=== PATIENT | female | born 1995 | race Caucasian/White ===

== ENCOUNTER 2016-10-21 02:12 | Emergency (ER) | payer MEDICAID ==
[~2016-10-21] VITALS: Ht 162.6 cm; Wt 65.5 kg
[~2016-10-21 02:12] MED LIST: AMOX-355 PO; AMOX500C2 PO; AMPI500C9 PO; CEFU500T PO; CEPH-38 PO; CEPH-507 PO; CEPH500C PO; CITA40TA11 PO; DEXT30SU5 PO; DOXY1TAB3 PO; FRS325T PO; GFCD10B PO; GUAN1TAB14 PO; NAPR-243 PO; NITR-65 PO; NITR100C3 PO; ONDA-42 SL; ONDA8TAB13 PO; ONDA8TAB9 PO; ONDAN4ODT PO; ONDN4T PO; PHEN-639 PO; PHEN100T17 PO; PHEN200T27 PO; PNV91TAB3 PO; PRD20T PO; PREN-115 PO; SERT100T PO; SERT50TA PO; SERT50TA9 PO; SULF-222 PO; TRM50T PO; [UNRECOGNIZED DRUG - CODE] PO
--- NOTE | 2016-10-21 02:36 | ED Cough/URI ---
General Chief Complaint: Cough/Cold/Flu Symptoms Stated Complaint: COUGHING NAUSEA HARD BREATHING Source: patient, RN notes reviewed Exam Limitations: no limitations History of Present Illness Time seen by provider: 02:34 Initial Comments Symptoms continue despite being given an antibiotic approx. 2 weeks ago. Has no idea what the antibiotic was and who prescribed it. Has used an albuterol inhaler in past, but is out. Timing/Duration: other (started around 10/07/16) Severity/Quality: severe, dry cough Prior Episodes/Possible Cause: no prior episodes Modifying Factors: Worse With Coughing Associated Symptoms: cough, shortness of breath Allergies and Home Medications Allergies Coded Allergies: No Known Drug Allergies (Unverified , 12/06/10) Home Medications Albuterol Sulfate 8.5 Gm Hfa.aer.ad #1 1-2 PUFF IH Q4H PRN PRN cough; SOA; wheezing Prescribed by: TACOS KAUR on 10/21/16333 Azithromycin 250 Mg Tablet #4 250 MG PO DAILY Prescribed by: TACOS KAUR on 10/21/16333 Pnv95/Ferrous Fumarate/FA 1 Each Tablet 1 EACH PO DAILY (Reported) Sertraline HCl 50 Mg Tablet 50 MG PO DAILY (Reported) Constitutional: see HPI Respiratory: see HPI cough short of breath : Yes All Other Systems Reviewed Negative Unless Noted: Yes (Negative excepted noted.) Past Uhzhatw-Dljzbb-Fubcry Hx Patient Social History Type Used: Cigarettes Former Smoker/When Quit: Jun 20, 2013 Recent Foreign Travel: No Contact w/Someone Who Travel: No Recent Hopitalizations: No (multiple recent ER visits) Immunizations Up To Date Tetanus Booster (TDap): More than 5yrs Date of Influenza Vaccine: Aug 20, 2014 Seasonal Allergies Seasonal Allergies: Yes Surgeries HX Surgeries: No Respiratory Hx Respiratory Disorders: Yes (WINTER INDUCED ASTHMA) Respiratory Disorders: Asthma Cardiovascular Hx Cardiac Disorders: No Neurological Hx Neurological Disorders: No Reproductive System Hx Reproductive Disorders: No Sexually Transmitted Disease: Yes HIV/AIDS: No Female Reproductive Disorders: Denies Genitourinary Hx Genitourinary Disorders: Yes Genitourinary Disorders: UTI-Chronic Gastrointestinal Hx Gastrointestinal Disorders: Yes Gastrointestinal Disorders: Gastroesophageal Reflux Musculoskeletal Hx Musculoskeletal Disorders: No Endocrine Hx Endocrine Disorders: No HEENT HX ENT Disorders: No Cancer Hx Cancer: No Psychosocial Hx Psychiatric Problems: Yes Behavioral Health Disorders: Anxiety, Depression Integumentary HX Skin/Integumentary Disorder: No Blood Transfusions Hx Blood Disorders: No Family Medical History Significant Family History: No Pertinent Family Hx Family Medial History: Family history: Asthma 03 MOTHER Family history: Diabetes mellitus 03 MOTHER History of - disorder 03 MOTHER Physical Exam Vital Signs Vital Sign - Last 12Hours 10/21/16 02:34 Temp 98.1 Pulse 97 Resp 16 B/P 128/81 Pulse Ox 95 Capillary Refill : General Appearance: WD/WN no apparent distress HEENT: pharynx normal Respiratory: lungs clear no respiratory distress decreased breath sounds Cardiovascular: regular rate, rhythm Gastrointestinal: other ((+) ) Neurologic/Psychiatric: no motor/sensory deficits alert normal mood/affect oriented x 3 Skin: warm/dry Progress/Results/Core Measures Results/Orders Lab Results Laboratory Tests Test 10/21/16 02:51 Range/Units Basophils # (Auto) 0.0 0.0-0.1 10^3/uL Basophils (%) (Auto) 0 0-10 % Eosinophils # (Auto) 0.4 H 0.0-0.3 10^3/uL Eosinophils (%) (Auto) 3 0-10 % Hematocrit 34 L 35-52 % Hemoglobin 11.5 11.5-16.0 G/DL Lymphocytes # (Auto) 3.2 1.0-4.0 X 10^3 Lymphocytes (%) (Auto) 23 12-44 % Mean Corpuscular Hemoglobin 28 25-34 PG Mean Corpuscular Hemoglobin Concent 34 32-36 G/DL Mean Corpuscular Volume 84 80-99 FL Mean Platelet Volume 10.6 H 7.4-10.4 FL Monocytes # (Auto) 1.2 H 0.0-1.0 X 10^3 Monocytes (%) (Auto) 9 0-12 % Neutrophils # (Auto) 9.0 H 1.8-7.8 X 10^3 Neutrophils (%) (Auto) 65 42-75 % Platelet Count 219 130-400 10^3/uL Red Blood Count 4.05 L 4.35-5.85 10^6/uL Red Cell Distribution Width 13.5 10.0-14.5 % White Blood Count 13.8 H 4.3-11.0 10^3/uL My Orders Orders-TACOS KAUR DO Cbc With Automated Diff (10/21/16 02:36) Azithromycin Tablet (Zithromax Tablet) (10/21/16 03:30) Vital Signs/I&O Vital Sign - Last 12Hours 10/21/16 02:34 Temp 98.1 Pulse 97 Resp 16 B/P 128/81 Pulse Ox 95 Departure Impression Impression: Primary Impression: Bronchitis Additional Impressions: Tobacco abuse Disposition: HOME, SELF-CARE Condition: Stable Departure-Patient Inst. Decision time for Depature: 03:32 Referrals: TATIANA WEI MD (PCP/Family) Primary Care Physician Patient Instructions: Acute Bronchitis, Adult (DC) Scripts Albuterol Sulfate (Proair Hfa)8.5 Gm Hfa.aer.ad1-2 Puff IH Q4H PRN cough; SOA; wheezing #1 INH Ref 0 Prov:TACOS KAUR DO 10/21/16 Azithromycin (Zithromax)250 Mg [id number] Mg PO DAILY #4 TAB Ref 0 Prov:TACOS KAUR DO 10/21/16 TACOS KAUR DO Oct 21, 2016 02:36
[2016-10-21 03:09] LABS: BASOPHILS % (AUTO) 0 % (0-10); EOSINOPHILS # (AUTO) 0.4 10^3/uL (0.0-0.3); EOSINOPHILS % (AUTO) 3 % (0-10); LYMPHOCYTES # (AUTO) 3.2 X 10^3 (1.0-4.0); LYMPHOCYTES % (AUTO) 23 % (12-44); MEAN CORPUSCULAR HEMOGLOBIN 28 PG (25-34); MEAN CORPUSCULAR HGB CONC 34 G/DL (32-36); MEAN CORPUSCULAR VOLUME 84 FL (80-99); MEAN PLATELET VOLUME 10.6 FL (7.4-10.4); MONOCYTES # (AUTO) 1.2 X 10^3 (0.0-1.0); MONOCYTES % (AUTO) 9 % (0-12); NEUTROPHILS % (AUTO) 65 % (42-75); PLATELET COUNT 219 10^3/uL (130-400); RED BLOOD COUNT 4.05 10^6/uL (4.35-5.85); RED CELL DISTRIBUTION WIDTH 13.5 % (10.0-14.5); WHITE BLOOD COUNT 13.8 10^3/uL (4.3-11.0)
[2016-10-21] MEDS ORDERED: AZITHROMYCIN 250 MG TAB (ZITHROMAX) PO ONE (03:30)
[2016-10-21] MEDS ORDERED: AZIT250T PO (03:34)
[2016-10-21] MEDS ORDERED: RT-ALBUINH IH (03:34)
[2016-10-21 03:38] VITALS: BP 123/75
== END 2016-10-21 03:38 | disposition home or self-care (01) ==
LOC: EDUNIT# 02:12 → ER 02:16
DX: J20.9 Acute bronchitis, unspecified (principal); O99.333 Smoking (tobacco) complicating pregnancy, third trimester; Z3A.00 Weeks of gestation of pregnancy not specified
CPT/HCPCS: 36415; 85025; 99283

== ENCOUNTER 2016-11-04 01:52 | Outpatient (CLI) | payer MEDICAID ==
[~2016-11-04] VITALS: Ht 162.6 cm; Wt 66.8 kg
[~2016-11-04 01:52] MED LIST changes: +AZIT250T PO; +RT-ALBUINH IH
[2016-11-04 02:03] VITALS: BP 119/62
[2016-11-04 02:46] LABS: BILIRUBIN,URINE NEGATIVE (NEGATIVE); KETONES,URINE NEGATIVE (NEGATIVE); LEUKOCYTE ESTERASE ,URINE 1+ (NEGATIVE); NITRITE,URINE NEGATIVE (NEGATIVE); PH,URINE 7 (5-9); PROTEIN,URINE 1+ (NEGATIVE); UROBILINOGEN,URINE 4 MG/DL (NORMAL); WBC,URINE RARE /HPF
[2016-11-04] MEDS ORDERED: LACTATED RINGERS 1,000 ML IV ONE ×2 (03:12→03:45)
--- NOTE | 2016-11-05 09:19 | Physician Query-Final Dx ---
LOIS CHUNG 11/05/16 0919: Final Diagnosis Give Final Diagnosis Please give Final Diagnosis KOLE LAMB MD 11/05/16 1130: Final Diagnosis Give Final Diagnosis 35 week gestation Lower abdominal pain LOIS CHUNG Nov 05, 2016 09:19 KOLE LAMB MD Nov 05, 2016 11:30
== END 2016-11-04 04:44 | disposition home or self-care (01) ==
LOC: WSo 01:52 → LDRP 01:53 → WSo 04:44
PROVIDERS: ATTEND Family Medicine
DX: O26.93 Pregnancy related conditions, unspecified, third trimester (principal); R10.9 Unspecified abdominal pain; Z3A.35 35 weeks gestation of pregnancy
CPT/HCPCS: 81000; 87088; 96360; 99214

== ENCOUNTER 2016-11-05 21:23 | Outpatient (CLI) | payer MEDICAID ==
[~2016-11-05] VITALS: Ht 162.6 cm; Wt 67.3 kg
[2016-11-05 21:35] VITALS: BP 107/64
[2016-11-05 22:05] VITALS: BP 107/65
[2016-11-05 22:22] LABS: BILIRUBIN,URINE NEGATIVE (NEGATIVE); KETONES,URINE NEGATIVE (NEGATIVE); LEUKOCYTE ESTERASE ,URINE 3+ (NEGATIVE); NITRITE,URINE NEGATIVE (NEGATIVE); PH,URINE 7 (5-9); PROTEIN,URINE NEGATIVE (NEGATIVE); UROBILINOGEN,URINE 1 MG/DL (NORMAL)
[2016-11-05 22:34] LABS: CALCIUM OXALATE CRYSTALS,UR FEW /LPF; WBC,URINE 25-50 /HPF
[2016-11-05 22:35] VITALS: BP 107/58
[2016-11-05 23:25] VITALS: BP 107/58
--- NOTE | 2016-11-06 14:40 | Physician Query-Final Dx ---
LOIS CHUNG 11/06/16 1440: Clinic Account Progress/Dx Physician Query: Please give diagnosis Date of Service Nov 05, 2016 at 21:23 TATIANA WEI MD 11/11/16 0734: Clinic Account Progress/Dx DIAGNOSIS: Diagnosis 1. Uterine irritability, non labor 2. IUP at 35 weeks LOIS CHUNG Nov 06, 2016 14:40 TATIANA WEI MD Nov 11, 2016 07:34
== END 2016-11-05 23:23 ==
LOC: LDRP 21:23 → WSo 21:23
PROVIDERS: ATTEND Family Medicine
DX: O26.93 Pregnancy related conditions, unspecified, third trimester (principal); Z3A.35 35 weeks gestation of pregnancy
CPT/HCPCS: 81000; 87088; 99214

== ENCOUNTER 2016-11-28 05:55 | Inpatient (IN) | payer MEDICAID ==
[~2016-11-28] VITALS: Ht 162.6 cm; Wt 69.6 kg
[2016-11-28] VITALS (40 sets, daily range): BP systolic 104–152; BP diastolic 54–100
[2016-11-28] MEDS ORDERED: D5 LR IV SOLUTION 0 ML IV ONE (05:58)
[2016-11-28] MEDS ORDERED: MINERAL OIL CONCENTRATE 99.9% 15 ML UDC TOP PRN (06:30)
[2016-11-28 06:43] LABS: BASOPHILS # (AUTO) 0.1 10^3/uL (0.0-0.1); BASOPHILS % (AUTO) 0 % (0-10); EOSINOPHILS # (AUTO) 0.3 10^3/uL (0.0-0.3); EOSINOPHILS % (AUTO) 2 % (0-10); LYMPHOCYTES # (AUTO) 2.8 X 10^3 (1.0-4.0); LYMPHOCYTES % (AUTO) 18 % (12-44); MEAN CORPUSCULAR HEMOGLOBIN 27 PG (25-34); MEAN CORPUSCULAR HGB CONC 33 G/DL (32-36); MEAN CORPUSCULAR VOLUME 81 FL (80-99); MONOCYTES # (AUTO) 1.2 X 10^3 (0.0-1.0); MONOCYTES % (AUTO) 8 % (0-12); NEUTROPHILS # (AUTO) 11.2 X 10^3 (1.8-7.8); NEUTROPHILS % (AUTO) 72 % (42-75); PLATELET COUNT 271 10^3/uL (130-400); RED BLOOD COUNT 4.07 10^6/uL (4.35-5.85); WHITE BLOOD COUNT 15.6 10^3/uL (4.3-11.0)
[2016-11-28] MEDS ORDERED: D5 LR IV SOLUTION 1,000 ML IV ONE ×2 (07:18→15:14)
[2016-11-28 07:21] LABS: BAND NEUTROPHILS 6 %; BASOPHILS % (MANUAL) 1 %; EOSINOPHILS % (MANUAL) 2 %; LYMPHOCYTES % (MANUAL) 26 %; MICROCYTOSIS SLIGHT; NEUTROPHILS % (MANUAL) 64 %
[2016-11-28] MEDS ORDERED: AMPICILLIN INJECTION 2,000 MG in NS (IVPB) 50 ML IV SCH (07:29)
[2016-11-28] MEDS ORDERED: OXYTOCIN/NORMAL SALINE 500 ML IV SCH ×2 (07:30→16:51)
--- NOTE | 2016-11-28 07:36 | History & Physical-OB ---
OB - Chief Complaint & HPI Date Date of Admission: Date of Admission: Nov 28, 2016 at 05:55 Chief Complaint/History OB-Reason for Admission/Chief: Induction of Labor Hx : 2 Hx Para: 1 Expected Date of Delivery: Dec 05, 2016 Gestational Age in Weeks: 39 Gestational Age in Days: 0 Admission Nurse Assessment Rev: Yes History of Labs GBS positive Allergies and Home Medications Allergies Coded Allergies: No Known Drug Allergies (Unverified , 11/04/16) Home Medications Pnv95/Ferrous Fumarate/FA 1 Each Tablet 1 EACH PO DAILY (Reported) Sertraline HCl 50 Mg Tablet 50 MG PO DAILY (Reported) OB - History Hx of Present Care: Yes Ultrasounds: Normal mid trimester US Obstetrical Complications: None Medical Complications: None Obstetrical History Hx Termination: No Hx Multiple Gestation: No Hx Stillbirth: No Hx Complication: No Hx Induced Hypertens: No Hx Maternal Gestational Diabet: No Delivery History Hx Dystocia: No Hx Large For Gestational Age I: No Hx Small for Gestational Age I: No Hx Section: No Hx Vaginal Delivery Post C-Sec: No Hx Blood Disorders: No Patient Past Medical History no chronic medical problems Social History/Family History HIV/AIDS: No Sexually Transmitted Disease: Yes Immunizations Tetanus Booster (TDap): More than 5yrs Date of Influenza Vaccine: Sep 11, 2016 OB - Admission Exam Physical Exam Vitals: Vital Signs 11/28/16 07:00 B/P 126/77 HEENT: Moist Membranes Heart: Rhythm Normal Lungs: Clear Abdomen: Gravid Extremities: Normal Cervical Dilatation: 2cm Effacement: 50% Membranes: Intact Short Term Variability: Present Contractions on Admission: 6-10 Minutes Apart Intensity: Mild Gamez Scoring Tool (Modified) Dilation (cm): 1-2cm (1) Effacement (%): 31-51% (1) Descent/Station: -2 (1) Cervix Consistency: Medium(1) Cervix Position: Middle/Mid-Position (1) Add 1 point for: Each previous vaginal delivery (1) Gamez Score: 6 Labs Laboratory Tests Test 11/28/16 06:15 Range/Units Band Neutrophils 6 % Basophils # (Auto) 0.1 0.0-0.1 10^3/uL Basophils % (Manual) 1 % Basophils (%) (Auto) 0 0-10 % Eosinophils # (Auto) 0.3 0.0-0.3 10^3/uL Eosinophils % (Manual) 2 % Eosinophils (%) (Auto) 2 0-10 % Hematocrit 33 L 35-52 % Hemoglobin 10.8 L 11.5-16.0 G/DL Lymphocytes # (Auto) 2.8 1.0-4.0 X 10^3 Lymphocytes % (Manual) 26 % Lymphocytes (%) (Auto) 18 12-44 % Mean Corpuscular Hemoglobin 27 25-34 PG Mean Corpuscular Hemoglobin Concent 33 32-36 G/DL Mean Corpuscular Volume 81 80-99 FL Mean Platelet Volume 11.0 H 7.4-10.4 FL Microcytosis SLIGHT Monocytes # (Auto) 1.2 H 0.0-1.0 X 10^3 Monocytes % (Manual) 1 % Monocytes (%) (Auto) 8 0-12 % Neutrophils # (Auto) 11.2 H 1.8-7.8 X 10^3 Neutrophils % (Manual) 64 % Neutrophils (%) (Auto) 72 42-75 % Platelet Count 271 130-400 10^3/uL Red Blood Count 4.07 L 4.35-5.85 10^6/uL Red Cell Distribution Width 14.0 10.0-14.5 % White Blood Count 15.6 H 4.3-11.0 10^3/uL OB - Assessment/Plan/Diagnosis Assessment Assessment: induction of labor Plan Plan: Induction (by AROM) Induction Method: AROM Other Plan 2. GBS positive -ampicillin protochol TATIANA WEI MD Nov 28, 2016 07:36
[2016-11-28] MEDS ORDERED: AMPICILLIN 2000 MG INJECTION (IM/IV) ONE (07:43)
[2016-11-28] MEDS: BUTORPHANOL INJ 2 MG/ML (STADOL) VIAL IV PRN ×2 (08:59→12:05)
[2016-11-28] MEDS ORDERED: AMPICILLIN INJECTION 1,000 MG in NS (IVPB) 50 ML IV SCH (11:30)
[2016-11-28] MEDS ORDERED: CATHETER FLUSH 10 ML SYR IV SCH ×2 (14:00→22:00)
[2016-11-28] MEDS ORDERED: MEPIVACAINE (CARBOCAINE) 2% 50 ML VIAL ONE (15:40)
[2016-11-28] MEDS: IBUPROFEN 600 MG (MOTRIN) TAB PO SCH (16:50)
--- NOTE | 2016-11-28 16:56 | OB Labor & Delivery Record ---
L&D History Date of Service Date of Service: Nov 28, 2016 History Expected Date of Delivery: Dec 05, 2016 Gestational Age in Weeks: 39 Hx : 2 Hx Para: 1 Complications Events: Routine care Operative Indications (Cesarea: N/A-Vaginal Delivery Intrapartal Events: None Other Complications GBS positive and she received 2 doses of ampicillin during labor L&D Stage1 Stage One Onset of Labor - Date: Nov 28, 2016 Onset of Labor - Time: 07:15 Monitors and Tracing Monitor Mode: Internal Heart Rate: 110 Monitor Accelerations: Uniform Monitor Decelerations: None Station: 0 Mcfp Variability: Average (6-10) Short Term Variability: Present Presentation: Vertex Vital Signs VS - Last 72 Hours, by Label 11/28/16 11/28/16 11/28/16 11/28/16 07:00 08:00 08:15 08:30 Pulse 92 88 80 Resp 18 18 18 B/P 126/77 122/77 124/70 130/61 O2 Delivery Room Air Room Air Room Air 11/28/16 11/28/16 11/28/16 11/28/16 08:45 09:00 09:15 09:30 Temp 97.6 Pulse 90 93 74 72 Resp 18 18 18 18 B/P 135/87 114/56 119/71 132/63 O2 Delivery Room Air Room Air Room Air Room Air 11/28/16 11/28/16 11/28/16 11/28/16 09:45 10:00 10:15 10:30 Temp 97.9 Pulse 79 81 91 94 Resp 18 18 18 18 B/P 122/59 118/59 134/90 119/76 O2 Delivery Room Air Room Air Room Air Room Air 11/28/16 11/28/16 11/28/16 11/28/16 10:45 11:00 11:15 11:30 Temp 98.1 Pulse 96 82 73 82 Resp 18 18 18 18 B/P 128/75 121/77 133/81 129/72 O2 Delivery Room Air Room Air Room Air Room Air 11/28/16 11/28/16 11/28/16 11/28/16 11:45 12:00 12:15 12:30 Pulse 85 93 82 93 Resp 18 18 18 18 B/P 110/63 108/69 117/63 120/65 O2 Delivery Room Air Room Air Room Air Room Air 11/28/16 11/28/16 11/28/16 11/28/16 12:45 13:00 13:15 13:30 Temp 97.8 Pulse 94 86 93 99 Resp 18 18 18 18 B/P 126/75 117/55 127/83 120/65 O2 Delivery Room Air Room Air Room Air Room Air 11/28/16 11/28/16 11/28/16 11/28/16 13:45 14:00 14:15 14:30 Temp 97.6 Pulse 83 88 98 93 Resp 18 18 18 18 B/P 136/72 138/71 137/60 120/56 O2 Delivery Room Air Room Air Room Air Room Air 11/28/16 11/28/16 11/28/16 11/28/16 14:45 15:00 15:15 15:30 Pulse 106 99 Resp 18 18 18 18 B/P 112/54 145/85 O2 Delivery Room Air Room Air Room Air Room Air 11/28/16 15:45 Pulse 112 Resp 18 B/P 141/100 O2 Delivery Room Air Signs of Distress by FHT Signs of Distress no Rupture of Membranes Spontaneous Ruture of Membrane: No Amniotic Membrane Rupture Time: 0723 Amniotic Membrane Fluid Desc.: Clear L&D Stage2 Stage Two Stage II Date: Nov 28, 2016 Stage II Time: 15:52 Monitors and Tracing Monitor Mode: Internal Heart Rate: 110 Monitor Accelerations: Uniform Monitor Decelerations: Early Mcfp Variability: Average (6-10) Short Term Variability: Present Position: Left Occiput Anterior Signs of Distress by FHT Signs of Distress no Cord Descript/Complications Cord Vessel Description: 3 Vessels Delivery Type Delivery Method: Spontaneous Vaginal Anterior Shoulder: Left Episiotomy/Perineal Laceration Laceraction(s)/Extensions: Yes Episiotomy Description: Midline Sutures Used: Vicryl Condition of Delivery 1 minute Comment: 8 5 minute Comment: 8 Condition of Infant Condition of : Living Exam: No Observed Abnormalities Resuscitation Resuscitation: N/A - Spontaneous Resp L&D Stage3 Stage Three Stage III Date: Nov 28, 2016 Stage III Time: 15:58 Pictocin Pitocin Administration mu/min: 12 Pitocin ml/hr: 12 Pitocin Administration Comment: Started at 0800 Placenta Delivery Placenta Delivery: Spontaneous Delivery Summary Summary Vaginal blood loss >500ml: No 200cc Condition of Delivery Examined: Cervix Examined Post Hemorrhage: No TATIANA WEI MD Nov 28, 2016 16:56
[2016-11-28] MEDS ORDERED: HYDROcodone/APAP 5 MG/325 MG (LORTAB) TAB PO PRN (17:00)
[2016-11-28] MEDS ORDERED: BENZOCAINE/MENTHOL (DERMOPLAST) 56 ML CAN TP PRN (17:00)
[2016-11-28] MEDS ORDERED: WITCH HAZEL(TUCKS) 40 EA JAR TOP PRN (17:00)
[2016-11-28] MEDS ORDERED: MEASLES,MUMPS,RUBELLA 1 EA INJ SQ ONE (17:00)
[2016-11-28] MEDS ORDERED: TETANUS,DIPTH,PERTUSS P/F (BOOSTRIX) 0.5 ML VIAL IM ONE (17:00)
[2016-11-29] MEDS: IBUPROFEN 600 MG (MOTRIN) TAB PO SCH ×3 (01:15→13:45)
[2016-11-29 01:35] VITALS: BP 101/61
[2016-11-29] MEDS ORDERED: PRENATAL VITAMIN 1 EA TAB PO SCH (07:00)
[2016-11-29 07:03] LABS: BASOPHILS % (AUTO) 0 % (0-10); EOSINOPHILS # (AUTO) 0.2 10^3/uL (0.0-0.3); EOSINOPHILS % (AUTO) 1 % (0-10); LYMPHOCYTES # (AUTO) 3.2 X 10^3 (1.0-4.0); LYMPHOCYTES % (AUTO) 19 % (12-44); MEAN CORPUSCULAR HEMOGLOBIN 27 PG (25-34); MEAN CORPUSCULAR HGB CONC 33 G/DL (32-36); MEAN CORPUSCULAR VOLUME 82 FL (80-99); MEAN PLATELET VOLUME 10.9 FL (7.4-10.4); MONOCYTES # (AUTO) 1.7 X 10^3 (0.0-1.0); MONOCYTES % (AUTO) 10 % (0-12); NEUTROPHILS # (AUTO) 12.2 X 10^3 (1.8-7.8); NEUTROPHILS % (AUTO) 70 % (42-75); PLATELET COUNT 256 10^3/uL (130-400); RED BLOOD COUNT 3.79 10^6/uL (4.35-5.85); WHITE BLOOD COUNT 17.3 10^3/uL (4.3-11.0)
--- NOTE | 2016-11-29 07:16 | Progress Note (SOAP) ---
Subjective Subjective/Events-last exam Patient voices no complaints this am. She is ambulatory and without SOB. Her vaginal bleeding has slowed down a lot. Objective Exam Last Set of Vital Signs Vital Signs Date Time Temp Pulse Resp B/P Pulse Ox O2 Delivery O2 Flow Rate FiO2 11/29/16 01:35 98.3 79 18 101/61 98 Room Air Capillary Refill : General: No Acute Distress Lungs: Clear to Auscultation Results/Procedures Lab Laboratory Tests 11/29/16 06:32: Basophils # (Auto) 0.0, Basophils (%) (Auto) 0, Eosinophils # (Auto) 0.2, Eosinophils (%) (Auto) 1, Hematocrit 31L, Hemoglobin 10.1L, Lymphocytes # (Auto ) 3.2, Lymphocytes (%) (Auto) 19, Mean Corpuscular Hemoglobin 27, Mean Corpuscular Hemoglobin Concent 33, Mean Corpuscular Volume 82, Mean Platelet Volume 10.9H, Monocytes # (Auto) 1.7H, Monocytes (%) (Auto) 10, Neutrophils # ( Auto) 12.2H, Neutrophils (%) (Auto) 70, Platelet Count 256, Red Blood Count 3.79L, Red Cell Distribution Width 14.0, White Blood Count 17.3H Assessment/Plan Assessment/Plan Plan 1. S/P day 1 -healthcare advisory services manager consult pending -possible home this afternoon -continue with routine PP care orders Diagnosis/Problems: Clinical Quality Measures DVT/VTE Risk/Contraindication: Risk Factor Score Per Nursin RFS Level Per Nursing on Admit: 1=Low/No VTE PPX TATIANA WEI MD Nov 29, 2016 07:16
[2016-11-29 08:30] VITALS: BP 106/70
[2016-11-29 13:15] VITALS: BP 116/72
[2016-11-29] MEDS ORDERED: IBUP-1773 PO (17:07)
[2016-11-29] MEDS ORDERED: MEASLES,MUMPS,RUBELLA 1 EA INJ ONE (17:09)
[2016-11-29 17:10] VITALS: BP 122/55
--- NOTE | 2016-11-29 17:26 | Discharge Summary ---
Diagnosis/Chief Complaint Date of Admission Nov 28, 2016 at 05:55 Date of Discharge Nov 29, 2016 Admission Diagnosis Admission Diagnosis 1. IUP at 39 weeks Discharge Diagnosis 1. IUP at 39 weeks Chief Complaint/HPI Chief Complaint/HPI 21 yo G2 now T2 who presents to L&D for induction of labor at 39 weeks gestation. Her EDC is Dec 05, 2016. care was uneventful. Discharge Summary-OBS Procedures 1. 2. Repair of MLE Discharge Physical Examination Allergies: Coded Allergies: No Known Drug Allergies (Unverified , 11/04/16) Vitals & I&Os Vital Sign - Last 12Hours Date Time Temp Pulse Resp B/P Pulse Ox O2 Delivery O2 Flow Rate FiO2 11/29/16 17:10 98.6 79 18 122/55 99 Room Air General Appearance: No Acute Distress Respiratory: Clear to Auscultation Cardiovascular: Regular Rate Abdominal: Normal Bowel Sounds, Soft Hospital Course Patient was admitted to women's services in the morning of November 28, 2016 for artificial rupture of membranes. She was noted to be at 39 weeks gestation. After AROM fluid was noted to be clear. Patient ultimately required low-dose Pitocin augmentation eventually went on to completion. Once the completion she was able to deliver over a midline episiotomy a a term viable infant with Apgars of 8 at 1 minute and 9 at 5 minutes. She received no epidural during the course of her labor and delivery. Following delivery patient underwent routine care orders. She had no complications during the remainder of her hospital stay. She remained afebrile with stable vital signs. She was ambulatory and without any chest complaints or shortness of breath. Her hemoglobin on the day after delivery November 29 was noted to be 10.1 with her predelivery of 10.8. All questions were answered on the morning of November 29 she was felt ready for dismissal during the afternoon. She will follow up in [facility] weeks at [facility] with myself. Labs Laboratory Tests 11/29/16 06:32: Basophils # (Auto) 0.0, Basophils (%) (Auto) 0, Eosinophils # (Auto) 0.2, Eosinophils (%) (Auto) 1, Hematocrit 31L, Hemoglobin 10.1L, Lymphocytes # (Auto ) 3.2, Lymphocytes (%) (Auto) 19, Mean Corpuscular Hemoglobin 27, Mean Corpuscular Hemoglobin Concent 33, Mean Corpuscular Volume 82, Mean Platelet Volume 10.9H, Monocytes # (Auto) 1.7H, Monocytes (%) (Auto) 10, Neutrophils # ( Auto) 12.2H, Neutrophils (%) (Auto) 70, Platelet Count 256, Red Blood Count 3.79L, Red Cell Distribution Width 14.0, White Blood Count 17.3H Discharge Instructions to patient/family Please see electonic discharge instructions given to patient. Discharge Medications Reviewed and agree with Discharge Medication list on patient's Discharge Instruction sheet Clinical Quality Measures DVT/VTE Risk/Contraindication: Risk Factor Score Per Nursin RFS Level Per Nursing on Admit: 1=Low/No VTE PPX TATIANA WEI MD Nov 29, 2016 17:26
[2016-11-29 18:00] VITALS: BP 122/55
== END 2016-11-29 18:00 | disposition home or self-care (01) | DRG 775 ==
LOC: LDRP 05:55
PROVIDERS: ADMIT Family Medicine; ATTEND Family Medicine
PROC: 0W8NXZZ Division of Female Perineum, External Approach (ICD-10-PCS; principal; 2016-11-28)
PROC: 10E0XZZ Delivery of Products of Conception, External Approach (ICD-10-PCS; 2016-11-28)
PROC: 10907ZC Drainage of Amniotic Fluid, Therapeutic from Products of Conception, Via Natural or Artificial Opening (ICD-10-PCS; 2016-11-28)
DX: O99.824 Streptococcus B carrier state complicating childbirth (principal); Z3A.39 39 weeks gestation of pregnancy; Z37.0 Single live birth; Z23 Encounter for immunization
CPT/HCPCS: 36415; 85007; 85025; 85027; 86850; 86900; 86901; 90707

== ENCOUNTER 2017-04-03 16:53 | Emergency (ER) | payer MEDICAID ==
[~2017-04-03] VITALS: Ht 162.6 cm; Wt 56.7 kg
[~2017-04-03 16:53] MED LIST changes: +IBUP-1773 PO
--- NOTE | 2017-04-03 18:00 | ED Abdominal Pain ---
General Chief Complaint: Abdominal/GI Problems Stated Complaint: ABD PAIN Nursing Triage Note: Pt c/o abd pain that "just started". Pt also reports nausea that started after eating approx 1 hour ago. Sepsis Screen: No Definite Risk Source of Information: Patient, RN Notes Reviewed Exam Limitations: No Limitations History of Present Illness Time Seen By Provider: 18:00 Initial Comments Patient presents c/ c/o lower abdominal pain that just began. Also c/o nausea that began about a hour ago p/ eating. No vomiting, diarrhea, or constipation. No known fever. Denies any symptoms. Hasn't tried anything for her pain. Pain somewhat similar to her pain @ the onset of her period but knows that isn' t it. Timing/Duration: 1 Hour Severity/Quality: Moderate Location: Periumbilical Radiation: No Radiation Activities at Onset: Other (nausea started p/ eating) Modifying Factors: Improves With Other (nothing) Associated Symptoms: Denies Symptoms Allergies and Home Medications Allergies Coded Allergies: No Known Drug Allergies (Unverified , 11/04/16) Home Medications Cephalexin 500 Mg Capsule, 500 MG PO TID, #21 Ref 0 Prescribed by: TACOS KAUR on 04/03/172004 Diclofenac Sodium 50 Mg Tablet.dr, 50 MG PO Q6H PRN for ABDOMINAL PAIN, #30 Ref 0 Prescribed by: TACOS KAUR on 04/03/172004 Review of Systems Constitutional: see HPI Gastrointestinal: See HPI, Abdominal Pain, Nausea All Other Systems Reviewed Negative Unless Noted: Yes (Negative excepted noted.) Past Qmvyawa-Eixlmx-Xvxtob Hx Patient Social History Alcohol Use: Denies Use Recreational Drug Use: No Type Used: Cigarettes Former Smoker/When Quit: Jun 20, 2013 Recent Foreign Travel: No Contact w/Someone Who Travel: No Recent Infectious Disease Expo: No Recent Hopitalizations: No Immunizations Up To Date Tetanus Booster (TDap): More than 5yrs PED Vaccines UTD: Yes Date of Influenza Vaccine: Oct 04, 2016 Seasonal Allergies Seasonal Allergies: Yes Surgeries HX Surgeries: No Respiratory Hx Respiratory Disorders: Yes (WINTER INDUCED ASTHMA) Respiratory Disorders: Asthma Cardiovascular Hx Cardiac Disorders: No Neurological Hx Neurological Disorders: No Reproductive System Hx Reproductive Disorders: No Sexually Transmitted Disease: Yes HIV/AIDS: No Female Reproductive Disorders: Denies Genitourinary Hx Genitourinary Disorders: Yes Genitourinary Disorders: UTI-Chronic Gastrointestinal Hx Gastrointestinal Disorders: Yes Gastrointestinal Disorders: Gastroesophageal Reflux Musculoskeletal Hx Musculoskeletal Disorders: No Endocrine Hx Endocrine Disorders: No HEENT HX ENT Disorders: No Cancer Hx Cancer: No Psychosocial Hx Psychiatric Problems: Yes Behavioral Health Disorders: Anxiety, Depression Integumentary HX Skin/Integumentary Disorder: No Blood Transfusions Hx Blood Disorders: No Family Medical History Significant Family History: No Pertinent Family Hx Family Medial History: Family history: Asthma 03 MOTHER Family history: Diabetes mellitus (type 2 diabetes) 03 MOTHER History of - disorder (anxiety, Brother has heart murmur) 03 MOTHER Physical Exam Vital Signs VS - Last 72 Hours, by Label 04/03/17 17:07 Temp 98.3 Pulse 74 Resp 18 B/P (MAP) 103/66 Pulse Ox 99 O2 Delivery Room Air Capillary Refill : Less Than 3 Seconds General Appearance: WD/WN, no apparent distress HEENT: normal ENT inspection Neck: normal inspection Respiratory: no respiratory distress Cardiovascular: regular rate, rhythm Gastrointestinal: soft, No distended, No guarding, No rebound, tenderness ( mild periumbilical) Rectal: deferred Back: no CVA tenderness Neurologic/Psychiatric: no motor/sensory deficits, alert, normal mood/affect, oriented x 3 Skin: warm/dry, No rash Progress/Results/Core Measures Results/Orders Lab Results Laboratory Tests Test 04/03/17 18:29 Range/Units White Blood Count 7.3 4.3-11.0 10^3/uL Red Blood Count 4.60 4.35-5.85 10^6/uL Hemoglobin 12.0 11.5-16.0 G/DL Hematocrit 37 35-52 % Mean Corpuscular Volume 80 80-99 FL Mean Corpuscular Hemoglobin 26 25-34 PG Mean Corpuscular Hemoglobin Concent 32 32-36 G/DL Red Cell Distribution Width 14.1 10.0-14.5 % Platelet Count 293 130-400 10^3/uL Mean Platelet Volume 10.8 H 7.4-10.4 FL Neutrophils (%) (Auto) 62 42-75 % Lymphocytes (%) (Auto) 26 12-44 % Monocytes (%) (Auto) 7 0-12 % Eosinophils (%) (Auto) 4 0-10 % Basophils (%) (Auto) 0 0-10 % Neutrophils # (Auto) 4.5 1.8-7.8 X 10^3 Lymphocytes # (Auto) 1.9 1.0-4.0 X 10^3 Monocytes # (Auto) 0.5 0.0-1.0 X 10^3 Eosinophils # (Auto) 0.3 0.0-0.3 10^3/uL Basophils # (Auto) 0.0 0.0-0.1 10^3/uL Urine Color YELLOW Urine Clarity SLIGHTLY CLOUDY Urine pH 6 5-9 Urine Specific [place] 1.025 H 1.016-1.022 Urine Protein 1+ H NEGATIVE Urine Glucose (UA) NEGATIVE NEGATIVE Urine Ketones NEGATIVE NEGATIVE Urine Nitrite NEGATIVE NEGATIVE Urine Bilirubin NEGATIVE NEGATIVE Urine Urobilinogen NORMAL NORMAL MG/DL Urine Leukocyte Esterase 2+ H NEGATIVE Urine RBC (Auto) 5+ H NEGATIVE Urine RBC 5-10 H /HPF Urine WBC 5-10 H /HPF Urine Squamous Epithelial Cells 10-25 H /HPF Urine Crystals PRESENT H /LPF Urine Calcium Oxalate Crystals FEW H /LPF Urine Bacteria FEW H /HPF Urine Casts NONE /LPF Urine Mucus SMALL H /LPF Urine Culture Indicated YES Urine Test NEGATIVE NEGATIVE Sodium Level 143 135-145 MMOL/L Potassium Level 3.7 3.6-5.0 MMOL/L Chloride Level 111 H 98-107 MMOL/L Carbon Dioxide Level 22 21-32 MMOL/L Anion Gap 10 5-14 MMOL/L Blood Urea Nitrogen 10 7-18 MG/DL Creatinine 0.77 0.60-1.30 MG/DL Estimat Glomerular Filtration Rate > 60 BUN/Creatinine Ratio 13 0-20 Glucose Level 98 70-105 MG/DL Calcium Level 9.0 8.5-10.1 MG/DL Total Bilirubin 0.4 0.1-1.0 MG/DL Aspartate Amino Transf (AST/SGOT) 13 5-34 U/L Alanine Aminotransferase (ALT/SGPT) 20 0-55 U/L Alkaline Phosphatase 47 40-136 U/L Total Protein 5.8 L 6.4-8.2 GM/DL Albumin 4.2 3.2-4.5 GM/DL My Orders Orders - TACOS KAUR DO Cbc With Automated Diff (04/03/17 17:57) Comprehensive Metabolic Panel (04/03/17 17:57) Hcg,Qualitative Urine (04/03/17 17:57) Ua Culture If Indicated (04/03/17 17:57) Ondansetron Oral Dissolve Tab (Zofran (04/03/17 18:15) Urine Culture (04/03/17 18:29) Cephalexin Capsule (Keflex Capsule) (04/03/17 20:15) Medications Given in ED Current Medications Medications Dose Ordered Sig/Adelita Route Start Time Stop Time Status Last Admin Dose Admin Ondansetron HCl 4 mg ONCE ONCE PO 04/03/17 18:15 04/03/17 18:16 DC 04/03/17 18:10 4 MG Vital Signs/I&O Vital Sign - Last 12Hours 04/03/17 17:07 Temp 98.3 Pulse 74 Resp 18 B/P (MAP) 103/66 Pulse Ox 99 O2 Delivery Room Air Blood Pressure Mean: 78 Departure Impression Impression: Primary Impression: Urinary tract infection Additional Impression: Abdominal pain Disposition: 01 HOME, SELF-CARE Condition: Stable Departure-Patient Inst. Referrals: MAYNOR MAYES MD Patient Instructions: Urinary Tract Infection, Adult (DC) Scripts Cephalexin (Keflex) 500 Mg Capsule 500 MG PO TID for UTI, #21 CAP 0 Refills Prov: TACOS KAUR DO 04/03/17 Diclofenac Sodium (Diclofenac Sodium) 50 Mg Tablet. 50 MG PO Q6H Y for ABDOMINAL PAIN, #30 TAB 0 Refills Prov: TACOS KAUR DO 04/03/17 TACOS KAUR DO Apr 03, 2017 18:00
[2017-04-03] MEDS ORDERED: ONDANSETRON 4 MG (ZOFRAN) ORAL DISSOLVE TAB PO ONE (18:15)
[2017-04-03 18:40] LABS: BASOPHILS % (AUTO) 0 % (0-10); EOSINOPHILS # (AUTO) 0.3 10^3/uL (0.0-0.3); EOSINOPHILS % (AUTO) 4 % (0-10); LYMPHOCYTES # (AUTO) 1.9 X 10^3 (1.0-4.0); LYMPHOCYTES % (AUTO) 26 % (12-44); MEAN CORPUSCULAR HEMOGLOBIN 26 PG (25-34); MEAN CORPUSCULAR HGB CONC 32 G/DL (32-36); MEAN CORPUSCULAR VOLUME 80 FL (80-99); MEAN PLATELET VOLUME 10.8 FL (7.4-10.4); MONOCYTES # (AUTO) 0.5 X 10^3 (0.0-1.0); MONOCYTES % (AUTO) 7 % (0-12); NEUTROPHILS # (AUTO) 4.5 X 10^3 (1.8-7.8); NEUTROPHILS % (AUTO) 62 % (42-75); PLATELET COUNT 293 10^3/uL (130-400); RED CELL DISTRIBUTION WIDTH 14.1 % (10.0-14.5); WHITE BLOOD COUNT 7.3 10^3/uL (4.3-11.0)
[2017-04-03 19:06] LABS: ALANINE AMINOTRANSFERASE 20 U/L (0-55); ALBUMIN 4.2 GM/DL (3.2-4.5); ANION GAP 10 MMOL/L (5-14); ASPARTATE AMINO TRANSFERASE 13 U/L (5-34); BILIRUBIN,TOTAL 0.4 MG/DL (0.1-1.0); BLOOD UREA NITROGEN 10 MG/DL (7-18); BUN/CREATININE RATIO 13 (0-20); CARBON DIOXIDE 22 MMOL/L (21-32); CHLORIDE 111 MMOL/L (98-107); CREATININE SERUM 0.77 MG/DL (0.60-1.30); GFR ESTIMATED > 60; GLUCOSE 98 MG/DL (70-105); HEMOLYSIS 3 (0-29); ICTERUS 0.5 (0-1.9); LIPEMIA -1 (0-49); POTASSIUM 3.7 MMOL/L (3.6-5.0); SODIUM 143 MMOL/L (135-145); TOTAL PROTEIN 5.8 GM/DL (6.4-8.2)
[2017-04-03 19:41] LABS: BILIRUBIN,URINE NEGATIVE (NEGATIVE); KETONES,URINE NEGATIVE (NEGATIVE); LEUKOCYTE ESTERASE ,URINE 2+ (NEGATIVE); NITRITE,URINE NEGATIVE (NEGATIVE); PH,URINE 6 (5-9); PROTEIN,URINE 1+ (NEGATIVE); UROBILINOGEN,URINE NORMAL (NORMAL)
[2017-04-03 19:50] LABS: CALCIUM OXALATE CRYSTALS,UR FEW /LPF
[2017-04-03] MEDS ORDERED: DICL50TA6 PO (20:05)
[2017-04-03] MEDS ORDERED: CEPH-507 PO (20:05)
[2017-04-03 20:10] VITALS: BP 138/60
[2017-04-03] MEDS ORDERED: CEPHALEXIN 250 MG (KEFLEX) CAP PO ONE (20:15)
== END 2017-04-03 20:10 | disposition home or self-care (01) ==
LOC: EDUNIT# 16:53 → ER 16:56
DX: N39.0 Urinary tract infection, site not specified (principal); J45.998 Other asthma; Z87.891 Personal history of nicotine dependence
CPT/HCPCS: 36415; 80053; 81000; 84703; 85025; 87088; 99283

== ENCOUNTER 2017-05-01 14:05 | Emergency (ER) | payer MEDICAID ==
[~2017-05-01] VITALS: Ht 162.6 cm; Wt 55.8 kg
[~2017-05-01 14:05] MED LIST changes: +DICL50TA6 PO
--- NOTE | 2017-05-01 14:22 | ED GU-Female ---
General Chief Complaint: -Female Stated Complaint: POSS UTI/STD Source: patient Exam Limitations: no limitations History of Present Illness Time seen by provider: 14:20 Initial Comments To ER with reports of urinary tract infection. She states that she has urinary frequency and burning upon urination. She denies suprapubic or pelvic pain in between urination and denies any vaginal discharge. She denies fevers or chills. She denies flank pain. She states that she had unprotected sex a week ago and would like screened for an STD as well. Timing/Duration: just prior to arrival Severity/Quality: moderate Location: unknown Radiation: none Prior Genitourinary Problems: none Associated Symptoms: dysuria, No lower back pain, No nausea/vomiting, urinary frequency Allergies and Home Medications Allergies Coded Allergies: No Known Drug Allergies (Unverified , 11/04/16) Home Medications Cephalexin 500 Mg Capsule, 500 MG PO TID, #21 Ref 0 Prescribed by: TACOS KAUR on 04/03/172004 Diclofenac Sodium 50 Mg Tablet.dr, 50 MG PO Q6H PRN for ABDOMINAL PAIN, #30 Ref 0 Prescribed by: TACOS KAUR on 04/03/172004 Constitutional: see HPI, No chills EENTM: see HPI Respiratory: no symptoms reported Cardiovascular: no symptoms reported Genitourinary: see HPI, dysuria, frequency Musculoskeletal: no symptoms reported Skin: no symptoms reported Psychiatric/Neurological: No Symptoms Reported Endocrine: No Symptoms Reported Past Iimpdgm-Bfonoi-Gfamfb Hx Patient Social History Alcohol Use: Denies Use Recreational Drug Use: No Smoking Status: Former Smoker Type Used: Cigarettes Former Smoker/When Quit: Jun 20, 2013 2nd Hand Smoke Exposure: No Recent Foreign Travel: No Contact w/Someone Who Travel: No Recent Hopitalizations: No Immunizations Up To Date Tetanus Booster (TDap): More than 5yrs PED Vaccines UTD: No Date of Influenza Vaccine: Oct 04, 2016 Seasonal Allergies Seasonal Allergies: Yes Surgeries HX Surgeries: No Respiratory Hx Respiratory Disorders: Yes (WINTER INDUCED ASTHMA) Respiratory Disorders: Asthma Cardiovascular Hx Cardiac Disorders: No Neurological Hx Neurological Disorders: No Reproductive System Hx Reproductive Disorders: No Sexually Transmitted Disease: Yes HIV/AIDS: No Female Reproductive Disorders: Denies Genitourinary Hx Genitourinary Disorders: Yes Genitourinary Disorders: UTI-Chronic Gastrointestinal Hx Gastrointestinal Disorders: Yes Gastrointestinal Disorders: Gastroesophageal Reflux Musculoskeletal Hx Musculoskeletal Disorders: No Endocrine Hx Endocrine Disorders: No HEENT HX ENT Disorders: No Cancer Hx Cancer: No Psychosocial Hx Psychiatric Problems: Yes Behavioral Health Disorders: Anxiety, Depression Integumentary HX Skin/Integumentary Disorder: No Blood Transfusions Hx Blood Disorders: No Family Medical History Significant Family History: No Pertinent Family Hx Family Medial History: Family history: Asthma 03 MOTHER Family history: Diabetes mellitus (type 2 diabetes) 03 MOTHER History of - disorder (anxiety, Brother has heart murmur) 03 MOTHER Physical Exam Vital Signs Vital Sign - Last 12Hours 05/01/17 14:11 Temp 98.1 Pulse 86 Resp 20 B/P (MAP) 123/70 Pulse Ox 100 O2 Delivery Room Air Capillary Refill : General Appearance: WD/WN, no apparent distress HEENT: PERRL/EOMI, normal ENT inspection Neck: non-tender, full range of motion Respiratory: no respiratory distress, no accessory muscle use Gastrointestinal: normal bowel sounds, non tender, soft Extremities: normal range of motion, non-tender Neurologic/Psychiatric: alert, normal mood/affect, oriented x 3 Skin: normal color, warm/dry Progress/Results/Core Measures Results/Orders Lab Results Laboratory Tests Test 05/01/17 14:13 Range/Units Urine Color YELLOW Urine Clarity CLEAR Urine pH 8 5-9 Urine Specific [place] 1.010 L 1.016-1.022 Urine Protein 1+ H NEGATIVE Urine Glucose (UA) NEGATIVE NEGATIVE Urine Ketones NEGATIVE NEGATIVE Urine Nitrite NEGATIVE NEGATIVE Urine Bilirubin NEGATIVE NEGATIVE Urine Urobilinogen NORMAL NORMAL MG/DL Urine Leukocyte Esterase 1+ H NEGATIVE Urine RBC (Auto) NEGATIVE NEGATIVE Urine RBC 0-2 /HPF Urine WBC 2-5 /HPF Urine Squamous Epithelial Cells 2-5 /HPF Urine Crystals NONE /LPF Urine Bacteria TRACE /HPF Urine Casts NONE /LPF Urine Mucus NEGATIVE /LPF Urine Culture Indicated NO My Orders Orders - GLO BLOOM APRN Ua Culture If Indicated (05/01/17 14:20) Wet Prep (05/01/17 14:54) Neisseria Gonorrhea Dna (05/01/17 14:54) Chlamydia Dna (05/01/17 14:54) Genital Culture (05/01/17 14:54) Vital Signs/I&O Vital Sign - Last 12Hours 05/01/17 14:11 Temp 98.1 Pulse 86 Resp 20 B/P (MAP) 123/70 Pulse Ox 100 O2 Delivery Room Air Departure Communication Progress Notes 1455-I did discuss the normal urinalysis with the patient and the need to pursue pelvic exam to evaluate for pelvic infection as a cause for her symptoms. However, she states she does not want to do that today and will have this done with her primary care provider. Impression Impression: Primary Impression: Dysuria Disposition: 01 HOME, SELF-CARE Condition: Stable Departure-Patient Inst. Decision time for Depature: 14:56 Referrals: NO,LOCAL PHYSICIAN (PCP) Primary Care Physician Add. Discharge Instructions: 1. Follow-up with her regular doctor to have the pelvic exam done 2. Return to ER for any concerns All discharge instructions reviewed with patient and/or family. Voiced understanding. GLO BLOOM CONCRETE ANALYST May 01, 2017 14:22
[2017-05-01 14:29] LABS: BILIRUBIN,URINE NEGATIVE (NEGATIVE); KETONES,URINE NEGATIVE (NEGATIVE); LEUKOCYTE ESTERASE ,URINE 1+ (NEGATIVE); NITRITE,URINE NEGATIVE (NEGATIVE); PH,URINE 8 (5-9); PROTEIN,URINE 1+ (NEGATIVE); UROBILINOGEN,URINE NORMAL (NORMAL)
[2017-05-01 15:00] VITALS: BP 123/70
== END 2017-05-01 15:00 | disposition home or self-care (01) ==
LOC: EDUNIT# 14:05 → ER 14:07
DX: R30.0 Dysuria (principal)
CPT/HCPCS: 81000; 99282

== ENCOUNTER 2017-05-14 21:26 | Emergency (ER) | payer MEDICAID ==
[~2017-05-14] VITALS: Ht 162.6 cm; Wt 54.4 kg
--- NOTE | 2017-05-14 21:44 | ED General ---
General Stated Complaint: CHILLS;THROAT PAIN Source of Information: Patient Exam Limitations: No Limitations History of Present Illness Time Seen by Provider: 21:43 Initial Comments To ER with reports of chills, "bone pain", sore throat since this morning. Timing/Duration: 1-2 Days Severity: Moderate Associated Systoms: Fever/Chills Allergies and Home Medications Allergies Coded Allergies: No Known Drug Allergies (Unverified , 11/04/16) Home Medications Cephalexin 500 Mg Capsule, 500 MG PO TID, #21 Ref 0 Prescribed by: TACOS KAUR on 04/03/172004 Cephalexin 500 Mg Capsule, 500 MG PO TID, #21 Prescribed by: GLO BLOOM on 05/14/172218 Diclofenac Sodium 50 Mg Tablet.dr, 50 MG PO Q6H PRN for ABDOMINAL PAIN, #30 Ref 0 Prescribed by: TACOS KAUR on 04/03/172004 Prednisone 20 Mg Tab, 40 MG PO DAILY, #4 Prescribed by: GOL BLOOM on 05/14/179 Constitutional: see HPI, chills, fever, malaise EENTM: see HPI Respiratory: no symptoms reported Cardiovascular: no symptoms reported Genitourinary: no symptoms reported Musculoskeletal: no symptoms reported Skin: no symptoms reported Psychiatric/Neurological: No Symptoms Reported Hematologic/Lymphatic: No Symptoms Reported Past Pkamkom-Pebqpv-Uvwbbr Hx Patient Social History Type Used: Cigarettes Former Smoker/When Quit: Jun 20, 2013 2nd Hand Smoke Exposure: No Recent Foreign Travel: No Contact w/Someone Who Travel: No Recent Hopitalizations: No Immunizations Up To Date Tetanus Booster (TDap): More than 5yrs PED Vaccines UTD: No Date of Influenza Vaccine: Oct 04, 2016 Seasonal Allergies Seasonal Allergies: Yes Surgeries HX Surgeries: No Respiratory Hx Respiratory Disorders: Yes (WINTER INDUCED ASTHMA) Respiratory Disorders: Asthma Cardiovascular Hx Cardiac Disorders: No Neurological Hx Neurological Disorders: No Reproductive System Hx Reproductive Disorders: No Sexually Transmitted Disease: Yes HIV/AIDS: No Female Reproductive Disorders: Denies Genitourinary Hx Genitourinary Disorders: Yes Genitourinary Disorders: UTI-Chronic Gastrointestinal Hx Gastrointestinal Disorders: Yes Gastrointestinal Disorders: Gastroesophageal Reflux Musculoskeletal Hx Musculoskeletal Disorders: No Endocrine Hx Endocrine Disorders: No HEENT HX ENT Disorders: No Cancer Hx Cancer: No Psychosocial Hx Psychiatric Problems: Yes Behavioral Health Disorders: Anxiety, Depression Integumentary HX Skin/Integumentary Disorder: No Blood Transfusions Hx Blood Disorders: No Family Medical History Significant Family History: No Pertinent Family Hx Family Medial History: Family history: Asthma 03 MOTHER Family history: Diabetes mellitus (type 2 diabetes) 03 MOTHER History of - disorder (anxiety, Brother has heart murmur) 03 MOTHER Physical Exam Vital Signs Vital Sign - Last 12Hours 05/14/17 21:40 Temp 102.1 Pulse 118 Resp 20 B/P (MAP) 96/62 Pulse Ox 99 O2 Delivery Room Air Capillary Refill : General Appearance: No Apparent Distress, WD/WN Eyes: Bilateral Eye EOMI, Bilateral Eye Normal Inspection, Bilateral Eye PERRL HEENT: PERRL/EOMI, TMs Normal Neck: Full Range of Motion, Normal Inspection, Lymphadenopathy (L), Lymphadenopathy (R) Respiratory: Normal Breath Sounds, No Accessory Muscle Use, No Respiratory Distress Cardiovascular: Regular Rate, Rhythm, Normal Peripheral Pulses Gastrointestinal: Normal Bowel Sounds, Non Tender, Soft Extremity: Normal Capillary Refill, Normal Inspection Neurologic/Psychiatric: Alert, Oriented x3, No Motor/Sensory Deficits Skin: Normal Color, Warm/Dry Progress/Results/Core Measures Results/Orders Lab Results Laboratory Tests Test 05/14/17 21:53 Range/Units White Blood Count 6.4 4.3-11.0 10^3/uL Red Blood Count 4.64 4.35-5.85 10^6/uL Hemoglobin 12.2 11.5-16.0 G/DL Hematocrit 37 35-52 % Mean Corpuscular Volume 79 L 80-99 FL Mean Corpuscular Hemoglobin 26 25-34 PG Mean Corpuscular Hemoglobin Concent 33 32-36 G/DL Red Cell Distribution Width 15.9 H 10.0-14.5 % Platelet Count 273 130-400 10^3/uL Mean Platelet Volume 10.7 H 7.4-10.4 FL Neutrophils (%) (Auto) 74 42-75 % Lymphocytes (%) (Auto) 12 12-44 % Monocytes (%) (Auto) 13 H 0-12 % Eosinophils (%) (Auto) 1 0-10 % Basophils (%) (Auto) 0 0-10 % Neutrophils # (Auto) 4.8 1.8-7.8 X 10^3 Lymphocytes # (Auto) 0.8 L 1.0-4.0 X 10^3 Monocytes # (Auto) 0.8 0.0-1.0 X 10^3 Eosinophils # (Auto) 0.1 0.0-0.3 10^3/uL Basophils # (Auto) 0.0 0.0-0.1 10^3/uL Monoscreen NEGATIVE NEGATIVE Group A Streptococcus Screen NEGATIVE NEGATIVE My Orders Orders - GLO BLOOM APRN Cbc With Automated Diff (05/14/17 21:42) Monotest (05/14/17 21:42) Rapid Strep A Screen (05/14/17 21:42) Ibuprofen Tablet (Motrin Tablet) (05/14/17 21:45) Prednisone Tablet (Deltasone Tablet) (05/14/17 22:30) Medications Given in ED Vital Signs/I&O Departure Impression Impression: Primary Impression: Pharyngitis Disposition: 01 HOME, SELF-CARE Condition: Stable Departure-Patient Inst. Decision time for Depature: 22:17 Referrals: NO,LOCAL PHYSICIAN (PCP/Family) Primary Care Physician Patient Instructions: Viral Pharyngitis Add. Discharge Instructions: 1. Tylenol and Motrin for pain 2. Drink plenty of fluids 3. Scripts Cephalexin (Keflex) 500 Mg Capsule 500 MG PO TID, #21 CAP Prov: GLO BLOOM APRN 05/14/17 Prednisone (Prednisone) 20 Mg Tab 40 MG PO DAILY, #4 TAB Prov: GLO BLOOM APRN 05/14/17 GLO BLOOM APRN May 14, 2017 21:44
[2017-05-14] MEDS ORDERED: IBUPROFEN 800 MG (MOTRIN) TAB PO ONE (21:45)
[2017-05-14 22:03] LABS: BASOPHILS % (AUTO) 0 % (0-10); EOSINOPHILS # (AUTO) 0.1 10^3/uL (0.0-0.3); EOSINOPHILS % (AUTO) 1 % (0-10); LYMPHOCYTES # (AUTO) 0.8 X 10^3 (1.0-4.0); LYMPHOCYTES % (AUTO) 12 % (12-44); MEAN CORPUSCULAR HEMOGLOBIN 26 PG (25-34); MEAN CORPUSCULAR HGB CONC 33 G/DL (32-36); MEAN CORPUSCULAR VOLUME 79 FL (80-99); MEAN PLATELET VOLUME 10.7 FL (7.4-10.4); MONOCYTES # (AUTO) 0.8 X 10^3 (0.0-1.0); MONOCYTES % (AUTO) 13 % (0-12); NEUTROPHILS # (AUTO) 4.8 X 10^3 (1.8-7.8); NEUTROPHILS % (AUTO) 74 % (42-75); PLATELET COUNT 273 10^3/uL (130-400); RED BLOOD COUNT 4.64 10^6/uL (4.35-5.85); RED CELL DISTRIBUTION WIDTH 15.9 % (10.0-14.5); WHITE BLOOD COUNT 6.4 10^3/uL (4.3-11.0)
[2017-05-14] MEDS ORDERED: PRD20T PO (22:19)
[2017-05-14] MEDS ORDERED: CEPH-507 PO (22:19)
[2017-05-14 22:28] VITALS: BP 0/0
[2017-05-14] MEDS ORDERED: predniSONE 20 MG TAB PO ONE (22:30)
== END 2017-05-14 22:28 | disposition home or self-care (01) ==
LOC: EDUNIT# 21:26 → ER 21:27
DX: J02.9 Acute pharyngitis, unspecified (principal); K21.9 Gastro-esophageal reflux disease without esophagitis; F41.9 Anxiety disorder, unspecified; F32.9 Major depressive disorder, single episode, unspecified; J45.909 Unspecified asthma, uncomplicated; Z87.891 Personal history of nicotine dependence
CPT/HCPCS: 36415; 85025; 86308; 87430; 99283

== ENCOUNTER 2017-06-17 01:00 | Emergency (ER) | payer MEDICAID ==
[~2017-06-17] VITALS: Ht 162.6 cm; Wt 53.1 kg
--- OUTSIDE RECORDS SUMMARY | 2017-06-17 01:15 | XMS REPORT ---
Author Author TATIANA WEI Organization [facility] Address [address] [place] [address] Care Team Providers Care Electronic Commerce Specialist Name Role Phone TATIANA WEI Unavailable PROBLEMS Type Condition ICD9-CM Code [id number] Code Onset Dates Condition Status SNOMED Code Problem Adjustment disorder with anxiety F43.22 Active 78913460 Problem Normal in second trimester Z34.92 Active 98661279 Problem Adjustment disorder with depressed mood F43.21 Active 749424167 Problem Normal in first trimester Z34.91 Active 06726504 Problem Bipolar 1 disorder, manic, mild F31.11 Active 07697007 ALLERGIES Substance Reaction Event Type Date Status N.K.D.A. Unknown Non Drug Allergy Sep, Unknown SOCIAL HISTORY No smoking Hx information available PLAN OF CARE Activity Details Follow Up 2 Weeks Reason: VITAL SIGNS Height 63.75 in 2016-10-16 Weight 144.8 lbs 2016-10-16 Temperature 97.9 degrees Fahrenheit 2016-10-16 Heart Rate 88 bpm 2016-10-16 Respiratory Rate 20 2016-10-16 BMI 25.05 kg/m2 2016-10-16 Blood pressure systolic 110 mmHg 2016-10-16 Blood pressure diastolic 76 mmHg 2016-10-16 MEDICATIONS Medication Instructions Dosage Frequency Start Date End Date Duration Status Omeprazole 10 mg Orally Once a day 2 capsules 24h Sep, 30 day(s ) Active Zoloft 50 MG Orally Once a day 1 tablet 24h 15 May, 2016 30 days Active Plus/Iron 27-1 MG Orally Once a day 1 tablet 24h May, 30 days Active RESULTS Name Result Date Reference Range UA OB DIP (IN HOUSE) 2016-10-16 Glucose Negative Protein Negative PROCEDURES Procedure Date Ordered Related Diagnosis Body Site URINE-NO MICRO Oct 16, 2016 Office Visit, Est Pt., Level 3 Oct 16, 2016 IMMUNIZATIONS No Known Immunizations
[2017-06-17] MEDS ORDERED: RX-HYDROXYZINE PAMOATE 25 MG CAP #4 PO STA (01:23)
--- NOTE | 2017-06-17 01:28 | ED Psychosocial ---
General Chief Complaint: Psych/Social Disorder Stated Complaint: CHEST PAIN SOA Nursing Triage Note: C/O CP/SOA WITH INCREASED ANXIETY D/T IMPENDING ADOPTION OF DAUGHTER. Source: patient Exam Limitations: no limitations History of Present Illness Time seen by provider: 01:23 Initial Comments Patient presents with a chief complaint of chest tightening and pain in the center chest as well as shortness of breath feeling her vision narrowing. She is not having any tingling of her hands or feet numbness or cough. She's had no fevers chills rash. No history of premature family cardiac history. She does however have a well established history of anxiety disorder with panic attack. She has in the past been prescribed Vistaril. She is without a primary care physician at this time and she has ran out of her Vistaril. She thinks that this is her prototypical presentation for her panic disorder and is interested in getting more Vistaril. She has no other significant medical history. She is going through a lot of stress right now dealing with the courts and her daughter has been removed for custody recently which is she thinks triggering a lot of her problems right now. She says she feels safe and is denying suicidal ideation. Allergies and Home Medications Allergies Coded Allergies: No Known Drug Allergies (Unverified , 11/04/16) Home Medications No Active Prescriptions or Reported Meds Constitutional: No chills, No diaphoresis, No dizziness, No fever, No malaise, No weakness EENTM: No ear pain, No eye pain Respiratory: No cough, No short of breath Cardiovascular: see HPI, chest pain, No edema, No Hx of Intervention, palpitations, No syncope, No vascular heart diseas Gastrointestinal: No abdominal pain, No constipation, No diarrhea, No nausea, No vomiting Genitourinary: No discharge, No dysuria : No Skin: No pruritus, No rash Psychiatric/Neurological: Denies Headache, Denies Numbness, Denies Paresthesia Past Uwnbdtj-Rewyfw-Inaiwq Hx Patient Social History Alcohol Use: Denies Use Recreational Drug Use: No Smoking Status: Former Smoker Type Used: Cigarettes Former Smoker, Quit: Oct 19, 2016 2nd Hand Smoke Exposure: No Recent Foreign Travel: No Contact w/Someone Who Travel: No Recent Infectious Disease Expo: No Recent Hopitalizations: No Immunizations Up To Date Tetanus Booster (TDap): Unknown PED Vaccines UTD: No Date of Influenza Vaccine: Oct 04, 2016 Seasonal Allergies Seasonal Allergies: Yes Surgeries History of Surgeries: No Respiratory History of Respiratory Disorde: Yes (WINTER INDUCED ASTHMA) Respiratory Disorders: Asthma Currently Using CPAP: No Currently Using BIPAP: No Cardiovascular History of Cardiac Disorders: No Neurological History of Neurological Disord: No Reproductive System : No Hx Reproductive Disorders: No Sexually Transmitted Disease: Yes HIV/AIDS: No Female Reproductive Disorders: Denies Genitourinary History of Genitourinary Disor: No Genitourinary Disorders: UTI-Chronic Gastrointestinal History of Gastrointestinal Di: No Gastrointestinal Disorders: Gastroesophageal Reflux Musculoskeletal History of Musculoskeletal Dis: No Endocrine History of Endocrine Disorders: No HEENT History of HEENT Disorders: No Cancer History of Cancer: No Psychosocial History of Psychiatric Problem: Yes Behavioral Health Disorders: Anxiety, Depression Integumentary History of Skin or Integumenta: No Blood Transfusions History of Blood Disorders: No Family Medical History Significant Family History: No Pertinent Family Hx Family Medial History: Family history: Asthma 03 MOTHER Family history: Diabetes mellitus (type 2 diabetes) 03 MOTHER History of - disorder (anxiety, Brother has heart murmur) 03 MOTHER Physical Exam Vital Signs Vital Sign - Last 12Hours 06/17/17 01:17 Temp 97.8 Pulse 68 Resp 16 B/P (MAP) 119/60 Pulse Ox 100 O2 Delivery Room Air Capillary Refill : Less Than 3 Seconds General Appearance: WD/WN, no apparent distress HEENT: PERRL/EOMI, normal ENT inspection, pharynx normal Neck: non-tender, normal inspection Respiratory: chest non-tender, lungs clear, normal breath sounds Cardiovascular: normal peripheral pulses, regular rate, rhythm, no edema, no murmur Peripheral Pulses: 2+ Radial Pulses (R), 2+ Radial Pulses (L) Gastrointestinal: normal bowel sounds, non tender, soft Extremities: normal range of motion, normal inspection, no pedal edema, normal capillary refill Neurologic/Psychiatric: no motor/sensory deficits, alert, oriented x 3, other ( anxious appearing) Appearance/Memory: appropriate appearance, appropriate insight, neat, no memory impairment Behavior/Eye Contact: cooperative, good eye contact, normal speech Thoughts/Hallucinations: normal thought pattern Skin: normal color, warm/dry Progress/Results/Core Measures Results/Orders My Orders Orders - BRENDA KIRBY Rx-Hydroxyzine Pamoate (Rx-Vistaril) (06/17/17 01:23) Vital Signs/I&O Vital Sign - Last 12Hours 06/17/17 01:17 Temp 97.8 Pulse 68 Resp 16 B/P (MAP) 119/60 Pulse Ox 100 O2 Delivery Room Air Blood Pressure Mean: 79 Departure Impression Impression: Primary Impression: Panic disorder Disposition: 01 HOME, SELF-CARE Condition: Stable Departure-Patient Inst. Decision time for Depature: 01:25 Referrals: NO,LOCAL PHYSICIAN (PCP/Family) Primary Care Physician Patient Instructions: Panic Disorder (DC) Add. Discharge Instructions: The moment he started noticing your panic disorder coming on with her vision, tingling hands or fingers, rest breathing, chest pounding you should take one of your Vistaril/hydroxyzine tablets and remove yourself to a quiet dark place with minimal distraction. Work on focusing on only your breathing by closing her eyes and following the molecules of air in your nose and out your mouth for 20 breaths. If you develop new or worsening symptoms such as a fever nausea and vomiting or chest pain unrelieved by these interventions you may want to follow up with your primary care physician or return to the ER. I highly suggest you establish with a primary care physician for refills and continued management as there are probably some daily medicines that would be much more helpful to prevent your panic disorder than a medicine that you take after it already taken hold of yourself. All discharge instructions reviewed with patient and/or family. Voiced understanding. Scripts Hydroxyzine Pamoate (Vistaril) 25 Mg Capsule 25 MG PO Q6H Y for ANXIETY, #30 CAP 0 Refills Prov: BRENDA KIRBY 06/17/17 BRENDA KIRBY Jun 17, 2017 01:28
[2017-06-17 01:29] VITALS: BP 119/60
[2017-06-17] MEDS ORDERED: HYDR25CA PO (01:31)
== END 2017-06-17 01:29 | disposition home or self-care (01) ==
LOC: EDUNIT# 01:00 → ER 01:04
DX: F41.0 Panic disorder [episodic paroxysmal anxiety] (principal); F32.9 Major depressive disorder, single episode, unspecified; J45.909 Unspecified asthma, uncomplicated; K21.9 Gastro-esophageal reflux disease without esophagitis; Z87.440 Personal history of urinary (tract) infections; Z87.891 Personal history of nicotine dependence
CPT/HCPCS: 99283

== ENCOUNTER 2017-07-14 18:14 | Emergency (ER) | payer MEDICAID ==
[~2017-07-14] VITALS: Ht 160 cm; Wt 50.8 kg
[~2017-07-14 18:14] MED LIST changes: +HYDR25CA PO
--- OUTSIDE RECORDS SUMMARY | 2017-07-14 18:21 | XMS REPORT ---
Author Author KOLE LAMB [facility] Address [address] [place] [address] Care Team Providers Care Pediatric Neuropsychologist Name Role Phone KOLE LAMB Unavailable PROBLEMS Type Condition ICD9-CM Code [id number] Code Onset Dates Condition Status SNOMED Code Problem Adjustment disorder with anxiety F43.22 Active 24045922 Problem Normal in second trimester Z34.92 Active 17254393 Problem Adjustment disorder with depressed mood F43.21 Active 580162133 Problem Normal in first trimester Z34.91 Active 83927887 Problem Bipolar 1 disorder, manic, mild F31.11 Active 51652501 ALLERGIES No Known Allergies SOCIAL HISTORY No smoking Hx information available PLAN OF CARE VITAL SIGNS MEDICATIONS No Known Medications RESULTS No Results PROCEDURES No Known procedures IMMUNIZATIONS No Known Immunizations
--- OUTSIDE RECORDS SUMMARY | 2017-07-14 18:21 | XMS REPORT ---
Author Author TATIANA WEI Organization [facility] Address [address] [place] [address] Care Team Providers Care Analytical Consultant Name Role Phone TATIANA WEI Unavailable PROBLEMS Type Condition ICD9-CM Code [id number] Code Onset Dates Condition Status SNOMED Code Problem Adjustment disorder with anxiety F43.22 Active 80446659 Problem Normal in second trimester Z34.92 Active 24137858 Problem Adjustment disorder with depressed mood F43.21 Active 539800237 Problem Normal in first trimester Z34.91 Active 86999521 Problem Bipolar 1 disorder, manic, mild F31.11 Active 09406610 ALLERGIES No Information SOCIAL HISTORY Never Assessed PLAN OF CARE Activity Details Follow Up following delivery Reason: VITAL SIGNS MEDICATIONS Medication Instructions Dosage Frequency Start Date End Date Duration Status Plus/Iron 27-1 MG Orally Once a day 1 tablet 24h 24 May, 2016 30 days Active Zoloft 50 MG Orally Once a day 1 tablet 24h 15 May, 2016 30 days Active RESULTS Name Result Date Reference Range UA OB DIP (IN HOUSE) 2016-11-27 Glucose negative Protein negative PROCEDURES Procedure Date Ordered Result Body Site URINE-NO MICRO Nov 27, 2016 IMMUNIZATIONS No Known Immunizations MEDICAL (GENERAL) HISTORY Type Description Date Medical History Adjustment disorder with mixed disturbance of emotions and conduct Medical History Major depressive disorder, recurrent episode, moderate (past) Medical History Adjustment disorder with depressed mood (past) Medical History iron deficiency Medical History Bipolar Hospitalization History childbirth 01/2014
--- OUTSIDE RECORDS SUMMARY | 2017-07-14 18:21 | XMS REPORT ---
Author Author TATIANA WEI Organization [facility] Address [address] [place] [address] Care Team Providers Care Family Life Educator Name Role Phone TATIANA WEI Unavailable PROBLEMS Type Condition ICD9-CM Code [id number] Code Onset Dates Condition Status SNOMED Code Problem Adjustment disorder with anxiety F43.22 Active 54260283 Problem Normal in second trimester Z34.92 Active 20672397 Problem Adjustment disorder with depressed mood F43.21 Active 203405885 Problem Normal in first trimester Z34.91 Active 74647825 Problem Bipolar 1 disorder, manic, mild F31.11 Active 50065021 ALLERGIES No Known Allergies SOCIAL HISTORY No smoking Hx information available PLAN OF CARE Activity Details Follow Up 1 Week Reason: VITAL SIGNS Height 63.75 in 2016-10-30 Weight 145.4 lbs 2016-10-30 Temperature 97.8 degrees Fahrenheit 2016-10-30 Heart Rate 88 bpm 2016-10-30 Respiratory Rate 20 2016-10-30 BMI 25.154 kg/m2 2016-10-30 Blood pressure systolic 118 mmHg 2016-10-30 Blood pressure diastolic 77 mmHg 2016-10-30 MEDICATIONS Medication Instructions Dosage Frequency Start Date End Date Duration Status Zoloft 50 MG Orally Once a day 1 tablet 24h May, 30 days Active Omeprazole 10 mg Orally Once a day 2 capsules 24h Sep, 30 day(s ) Active Plus/Iron 27-1 MG Orally Once a day 1 tablet 24h 24 May, 2016 30 days Active RESULTS Name Result Date Reference Range UA OB DIP (IN HOUSE) 2016-10-30 Glucose Negative Protein Negative PROCEDURES Procedure Date Ordered Related Diagnosis Body Site URINE-NO MICRO Oct 30, 2016 Office Visit, Est Pt., Level 3 Oct 30, 2016 IMMUNIZATIONS No Known Immunizations
--- OUTSIDE RECORDS SUMMARY | 2017-07-14 18:21 | XMS REPORT ---
Author Author ALISIA HOOKS [facility] Address [address] [place] [address] Care Team Providers Care Pointer Helper Name Role Phone ALISIA HOOKS Unavailable PROBLEMS Type Condition ICD9-CM Code [id number] Code Onset Dates Condition Status SNOMED Code Problem Adjustment disorder with anxiety F43.22 Active 24989416 Problem Normal in second trimester Z34.92 Active 95665736 Problem Adjustment disorder with depressed mood F43.21 Active 500399238 Problem Normal in first trimester Z34.91 Active 68326243 Problem Bipolar 1 disorder, manic, mild F31.11 Active 35725508 ALLERGIES No Known Allergies SOCIAL HISTORY No smoking Hx information available PLAN OF CARE Activity Details Follow Up 2 - 3 Weeks Reason:Adjustment disorder anxiety, bipolar VITAL SIGNS MEDICATIONS No Known Medications RESULTS No Results PROCEDURES Procedure Date Ordered Related Diagnosis Body Site Psychotherapy, patient &/family, 30 minutes, established patient Dec 11, 2015 IMMUNIZATIONS No Known Immunizations
--- OUTSIDE RECORDS SUMMARY | 2017-07-14 18:24 | XMS REPORT ---
Author Author TATIANA WEI [facility] Address [address] [place] [address] Care Team Providers Care Senior Clinical Data Analyst Name Role Phone TATIANA WEI Unavailable PROBLEMS Type Condition ICD9-CM Code [id number] Code Onset Dates Condition Status SNOMED Code Problem Adjustment disorder with anxiety F43.22 Active 32015004 Problem Normal in second trimester Z34.92 Active 73082607 Problem Adjustment disorder with depressed mood F43.21 Active 752635594 Problem Normal in first trimester Z34.91 Active 36672220 Problem Bipolar 1 disorder, manic, mild F31.11 Active 60292450 ALLERGIES No Known Allergies SOCIAL HISTORY No smoking Hx information available PLAN OF CARE VITAL SIGNS MEDICATIONS No Known Medications RESULTS No Results PROCEDURES No Known procedures IMMUNIZATIONS No Known Immunizations
--- OUTSIDE RECORDS SUMMARY | 2017-07-14 18:24 | XMS REPORT ---
Author Author KOLE LAMB [facility] Address [address] [place] [address] Care Team Providers Care Medical Biller Coder Name Role Phone KOLE LAMB Unavailable PROBLEMS Type Condition ICD9-CM Code MQR55-WU Code Onset Dates Condition Status SNOMED Code Problem Adjustment disorder with anxiety F43.22 Active 77119430 Problem Normal in second trimester Z34.92 Active 27285701 Problem Adjustment disorder with depressed mood F43.21 Active 280820174 Problem Normal in first trimester Z34.91 Active 39875188 Problem Bipolar 1 disorder, manic, mild F31.11 Active 91024844 ALLERGIES No Known Allergies SOCIAL HISTORY No smoking Hx information available PLAN OF CARE VITAL SIGNS MEDICATIONS No Known Medications RESULTS No Results PROCEDURES No Known procedures IMMUNIZATIONS No Known Immunizations
--- OUTSIDE RECORDS SUMMARY | 2017-07-14 18:25 | XMS REPORT ---
Author Author TATIANA WEI Organization [facility] Address [address] [place] [address] Care Team Providers Care Blacksmith Assistant Name Role Phone TATIANA WEI Unavailable PROBLEMS Type Condition ICD9-CM Code HMF90-MC Code Onset Dates Condition Status SNOMED Code Problem Adjustment disorder with anxiety F43.22 Active 69915480 Problem Normal in second trimester Z34.92 Active 23121424 Problem Adjustment disorder with depressed mood F43.21 Active 743978029 Problem Normal in first trimester Z34.91 Active 30566665 Problem Bipolar 1 disorder, manic, mild F31.11 Active 62597377 ALLERGIES Substance Reaction Event Type Date Status N.K.D.A. Unknown Non Drug Allergy Oct, Unknown SOCIAL HISTORY No smoking Hx information available PLAN OF CARE Activity Details Follow Up 1 Week Reason: VITAL SIGNS Height 63.75 in 2016-11-13 Weight 152 lbs 2016-11-13 Temperature 98 degrees Fahrenheit 2016-11-13 Heart Rate 88 bpm 2016-11-13 Respiratory Rate 18 2016-11-13 BMI 26.296 kg/m2 2016-11-13 Blood pressure systolic 126 mmHg 2016-11-13 Blood pressure diastolic 70 mmHg 2016-11-13 MEDICATIONS Medication Instructions Dosage Frequency Start Date End Date Duration Status Zoloft 50 MG Orally Once a day 1 tablet 24h 15 May, 2016 30 days Active Omeprazole 10 mg Orally Once a day 2 capsules 24h Sep, 30 day(s ) Active Plus/Iron 27-1 MG Orally Once a day 1 tablet 24h May, 30 days Active RESULTS Name Result Date Reference Range UA OB DIP (IN HOUSE) 2016-11-13 Glucose negative Protein negative CULTURE, GROUP B STREP (VAGINAL) 2016-11-13 Strep Gp B Culture Positive Negative PROCEDURES Procedure Date Ordered Related Diagnosis Body Site URINE-NO MICRO Nov 13, 2016 Office Visit, Est Pt., Level 3 Nov 13, 2016 LAB NOT BILLED BY [facility] Nov 13, 2016 IMMUNIZATIONS No Known Immunizations
[2017-07-14] MEDS ORDERED: CYCL10TA9 PO (18:53)
--- NOTE | 2017-07-14 18:53 | ED Back Pain ---
General Chief Complaint: Back Problems Stated Complaint: LOWER BACK PAIN Nursing Triage Note: pt reports she was trying to pop her back last night and hurt it. Pt reports r lower back pain. Nursing Sepsis Screen: No Definite Risk History of Present Illness Time Seen by Provider: 18:42 Initial Comments Patient presents to ER by private conveyance with her mother and child with a chief complaint that she was stretching her back last night and felt a popping sensation which she often does and that started having intense pain on the right side of her back whenever she moves her legs down. She's never had pain like this nor back problems before. She denies any surgeries. She does not have any dysuria, fevers, chills, rash, malaise, diarrhea. She says is worse when she lies down. She has tried ibuprofen one time but did not feel it helped much. She denies any cough or shortness of breath or pain on inspiration. She says it hurts whenever she presses down on the right side of her back or if she leans to the right side. Allergies and Home Medications Allergies Coded Allergies: No Known Drug Allergies (Unverified , 11/04/16) Home Medications Cyclobenzaprine HCl 10 Mg Tablet, 10 MG PO Q8H PRN for SPASMS, #15 Ref 0 Prescribed by: BRENDA KIRBY on 07/14/17 1853 Hydroxyzine Pamoate 25 Mg Capsule, 25 MG PO Q6H PRN for ANXIETY, #30 Ref 0 Prescribed by: BRENDA KIRBY on 06/17/17 0131 Constitutional: No chills, No diaphoresis Respiratory: No cough, No short of breath Cardiovascular: No chest pain, No palpitations, No syncope Gastrointestinal: No abdominal pain, No constipation, No diarrhea, No nausea, No vomiting Genitourinary: No discharge, No dysuria : No Musculoskeletal: see HPI, back pain, No joint pain, No joint swelling Skin: No pruritus, No rash Psychiatric/Neurological: Denies Headache, Denies Numbness, Denies Paresthesia Past Uvfsydu-Xnvwyf-Zmkars Hx Patient Social History Alcohol Use: Denies Use Recreational Drug Use: No Smoking Status: Former Smoker Type Used: Cigarettes Former Smoker, Quit: Jun 30, 2017 2nd Hand Smoke Exposure: No Recent Foreign Travel: No Contact w/Someone Who Travel: No Recent Infectious Disease Expo: No Recent Hopitalizations: No Physical Abuse: No Sexual Abuse: No Mistreated: No Fear: No Immunizations Up To Date Tetanus Booster (TDap): Unknown PED Vaccines UTD: No Date of Influenza Vaccine: Oct 04, 2016 Seasonal Allergies Seasonal Allergies: Yes Surgeries History of Surgeries: No Respiratory History of Respiratory Disorde: Yes (WINTER INDUCED ASTHMA) Respiratory Disorders: Asthma Currently Using CPAP: No Currently Using BIPAP: No Cardiovascular History of Cardiac Disorders: No Neurological History of Neurological Disord: No Reproductive System Hx Reproductive Disorders: No Sexually Transmitted Disease: Yes HIV/AIDS: No Female Reproductive Disorders: Denies Genitourinary History of Genitourinary Disor: No Genitourinary Disorders: UTI-Chronic Gastrointestinal History of Gastrointestinal Di: No Gastrointestinal Disorders: Gastroesophageal Reflux Musculoskeletal History of Musculoskeletal Dis: No Endocrine History of Endocrine Disorders: No HEENT History of HEENT Disorders: No Cancer History of Cancer: No Psychosocial History of Psychiatric Problem: Yes Behavioral Health Disorders: Anxiety, Depression Suicide Risk Score: 0 Integumentary History of Skin or Integumenta: No Blood Transfusions History of Blood Disorders: No Family Medical History Significant Family History: No Pertinent Family Hx Family Medial History: Family history: Asthma 03 MOTHER Family history: Diabetes mellitus (type 2 diabetes) 03 MOTHER History of - disorder (anxiety, Brother has heart murmur) 03 MOTHER Physical Exam Vital Signs Vital Sign - Last 12Hours 07/14/17 18:27 Temp 97.6 Pulse 87 Resp 18 B/P (MAP) 111/76 Pulse Ox 96 Capillary Refill : Less Than 3 Seconds General Appearance: WD/WN, Mild Distress HEENT: PERRL/EOMI, TMs Normal, Normal ENT Inspection, Pharynx Normal Neck: Full Range of Motion, Normal Inspection, Non Tender, Supple Cardiovascular: Regular Rate, Rhythm, No Edema, Normal Peripheral Pulses Respiratory: Chest Non Tender, Lungs Clear, Normal Breath Sounds Gastrointestinal: Normal Bowel Sounds, Non Tender, Soft Back: Normal Inspection, No Vertebral Tenderness, Muscle Spasm (right side lumbar) Extremity: Normal Capillary Refill, No Pedal Edema Neurologic/Psychiatric: Alert, Oriented x3 Skin: Normal Color, Warm/Dry Progress/Results/Core Measures Results/Orders Vital Signs/I&O Vital Sign - Last 12Hours 07/14/17 07/14/17 18:27 18:59 Temp 97.6 98.0 Pulse 87 70 Resp 18 16 B/P (MAP) 111/76 Pulse Ox 96 99 Blood Pressure Mean: 88 Departure Impression Impression: Primary Impression: Back strain Qualified Codes: S39.012A - Strain of muscle, fascia and tendon of lower back , initial encounter Disposition: 01 HOME, SELF-CARE Condition: Stable Departure-Patient Inst. Decision time for Depature: 18:51 Referrals: NO,LOCAL PHYSICIAN (PCP/Family) Primary Care Physician Patient Instructions: Lumbar Muscle Strain (DC) Add. Discharge Instructions: Please apply ice for 20 minutes every 4-6 hours as needed for the pain for the purpose first 3-4 days. You may also use heat as often as you like the pain. If you do not have ice or heat available than something like icy hot would be reasonable. He should use ibuprofen 800 mg every 8 hours [id number] for the next 2 weeks. If you have breakthrough pain then I suggest Tylenol thousand milligrams every 8 hours as needed. He may also use the Flexeril/ cyclobenzaprine 5-10 mg every 8 hours as needed for muscle spasm. The cyclobenzaprine we will make you drowsy. If you're not seeing some improvement in a few weeks you can follow-up with a primary care physician for referral to physical therapy or consider other evaluation and management. If you begin to have new or worsening symptoms such as fevers, nausea, numbness, falls, incontinence of bowel or bladder then you should return to the ER or to your primary care physician for further workup. All discharge instructions reviewed with patient and/or family. Voiced understanding. Scripts Cyclobenzaprine HCl (Cyclobenzaprine HCl) 10 Mg Tablet 10 MG PO Q8H Y for SPASMS, #15 TAB 0 Refills Prov: BRENDA KIRBY 07/14/17 BRENDA KIRBY Jul 14, 2017 18:53
[2017-07-14 18:59] VITALS: BP 125/71
== END 2017-07-14 18:59 | disposition home or self-care (01) ==
LOC: EDUNIT# 18:14 → ER 18:15
DX: S39.012A Strain of muscle, fascia and tendon of lower back, initial encounter (principal); J45.909 Unspecified asthma, uncomplicated; K21.9 Gastro-esophageal reflux disease without esophagitis; F41.9 Anxiety disorder, unspecified; F32.9 Major depressive disorder, single episode, unspecified; Z87.440 Personal history of urinary (tract) infections; Z87.891 Personal history of nicotine dependence; X50.0XXA Overexertion from strenuous movement or load, initial encounter
CPT/HCPCS: 99281

== ENCOUNTER 2017-09-14 15:06 | Emergency (ER) | payer MEDICAID ==
[~2017-09-14] VITALS: Ht 160 cm; Wt 50.8 kg
[~2017-09-14 15:06] MED LIST changes: +CYCL10TA9 PO
[2017-09-14] MEDS ORDERED: hydrOXYzine (VISTARIL) 25 MG CAP ONE (15:18)
[2017-09-14] MEDS ORDERED: HYDR25CA PO (15:28)
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
[2017-09-14] MEDS ORDERED: hydrOXYzine (VISTARIL) 25 MG CAP PO ONE (15:30)
[2017-09-14 15:34] VITALS: BP 110/75
== END 2017-09-14 15:34 | disposition home or self-care (01) ==
LOC: EDUNIT# 15:06 → ER 15:07
DX: F41.9 Anxiety disorder, unspecified (principal); J45.909 Unspecified asthma, uncomplicated; K21.9 Gastro-esophageal reflux disease without esophagitis; Z87.891 Personal history of nicotine dependence
CPT/HCPCS: 99283

== ENCOUNTER 2017-09-26 17:30 | Emergency (ER) | payer MEDICAID ==
[~2017-09-26] VITALS: Ht 160 cm; Wt 51.0 kg
--- NOTE | 2017-09-26 18:03 | ED GU-Female ---
General Chief Complaint: -Female Stated Complaint: PELVIC PAIN Nursing Triage Note: C/O pelvic pain times 20 min. Urine nixon colored. no fever or nausea Nursing Sepsis Screen: No Definite Risk Source: patient Exam Limitations: no limitations History of Present Illness Time seen by provider: 18:03 Initial Comments 22-year-old female patient presented to the emergency department with complaints of lower abdominal pain and hematuria beginning 20 minutes prior to arrival. Does have a history of urinary tract infections and gross hematuria. Denies fever, nausea, vomiting, chills, diarrhea. Denies vaginal discharge. Patient states symptoms feel just like previous UTI's/hematuria. Patient denies a history kidney stones. Denies being on her period at this time. Timing/Duration: just prior to arrival, getting worse Severity/Quality: aching, burning Location: suprapubic Radiation: none Activities at Onset: none Prior Genitourinary Problems: similar symptoms Sexual [place] History: less than 2 months ago, single partner Modifying Factors: Worsens With Urinating Allergies and Home Medications Allergies Coded Allergies: No Known Drug Allergies (Unverified , 09/26/17) Home Medications Cephalexin 500 Mg Capsule, 500 MG PO TID, #21 Ref 0 Prescribed by: JAMEY KRAFT on 09/26/17 1855 Hydroxyzine Pamoate 25 Mg Capsule, 25 MG PO Q6H PRN for ANXIETY, #30 Ref 0 Prescribed by: BRENDA KIRBY on 06/17/17 0131 Phenazopyridine HCl 100 Mg Tablet, 1-2 TAB PO TID PRN for pain, #14 Ref 1 Prescribed by: JAMEY KRAFT on 09/26/17 1855 Constitutional: No chills, No dizziness, No fever, No malaise Respiratory: no symptoms reported Cardiovascular: no symptoms reported Gastrointestinal: see HPI, abdominal pain (suprapubic abdominal pain), No constipation, No diarrhea, No loss of appetite, No melena, No nausea, No vomiting Genitourinary: see HPI, denies discharge, dysuria, frequency, denies flank pain , hematuria, pain : No Musculoskeletal: No back pain Skin: no symptoms reported Psychiatric/Neurological: No Symptoms Reported All Other Systemes Reviewed Negative Unless Noted: Yes (Negative excepted noted.) Past Tqzclnm-Tlcmcv-Mmsmaj Hx Patient Social History Alcohol Use: Denies Use Recreational Drug Use: No Smoking Status: Current Everyday Smoker Type Used: Cigarettes Former Smoker, Quit: Jun 30, 2017 2nd Hand Smoke Exposure: No Recent Foreign Travel: No Contact w/Someone Who Travel: No Recent Infectious Disease Expo: No Recent Hopitalizations: No Physical Abuse: No Sexual Abuse: No Mistreated: No Fear: No Immunizations Up To Date Tetanus Booster (TDap): Unknown PED Vaccines UTD: No Date of Influenza Vaccine: Oct 04, 2016 Seasonal Allergies Seasonal Allergies: Yes Surgeries History of Surgeries: No Respiratory History of Respiratory Disorde: Yes (WINTER INDUCED ASTHMA) Respiratory Disorders: Asthma Currently Using CPAP: No Currently Using BIPAP: No Cardiovascular History of Cardiac Disorders: No Neurological History of Neurological Disord: No Reproductive System Hx Reproductive Disorders: No Sexually Transmitted Disease: Yes HIV/AIDS: No Female Reproductive Disorders: Denies Genitourinary History of Genitourinary Disor: No Genitourinary Disorders: UTI-Chronic Gastrointestinal History of Gastrointestinal Di: No Gastrointestinal Disorders: Gastroesophageal Reflux Musculoskeletal History of Musculoskeletal Dis: No Endocrine History of Endocrine Disorders: No HEENT History of HEENT Disorders: No Cancer History of Cancer: No Psychosocial History of Psychiatric Problem: Yes Behavioral Health Disorders: Anxiety Suicide Risk Score: 0 Integumentary History of Skin or Integumenta: No Blood Transfusions History of Blood Disorders: No Reviewed Nursing Assessment Reviewed/Agree w Nursing PMH: Yes Family Medical History Significant Family History: No Pertinent Family Hx Family Medial History: Family history: Asthma 03 MOTHER Family history: Diabetes mellitus (type 2 diabetes) 03 MOTHER History of - disorder (anxiety, Brother has heart murmur) 03 MOTHER Physical Exam Vital Signs Vital Sign - Last 12Hours 09/26/17 17:35 Temp 97.6 Pulse 81 Resp 18 B/P (MAP) 132/80 (97) Pulse Ox 99 Capillary Refill : Less Than 3 Seconds General Appearance: WD/WN, no apparent distress HEENT: PERRL/EOMI, pharynx normal Neck: supple, normal inspection Cardiovascular: normal peripheral pulses, regular rate, rhythm, no edema, no murmur Respiratory: lungs clear, normal breath sounds, no respiratory distress, no accessory muscle use Gastrointestinal: normal bowel sounds, soft, no organomegaly, No distended, No guarding, No rebound, tenderness (mild suprapubic tenderness) Back: normal inspection, no CVA tenderness Extremities: no pedal edema, normal capillary refill Neurologic/Psychiatric: alert, normal mood/affect, oriented x 3 Skin: normal color, warm/dry Progress/Results/Core Measures Suspected Sepsis Recent Fever Within 48 Hours: No Infection Criteria Present: Suspected New Infection New/Unexplained Altered Menta: No Sepsis Screen: No Definite Risk Sepsis Diagnosis: SIRS Temperature:97.6 Pulse: 81 Respiratory Rate: 18 Blood Pressure 132 /80 Mean: 97 Results/Orders Lab Results Laboratory Tests Test 09/26/17 17:35 Range/Units Urine Color RED H Urine Clarity BLOODY H Urine pH 5 5-9 Urine Specific [place] 1.020 1.016-1.022 Urine Protein 3+ H NEGATIVE Urine Glucose (UA) NEGATIVE NEGATIVE Urine Ketones 1+ H NEGATIVE Urine Nitrite NEGATIVE NEGATIVE Urine Bilirubin NEGATIVE NEGATIVE Urine Urobilinogen NORMAL NORMAL MG/DL Urine Leukocyte Esterase 3+ H NEGATIVE Urine RBC (Auto) 5+ H NEGATIVE Urine RBC TNTC H /HPF Urine WBC 5-10 H /HPF Urine Crystals NONE /LPF Urine Bacteria MODERATE H /HPF Urine Casts NONE /LPF Urine Mucus NEGATIVE /LPF Urine Culture Indicated YES My Orders Orders - JAMEY KRAFT Ua Culture If Indicated (09/26/17 17:46) Urine Culture (09/26/17 17:35) Ceftriaxone Injection (Rocephin Injectio (09/26/17 19:00) Phenazopyridine Tablet (Pyridium Tablet) (09/26/17 18:47) Ceftriaxone Injection (Rocephin Injectio (09/26/17 19:00) Lidocaine 1% Injection (Xylocaine 1% Inj (09/26/17 19:00) Lidocaine 1% (Xylocaine 1%) (09/26/17 18:56) Medications Given in ED Current Medications Medications Dose Ordered Sig/Adelita Route Start Time Stop Time Status Last Admin Dose Admin Ceftriaxone Sodium 1,000 mg ONCE ONCE IM 09/26/17 19:00 09/26/17 19:01 DC 09/26/17 19:00 1,000 MG Lidocaine HCl 2.1 ml ONCE ONCE INJ 09/26/17 19:00 09/26/17 19:01 DC 09/26/17 19:00 2.1 ML Vital Signs/I&O Vital Sign - Last 12Hours 09/26/17 09/26/17 17:35 19:07 Temp 97.6 98.3 Pulse 81 71 Resp 18 18 B/P (MAP) 132/80 (97) Pulse Ox 99 99 Capillary Refill : Less Than 3 Seconds Blood Pressure Mean: 97 Departure Impression Impression: Primary Impression: Urinary tract infection Qualified Codes: N30.01 - Acute cystitis with hematuria Disposition: HOME, SELF-CARE Condition: Improved Departure-Patient Inst. Decision time for Depature: 18:54 Referrals: NO,LOCAL PHYSICIAN (PCP/Family) Primary Care Physician Patient Instructions: Urinary Tract Infection, Adult (DC) Add. Discharge Instructions: All discharge instructions reviewed with patient and/or family. Voiced understanding. Medications as instructed. Tylenol Extra Strength over-the- counter as directed for pain. Ibuprofen 800 mg by mouth every 8 hours as needed for pain. Drink plenty of fluids. Follow-up with your primary care provider for recheck as an outpatient in 10 days for repeat urinalysis. Return to the emergency department for worsened symptoms or any other concerns. Scripts Phenazopyridine HCl (Pyridium) 100 Mg Tablet 1-2 TAB PO TID Y for pain, #14 TAB 1 Refill Prov: JAMEY KRAFT 09/26/17 Cephalexin (Cephalexin) 500 Mg Capsule 500 MG PO TID, #21 CAP 0 Refills Prov: JAMEY KRAFT 09/26/17 JAMEY KRAFT Sep 26, 2017 18:03
[2017-09-26 18:10] LABS: BILIRUBIN,URINE NEGATIVE (NEGATIVE); KETONES,URINE 1+ (NEGATIVE); LEUKOCYTE ESTERASE ,URINE 3+ (NEGATIVE); NITRITE,URINE NEGATIVE (NEGATIVE); PH,URINE 5 (5-9); PROTEIN,URINE 3+ (NEGATIVE); UROBILINOGEN,URINE NORMAL (NORMAL)
[2017-09-26] MEDS ORDERED: PHENAZOPYRIDINE 100 MG (PYRIDIUM) TABLET PO STA (18:47)
[2017-09-26] MEDS ORDERED: PHEN-639 PO (18:55)
[2017-09-26] MEDS ORDERED: CEPH500C PO (18:55)
[2017-09-26] MEDS ORDERED: LIDOCAINE 1% INJ 50 ML (XYLOCAINE) VIAL ONE (18:56)
[2017-09-26] MEDS ORDERED: cefTRIAXone 1 GM (ROCEPHIN) VIAL IM ONE (19:00)
[2017-09-26] MEDS ORDERED: LIDOCAINE 1% INJ 20 ML (XYLOCAINE) VIAL INJ ONE (19:00)
[2017-09-26] MEDS ORDERED: cefTRIAXone INJECTION 1,000 MG in NS (IVPB) 50 ML IV ONE (19:00)
[2017-09-26 19:07] VITALS: BP 114/70
== END 2017-09-26 19:07 | disposition home or self-care (01) ==
LOC: EDUNIT# 17:30 → ER 17:31
DX: N39.0 Urinary tract infection, site not specified (principal); M19.90 Unspecified osteoarthritis, unspecified site; J45.909 Unspecified asthma, uncomplicated; F41.9 Anxiety disorder, unspecified; K21.9 Gastro-esophageal reflux disease without esophagitis; F17.210 Nicotine dependence, cigarettes, uncomplicated; Z87.440 Personal history of urinary (tract) infections
CPT/HCPCS: 81000; 87088; 99283

== ENCOUNTER 2017-10-23 17:39 | Emergency (ER) | payer MEDICAID ==
[~2017-10-23] VITALS: Ht 160 cm; Wt 50.8 kg
[2017-10-23] MEDS ORDERED: PENI500T PO (17:42)
[2017-10-23] MEDS ORDERED: NAPR-1071 PO (17:42)
--- NOTE | 2017-10-23 17:42 | ED EENT ---
History of Present Illness General Stated Complaint: DENTAL PAIN Source: patient Exam Limitations: no limitations History of Present Illness Time seen by provider: 17:41 Initial Comments Pain overlying the left lower wisdom tooth since yesterday Timing/Duration: abrupt Severity: moderate Location: dental Associated Symptoms: denies symptoms Allergies and Home Medications Allergies Coded Allergies: No Known Drug Allergies (Unverified , 09/26/17) Home Medications Cephalexin 500 Mg Capsule, 500 MG PO TID, #21 Ref 0 Prescribed by: JAMEY KRAFT on 09/26/17 1855 Hydroxyzine Pamoate 25 Mg Capsule, 25 MG PO Q6H PRN for ANXIETY, #30 Ref 0 Prescribed by: BRENDA KIRBY on 06/17/17 0131 Naproxen 500 Mg Tablet, 500 MG PO BID PRN for PAIN-MODERATE TO SEVERE, #30 Prescribed by: GLO BLOOM on 10/23/17 1742 Penicillin V Potassium 500 Mg Tablet, 500 MG PO QID, #28 Prescribed by: GLO BLOOM on 10/23/17 1742 Phenazopyridine HCl 100 Mg Tablet, 1-2 TAB PO TID PRN for pain, #14 Ref 1 Prescribed by: JAMEY KRAFT on 09/26/17 1855 Review of Systems Constitutional: see HPI Eyes: No Symptoms Reported Ears: No Symptoms Reported Nose: no symptoms reported Mouth: see HPI Throat: no symptoms reported Respiratory: no symptoms reported Cardiovascular: no symptoms reported Musculoskeletal: no symptoms reported Past Gufnfve-Jwqbyn-Zkubnl Hx Patient Social History Type Used: Cigarettes Former Smoker, Quit: Jun 30, 2017 2nd Hand Smoke Exposure: No Recent Foreign Travel: No Contact w/Someone Who Travel: No Recent Hopitalizations: No Immunizations Up To Date Tetanus Booster (TDap): Unknown PED Vaccines UTD: No Date of Influenza Vaccine: Oct 04, 2016 Seasonal Allergies Seasonal Allergies: Yes Surgeries History of Surgeries: No Respiratory History of Respiratory Disorde: Yes (WINTER INDUCED ASTHMA) Respiratory Disorders: Asthma Currently Using CPAP: No Currently Using BIPAP: No Cardiovascular History of Cardiac Disorders: No Neurological History of Neurological Disord: No Reproductive System Hx Reproductive Disorders: No Sexually Transmitted Disease: Yes HIV/AIDS: No Female Reproductive Disorders: Denies Genitourinary History of Genitourinary Disor: No Genitourinary Disorders: UTI-Chronic Gastrointestinal History of Gastrointestinal Di: No Gastrointestinal Disorders: Gastroesophageal Reflux Musculoskeletal History of Musculoskeletal Dis: No Endocrine History of Endocrine Disorders: No HEENT History of HEENT Disorders: No Cancer History of Cancer: No Psychosocial History of Psychiatric Problem: Yes Behavioral Health Disorders: Anxiety Integumentary History of Skin or Integumenta: No Blood Transfusions History of Blood Disorders: No Family Medical History Significant Family History: No Pertinent Family Hx Family Medial History: Family history: Asthma 03 MOTHER Family history: Diabetes mellitus (type 2 diabetes) 03 MOTHER History of - disorder (anxiety, Brother has heart murmur) 03 MOTHER Physical Exam General Appearance: WD/WN, no apparent distress Eyes: bilateral eye normal inspection, bilateral eye PERRL, bilateral eye EOMI Ears: bilateral ear auricle normal, bilateral ear canal normal, bilateral ear TM normal Mouth/Throat: normal mouth inspection, pharynx normal, No mandibular swelling, No maxillary swelling, No trismus Neck: non-tender, full range of motion, No lymphadenopathy (R), No lymphadenopathy (L) Cardiovascular: regular rate, rhythm, no murmur Respiratory: normal breath sounds, no respiratory distress, no accessory muscle use Gastrointestinal: normal bowel sounds, non tender Neurologic/Psychiatric: alert, normal mood/affect, oriented x 3 Departure Impression Impression: Primary Impression: Pain, dental Additional Impression: Acute pericoronitis Disposition: 01 HOME, SELF-CARE Condition: Stable Departure-Patient Inst. Decision time for Depature: 17:41 Referrals: NO,LOCAL PHYSICIAN (PCP/Family) Primary Care Physician Patient Instructions: Dental Pain Add. Discharge Instructions: 1. Use ngiy-[id number] Orajel to help with the pain 2. Take the antibiotics as directed 3. Call your dentist tomorrow to make an appointment to be seen. Scripts Naproxen (Naprosyn) 500 Mg Tablet 500 MG PO BID Y for PAIN-MODERATE TO SEVERE, #30 TAB Prov: GLO BLOOM BE[employer] ENGINEER HELPER 10/23/17 Penicillin V Potassium (Penicillin V Potassium) 500 Mg Tablet 500 MG PO QID, #28 TAB Prov: GLO BLOOM BE[employer] ENG[employer] HELPER 10/23/17 GLO BLOOM BE[employer] ENGINEER HELPER Oct 23, 2017 17:42
[2017-10-23 17:54] VITALS: BP 109/75
--- OUTSIDE RECORDS SUMMARY | 2017-10-24 23:28 | XMS REPORT | Continuity of Care Document ---
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 JAMEY ROMAN Ot M19.90 UNSPECIFIED OSTEOARTHRITIS, UNSPECIFIED 09/26/2017 JAMEY ROMAN Ot N39.0 URINARY TRACT INFECTION, SITE NOT SPECIF 09/26/2017 JAMEY ROMAN Ot R10.2 PELVIC AND PERINEAL PAIN 09/26/2017 JAMEY ROMAN Ot Z87.440 PERSONAL HISTORY OF URINARY (TRACT) INFE Procedures Code Description [place] [address] OB - EARLY <14 WEEKS 06/23/2013 17286 URINE TEST (IN- HOUSE) 06/23/2013 01251 UA W/ CULTURE IF INDICATED 06/23/2013 72.71 VACUUM EXT DEL W EPISIOT 01/24/2014 07527 PSYCH DIAGNOSTIC EVALUATION 01/28/2014 19513 PSYTX PT&/FAMILY 45 MINUTES 02/22/2014 29615 PSYCHO TESTING 1 HR W COMP 02/22/2014 70237 PSYTX PT&/FAMILY 30 MINUTES 04/01/2014 01375 PSYTX PT&/FAMILY 45 MINUTES 08/23/2014 19858 PSYTX PT&/FAMILY 45 MINUTES 08/29/2014 00325 PSYTX PT&/FAMILY 45 MINUTES 10/14/2014 91839 PSYTX PT&/FAMILY 45 MINUTES 10/21/2014 [id number] DIVISION OF FEMALE PERINEUM, EXTERNAL AP 11/28/2016 [id number] DRAINAGE OF AMNIOTIC FL, THERAP FROM POC 11/28/2016 [id number] DELIVERY OF PRODUCTS OF CONCEPTION, EXTE 11/28/2016 Results Test Result Range Urine drug screening test - 06/06/16 21:20 Urine acetaminophen detection by screening method NEGATIVE NEGATIVE Urine phencyclidine detection by screening method NEGATIVE NEGATIVE Urine benzodiazepines detection by screening method NEGATIVE NEGATIVE Urine cocaine detection NEGATIVE NEGATIVE Urine amphetamines detection by screening method NEGATIVE NEGATIVE Urine methamphetamine detection by screening method NEGATIVE NEGATIVE Urine cannabinoids detection by screening method NEGATIVE NEGATIVE Urine opiates detection by screening method NEGATIVE NEGATIVE Urine barbiturates detection NEGATIVE NEGATIVE Screening urine tricyclic antidepressants detection NEGATIVE NEGATIVE Urine methadone detection by screening method NEGATIVE NEGATIVE Complete blood count (CBC) with automated white blood cell (WBC) differential - 06/06/16 21:29 Blood leukocytes automated count (number/volume) 10.9 10*3/uL 4.3-11.0 Blood erythrocytes automated count (number/volume) 4.75 10*6/uL 4.35-5.85 Venous blood hemoglobin measurement (mass/volume) 13.8 g/dL 11.5-16.0 Blood hematocrit (volume fraction) 39 % 35-52 Automated erythrocyte mean corpuscular volume 83 [foz_us] 80-99 Automated erythrocyte mean corpuscular hemoglobin (mass per erythrocyte) 29 pg 25-34 Automated erythrocyte mean corpuscular hemoglobin concentration measurement ( mass/volume) 35 g/dL 32-36 Automated erythrocyte distribution width ratio 13.3 % 10.0-14.5 Automated blood platelet count (count/volume) 247 10*3/uL 130-400 Automated blood platelet mean volume measurement 10.5 [foz_us] 7.4-10.4 Automated blood neutrophils/100 leukocytes 68 % 42-75 Automated blood lymphocytes/100 leukocytes 22 % 12-44 Blood monocytes/100 leukocytes 8 % 0-12 Automated blood eosinophils/100 leukocytes 2 % 0-10 Automated blood basophils/100 leukocytes 0 % 0-10 Blood neutrophils automated count (number/volume) 7.4 10*3 1.8-7.8 Blood lymphocytes automated count (number/volume) 2.4 10*3 1.0-4.0 Blood monocytes automated count (number/volume) 0.8 10*3 0.0-1.0 Automated eosinophil count 0.3 10*3/uL 0.0-0.3 Automated blood basophil count (count/volume) 0.0 10*3/uL 0.0-0.1 Complete urinalysis with reflex to culture - 06/06/16 21:29 Urine color determination YELLOW NRG Urine clarity determination CLEAR NRG Urine pH measurement by test strip 6.5 5-9 Specific gravity of urine by test strip 1.020 1.016- 1.022 Urine protein assay by test strip, semi-quantitative NEGATIVE NEGATIVE Urine glucose detection by automated test strip NEGATIVE NEGATIVE Erythrocytes detection in urine sediment by light microscopy NEGATIVE NEGATIVE Urine ketones detection by automated test strip NEGATIVE NEGATIVE Urine nitrite detection by test strip NEGATIVE NEGATIVE Urine total bilirubin detection by test strip NEGATIVE NEGATIVE Urine urobilinogen measurement by automated test strip (mass/volume) NORMAL NORMAL Urine leukocyte esterase detection by dipstick 2+ NEGATIVE Automated urine sediment erythrocyte count by microscopy (number/high power field) [HPF] NRG Automated urine sediment leukocyte count by microscopy (number/high power field ) [HPF] NRG Bacteria detection in urine sediment by light microscopy LARGE NRG Squamous epithelial cells detection in urine sediment by light microscopy 10-25 NRG Crystals detection in urine sediment by light microscopy NONE NRG Casts detection in urine sediment by light microscopy NONE NRG Mucus detection in urine sediment by light microscopy NEGATIVE NRG Complete urinalysis with reflex to culture YES NRG Comprehensive metabolic panel - 06/06/16 21:29 Serum or plasma sodium measurement (moles/volume) 136 mmol/L 135-145 Serum or plasma potassium measurement (moles/volume) 3.7 mmol/L 3.6-5.0 Serum or plasma chloride measurement (moles/volume) 106 mmol/L 98-107 Carbon dioxide 18 mmol/L 21-32 Serum or plasma anion gap determination (moles/volume) 12 mmol/L 5-14 Serum or plasma urea nitrogen measurement (mass/volume) 9 mg/dL 7-18 Serum or plasma creatinine measurement (mass/volume) 0.68 mg/dL 0.60-1.30 Serum or plasma urea nitrogen/creatinine mass ratio 13 NRG Serum or plasma creatinine measurement with calculation of estimated glomerular filtration rate > NRG Serum or plasma glucose measurement (mass/volume) 87 mg/dL 70-105 Serum or plasma calcium measurement (mass/volume) 9.5 mg/dL 8.5-10.1 Serum or plasma total bilirubin measurement (mass/volume) 0.5 mg/dL 0.1-1.0 Serum or plasma alkaline phosphatase measurement (enzymatic activity/volume) 40 U/L 40-136 Serum or plasma aspartate aminotransferase measurement (enzymatic activity/ volume) 11 U/L 5-34 Serum or plasma alanine aminotransferase measurement (enzymatic activity/volume ) 10 U/L 0-55 Serum or plasma protein measurement (mass/volume) 7.0 g/dL 6.4-8.2 Serum or plasma albumin measurement (mass/volume) 4.1 g/dL 3.2-4.5 Bacterial urine culture - 06/06/16 21:29 URINE CULTURE RESULTS >100,000/ML NRG Complete urinalysis with reflex to culture - 06/12/16 01:02 Urine color determination YELLOW NRG Urine clarity determination VERY CLOUDY NRG Urine pH measurement by test strip 5 5-9 Specific gravity of urine by test strip 1.025 1.016- 1.022 Urine protein assay by test strip, semi-quantitative NEGATIVE NEGATIVE Urine glucose detection by automated test strip NEGATIVE NEGATIVE Erythrocytes detection in urine sediment by light microscopy 4+ NEGATIVE Urine ketones detection by automated test strip NEGATIVE NEGATIVE Urine nitrite detection by test strip NEGATIVE NEGATIVE Urine total bilirubin detection by test strip NEGATIVE NEGATIVE Urine urobilinogen measurement by automated test strip (mass/volume) NORMAL NORMAL Urine leukocyte esterase detection by dipstick 2+ NEGATIVE Automated urine sediment erythrocyte count by microscopy (number/high power field) [HPF] NRG Automated urine sediment leukocyte count by microscopy (number/high power field ) [HPF] NRG Bacteria detection in urine sediment by light microscopy FEW NRG Squamous epithelial cells detection in urine sediment by light microscopy 10-25 NRG Crystals detection in urine sediment by light microscopy NONE NRG Casts detection in urine sediment by light microscopy NONE NRG Mucus detection in urine sediment by light microscopy SMALL NRG Complete urinalysis with reflex to culture YES NRG Bacterial urine culture - 06/12/16 01:02 URINE CULTURE RESULTS SUGGEST RECOLLECTION NRG Complete blood count (CBC) with automated white blood cell (WBC) differential - 06/13/16 00:23 Blood leukocytes automated count (number/volume) 9.4 10*3/uL 4.3-11.0 Blood erythrocytes automated count (number/volume) 4.42 10*6/uL 4.35-5.85 Venous blood hemoglobin measurement (mass/volume) 12.7 g/dL 11.5-16.0 Blood hematocrit (volume fraction) 37 % 35-52 Automated erythrocyte mean corpuscular volume 83 [foz_us] 80-99 Automated erythrocyte mean corpuscular hemoglobin (mass per erythrocyte) 29 pg 25-34 Automated erythrocyte mean corpuscular hemoglobin concentration measurement ( mass/volume) 35 g/dL 32-36 Automated erythrocyte distribution width ratio 13.5 % 10.0-14.5 Automated blood platelet count (count/volume) 257 10*3/uL 130-400 Automated blood platelet mean volume measurement 10.4 [foz_us] 7.4-10.4 Automated blood neutrophils/100 leukocytes 65 % 42-75 Automated blood lymphocytes/100 leukocytes 24 % 12-44 Blood monocytes/100 leukocytes 9 % 0-12 Automated blood eosinophils/100 leukocytes 2 % 0-10 Automated blood basophils/100 leukocytes 0 % 0-10 Blood neutrophils automated count (number/volume) 6.1 10*3 1.8-7.8 Blood lymphocytes automated count (number/volume) 2.2 10*3 1.0-4.0 Blood monocytes automated count (number/volume) 0.9 10*3 0.0-1.0 Automated eosinophil count 0.2 10*3/uL 0.0-0.3 Automated blood basophil count (count/volume) 0.0 10*3/uL 0.0-0.1 Whole blood basic metabolic panel - 06/13/16 00:23 Serum or plasma sodium measurement (moles/volume) 138 mmol/L 135-145 Serum or plasma potassium measurement (moles/volume) 3.7 mmol/L 3.6-5.0 Serum or plasma chloride measurement (moles/volume) 109 mmol/L 98-107 Carbon dioxide 17 mmol/L 21-32 Serum or plasma anion gap determination (moles/volume) 12 mmol/L 5-14 Serum or plasma urea nitrogen measurement (mass/volume) 11 mg/dL 7-18 Serum or plasma creatinine measurement (mass/volume) 0.68 mg/dL 0.60-1.30 Serum or plasma urea nitrogen/creatinine mass ratio 16 NRG Serum or plasma creatinine measurement with calculation of estimated glomerular filtration rate > NRG Serum or plasma glucose measurement (mass/volume) 83 mg/dL 70-105 Serum or plasma calcium measurement (mass/volume) 9.5 mg/dL 8.5-10.1 Serum or plasma ethanol measurement (mass/volume) - 06/13/16 00:23 Serum or plasma ethanol measurement (mass/volume) < mg/dL <10 Complete urinalysis with reflex to culture - 06/13/16 00:40 Urine color determination YELLOW NRG Urine clarity determination SLIGHTLY CLOUDY NRG Urine pH measurement by test strip 5 5-9 Specific gravity of urine by test strip 1.025 1.016- 1.022 Urine protein assay by test strip, semi-quantitative 1+ NEGATIVE Urine glucose detection by automated test strip NEGATIVE NEGATIVE Erythrocytes detection in urine sediment by light microscopy 5+ NEGATIVE Urine ketones detection by automated test strip NEGATIVE NEGATIVE Urine nitrite detection by test strip NEGATIVE NEGATIVE Urine total bilirubin detection by test strip NEGATIVE NEGATIVE Urine urobilinogen measurement by automated test strip (mass/volume) NORMAL NORMAL Urine leukocyte esterase detection by dipstick 3+ NEGATIVE Automated urine sediment erythrocyte count by microscopy (number/high power field) [HPF] NRG Automated urine sediment leukocyte count by microscopy (number/high power field ) [HPF] NRG Bacteria detection in urine sediment by light microscopy FEW NRG Squamous epithelial cells detection in urine sediment by light microscopy 10-25 NRG Crystals detection in urine sediment by light microscopy NONE NRG Casts detection in urine sediment by light microscopy NONE NRG Mucus detection in urine sediment by light microscopy NEGATIVE NRG Complete urinalysis with reflex to culture YES NRG Urine drug screening test - 06/13/16 00:40 Urine acetaminophen detection by screening method NEGATIVE NEGATIVE Urine phencyclidine detection by screening method NEGATIVE NEGATIVE Urine benzodiazepines detection by screening method NEGATIVE NEGATIVE Urine cocaine detection NEGATIVE NEGATIVE Urine amphetamines detection by screening method NEGATIVE NEGATIVE Urine methamphetamine detection by screening method NEGATIVE NEGATIVE Urine cannabinoids detection by screening method NEGATIVE NEGATIVE Urine opiates detection by screening method NEGATIVE NEGATIVE Urine barbiturates detection NEGATIVE NEGATIVE Screening urine tricyclic antidepressants detection NEGATIVE NEGATIVE Urine methadone detection by screening method NEGATIVE NEGATIVE Bacterial urine culture - 06/13/16 00:40 Bacterial urine culture [id number] NRG COLONY COUNT <10,000 NRG FTX;REPORTABLE NO FURTHER STUDIES UNLESS REQUESTED NRG URINE CULTURE RESULTS PLUS NRG Complete blood count (CBC) with automated white blood cell (WBC) differential - 07/01/16 22:37 Blood leukocytes automated count (number/volume) 11.5 10*3/uL 4.3-11.0 Blood erythrocytes automated count (number/volume) 4.38 10*6/uL 4.35-5.85 Venous blood hemoglobin measurement (mass/volume) 12.9 g/dL 11.5-16.0 Blood hematocrit (volume fraction) 37 % 35-52 Automated erythrocyte mean corpuscular volume 84 [foz_us] 80-99 Automated erythrocyte mean corpuscular hemoglobin (mass per erythrocyte) 30 pg 25-34 Automated erythrocyte mean corpuscular hemoglobin concentration measurement ( mass/volume) 35 g/dL 32-36 Automated erythrocyte distribution width ratio 13.7 % 10.0-14.5 Automated blood platelet count (count/volume) 259 10*3/uL 130-400 Automated blood platelet mean volume measurement 10.9 [foz_us] 7.4-10.4 Automated blood neutrophils/100 leukocytes 72 % 42-75 Automated blood lymphocytes/100 leukocytes 17 % 12-44 Blood monocytes/100 leukocytes 9 % 0-12 Automated blood eosinophils/100 leukocytes 2 % 0-10 Automated blood basophils/100 leukocytes 0 % 0-10 Blood neutrophils automated count (number/volume) 8.3 10*3 1.8-7.8 Blood lymphocytes automated count (number/volume) 2.0 10*3 1.0-4.0 Blood monocytes automated count (number/volume) 1.0 10*3 0.0-1.0 Automated eosinophil count 0.2 10*3/uL 0.0-0.3 Automated blood basophil count (count/volume) 0.0 10*3/uL 0.0-0.1 Complete urinalysis with reflex to culture - 07/01/16 22:37 Urine color determination YELLOW NRG Urine clarity determination VERY CLOUDY NRG Urine pH measurement by test strip 7 5-9 Specific gravity of urine by test strip 1.010 1.016- 1.022 Urine protein assay by test strip, semi-quantitative NEGATIVE NEGATIVE Urine glucose detection by automated test strip NEGATIVE NEGATIVE Erythrocytes detection in urine sediment by light microscopy 1+ NEGATIVE Urine ketones detection by automated test strip NEGATIVE NEGATIVE Urine nitrite detection by test strip NEGATIVE NEGATIVE Urine total bilirubin detection by test strip NEGATIVE NEGATIVE Urine urobilinogen measurement by automated test strip (mass/volume) NORMAL NORMAL Urine leukocyte esterase detection by dipstick 3+ NEGATIVE Automated urine sediment erythrocyte count by microscopy (number/high power field) [HPF] NRG Automated urine sediment leukocyte count by microscopy (number/high power field ) [HPF] NRG Bacteria detection in urine sediment by light microscopy LARGE NRG Squamous epithelial cells detection in urine sediment by light microscopy TNTC NRG Crystals detection in urine sediment by light microscopy PRESENT NRG Casts detection in urine sediment by light microscopy NONE NRG Mucus detection in urine sediment by light microscopy NEGATIVE NRG Complete urinalysis with reflex to culture NO NRG Amorphous sediment detection in urine sediment by light microscopy LARGE SHU PHOSPHATE NRG Comprehensive metabolic panel - 07/01/16 22:37 Serum or plasma sodium measurement (moles/volume) 138 mmol/L 135-145 Serum or plasma potassium measurement (moles/volume) 4.0 mmol/L 3.6-5.0 Serum or plasma chloride measurement (moles/volume) 108 mmol/L 98-107 Carbon dioxide 18 mmol/L 21-32 Serum or plasma anion gap determination (moles/volume) 12 mmol/L 5-14 Serum or plasma urea nitrogen measurement (mass/volume) 8 mg/dL 7-18 Serum or plasma creatinine measurement (mass/volume) 0.67 mg/dL 0.60-1.30 Serum or plasma urea nitrogen/creatinine mass ratio 12 NRG Serum or plasma creatinine measurement with calculation of estimated glomerular filtration rate > NRG Serum or plasma glucose measurement (mass/volume) 77 mg/dL 70-105 Serum or plasma calcium measurement (mass/volume) 9.4 mg/dL 8.5-10.1 Serum or plasma total bilirubin measurement (mass/volume) 0.4 mg/dL 0.1-1.0 Serum or plasma alkaline phosphatase measurement (enzymatic activity/volume) 47 U/L 40-136 Serum or plasma aspartate aminotransferase measurement (enzymatic activity/ volume) 13 U/L 5-34 Serum or plasma alanine aminotransferase measurement (enzymatic activity/volume ) 16 U/L 0-55 Serum or plasma protein measurement (mass/volume) 7.2 g/dL 6.4-8.2 Serum or plasma albumin measurement (mass/volume) 4.2 g/dL 3.2-4.5 Complete urinalysis with reflex to culture - 07/08/16 01:24 Urine color determination YELLOW NRG Urine clarity determination SLIGHTLY CLOUDY NRG Urine pH measurement by test strip 6 5-9 Specific gravity of urine by test strip 1.020 1.016- 1.022 Urine protein assay by test strip, semi-quantitative NEGATIVE NEGATIVE Urine glucose detection by automated test strip NEGATIVE NEGATIVE Erythrocytes detection in urine sediment by light microscopy NEGATIVE NEGATIVE Urine ketones detection by automated test strip NEGATIVE NEGATIVE Urine nitrite detection by test strip NEGATIVE NEGATIVE Urine total bilirubin detection by test strip NEGATIVE NEGATIVE Urine urobilinogen measurement by automated test strip (mass/volume) NORMAL NORMAL Urine leukocyte esterase detection by dipstick 1+ NEGATIVE Automated urine sediment erythrocyte count by microscopy (number/high power field) NONE NRG Automated urine sediment leukocyte count by microscopy (number/high power field ) [HPF] NRG Bacteria detection in urine sediment by light microscopy MODERATE NRG Squamous epithelial cells detection in urine sediment by light microscopy 5-10 NRG Crystals detection in urine sediment by light microscopy NONE NRG Casts detection in urine sediment by light microscopy NONE NRG Mucus detection in urine sediment by light microscopy NEGATIVE NRG Complete urinalysis with reflex to culture YES NRG Bacterial urine culture - 07/08/16 01:24 URINE CULTURE RESULTS 10,000/ML - 100,000/ML NRG Complete urinalysis with reflex to culture - 07/09/16 10:26 Urine color determination YELLOW NRG Urine clarity determination CLEAR NRG Urine pH measurement by test strip 8 5-9 Specific gravity of urine by test strip 1.015 1.016- 1.022 Urine protein assay by test strip, semi-quantitative NEGATIVE NEGATIVE Urine glucose detection by automated test strip NEGATIVE NEGATIVE Erythrocytes detection in urine sediment by light microscopy NEGATIVE NEGATIVE Urine ketones detection by automated test strip NEGATIVE NEGATIVE Urine nitrite detection by test strip NEGATIVE NEGATIVE Urine total bilirubin detection by test strip NEGATIVE NEGATIVE Urine urobilinogen measurement by automated test strip (mass/volume) NORMAL NORMAL Urine leukocyte esterase detection by dipstick 2+ NEGATIVE Automated urine sediment erythrocyte count by microscopy (number/high power field) NONE NRG Automated urine sediment leukocyte count by microscopy (number/high power field ) [HPF] NRG Bacteria detection in urine sediment by light microscopy MODERATE NRG Squamous epithelial cells detection in urine sediment by light microscopy 10-25 NRG Crystals detection in urine sediment by light microscopy PRESENT NRG Casts detection in urine sediment by light microscopy NONE NRG Mucus detection in urine sediment by light microscopy NEGATIVE NRG Complete urinalysis with reflex to culture YES NRG Amorphous sediment detection in urine sediment by light microscopy MOD SHU PHOSPHATE NRG Bacterial urine culture - 07/09/16 10:26 URINE CULTURE RESULTS <10,000/ML NRG Bacterial throat culture - 08/21/16 01:35 Bacterial throat culture [facility] NRG Capillary blood glucose measurement by glucometer (mass/volume) - 09/09/16 13: 45 Capillary blood glucose measurement by glucometer (mass/volume) 88 mg/dL 70-110 Complete blood count (CBC) with automated white blood cell (WBC) differential - 10/21/16 02:51 Blood leukocytes automated count (number/volume) 13.8 10*3/uL 4.3-11.0 Blood erythrocytes automated count (number/volume) 4.05 10*6/uL 4.35-5.85 Venous blood hemoglobin measurement (mass/volume) 11.5 g/dL 11.5-16.0 Blood hematocrit (volume fraction) 34 % 35-52 Automated erythrocyte mean corpuscular volume 84 [foz_us] 80-99 Automated erythrocyte mean corpuscular hemoglobin (mass per erythrocyte) 28 pg 25-34 Automated erythrocyte mean corpuscular hemoglobin concentration measurement ( mass/volume) 34 g/dL 32-36 Automated erythrocyte distribution width ratio 13.5 % 10.0-14.5 Automated blood platelet count (count/volume) 219 10*3/uL 130-400 Automated blood platelet mean volume measurement 10.6 [foz_us] 7.4-10.4 Automated blood neutrophils/100 leukocytes 65 % 42-75 Automated blood lymphocytes/100 leukocytes 23 % 12-44 Blood monocytes/100 leukocytes 9 % 0-12 Automated blood eosinophils/100 leukocytes 3 % 0-10 Automated blood basophils/100 leukocytes 0 % 0-10 Blood neutrophils automated count (number/volume) 9.0 10*3 1.8-7.8 Blood lymphocytes automated count (number/volume) 3.2 10*3 1.0-4.0 Blood monocytes automated count (number/volume) 1.2 10*3 0.0-1.0 Automated eosinophil count 0.4 10*3/uL 0.0-0.3 Automated blood basophil count (count/volume) 0.0 10*3/uL 0.0-0.1 Complete urinalysis with reflex to culture - 11/04/16 02:10 Urine color determination YELLOW NRG Urine clarity determination SLIGHTLY CLOUDY NRG Urine pH measurement by test strip 7 5-9 Specific gravity of urine by test strip 1.015 1.016- 1.022 Urine protein assay by test strip, semi-quantitative 1+ NEGATIVE Urine glucose detection by automated test strip NEGATIVE NEGATIVE Erythrocytes detection in urine sediment by light microscopy 3+ NEGATIVE Urine ketones detection by automated test strip NEGATIVE NEGATIVE Urine nitrite detection by test strip NEGATIVE NEGATIVE Urine total bilirubin detection by test strip NEGATIVE NEGATIVE Urine urobilinogen measurement by automated test strip (mass/volume) 4 mg/dL NORMAL Urine leukocyte esterase detection by dipstick 1+ NEGATIVE Automated urine sediment erythrocyte count by microscopy (number/high power field) RARE NRG Automated urine sediment leukocyte count by microscopy (number/high power field ) RARE NRG Bacteria detection in urine sediment by light microscopy FEW NRG Crystals detection in urine sediment by light microscopy PRESENT NRG Casts detection in urine sediment by light microscopy NONE NRG Mucus detection in urine sediment by light microscopy NEGATIVE NRG Complete urinalysis with reflex to culture NO NRG Amorphous sediment detection in urine sediment by light microscopy LARGE SHU URATES NRG Bacterial urine culture - 11/04/16 02:10 Bacterial urine culture [id number] NRG COLONY COUNT >100,000/ML NRG Complete urinalysis with reflex to culture - 11/05/16 21:30 Urine color determination YELLOW NRG Urine clarity determination CLEAR NRG Urine pH measurement by test strip 7 5-9 Specific gravity of urine by test strip 1.010 1.016- 1.022 Urine protein assay by test strip, semi-quantitative NEGATIVE NEGATIVE Urine glucose detection by automated test strip NEGATIVE NEGATIVE Erythrocytes detection in urine sediment by light microscopy 2+ NEGATIVE Urine ketones detection by automated test strip NEGATIVE NEGATIVE Urine nitrite detection by test strip NEGATIVE NEGATIVE Urine total bilirubin detection by test strip NEGATIVE NEGATIVE Urine urobilinogen measurement by automated test strip (mass/volume) 1 mg/dL NORMAL Urine leukocyte esterase detection by dipstick 3+ NEGATIVE Automated urine sediment erythrocyte count by microscopy (number/high power field) [HPF] NRG Automated urine sediment leukocyte count by microscopy (number/high power field ) [HPF] NRG Bacteria detection in urine sediment by light microscopy MODERATE NRG Squamous epithelial cells detection in urine sediment by light microscopy 5-10 NRG Crystals detection in urine sediment by light microscopy PRESENT NRG Casts detection in urine sediment by light microscopy NONE NRG Mucus detection in urine sediment by light microscopy NEGATIVE NRG Complete urinalysis with reflex to culture YES NRG Calcium oxalate crystals detection in urine sediment by light microscopy FEW NRG Bacterial urine culture - 11/05/16 21:30 Bacterial urine culture [id number] NRG COLONY COUNT <10,000 NRG URINE CULTURE RESULTS PLUS NRG Complete blood count (CBC) with automated white blood cell (WBC) differential - 11/28/16 06:15 Blood leukocytes automated count (number/volume) 15.6 10*3/uL 4.3-11.0 Blood erythrocytes automated count (number/volume) 4.07 10*6/uL 4.35-5.85 Venous blood hemoglobin measurement (mass/volume) 10.8 g/dL 11.5-16.0 Blood hematocrit (volume fraction) 33 % 35-52 Automated erythrocyte mean corpuscular volume 81 [foz_us] 80-99 Automated erythrocyte mean corpuscular hemoglobin (mass per erythrocyte) 27 pg 25-34 Automated erythrocyte mean corpuscular hemoglobin concentration measurement ( mass/volume) 33 g/dL 32-36 Automated erythrocyte distribution width ratio 14.0 % 10.0-14.5 Automated blood platelet count (count/volume) 271 10*3/uL 130-400 Automated blood platelet mean volume measurement 11.0 [foz_us] 7.4-10.4 Automated blood neutrophils/100 leukocytes 72 % 42-75 Automated blood lymphocytes/100 leukocytes 18 % 12-44 Blood monocytes/100 leukocytes 8 % 0-12 Automated blood eosinophils/100 leukocytes 2 % 0-10 Automated blood basophils/100 leukocytes 0 % 0-10 Blood neutrophils automated count (number/volume) 11.2 10*3 1.8-7.8 Blood lymphocytes automated count (number/volume) 2.8 10*3 1.0-4.0 Blood monocytes automated count (number/volume) 1.2 10*3 0.0-1.0 Automated eosinophil count 0.3 10*3/uL 0.0-0.3 Automated blood basophil count (count/volume) 0.1 10*3/uL 0.0-0.1 Blood manual differential performed detection - 11/28/16 06:15 Blood monocytes/100 leukocytes 1 % NRG Manual blood segmented neutrophils/100 leukocytes 64 % NRG Blood band neutrophils/100 leukocytes 6 % NRG Manual blood lymphocytes/100 leukocytes 26 % NRG Manual eosinophils/100 leukocytes in nose 2 % NRG Manual blood basophils/100 leukocytes 1 % NRG Blood microcytes detection by light microscopy SLIGHT NRG Blood type T Indirect antibody screen panel - 11/28/16 06:15 ABO+Rh group AP NRG Transfusion band number [id number] NRG Blood group antibody screen NEGATIVE NRG Complete blood count (CBC) with automated white blood cell (WBC) differential - 11/29/16 06:32 Blood leukocytes automated count (number/volume) 17.3 10*3/uL 4.3-11.0 Blood erythrocytes automated count (number/volume) 3.79 10*6/uL 4.35-5.85 Venous blood hemoglobin measurement (mass/volume) 10.1 g/dL 11.5-16.0 Blood hematocrit (volume fraction) 31 % 35-52 Automated erythrocyte mean corpuscular volume 82 [foz_us] 80-99 Automated erythrocyte mean corpuscular hemoglobin (mass per erythrocyte) 27 pg 25-34 Automated erythrocyte mean corpuscular hemoglobin concentration measurement ( mass/volume) 33 g/dL 32-36 Automated erythrocyte distribution width ratio 14.0 % 10.0-14.5 Automated blood platelet count (count/volume) 256 10*3/uL 130-400 Automated blood platelet mean volume measurement 10.9 [foz_us] 7.4-10.4 Automated blood neutrophils/100 leukocytes 70 % 42-75 Automated blood lymphocytes/100 leukocytes 19 % 12-44 Blood monocytes/100 leukocytes 10 % 0-12 Automated blood eosinophils/100 leukocytes 1 % 0-10 Automated blood basophils/100 leukocytes 0 % 0-10 Blood neutrophils automated count (number/volume) 12.2 10*3 1.8-7.8 Blood lymphocytes automated count (number/volume) 3.2 10*3 1.0-4.0 Blood monocytes automated count (number/volume) 1.7 10*3 0.0-1.0 Automated eosinophil count 0.2 10*3/uL 0.0-0.3 Automated blood basophil count (count/volume) 0.0 10*3/uL 0.0-0.1 Complete blood count (CBC) with automated white blood cell (WBC) differential - 04/03/17 18:29 Blood leukocytes automated count (number/volume) 7.3 10*3/uL 4.3-11.0 Blood erythrocytes automated count (number/volume) 4.60 10*6/uL 4.35-5.85 Venous blood hemoglobin measurement (mass/volume) 12.0 g/dL 11.5-16.0 Blood hematocrit (volume fraction) 37 % 35-52 Automated erythrocyte mean corpuscular volume 80 [foz_us] 80-99 Automated erythrocyte mean corpuscular hemoglobin (mass per erythrocyte) 26 pg 25-34 Automated erythrocyte mean corpuscular hemoglobin concentration measurement ( mass/volume) 32 g/dL 32-36 Automated erythrocyte distribution width ratio 14.1 % 10.0-14.5 Automated blood platelet count (count/volume) 293 10*3/uL 130-400 Automated blood platelet mean volume measurement 10.8 [foz_us] 7.4-10.4 Automated blood neutrophils/100 leukocytes 62 % 42-75 Automated blood lymphocytes/100 leukocytes 26 % 12-44 Blood monocytes/100 leukocytes 7 % 0-12 Automated blood eosinophils/100 leukocytes 4 % 0-10 Automated blood basophils/100 leukocytes 0 % 0-10 Blood neutrophils automated count (number/volume) 4.5 10*3 1.8-7.8 Blood lymphocytes automated count (number/volume) 1.9 10*3 1.0-4.0 Blood monocytes automated count (number/volume) 0.5 10*3 0.0-1.0 Automated eosinophil count 0.3 10*3/uL 0.0-0.3 Automated blood basophil count (count/volume) 0.0 10*3/uL 0.0-0.1 Comprehensive metabolic panel - 04/03/17 18:29 Serum or plasma sodium measurement (moles/volume) 143 mmol/L 135-145 Serum or plasma potassium measurement (moles/volume) 3.7 mmol/L 3.6-5.0 Serum or plasma chloride measurement (moles/volume) 111 mmol/L 98-107 Carbon dioxide 22 mmol/L 21-32 Serum or plasma anion gap determination (moles/volume) 10 mmol/L 5-14 Serum or plasma urea nitrogen measurement (mass/volume) 10 mg/dL 7-18 Serum or plasma creatinine measurement (mass/volume) 0.77 mg/dL 0.60-1.30 Serum or plasma urea nitrogen/creatinine mass ratio 13 0 -20 Serum or plasma creatinine measurement with calculation of estimated glomerular filtration rate > NRG Serum or plasma glucose measurement (mass/volume) 98 mg/dL 70-105 Serum or plasma calcium measurement (mass/volume) 9.0 mg/dL 8.5-10.1 Serum or plasma total bilirubin measurement (mass/volume) 0.4 mg/dL 0.1-1.0 Serum or plasma alkaline phosphatase measurement (enzymatic activity/volume) 47 U/L 40-136 Serum or plasma aspartate aminotransferase measurement (enzymatic activity/ volume) 13 U/L 5-34 Serum or plasma alanine aminotransferase measurement (enzymatic activity/volume ) 20 U/L 0-55 Serum or plasma protein measurement (mass/volume) 5.8 g/dL 6.4-8.2 Serum or plasma albumin measurement (mass/volume) 4.2 g/dL 3.2-4.5 Urine beta human chorionic gonadotropin (hCG) measurement - 04/03/17 18:29 Urine beta human chorionic gonadotropin (hCG) measurement NEGATIVE NEGATIVE Complete urinalysis with reflex to culture - 04/03/17 18:29 Urine color determination YELLOW NRG Urine clarity determination SLIGHTLY CLOUDY NRG Urine pH measurement by test strip 6 5-9 Specific gravity of urine by test strip 1.025 1.016- 1.022 Urine protein assay by test strip, semi-quantitative 1+ NEGATIVE Urine glucose detection by automated test strip NEGATIVE NEGATIVE Erythrocytes detection in urine sediment by light microscopy 5+ NEGATIVE Urine ketones detection by automated test strip NEGATIVE NEGATIVE Urine nitrite detection by test strip NEGATIVE NEGATIVE Urine total bilirubin detection by test strip NEGATIVE NEGATIVE Urine urobilinogen measurement by automated test strip (mass/volume) NORMAL NORMAL Urine leukocyte esterase detection by dipstick 2+ NEGATIVE Automated urine sediment erythrocyte count by microscopy (number/high power field) [HPF] NRG Automated urine sediment leukocyte count by microscopy (number/high power field ) [HPF] NRG Bacteria detection in urine sediment by light microscopy FEW NRG Squamous epithelial cells detection in urine sediment by light microscopy 10-25 NRG Crystals detection in urine sediment by light microscopy PRESENT NRG Casts detection in urine sediment by light microscopy NONE NRG Mucus detection in urine sediment by light microscopy SMALL NRG Complete urinalysis with reflex to culture YES NRG Calcium oxalate crystals detection in urine sediment by light microscopy FEW NRG Bacterial urine culture - 04/03/17 18:29 Bacterial urine culture [id number] NRG COLONY COUNT >100,000/ML NRG FTX;REPORTABLE SEE COMMENT NRG URINE CULTURE RESULTS PLUS NRG Complete urinalysis with reflex to culture - 05/01/17 14:13 Urine color determination YELLOW NRG Urine clarity determination CLEAR NRG Urine pH measurement by test strip 8 5-9 Specific gravity of urine by test strip 1.010 1.016- 1.022 Urine protein assay by test strip, semi-quantitative 1+ NEGATIVE Urine glucose detection by automated test strip NEGATIVE NEGATIVE Erythrocytes detection in urine sediment by light microscopy NEGATIVE NEGATIVE Urine ketones detection by automated test strip NEGATIVE NEGATIVE Urine nitrite detection by test strip NEGATIVE NEGATIVE Urine total bilirubin detection by test strip NEGATIVE NEGATIVE Urine urobilinogen measurement by automated test strip (mass/volume) NORMAL NORMAL Urine leukocyte esterase detection by dipstick 1+ NEGATIVE Automated urine sediment erythrocyte count by microscopy (number/high power field) [HPF] NRG Automated urine sediment leukocyte count by microscopy (number/high power field ) [HPF] NRG Bacteria detection in urine sediment by light microscopy TRACE NRG Squamous epithelial cells detection in urine sediment by light microscopy 2-5 NRG Crystals detection in urine sediment by light microscopy NONE NRG Casts detection in urine sediment by light microscopy NONE NRG Mucus detection in urine sediment by light microscopy NEGATIVE NRG Complete urinalysis with reflex to culture NO NRG Complete blood count (CBC) with automated white blood cell (WBC) differential - 05/14/17 21:53 Blood leukocytes automated count (number/volume) 6.4 10*3/uL 4.3-11.0 Blood erythrocytes automated count (number/volume) 4.64 10*6/uL 4.35-5.85 Venous blood hemoglobin measurement (mass/volume) 12.2 g/dL 11.5-16.0 Blood hematocrit (volume fraction) 37 % 35-52 Automated erythrocyte mean corpuscular volume 79 [foz_us] 80-99 Automated erythrocyte mean corpuscular hemoglobin (mass per erythrocyte) 26 pg 25-34 Automated erythrocyte mean corpuscular hemoglobin concentration measurement ( mass/volume) 33 g/dL 32-36 Automated erythrocyte distribution width ratio 15.9 % 10.0-14.5 Automated blood platelet count (count/volume) 273 10*3/uL 130-400 Automated blood platelet mean volume measurement 10.7 [foz_us] 7.4-10.4 Automated blood neutrophils/100 leukocytes 74 % 42-75 Automated blood lymphocytes/100 leukocytes 12 % 12-44 Blood monocytes/100 leukocytes 13 % 0-12 Automated blood eosinophils/100 leukocytes 1 % 0-10 Automated blood basophils/100 leukocytes 0 % 0-10 Blood neutrophils automated count (number/volume) 4.8 10*3 1.8-7.8 Blood lymphocytes automated count (number/volume) 0.8 10*3 1.0-4.0 Blood monocytes automated count (number/volume) 0.8 10*3 0.0-1.0 Automated eosinophil count 0.1 10*3/uL 0.0-0.3 Automated blood basophil count (count/volume) 0.0 10*3/uL 0.0-0.1 Serum heterophile antibody titer - 05/14/17 21:53 Serum heterophile antibody titer NEGATIVE NEGATIVE Streptococcus pyogenes antigen detection - 05/14/17 21:53 Streptococcus pyogenes antigen detection NEGATIVE NEGATIVE Bacterial throat culture - 05/14/17 21:53 Bacterial throat culture NBS NRG Complete urinalysis with reflex to culture - 09/26/17 17:35 Urine color determination RED NRG Urine clarity determination BLOODY NRG Urine pH measurement by test strip 5 5-9 Specific gravity of urine by test strip 1.020 1.016- 1.022 Urine protein assay by test strip, semi-quantitative 3+ NEGATIVE Urine glucose detection by automated test strip NEGATIVE NEGATIVE Erythrocytes detection in urine sediment by light microscopy 5+ NEGATIVE Urine ketones detection by automated test strip 1+ NEGATIVE Urine nitrite detection by test strip NEGATIVE NEGATIVE Urine total bilirubin detection by test strip NEGATIVE NEGATIVE Urine urobilinogen measurement by automated test strip (mass/volume) NORMAL NORMAL Urine leukocyte esterase detection by dipstick 3+ NEGATIVE Automated urine sediment erythrocyte count by microscopy (number/high power field) TNTC NRG Automated urine sediment leukocyte count by microscopy (number/high power field ) [HPF] NRG Bacteria detection in urine sediment by light microscopy MODERATE NRG Crystals detection in urine sediment by light microscopy NONE NRG Casts detection in urine sediment by light microscopy NONE NRG Mucus detection in urine sediment by light microscopy NEGATIVE NRG Complete urinalysis with reflex to culture YES NRG Bacterial urine culture - 09/26/17 17:35 Bacterial urine culture [id number] NRG COLONY COUNT >100,000/ML NRG FTX;REPORTABLE COAGULASE NEGATIVE STAPHYLOCOCCUS NRG FREE TEXT ENTRY 2 SEE COMMENT NRG Encounters ACCT No. Visit Date/Time Discharge Status Pt. Type Provider Facility Loc./Unit Complaint [id number] 02/14/2015 09:23:00 02/14/2015 23:59:59 CLS Outpatient TJ CHAUDHRY APRN [id number] 11/29/2014 11:59:00 11/29/2014 23:59:59 MARYCARMEN Outpatient TJ CHAUDHRY APRN [id number] 11/29/2014 11:59:00 11/29/2014 23:59:59 MARYCARMEN Outpatient TJ CHAUDHRY APRN [id number] 10/19/2014 15:08:00 10/19/2014 23:59:59 MARYCARMEN Outpatient ALISIA SIDHU [id number] 10/14/2014 08:59:00 10/14/2014 23:59:59 CLS Outpatient ALISIA SIDHU [id number] 09/19/2014 14:14:00 09/19/2014 23:59:59 CLS Outpatient NEVA QUILESF, ALISIA Mitchell [id number] 08/29/2014 14:04:00 08/29/2014 23:59:59 CLS Outpatient NEVA QUILESF, ALISIA Mitchell [id number] 08/22/2014 14:46:00 08/22/2014 23:59:59 CLS Outpatient NEVA DUNCANMF, ALISIA Mitchell [id number] 07/06/2014 09:43:00 07/06/2014 23:59:59 CLS Outpatient 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 [id number] 05/05/2014 10:05:00 05/05/2014 23:59:59 CLS Outpatient ISIDORO DEL CIDYOVANITJ [id number] 03/24/2014 08:43:00 03/24/2014 23:59:59 CLS Outpatient NATE MEI PHD [id number] 02/22/2014 15:57:00 02/22/2014 23:59:59 CLS Outpatient NATE MEI PHD [id number] 01/28/2014 08:17:00 01/28/2014 23:59:59 CLS Outpatient NATE MEI PHD [id number] 10/19/2013 16:02:00 10/19/2013 23:59:59 CLS Outpatient SHEBA CAMPOSKACEY Jake [id number] 07/09/2012 08:24:00 07/09/2012 23:59:59 CLS Outpatient NATE MEI PHD [id number] 06/23/2013 07:46:00 Document Registration [id number] 11/15/2012 15:36:46 RECURRING [id number] 09/26/2017 17:31:00 09/26/2017 19:07:00 DIS Emergency JAMEY ROMAN [facility] ER PELVIC PAIN [id number] 09/14/2017 15:07:00 09/14/2017 15:34:00 DIS Emergency GLO BLOOM CHOCOLATE PRODUCTION MACHINE OPERATOR [facility] ER ANXIETY/CP [id number] 07/14/2017 18:15:00 07/14/2017 18:59:00 DIS Emergency BRENDA KIRBY MD [facility] ER LOWER BACK PAIN [id number] 06/17/2017 01:04:00 06/17/2017 01:29:00 DIS Emergency BRENDA KIRBY MD [facility] ER CHEST PAIN SOA [id number] 05/14/2017 21:27:00 05/14/2017 22:28:00 DIS Emergency GLO BLOOM APRN [facility] ER CHILLS;THROAT PAIN [id number] 05/01/2017 14:07:00 05/01/2017 15:00:00 DIS Emergency GLO BLOOM APRN [facility] ER POSS UTI/STD [id number] 04/03/2017 16:56:00 04/03/2017 20:10:00 DIS Emergency TACOS KAUR DO [facility] ER ABD PAIN [id number] 11/28/2016 05:55:00 11/29/2016 18:00:00 DIS Inpatient TATIANA WEI MD [facility] LDRP INDUCTION [id number] 11/05/2016 21:23:00 11/05/2016 23:23:00 DIS Outpatient TATIANA WEI MD [facility] WSo CONTRACTIONS [id number] 11/04/2016 01:52:00 11/04/2016 04:44:00 DIS Outpatient KOLE LAMB MD [facility] WSo CONTRACTIONS W BLOOD [id number] 10/21/2016 02:16:00 10/21/2016 03:38:00 DIS Emergency TACOS KAUR DO [facility] ER COUGHING NAUSEA HARD BREATHING [id number] 09/09/2016 13:22:00 09/09/2016 23:59:59 CLS Outpatient TATIANA WEI MD [facility] LAB ABNORMAL GLUCOSE TOLERANCE TEST IN [id number] 09/07/2016 14:21:00 09/07/2016 15:10:00 DIS Outpatient KOLE LAMB MD [facility] WSo DECREASED MOVEMENT [id number] 09/03/2016 00:25:00 09/03/2016 00:38:00 DIS Emergency OSVALDO VALENTIN MD [facility] ER POSS BUG BITE ON RT ARM [id number] 09/02/2016 14:08:00 09/02/2016 23:59:59 CLS Outpatient TATIANA WEI MD [facility] RAD NORMAL PREG IN SECOND TRIMESTER [id number] 08/27/2016 23:27:00 08/28/2016 00:40:00 DIS Emergency OSVALDO VALENTIN MD [facility] ER COUGH [id number] 07/27/2016 16:59:00 07/27/2016 17:55:00 DIS Outpatient KACEY SCRUGGS DO [facility] WSo CONTRACTIONS [id number] 07/10/2016 10:29:00 07/10/2016 23:59:59 CLS Outpatient KACEY SCRUGGS DO [facility] RAD NORMAL [id number] 07/09/2016 10:08:00 07/09/2016 12:30:00 DIS Emergency EMILEE QUIROZ MD [facility] ER POSS CONTRACTIONS 18 WEEKS PREG [id number] 07/08/2016 00:10:00 07/08/2016 03:17:00 DIS Emergency EMILEE QUIROZ MD [facility] ER HEADACHE, 17 WKS PREG [id number] 07/01/2016 20:38:00 07/01/2016 23:50:00 DIS Emergency JAMEY ROMAN [facility] ER VOMITING/DIZZY/ HEADACHE [id number] 06/27/2016 20:05:00 06/27/2016 21:07:00 DIS Emergency GLO BLOOM CHOCOLATE PRODUCTION MACHINE OPERATOR [facility] ER FALL [id number] 06/13/2016 00:28:00 06/13/2016 01:21:00 DIS Emergency HERNANDO SUNSHINE DO [facility] ER ALTERCATION [id number] 06/12/2016 00:37:00 06/12/2016 01:45:00 DIS Emergency HERNANDO SUNSHINE DO [facility] ER HURTS TO URINATE [id number] 06/06/2016 21:08:00 06/06/2016 23:03:00 DIS Emergency GLO BLOOM CHOCOLATE PRODUCTION MACHINE OPERATOR [facility] ER NAUSEA;DIZZINESS [id number] 05/30/2016 17:16:00 05/30/2016 23:59:59 CLS Outpatient KACEY SCRUGGS DO [facility] RAD CRAMPING [id number] 05/12/2016 18:43:00 05/12/2016 20:21:00 DIS Emergency JAMEY ROMAN [facility] ER ABD PAIN [id number] 04/26/2016 15:25:00 04/26/2016 18:28:00 DIS Emergency JAMEY ROMAN [facility] ER LATE PERIOD/KNOT IN ABD AREA [id number] 02/26/2016 21:34:00 02/26/2016 22:47:00 DIS Emergency OSVALDO VALENTIN MD [facility] ER [id number] 01/28/2016 13:32:00 01/28/2016 16:19:00 DIS Emergency JAMEY ROMAN [facility] ER [id number] 06/15/2015 17:54:00 06/15/2015 18:45:00 DIS Emergency GLO BLOOM CHOCOLATE PRODUCTION MACHINE OPERATOR [facility] ER [id number] 10/31/2014 16:15:00 10/31/2014 17:20:00 DIS Emergency GLO BLOOM CHOCOLATE PRODUCTION MACHINE OPERATOR [facility] ER [id number] 10/08/2014 21:47:00 10/08/2014 22:15:00 DIS Emergency JUVENAL ROGER MD [facility] ER [id number] 04/16/2014 21:59:00 04/16/2014 22:40:00 DIS Emergency GLO BLOOM CHOCOLATE PRODUCTION MACHINE OPERATOR [facility] ER DIZZINESS LEFT SIDE PAIN [id number] 03/21/2014 14:30:00 03/21/2014 15:36:00 DIS Emergency [id number] 02/13/2014 23:05:00 02/13/2014 23:40:00 DIS Emergency JONGHERNANDO Riggs DO [facility] ER ABD PAIN [id number] 01/24/2014 01:45:00 01/26/2014 17:45:00 DIS Inpatient TATIANA WEI MD [facility] CTXS/ LABOR [id number] 01/22/2014 23:06:00 01/23/2014 00:20:00 DIS Outpatient KACEY SCRUGGS DO [facility] CTXS [id number] 01/21/2014 16:02:00 01/21/2014 17:08:00 DIS Outpatient TATIANA WEI MD [facility] ABD PAIN [id number] 01/20/2014 23:16:00 01/21/2014 00:48:00 DIS Outpatient TATIANA WEI MD [facility] CONTRACTIONS,FLUID LEAKING [id number] 01/05/2014 16:57:00 01/05/2014 18:40:00 DIS Outpatient TATIANA WEI MD [facility] CONTRACTIONS [id number] 12/27/2013 15:52:00 12/27/2013 18:45:00 DIS Outpatient TATIANA WEI MD [facility] ABD PAIN; BACK PAIN [id number] 12/22/2013 21:16:00 12/22/2013 22:55:00 DIS Emergency GLO BLOOM APRN [facility] ER FELL OFF BED @ 34 WEEKS, HEAD PAIN [id number] 12/10/2013 23:40:00 12/11/2013 10:40:00 DIS Outpatient TATIANA WEI MD [facility] LOUD NOISES BOTHER PT, FEVER,COUGH,32 WKS PREG [id number] 12/10/2013 23:07:00 12/10/2013 23:37:00 DIS Emergency JUVENAL ROGER MD [facility] ER LOUD NOISES BOTHER PT, FEVER,COUGH [id number] 12/07/2013 06:15:00 12/07/2013 07:47:00 DIS Emergency HERNANDO SUNSHINE DO [facility] ER DIZZY,COUGHING,DIARRHEA [id number] 11/23/2013 13:22:00 11/23/2013 17:56:00 DIS Emergency JAMEY ROMAN [facility] ER LOW BLOOD SUGAR/FEVER 29 WKS PREG [id number] 10/27/2013 17:11:00 10/27/2013 20:00:00 DIS Outpatient TATIANA WEI MD [facility] C/O PREMATURE LABOR [id number] 10/23/2013 16:35:00 10/23/2013 18:15:00 DIS Outpatient TATIANA WEI MD [facility] WSo BLEEDING [id number] 10/05/2013 20:27:00 10/05/2013 21:46:00 DIS Emergency GLO BLOOM APRN [facility] ER N/V/D [id number] 09/23/2013 14:18:00 09/23/2013 23:59:59 CLS Outpatient TATIANA WEI MD [facility] RAD FUNDAL HEIGHT DISCREPENCY [id number] 09/03/2013 23:00:00 09/03/2013 23:30:00 DIS Emergency JONG DO HERNANDO K [facility] ER ALTERCATION,BACK PAIN [id number] 08/27/2013 18:08:00 08/27/2013 20:58:00 DIS Emergency OSVALDO VALENTIN MD [facility] ER FELL AT HOME; ABD PAIN ; L KNEE PAIN [id number] 08/21/2013 14:28:00 08/21/2013 16:21:00 DIS Emergency GLO BLOOM APRN [facility] ER 15 WKS; ABD PAIN [id number] 07/21/2013 14:51:00 07/21/2013 15:58:00 DIS Emergency [id number] 06/28/2013 15:38:00 06/28/2013 23:59:59 CLS Outpatient [id number] 05/09/2013 17:13:00 05/09/2013 19:04:00 DIS Emergency [id number] 04/30/2013 18:48:00 04/30/2013 21:44:00 DIS Emergency [id number] 04/04/2013 20:11:00 04/04/2013 21:26:00 DIS Emergency [id number] 03/04/2013 13:16:00 03/04/2013 23:59:59 CLS Outpatient MAJOR, GAMALIEL LABEL MAKER [facility] QUICK [id number] 08/21/2016 01:00:00 Document Registration [id number] 08/20/2016 23:48:00 Document Registration [id number] 11/16/2014 10:01:00 Document Registration [id number] 11/16/2014 10:01:00 Document Registration [id number] 11/16/2014 10:01:00 Document Registration [id number] 11/16/2014 10:01:00 Document Registration [id number] 11/16/2014 10:01:00 Document Registration [id number] 11/16/2014 10:01:00 Document Registration [id number] 11/16/2014 10:01:00 Document Registration [id number] 11/16/2014 10:01:00 Document Registration [id number] 11/16/2014 10:01:00 Document Registration [id number] 11/16/2014 10:01:00 Document Registration [id number] 11/16/2014 10:01:00 Document Registration [id number] 11/16/2014 10:01:00 Document Registration [id number] 11/16/2014 10:01:00 Document Registration [id number] 11/16/2014 10:01:00 Document Registration [id number] 11/16/2014 10:01:00 Document Registration [id number] 08/26/2011 09:52:00 Document Registration [id number] 05/09/2011 17:28:00 Document Registration [id number] 03/20/2011 15:01:00 Document Registration [id number] 12/06/2010 22:29:00 Document Registration [id number] 01/22/2010 14:40:00 Document Registration
== END 2017-10-23 17:55 | disposition home or self-care (01) ==
LOC: EDUNIT# 17:39 → ER 17:40
DX: K05.20 Aggressive periodontitis, unspecified (principal); J45.909 Unspecified asthma, uncomplicated; K21.9 Gastro-esophageal reflux disease without esophagitis; F41.9 Anxiety disorder, unspecified; Z87.440 Personal history of urinary (tract) infections
CPT/HCPCS: 99282

== ENCOUNTER 2017-10-30 00:34 | Emergency (ER) | payer MEDICAID ==
[~2017-10-30] VITALS: Ht 160 cm; Wt 53.1 kg
[~2017-10-30 00:34] MED LIST changes: +NAPR-1071 PO; +PENI500T PO
[2017-10-30] MEDS ORDERED: ONDANSETRON 4 MG (ZOFRAN) ORAL DISSOLVE TAB SL ONE (02:00)
[2017-10-30] MEDS ORDERED: ONDA4TAB8 SL (02:13)
--- NOTE | 2017-10-30 02:13 | ED General ---
General Chief Complaint: General Problems/Pain Stated Complaint: FEVER,NAUSEA Nursing Triage Note: PT TO ED 10 W/ FRIEND FOR C/O NAUSEA ET POSS FEVER ONSET 10/29. PT STATES SHE THOUGHT SHE WAS RUNNING A TEMP BUT DOESN'T KNOW SHE HAS NO THERMOMETER. Nursing Sepsis Screen: No Definite Risk Source of Information: Patient Exam Limitations: No Limitations Allergies and Home Medications Allergies Coded Allergies: No Known Drug Allergies (Unverified , 09/26/17) Home Medications Cephalexin 500 Mg Capsule, 500 MG PO TID, #21 Ref 0 Prescribed by: JAMEY KRAFT on 09/26/17 1855 Hydroxyzine Pamoate 25 Mg Capsule, 25 MG PO Q6H PRN for ANXIETY, #30 Ref 0 Prescribed by: BRENDA KIRBY on 06/17/17 0131 Naproxen 500 Mg Tablet, 500 MG PO BID PRN for PAIN-MODERATE TO SEVERE, #30 Prescribed by: GLO BLOOM on 10/23/17 1742 Penicillin V Potassium 500 Mg Tablet, 500 MG PO QID, #28 Prescribed by: GLO BLOOM on 10/23/17 1742 Phenazopyridine HCl 100 Mg Tablet, 1-2 TAB PO TID PRN for pain, #14 Ref 1 Prescribed by: JAMEY KRAFT on 09/26/17 1855 Past Tfzthjx-Zqtind-Ilxzpo Hx Patient Social History Alcohol Use: Denies Use Recreational Drug Use: No Smoking Status: Current Everyday Smoker Type Used: Cigarettes Former Smoker, Quit: Jun 30, 2017 2nd Hand Smoke Exposure: No Recent Foreign Travel: No Contact w/Someone Who Travel: No Recent Infectious Disease Expo: No Recent Hopitalizations: No Physical Abuse: No Sexual Abuse: No Mistreated: No Fear: No Immunizations Up To Date Tetanus Booster (TDap): Unknown PED Vaccines UTD: No Date of Influenza Vaccine: Oct 04, 2016 Seasonal Allergies Seasonal Allergies: Yes Surgeries History of Surgeries: No Respiratory History of Respiratory Disorde: Yes (WINTER INDUCED ASTHMA) Respiratory Disorders: Asthma Currently Using CPAP: No Currently Using BIPAP: No Cardiovascular History of Cardiac Disorders: No Neurological History of Neurological Disord: No Reproductive System Hx Reproductive Disorders: No Sexually Transmitted Disease: Yes HIV/AIDS: No Female Reproductive Disorders: Denies Genitourinary History of Genitourinary Disor: No Genitourinary Disorders: UTI-Chronic Gastrointestinal History of Gastrointestinal Di: No Gastrointestinal Disorders: Gastroesophageal Reflux Musculoskeletal History of Musculoskeletal Dis: No Endocrine History of Endocrine Disorders: No HEENT History of HEENT Disorders: No Cancer History of Cancer: No Psychosocial History of Psychiatric Problem: Yes Behavioral Health Disorders: Anxiety Suicide Risk Score: 0 Integumentary History of Skin or Integumenta: No Blood Transfusions History of Blood Disorders: No Family Medical History Significant Family History: No Pertinent Family Hx Family Medial History: Family history: Asthma 03 MOTHER Family history: Diabetes mellitus (type 2 diabetes) 03 MOTHER History of - disorder (anxiety, Brother has heart murmur) 03 MOTHER Physical Exam Vital Signs Vital Sign - Last 12Hours 10/30/17 00:56 Temp 98.7 Pulse 66 Resp 18 B/P (MAP) 111/52 (71) Pulse Ox 99 O2 Delivery Room Air Capillary Refill : Less Than 3 Seconds Progress/Results/Core Measures Suspected Sepsis Recent Fever Within 48 Hours: No Infection Criteria Present: None New/Unexplained Altered Menta: No Sepsis Screen: No Definite Risk Sepsis Diagnosis: SIRS Temperature:98.7 Pulse: 66 Respiratory Rate: 18 Blood Pressure 111 /52 Mean: 71 Results/Orders My Orders Orders - EMILEE QUIROZ MD Ondansetron Oral Dissolve Tab (Zofran (10/30/17 02:00) Medications Given in ED Current Medications Medications Dose Ordered Sig/Adelita Route Start Time Stop Time Status Last Admin Dose Admin Ondansetron HCl 8 mg ONCE ONCE SL 10/30/17 02:00 10/30/17 02:01 DC 10/30/17 02:01 8 MG Vital Signs/I&O Vital Sign - Last 12Hours 10/30/17 00:56 Temp 98.7 Pulse 66 Resp 18 B/P (MAP) 111/52 (71) Pulse Ox 99 O2 Delivery Room Air Capillary Refill : Less Than 3 Seconds Blood Pressure Mean: 71 Departure Impression Impression: Primary Impression: Nausea and vomiting Additional Impression: Epigastric abdominal pain Disposition: 01 HOME, SELF-CARE Condition: Improved Departure-Patient Inst. Decision time for Depature: 02:10 Referrals: NO,LOCAL PHYSICIAN (PCP/Family) Primary Care Physician Patient Instructions: Acute Abdomen (Belly Pain) Add. Discharge Instructions: Drink plenty of clear liquids and gradually advance your diet with small quantities of bland food as tolerated. If abdominal discomfort persists, you may take Tums and or an qmte-sag-ekqypgh antacid such as Pepcid (famotidine). Fill your prescription for Zofran (ondansetron) if nausea continues to be a problem tomorrow. Return to the ER if symptoms worsen. All discharge instructions reviewed with patient and/or family. Voiced understanding. Scripts Ondansetron (Zofran Odt) 4 Mg Tab.rapdis 4 MG SL Q4H Y for NAUSEA/VOMITING-1ST LINE, #10 TAB Prov: EMILEE QUIROZ MD 10/30/17 EMILEE QUIROZ MD Oct 30, 2017 02:13
[2017-10-30 02:23] VITALS: BP 0/0
--- OUTSIDE RECORDS SUMMARY | 2017-10-30 19:59 | XMS REPORT | Continuity of Care Document ---
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 TATIANA WEI MD [facility] RAD FUNDAL HEIGHT DISCREPENCY [id number] 09/03/2013 23:00:00 09/03/2013 23:30:00 DIS Emergency HERNANDO SUNSHINE DO [facility] ER ALTERCATION,BACK PAIN [id number] 08/27/2013 18:08:00 08/27/2013 20:58:00 DIS Emergency OSVALDO VALENTIN MD [facility] ER FELL AT HOME; ABD PAIN ; L KNEE PAIN [id number] 08/21/2013 14:28:00 08/21/2013 16:21:00 DIS Emergency 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 [id number] 08/21/2016 01:00:00 Document Registration [id number] 08/20/2016 23:48:00 Document Registration [id number] 11/16/2014 10:01:00 Document Registration [id number] 11/16/2014 10:01:00 Document Registration [id number] 11/16/2014 10:01:00 Document Registration [id number] 11/16/2014 10:01:00 Document Registration [id number] 11/16/2014 10:01:00 Document Registration [id number] 11/16/2014 10:01:00 Document Registration [id number] 11/16/2014 10:01:00 Document Registration [id number] 11/16/2014 10:01:00 Document Registration [id number] 11/16/2014 10:01:00 Document Registration [id number] 11/16/2014 10:01:00 Document Registration [id number] 11/16/2014 10:01:00 Document Registration [id number] 11/16/2014 10:01:00 Document Registration [id number] 11/16/2014 10:01:00 Document Registration [id number] 11/16/2014 10:01:00 Document Registration [id number] 11/16/2014 10:01:00 Document Registration [id number] 08/26/2011 09:52:00 Document Registration [id number] 05/09/2011 17:28:00 Document Registration [id number] 03/20/2011 15:01:00 Document Registration [id number] 12/06/2010 22:29:00 Document Registration [id number] 01/22/2010 14:40:00 Document Registration
== END 2017-10-30 02:23 | disposition home or self-care (01) ==
LOC: EDUNIT# 00:34 → ER 00:38
DX: R11.2 Nausea with vomiting, unspecified (principal); R10.13 Epigastric pain; J45.909 Unspecified asthma, uncomplicated; K21.9 Gastro-esophageal reflux disease without esophagitis; F41.9 Anxiety disorder, unspecified; Z87.440 Personal history of urinary (tract) infections; Z87.891 Personal history of nicotine dependence
CPT/HCPCS: 99283

== ENCOUNTER 2017-12-07 17:41 | Emergency (ER) | payer MEDICAID ==
[~2017-12-07] VITALS: Ht 162.6 cm; Wt 53.1 kg
[~2017-12-07 17:41] MED LIST changes: +ONDA4TAB8 SL
--- OUTSIDE RECORDS SUMMARY | 2017-12-07 17:56 | XMS REPORT | Continuity of Care Document ---
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 10/08/2014 21:47:00 10/08/2014 22:15:00 DIS Emergency JUVENAL ROGER MD [facility] ER [id number] 04/16/2014 21:59:00 04/16/2014 22:40:00 DIS Emergency GLO BLOOM APRN [facility] ER DIZZINESS LEFT SIDE PAIN [id number] 03/21/2014 14:30:00 03/21/2014 15:36:00 DIS Emergency [id number] 02/13/2014 23:05:00 02/13/2014 23:40:00 DIS Emergency HERNANDO SUNSHINE DO [facility] ER ABD PAIN [id number] 01/24/2014 01:45:00 01/26/2014 17:45:00 DIS Inpatient TATIANA WEI MD [facility] CTXS/ LABOR [id number] 01/22/2014 23:06:00 01/23/2014 00:20:00 DIS Outpatient KACEY SCRUGGS DO [facility] CTXS [id number] 01/21/2014 16:02:00 01/21/2014 17:08:00 DIS Outpatient TATIANA WEI MD [facility] ABD PAIN [id number] 01/20/2014 23:16:00 01/21/2014 00:48:00 DIS Outpatient TATIANA WEI MD [facility] CONTRACTIONS,FLUID LEAKING [id number] 01/05/2014 16:57:00 01/05/2014 18:40:00 DIS Outpatient TATIANA WEI MD [facility] CONTRACTIONS [id number] 12/27/2013 15:52:00 12/27/2013 18:45:00 DIS Outpatient TATIANA WEI MD [facility] ABD PAIN; BACK PAIN [id number] 12/22/2013 21:16:00 12/22/2013 22:55:00 DIS Emergency GLO BLOOM APRN [facility] ER FELL OFF BED @ 34 WEEKS, HEAD PAIN [id number] 12/10/2013 23:40:00 12/11/2013 10:40:00 DIS Outpatient TATIANA WEI MD [facility] LOUD NOISES BOTHER PT, FEVER,COUGH,32 WKS PREG [id number] 12/10/2013 23:07:00 12/10/2013 23:37:00 DIS Emergency JUVENAL ROGER MD [facility] ER LOUD NOISES BOTHER PT, FEVER,COUGH [id number] 12/07/2013 06:15:00 12/07/2013 07:47:00 DIS Emergency HERNANDO SUNSHINE DO [facility] ER DIZZY,COUGHING,DIARRHEA [id number] 11/23/2013 13:22:00 11/23/2013 17:56:00 DIS Emergency JAMEY ROMAN [facility] ER LOW BLOOD SUGAR/FEVER 29 WKS PREG [id number] 10/27/2013 17:11:00 10/27/2013 20:00:00 DIS Outpatient TATIANA WEI MD [facility] C/O PREMATURE LABOR [id number] 10/23/2013 16:35:00 10/23/2013 18:15:00 DIS Outpatient TATIANA WEI MD [facility] BLEEDING [id number] 10/05/2013 20:27:00 10/05/2013 21:46:00 DIS Emergency GLO BLOOM APRN [facility] ER N/V/D [id number] 09/23/2013 14:18:00 09/23/2013 23:59:59 CLS Outpatient TATIANA WEI MD [facility] RAD FUNDAL HEIGHT DISCREPENCY [id number] 09/03/2013 23:00:00 09/03/2013 23:30:00 DIS Emergency HERNANDO SUNSHINE DO [facility] ER ALTERCATION,BACK PAIN [id number] 08/27/2013 18:08:00 08/27/2013 20:58:00 DIS Emergency BARBIE LINCOLN, OSVALDO Grace [facility] ER FELL AT HOME; ABD PAIN ; L KNEE PAIN [id number] 08/21/2013 14:28:00 08/21/2013 16:21:00 DIS Emergency GLO BLOOM CLOTH GRADER [facility] ER 15 WKS; ABD PAIN [id number] 07/21/2013 14:51:00 07/21/2013 15:58:00 DIS Emergency [id number] 06/28/2013 15:38:00 06/28/2013 23:59:59 CLS Outpatient [id number] 05/09/2013 17:13:00 05/09/2013 19:04:00 DIS Emergency [id number] 04/30/2013 18:48:00 04/30/2013 21:44:00 DIS Emergency [id number] 04/04/2013 20:11:00 04/04/2013 21:26:00 DIS Emergency [id number] 03/04/2013 13:16:00 03/04/2013 23:59:59 CLS Outpatient MAJOR, GAMALIEL BALLOON DESIGN PRINTER [facility] [id number] 08/21/2016 01:00:00 Document Registration [id number] 08/20/2016 23:48:00 Document Registration [id number] 11/16/2014 10:01:00 Document Registration [id number] 11/16/2014 10:01:00 Document Registration [id number] 11/16/2014 10:01:00 Document Registration [id number] 11/16/2014 10:01:00 Document Registration [id number] 11/16/2014 10:01:00 Document Registration [id number] 11/16/2014 10:01:00 Document Registration [id number] 11/16/2014 10:01:00 Document Registration [id number] 11/16/2014 10:01:00 Document Registration [id number] 11/16/2014 10:01:00 Document Registration [id number] 11/16/2014 10:01:00 Document Registration [id number] 11/16/2014 10:01:00 Document Registration [id number] 11/16/2014 10:01:00 Document Registration [id number] 11/16/2014 10:01:00 Document Registration [id number] 11/16/2014 10:01:00 Document Registration [id number] 11/16/2014 10:01:00 Document Registration [id number] 08/26/2011 09:52:00 Document Registration [id number] 05/09/2011 17:28:00 Document Registration [id number] 03/20/2011 15:01:00 Document Registration [id number] 12/06/2010 22:29:00 Document Registration [id number] 01/22/2010 14:40:00 Document Registration
[2017-12-07 19:24] LABS: BILIRUBIN,URINE NEGATIVE (NEGATIVE); CLARITY,URINE SLIGHTLY CLOUDY; COLOR,URINE YELLOW; GLUCOSE, URINE (UA) NEGATIVE (NEGATIVE); KETONES,URINE NEGATIVE (NEGATIVE); LEUKOCYTE ESTERASE ,URINE 2+ (NEGATIVE); NITRITE,URINE NEGATIVE (NEGATIVE); PH,URINE 7 (5-9); PROTEIN,URINE NEGATIVE (NEGATIVE); UROBILINOGEN,URINE 1 MG/DL (NORMAL)
--- NOTE | 2017-12-07 19:27 | ED GU-Female ---
General Chief Complaint: -Female Stated Complaint: UTI Nursing Triage Note: pt c/o pain with urination starting this morning. also c/o nausea. Nursing Sepsis Screen: No Definite Risk Source: patient, other Exam Limitations: no limitations History of Present Illness Date Seen by Provider: Dec 07, 2017 Time Seen by Provider: 19:16 Initial Comments Patient presents to ER by private conveyance with a chief complaint that she is for one day now been experiencing painful urination and nausea which is consistent with urinary tract infection for her. Until she got with her first child she had not really had many UTIs but during and since that time she has had multiple UTIs. She is followed with Dr. Rondon but she has not talk to him about this yet and has not made any follow-up with urology. She says typically when she has these urinary tract symptoms she will just drink cranberry juice and it seems that that we will cure it but it always comes back. This time she does not feel that the cranberry juice helped instead it made it worse. She has been drinking lots of fluids. She has not vomited yet. She is not having any fevers, diarrhea or abdominal pain. Allergies and Home Medications Allergies Coded Allergies: No Known Drug Allergies (Unverified , 09/26/17) Home Medications Cephalexin 500 Mg Capsule, 500 MG PO TID, #21 Ref 0 Prescribed by: JAMEY KRAFT on 09/26/17 1855 Hydroxyzine Pamoate 25 Mg Capsule, 25 MG PO Q6H PRN for ANXIETY, #30 Ref 0 Prescribed by: BRENDA KIRBY on 06/17/17 0131 Naproxen 500 Mg Tablet, 500 MG PO BID PRN for PAIN-MODERATE TO SEVERE, #30 Prescribed by: GLO BLOOM on 10/23/17 1742 Ondansetron 4 Mg Tab.rapdis, 4 MG SL Q4H PRN for NAUSEA/VOMITING-1ST LINE, #10 Prescribed by: EMILEE SAGASTUME on 10/30/17 0213 Penicillin V Potassium 500 Mg Tablet, 500 MG PO QID, #28 Prescribed by: GLO BLOOM on 10/23/17 1742 Phenazopyridine HCl 100 Mg Tablet, 1-2 TAB PO TID PRN for pain, #14 Ref 1 Prescribed by: JAMEY KRAFT on 09/26/17 1855 Constitutional: No chills, No diaphoresis, No fever, No malaise EENTM: No ear discharge, No hearing loss Respiratory: No cough Cardiovascular: No chest pain, No palpitations Gastrointestinal: No abdominal pain, No constipation, No diarrhea, nausea, No vomiting Genitourinary: burning, denies discharge, dysuria : No (Urine test at home today negative) Past Apqfwkz-Mbbhei-Kvacxh Hx Patient Social History Alcohol Use: Denies Use Smoking Status: Current Everyday Smoker Type Used: Cigarettes Former Smoker, Quit: Jun 30, 2017 2nd Hand Smoke Exposure: No Recent Foreign Travel: No Contact w/Someone Who Travel: No Recent Infectious Disease Expo: No Recent Hopitalizations: No Immunizations Up To Date Tetanus Booster (TDap): Unknown PED Vaccines UTD: No Date of Influenza Vaccine: Oct 04, 2016 Seasonal Allergies Seasonal Allergies: Yes Surgeries History of Surgeries: No Respiratory History of Respiratory Disorde: Yes (WINTER INDUCED ASTHMA) Respiratory Disorders: Asthma Currently Using CPAP: No Currently Using BIPAP: No Cardiovascular History of Cardiac Disorders: No Neurological History of Neurological Disord: No Reproductive System Last Menstrual Period: Nov 20, 2017 Hx Reproductive Disorders: No Sexually Transmitted Disease: Yes HIV/AIDS: No Female Reproductive Disorders: Denies Genitourinary History of Genitourinary Disor: Yes Genitourinary Disorders: UTI-Chronic Gastrointestinal History of Gastrointestinal Di: Yes Gastrointestinal Disorders: Gastroesophageal Reflux Musculoskeletal History of Musculoskeletal Dis: No Endocrine History of Endocrine Disorders: No HEENT History of HEENT Disorders: No Cancer History of Cancer: No Psychosocial History of Psychiatric Problem: Yes Behavioral Health Disorders: Anxiety Integumentary History of Skin or Integumenta: No Blood Transfusions History of Blood Disorders: No Family Medical History Significant Family History: No Pertinent Family Hx Family Medial History: Family history: Asthma 03 MOTHER Family history: Diabetes mellitus (type 2 diabetes) 03 MOTHER History of - disorder (anxiety, Brother has heart murmur) 03 MOTHER Physical Exam Vital Signs Vital Signs - First Documented 12/07/17 18:07 Temp 98.3 Pulse 81 Resp 16 B/P (MAP) 102/53 (69) Capillary Refill : Less Than 3 Seconds General Appearance: WD/WN, no apparent distress HEENT: PERRL/EOMI, pharynx normal Extremities: normal range of motion, normal inspection, no pedal edema Neurologic/Psychiatric: alert, oriented x 3 Skin: normal color, warm/dry Progress/Results/Core Measures Suspected Sepsis Recent Fever Within 48 Hours: No Infection Criteria Present: Suspected New Infection New/Unexplained Altered Menta: No Sepsis Screen: No Definite Risk Sepsis Diagnosis: SIRS Temperature:98.3 Pulse: 81 Respiratory Rate: 16 Blood Pressure 102 /53 Mean: 69 Results/Orders Lab Results Laboratory Tests Test 12/07/17 19:10 Range/Units Urine Color YELLOW Urine Clarity SLIGHTLY CLOUDY Urine pH 7 5-9 Urine Specific Lisman 1.015 L 1.016-1.022 Urine Protein NEGATIVE NEGATIVE Urine Glucose (UA) NEGATIVE NEGATIVE Urine Ketones NEGATIVE NEGATIVE Urine Nitrite NEGATIVE NEGATIVE Urine Bilirubin NEGATIVE NEGATIVE Urine Urobilinogen 1 NORMAL MG/DL Urine Leukocyte Esterase 2+ H NEGATIVE Urine RBC (Auto) NEGATIVE NEGATIVE Urine RBC NONE /HPF Urine WBC 50-100 H /HPF Urine Squamous Epithelial Cells 5-10 /HPF Urine Crystals NONE /LPF Urine Bacteria FEW H /HPF Urine Casts NONE /LPF Urine Mucus NEGATIVE /LPF Urine Culture Indicated YES My Orders Orders - BRENDA KIRBY Ondansetron Oral Dissolve Tab (Zofran (12/07/17 19:30) Vital Signs/I&O Vital Sign - Last 12Hours 12/07/17 18:07 Temp 98.3 Pulse 81 Resp 16 B/P (MAP) 102/53 (69) Capillary Refill : Less Than 3 Seconds Blood Pressure Mean: 69 Departure Impression Impression: Primary Impression: Urinary tract infection Qualified Codes: N30.00 - Acute cystitis without hematuria Disposition: 01 HOME, SELF-CARE Condition: Stable Departure-Patient Inst. Decision time for Depature: 19:42 Referrals: NO,LOCAL PHYSICIAN (PCP/Family) Primary Care Physician Patient Instructions: Urinary Tract Infection, Adult (DC) Add. Discharge Instructions: If you feel that your urinary tract infections are becoming more recurrent then you should consider follow-up with Dr. Wei and discuss whether a urology consult would be appropriate to look for an anatomical cause of your frequent UTIs after childbirth. Drink lots and lots of fluids to try and flush your kidneys out. support services rep the Macrobid and take one capsule twice a day for 7 days. All discharge instructions reviewed with patient and/or family. Voiced understanding. Scripts Nitrofurantoin Monohyd/M-Cryst (Macrobid 100 mg Capsule) 100 Mg Capsule 1 TAB PO BID for 7 Days, #14 CAP 0 Refills Prov: BRENDA KIRBY 12/07/17 Copy Copies To 1: TATIANA WEI MD, TITUS J Dec 07, 2017 19:27
[2017-12-07] MEDS ORDERED: ONDANSETRON 4 MG (ZOFRAN) ORAL DISSOLVE TAB PO ONE (19:30)
[2017-12-07 19:33] LABS: BACTERIA,URINE FEW /HPF; WBC,URINE 50-100 /HPF
[2017-12-07] MEDS ORDERED: NITR-65 PO (19:44)
[2017-12-07 19:53] VITALS: BP 102/53
== END 2017-12-07 19:53 | disposition home or self-care (01) ==
LOC: EDUNIT# 17:41 → ER 17:43
DX: N39.0 Urinary tract infection, site not specified (principal); J45.909 Unspecified asthma, uncomplicated; K21.9 Gastro-esophageal reflux disease without esophagitis; F41.9 Anxiety disorder, unspecified; F17.210 Nicotine dependence, cigarettes, uncomplicated; Z87.440 Personal history of urinary (tract) infections
CPT/HCPCS: 81000; 87077; 87088; 87186; 99283

== ENCOUNTER 2017-12-20 16:58 | Emergency (ER) | payer MEDICAID ==
[~2017-12-20] VITALS: Ht 162.6 cm; Wt 53.1 kg
--- OUTSIDE RECORDS SUMMARY | 2017-12-20 17:13 | XMS REPORT | Continuity of Care Document ---
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 06/06/2016 21:08:00 06/06/2016 23:03:00 DIS Emergency GLO BLOOM APRN Via [facility] ER NAUSEA;DIZZINESS [id number] 05/30/2016 17:16:00 05/30/2016 23:59:59 CLS Outpatient KACEY SCRUGGS DO [facility] RAD CRAMPING [id number] 05/12/2016 18:43:00 05/12/2016 20:21:00 DIS Emergency JAMEY ROMAN [facility] ER ABD PAIN [id number] 04/26/2016 15:25:00 04/26/2016 18:28:00 DIS Emergency JAMEY ROMAN [facility] ER LATE PERIOD/KNOT IN ABD AREA [id number] 02/26/2016 21:34:00 02/26/2016 22:47:00 DIS Emergency OSVALDO VALENTIN MD [facility] ER [id number] 01/28/2016 13:32:00 01/28/2016 16:19:00 DIS Emergency JAMEY ROMAN [facility] ER [id number] 06/15/2015 17:54:00 06/15/2015 18:45:00 DIS Emergency GLO BLOOM APRN [facility] ER [id number] 10/31/2014 16:15:00 10/31/2014 17:20:00 DIS Emergency GLO BLOMO APRN [facility] ER [id number] 10/08/2014 21:47:00 10/08/2014 22:15:00 DIS Emergency JUVENAL ROGER MD [facility] ER [id number] 04/16/2014 21:59:00 04/16/2014 22:40:00 DIS Emergency GLO BLOOM APRN [facility] ER DIZZINESS LEFT SIDE PAIN [id number] 03/21/2014 14:30:00 03/21/2014 15:36:00 DIS Emergency [id number] 02/13/2014 23:05:00 02/13/2014 23:40:00 DIS Emergency HERNANDO SUNSHINE DO [facility] ER ABD PAIN [id number] 01/24/2014 01:45:00 01/26/2014 17:45:00 DIS Inpatient TATIANA WEI MD [facility] WS CTXS/ LABOR [id number] 01/22/2014 23:06:00 01/23/2014 00:20:00 DIS Outpatient SCRUGGS KACEY K [facility] CTXS [id number] 01/21/2014 16:02:00 01/21/2014 17:08:00 DIS Outpatient TATIANA WEI MD [facility] ABD PAIN [id number] 01/20/2014 23:16:00 01/21/2014 00:48:00 DIS Outpatient TATIANA WEI MD [facility] CONTRACTIONS,FLUID LEAKING [id number] 01/05/2014 16:57:00 01/05/2014 18:40:00 DIS Outpatient TATIANA WEI MD [facility] CONTRACTIONS [id number] 12/27/2013 15:52:00 12/27/2013 18:45:00 DIS Outpatient TATIANA WEI MD [facility] ABD PAIN; BACK PAIN [id number] 12/22/2013 21:16:00 12/22/2013 22:55:00 DIS Emergency GLO BLOOM APRN [facility] ER FELL OFF BED @ 34 WEEKS, HEAD PAIN [id number] 12/10/2013 23:40:00 12/11/2013 10:40:00 DIS Outpatient TATIANA WEI MD [facility] LOUD NOISES BOTHER PT, FEVER,COUGH,32 WKS PREG [id number] 12/10/2013 23:07:00 12/10/2013 23:37:00 DIS Emergency JUVENAL ROGER MD [facility] ER LOUD NOISES BOTHER PT, FEVER,COUGH [id number] 12/07/2013 06:15:00 12/07/2013 07:47:00 DIS Emergency HERNANDO SUNSHINE DO [facility] ER DIZZY,COUGHING,DIARRHEA [id number] 11/23/2013 13:22:00 11/23/2013 17:56:00 DIS Emergency JAMEY ROMAN [facility] ER LOW BLOOD SUGAR/FEVER 29 WKS PREG [id number] 10/27/2013 17:11:00 10/27/2013 20:00:00 DIS Outpatient TATIANA WEI MD [facility] C/O PREMATURE LABOR [id number] 10/23/2013 16:35:00 10/23/2013 18:15:00 DIS [facility] [id number] 10/05/2013 20:27:00 10/05/2013 21:46:00 DIS Emergency GLO BLOOM APRN [facility] ER N/V/D [id number] 09/23/2013 14:18:00 09/23/2013 23:59:59 CLS Outpatient TATIANA WEI MD [facility] RAD FUNDAL HEIGHT DISCREPENCY [id number] 09/03/2013 23:00:00 09/03/2013 23:30:00 DIS Emergency JONG HERNANDO Jake [facility] ER ALTERCATION,BACK PAIN [id number] 08/27/2013 18:08:00 08/27/2013 20:58:00 DIS Emergency OSVALDO VALENTIN MD [facility] ER FELL AT HOME; ABD PAIN ; L KNEE PAIN [id number] 08/21/2013 14:28:00 08/21/2013 16:21:00 DIS Emergency GLO BLOOM APRN Via [facility] ER 15 WKS; ABD PAIN [id number] 07/21/2013 14:51:00 07/21/2013 15:58:00 DIS Emergency [id number] 06/28/2013 15:38:00 06/28/2013 23:59:59 CLS Outpatient [id number] 05/09/2013 17:13:00 05/09/2013 19:04:00 DIS Emergency [id number] 04/30/2013 18:48:00 04/30/2013 21:44:00 DIS Emergency [id number] 04/04/2013 20:11:00 04/04/2013 21:26:00 DIS Emergency [id number] 03/04/2013 13:16:00 03/04/2013 23:59:59 CLS Outpatient MAJOR, GAMAL[employer]EL [employer] [facility] QUICK [id number] 12/20/2017 17:00:00 ACT Emergency ANGELICA LINCOLN, CAROLYN García [facility] ER ABD PAIN,VOMITING [id number] 08/21/2016 01:00:00 Document Registration [id number] 08/20/2016 23:48:00 Document Registration [id number] 11/16/2014 10:01:00 Document Registration [id number] 11/16/2014 10:01:00 Document Registration [id number] 11/16/2014 10:01:00 Document Registration [id number] 11/16/2014 10:01:00 Document Registration [id number] 11/16/2014 10:01:00 Document Registration [id number] 11/16/2014 10:01:00 Document Registration [id number] 11/16/2014 10:01:00 Document Registration [id number] 11/16/2014 10:01:00 Document Registration [id number] 11/16/2014 10:01:00 Document Registration [id number] 11/16/2014 10:01:00 Document Registration [id number] 11/16/2014 10:01:00 Document Registration [id number] 11/16/2014 10:01:00 Document Registration [id number] 11/16/2014 10:01:00 Document Registration [id number] 11/16/2014 10:01:00 Document Registration [id number] 11/16/2014 10:01:00 Document Registration [id number] 08/26/2011 09:52:00 Document Registration [id number] 05/09/2011 17:28:00 Document Registration [id number] 03/20/2011 15:01:00 Document Registration [id number] 12/06/2010 22:29:00 Document Registration [id number] 01/22/2010 14:40:00 Document Registration
--- NOTE | 2017-12-20 17:52 | ED GI ---
General Chief Complaint: Abdominal/GI Problems Stated Complaint: ABD PAIN,VOMITING Nursing Triage Note: AMB TO ROOM WITH C/O NAUSEA AFTER EATING AT [employer] YESTERDAY. VOMITED X1 YESTERDAY.ALSO REPORTS HAS NOT GOT FOLLOW UP WITH DR WEI FOR UTI WHEN LAST SEEN IN ED. PATIENT TALKING AND LAUGHING WITH CHILDREN WITH HER. Sepsis Screen: No Definite Risk Source of Information: Patient, Family Exam Limitations: No Limitations History of Present Illness Date Seen by Provider: Dec 20, 2017 Time Seen by Provider: 17:49 Initial Comments This 20-year-old female presents after becoming nauseated when she ate at [employer] yesterday patient vomited once yesterday and has continued to have some nausea today. Patient had a recent urinary tract infection last seen in the emergency department and has not followed through with her primary care physician, . She denies hematemesis, fever or chill, dysuria, frequency, flank pain, cough or shortness of breath, headache, stiff neck, or photophobia. Allergies and Home Medications Allergies Coded Allergies: No Known Drug Allergies (Unverified , 09/26/17) Home Medications Cephalexin 500 Mg Capsule, 500 MG PO TID Prescribed by: JAMEY KRAFT on 09/26/171854 Hydroxyzine Pamoate 25 Mg Capsule, 25 MG PO Q6H PRN for ANXIETY Prescribed by: BRENDA KIRBY on 06/17/17 0131 Naproxen 500 Mg Tablet, 500 MG PO BID PRN for PAIN-MODERATE TO SEVERE Prescribed by: GLO BLOOM on 10/23/17 174 Nitrofurantoin Monohyd/M-Cryst 100 Mg Capsule, 1 TAB PO BID Prescribed by: BRENDA KIRBY on 12/07/17 194 Ondansetron 4 Mg Tab.rapdis, 4 MG SL Q4H PRN for NAUSEA/VOMITING-1ST LINE Prescribed by: EMILEE SAGASTUME on 10/30/17 0213 Penicillin V Potassium 500 Mg Tablet, 500 MG PO QID Prescribed by: GLO BLOOM on 10/23/17 174 Phenazopyridine HCl 100 Mg Tablet, 1-2 TAB PO TID PRN for pain Prescribed by: JAMEY KRAFT on 09/26/17 185 Patient Home Medication List Home Medication List Reviewed: Yes Review of Systems Constitutional: No chills, No fever EENTM: No Blurred Vision, No Ear Pain Respiratory: Denies Cough Gastrointestinal: Abdominal Pain, Denies Diarrhea, Nausea, Vomiting Genitourinary: Denies Burning, Denies Frequency Musculoskeletal: No back pain Skin: No rash Psychiatric/Neurological: No Symptoms Reported Endocrine: No Symptoms Reported Hematologic/Lymphatic: No Symptoms Reported Past [place] Hx Patient Social History Alcohol Use: Denies Use Recreational Drug Use: No Smoking Status: Current Everyday Smoker Type Used: Cigarettes Former Smoker, Quit: Jun 30, 2017 2nd Hand Smoke Exposure: No Recent Foreign Travel: No Contact w/Someone Who Travel: No Recent Infectious Disease Expo: No Recent Hopitalizations: No Immunizations Up To Date Tetanus Booster (TDap): Unknown PED Vaccines UTD: No Date of Influenza Vaccine: Oct 04, 2016 Seasonal Allergies Seasonal Allergies: Yes Surgeries History of Surgeries: No Respiratory History of Respiratory Disorde: Yes (WINTER INDUCED ASTHMA) Respiratory Disorders: Asthma Currently Using CPAP: No Currently Using BIPAP: No Cardiovascular History of Cardiac Disorders: No Neurological History of Neurological Disord: No Reproductive System Hx Reproductive Disorders: No Sexually Transmitted Disease: Yes HIV/AIDS: No Female Reproductive Disorders: Denies Genitourinary History of Genitourinary Disor: Yes Genitourinary Disorders: UTI-Chronic Gastrointestinal History of Gastrointestinal Di: Yes Gastrointestinal Disorders: Gastroesophageal Reflux Musculoskeletal History of Musculoskeletal Dis: No Endocrine History of Endocrine Disorders: No HEENT History of HEENT Disorders: No Cancer History of Cancer: No Psychosocial History of Psychiatric Problem: Yes Behavioral Health Disorders: Anxiety Integumentary History of Skin or Integumenta: No Blood Transfusions History of Blood Disorders: No Reviewed Nursing Assessment Reviewed/Agree w Nursing PMH: Yes Family Medical History Significant Family History: No Pertinent Family Hx Family Medial History: Family history: Asthma 03 MOTHER Family history: Diabetes mellitus (type 2 diabetes) 03 MOTHER History of - disorder (anxiety, Brother has heart murmur) 03 MOTHER Physical Exam Vital Signs VS - Last 72 Hours, by Label 12/20/17 17:24 Temp 97.9 Pulse 79 Resp 18 B/P (MAP) 118/71 (87) Pulse Ox 100 Capillary Refill : Less Than 3 Seconds General Appearance: WD/WN, no apparent distress HEENT: normal ENT inspection Neck: normal inspection Respiratory: chest non-tender, lungs clear, normal breath sounds, no respiratory distress Cardiovascular: normal peripheral pulses, regular rate, rhythm Gastrointestinal: normal bowel sounds, non tender, soft Extremities: normal range of motion, non-tender, normal inspection Back: normal inspection Neurologic/Psychiatric: no motor/sensory deficits, alert, normal mood/affect Skin: normal color, warm/dry Progress/Results/Core Measures Results/Orders Lab Results Laboratory Tests Test 12/20/17 17:58 Range/Units Urine Color YELLOW Urine Clarity CLEAR Urine pH 8 5-9 Urine Specific [place] 1.015 L 1.016-1.022 Urine Protein NEGATIVE NEGATIVE Urine Glucose (UA) NEGATIVE NEGATIVE Urine Ketones NEGATIVE NEGATIVE Urine Nitrite NEGATIVE NEGATIVE Urine Bilirubin NEGATIVE NEGATIVE Urine Urobilinogen NORMAL NORMAL MG/DL Urine Leukocyte Esterase 2+ H NEGATIVE Urine RBC (Auto) NEGATIVE NEGATIVE Urine RBC RARE /HPF Urine WBC 10-25 H /HPF Urine Squamous Epithelial Cells 5-10 /HPF Urine Crystals NONE /LPF Urine Bacteria NEGATIVE /HPF Urine Casts NONE /LPF Urine Mucus NEGATIVE /LPF Urine Culture Indicated YES My Orders Orders - CAROLYN DOMINGUEZ MD Ondansetron Oral Dissolve Tab (Zofran (12/20/17 18:00) Ua Culture If Indicated (12/20/17 17:52) Acetaminophen Tablet (Tylenol Tablet) (12/20/17 18:00) Urine Culture (12/20/17 17:58) Medications Given in ED Current Medications Medications Dose Ordered Sig/Adelita Route Start Time Stop Time Status Last Admin Dose Admin Acetaminophen 1,000 mg ONCE ONCE PO 12/20/17 18:00 12/20/17 18:01 DC 12/20/17 18:11 1,000 MG Ondansetron HCl 4 mg ONCE ONCE PO 12/20/17 18:00 12/20/17 18:01 DC 12/20/17 18:11 4 MG Vital Signs/I&O Vital Sign - Last 12Hours 12/20/17 17:24 Temp 97.9 Pulse 79 Resp 18 B/P (MAP) 118/71 (87) Pulse Ox 100 Blood Pressure Mean: 87 Progress Note : Time: 18:26 Progress Note Patient's nausea abated with the Zofran. Patient's urine demonstrated a UTI. Patient does not remember the antibiotic that was prescribed for her previous urinary tract infection. We'll place the patient on Macrobid and Zofran. I asked that she follow-up with her doctor on Friday. Departure Impression Impression: Primary Impression: Nausea and vomiting Qualified Codes: R11.2 - Nausea with vomiting, unspecified Additional Impression: Urinary tract infection Qualified Codes: N30.00 - Acute cystitis without hematuria Disposition: HOME, SELF-CARE Condition: Improved Departure-Patient Inst. Decision time for Depature: 18:28 Referrals: TATIANA WEI MD (PCP/Family) Primary Care Physician Patient Instructions: Acute Cystitis (DC) Add. Discharge Instructions: Macrobid and Zofran as prescribed. Close follow-up with your doctor on Friday. Return for any problems or questions. All discharge instructions reviewed with patient and/or family. Voiced understanding. CAROLYN DOMINGUEZ MD Dec 20, 2017 17:52
[2017-12-20] MEDS ORDERED: ONDANSETRON 4 MG (ZOFRAN) ORAL DISSOLVE TAB PO ONE (18:00)
[2017-12-20] MEDS ORDERED: ACETAMINOPHEN 500 MG TAB (TYLENOL) PO ONE (18:00)
[2017-12-20 18:04] LABS: BILIRUBIN,URINE NEGATIVE (NEGATIVE); CLARITY,URINE CLEAR; COLOR,URINE YELLOW; GLUCOSE, URINE (UA) NEGATIVE (NEGATIVE); KETONES,URINE NEGATIVE (NEGATIVE); LEUKOCYTE ESTERASE ,URINE 2+ (NEGATIVE); NITRITE,URINE NEGATIVE (NEGATIVE); PH,URINE 8 (5-9); PROTEIN,URINE NEGATIVE (NEGATIVE); UROBILINOGEN,URINE NORMAL (NORMAL)
[2017-12-20 18:20] LABS: BACTERIA,URINE NEGATIVE /HPF; RBC,URINE RARE /HPF
[2017-12-20] MEDS ORDERED: RX-ONDANSETRON 4 MG ODT (ZOFRAN) PPK #4 PO STA (18:32)
[2017-12-20] MEDS ORDERED: RX-NITROFURANTOIN 100 MG (MACROBID) CAP PPK#2 PO STA (18:32)
[2017-12-20 18:40] VITALS: BP 118/71
== END 2017-12-20 18:42 | disposition home or self-care (01) ==
LOC: EDUNIT# 16:58 → ER 17:00
DX: N39.0 Urinary tract infection, site not specified (principal); R11.2 Nausea with vomiting, unspecified; F41.9 Anxiety disorder, unspecified; K21.9 Gastro-esophageal reflux disease without esophagitis; J45.909 Unspecified asthma, uncomplicated; Z87.891 Personal history of nicotine dependence
CPT/HCPCS: 81000; 87088; 99283

== ENCOUNTER 2018-01-05 15:23 | Emergency (ER) | payer MEDICAID ==
[~2018-01-05] VITALS: Ht 160 cm; Wt 51.7 kg
[~2018-01-05 15:23] MED LIST changes: +METR500T PO
--- OUTSIDE RECORDS SUMMARY | 2018-01-05 16:22 | XMS REPORT ---
Author Author ALISIA HOOKS Organization [facility] Address [address] [place] [address] Care Team Providers Care Communications Programmer Name Role Phone ALISIA HOOKS Unavailable PROBLEMS Type Condition ICD9-CM Code EZH31-RR Code Onset Dates Condition Status SNOMED Code Problem Mood disorder F39 Active 54649363 Problem Adjustment disorder with anxiety F43.22 Active 98276032 Problem Bipolar 1 disorder, manic, mild F31.11 Active 46005836 Problem Adjustment disorder with depressed mood F43.21 Active 525095859 Problem Normal in second trimester Z34.92 Active 37440387 Problem Normal in first trimester Z34.91 Active [id number] ALLERGIES No Information ENCOUNTERS Encounter Location Date Diagnosis [facility] [address] [address] Dec, Seasonal allergic rhinitis, unspecified trigger J30.2 and Sore throat J02.9 [facility] [address] [address] Oct, Mood disorder F39 [place] [address] [address] Oct, Mood disorder F39 [facility] [address] [address] Sep, Adjustment disorder with depressed mood F43.21 ; Screening cholesterol level Z13.220 and Screening for diabetes mellitus Z13.1 [facility] [address] [address] Sep, Adjustment disorder with anxiety F43.22 and Adjustment disorder with depressed mood F43.21 [facility] [address] [address] Aug, Pharyngitis due to other organism J02.8 [facility] [id number] [place] [address] 10 Aug, 2017 Sore throat J02.9 and Acute nasopharyngitis (common cold) J00 [facility] [address] [address] Mar, Acute nasopharyngitis J00 [place] [address] [place] [id number] [place] [address]44- 4264 07 Mar, 2017 Adjustment disorder with anxiety F43.22 ; Adjustment disorder with depressed mood F43.21 and Bipolar 1 disorder, manic, mild F31.11 [place] [address] [place] [id number] [place] [address] 30662- 3019 Mar, [place] [address] [place] [id number] [place] [address] 96697- 5176 08 Nov, 2016 39 weeks gestation of Z3A.39 [place] [address] [place] [id number] [place] [address] 6[address]01- 1097 Nov, care in third trimester Z34.93 [place] [address] [place] [id number] [place] [address] 89801- 4308 Oct, Normal in third trimester Z34.93 [place] [address] [place] [id number] [place] [address] 49153- 7743 Oct, [place] [address] [place] [id number] [place] [address] 87409- 0597 Oct, Third trimester at less than 36 weeks Z33.1 [place] [address] [place] [id number] [place] [address] 77783- 6603 Oct, [facility] [address] [id number] Oct, [place] [address] [place] [id number] [place] [address] 71459- 0817 Oct, Normal in third trimester Z34.93 [facility] [address] [place] [id number] [place] [address] 14005- 6547 Sep, Normal in third trimester Z34.93 [place] [address] [place] [id number] [place] [address] 75426- 9071 Sep, Third trimester at less than 36 weeks Z33.1 and Encounter for immunization Z23 [place] [address] [address] Aug, Adjustment disorder with anxiety F43.22 and Adjustment disorder with depressed mood F43.21 [place] [address] [place] [id number] [place] [address] 29678- 2841 Aug, Abnormal glucose tolerance test in O99.810 [place] [address] [place] [id number] [place] [address] 57023- 1828 Aug, [place] [address] [place] [id number] [place] [address] 60756- 6940 Aug, Normal in second trimester Z34.92 [facility] [address] [place] [id number] [place] [address]67 [address] Aug, Acute upper respiratory infection, unspecified J06.9 and Other viral agents as the cause of diseases classified elsewhere B97.89 [place] [address] [place] [id number] [place] [address] 88793- 2193 Jul, Adjustment disorder with depressed mood F43.21 and Bipolar 1 disorder, manic, mild F31.11 [place] [address] [place] [id number] [place] [address] 38784- 4730 Jul, Bipolar 1 disorder, manic, mild F31.11 ; Adjustment disorder with anxiety F43.22 and Adjustment disorder with depressed mood F43.21 [place] [address] [place] [address] 73448- 4283 Jul, Normal in second trimester Z34.92 [facility] [address] [place] [id number] [place] [address] 0[address]25 [address]67 Jul, Contact dermatitis, unspecified contact dermatitis type, unspecified trigger L25.9 [place] [address] [place] [id number] [place] [address] 66633- 5016 Jul, Adjustment disorder with depressed mood F43.21 ; Adjustment disorder with anxiety F43.22 and Bipolar 1 disorder, manic, mild F31.11 [place] [address] [place] [id number] [place] [address] 19065- 3217 Jul, Adjustment disorder with depressed mood F43.21 and Bipolar 1 disorder, manic, mild F31.11 [place] [address] 45[address]- 2215 26 Jun, 2016 Adjustment disorder with depressed mood F43.21 and Bipolar 1 disorder, manic, mild F31.11 [place] [address] 89168- 6072 Jun, Adjustment disorder with depressed mood F43.21 ; Bipolar 1 disorder, manic, mild F31.11 and Anxiety, generalized F41.1 [place] [address] [place] [id number] [place] [address] 39326- 0319 Jun, Normal in second trimester Z34.92 ; 18 weeks gestation of Z3A.18 and Encounter for immunization Z23 [place] [address] [place] [id number] [place] [address] 80830- 1754 07 Jun, 2016 Normal in first trimester Z34.91 [place] [address] [place] [id number] [place] [address] 39268- 0605 May, care in second trimester Z34.92 [place] [address] 17197- 8317 May, [place] [address] 75848- 7680 May, [place] [address] [place] [id number] [place] [address] 79925- 9275 May, Major depressive disorder, recurrent, moderate F33.1 [place] [address] [address] 10 May, 2016 Normal in first trimester Z34.91 ; Pap smear for cervical cancer screening Z12.4 ; Screen for STD (sexually transmitted disease) Z11.3 and 12 weeks gestation of Z3A.12 [place] [address] [address] 08 May, 2016 12 weeks gestation of Z3A.12 ; Unspecified abdominal pain R10.9 and Other specified related conditions, unspecified trimester O26.899 [place] [address] [place] [id number] [place] [address] 10019- 0231 Apr, [place] [address] [place] [id number] [place] [address] 40358- 2115 Apr, [place] [address] [place] [id number] [place] [address] 91192- 4638 February, [place] [address] [place] [id number] [place] [address] 28893- 6827 February, Bipolar 1 disorder, manic, mild F31.11 and Adjustment disorder with depressed mood F43.21 [place] [address] [place] [address] 79852- 6013 Dec, Major depressive disorder, single episode, moderate F32.1 ; Adjustment disorder with depressed mood F43.21 and Bipolar 1 disorder, manic, mild F31.11 [place] [address] [place] [address] 93599- 6464 Dec, Adjustment disorder with depressed mood F43.21 ; Major depressive disorder, single episode, moderate F32.1 and Bipolar 1 disorder, manic, mild F31.11 [place] [address] [address] Dec, Right hand pain M79.641 [place] [address] [place] [address] 76652- 9250 Dec, Major depressive disorder, single episode, moderate F32.1 and Adjustment disorder with depressed mood F43.21 [place] [address] [place] [id number] [place] [address] 52701- 8812 Nov, Major depressive disorder, single episode, moderate F32.1 [place] [address] [place] [id number] [place] [address] 81080- 7183 22 Nov, 2015 Adjustment disorder with depressed mood F43.21 ; Bipolar 1 disorder, manic, mild F31.11 and Adjustment disorder with anxiety F43.22 [place] [address] [place] [id number] [place] [address] 42576- 6129 Oct, [address] [address] Oct, Encounter for counseling regarding contraception Z30.9 ; Initiation of OCP (BCP) Z30.011 ; Routine screening for STI (sexually transmitted infection) Z11.3 and Dysmenorrhea N94.6 [place] [id number] [place] [address] 95500- 4527 Sep, Acute upper respiratory infection, unspecified J06.9 ; Other viral agents as the cause of diseases classified elsewhere B97.89 and Post -nasal drip R09.82 [place] [id number] [place] [address] 15605- 7105 Aug, Depressive disorder, not elsewhere classified [address] [place] [id number] [place] [address] 07435- 2161 Jul, Depression, major, recurrent, moderate F33.1 [place] [id number] [place] [address] 93544- 8153 Jun, Major depressive disorder, recurrent episode, moderate 296.32 [place] [address] [place] [address] 46159- 1226 04 Mar, 2015 Major depression, recurrent 296.30 [place] [id number] [place] [address] 54561- 0067 14 Jan, 2015 [facility] [place] [facility] [address] [id number] [place] [address]- 2659 Jan, [facility] [place] [facility] [address] [id number] [place] [address]- 8285 Dec, [facility] [place] [facility] [address] [id number] [place] [address]- 7713 Dec, [facility] [place] [facility] [address] [id number] [place] [address]- 1680 Nov, [facility] [place] [facility] [address] [id number] [place] [address]- 8883 Nov, [facility] [place] [facility] [address] [id number] [place] [address]- 6007 Oct, [facility] [place] [facility] [address] [id number] [place] [address]- 8662 Oct, [facility] [place] [facility] [address] [id number] [place] [address]- 9204 Sep, [facility] [place] [facility] [address] [id number] [place] [address]- 0813 Sep, [facility] [place] [facility] [address] [id number] [place] [address]- 1612 Sep, [facility] [place] [facility] [address] [id number] [place] [address]- 9410 Sep, [facility] [place] [facility] [address] [id number] [address]- 3566 Sep, [facility] [place] [facility] [address] [id number] [place] [address]- 6752 Sep, [facility] [place] [facility] [address] [id number] [place] [address]- 1607 Aug, [facility] [place] [facility] [address] [id number] [place] [address]- 6084 Aug, [facility] [place] [facility] [address] [id number] [place] [address]- 2851 Aug, [facility] [place] [facility] [address] [id number] [place] [address]- 7830 Aug, [facility] [place] [facility] [address] [id number] [place] [address] Jul, [facility] [place] [facility] [address] [id number] [place] [address]- 0250 Jul, [facility] [place] [facility] [address] [id number] [place] [address]- 1686 Jul, [facility] [place] [facility] [address] [id number] [place] [address]- 7672 Jul, [facility] [place] [facility] [address] [id number] [place] [address]- 3226 Jun, [facility] [place] [facility] [address] [id number] [place] [address]- 1568 Jun, [facility] [place] [facility] [address] [id number] [place] [address]- 3066 Jun, [facility] [place] [facility] [address] [id number] [place] [address]- 6855 Jun, [facility] [place] [facility] [address] [id number] [place] [address]- 2874 Apr, [facility] [place] [facility] [address] [id number] [place] [address]- 0590 Apr, [facility] [place] [facility] [address] [id number] [place] [address]- 3521 Mar, [facility] [place] [facility] [address] [id number] [place] [address]- 2128 Mar, [facility] [place] [facility] [address] [id number] [place] [address]- 7230 Mar, [facility] [place] [facility] [address] [id number] [place] [address]- 6202 Mar, [facility] [place] [facility] [address] [id number] [place] [address]- 4659 February, [facility] [place] [facility] [address] [id number] [place] [address]- 6432 February, [facility] [place] [facility] [address] [id number] [place] [address]- 5484 February, [facility] [place] [facility] [address] [id number] [place] [address]- 9231 February, [facility] [place] [facility] [address] [id number] [place] [address]- 6903 February, [facility] [place] [facility] [address] [id number] [place] [address]- 1758 February, [facility] [place] [facility] [address] [id number] [place] [address]- 4199 February, [facility] [place] [facility] [address] [id number] [place] [address]- 6518 Jan, [facility] [place] [facility] [address] [id number] [place] [address]- 8175 Jan, [facility] [place] [facility] [address] [id number] [place] [address]- 9712 Jan, [facility] [place] [facility] [address] [id number] [place] [address]- 5826 Jan, [facility] [place] [facility] [address] [id number] [place] [address]- 0889 Jan, [facility] [place] [facility] [address] [id number] [place] [address]- 0627 Jan, [facility] [place] [facility] [address] [id number] [place] [address]- 1235 Jan, [facility] [place] [facility] [address] [id number] [place] [address]- 7036 Jan, [facility] [place] [facility] [address] [id number] [place] [address]- 2939 14 Oct, 2013 [facility] [address] [id number] [place] [address]- 2659 14 Oct, 2013 [facility] [place] [facility] [address] [id number] [place] [address]90 31 Sep, 2013 [facility] [place] [facility] [address] [id number] [place] [address]- 4057 31 Sep, 2013 [facility] [place] [facility] [address] [id number] [place] [address]- 8421 11 Jun, 2013 [facility] [place] [facility] [address] [id number] [place] [address]- 2588 04 Jun, 2013 [facility] [place] [facility] [address] [id number] [place] [address]- 2798 27 Oct, 2012 [facility] [place] [facility] [address] [id number] [place] [address]- 5505 08 Sep, 2012 [facility] [place] [facility] [address] [id number] [place] [address]- 3626 08 Sep, 2012 [facility] [place] [facility] [address] [id number] [place] [address]- 8273 26 Jun, 2012 [facility] [place] [facility] [address] [id number] [place] [address]- 4145 25 Jun, 2012 [facility] [place] [facility] [address] [id number] [place] [address]- 0678 24 Jun, 2012 [facility] [place] [facility] [address] [id number] [place] [address] 2543 20 Jun, 2012 [facility] [place] [facility] [address] [id number] [place] [address] 2543 20 Jun, 2012 [facility] [place] [facility] [address] [id number] [place] [address]- 5911 05 Jun, 2012 [facility] [place] [facility] [address] [id number] [place] [address]- 2969 12 Apr, 2012 [facility] [place] [facility] [address] [id number] [place] [address]- 8495 29 Mar, 2012 [facility] [address] [id number] [place] [address]- 8921 Mar, [facility] [address] [id number] [place] [address]- 3728 16 Dec, 2011 [facility] [address] [facility] [id number] [place] [address], [place] [address]- 8045 Oct, [facility] [address] [id number] [place] [address]- 1171 15 Aug, 2011 [facility] [address] [facility] [id number] [place] [address], [place] [address]- 7443 Aug, [facility] [address] [facility] [id number] [place] [address]- 9607 Aug, [facility] [id number] [place] [address], [place] [address]- 8090 Aug, [facility] [address] [facility] [id number] [place] [address]- 6076 Aug, [facility] [id number] [place] [address]- 1895 24 Jul, [address] [facility] [address] [facility] [id number] [place] [address]- 0567 Jul, [facility] [address] [facility] [id number] [place] [address]- 9983 15 Jun, 2011 [facility] [address] [facility] [id number] [place] [address]- 2377 29 Jul, 2010 [facility] [address] [facility] [id number] [place] [address]- 8321 17 Aug, 2008 [facility] [address] [facility] [id number] [place] [address]- 0691 14 Aug, 2008 [facility] [address] [facility] [id number], [place] [address]- 6157 Oct, IMMUNIZATIONS No Known Immunizations SOCIAL HISTORY Never Assessed REASON FOR VISIT f/u PLAN OF CARE Activity Details Follow Up Not rescheduled Reason:Bipolar I and Adjustment diorder VITAL SIGNS MEDICATIONS No Known Medications RESULTS No Results PROCEDURES Procedure Date Ordered Result Body Site Psychotherapy, patient &/family, 30 minutes, established patient March 26, 2017 INSTRUCTIONS MEDICATIONS ADMINISTERED No Known Medications MEDICAL (GENERAL) HISTORY Type Description Date Medical History Adjustment disorder with mixed disturbance of emotions and conduct Medical History Major depressive disorder, recurrent episode, moderate (past) Medical History Adjustment disorder with depressed mood (past) Medical History iron deficiency Medical History Bipolar Surgical History 2 natural births Hospitalization History childbirth 01/2014
--- NOTE | 2018-01-05 17:23 | ED Cough/URI ---
General Chief Complaint: Cough/Cold/Flu Symptoms Stated Complaint: FEVER Nursing Triage Note: ARRIVED VIA AMB TO ROOM 08. COMPLAINS OF FEVER, COUGH, AND TROUBLE BREATHING AT NOC. HAS NOT TAKEN ANYTHING FOR THE FEVER BECAUSE SHE RAN OUT OF TYLENOL. Source: patient Exam Limitations: no limitations History of Present Illness Date Seen by Provider: Jan 05, 2018 Time Seen by Provider: 16:40 Initial Comments This 22-year-old young lady presents to the emergency room with complaints of cough and cold symptoms including intermittent fever today, congestion, sore throat, and cough. Symptoms started at some point yesterday. Vital signs are within normal limits at this time and she is in no distress. Allergies and Home Medications Allergies Coded Allergies: No Known Drug Allergies (Unverified , 09/26/17) Home Medications No Active Prescriptions or Reported Meds Patient Home Medication List Home Medication List Reviewed: Yes Constitutional: see HPI EENTM: see HPI Respiratory: see HPI Cardiovascular: no symptoms reported Gastrointestinal: no symptoms reported Genitourinary: no symptoms reported : No Musculoskeletal: no symptoms reported Skin: no symptoms reported Psychiatric/Neurological: No Symptoms Reported Hematologic/Lymphatic: No Symptoms Reported Past Qlewsmf-Vjmpqe-Rilnaf Hx Patient Social History Alcohol Use: Denies Use Recreational Drug Use: No Smoking Status: Current Everyday Smoker Type Used: Cigarettes Former Smoker, Quit: Jun 30, 2017 2nd Hand Smoke Exposure: No Recent Foreign Travel: No Contact w/Someone Who Travel: No Recent Infectious Disease Expo: No Recent Hopitalizations: No Immunizations Up To Date Tetanus Booster (TDap): Unknown PED Vaccines UTD: No Date of Influenza Vaccine: Oct 04, 2016 Seasonal Allergies Seasonal Allergies: Yes Surgeries History of Surgeries: No Respiratory History of Respiratory Disorde: Yes (WINTER INDUCED ASTHMA) Respiratory Disorders: Asthma Currently Using CPAP: No Currently Using BIPAP: No Cardiovascular History of Cardiac Disorders: No Neurological History of Neurological Disord: No Reproductive System : No Hx Reproductive Disorders: No Sexually Transmitted Disease: Yes HIV/AIDS: No Female Reproductive Disorders: Denies Genitourinary History of Genitourinary Disor: Yes Genitourinary Disorders: UTI-Chronic Gastrointestinal History of Gastrointestinal Di: Yes Gastrointestinal Disorders: Gastroesophageal Reflux Musculoskeletal History of Musculoskeletal Dis: No Endocrine History of Endocrine Disorders: No HEENT History of HEENT Disorders: No Cancer History of Cancer: No Psychosocial History of Psychiatric Problem: Yes Behavioral Health Disorders: Anxiety Integumentary History of Skin or Integumenta: No Blood Transfusions History of Blood Disorders: No Family Medical History Significant Family History: No Pertinent Family Hx Family Medial History: Family history: Asthma 03 MOTHER Family history: Diabetes mellitus (type 2 diabetes) 03 MOTHER History of - disorder (anxiety, Brother has heart murmur) 03 MOTHER Physical Exam Vital Signs Vital Signs - First Documented 01/05/18 16:12 Temp 98.0 Pulse 89 Resp 18 B/P (MAP) 112/70 (84) Pulse Ox 99 Capillary Refill : Less Than 3 Seconds General Appearance: WD/WN, no apparent distress HEENT: PERRL/EOMI, TMs normal, pharynx normal, other (nasal congestion and rhinorrhea) Neck: normal inspection Respiratory: lungs clear, normal breath sounds, no respiratory distress, no accessory muscle use Cardiovascular: regular rate, rhythm, no edema, no murmur Progress/Results/Core Measures Suspected Sepsis Recent Fever Within 48 Hours: No Infection Criteria Present: None New/Unexplained Altered Menta: No Sepsis Screen: No Definite Risk Sepsis Diagnosis: SIRS Temperature:98.0 Pulse: 89 Respiratory Rate: 18 Blood Pressure 112 /70 Mean: 84 Results/Orders Lab Results Laboratory Tests Test 01/05/18 16:48 Range/Units Group A Streptococcus Screen NEGATIVE NEGATIVE Micro Results Microbiology 01/05/18 Influenza Types A,B Antigen (MARIE) - Final, Complete My Orders Orders - EMILEE QUIROZ MD Rapid Strep A Screen (01/05/18 16:52) Influenza A And B Antigens (01/05/18 16:52) Vital Signs/I&O Vital Sign - Last 12Hours 01/05/18 16:12 Temp 98.0 Pulse 89 Resp 18 B/P (MAP) 112/70 (84) Pulse Ox 99 Capillary Refill : Less Than 3 Seconds Blood Pressure Mean: 84 Progress Note : Progress Note Strep and influenza screens were negative. Patient was advised to use over-the- counter medications for symptom management. Departure Impression Impression: Primary Impression: Upper respiratory infection Qualified Codes: J06.9 - Acute upper respiratory infection, unspecified Disposition: 01 HOME, SELF-CARE Condition: Stable Departure-Patient Inst. Decision time for Depature: 16:50 Referrals: TATIANA WEI MD (PCP/Family) Primary Care Physician Patient Instructions: Viral Upper Respiratory Infection, Adult (DC) Add. Discharge Instructions: You may use [id number] medications such as ibuprofen and/or Tylenol ( acetaminophen) for pain or fever. You may use kvae-jbn-[id number] cough and cold medications for congestion and cough. Look at the active ingredients on over- the-counter medications to ensure you are not doubling up on any one active ingredient. Return to care with your primary care provider if symptoms are worsening or you're not improving as expected. All discharge instructions reviewed with patient and/or family. Voiced understanding. Scripts No Active Prescriptions or Reported Meds EMILEE QUIROZ MD Jan 05, 2018 17:23
[2018-01-05 17:42] VITALS: BP 112/70
== END 2018-01-05 17:42 | disposition home or self-care (01) ==
LOC: EDUNIT# 15:23 → ER 15:23
DX: J06.9 Acute upper respiratory infection, unspecified (principal); J45.909 Unspecified asthma, uncomplicated; K21.9 Gastro-esophageal reflux disease without esophagitis; F41.9 Anxiety disorder, unspecified; F17.210 Nicotine dependence, cigarettes, uncomplicated; Z87.440 Personal history of urinary (tract) infections
CPT/HCPCS: 87430; 87804; 99282

== ENCOUNTER 2018-03-14 19:03 | Emergency (ER) | payer MEDICAID ==
[~2018-03-14] VITALS: Ht 160 cm; Wt 51.7 kg
--- NOTE | 2018-03-14 19:16 | ED GU-Female ---
General Chief Complaint: -Female Stated Complaint: PAIN WHEN URINATING Nursing Triage Note: c/o dysuria Nursing Sepsis Screen: No Definite Risk Source: patient Exam Limitations: no limitations History of Present Illness Date Seen by Provider: March 14, 2018 Time Seen by Provider: 19:15 Initial Comments To ER with reports of urinary frequency, burning upon urination, bilateral flank pain. No fevers or chills. No nausea or vomiting. Symptoms started earlier today. Timing/Duration: this morning Severity/Quality: moderate Location: suprapubic Radiation: right flank, left flank Prior Genitourinary Problems: none Associated Symptoms: No lower back pain, No nausea/vomiting; urinary frequency Allergies and Home Medications Allergies Coded Allergies: No Known Drug Allergies (Unverified , 09/26/17) Home Medications Sulfamethoxazole/Trimethoprim 1 Each Tablet, 1 EACH PO BID Prescribed by: GLO BLOOM on 03/14/181924 Patient Home Medication List Home Medication List Reviewed: Yes Review of Systems Constitutional: see HPI; No chills, No fever EENTM: see HPI Respiratory: no symptoms reported Cardiovascular: no symptoms reported Genitourinary: see HPI, dysuria Musculoskeletal: no symptoms reported Skin: no symptoms reported Psychiatric/Neurological: No Symptoms Reported Endocrine: No Symptoms Reported Past Vqyzyav-Uyvtff-Ncmkxg Hx Patient Social History Alcohol Use: Denies Use Recreational Drug Use: No Smoking Status: Never a Smoker Type Used: Cigarettes Former Smoker, Quit: Jun 30, 2017 2nd Hand Smoke Exposure: No Recent Foreign Travel: No Contact w/Someone Who Travel: No Recent Infectious Disease Expo: No Recent Hopitalizations: No Immunizations Up To Date Tetanus Booster (TDap): Unknown PED Vaccines UTD: No Date of Influenza Vaccine: Oct 04, 2016 Seasonal Allergies Seasonal Allergies: Yes Past Medical History Surgeries: No Respiratory: Yes (WINTER INDUCED ASTHMA) Asthma Currently Using CPAP: No Currently Using BIPAP: No Cardiac: No Neurological: No Reproductive Disorders: No Female Reproductive Disorders: Denies Sexually Transmitted Disease: Yes HIV/AIDS: No Genitourinary: Yes UTI-Chronic Gastrointestinal: Yes Gastroesophageal Reflux Musculoskeletal: No Endocrine: No HEENT: No Cancer: No Psychosocial: Yes Anxiety Integumentary: No Blood Disorders: No Family Medical History Family history: Asthma 03 MOTHER Family history: Diabetes mellitus (type 2 diabetes) 03 MOTHER History of - disorder (anxiety, Brother has heart murmur) 03 MOTHER No Pertinent Family Hx Physical Exam Vital Signs Vital Signs - First Documented 03/14/18 19:09 Pulse 84 Resp 18 B/P (MAP) 114/41 (65) Pulse Ox 99 Capillary Refill : Less Than 3 Seconds General Appearance: WD/WN, no apparent distress HEENT: PERRL/EOMI, normal ENT inspection Neck: non-tender, full range of motion Respiratory: no respiratory distress, no accessory muscle use Gastrointestinal: normal bowel sounds, non tender, soft Back: CVA tenderness (R), CVA tenderness (L) Extremities: normal range of motion, non-tender Neurologic/Psychiatric: alert, normal mood/affect, oriented x 3 Skin: normal color, warm/dry Progress/Results/Core Measures Suspected Sepsis Recent Fever Within 48 Hours: No Infection Criteria Present: None New/Unexplained Altered Menta: No Sepsis Screen: No Definite Risk SIRS Temperature: Pulse: 84 Respiratory Rate: 18 Blood Pressure 114 /41 Mean: 65 Results/Orders Lab Results Laboratory Tests Test 03/14/18 19:10 Range/Units Urine Color YELLOW Urine Clarity SLIGHTLY CLOUDY Urine pH 6 5-9 Urine Specific [place] 1.025 H 1.016-1.022 Urine Protein 2+ H NEGATIVE Urine Glucose (UA) NEGATIVE NEGATIVE Urine Ketones NEGATIVE NEGATIVE Urine Nitrite NEGATIVE NEGATIVE Urine Bilirubin NEGATIVE NEGATIVE Urine Urobilinogen NORMAL NORMAL MG/DL Urine Leukocyte Esterase 3+ H NEGATIVE Urine RBC (Auto) 1+ H NEGATIVE Urine RBC 0-2 /HPF Urine WBC TNTC H /HPF Urine Squamous Epithelial Cells 10-25 H /HPF Urine Crystals NONE /LPF Urine Bacteria MODERATE H /HPF Urine Casts NONE /LPF Urine Mucus MODERATE H /LPF Urine Culture Indicated YES My Orders Orders - GLO BLOOM APRN Ua Culture If Indicated (03/14/18 19:08) Urine Bedside (03/14/18 19:08) Urine Culture (03/14/18 19:10) Sulfamethoxazole/Trimet Ds Tab (Bactrim (03/14/18 19:30) Vital Signs/I&O 03/14/18 19:09 Pulse 84 Resp 18 B/P (MAP) 114/41 (65) Pulse Ox 99 Capillary Refill : Less Than 3 Seconds Blood Pressure Mean: 65 Departure Impression Primary Impression: Urinary tract infectious disease Disposition: 01 HOME, SELF-CARE Condition: Stable Departure-Patient Inst. Decision time for Depature: 19:24 Referrals: [facility] (PCP) Primary Care Physician IVY SWIFT APRN (Family) Primary Care Physician Patient Instructions: Urinary Tract Infection, Adult (DC) Add. Discharge Instructions: 1. Return to ER for fevers vomiting or other concerns. All discharge instructions reviewed with patient and/or family. Voiced understanding. Scripts Sulfamethoxazole/Trimethoprim (Bactrim Ds Tablet) 1 Each Tablet 1 EACH PO BID, #6 TAB Prov: GLO BLOOM APRN 03/14/18 GLO BLOOM APRN March 14, 2018 19:16
[2018-03-14 19:17] LABS: BILIRUBIN,URINE NEGATIVE (NEGATIVE); CLARITY,URINE SLIGHTLY CLOUDY; COLOR,URINE YELLOW; GLUCOSE, URINE (UA) NEGATIVE (NEGATIVE); KETONES,URINE NEGATIVE (NEGATIVE); LEUKOCYTE ESTERASE ,URINE 3+ (NEGATIVE); NITRITE,URINE NEGATIVE (NEGATIVE); PH,URINE 6 (5-9); PROTEIN,URINE 2+ (NEGATIVE); UROBILINOGEN,URINE NORMAL (NORMAL)
[2018-03-14] MEDS ORDERED: SULF1TAB35 PO (19:25)
[2018-03-14 19:26] LABS: BACTERIA,URINE MODERATE /HPF; RBC,URINE 0-2 /HPF; WBC,URINE TNTC /HPF
[2018-03-14 19:32] VITALS: BP 114/41
[2018-03-14] MEDS: TRIM/SULFAMETH 160/800 (SEPTRA DS) TAB PO ONE (19:32)
== END 2018-03-14 19:32 | disposition home or self-care (01) ==
LOC: EDUNIT# 19:03 → ER 19:06
DX: N39.0 Urinary tract infection, site not specified (principal); J45.998 Other asthma; K21.9 Gastro-esophageal reflux disease without esophagitis; F41.9 Anxiety disorder, unspecified; Z87.891 Personal history of nicotine dependence
CPT/HCPCS: 81000; 84703; 87088; 99283

== ENCOUNTER 2018-04-19 16:30 | Emergency (ER) | payer MEDICAID ==
[~2018-04-19] VITALS: Ht 162.6 cm; Wt 56.7 kg
[~2018-04-19 16:30] MED LIST changes: +SULF1TAB35 PO
[2018-04-19] MEDS ORDERED: ONDANSETRON 4 MG (ZOFRAN) ORAL DISSOLVE TAB PO ONE (17:30)
--- NOTE | 2018-04-19 17:34 | ED General ---
General Stated Complaint: PROBLEMS WITH BLOOD SUGAR,DIZZY SPELLS,NAUSEA Source of Information: Patient Exam Limitations: No Limitations History of Present Illness Date Seen by Provider: Apr 19, 2018 Time Seen by Provider: 17:30 Initial Comments to ER with reports of dizziness, nausea, lightheaded intermittently for the past year and she believes these to represent a blood sugar issue. Timing/Duration: 1-2 Days Severity: Moderate Allergies and Home Medications Allergies Coded Allergies: No Known Drug Allergies (Unverified , 09/26/17) Home Medications Sulfamethoxazole/Trimethoprim 1 Each Tablet, 1 EACH PO BID Prescribed by: GLO BLOOM on 03/14/181924 Patient Home Medication List Home Medication List Reviewed: Yes Review of Systems Constitutional: see HPI EENTM: see HPI Respiratory: no symptoms reported Cardiovascular: no symptoms reported Genitourinary: no symptoms reported Musculoskeletal: no symptoms reported Skin: no symptoms reported Psychiatric/Neurological: No Symptoms Reported Hematologic/Lymphatic: No Symptoms Reported Immunological/Allergic: no symptoms reported Past Lqherio-Ktxluz-Lmcwiv Hx Patient Social History Type Used: Cigarettes Former Smoker, Quit: Jun 30, 2017 2nd Hand Smoke Exposure: No Recent Foreign Travel: No Contact w/Someone Who Travel: No Recent Hopitalizations: No Immunizations Up To Date Tetanus Booster (TDap): Unknown PED Vaccines UTD: No Date of Influenza Vaccine: Oct 04, 2016 Seasonal Allergies Seasonal Allergies: Yes Past Medical History Surgeries: No Respiratory: Yes (WINTER INDUCED ASTHMA) Asthma Currently Using CPAP: No Currently Using BIPAP: No Cardiac: No Neurological: No Reproductive Disorders: No Female Reproductive Disorders: Denies Sexually Transmitted Disease: Yes HIV/AIDS: No Genitourinary: Yes UTI-Chronic Gastrointestinal: Yes Gastroesophageal Reflux Musculoskeletal: No Endocrine: No HEENT: No Cancer: No Psychosocial: Yes Anxiety Integumentary: No Blood Disorders: No Family Medical History Family history: Asthma 03 MOTHER Family history: Diabetes mellitus (type 2 diabetes) 03 MOTHER History of - disorder (anxiety, Brother has heart murmur) 03 MOTHER No Pertinent Family Hx Physical Exam Vital Signs Capillary Refill : General Appearance: No Apparent Distress, WD/WN Eyes: Bilateral Eye Normal Inspection, Bilateral Eye PERRL, Bilateral Eye EOMI HEENT: PERRL/EOMI, TMs Normal Neck: Full Range of Motion, Normal Inspection Respiratory: Normal Breath Sounds, No Accessory Muscle Use, No Respiratory Distress Cardiovascular: Regular Rate, Rhythm, Normal Peripheral Pulses Gastrointestinal: Normal Bowel Sounds, Non Tender, Soft Extremity: Normal Capillary Refill, Normal Inspection Neurologic/Psychiatric: Alert, Oriented x3, No Motor/Sensory Deficits Skin: Normal Color, Warm/Dry Progress/Results/Core Measures Suspected Sepsis SIRS Temperature: Pulse: Respiratory Rate: Blood Pressure / Mean: Results/Orders Vital Signs/I&O Capillary Refill : Departure Impression Primary Impression: General medical examination Disposition: 01 HOME, SELF-CARE Condition: Stable Departure-Patient Inst. Decision time for Depature: 17:33 Referrals: [facility] (PCP) Primary Care Physician IVY SWIFT APRN (Family) Primary Care Physician Patient Instructions: Nausea and Vomiting, Adult GLO BLOOM APRN Apr 19, 2018 17:34
[2018-04-19 18:08] LABS: BASOPHILS % (AUTO) 0 % (0-10); BILIRUBIN,URINE NEGATIVE (NEGATIVE); CLARITY,URINE CLEAR; COLOR,URINE YELLOW; EOSINOPHILS # (AUTO) 0.2 10^3/uL (0.0-0.3); EOSINOPHILS % (AUTO) 2 % (0-10); GLUCOSE, URINE (UA) NEGATIVE (NEGATIVE); HEMATOCRIT 37 % (35-52); HEMOGLOBIN 12.3 G/DL (11.5-16.0); KETONES,URINE NEGATIVE (NEGATIVE); LEUKOCYTE ESTERASE ,URINE 3+ (NEGATIVE); LYMPHOCYTES # (AUTO) 2.1 X 10^3 (1.0-4.0); LYMPHOCYTES % (AUTO) 32 % (12-44); MEAN CORPUSCULAR HEMOGLOBIN 28 PG (25-34); MEAN CORPUSCULAR HGB CONC 34 G/DL (32-36); MEAN CORPUSCULAR VOLUME 82 FL (80-99); MEAN PLATELET VOLUME 10.9 FL (7.4-10.4); MONOCYTES # (AUTO) 0.8 X 10^3 (0.0-1.0); MONOCYTES % (AUTO) 12 % (0-12); NEUTROPHILS # (AUTO) 3.5 X 10^3 (1.8-7.8); NEUTROPHILS % (AUTO) 54 % (42-75); NITRITE,URINE NEGATIVE (NEGATIVE); PH,URINE 7 (5-9); PLATELET COUNT 249 10^3/uL (130-400); PROTEIN,URINE NEGATIVE (NEGATIVE); RED BLOOD COUNT 4.47 10^6/uL (4.35-5.85); RED CELL DISTRIBUTION WIDTH 14.1 % (10.0-14.5); UROBILINOGEN,URINE NORMAL (NORMAL); WHITE BLOOD COUNT 6.6 10^3/uL (4.3-11.0)
[2018-04-19 18:35] LABS: BACTERIA,URINE MODERATE /HPF
[2018-04-19 18:39] LABS: ALANINE AMINOTRANSFERASE 12 U/L (0-55); ALBUMIN 4.4 GM/DL (3.2-4.5); ALKALINE PHOSPHATASE 40 U/L (40-136); BILIRUBIN,TOTAL 0.3 MG/DL (0.1-1.0); BUN/CREATININE RATIO 17; CALCIUM 9.1 MG/DL (8.5-10.1); CARBON DIOXIDE 22 MMOL/L (21-32); CHLORIDE 108 MMOL/L (98-107); CREATININE SERUM 0.72 MG/DL (0.60-1.30); GFR ESTIMATED > 60; GLUCOSE 85 MG/DL (70-105); POTASSIUM 3.7 MMOL/L (3.6-5.0); SODIUM 140 MMOL/L (135-145); TOTAL PROTEIN 6.8 GM/DL (6.4-8.2)
[2018-04-19 18:59] LABS: FREE T4 (FREE THYROXINE) 1.08 NG/DL (0.70-1.48)
[2018-04-19 19:05] VITALS: BP 117/76
== END 2018-04-19 19:05 | disposition home or self-care (01) ==
LOC: ER 16:30
DX: R42 Dizziness and giddiness (principal); R11.0 Nausea; J45.998 Other asthma; K21.9 Gastro-esophageal reflux disease without esophagitis; F41.9 Anxiety disorder, unspecified
CPT/HCPCS: 36415; 80053; 81000; 84439; 84443; 84703; 85025; 87088; 99283

== ENCOUNTER 2018-04-26 13:18 | Emergency (ER) | payer MEDICAID ==
[~2018-04-26] VITALS: Ht 162.6 cm; Wt 56.7 kg
[2018-04-26] MEDS ORDERED: ARIP2TAB11 (13:25)
[2018-04-26] MEDS ORDERED: BUSP10TA95 (13:25)
[2018-04-26] MEDS ORDERED: NS IV 1000 ML 1,000 ML IV ONE (13:33)
--- NOTE | 2018-04-26 13:35 | ED Neurological Problem ---
General Chief Complaint: Dizziness/Syncope Stated Complaint: DIZZINESS Nursing Triage Note: dizziness after waking up. Nursing Sepsis Screen: No Definite Risk Source: patient Exam Limitations: no limitations History of Present Illness Date Seen by Provider: Apr 26, 2018 Time Seen by Provider: 13:35 Initial Comments 22-year-old female patient presents to the emergency department with complaints of dizziness this a.m. upon waking. Patient states she was seen here one week ago for similar symptoms. Onset of symptoms was over one year ago and have been intermittent. Patient states she typically has nausea with these episodes , but denies any nausea today. States she drinks four 16 oz bottles of water per day. She was seen by Simran Spencer last and is waiting to be scheduled for a "table test". Location Injury Occurred: denies injury Severity: mild Associated Symptoms: No confusion, No fatigue, No fever/chills, No insomnia, No loss of consciousness, No muscle spasms, No numbness in legs/feet, No paresthesia, No ringing in ears, No seizures, No sleepy, No slurred speech, No tingling in legs/feet, No trouble walking, No vision changes, No weakness Allergies and Home Medications Allergies Coded Allergies: No Known Drug Allergies (Unverified , 09/26/17) Patient Home Medication List Home Medication List Reviewed: Yes Review of Systems Constitutional: No chills, No diaphoresis; dizziness; No fever, No malaise, No weakness Eyes: No Symptoms Reported Ears, Nose, Mouth, Throat: no symptoms reported Respiratory: no symptoms reported Cardiovascular: no symptoms reported Gastrointestinal: see HPI; No abdominal pain, No constipation, No diarrhea, No loss of appetite, No melena, No nausea (denies current nausea), No vomiting Genitourinary: no symptoms reported : No Musculoskeletal: no symptoms reported Skin: no symptoms reported Psychiatric/Neurological: Denies Cognitive Dysfunction, Denies Headache, Denies Numbness, Denies [place] Seizures, Denies Tingling, Denies Tonic Clonic Seizures, Denies Unable to Move Lower Ext, Denies Unable to Move Upper Ext, Denies Weakness Endocrine: No Symptoms Reported All Other Systems Reviewed Negative Unless Noted: Yes (Negative excepted noted.) Past Tqqiehz-Zekzsk-Hzbavu Hx Past Med/Social Hx: Reviewed Nursing Past Med/Soc Hx Patient Social History Alcohol Use: Denies Use Recreational Drug Use: No Smoking Status: Former Smoker Type Used: Cigarettes Former Smoker, Quit: Jun 30, 2017 2nd Hand Smoke Exposure: No Recent Foreign Travel: No Contact w/Someone Who Travel: No Recent Infectious Disease Expo: No Recent Hopitalizations: No Immunizations Up To Date Tetanus Booster (TDap): Unknown PED Vaccines UTD: No Date of Influenza Vaccine: Oct 04, 2016 Seasonal Allergies Seasonal Allergies: Yes Past Medical History Surgeries: No Respiratory: No Asthma Currently Using CPAP: No Currently Using BIPAP: No Cardiac: No Neurological: No : No Last Menstrual Period: Apr 03, 2018 Reproductive Disorders: No Female Reproductive Disorders: Denies Sexually Transmitted Disease: Yes HIV/AIDS: No Genitourinary: Yes UTI-Chronic Gastrointestinal: Yes Gastroesophageal Reflux Musculoskeletal: No Endocrine: No HEENT: No Cancer: No Psychosocial: Yes Anxiety Integumentary: No Blood Disorders: No Family Medical History Reviewed Nursing Family Hx Family history: Asthma 03 MOTHER Family history: Diabetes mellitus (type 2 diabetes) 03 MOTHER History of - disorder (anxiety, Brother has heart murmur) 03 MOTHER No Pertinent Family Hx Physical Exam Vital Signs Vital Signs - First Documented 04/26/18 13:20 Temp 97.2 Pulse 72 Resp 18 B/P (MAP) 96/56 (69) Pulse Ox 98 O2 Delivery Room Air Capillary Refill : Less Than 3 Seconds Height, Weight, BMI Height: 5', 4.00" Weight: 125lbs 0oz, [id number] Method:Stated ,26.3BMI General Appearance: WD/WN, no apparent distress, other (ambulates without difficulty) HEENT: PERRL/EOMI, normal ENT inspection, TMs normal, pharynx normal Neck: non-tender, full range of motion, supple, normal inspection Respiratory: lungs clear, normal breath sounds, no respiratory distress, no accessory muscle use Cardiovascular: normal peripheral pulses, regular rate, rhythm, no edema, no gallop, no murmur Peripheral Pulses: 2+ Carotid (R), 2+ Carotid (L), 2+ Dorsalis Pedis (R), 2+ Left Dors-Pedis (L), 2+ Radial Pulses (R), 2+ Radial Pulses (L) Gastrointestinal: normal bowel sounds, non tender, soft, no organomegaly Back: normal inspection Extremities: normal inspection, no pedal edema, no calf tenderness, normal capillary refill 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, no motor/sensory deficits, alert, normal mood/affect, oriented x 3 Crainal Nerves: normal hearing, normal speech, PERRL Coordination/Gait: normal finger to nose, normal gait, negative Romberg's sign Motor/Sensory: no motor deficit, no sensory deficit, no pronator drift Skin: normal color, warm/dry Progress/Results/Core Measures Results/Orders Lab Results Laboratory Tests Test 04/26/18 13:40 04/26/18 13:54 Range/Units White Blood Count 7.1 4.3-11.0 10^3/uL Red Blood Count 4.65 4.35-5.85 10^6/uL Hemoglobin 12.9 11.5-16.0 G/DL Hematocrit 38 35-52 % Mean Corpuscular Volume 82 80-99 FL Mean Corpuscular Hemoglobin 28 25-34 PG Mean Corpuscular Hemoglobin Concent 34 32-36 G/DL Red Cell Distribution Width 13.8 10.0-14.5 % Platelet Count 236 130-400 10^3/uL Mean Platelet Volume 11.3 H 7.4-10.4 FL Neutrophils (%) (Auto) 59 42-75 % Lymphocytes (%) (Auto) 28 12-44 % Monocytes (%) (Auto) 9 0-12 % Eosinophils (%) (Auto) 3 0-10 % Basophils (%) (Auto) 0 0-10 % Neutrophils # (Auto) 4.2 1.8-7.8 X 10^3 Lymphocytes # (Auto) 2.0 1.0-4.0 X 10^3 Monocytes # (Auto) 0.7 0.0-1.0 X 10^3 Eosinophils # (Auto) 0.2 0.0-0.3 10^3/uL Basophils # (Auto) 0.0 0.0-0.1 10^3/uL Sodium Level 141 135-145 MMOL/L Potassium Level 3.8 3.6-5.0 MMOL/L Chloride Level 109 H 98-107 MMOL/L Carbon Dioxide Level 24 21-32 MMOL/L Anion Gap 8 5-14 MMOL/L Blood Urea Nitrogen 16 7-18 MG/DL Creatinine 0.82 0.60-1.30 MG/DL Estimat Glomerular Filtration Rate > 60 BUN/Creatinine Ratio 20 Glucose Level 69 L 70-105 MG/DL Calcium Level 9.3 8.5-10.1 MG/DL Total Bilirubin 0.6 0.1-1.0 MG/DL Aspartate Amino Transf (AST/SGOT) 13 5-34 U/L Alanine Aminotransferase (ALT/SGPT) 12 0-55 U/L Alkaline Phosphatase 40 40-136 U/L C-Reactive Protein High Sensitivity 0.07 0.00-0.50 MG/DL Total Protein 6.9 6.4-8.2 GM/DL Albumin 4.3 3.2-4.5 GM/DL Serum Alcohol < 10 <10 MG/DL Urine Color YELLOW Urine Clarity CLEAR Urine pH 6.5 5-9 Urine Specific [place] 1.015 L 1.016-1.022 Urine Protein NEGATIVE NEGATIVE Urine Glucose (UA) NEGATIVE NEGATIVE Urine Ketones NEGATIVE NEGATIVE Urine Nitrite NEGATIVE NEGATIVE Urine Bilirubin NEGATIVE NEGATIVE Urine Urobilinogen NORMAL NORMAL MG/DL Urine Leukocyte Esterase 1+ H NEGATIVE Urine RBC (Auto) NEGATIVE NEGATIVE Urine RBC NONE /HPF Urine WBC 2-5 /HPF Urine Squamous Epithelial Cells 5-10 /HPF Urine Crystals NONE /LPF Urine Bacteria NEGATIVE /HPF Urine Casts NONE /LPF Urine Mucus NEGATIVE /LPF Urine Culture Indicated NO Urine Opiates Screen NEGATIVE NEGATIVE Urine Oxycodone Screen NEGATIVE NEGATIVE Urine Methadone Screen NEGATIVE NEGATIVE Urine Propoxyphene Screen NEGATIVE NEGATIVE Urine Barbiturates Screen NEGATIVE NEGATIVE Ur Tricyclic Antidepressants Screen NEGATIVE NEGATIVE Urine Phencyclidine Screen NEGATIVE NEGATIVE Urine Amphetamines Screen NEGATIVE NEGATIVE Urine Methamphetamines Screen NEGATIVE NEGATIVE Urine Benzodiazepines Screen NEGATIVE NEGATIVE Urine Cocaine Screen NEGATIVE NEGATIVE Urine Cannabinoids Screen NEGATIVE NEGATIVE My Orders Orders - JAMEY KRAFT Alcohol (04/26/18 13:33) Cbc With Automated Diff (04/26/18 13:33) Comprehensive Metabolic Panel (04/26/18 13:33) Hs C Reactive Protein (04/26/18 13:33) Drug Screen Stat (Urine) (04/26/18 13:33) Ua Culture If Indicated (04/26/18 13:33) Urine Bedside (04/26/18 13:33) Ekg Tracing (04/26/18 13:33) Ns Iv 1000 Ml (Sodium Chloride 0.9%) (04/26/18 13:33) Saline Lock/Iv-Start (04/26/18 13:41) Medications Given in ED Current Medications Medications Dose Ordered Sig/Adelita Route Start Time Stop Time Status Last Admin Dose Admin Sodium Chloride 1,000 ml @ 0 mls/hr Q0M ONCE IV 04/26/18 13:33 04/26/18 13:35 DC 04/26/18 13:42 0 MLS/HR Vital Signs/I&O 04/26/18 13:20 Temp 97.2 Pulse 72 Resp 18 B/P (MAP) 96/56 (69) Pulse Ox 98 O2 Delivery Room Air Blood Pressure Mean: 69 Initial ECG Impression Date: Apr 26, 2018 Initial ECG Impression Time: 13:39 Initial ECG Rate: 67 Initial ECG Rhythm: Normal Sinus Initial ECG Intervals: Normal Initial ECG Impression: Normal Comment Sinus rhythm. No STEMI or arrhythmia noted. ECG reviewed with Dr. Cullen. Departure Communication (Admissions) Laboratory and ECG findings discussed with the patient. Patient given crackers , peanut butter, and water. Patient instructed to follow-up with Simran Mclain for recheck as an outpatient. Patient also advised to 5-6 small meals per day. Instructed to drink water alternating with Powerade and Gatorade. Patient to return immediately for worsened symptoms or any other concerns. Impression Primary Impression: Intermittent lightheadedness Additional Impression: Hypoglycemia Disposition: 01 HOME, SELF-CARE Condition: Improved Departure-Patient Inst. Decision time for Depature: 14:27 Referrals: [facility]/ (PCP) Primary Care Physician IVY MCLAIN APRN (Family) Primary Care Physician Patient Instructions: Low Blood Sugar, Adult (DC), Vertigo (a Type of Dizziness ) (DC) Add. Discharge Instructions: All discharge instructions reviewed with patient and/or family. Voiced understanding. Drink plenty of fluids. Alternate water with Gatorade/Powerade/ vitamin water. Eat 5-6 small meals throughout the day. Avoid standing or walking quickly. Follow-up with Simran Spencer APRN on Friday or Friday for recheck. She may order an MRI of the brain as an outpatient. Discuss this with her at your next appointment. Return to the emergency department for worsened symptoms or any other concerns. JAMEY KRAFT Apr 26, 2018 13:35
[2018-04-26 13:54] LABS: BASOPHILS % (AUTO) 0 % (0-10); EOSINOPHILS # (AUTO) 0.2 10^3/uL (0.0-0.3); EOSINOPHILS % (AUTO) 3 % (0-10); HEMATOCRIT 38 % (35-52); HEMOGLOBIN 12.9 G/DL (11.5-16.0); LYMPHOCYTES % (AUTO) 28 % (12-44); MEAN CORPUSCULAR HEMOGLOBIN 28 PG (25-34); MEAN CORPUSCULAR HGB CONC 34 G/DL (32-36); MEAN CORPUSCULAR VOLUME 82 FL (80-99); MEAN PLATELET VOLUME 11.3 FL (7.4-10.4); MONOCYTES # (AUTO) 0.7 X 10^3 (0.0-1.0); MONOCYTES % (AUTO) 9 % (0-12); NEUTROPHILS # (AUTO) 4.2 X 10^3 (1.8-7.8); NEUTROPHILS % (AUTO) 59 % (42-75); PLATELET COUNT 236 10^3/uL (130-400); RED BLOOD COUNT 4.65 10^6/uL (4.35-5.85); RED CELL DISTRIBUTION WIDTH 13.8 % (10.0-14.5); WHITE BLOOD COUNT 7.1 10^3/uL (4.3-11.0)
[2018-04-26 14:06] LABS: BILIRUBIN,URINE NEGATIVE (NEGATIVE); CLARITY,URINE CLEAR; COLOR,URINE YELLOW; GLUCOSE, URINE (UA) NEGATIVE (NEGATIVE); KETONES,URINE NEGATIVE (NEGATIVE); LEUKOCYTE ESTERASE ,URINE 1+ (NEGATIVE); NITRITE,URINE NEGATIVE (NEGATIVE); PH,URINE 6.5 (5-9); PROTEIN,URINE NEGATIVE (NEGATIVE); UROBILINOGEN,URINE NORMAL (NORMAL)
[2018-04-26 14:11] LABS: ALANINE AMINOTRANSFERASE 12 U/L (0-55); ALBUMIN 4.3 GM/DL (3.2-4.5); ALKALINE PHOSPHATASE 40 U/L (40-136); BILIRUBIN,TOTAL 0.6 MG/DL (0.1-1.0); BUN/CREATININE RATIO 20; CALCIUM 9.3 MG/DL (8.5-10.1); CARBON DIOXIDE 24 MMOL/L (21-32); CHLORIDE 109 MMOL/L (98-107); CREATININE SERUM 0.82 MG/DL (0.60-1.30); GFR ESTIMATED > 60; GLUCOSE 69 MG/DL (70-105); POTASSIUM 3.8 MMOL/L (3.6-5.0); SODIUM 141 MMOL/L (135-145); TOTAL PROTEIN 6.9 GM/DL (6.4-8.2)
[2018-04-26 14:15] LABS: BACTERIA,URINE NEGATIVE /HPF
[2018-04-26 14:22] LABS: AMPHETAMINE SCREEN, URINE NEGATIVE (NEGATIVE); BARBITURATE SCREEN URINE NEGATIVE (NEGATIVE); BENZODIAZEPINES SCREEN URINE NEGATIVE (NEGATIVE); CANNABINOID SCREEN, URINE NEGATIVE (NEGATIVE); COCAINE SCREEN URINE NEGATIVE (NEGATIVE); METHADONE STAT NEGATIVE (NEGATIVE); METHAMPHETAMINE SCREEN URINE S NEGATIVE (NEGATIVE); OPIATE SCREEN URINE NEGATIVE (NEGATIVE); OXYCODONE STAT NEGATIVE (NEGATIVE); PROPOXYPHENE STAT NEGATIVE (NEGATIVE); TRICYCLIC ANTIDEPRESSANTS SCRE NEGATIVE (NEGATIVE)
[2018-04-26 14:49] VITALS: BP 102/61
== END 2018-04-26 14:47 | disposition home or self-care (01) ==
LOC: ER 13:18 → EDUNIT# 13:18 → ER 14:47
DX: R42 Dizziness and giddiness (principal); E16.2 Hypoglycemia, unspecified; J45.909 Unspecified asthma, uncomplicated; K21.9 Gastro-esophageal reflux disease without esophagitis; F41.9 Anxiety disorder, unspecified; Z87.891 Personal history of nicotine dependence
CPT/HCPCS: 36415; 80053; 80306; 80320; 81000; 84703; 85025; 86141; 93005; 96360

== ENCOUNTER 2018-05-17 13:43 | Emergency (ER) | payer MEDICAID ==
[~2018-05-17] VITALS: Ht 160 cm; Wt 54.4 kg
[~2018-05-17 13:43] MED LIST changes: +ARIP2TAB11; +BUSP10TA95
[2018-05-17 14:03] LABS: BILIRUBIN,URINE NEGATIVE (NEGATIVE); CLARITY,URINE SLIGHTLY CLOUDY; COLOR,URINE YELLOW; GLUCOSE, URINE (UA) NEGATIVE (NEGATIVE); KETONES,URINE NEGATIVE (NEGATIVE); LEUKOCYTE ESTERASE ,URINE 2+ (NEGATIVE); NITRITE,URINE NEGATIVE (NEGATIVE); PH,URINE 8 (5-9); PROTEIN,URINE 1+ (NEGATIVE); UROBILINOGEN,URINE NORMAL (NORMAL)
[2018-05-17 14:20] LABS: BACTERIA,URINE MODERATE /HPF; WBC,URINE 25-50 /HPF
--- NOTE | 2018-05-17 14:20 | ED GU-Female ---
General Chief Complaint: -Female Stated Complaint: PAINFUL URINATION Nursing Triage Note: Pt ambulated to rm 10 w/o difficulty. Pt c/o painful urination and cramping since this am. Pt denies blood in urine. Pt c/o lower abdominal pain. Pt states she has hx of UTI. Nursing Sepsis Screen: No Definite Risk Source: patient Exam Limitations: no limitations History of Present Illness Date Seen by Provider: May 17, 2018 Time Seen by Provider: 13:50 Initial Comments 23-year-old woman presents emergency room with complaints of suprapubic cramps and pain with urination. She has urinary frequency as well. Symptoms were first noted this morning. She believes she has a urinary tract infection. Last menstrual period was the middle of March. She states her menstrual cycles are normally longer than 20 days. She denies vaginal pain with intercourse or vaginal discharge. She is afebrile. Allergies and Home Medications Allergies Coded Allergies: No Known Drug Allergies (Unverified , 09/26/17) Home Medications Cephalexin 500 Mg Capsule, 500 MG PO QID Prescribed by: EMILEE SAGASTUME on 05/17/18 1433 Phenazopyridine HCl 200 Mg Tablet, 1 TAB PO TID PRN for PAIN-MODERATE TO SEVERE Prescribed by: EMILEE SAGASTUME on 05/17/18 1433 Patient Home Medication List Home Medication List Reviewed: Yes Review of Systems Constitutional: no symptoms reported; No fever EENTM: no symptoms reported Respiratory: no symptoms reported Cardiovascular: no symptoms reported Gastrointestinal: no symptoms reported Genitourinary: see HPI : No LMP: Mar 20, 2018 Musculoskeletal: no symptoms reported Skin: no symptoms reported Psychiatric/Neurological: No Symptoms Reported Endocrine: No Symptoms Reported Hematologic/Lymphatic: No Symptoms Reported Past Orkhegb-Qaxcmo-Clftkq Hx Past Med/Social Hx: Reviewed Nursing Past Med/Soc Hx Patient Social History Alcohol Use: Denies Use Recreational Drug Use: No Smoking Status: Former Smoker Type Used: Cigarettes Former Smoker, Quit: Mar 20, 2018 2nd Hand Smoke Exposure: No Recent Foreign Travel: No Contact w/Someone Who Travel: No Recent Infectious Disease Expo: No Recent Hopitalizations: No Physical Abuse: No Sexual Abuse: No Immunizations Up To Date Tetanus Booster (TDap): Unknown PED Vaccines UTD: No Date of Influenza Vaccine: Oct 04, 2016 Seasonal Allergies Seasonal Allergies: Yes Past Medical History Surgeries: No Respiratory: No Asthma Currently Using CPAP: No Currently Using BIPAP: No Cardiac: No Neurological: No Last Menstrual Period: Apr 13, 2018 Reproductive Disorders: No Female Reproductive Disorders: Denies Sexually Transmitted Disease: Yes HIV/AIDS: No Genitourinary: Yes UTI-Chronic Gastrointestinal: Yes Gastroesophageal Reflux Musculoskeletal: No Endocrine: No HEENT: No Cancer: No Psychosocial: Yes (panic attacks) Anxiety Nursing Suicide Risk Score: 0 Integumentary: No Blood Disorders: No Family Medical History Family history: Asthma 03 MOTHER Family history: Diabetes mellitus (type 2 diabetes) 03 MOTHER History of - disorder (anxiety, Brother has heart murmur) 03 MOTHER No Pertinent Family Hx Physical Exam Vital Signs Vital Signs - First Documented 05/17/18 13:51 Temp 97.0 Pulse 75 Resp 13 B/P (MAP) 96/67 (77) O2 Delivery Room Air Capillary Refill : Less Than 3 Seconds Height, Weight, BMI Height: 5'3.00" Weight: 120lbs. 0oz. 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, no motor/sensory deficits, alert, normal mood/affect, oriented x 3 Skin: normal color, warm/dry Progress/Results/Core Measures Suspected Sepsis Recent Fever Within 48 Hours: No Infection Criteria Present: None New/Unexplained Altered Menta: No Sepsis Screen: No Definite Risk SIRS Temperature:97.0 Pulse: 75 Respiratory Rate: 13 Blood Pressure 96 /67 Mean: 77 Results/Orders Lab Results Laboratory Tests Test 05/17/18 13:52 Range/Units Urine Color YELLOW Urine Clarity SLIGHTLY CLOUDY Urine pH 8 5-9 Urine Specific [place] 1.015 L 1.016-1.022 Urine Protein 1+ H NEGATIVE Urine Glucose (UA) NEGATIVE NEGATIVE Urine Ketones NEGATIVE NEGATIVE Urine Nitrite NEGATIVE NEGATIVE Urine Bilirubin NEGATIVE NEGATIVE Urine Urobilinogen NORMAL NORMAL MG/DL Urine Leukocyte Esterase 2+ H NEGATIVE Urine RBC (Auto) NEGATIVE NEGATIVE Urine RBC NONE /HPF Urine WBC 25-50 H /HPF Urine Squamous Epithelial Cells 10-25 H /HPF Urine Crystals NONE /LPF Urine Bacteria MODERATE H /HPF Urine Casts NONE /LPF Urine Mucus NEGATIVE /LPF Urine Culture Indicated YES My Orders Orders - EMILEE QUIROZ MD Ua Culture If Indicated (05/17/18 13:50) Urine Bedside (05/17/18 13:58) Urine Culture (05/17/18 13:52) Vital Signs/I&O 05/17/18 13:51 Temp 97.0 Pulse 75 Resp 13 B/P (MAP) 96/67 (77) O2 Delivery Room Air Capillary Refill : Less Than 3 Seconds Blood Pressure Mean: 77 Point of Care Testing Urine -Bedside: Negative Progress Note : Progress Note Bedside test was negative. UA was suggestive of urinary tract infection. Departure Impression Primary Impression: Urinary tract infection Qualified Codes: N39.0 - Urinary tract infection, site not specified Disposition: 01 HOME, SELF-CARE Condition: Stable Departure-Patient Inst. Decision time for Depature: 14:20 Referrals: [facility] (PCP) Primary Care Physician IVY SWIFT APRN (Family) Primary Care Physician Patient Instructions: Urinary Tract Infection, Adult (DC) Add. Discharge Instructions: Drink plenty of clear liquids. Complete your antibiotics as prescribed. Follow -up with your primary care provider on Friday or Friday by phone to review urine culture results. This will help ensure you are on an appropriate antibiotic for the type of infection you have. You may use Pyridium as prescribed for pain related to bladder infection. Wipe front to back after using the restroom. Use each piece of toilet paper only once. Urinate after intercourse to help flush bacteria of the urethra. In general, drink often and urinate often. Return to care if symptoms are worsening, especially if you develop fevers over 100. All discharge instructions reviewed with patient and/or family. Voiced understanding. Scripts Cephalexin (Keflex) 500 Mg Capsule 500 MG PO QID, #28 CAP Prov: EMILEE QUIROZ MD 05/17/18 Phenazopyridine HCl (Pyridium) 200 Mg Tablet 1 TAB PO TID PRN for PAIN-MODERATE TO SEVERE, #10 TAB Prov: EMILEE QUIROZ MD 05/17/18 EMILEE QUIROZ MD May 17, 2018 14:20
[2018-05-17] MEDS ORDERED: PHEN-640 PO (14:33)
[2018-05-17] MEDS ORDERED: CEPH-507 PO (14:33)
[2018-05-17 14:41] VITALS: BP 96/65
== END 2018-05-17 14:41 | disposition home or self-care (01) ==
LOC: EDUNIT# 13:43 → ER 13:45
DX: N39.0 Urinary tract infection, site not specified (principal); J45.909 Unspecified asthma, uncomplicated; K21.9 Gastro-esophageal reflux disease without esophagitis; F41.9 Anxiety disorder, unspecified; Z87.440 Personal history of urinary (tract) infections; Z87.891 Personal history of nicotine dependence
CPT/HCPCS: 81000; 84703; 87077; 87088; 87186; 99282

== ENCOUNTER 2018-05-26 18:44 | Emergency (ER) | payer SELFPAY ==
[~2018-05-26] VITALS: Ht 160 cm; Wt 56.7 kg
[~2018-05-26 18:44] MED LIST changes: +PHEN-640 PO
--- OUTSIDE RECORDS SUMMARY | 2018-05-26 18:50 | XMS REPORT ---
Author Author NIDIA BRAY [facility]ALK IN [facility] Address [address] [place] [address] Care Team Providers Care Slip Cover Sewer Name Role Phone NIDIA BRAY Unavailable PROBLEMS Type Condition ICD9-CM Code INY09-XQ Code Onset Dates Condition Status SNOMED Code Problem Bipolar 1 disorder, manic, mild F31.11 Active 87552246 Problem Adjustment disorder with depressed mood F43.21 Active 137433417 Problem Seasonal allergies J30.2 Active 653214985 Problem Anxiety F41.9 Active 26800668 Problem Normal in second trimester Z34.92 Active 84354528 Problem Normal in first trimester Z34.91 Active 34610330 Problem Mood disorder F39 Active 12652747 Problem Adjustment disorder with anxiety F43.22 Active 10773714 ALLERGIES No Known Allergies ENCOUNTERS Encounter Location Date Diagnosis [facility] [address] [address] Apr, Syncope, unspecified syncope type R55 and Dizziness R42 [place] [address] [address] 14 Mar, 2018 Adjustment disorder with depressed mood F43.21 and Anxiety F41.9 [facility] IN [facility] [address] [place] [id number] [place] [address]656 February, Seasonal allergies J30.2 [facility] [id number] [place] [address] 72577- 4183 February, [facility] IN [facility] [address] [address] Dec, Seasonal allergic rhinitis, unspecified trigger J30.2 and Sore throat J02.9 [facility] [address] [address] Oct, Mood disorder F39 [facility] [id number] [place] [address] 40014- 8983 Oct, Mood disorder F39 [place] [address] [place] [id number] [place] [address] 37724- 5146 Sep, Adjustment disorder with depressed mood F43.21 ; Screening cholesterol level Z13.220 and Screening for diabetes mellitus Z13.1 [place] [address] [address] Sep, Adjustment disorder with anxiety F43.22 and Adjustment disorder with depressed mood F43.21 [facility] IN [place] [address] [address] Aug, Pharyngitis due to other organism J02.8 [facility] WALK IN [address] [address] 10 Aug, 2017 Sore throat J02.9 and Acute nasopharyngitis (common cold) J00 [facility] IN [facility] [id number] [place] [address] -0270 Mar, Acute nasopharyngitis J00 [place] [address] [place] [id number] [place] [address] 93053- 5243 07 Mar, 2017 Adjustment disorder with anxiety F43.22 ; Adjustment disorder with depressed mood F43.21 and Bipolar 1 disorder, manic, mild F31.11 [place] [address] [place] [id number] [place] [address] 55897- 6683 Mar, [place] [address] [id number] [place] [address] 63821- 0907 Nov, 39 weeks gestation of Z3A.39 [place] [address] [address]- 7949 Nov, care in third trimester Z34.93 [place] [address] 7[address]69- 9057 Oct, Normal in third trimester Z34.93 [facility] [address] [address] Oct, [facility] [address] [place] [address] 50646- 4058 Oct, Third trimester at less than 36 weeks Z33.1 [facility] [address] [id number] [place] [address] 77335- 4160 Oct[facility] [address] [place] [id number] [place] [id number] Oct, [facility] [address] [place] [id number] [place] [address] 06471- 7096 Oct, Normal in third trimester Z34.93 [place] [address] [id number] [place] [address] 23673- 5724 Sep, Normal in third trimester Z34.93 [facility] [id number] [place] [address] 10018- 2497 Sep, Third trimester at less than 36 weeks Z33.1 and Encounter for immunization Z23 [facility] [address] [place] [id number] [place] [address] 64791- 6304 Aug, Adjustment disorder with anxiety F43.22 and Adjustment disorder with depressed mood F43.21 [place] [address] [place] [address] 96715- 8190 Aug, Abnormal glucose tolerance test in O99.810 [facility] [address] [place] [address] 88020- 1831 Aug, [facility] [address] [id number] [place] [address] 71167- 9256 Aug, Normal in second trimester Z34.92 [facility] [address] [place] [address] 34383 -7688 Aug, Acute upper respiratory infection, unspecified J06.9 and Other viral agents as the cause of diseases classified elsewhere B97.89 [facility] [address] [place] [id number] [place] [address] 52928- 9775 Jul, Adjustment disorder with depressed mood F43.21 and Bipolar 1 disorder, manic, mild F31.11 [facility] [address] [place] [id number] [place] [address] 63629- 8609 Jul, Bipolar 1 disorder, manic, mild F31.11 ; Adjustment disorder with anxiety F43.22 and Adjustment disorder with depressed mood F43.21 [facility] [address] [id number] [place] [address] 80363- 8977 12 Jul, 2016 Normal in second trimester Z34.92 [facility] [address] [id number] [place] [address] 19056 -2039 Jul, Contact dermatitis, unspecified contact dermatitis type, unspecified trigger L25.9 [facility] [address] [id number] [place] [address] 50815- 1811 Jul, Adjustment disorder with depressed mood F43.21 ; Adjustment disorder with anxiety F43.22 and Bipolar 1 disorder, manic, mild F31.11 [place] [address] [id number] [place] [address] 15549- 9700 Jul, Adjustment disorder with depressed mood F43.21 and Bipolar 1 disorder, manic, mild F31.11 [facility] [address] [place] [id number] [place] [address] 96618- 4397 Jun, Adjustment disorder with depressed mood F43.21 and Bipolar 1 disorder, manic, mild F31.11 [facility] [address] [id number] [place] [address] 80082- 0166 Jun, Adjustment disorder with depressed mood F43.21 ; Bipolar 1 disorder, manic, mild F31.11 and Anxiety, generalized F41.1 [facility] [address] [place] [address] 33555- 4911 Jun, Normal in second trimester Z34.92 ; 18 weeks gestation of Z3A.18 and Encounter for immunization Z23 [place] [address] [place] [address] 20270- 9327 07 Jun, 2016 Normal in first trimester Z34.91 [place] [address] [id number] [place] [address] 81450- 4861 24 May, 2016 care in second trimester Z34.92 [place] [address] [id number] [place] [address] 91806- 6047 May, [place] [address] [place] [id number] [place] [address] 47800- 3740 May, [place] [address] [place] [id number] [place] [address] 52097- 9643 May, Major depressive disorder, recurrent, moderate F33.1 [place] [address] [id number] [place] [address] 40493- 6687 10 May, 2016 Normal in first trimester Z34.91 ; Pap smear for cervical cancer screening Z12.4 ; Screen for STD (sexually transmitted disease) Z11.3 and 12 weeks gestation of Z3A.12 [place] [address] [id number] [place] [address] 92034- 2052 08 May, 2016 12 weeks gestation of Z3A.12 ; Unspecified abdominal pain R10.9 and Other specified related conditions, unspecified trimester O26.899 [place] [address] [id number] [place] [address] 49205- 9809 Apr, [place] [address] [id number] [place] [address] 30000- 6136 Apr, [place] [address] [place] [id number] [place] [address] 98525- 1053 February, [place] [address] [place] [id number] [place] [address] 92981- 4540 February, Bipolar 1 disorder, manic, mild F31.11 and Adjustment disorder with depressed mood F43.21 [place] [address] [place] [address] Dec, Major depressive disorder, single episode, moderate F32.1 ; Adjustment disorder with depressed mood F43.21 and Bipolar 1 disorder, manic, mild F31.11 [place] [address] [place] [id number] [place] [address] 48377- 8663 Dec, Adjustment disorder with depressed mood F43.21 ; Major depressive disorder, single episode, moderate F32.1 and Bipolar 1 disorder, manic, mild F31.11 [place] [address] [place] [id number] [place] [address] 18254- 6504 Dec, Right hand pain M79.641 [place] [address] [place] [id number] [place] [address] 41962- 5312 Dec, Major depressive disorder, single episode, moderate F32.1 and Adjustment disorder with depressed mood F43.21 [place] [address] [place] [id number] [place] [address] 23392- 9154 Nov, Major depressive disorder, single episode, moderate F32.1 [place] [address] [place] [id number] [place] [address] 87807- 5925 Nov, Adjustment disorder with depressed mood F43.21 ; Bipolar 1 disorder, manic, mild F31.11 and Adjustment disorder with anxiety F43.22 [place] [address] [place] [address] 89530- 4742 Oct, [place] [address] [place] [id number] [place] [address] 44810- 6361 Oct, Encounter for counseling regarding contraception Z30.9 ; Initiation of OCP (BCP) Z30.011 ; Routine screening for STI (sexually transmitted infection) Z11.3 and Dysmenorrhea N94.6 [place] [address] [place] [address] 34934- 3840 Sep, Acute upper respiratory infection, unspecified J06.9 ; Other viral agents as the cause of diseases classified elsewhere B97.89 and Post -nasal drip R09.82 [facility] [address] [facility] [id number] [address] Aug, Depressive disorder, not elsewhere classified 311 [facility] [address], [place] [address]- 9298 Jul, Depression, major, recurrent, moderate F33.1 [facility] [address], [place] [address]- 6350 25 Jun, 2015 Major depressive disorder, recurrent episode, moderate 296.32 [facility] [address], [place] [address]- 7092 04 Mar, 2015 Major depression, recurrent 296.30 [facility] [address], [place] [address]- 4992 14 Jan, 2015 [facility] [address] [address]- 5519 Jan, [facility] [address], [place] [address]- 5320 Dec, [facility] [address] [address]- 6787 Dec, [facility] [address] [address]- 1462 Nov, [facility] [address], [place] [address]- 3565 Nov, [facility] [address], [place] [address]- 2612 Oct, [facility] [address] [place] [id number] [address]- 5572 Oct, [facility] [address] 4341 Sep, [facility] [address] [place] [id number] [address]- 9169 Sep, [facility] [address] [place] [id number] [place] [address], [place] [address]- 8040 Sep, [facility] [place] [facility] [address] [id number] [place] [address]- 5655 Sep, [facility] [place] [facility] [address] [id number] [place] [address]68 Sep, [facility] [place] [facility] [address] [id number] [place] [address] Sep, [facility] [place] [facility] [address] [id number] [place] [address]- 9392 Aug, [facility] [place] [facility] [address] [id number] [place] [address]- 2174 Aug, [facility] [place] [facility] [address] [id number] [place] [address]- 1105 Aug, [facility] [place] [facility] [address] [id number] [place] [address]- 8948 Aug, [facility] [place] [facility] [address] [id number] [place] [address]- 0516 Jul, [facility] [place] [facility] [address] [id number] [place] [address]- 3912 Jul, [facility] [place] [facility] [address] [facility] [id number] [place] [address]- 1614 Jul, [facility] [place] [facility] [address] [id number] [place] [address]- 1721 16 Jul, 2014 [facility] [place] [facility] [address] [id number] [place] [address]- 9885 17 Jun, 2014 [facility] [place] [facility] [address] [id number] [place] [address]- 2406 17 Jun, 2014 [facility] [place] [facility] [address] [id number] [place] [address]- 9561 17 Jun, 2014 [facility] [place] [facility] [address] [facility] [id number] [place] 9516 17 Jun, 2014 [facility] [place] [facility] [address] [id number] [place] [address]- 8586 Apr, [facility] [place] [facility] [address] [id number] [place] [address]- 3569 Apr, [facility] [place] [facility] [address] [id number] [place] [address]- 1297 Mar, [facility] [place] [facility] [address] [id number] [place] [address]- 8315 Mar, [facility] [place] [facility] [address] [id number] [place] [address]- 7395 Mar, [facility] [place] [facility] [address] [id number] [place] [address]- 5951 Mar, [facility] [place] [facility] [address] [id number] [place] [address]- 8318 February, [facility] [place] [facility] [address] [id number] [place] [address]- 4499 February, [facility] [place] [facility] [address] [id number] [place] [address]- 2164 February, [facility] [place] [facility] [address] [id number] [place] [address]- 1332 February, [facility] [place] [facility] [address] [id number] [place] [address]- 4351 February, [facility] [place] [facility] [address] [id number] [place] [address]- 9158 February, [facility] [place] [facility] [address] [id number] [place] [address]- 2753 February, [facility] [place] [facility] [address] [id number] [place] [address]- 7082 Jan, [facility] [place] [facility] [address] [id number] [place] [address]- 1273 Jan, [facility] [place] [facility] [address] [id number] [place] [address]- 5836 18 Jan, 2014 [facility] [place] [facility] [address] [id number] [place] [address]- 9279 18 Jan, 2014 [facility] [place] [facility] [address] [id number] [place] [address]- 4456 14 Jan, 2014 [facility] [place] [facility] [address] [id number] [place] [address]- 1719 Jan, [facility] [place] [facility] [address] [id number] [place] [address]- 6039 Jan, [facility] [place] [facility] [address] [id number] [place] [address]- 7944 Jan, [facility] [place] [facility] [address] [id number] [place] [address]- 0659 Oct, [facility] [place] [facility] [address] [id number] [place] [address]- 6004 Oct, [facility] [place] [facility] [address] [id number] [place] [address]- 5171 Sep, [facility] [place] [facility] [address] [id number] [place] [address]- 3775 Sep, [facility] [place] [facility] [address] [id number] [place] [address]- 8727 Jun, [facility] [place] [facility] [address] [id number] [place] [address]- 5405 Jun, [facility] [place] [facility] [address] [id number], [place] [address]- 8233 Oct, [facility] [place] [facility] [address] [id number] [place] [address]- 0120 Sep, [facility] [place] [facility] [address] [id number] [place] [address]- 1017 Sep, [facility] [place] [facility] [address] [id number] [place] [address]- 0905 Jun, [facility] [place] [facility] [address] [id number] [place] [address]- 4127 25 Jun, 2012 [facility] [address] [id number] [place] [address]- 3366 24 Jun, 2012 [facility] [place] [facility] [address] [id number] [place] [address] 2546 20 Jun, 2012 [facility] [address] [id number] [place] [address]- 4416 20 Jun, 2012 [facility] [place] [facility] [address] [id number] [place] [address] 2542 05 Jun, 2012 [facility] [address] [id number] [place] [address]- 7867 Apr, [facility] [place] [facility] [address] [id number] [place] [address]- 4456 29 Mar, 2012 [facility] [address] [id number] [place] [address]- 3602 Mar, [facility] [address] [id number] [place] [address]- 3780 16 Dec, 2011 [facility] [address] [id number] [place] [address]- 1938 Oct, [facility] [address] [id number] [place] [address]- 9642 15 Aug, 2011 [facility] [place] [facility] [address] [id number] [place] [address]- 4725 Aug, [facility] [place] [facility] [address] [id number] [place] [address]- 2612 Aug, [facility] [place] [facility] [address] [id number] [place] [address]- 3231 07 Aug, 2011 [facility] [place] [facility] [address] [id number] [place] [address]- 2641 Aug, [facility] [place] [facility] [address] [id number] [place] [address]- 6277 Jul, [facility] [address] [facility] [id number] [address]- 0465 Jul, [facility] [id number], [place] [address]- 3822 Jun, [facility] [address] [id number], [place] [address]- 4015 Jul, [facility] [address], [place] [address]- 5387 Aug, [facility] [id number], [place] [address]- 4365 Aug, [place] [address] [place] [address]- 8198 Oct, IMMUNIZATIONS No Known Immunizations SOCIAL HISTORY Never Assessed REASON FOR VISIT sore throat since yesterday...got worse this am. stepdaughter has strep. anjel PLAN OF CARE Activity Details Follow Up prn Reason: VITAL SIGNS Height 63.75 in 2018-01-03 Weight 121.6 lbs 2018-01-03 Temperature 98.4 degrees Fahrenheit 2018-01-03 Heart Rate 74 bpm 2018-01-03 Respiratory Rate 20 2018-01-03 BMI 21.03 kg/m2 2018-01-03 Blood pressure systolic 104 mmHg 2018-01-03 Blood pressure diastolic 66 mmHg 2018-01-03 MEDICATIONS Medication Instructions Dosage Frequency Start Date End Date Duration Status Zoloft 50 MG Orally Once a day 0.5 tablet every night for one week then take 1 tablet every night 24h Oct, 30 day(s) Not-Taking Bactrim DS 800-160 MG Orally Twice a day 1 tablet 12h Active HydrOXYzine HCl 10 MG Orally three times a day as needed for anxiety 1 tablet Oct, Active Abilify 2 MG Orally Once a day 1 tablet 24h Oct, 30 day(s) Active RESULTS Name Result Date Reference Range STREP A (IN HOUSE) 2018-01-03 STREP A negative Control + Lot # [id number] Exp date 07 19 18 PROCEDURES Procedure Date Ordered Result Body Site STREP A ASSAY W/OPTIC January 03, 2018 INSTRUCTIONS MEDICATIONS ADMINISTERED No Known Medications MEDICAL (GENERAL) HISTORY Type Description Date Medical History Adjustment disorder with mixed disturbance of emotions and conduct Medical History Major depressive disorder, recurrent episode, moderate (past) Medical History Adjustment disorder with depressed mood (past) Medical History iron deficiency Medical History Bipolar Surgical History 2 natural births Hospitalization History childbirth 01/2014
--- OUTSIDE RECORDS SUMMARY | 2018-05-26 18:50 | XMS REPORT ---
Author Author SASHA OBDULIA Organization [facility] Address [address] [place] [address] Care Team Providers Care Ribbon Weaver Name Role Phone AINSLEYMARIELOS LIPSCOMBA Unavailable PROBLEMS Type Condition ICD9-CM Code KQG89-MX Code Onset Dates Condition Status SNOMED Code Problem Bipolar 1 disorder, manic, mild F31.11 Active 90737365 Problem Adjustment disorder with depressed mood F43.21 Active 031298909 Problem Seasonal allergies J30.2 Active 141896519 Problem Anxiety F41.9 Active 38634879 Problem Normal in second trimester Z34.92 Active 71858908 Problem Normal in first trimester Z34.91 Active 08844612 Problem Mood disorder F39 Active 55683223 Problem Adjustment disorder with anxiety F43.22 Active [id number] ALLERGIES No Known Allergies ENCOUNTERS Encounter Location Date Diagnosis [facility] [id number] [place] [address] 76850- 4331 Mar, Adjustment disorder with depressed mood F43.21 and Anxiety F41.9 [facility] [id number] [place] [address] 00066 -0258 February, Seasonal allergies J30.2 [facility] [id number] [place] [address] 72696- 7610 February, [facility] [id number] [place] [address] 54392 -2137 Dec, Seasonal allergic rhinitis, unspecified trigger J30.2 and Sore throat J02.9 [facility] [id number] [place] [address] 65931- 6627 Oct, Mood disorder F39 [facility] [id number] [place] [address] 23783- 4153 02 Estrada, 2018 Mood disorder F39 [place] [id number] [place] [address] 82475- 6614 Sep, Adjustment disorder with depressed mood F43.21 ; Screening cholesterol level Z13.220 and Screening for diabetes mellitus Z13.1 [facility] [id number] [place] [address] 84517- 1619 Sep, Adjustment disorder with anxiety F43.22 and Adjustment disorder with depressed mood F43.21 [facility] [id number] [place] [address] 52733 -8579 Aug, Pharyngitis due to other organism J02.8 [facility] [address] 97831 -7279 10 Aug, 2017 Sore throat J02.9 and Acute nasopharyngitis (common cold) J00 [facility] [id number] [place] [address] 36646 -0064 19 Mar, 2017 Acute nasopharyngitis J00 [facility] [id number] [place] [address] 33438- 7545 07 Mar, 2017 Adjustment disorder with anxiety F43.22 ; Adjustment disorder with depressed mood F43.21 and Bipolar 1 disorder, manic, mild F31.11 [facility] [id number] [place] [address] 48874- 0706 Mar, [facility] [id number] [place] [address] 28014- 2463 08 Nov, 2016 39 weeks gestation of Z3A.39 [facility] [id number] [place] [address] 73230- 6627 Nov, care in third trimester Z34.93 [facility] [id number] [place] [address] 42419- 0839 Oct, Normal in third trimester Z34.93 [facility] [id number] [place] [address] 60435- 9460 Oct, [place] [address] [address] 2028 Oct, Third trimester at less than 36 weeks Z33.1 [facility] [id number] [place] [address] 31052- 4981 Oct, [facility] [id number] [place] [address] [id number] Oct, [facility] [id number] [place] [address] 70430- 8816 Oct, Normal in third trimester Z34.93 [facility] [id number] [place] [address] 35063- 6933 Sep, Normal in third trimester Z34.93 [facility] [id number] [place] [address] 00365- 3337 Sep, Third trimester at less than 36 weeks Z33.1 and Encounter for immunization Z23 [facility] [id number] [place] [address] 57030- 0099 Aug, Adjustment disorder with anxiety F43.22 and Adjustment disorder with depressed mood F43.21 [facility] [id number] [place] [address] 99697- 4151 Aug, Abnormal glucose tolerance test in O99.810 [place] [address] [place] [address] 74284- 7962 Aug, [facility] [id number] [place] [address] 12990- 3352 Aug, Normal in second trimester Z34.92 [facility] [address] [place] [address] 99020 -6588 Aug, Acute upper respiratory infection, unspecified J06.9 and Other viral agents as the cause of diseases classified elsewhere B97.89 [facility] [address] [place] [address] 50625- 0773 Jul, Adjustment disorder with depressed mood F43.21 and Bipolar 1 disorder, manic, mild F31.11 [facility] [address] [address]- 1050 Jul, Bipolar 1 disorder, manic, mild F31.11 ; Adjustment disorder with anxiety F43.22 and Adjustment disorder with depressed mood F43.21 [facility] [id number] [place] [address] 65663- 7194 Jul, Normal in second trimester Z34.92 [facility] [id number] [place] [address] 49935 -0811 Jul, Contact dermatitis, unspecified contact dermatitis type, unspecified trigger L25.9 [facility] [id number] [place] [address] 82805- 0615 Jul, Adjustment disorder with depressed mood F43.21 ; Adjustment disorder with anxiety F43.22 and Bipolar 1 disorder, manic, mild F31.11 [facility] [id number] [place] [address] 41140- 8149 Jul, Adjustment disorder with depressed mood F43.21 and Bipolar 1 disorder, manic, mild F31.11 [facility] [id number] [place] [address] 48893- 5383 Jun, Adjustment disorder with depressed mood F43.21 and Bipolar 1 disorder, manic, mild F31.11 [facility] [id number] [place] [address] 38225- 2765 Jun, Adjustment disorder with depressed mood F43.21 ; Bipolar 1 disorder, manic, mild F31.11 and Anxiety, generalized F41.1 [facility] [id number] [place] [address] 00790- 7681 Jun, Normal in second trimester Z34.92 ; 18 weeks gestation of Z3A.18 and Encounter for immunization Z23 [facility] [id number] [place] [address] 94740- 5021 07 Jun, 2016 Normal in first trimester Z34.91 [place] [address], [place] [address]- 0225 24 May, 2016 care in second trimester Z34.92 [facility] [address] [address]- 8456 May, [place] [address], [place] [address]- 6255 May, [place] [id number] [place] [address] 58483- 0323 May, Major depressive disorder, recurrent, moderate F33.1 [place] [address] [place] [address] 11813- 6034 10 May, 2016 Normal in first trimester Z34.91 ; Pap smear for cervical cancer screening Z12.4 ; Screen for STD (sexually transmitted disease) Z11.3 and 12 weeks gestation of Z3A.12 [place] [address], [place] [address]- 3014 08 May, 2016 12 weeks gestation of Z3A.12 ; Unspecified abdominal pain R10.9 and Other specified related conditions, unspecified trimester O26.899 [place] [address] [address]- 2814 Apr, [place] [address] [address]- 4835 Apr, [place] [address] [address]- 8095 February, [place] [address] [address]- 7321 February, Bipolar 1 disorder, manic, mild F31.11 and Adjustment disorder with depressed mood F43.21 [place] [address], [place] [address]- 8696 Dec, Major depressive disorder, single episode, moderate F32.1 ; Adjustment disorder with depressed mood F43.21 and Bipolar 1 disorder, manic, mild F31.11 [place] [address] [place] [address] 78015- 1857 Dec, Adjustment disorder with depressed mood F43.21 ; Major depressive disorder, single episode, moderate F32.1 and Bipolar 1 disorder, manic, mild F31.11 [place] [address] [place] [address] 47758- 2699 Dec, Right hand pain M79.641 [place] [id number] [place] [address] 13022- 2970 Dec, Major depressive disorder, single episode, moderate F32.1 and Adjustment disorder with depressed mood F43.21 [address] [id number] [place] [address] 62129- 0177 Nov, Major depressive disorder, single episode, moderate F32.1 [address] [id number] [place] [address] 73880- 1944 Nov, Adjustment disorder with depressed mood F43.21 ; Bipolar 1 disorder, manic, mild F31.11 and Adjustment disorder with anxiety F43.22 [facility] [id number] [place] [address] 42036- 6575 Oct, [facility] [id number] [place] [address] 71250- 6551 Oct, Encounter for counseling regarding contraception Z30.9 ; Initiation of OCP (BCP) Z30.011 ; Routine screening for STI (sexually transmitted infection) Z11.3 and Dysmenorrhea N94.6 [facility] [id number] [place] [address] 40456- 7670 Sep, Acute upper respiratory infection, unspecified J06.9 ; Other viral agents as the cause of diseases classified elsewhere B97.89 and Post -nasal drip R09.82 [place] [address] [place] [address] 62826- 9674 Aug, Depressive disorder, not elsewhere classified [address] [address] [address]- 3798 Jul, Depression, major, recurrent, moderate F33.1 [facility] [address] [address]- 1213 Jun, Major depressive disorder, recurrent episode, moderate 296.32 [facility] [address] [address]- 6268 Mar, Major depression, recurrent 296.30 [facility] [address] [address]- 3839 Jan, [facility] [address] [place] [address] 41291- 3146 Jan, [facility] [address], [place] [address]- 7444 Dec, [facility] [address] [place] [address] 64885- 0798 Dec, [facility] [address], [place] [address]- 0427 Nov, [facility] [address] [address]- 8453 Nov, [facility] [address] [address]- 6436 Oct, [facility] [address], [place] [address]- 6179 Oct, [facility] [address] [address]- 3605 Sep, [facility] [address] 6711 Sep, [facility] [address], [place] [address]- 9817 Sep, [facility] [id number] 9114 Sep, [facility] [place] [facility] [address] [id number] [place] [address]- 0245 Sep, [facility] [place] [facility] [address] [id number] [place] [address]- 7712 Sep, [facility] [place] [facility] [address] [id number] [place] [address]- 5867 Aug, [facility] [place] [facility] [address] [id number] [place] [address]- 7539 Aug, [facility] [place] [facility] [address] [id number] [place] [address]- 3760 Aug, [facility] [place] [facility] [address] [id number] [place] [address]- 5803 Aug, [facility] [place] [facility] [address] [id number] [place] [address]- 2999 Jul, [facility] [place] [facility] [address] [id number] [place] [address]- 9177 Jul, [facility] [place] [facility] [address] [id number] [place] [address]- 8796 Jul, [facility] [place] [facility] [address] [id number] [place] [address]- 3580 Jul, [facility] [place] [facility] [address] [id number] [place] [address]- 8170 Jun, [facility] [place] [facility] [address] [id number] [place] [address]- 2916 Jun, [facility] [place] [facility] [address] [id number] [place] [address]- 2410 Jun, [facility] [place] [facility] [address] [id number] [place] [address]- 6067 Jun, [facility] [place] [facility] [address] [id number] [place] [address]- 0840 Apr, [facility] [place] [facility] [address] [id number] [place] [address]- 4947 Apr, [facility] [place] [facility] [address] [id number] [place] [address]- 3520 Mar, [facility] [place] [facility] [address] [id number] [place] 8714 Mar, [facility] [place] [facility] [address] [id number] [place] [address]- 3376 Mar, [facility] [place] [facility] [address] [id number] [place] [address]- 8243 Mar, [facility] [place] [facility] [address] [id number] [place] [address]- 8245 February, [facility] [place] [facility] [address] [id number] [place] [address]- 7708 February, [facility] [place] [facility] [address] [id number] [place] [address]- 4537 February, [facility] [place] [facility] [address] [id number] [place] [address]- 5457 February, [facility] [place] [facility] [address] [id number] [place] [address]- 6149 February, [facility] [place] [facility] [address] [id number] [place] [address]- 0863 February, [facility] [place] [facility] [address] [id number] [place] [address]- 7153 February, [facility] [place] [facility] [address] [id number] [place] [address]- 5532 Jan, [facility] [place] [facility] [address] [id number] [place] [address]- 3424 Jan, [facility] [place] [facility] [address] [id number] [place] [address]- 9415 Jan, [facility] [place] [facility] [address] [id number] [place] [address]- 1413 Jan, [facility] [place] [facility] [address] [id number] [place] [address]- 2919 14 Jan, 2014 [facility] [address] [id number] [place] [address]- 8662 14 Jan, 2014 [facility] [address] [id number] [place] [address]- 8230 11 Jan, 2014 [facility] [address] [id number] [place] [address]- 3268 11 Jan, 2014 [facility] [address] [id number] [place] [address]- 2265 14 Oct, 2013 [facility] [address] [id number] [place] [address]- 8654 14 Oct, 2013 [facility] [address] [id number] [place] [address]- 1390 31 Sep, 2013 [facility] [address] [id number] [place] [address]- 6639 31 Sep, 2013 [facility] [address] [id number] [place] [address]- 9771 11 Jun, 2013 [facility] [address] [id number] [place] [address]- 4457 04 Jun, 2013 [facility] [address] [id number] [place] [address]- 5445 27 Oct, 2012 [facility] [address] [id number] [place] [address]- 4564 08 Sep, 2012 [facility] [address] [id number] [place] [address]- 4188 08 Sep, 2012 [facility] [address] [id number] [place] [address]- 0529 26 Jun, 2012 [facility] [address] [id number] [place] [address]- 1551 25 Jun, 2012 [facility] [address] [id number] [place] [address]- 1052 24 Jun, 2012 [facility] [place] [facility] [address] [id number] [place] [address]- 0978 20 Jun, 2012 [facility] [place] [facility] [address] [id number] [place] [address]- 0153 20 Jun, 2012 [facility] [place] [facility] [address] [id number] [place] [address]- 9723 05 Jun, 2012 [facility] [place] [facility] [address] [id number] [place] [address]- 8560 Apr, [facility] [place] [facility] [address] [id number] [place] [address]- 5420 Mar, [facility] [place] [facility] [address] [id number] [place] [address]- 5178 Mar, [facility] [place] [facility] [address] [id number] [place] [address]- 4298 Dec, [facility] [place] [facility] [address] [id number], [place] [address]- 8573 Oct, [facility] [place] [facility] [address] [id number] [place] [address]- 0633 Aug, [facility] [place] [facility] [address] [id number], [place] [address]- 8275 Aug, [facility] [place] [facility] [address] [id number], [place] [address]- 0821 Aug, [facility] [place] [facility] [address] [id number], [place] [address]- 3522 07 Aug, 2011 [facility] [place] [facility] [address] [id number], [place] [address]- 8402 Aug, [facility] [place] [facility] [address] [id number], [place] [address]- 7099 24 Jul, 2011 [facility] [place] [facility] [address] [id number], [place] [address]- 6988 Jul, [facility] [place] [facility] [address] [id number], [place] [address]- 9830 Jun, [facility] [address] [facility] [id number], [place] [address]- 5082 Jul, [facility] [address] [facility] [id number], [place] [address]- 5876 Aug, [facility] [address] [facility] [id number], [place] [address]- 0713 Aug, [facility] [address] [facility] [id number], [place] [address]- 3884 Oct, IMMUNIZATIONS No Known Immunizations SOCIAL HISTORY Never Assessed REASON FOR VISIT intake PLAN OF CARE Activity Details Follow Up 4 Weeks Reason: VITAL SIGNS Height 63.75 in 2017-10-21 Weight 112.0 lbs 2017-10-21 Heart Rate 72 bpm 2017-10-21 Respiratory Rate 20 2017-10-21 BMI 19.37 kg/m2 2017-10-21 Blood pressure systolic 98 mmHg 2017-10-21 Blood pressure diastolic 64 mmHg 2017-10-21 MEDICATIONS Medication Instructions Dosage Frequency Start Date End Date Duration Status Zoloft 50 MG Orally Once a day 0.5 tablet every night for one week then take 1 tablet every night 24h Oct, 30 day(s) Active HydrOXYzine HCl 10 MG Orally three times a day as needed for anxiety 1 tablet Oct, 30 days Active RESULTS No Results PROCEDURES No Known procedures INSTRUCTIONS MEDICATIONS ADMINISTERED No Known Medications MEDICAL (GENERAL) HISTORY Type Description Date Medical History Adjustment disorder with mixed disturbance of emotions and conduct Medical History Major depressive disorder, recurrent episode, moderate (past) Medical History Adjustment disorder with depressed mood (past) Medical History iron deficiency Medical History Bipolar Surgical History 2 natural births Hospitalization History childbirth 01/2014
[2018-05-26] MEDS ORDERED: HYDR25CA PO (18:51)
--- NOTE | 2018-05-26 18:51 | ED Psychosocial ---
General Chief Complaint: Psych/Social Disorder Stated Complaint: ANXIETY ATTACK Source: patient Exam Limitations: no limitations History of Present Illness Date Seen by Provider: May 26, 2018 Time Seen by Provider: 18:49 Initial Comments To ER with reports of an anxiety attack. She arrives per EMS from home. She normally takes 3 per day but is only taking one of them today. She became very anxious when she was thinking about her daughter. Timing/Duration: this afternoon Severity: mild Associated Symptoms: anxiety Allergies and Home Medications Allergies Coded Allergies: No Known Drug Allergies (Unverified , 09/26/17) Home Medications Hydroxyzine Pamoate 25 Mg Capsule, 25 MG PO Q6H PRN for ANXIETY Prescribed by: GLO BLOOM on 05/26/18 185 Phenazopyridine HCl 100 Mg Tablet, 100 MG PO TID, (Reported) Sulfamethoxazole/Trimethoprim 1 Each Tablet, 1 EACH PO BID, (Reported) Patient Home Medication List Home Medication List Reviewed: Yes Constitutional: see HPI EENTM: see HPI Respiratory: no symptoms reported Cardiovascular: no symptoms reported Genitourinary: no symptoms reported Musculoskeletal: no symptoms reported Skin: no symptoms reported Psychiatric/Neurological: See HPI, Anxiety Past Rerljdw-Lqvzuv-Yyfrmj Hx Patient Social History Type Used: Cigarettes Former Smoker, Quit: Mar 20, 2018 2nd Hand Smoke Exposure: No Recent Hopitalizations: No Immunizations Up To Date Tetanus Booster (TDap): Unknown PED Vaccines UTD: No Date of Influenza Vaccine: Oct 04, 2016 Seasonal Allergies Seasonal Allergies: Yes Past Medical History Surgeries: No Respiratory: No Asthma Currently Using CPAP: No Currently Using BIPAP: No Cardiac: No Neurological: No Reproductive Disorders: No Female Reproductive Disorders: Denies Sexually Transmitted Disease: Yes HIV/AIDS: No Genitourinary: Yes UTI-Chronic Gastrointestinal: Yes Gastroesophageal Reflux Musculoskeletal: No Endocrine: No HEENT: No Cancer: No Psychosocial: Yes (panic attacks) Anxiety Integumentary: No Blood Disorders: No Family Medical History Family history: Asthma 03 MOTHER Family history: Diabetes mellitus (type 2 diabetes) 03 MOTHER History of - disorder (anxiety, Brother has heart murmur) 03 MOTHER No Pertinent Family Hx Physical Exam Vital Signs - First Documented 05/26/18 18:45 Temp 98.1 Pulse 92 Resp 18 B/P (MAP) 129/61 (83) Pulse Ox 99 Capillary Refill : Height, Weight, BMI Height: 5'3.00" Weight: 120lbs. 0oz. 54.705188sr; 26.3 BMI Method:Stated General Appearance: WD/WN, no apparent distress HEENT: PERRL/EOMI, normal ENT inspection Neck: non-tender, full range of motion Respiratory: normal breath sounds, no respiratory distress, no accessory muscle use Cardiovascular: regular rate, rhythm, no murmur Gastrointestinal: normal bowel sounds, non tender, soft Neurologic/Psychiatric: alert, normal mood/affect Appearance/Memory: appropriate appearance, appropriate insight Behavior/Eye Contact: cooperative, good eye contact Thoughts/Hallucinations: normal thought pattern, no apparent hallucination Skin: normal color, warm/dry Progress/Results/Core Measures Results/Orders My Orders Orders - GLO BLOOM APRN Hydroxyzine Oral (Vistaril Capsule) (05/26/18 19:00) Medications Given in ED Current Medications Medications Dose Ordered Sig/Adelita Route Start Time Stop Time Status Last Admin Dose Admin Hydroxyzine Pamoate 25 mg ONCE ONCE PO 05/26/18 19:00 05/26/18 19:01 DC 05/26/18 19:25 25 MG Vital Signs/I&O 05/26/18 18:45 Temp 98.1 Pulse 92 Resp 18 B/P (MAP) 129/61 (83) Pulse Ox 99 Departure Impression Primary Impression: Anxiety Disposition: 01 HOME, SELF-CARE Condition: Improved Departure-Patient Inst. Decision time for Depature: 19:10 Referrals: [facility] (PCP) Primary Care Physician IVY SWIFT APRN (Family) Primary Care Physician Patient Instructions: Panic Disorder (DC) Add. Discharge Instructions: 1. Medication as directed 2. Return to ER for any concerns All discharge instructions reviewed with patient and/or family. Voiced understanding. Scripts Hydroxyzine Pamoate (Vistaril) 25 Mg Capsule 25 MG PO Q6H PRN for ANXIETY, #30 CAP Prov: GLO BLOOM APRN 05/26/18 GLO BLOOM APRN May 26, 2018 18:51
--- OUTSIDE RECORDS SUMMARY | 2018-05-26 18:52 | XMS REPORT ---
Author Author JAMISON IVY Organization [facility] Address [address] [place] [address] Care Team Providers Care Graphic Design Specialist Name Role Phone IVY SWIFT Unavailable PROBLEMS Type Condition ICD9-CM Code [id number] Code Onset Dates Condition Status SNOMED Code Problem Adjustment disorder with depressed mood F43.21 Active 753369792 Problem Seasonal allergies J30.2 Active 519998026 Problem Mood disorder F39 Active 12957917 Problem Normal in first trimester Z34.91 Active 01585186 Problem Bipolar 1 disorder, manic, mild F31.11 Active 13727394 Problem Adjustment disorder with anxiety F43.22 Active 42778517 Problem Normal in second trimester Z34.92 Active 72520614 ALLERGIES No Known Allergies ENCOUNTERS Encounter Location Date Diagnosis [facility] [address] [address] 14 Mar, 2018 [facility] [address] [address] February, Seasonal allergies J30.2 [facility] [address] [place] [id number] [place] [address] February, [facility] [id number] [place] [address] Dec, Seasonal allergic rhinitis, unspecified trigger J30.2 and Sore throat J02.9 [facility] [address] [address] Oct, Mood disorder F39 [facility] [id number] [place] [address]- 1598 Oct, Mood disorder F39 [facility] [address] [address] Sep, Adjustment disorder with depressed mood F43.21 ; Screening cholesterol level Z13.220 and Screening for diabetes mellitus Z13.1 [place] [address] [address] Sep, Adjustment disorder with anxiety F43.22 and Adjustment disorder with depressed mood F43.21 [facility] [address] [address] Aug, Pharyngitis due to other organism J02.8 [facility] [place] [address] [address] 10 Aug, 2017 Sore throat J02.9 and Acute nasopharyngitis (common cold) J00 [facility] [place] [id number] [place] [address] Mar, Acute nasopharyngitis J00 [place] [address] [address] Mar, Adjustment disorder with anxiety F43.22 ; Adjustment disorder with depressed mood F43.21 and Bipolar 1 disorder, manic, mild F31.11 [place] [address] [address] Mar, [place] [address] [address] Nov, 39 weeks gestation of Z3A.39 [place] [address] [address] Nov, care in third trimester Z34.93 [place] [address] [address] Oct, Normal in third trimester Z34.93 [place] [address] [address] [id number] [place] [address]244- 8692 Oct, [place] [address] [address] Oct, Third trimester at less than 36 weeks Z33.1 [facility] [address] [address] Oct, [facility] [address] [place] [address] [id number] [place] [id number] Oct, [facility] [address], [place] [address] Oct, Normal in third trimester Z34.93 [facility] [id number] [place] [address]- 38[address] Sep, Normal in third trimester Z34.93 [place] [id number] [place] [address]39- 1506 Sep, Third trimester at less than 36 weeks Z33.1 and Encounter for immunization Z23 [place] [id number] [place] [address]887- 5394 Aug, Adjustment disorder with anxiety F43.22 and Adjustment disorder with depressed mood F43.21 [facility] [address] [place] [address] 6[address]- 2465 Aug, Abnormal glucose tolerance test in O99.810 [facility] [address] [place] [address] 12689- 7966 Aug, [facility] [address] [place] [address]40- 8638 Aug, Normal in second trimester Z34.92 [facility] IN [facility] [address] [place] [address] Aug, Acute upper respiratory infection, unspecified J06.9 and Other viral agents as the cause of diseases classified elsewhere B97.89 [facility] [address] [place] [address] 30[address]- 1065 Jul, Adjustment disorder with depressed mood F43.21 and Bipolar 1 disorder, manic, mild F31.11 [facility] [id number] [place] [address] 42665- 8283 Jul, Bipolar 1 disorder, manic, mild F31.11 ; Adjustment disorder with anxiety F43.22 and Adjustment disorder with depressed mood F43.21 [facility] [id number] [place] [address]86- 5392 Jul, Normal in second trimester Z34.92 [facility] IN [facility] [address] [address] Jul, Contact dermatitis, unspecified contact dermatitis type, unspecified trigger L25.9 [place] [address] [address] Jul, Adjustment disorder with depressed mood F43.21 ; Adjustment disorder with anxiety F43.22 and Bipolar 1 disorder, manic, mild F31.11 [place] [address] [address]- [address] Jul, Adjustment disorder with depressed mood F43.21 and Bipolar 1 disorder, manic, mild F31.11 [place] [address] [address]- [address] Jun, Adjustment disorder with depressed mood F43.21 and Bipolar 1 disorder, manic, mild F31.11 [place] [address] [id number] [place] [address] 62299- 1008 Jun, Adjustment disorder with depressed mood F43.21 ; Bipolar 1 disorder, manic, mild F31.11 and Anxiety, generalized F41.1 [place] [id number] [place] [address]19- 9159 Jun, Normal in second trimester Z34.92 ; 18 weeks gestation of Z3A.18 and Encounter for immunization Z23 [facility] [address] [address] 07 Jun, 2016 Normal in first trimester Z34.91 [place] [address] [address] May, care in second trimester Z34.92 [place] [address], [place] [address] May, [place] [address], [place] [address] May, [place] [address], [place] [address] May, Major depressive disorder, recurrent, moderate F33.1 [place] [address], [place] [address] 10 May, 2016 Normal in first trimester Z34.91 ; Pap smear for cervical cancer screening Z12.4 ; Screen for STD (sexually transmitted disease) Z11.3 and 12 weeks gestation of Z3A.12 [place] [address], [place] [address] 08 May, 2016 12 weeks gestation of Z3A.12 ; Unspecified abdominal pain R10.9 and Other specified related conditions, unspecified trimester O26.899 [place] [address], [place] [address]- [address] Apr, [place] [address] [place] [address] 45816- 8283 Apr, [place] [address], [place] [address] February, [place] [address] [place] [id number] [place] [address]- [address] February, Bipolar 1 disorder, manic, mild F31.11 and Adjustment disorder with depressed mood F43.21 [place] [address], [place] [address] Dec, Major depressive disorder, single episode, moderate F32.1 ; Adjustment disorder with depressed mood F43.21 and Bipolar 1 disorder, manic, mild F31.11 [place] [address], [place] [address]- [address] Dec, Adjustment disorder with depressed mood F43.21 ; Major depressive disorder, single episode, moderate F32.1 and Bipolar 1 disorder, manic, mild F31.11 [place] [address] [place] [address]- 2135 Dec, Right hand pain M79.641 [place] [id number] [place] [address] 10443- 7366 Dec, Major depressive disorder, single episode, moderate F32.1 and Adjustment disorder with depressed mood F43.21 [place] [id number] [place] [address]99- 8315 Nov, Major depressive disorder, single episode, moderate F32.1 [place] [id number] [place] [address]13- 5019 Nov, Adjustment disorder with depressed mood F43.21 ; Bipolar 1 disorder, manic, mild F31.11 and Adjustment disorder with anxiety F43.22 [place] [id number] [place] [address]- [address]17 Oct, [address] [address] Oct, Encounter for counseling regarding contraception Z30.9 ; Initiation of OCP (BCP) Z30.011 ; Routine screening for STI (sexually transmitted infection) Z11.3 and Dysmenorrhea N94.6 [place] [id number] [place] [address]17- 6122 Sep, Acute upper respiratory infection, unspecified J06.9 ; Other viral agents as the cause of diseases classified elsewhere B97.89 and Post -nasal drip R09.82 [place] [id number] [place] [address] 68850- 7946 Aug, Depressive disorder, not elsewhere classified [address] [place] [id number] [place] [address] 81361- 7859 Jul, Depression, major, recurrent, moderate F33.1 [facility] [address], [place] [address] 25 Jun, 2015 Major depressive disorder, recurrent episode, moderate 296.32 [facility] [address], [place] [address]- 7560 Mar, Major depression, recurrent 296.30 [facility] [address] [place] [address] 03602- 2046 14 Jan, 2015 [facility] [id number] [place] [address] 14232- 0444 Jan, [facility] [id number] [place] [address] 00600- 2428 Dec, [facility] [id number] [place] [address] 34726- 5669 Dec, [facility] [id number] [place] [address] 79828- 9058 Nov, [facility] [address], [place] [address]- 2716 Nov, [facility] [address], [place] [address]- 9022 Oct, [facility] [address], [place] [address]- 2028 Oct, [facility] [address], [place] [address]- 5479 Sep, [facility] [address], [place] [address]- 1105 Sep, [facility] [address] 7[address] Sep, [facility] [address] 5594 Sep, [facility] [address], [place] [address]- 1018 Sep, [facility] [place] [facility] [address] [id number] [place] [address]- 8287 Sep, [facility] [place] [facility] [address] [id number] [place] [address]- 8468 Aug, [facility] [place] [facility] [address] [id number] [place] [address]- 1443 Aug, [facility] [place] [facility] [address] [id number] [place] [address]- 3567 Aug, [facility] [place] [facility] [address] [id number] [place] [address]- 8752 Aug, [facility] [place] [facility] [address] [id number] [place] [address]- 8368 Jul, [facility] [place] [facility] [address] [id number] [place] [address]- 2300 Jul, [facility] [place] [facility] [address] [id number] [place] [address]- 0888 Jul, [facility] [place] [facility] [address] [id number] [place] [address]- 1038 Jul, [facility] [place] [facility] [address] [id number] [place] [address]- 9761 Jun, [facility] [place] [facility] [address] [id number] [place] [address]- 3862 Jun, [facility] [place] [facility] [address] [id number] [place] [address]- 5091 Jun, [facility] [place] [facility] [address] [id number] [place] [address]- 6831 Jun, [facility] [place] [facility] [address] [id number] [place] [address]- 3566 Apr, [facility] [place] [facility] [address] [id number] [place] [address]- 3566 Apr, [facility] [place] [facility] [address] [id number] [place] [address]- 9614 Mar, [facility] [place] [facility] [address] [id number] [place] [address]- 5802 Mar, [facility] [place] [facility] [address] [id number] [place] [address]- 4535 Mar, [facility] [place] [facility] [address] [id number] [place] [address]- 7072 Mar, [facility] [place] [facility] [address] [id number] [place] [address]- 4608 February, [facility] [place] [facility] [address] [id number] [place] [address]- 7292 February, [facility] [place] [facility] [address] [id number] [place] [address]- 6004 February, [facility] [place] [facility] [address] [id number] [place] [address]- 4358 February, [facility] [place] [facility] [address] [id number] [place] [address]- 0765 February, [facility] [place] [facility] [address] [id number] [place] [address]- 0761 February, [facility] [place] [facility] [address] [id number] [place] [address]- 1421 February, [facility] [place] [facility] [address] [id number] [place] [address]- 0034 Jan, [facility] [place] [facility] [address] [id number] [place] [address]- 4025 24 Jan, 2014 [facility] [place] [facility] [address] [id number] [place] [address]- 5240 Jan, [facility] [place] [facility] [address] [id number] [place] [address]- 8348 Jan, [facility] [place] [facility] [address] [id number] [place] [address]- 0959 Jan, [facility] [place] [facility] [address] [id number] [place] [address]- 3662 14 Jan, 2014 [facility] [place] [facility] [address] [id number] [place] [address]- 1623 11 Jan, 2014 [facility] [place] [facility] [address] [id number] [place] [address]- 1401 Jan, [facility] [place] [facility] [address] [id number] [place] [address]- 4680 14 Oct, 2013 [facility] [place] [facility] [address] [id number] [place] [address]- 1227 14 Oct, 2013 [facility] [place] [facility] [address] [id number] [place] [address]- 6501 Sep, [facility] [place] [facility] [address] [id number] [place] [address]- 2592 Sep, [facility] [place] [facility] [address] [id number] [place] [address]- 5102 11 Jun, 2013 [facility] [place] [facility] [address] [id number] [place] [address]- 9751 04 Jun, 2013 [facility] [place] [facility] [address] [id number] [place] [address]- 2638 Oct, [facility] [place] [facility] [address] [id number] [place] [address]- 4484 Sep, [facility] [place] [facility] [address] [id number] [place] [address]- 5019 08 Sep, 2012 [facility] [place] [facility] [address] [id number] [place] [address]- 7307 26 Jun, 2012 [facility] [place] [facility] [address] [id number] [place] [address]- 2546 25 Jun, 2012 [facility] [place] [facility] [address] [id number] [place] [address]- 5221 24 Jun, 2012 [facility] [place] [facility] [address] [id number] [place] [address]- 7289 20 Jun, 2012 [facility] [place] [facility] [address] [id number] [place] [address]- 4989 20 Jun, 2012 [facility] [place] [facility] [address] [id number] [place] [address]- 0659 05 Jun, 2012 [facility] [place] [facility] [address] [id number] [place] [address]- 6433 Apr, [facility] [place] [facility] [address] [id number] [place] [address]- 2425 Mar, [facility] [place] [facility] [address] [id number] [place] [address]- 5174 Mar, [facility] [place] [facility] [address] [id number] [place] [address]- 1310 Dec, [facility] [place] [facility] [address] [id number] [place] [address]- 8462 Oct, [facility] [place] [facility] [address] [id number], [place] [address]- 8183 15 Aug, 2011 [facility] [place] [facility] [address] [id number], [place] [address]- 3374 Aug, [facility] [place] [facility] [address] [id number], [place] [address]- 6548 Aug, [facility] [place] [facility] [address] [id number], [place] [address]- 3631 Aug, [facility] [place] [facility] [address] [id number], [place] [address]- 0807 Aug, [facility] [place] [facility] [address] [id number] [place] [address]- 0957 24 Jul, 2011 [facility] [place] [facility] [address] [id number], [place] [address]- 6138 Jul, [facility] [place] [facility] [address] [id number], [place] [address]- 7055 15 Jun, 2011 [facility] [place] [facility] [address] [facility] [id number] [place] [address]- 6202 Jul, [facility] [address] [facility] [id number][place] [address]003 Aug, [facility] [address] [facility] [id number][place] 3654 Aug, [facility] [address] [facility] [id number], [place] [address]- 2680 Oct, IMMUNIZATIONS No Known Immunizations SOCIAL HISTORY Never Assessed REASON FOR VISIT Establish Care--tcuppeFreddy, -Requesting lab panel concern that she is diabetic, -wanting to change anxiety medication. Medication caused her to be sick to her stomach. Pt was prescribed Hydroxyzine Pamoate 25mg PLAN OF CARE Activity Details Follow Up 3 Months Reason:CHM/ VITAL SIGNS Height 63.75 in 2017-10-16 Weight 117.1 lbs 2017-10-16 Temperature 97.8 degrees Fahrenheit 2017-10-16 Heart Rate 84 bpm 2017-10-16 Respiratory Rate 20 2017-10-16 BMI 20.26 kg/m2 2017-10-16 Blood pressure systolic 110 mmHg 2017-10-16 Blood pressure diastolic 64 mmHg 2017-10-16 MEDICATIONS Unknown Medications RESULTS No Results PROCEDURES Procedure Date Ordered Result Body Site Hemoglobin Test Send Out 0 dollar Oct 16, 2017 LAB NOT BILLED BY [facility] Oct 16, 2017 VENIPUNCT, ROUTINE* Oct 16, 2017 INSTRUCTIONS MEDICATIONS ADMINISTERED No Known Medications [...]
--- OUTSIDE RECORDS SUMMARY | 2018-05-26 18:53 | XMS REPORT ---
Author Author ALISIA Santos Organization [facility] Address [address] [place] [address] Care Team Providers Care Drill Presser Name Role Phone ALISIA Santos Unavailable PROBLEMS Type Condition ICD9-CM Code ZEW70-IS Code Onset Dates Condition Status SNOMED Code Problem Adjustment disorder with depressed mood F43.21 Active 090137209 Problem Seasonal allergies J30.2 Active 809122569 Problem Mood disorder F39 Active 21086075 Problem Normal in first trimester Z34.91 Active 96050964 Problem Bipolar 1 disorder, manic, mild F31.11 Active 57783081 Problem Adjustment disorder with anxiety F43.22 Active 27154521 Problem Normal in second trimester Z34.92 Active 84413955 ALLERGIES No Information ENCOUNTERS Encounter Location Date Diagnosis [facility] [address] [address] 14 Mar, 2018 [facility] [address] [address] February, Seasonal allergies J30.2 [facility] [id number] [place] [address]576- [address] February, [facility] [id number] [place] [address] Dec, Seasonal allergic rhinitis, unspecified trigger J30.2 and Sore throat J02.9 [facility] [address] [address] Oct, Mood disorder F39 [facility] [id number] [place] [address] 10391- 4238 Oct, Mood disorder F39 [facility] [address] [address] Sep, Adjustment disorder with depressed mood F43.21 ; Screening cholesterol level Z13.220 and Screening for diabetes mellitus Z13.1 [place] [address] [address] Sep, Adjustment disorder with anxiety F43.22 and Adjustment disorder with depressed mood F43.21 [facility] [address] [address] Aug, Pharyngitis due to other organism J02.8 [facility] [address] [address] Aug, Sore throat J02.9 and Acute nasopharyngitis (common cold) J00 [facility] [id number] [place] [address]46 Mar, Acute nasopharyngitis J00 [place] [address] [address]- 3647 Mar, Adjustment disorder with anxiety F43.22 ; Adjustment disorder with depressed mood F43.21 and Bipolar 1 disorder, manic, mild F31.11 [place] [address] [address]- 3670 Mar, [place] [address] [address] Nov, 39 weeks gestation of Z3A.39 [place] [address] [address]- [address]44 Nov, care in third trimester Z34.93 [place] [address] 8[address]65- 6911 Oct, Normal in third trimester Z34.93 [place] [id number] [place] [address]30- 8791 Oct, [place] [address] [address]- 2353 Oct, Third trimester at less than 36 weeks Z33.1 [facility] [address] [address] Oct, [facility] [id number] [id number] Oct, [facility] [address], [place] [address] Oct, Normal in third trimester Z34.93 [facility] [address] [place] [address] 13740- 6191 Sep, Normal in third trimester Z34.93 [place] [address] [place] [address] 10375- 9500 Sep, Third trimester at less than 36 weeks Z33.1 and Encounter for immunization Z23 [place] [id number] [place] [address] 15741- 1838 Aug, Adjustment disorder with anxiety F43.22 and Adjustment disorder with depressed mood F43.21 [place] [address] [place] [address] 53257- 2641 Aug, Abnormal glucose tolerance test in O99.810 [facility] [address] [address] Aug, [facility] [id number] [place] [address] 86166- 7158 Aug, Normal in second trimester Z34.92 [facility] [id number] [place] [address] Aug, Acute upper respiratory infection, unspecified J06.9 and Other viral agents as the cause of diseases classified elsewhere B97.89 [facility] [address] [place] [address] 01838- 8171 Jul, Adjustment disorder with depressed mood F43.21 and Bipolar 1 disorder, manic, mild F31.11 [facility] [address] [place] [address] 56851- 0340 18 Jul, 2016 Bipolar 1 disorder, manic, mild F31.11 ; Adjustment disorder with anxiety F43.22 and Adjustment disorder with depressed mood F43.21 [facility] [address] [place] [address] 08192- 9835 12 Jul, 2016 Normal in second trimester Z34.92 [facility] [id number] [place] [address]21 -[address]1 Jul, Contact dermatitis, unspecified contact dermatitis type, unspecified trigger L25.9 [place] [id number] [place] [address] 43149- 4449 Jul, Adjustment disorder with depressed mood F43.21 ; Adjustment disorder with anxiety F43.22 and Bipolar 1 disorder, manic, mild F31.11 [place] [id number] [place] [address] 63351- 7767 Jul, Adjustment disorder with depressed mood F43.21 and Bipolar 1 disorder, manic, mild F31.11 [place] [id number] [place] [address] 33495- 2607 Jun, Adjustment disorder with depressed mood F43.21 and Bipolar 1 disorder, manic, mild F31.11 [place] [id number] [place] [address] 53225- 5120 Jun, Adjustment disorder with depressed mood F43.21 ; Bipolar 1 disorder, manic, mild F31.11 and Anxiety, generalized F41.1 [place] [id number] [place] [address] 05928- 5920 19 Jun, 2016 Normal in second trimester Z34.92 ; 18 weeks gestation of Z3A.18 and Encounter for immunization Z23 [facility] [id number] [place] [address] 27028- 0220 07 Jun, 2016 Normal in first trimester Z34.91 [place] [address] [address]- 4476 May, care in second trimester Z34.92 [place] [address], [place] [address] May, [place] [id number] [place] [address] 76793- 5745 May, [place] [id number] [place] [address] 37994- 5913 May, Major depressive disorder, recurrent, moderate F33.1 [place] [address] [place] [address] 96879- 9653 10 May, 2016 Normal in first trimester Z34.91 ; Pap smear for cervical cancer screening Z12.4 ; Screen for STD (sexually transmitted disease) Z11.3 and 12 weeks gestation of Z3A.12 [place] [id number] [place] [address] 61946- 6970 08 May, 2016 12 weeks gestation of Z3A.12 ; Unspecified abdominal pain R10.9 and Other specified related conditions, unspecified trimester O26.899 [place] [id number] [place] [address] 86029- 6746 Apr, [place] [id number] [place] [address] 78235- 0933 Apr, [place] [address] [place] [address] 54270- 0658 February, [place] [id number] [place] [address] 67394- 8375 February, Bipolar 1 disorder, manic, mild F31.11 and Adjustment disorder with depressed mood F43.21 [place] [id number] [place] [address] 82926- 3772 Dec, Major depressive disorder, single episode, moderate F32.1 ; Adjustment disorder with depressed mood F43.21 and Bipolar 1 disorder, manic, mild F31.11 [place] [address] [place] [address] 82176- 8937 Dec, Adjustment disorder with depressed mood F43.21 ; Major depressive disorder, single episode, moderate F32.1 and Bipolar 1 disorder, manic, mild F31.11 [place] [address] [place] [address] 56788- 9705 Dec, Right hand pain M79.641 [place] [id number] [place] [address] 12925- 6265 Dec, Major depressive disorder, single episode, moderate F32.1 and Adjustment disorder with depressed mood F43.21 [place] [id number] [place] [address] 31175- 7422 Nov, Major depressive disorder, single episode, moderate F32.1 [place] [id number] [place] [address] 31501- 5304 Nov, Adjustment disorder with depressed mood F43.21 ; Bipolar 1 disorder, manic, mild F31.11 and Adjustment disorder with anxiety F43.22 [place] [id number] [place] [address] 27338- 1698 Oct, [address] [address]- 9948 Oct, Encounter for counseling regarding contraception Z30.9 ; Initiation of OCP (BCP) Z30.011 ; Routine screening for STI (sexually transmitted infection) Z11.3 and Dysmenorrhea N94.6 [place] [id number] [place] [address] 37900- 5148 Sep, Acute upper respiratory infection, unspecified J06.9 ; Other viral agents as the cause of diseases classified elsewhere B97.89 and Post -nasal drip R09.82 [place] [id number] [place] [address] 48599- 0088 Aug, Depressive disorder, not elsewhere classified [address] [place] [id number] [place] [address] 44516- 0236 Jul, Depression, major, recurrent, moderate F33.1 [facility] [address] [address]- 2496 Jun, Major depressive disorder, recurrent episode, moderate 296.32 [facility] [address] 7943 Mar, Major depression, recurrent 296.30 [facility] [address] [place] [address] 20774- 3645 Jan, [facility] [address], [place] [address]- 4202 Jan, [facility] [id number] [place] [address] 66035- 9071 Dec, [facility] [id number] [address]- 9395 Dec, [facility] [id number] [place] [address] 46210- 0161 Nov, [facility] [address], [place] [address]- 3534 Nov, [facility] [address], [place] [address]- 6937 Oct, [facility] [address] [place] [address]- 3031 Oct, [facility] [address], [place] [address]- 3641 Sep, [facility] [address], [place] [address]- 3842 Sep, [facility] [address] [address] [address] Sep, [facility] [address] [address] Sep, [facility] [address], [place] [address]- 1484 Sep, [facility] [place] [facility] [address] [id number] [place] [address]- 7637 Sep, [facility] [place] [facility] [address] [id number] [place] [address]- 7325 Aug, [facility] [place] [facility] [address] [id number] [place] [address]- 1452 Aug, [facility] [place] [facility] [address] [id number] [place] [address]- 1446 Aug, [facility] [place] [facility] [address] [id number] [place] [address]- 1072 Aug, [facility] [place] [facility] [address] [id number] [place] [address]- 6955 Jul, [facility] [place] [facility] [address] [id number] [place] [address]- 7515 Jul, [facility] [place] [facility] [address] [id number] [place] [address]- 4457 Jul, [facility] [place] [facility] [address] [id number] [place] [address]- 4348 Jul, [facility] [place] [facility] [address] [id number] [place]- 4298 Jun, [facility] [place] [facility] [address] [id number] [place] [address]- 7282 Jun, [facility] [place] [facility] [address] [id number] [place] [address]- 5233 Jun, [facility] [place] [facility] [address] [id number] [place] [address]- 2569 Jun, [facility] [place] [facility] [address] [id number] [place] [address]- 2546 Apr, [facility] [place] [facility] [address] [id number] [place] [address]- 2546 Apr, [facility] [place] [facility] [address] [id number] [place] [address]- 7561 Mar, [facility] [address] [id number] [place] [address]- 0102 Mar, [facility] [place] [facility] [address] [id number] [place] [address]- 1308 Mar, [facility] [address] [id number] [place] [address]- 4452 Mar, [facility] [place] [facility] [address] [id number] [place] [address]- 7565 February, [facility] [address] [id number] [place] [address]- 7355 February, [facility] [address] [id number] [place] [address]- 9409 February, [facility] [address] [id number] [place] [address]- 7643 February, [facility] [address] [id number] [place] [address]- 1751 February, [facility] [place] [facility] [address] [id number] [place] [address]- 3189 February, [facility] [address] [id number] [place] [address]- 3611 February, [facility] [place] [facility] [address] [id number] [place] [address]- 5971 Jan, [facility] [place] [facility] [address] [id number] [place] [address]- 8453 Jan, [facility] [place] [facility] [address] [id number] [place] [address]- 7611 Jan, [facility] [place] [facility] [address] [id number] [place] [address]- 8867 Jan, [facility] [place] [facility] [address] [id number] [place] [address]- 2946 Jan, [facility] [place] [facility] [address] [id number] [place] [address]- 5899 14 Jan, 2014 [facility] [place] [facility] [address] [id number] [place] [address]- 7854 11 Jan, 2014 [facility] [place] [facility] [address] [id number] [place] [address]- 4105 Jan, [facility] [place] [facility] [address] [id number] [place] [address]- 2930 14 Oct, 2013 [facility] [address] [id number] [place] [address]- 5562 14 Oct, 2013 [facility] [place] [facility] [address] [id number] [place] [address]- 1973 Sep, [facility] [place] [facility] [address] [id number] [place] [address]- 4080 Sep, [facility] [place] [facility] [address] [id number] [place] [address]- 5202 11 Jun, 2013 [facility] [place] [facility] [address] [id number] [place] [address]- 9596 04 Jun, 2013 [facility] [place] [facility] [address] [id number] [place] [address]- 1365 Oct, [facility] [place] [facility] [address] [id number] [place] [address]- 1407 Sep, [facility] [place] [facility] [address] [id number], [place] [address]- 5140 08 Sep, 2012 [facility] [place] [facility] [address] [id number] [place] [address]- 5215 26 Jun, 2012 [facility] [place] [facility] [address] [id number] [place] [address]- 4224 25 Jun, 2012 [facility] [place] [facility] [address] [id number] [place]- 5943 24 Jun, 2012 [facility] [place] [facility] [address] [id number], [place] [address]- 0607 20 Jun, 2012 [facility] [place] [facility] [address] [id number] [place] [address]- 5595 20 Jun, 2012 [facility] [place] [facility] [address] [id number] [place] [address]- 0442 05 Jun, 2012 [facility] [place] [facility] [address] [id number] [place] [address]- 6736 Apr, [facility] [place] [facility] [address] [id number] [place] [address]- 6770 Mar, [facility] [place] [facility] [address] [id number] [place] [address]- 5975 Mar, [facility] [place] [facility] [address] [id number] [place] [address]- 0660 Dec, [facility] [place] [facility] [address] [id number] [place] [address]- 4920 Oct, [facility] [place] [facility] [address] [id number] [place] [address]- 6103 15 Aug, 2011 [facility] [place] [facility] [address] [id number] [place] [address]- 2101 Aug, [facility] [place] [facility] [address] [id number] [place] [address]- 0540 Aug, [facility] [place] [facility] [address] [id number], [place] [address]- 0992 Aug, [facility] [place] [facility] [address] [id number], [place] [address]- 1960 Aug, [facility] [place] [facility] [address] [id number] [place] [address]- 5058 24 Jul, 2011 [facility] [place] [facility] [address] [id number] [place] [address]- 7141 19 Jul, 2011 [facility] [place] [facility] [address] [id number] [place] [address]- 2705 15 Jun, 2011 [facility] [place] [facility] [address] [facility] [id number] [place] [address]- 0962 Jul, [facility] [address] [facility] [id number], [place] [address]- 6822 Aug, [facility] [address] [facility] [id number], [place] [address]- 7342 Aug, [facility] [address] [facility] [id number], [place] [address]- 9141 Oct, IMMUNIZATIONS No Known Immunizations SOCIAL HISTORY Never Assessed REASON FOR VISIT f/u PLAN OF CARE Activity Details Follow Up 3 Weeks Reason:Anxiety VITAL SIGNS MEDICATIONS Medication Instructions Dosage Frequency Start Date End Date Duration Status Flonase 50 MCG/ACT Nasally Once a day 1 spray in each nostril 24h Mar, 30 day(s) Unknown NyQuil Unknown Delsym 30 MG/5ML Orally every 12 hrs 10 ml as needed 12h Unknown Zoloft 50 MG Orally Once a day 1 tablet 24h 15 May, 2016 30 days Unknown Plus/Iron 27-1 MG Orally Once a day 1 tablet 24h 24 May, 2016 30 days Unknown Omeprazole 10 mg Orally Once a day 2 capsules 24h Sep, 30 day(s ) Unknown PredniSONE 10 mg Orally 2 times a day 1 tablet 12h Unknown RESULTS No Results PROCEDURES Procedure Date Ordered Result Body Site Psychotherapy, patient &/family, 30 minutes, established patient Oct 14, 2017 INSTRUCTIONS MEDICATIONS ADMINISTERED No Known Medications [...]
[2018-05-26] MEDS ORDERED: SULF1TAB35 PO (18:57)
[2018-05-26] MEDS ORDERED: PHEN-639 PO (18:57)
[2018-05-26] MEDS ORDERED: hydrOXYzine (VISTARIL) 25 MG CAP PO ONE (19:00)
--- OUTSIDE RECORDS SUMMARY | 2018-05-26 19:01 | XMS REPORT | Continuity of Care Document ---
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 Bacterial throat culture NBS NRG CBC With Differential/Platelet - 08/28/16 15:07 WBC 12.9 x10E3/uL 3.4-10.8 RBC 4.16 x10E6/uL 3.77-5.28 Hemoglobin 11.9 g/dL 11.1-15.9 Hematocrit 36.3 % 34.0-46.6 MCV 87 fL 79-97 MCH 28.6 pg 26.6-33.0 MCHC 32.8 g/dL 31.5-35.7 RDW 14.0 % 12.3-15.4 Platelets 309 x10E3/uL 150-379 Neutrophils 86 % Lymphs 11 % Monocytes 3 % Eos 0 % Basos 0 % Neutrophils (Absolute) 11.1 x10E3/uL 1.4-7.0 Lymphs (Absolute) 1.4 x10E3/uL 0.7-3.1 Monocytes(Absolute) 0.4 x10E3/uL 0.1-0.9 Eos (Absolute) 0.0 x10E3/uL 0.0-0.4 Baso (Absolute) 0.0 x10E3/uL 0.0-0.2 Immature Granulocytes 0 % Immature Grans (Abs) 0.0 x10E3/uL 0.0-0.1 Gest. Diabetes 1-Hr Screen - 08/28/16 15:07 Gestational Diabetes Screen 171 mg/dL 65-139 Capillary blood glucose measurement by glucometer (mass/volume) [...] culture - 11/04/16 02:10 Bacterial urine culture [id number] NRG COLONY COUNT >100,000/ML NRG Complete urinalysis [...] culture - 11/05/16 21:30 Bacterial urine culture [id number] NRG COLONY COUNT <10,000 NRG URINE CULTURE RESULTS PLUS NRG Strep Gp B Culture - 11/13/16 14:58 Strep Gp B Culture Positive Negative Complete blood count (CBC) with automated white [...] ABO+Rh group AP NRG Transfusion band number [id number] NRG Blood group antibody screen NEGATIVE NRG [...] culture - 04/03/17 18:29 Bacterial urine culture [id number] NRG COLONY COUNT >100,000/ML NRG FTX;REPORTABLE SEE [...] culture - 09/26/17 17:35 Bacterial urine culture [id number] NRG COLONY COUNT >100,000/ML NRG FTX;REPORTABLE COAGULASE NEGATIVE STAPHYLOCOCCUS NRG FREE TEXT ENTRY 2 SEE COMMENT NRG THYROID ANALYZER - 10/16/17 16:57 TSH 0.98 mIU/L NRG A1C - 10/16/17 16:57 HEMOGLOBIN A1c 4.9 % of total Hgb <5.7 Complete urinalysis with reflex to culture - [...] culture - 12/07/17 19:10 Bacterial urine culture [id number] NRG COLONY COUNT >100,000/ML NRG FTX;REPORTABLE SENSITIVITY [...] test by minimum inhibitory concentration - NRG Complete urinalysis with reflex to culture - 12/20/17 17:58 Urine color determination YELLOW NRG Urine clarity [...] urine sediment by light microscopy NEGATIVE NRG Squamous epithelial cells detection in urine sediment by light microscopy 5-10 NRG Crystals detection in urine sediment by light microscopy NONE NRG Casts detection in urine sediment by light microscopy NONE NRG Mucus detection in urine sediment by light microscopy NEGATIVE NRG Complete urinalysis with reflex to culture YES NRG Bacterial urine culture - 12/20/17 17:58 Bacterial urine culture [id number] NRG COLONY COUNT <10,000 NRG FTX;REPORTABLE PROBABLE E COLI NRG Streptococcus pyogenes antigen detection - 01/05/18 16:48 Streptococcus pyogenes antigen detection NEGATIVE NEGATIVE Influenza virus A and B antigen detection - 01/05/18 16:48 FLU RESULT NEGATIVE FOR INFLUENZA A AND B ANTIGENS BY IA NRG Bacterial throat culture - 01/05/18 16:48 Bacterial throat culture NBS NRG Complete urinalysis with reflex to culture - 03/14/18 19:10 Urine color determination YELLOW NRG Urine clarity determination SLIGHTLY CLOUDY NRG Urine pH measurement by test strip 6 5-9 Specific gravity of urine by test strip 1.025 1.016- 1.022 Urine protein assay by test strip, semi-quantitative 2+ NEGATIVE Urine glucose detection by automated test [...] count by microscopy (number/high power field ) TNTC NRG Bacteria detection in urine sediment by light microscopy MODERATE NRG Squamous epithelial cells detection in urine sediment by light microscopy 10-25 NRG Crystals detection in urine sediment by light microscopy NONE NRG Casts detection in urine sediment by light microscopy NONE NRG Mucus detection in urine sediment by light microscopy MODERATE NRG Complete urinalysis with reflex to culture YES NRG Bacterial urine culture - 03/14/18 19:10 Complete blood count (CBC) with automated white blood cell (WBC) differential - 04/19/18 17:50 Blood leukocytes automated count (number/volume) 6.6 10*3/uL 4.3-11.0 Blood erythrocytes automated count (number/volume) 4.47 10*6/uL 4.35-5.85 Venous blood hemoglobin measurement (mass/volume) 12.3 g/dL 11.5-16.0 Blood hematocrit (volume fraction) 37 % 35-52 Automated erythrocyte mean corpuscular volume 82 [foz_us] 80-99 Automated erythrocyte mean corpuscular hemoglobin (mass per erythrocyte) 28 pg 25-34 Automated erythrocyte mean corpuscular hemoglobin concentration measurement ( mass/volume) 34 g/dL 32-36 Automated erythrocyte distribution width ratio 14.1 % 10.0-14.5 Automated blood platelet count (count/volume) 249 10*3/uL 130-400 Automated blood platelet mean volume measurement 10.9 [foz_us] 7.4-10.4 Automated blood neutrophils/100 leukocytes 54 % 42-75 Automated blood lymphocytes/100 leukocytes 32 % 12-44 Blood monocytes/100 leukocytes 12 % 0-12 Automated blood eosinophils/100 leukocytes 2 % 0-10 Automated blood basophils/100 leukocytes 0 % 0-10 Blood neutrophils automated count (number/volume) 3.5 10*3 1.8-7.8 Blood lymphocytes automated count (number/volume) 2.1 10*3 1.0-4.0 Blood monocytes automated count (number/volume) 0.8 10*3 0.0-1.0 Automated eosinophil count 0.2 10*3/uL 0.0-0.3 Automated blood basophil count (count/volume) 0.0 10*3/uL 0.0-0.1 Complete urinalysis with reflex to culture - 04/19/18 17:50 Urine color determination YELLOW NRG Urine clarity [...] urine sediment by light microscopy LARGE NRG Complete urinalysis with reflex to culture YES NR Comprehensive metabolic panel - 04/19/18 17:50 Serum or plasma sodium measurement (moles/volume) 140 mmol/L 135-145 Serum or plasma potassium measurement (moles/volume) 3.7 mmol/L 3.6-5.0 Serum or plasma chloride measurement (moles/volume) 108 mmol/L 98-107 Carbon dioxide 22 mmol/L 21-32 Serum or plasma anion gap determination (moles/volume) 10 mmol/L 5-14 Serum or plasma urea nitrogen measurement (mass/volume) 12 mg/dL 7-18 Serum or plasma creatinine measurement (mass/volume) 0.72 mg/dL 0.60-1.30 Serum or plasma urea nitrogen/creatinine mass ratio 17 NRG Serum or plasma creatinine measurement with calculation of estimated glomerular filtration rate > NRG Serum or plasma glucose measurement (mass/volume) 85 mg/dL 70-105 Serum or plasma calcium measurement (mass/volume) 9.1 mg/dL 8.5-10.1 Serum or plasma total bilirubin measurement (mass/volume) 0.3 mg/dL 0.1-1.0 Serum or plasma alkaline phosphatase measurement (enzymatic activity/volume) 40 U/L 40-136 Serum or plasma aspartate aminotransferase measurement (enzymatic activity/ volume) 12 U/L 5-34 Serum or plasma alanine aminotransferase measurement (enzymatic activity/volume ) 12 U/L 0-55 Serum or plasma protein measurement (mass/volume) 6.8 g/dL 6.4-8.2 Serum or plasma albumin measurement (mass/volume) 4.4 g/dL 3.2-4.5 THYROID STIMULATING HORMONE - 04/19/18 17:50 THYROID STIMULATING HORMONE 0.54 u[iU]/mL 0.35-4.94 Serum or plasma thyroxine (T4) free measurement (mass/volume) - 04/19/18 17:50 Serum or plasma thyroxine (T4) free measurement (mass/volume) 1.08 ng/dL 0.70-1.48 Bacterial urine culture - 04/19/18 17:50 Bacterial urine culture SEE COMMEN NRG COLONY COUNT >100,000/ML NRG Complete blood count (CBC) with automated white blood cell (WBC) differential - 04/26/18 13:40 Blood leukocytes automated count (number/volume) 7.1 10*3/uL 4.3-11.0 Blood erythrocytes automated count (number/volume) 4.65 10*6/uL 4.35-5.85 Venous blood hemoglobin measurement (mass/volume) 12.9 g/dL 11.5-16.0 Blood hematocrit (volume fraction) 38 % 35-52 Automated erythrocyte mean corpuscular volume 82 [foz_us] 80-99 Automated erythrocyte mean corpuscular hemoglobin (mass per erythrocyte) 28 pg 25-34 Automated erythrocyte mean corpuscular hemoglobin concentration measurement ( mass/volume) 34 g/dL 32-36 Automated erythrocyte distribution width ratio 13.8 % 10.0-14.5 Automated blood platelet count (count/volume) 236 10*3/uL 130-400 Automated blood platelet mean volume measurement 11.3 [foz_us] 7.4-10.4 Automated blood neutrophils/100 leukocytes 59 % 42-75 Automated blood lymphocytes/100 leukocytes 28 % 12-44 Blood monocytes/100 leukocytes 9 % 0-12 Automated blood eosinophils/100 leukocytes 3 % 0-10 Automated blood basophils/100 leukocytes 0 % 0-10 Blood neutrophils automated count (number/volume) 4.2 10*3 1.8-7.8 Blood lymphocytes automated count (number/volume) 2.0 10*3 1.0-4.0 Blood monocytes automated count (number/volume) 0.7 10*3 0.0-1.0 Automated eosinophil count 0.2 10*3/uL 0.0-0.3 Automated blood basophil count (count/volume) 0.0 10*3/uL 0.0-0.1 Comprehensive metabolic panel - 04/26/18 13:40 Serum or plasma sodium measurement (moles/volume) 141 mmol/L 135-145 Serum or plasma potassium measurement (moles/volume) 3.8 mmol/L 3.6-5.0 Serum or plasma chloride measurement (moles/volume) 109 mmol/L 98-107 Carbon dioxide 24 mmol/L 21-32 Serum or plasma anion gap determination (moles/volume) 8 mmol/L 5-14 Serum or plasma urea nitrogen measurement (mass/volume) 16 mg/dL 7-18 Serum or plasma creatinine measurement (mass/volume) 0.82 mg/dL 0.60-1.30 Serum or plasma urea nitrogen/creatinine mass ratio 20 NRG Serum or plasma creatinine measurement with calculation of estimated glomerular filtration rate > NRG Serum or plasma glucose measurement (mass/volume) 69 mg/dL 70-105 Serum or plasma calcium measurement (mass/volume) 9.3 mg/dL 8.5-10.1 Serum or plasma total bilirubin measurement (mass/volume) 0.6 mg/dL 0.1-1.0 Serum or plasma alkaline phosphatase measurement (enzymatic activity/volume) 40 U/L 40-136 Serum or plasma aspartate aminotransferase measurement (enzymatic activity/ volume) 13 U/L 5-34 Serum or plasma alanine aminotransferase measurement (enzymatic activity/volume ) 12 U/L 0-55 Serum or plasma protein measurement (mass/volume) 6.9 g/dL 6.4-8.2 Serum or plasma albumin measurement (mass/volume) 4.3 g/dL 3.2-4.5 Serum or plasma C reactive protein measurement (mass/volume) - 04/26/18 13:40 Serum or plasma C reactive protein measurement (mass/volume) 0.07 mg /dL 0.00-0.50 Serum or plasma ethanol measurement (mass/volume) - 04/26/18 13:40 Serum or plasma ethanol measurement (mass/volume) < mg/dL <10 Complete urinalysis with reflex to culture - 04/26/18 13:54 Urine color determination YELLOW NRG Urine clarity [...] urine sediment by light microscopy NEGATIVE NRG Squamous epithelial cells detection in urine sediment by light microscopy 5-10 NRG Crystals detection in urine sediment by light microscopy NONE NRG Casts detection in urine sediment by light microscopy NONE NRG Mucus detection in urine sediment by light microscopy NEGATIVE NRG Complete urinalysis with reflex to culture NO NRG Urine drug screening test - 04/26/18 13:54 Urine phencyclidine detection by screening method NEGATIVE [...] methadone detection by screening method NEGATIVE NEGATIVE Urine oxycodone detection NEGATIVE NEGATIVE Urine propoxyphene detection NEGATIVE NEGATIVE Encounters ACCT No. Visit Date/Time Discharge Status Pt. Type Provider Facility Loc./Unit Complaint [id number] 02/14/2015 09:23:00 02/14/2015 23:59:59 CLS Outpatient TJ CHAUDHRY APRN [id number] 11/29/2014 11:59:00 11/29/2014 23:59:59 CLS Outpatient TJ CHAUDHRY APRN [id number] 11/29/2014 11:59:00 11/29/2014 23:59:59 CLS Outpatient TJ CHAUDHRY APRN [id number] 10/19/2014 15:08:00 10/19/2014 23:59:59 CLS Outpatient ALISIA SIDHU [id number] 10/14/2014 08:59:00 10/14/2014 23:59:59 CLS Outpatient ALISIA SIDHU [id number] 09/19/2014 14:14:00 09/19/2014 23:59:59 MARYCARMEN Outpatient ALISIA SIDHU [id number] 08/29/2014 14:04:00 08/29/2014 23:59:59 CLS Outpatient ALISIA SIDHU [id number] 08/22/2014 14:46:00 08/22/2014 23:59:59 MARYCARMEN Outpatient ALISIA SIDHU [id number] 07/06/2014 09:43:00 07/06/2014 23:59:59 CLS Outpatient GERALD BRAGG APRN [id number] 05/05/2014 10:05:00 05/05/2014 23:59:59 CLS Outpatient TJ CHAUDHRY APRN [id number] 03/24/2014 08:43:00 03/24/2014 23:59:59 CLS Outpatient NATE MEI PHD [id number] 02/22/2014 15:57:00 02/22/2014 23:59:59 CLS Outpatient NATE MEI PHD [id number] 01/28/2014 08:17:00 01/28/2014 23:59:59 CLS Outpatient NATE MEI PHD [id number] 10/19/2013 16:02:00 10/19/2013 23:59:59 CLS Outpatient SHEBA KACEY CAMPOS [id number] 07/09/2012 08:24:00 07/09/2012 23:59:59 CLS Outpatient NATE MEI PHD [id number] 06/23/2013 07:46:00 Document Registration [id number] 11/15/2012 15:36:46 RECURRING [id number] 04/24/2018 16:40:00 04/24/2018 23:59:59 [facility] Outpatient IVY [facility] [id number] 10/16/2017 16:00:00 Document Registration [id number] 06/16/2015 03:18:52 ACT Document Registration [id number] 08/29/2016 13:06:00 Document Registration [id number] 11/16/2016 18:06:00 Document Registration [id number] 05/17/2018 13:45:00 05/17/2018 14:41:00 DIS Emergency EMILEE QUIROZ MD [facility] ER PAINFUL URINATION [id number] 04/26/2018 13:18:00 04/26/2018 14:47:00 DIS Emergency JAMEY ROMAN [facility] ER DIZZINESS [id number] 04/19/2018 16:30:00 04/19/2018 19:05:00 DIS Emergency GLO BLOOM APRN [facility] ER PROBLEMS WITH BLOOD SUGAR, DIZZY SPELLS,NAUSEA [id number] 03/14/2018 19:06:00 03/14/2018 19:32:00 DIS Emergency GLO BLOOM APRN [facility] ER PAIN WHEN URINATING [id number] 01/05/2018 15:23:00 01/05/2018 17:42:00 DIS Emergency EMILEE QUIROZ MD [facility] ER FEVER [id number] 12/20/2017 17:00:00 12/20/2017 18:42:00 DIS Emergency ANGELICA LINCOLN, CAROLYN S [facility] ER ABD PAIN,VOMITING [id number] 12/07/2017 17:43:00 12/07/2017 19:53:00 DIS Emergency KOFI LINCOLN, BRENDA Arevalo [facility] ER UTI [id number] 10/30/2017 00:38:00 10/30/2017 02:23:00 DIS Emergency RICHIE LINCOLN, EMILEE Cortes [facility] ER FEVER,NAUSEA [id number] 10/23/2017 17:40:00 10/23/2017 17:55:00 DIS Emergency GLO BLOOM ADA ACCOMMODATION CONSULTANT [facility] ER DENTAL PAIN [id number] 09/26/2017 17:31:00 09/26/2017 19:07:00 DIS Emergency JAMEY ROMAN [facility] ER PELVIC PAIN [id number] 09/14/2017 15:07:00 09/14/2017 15:34:00 DIS Emergency GLO BLOOM ADA ACCOMMODATION CONSULTANT [facility] ER ANXIETY/CP [id number] 07/14/2017 18:15:00 07/14/2017 18:59:00 DIS Emergency BRENDA KIRBY MD [facility] ER LOWER BACK PAIN [id number] 06/17/2017 01:04:00 06/17/2017 01:29:00 DIS Emergency BRENDA KIRBY MD [facility] ER CHEST PAIN SOA [id number] 05/14/2017 21:27:00 05/14/2017 22:28:00 DIS Emergency GLO BLOOM ADA ACCOMMODATION CONSULTANT [facility] ER CHILLS;THROAT PAIN [id number] 05/01/2017 14:07:00 05/01/2017 15:00:00 DIS Emergency GLO BLOOM ADA ACCOMMODATION CONSULTANT [facility] ER POSS UTI/STD [id number] 04/03/2017 16:56:00 04/03/2017 20:10:00 DIS Emergency TACOS KAUR DO [facility] ER ABD PAIN [id number] 11/28/2016 05:55:00 11/29/2016 18:00:00 DIS Inpatient TATIANA WEI MD [facility] LDRP INDUCTION [id number] 11/05/2016 21:23:00 11/05/2016 23:23:00 DIS Outpatient TATIANA WEI MD [facility] WSo CONTRACTIONS [id number] 11/04/2016 01:52:00 11/04/2016 04:44:00 DIS Outpatient KOLE LAMB MD [facility] WSo CONTRACTIONS W BLOOD [id number] 10/21/2016 02:16:00 10/21/2016 03:38:00 DIS Emergency TACOS KAUR DO [facility] ER COUGHING NAUSEA HARD BREATHING [id number] 09/09/2016 13:22:00 09/09/2016 23:59:59 CLS Outpatient TATIANA WEI MD [facility] LAB ABNORMAL GLUCOSE TOLERANCE TEST IN [id number] 09/07/2016 14:21:00 09/07/2016 15:10:00 DIS Outpatient KOLE LAMB MD [facility] WSo DECREASED MOVEMENT [id number] 09/03/2016 00:25:00 09/03/2016 00:38:00 DIS Emergency OSVALDO VALENTIN MD [facility] ER POSS BUG BITE ON RT ARM [id number] 09/02/2016 14:08:00 09/02/2016 23:59:59 CLS Outpatient TATIANA WEI MD [facility] RAD NORMAL PREG IN SECOND TRIMESTER [id number] 08/27/2016 23:27:00 08/28/2016 00:40:00 DIS Emergency OSVALDO VALENTIN MD [facility] ER COUGH [id number] 07/27/2016 16:59:00 07/27/2016 17:55:00 DIS Outpatient KACEY SCRUGGS DO [facility] WSo CONTRACTIONS [id number] 07/10/2016 10:29:00 07/10/2016 23:59:59 CLS Outpatient SHEBA CAMPOS KACEY Joseph [facility] RAD NORMAL [id number] 07/09/2016 10:08:00 07/09/2016 12:30:00 DIS Emergency EMILEE QUIROZ MD [facility] ER POSS CONTRACTIONS 18 WEEKS PREG [id number] 07/08/2016 00:10:00 07/08/2016 03:17:00 DIS Emergency EMILEE QUIROZ MD [facility] ER HEADACHE, 17 WKS PREG [id number] 07/01/2016 20:38:00 07/01/2016 23:50:00 DIS Emergency JAMEY ROMAN [facility] ER VOMITING/DIZZY/ HEADACHE [id number] 06/27/2016 20:05:00 06/27/2016 21:07:00 DIS Emergency GLO BLOOM APRN [facility] ER FALL [id number] 06/13/2016 00:28:00 06/13/2016 01:21:00 DIS Emergency JONG CAMPOS HERNANDO Jake [facility] ER ALTERCATION [id number] 06/12/2016 00:37:00 06/12/2016 01:45:00 DIS Emergency JONG CAMPOSALANA Jake [facility] ER HURTS TO URINATE [id number] 06/06/2016 21:08:00 06/06/2016 23:03:00 DIS Emergency GLO BLOOM APRN [facility] ER NAUSEA;DIZZINESS [id number] 05/30/2016 17:16:00 05/30/2016 23:59:59 CLS Outpatient KACEY SCRUGGS DO Jake [facility] RAD CRAMPING [id number] 05/12/2016 18:43:00 05/12/2016 20:21:00 DIS Emergency JAMEY ROMAN [facility] ER ABD PAIN [id number] 04/26/2016 15:25:00 04/26/2016 18:28:00 DIS Emergency JAMEY ROMAN [facility] ER LATE PERIOD/KNOT IN ABD AREA [id number] 02/26/2016 21:34:00 02/26/2016 22:47:00 DIS Emergency OSVALDO VALENTIN MD [facility] ER [id number] 01/28/2016 13:32:00 01/28/2016 16:19:00 DIS Emergency SWAPNIL RODRIGUEZ JAMEY L [facility] ER [id number] 06/15/2015 17:54:00 06/15/2015 18:45:00 DIS Emergency GLO BLOOM APRN [facility] ER [id number] 10/31/2014 16:15:00 10/31/2014 17:20:00 DIS Emergency GLO BLOOM APRN [facility] ER [id number] 10/08/2014 21:47:00 10/08/2014 22:15:00 DIS Emergency JUVENAL ROGER MD [facility] ER [id number] 04/16/2014 21:59:00 04/16/2014 22:40:00 DIS Emergency GOL BLOOM APRN [facility] ER DIZZINESS LEFT SIDE PAIN [id number] 03/21/2014 14:30:00 03/21/2014 15:36:00 DIS Emergency [id number] 02/13/2014 23:05:00 02/13/2014 23:40:00 DIS Emergency JONG HERNANDO CAMPOS [facility] ER ABD PAIN [id number] 01/24/2014 01:45:00 01/26/2014 17:45:00 DIS Inpatient TATIANA WEI MD [facility] CTXS/ LABOR [id number] 01/22/2014 23:06:00 01/23/2014 00:20:00 DIS Outpatient KACEY SCRUGGS DO [facility] CTXS [id number] 01/21/2014 16:02:00 01/21/2014 17:08:00 DIS Outpatient TATIANA WEI MD [facility] ABD PAIN [id number] 01/20/2014 23:16:00 01/21/2014 00:48:00 DIS Outpatient TATIANA WEI MD [facility] CONTRACTIONS,FLUID LEAKING [id number] 01/05/2014 16:57:00 01/05/2014 18:40:00 DIS Outpatient TATIANA WEI MD [facility] CONTRACTIONS [id number] 12/27/2013 15:52:00 12/27/2013 18:45:00 DIS Outpatient TATIANA WEI MD [facility] ABD PAIN; BACK PAIN [id number] 12/22/2013 21:16:00 12/22/2013 22:55:00 DIS Emergency GLO BLOOM APRN [facility] ER FELL OFF BED @ 34 WEEKS, HEAD PAIN [id number] 12/10/2013 23:40:00 12/11/2013 10:40:00 DIS Outpatient TATIANA WEI MD [facility] LOUD NOISES BOTHER PT, FEVER,COUGH,32 WKS PREG [id number] 12/10/2013 23:07:00 12/10/2013 23:37:00 DIS Emergency JUVENAL ROGER MD [facility] ER LOUD NOISES BOTHER PT, FEVER,COUGH [id number] 12/07/2013 06:15:00 12/07/2013 07:47:00 DIS Emergency HERNANDO SUNSHINE DO [facility] ER DIZZY,COUGHING,DIARRHEA [id number] 11/23/2013 13:22:00 11/23/2013 17:56:00 DIS Emergency JAMEY ROMAN [facility] ER LOW BLOOD SUGAR/FEVER 29 WKS PREG [id number] 10/27/2013 17:11:00 10/27/2013 20:00:00 DIS Outpatient TATIANA WEI MD [facility] C/O PREMATURE LABOR [id number] 10/23/2013 16:35:00 10/23/2013 18:15:00 DIS Outpatient TATIANA WEI MD [facility] BLEEDING [id number] 10/05/2013 20:27:00 10/05/2013 21:46:00 DIS Emergency GLO BLOOM ADA ACCOMMODATION CONSULTANT [facility] ER N/V/D [id number] 09/23/2013 14:18:00 09/23/2013 23:59:59 CLS Outpatient SANJUANA LINCOLN, TATIANA Arevalo [facility] RAD FUNDAL HEIGHT DISCREPENCY [id number] 09/03/2013 23:00:00 09/03/2013 23:30:00 DIS Emergency JONG DO HERNANDO K [facility] ER ALTERCATION,BACK PAIN [id number] 08/27/2013 18:08:00 08/27/2013 20:58:00 DIS Emergency BARBIE LINCOLN, OSVALDO Grace [facility] ER FELL AT HOME; ABD PAIN ; L KNEE PAIN [id number] 08/21/2013 14:28:00 08/21/2013 16:21:00 DIS Emergency GLO BLOOM APRN [facility] ER 15 WKS; ABD PAIN [id number] 07/21/2013 14:51:00 07/21/2013 15:58:00 DIS Emergency [id number] 06/28/2013 15:38:00 06/28/2013 23:59:59 CLS Outpatient [id number] 05/09/2013 17:13:00 05/09/2013 19:04:00 DIS Emergency [id number] 04/30/2013 18:48:00 04/30/2013 21:44:00 DIS Emergency [id number] 04/04/2013 20:11:00 04/04/2013 21:26:00 DIS Emergency [id number] 03/04/2013 13:16:00 03/04/2013 23:59:59 CLS Outpatient MAJOR, GAMALIEL PROFESSOR OF CHEMISTRY [facility] QUICK [id number] 08/21/2016 01:00:00 Document Registration [id number] 08/20/2016 23:48:00 Document Registration [id number] 11/16/2014 10:01:00 Document Registration [id number] 11/16/2014 10:01:00 Document Registration [id number] 11/16/2014 10:01:00 Document Registration [id number] 11/16/2014 10:01:00 Document Registration [id number] 11/16/2014 10:01:00 Document Registration [id number] 11/16/2014 10:01:00 Document Registration [id number] 11/16/2014 10:01:00 Document Registration [id number] 11/16/2014 10:01:00 Document Registration [id number] 11/16/2014 10:01:00 Document Registration [id number] 11/16/2014 10:01:00 Document Registration [id number] 11/16/2014 10:01:00 Document Registration [id number] 11/16/2014 10:01:00 Document Registration [id number] 11/16/2014 10:01:00 Document Registration [id number] 11/16/2014 10:01:00 Document Registration [id number] 11/16/2014 10:01:00 Document Registration [id number] 08/26/2011 09:52:00 Document Registration [id number] 05/09/2011 17:28:00 Document Registration [id number] 03/20/2011 15:01:00 Document Registration [id number] 12/06/2010 22:29:00 Document Registration [id number] 01/22/2010 14:40:00 Document Registration
[2018-05-26 19:25] VITALS: BP 106/68
== END 2018-05-26 19:25 | disposition home or self-care (01) ==
LOC: EDUNIT# 18:44 → ER 18:45
DX: F41.0 Panic disorder [episodic paroxysmal anxiety] (principal); J45.909 Unspecified asthma, uncomplicated; K21.9 Gastro-esophageal reflux disease without esophagitis; Z87.440 Personal history of urinary (tract) infections
CPT/HCPCS: 99283

== ENCOUNTER 2018-06-23 15:55 | Emergency (ER) | payer SELFPAY ==
[~2018-06-23] VITALS: Ht 160 cm; Wt 56.7 kg
--- NOTE | 2018-06-23 17:16 | ED EENT ---
History of Present Illness General Chief Complaint: Oral/Throat Problems Stated Complaint: SORE THROAT, STUFFY NOSE Nursing Triage Note: HAS BEEN EXPERIENCING PAIN, DIFFICULTY WITH SWALLOWING, STUFFY NOSE FOR THE LAST SIX DAYS Source: patient Exam Limitations: no limitations History of Present Illness Date Seen by Provider: Jun 23, 2018 Time Seen by Provider: 16:30 Initial Comments Patient is a 23-year-old female who presents to the emergency room with complaints of a sore throat and stuffy nose for the past 6 days. She reports that she's had a lot of nasal drainage. Timing/Duration: last week Prearrival Treatment: no prearrival treatment Associated Symptoms: cough, nasal congestion/drainage, sinus infection Allergies and Home Medications Allergies Coded Allergies: No Known Drug Allergies (Unverified , 06/23/18) Home Medications Hydroxyzine Pamoate 25 Mg Capsule, 25 MG PO Q6H PRN for ANXIETY Prescribed by: GLO BLOOM on 05/26/18 1851 Phenazopyridine HCl 100 Mg Tablet, 100 MG PO TID, (Reported) Sulfamethoxazole/Trimethoprim 1 Each Tablet, 1 EACH PO BID, (Reported) Patient Home Medication List Home Medication List Reviewed: Yes Review of Systems Review of Systems Constitutional: see HPI; No chills, No fever Nose: see HPI, congestion (And runny nose) Throat: see HPI All Other Systems Reviewed Negative Unless Noted: Yes Past Idfrsop-Llycqt-Jqshvk Hx Past Med/Social Hx: Reviewed Nursing Past Med/Soc Hx Patient Social History Type Used: Electronic/Vapor Former Smoker, Quit: Mar 20, 2018 2nd Hand Smoke Exposure: No Recent Foreign Travel: No Contact w/Someone Who Travel: No Recent Infectious Disease Expo: No Recent Hopitalizations: No Immunizations Up To Date Tetanus Booster (TDap): Unknown PED Vaccines UTD: No Date of Influenza Vaccine: Oct 04, 2016 Seasonal Allergies Seasonal Allergies: Yes Past Medical History Surgeries: No Respiratory: No Asthma Currently Using CPAP: No Currently Using BIPAP: No Cardiac: No Neurological: No : No (SPOUSE IS FIXED) Reproductive Disorders: No Female Reproductive Disorders: Denies Sexually Transmitted Disease: Yes HIV/AIDS: No Genitourinary: Yes UTI-Chronic Gastrointestinal: No Gastroesophageal Reflux Musculoskeletal: No Endocrine: Yes Diabetes, Non-Insulin dep Are Your Blood Sugars Over 250: No HEENT: No Cancer: No Psychosocial: Yes (panic attacks) Anxiety Integumentary: No Blood Disorders: No Family Medical History Reviewed Nursing Family Hx Family history: Asthma 03 MOTHER Family history: Diabetes mellitus (type 2 diabetes) 03 MOTHER History of - disorder (anxiety, Brother has heart murmur) 03 MOTHER No Pertinent Family Hx Physical Exam Vital Signs Vital Signs - First Documented 06/23/18 16:30 Temp 98.6 Pulse 76 Resp 20 B/P (MAP) 122/76 (91) Pulse Ox 100 O2 Delivery Room Air Height, Weight, BMI Height: 5'3.00" Weight: 125lbs. 0oz. 56.100125gk; 26.3 BMI Method:Stated General Appearance: WD/WN, no apparent distress Eyes: bilateral eye normal inspection, bilateral eye PERRL, bilateral eye EOMI Ears: bilateral ear auricle normal, bilateral ear canal normal, bilateral ear TM normal Nose: normal inspection Mouth/Throat: normal mouth inspection, pharynx normal Cardiovascular: normal peripheral pulses, regular rate, rhythm, no edema, no gallop, no JVD, no murmur Respiratory: chest non-tender, lungs clear, normal breath sounds, no respiratory distress, no accessory muscle use Gastrointestinal: normal bowel sounds, non tender, soft, no organomegaly, no pulsatile mass Neurologic/Psychiatric: alert, oriented x 3 Skin: normal color, warm/dry Progress/Results/Core Measures Results/Orders Lab Results My Orders Vital Signs/I&O Blood Pressure Mean: 91 Progress Progress Note : Time: 17:00 Progress Note I have seen and evaluated the patient. I believe this is all viral illness similar to the common cold. I informed the patient of normal laboratory findings. She agrees with complains of discharge, return precautions were given. Departure Impression Primary Impression: Common cold virus Disposition: 01 HOME, SELF-CARE Condition: Stable/Unchanged Departure-Patient Inst. Decision time for Depature: 17:13 Referrals: [facility] (PCP) Primary Care Physician IVY SWIFT APRN (Family) Primary Care Physician Patient Instructions: Cough, Runny Nose, and the Common Cold (DC) Add. Discharge Instructions: You may use ibuprofen and Tylenol as directed for pain. You may use over the counter cough, cold, and flu medicine as directed by the bottle. Follow up with [facility] in 1 week for recheck. Return back to the emergency room for any worsening symptoms or concerns as needed. All discharge instructions reviewed with patient and/or family. Voiced understanding. GULSHAN ONEAL Jun 23, 2018 17:16
[2018-06-23 17:27] VITALS: BP 111/57
--- OUTSIDE RECORDS SUMMARY | 2018-06-23 21:07 | XMS REPORT ---
Author Author SWIFTCHRISTY NunezELE [facility] Address [address] [place] [address] Care Team Providers Care Line Tender Flakeboard Name Role Phone IVY SWIFT Unavailable PROBLEMS Type Condition ICD9-CM Code [id number] Code Onset Dates Condition Status SNOMED Code Problem Bipolar 1 disorder, manic, mild F31.11 Active 98330990 Problem Adjustment disorder with depressed mood F43.21 Active 059772003 Problem Seasonal allergies J30.2 Active 524980016 Problem Anxiety F41.9 Active 31937331 Problem Normal in second trimester Z34.92 Active 04674305 Problem Normal in first trimester Z34.91 Active 42907685 Problem Mood disorder F39 Active 58827542 Problem Adjustment disorder with anxiety F43.22 Active 78365512 ALLERGIES No Information ENCOUNTERS Encounter Location Date Diagnosis [facility] [address] [address] Jun, [facility] [address] [address] Jun, [facility] [address] [address] May, [facility] [id number] [place] [address] 88398- 2707 May, [facility] [id number] [place] [address] 91155- 9120 Apr, Mood disorder F39 [facility] [address] [address] Apr, Syncope, unspecified syncope type R55 and Dizziness R42 [facility] [address] [address] Mar, Adjustment disorder with depressed mood F43.21 and Anxiety F41.9 [facility] [id number] [place] [address] February, Seasonal allergies J30.2 [facility] [id number] [place] [address] 33322- 8116 February, [facility] [id number] [place] [address]56 -[address]78 Dec, Seasonal allergic rhinitis, unspecified trigger J30.2 and Sore throat J02.9 [facility] [id number] [place] [address] 31538- 9105 Oct, Mood disorder F39 [place] [id number] [place] [address] 26815- 2798 Oct, Mood disorder F39 [facility] [id number] [place] [address] 16999- 6595 Sep, Adjustment disorder with depressed mood F43.21 ; Screening cholesterol level Z13.220 and Screening for diabetes mellitus Z13.1 [facility] [id number] [place] [address] 61810- 0539 Sep, Adjustment disorder with anxiety F43.22 and Adjustment disorder with depressed mood F43.21 [facility] [id number] [place] [address] 49598 -3352 Aug, Pharyngitis due to other organism J02.8 [facility] [id number] [place] [address] 80773 -2047 10 Aug, 2017 Sore throat J02.9 and Acute nasopharyngitis (common cold) J00 [facility] [id number] [place] [address] 64167 -4738 19 Mar, 2017 Acute nasopharyngitis J00 [facility] [id number] [place] [address] 14417- 3587 07 Mar, 2017 Adjustment disorder with anxiety F43.22 ; Adjustment disorder with depressed mood F43.21 and Bipolar 1 disorder, manic, mild F31.11 [facility] [address] [address] Mar, [facility] [id number] [place] [address] 23506- 0508 08 Nov, 2016 39 weeks gestation of Z3A.39 [facility] [id number] [place] [address] 58088- 6661 Nov, care in third trimester Z34.93 [facility] [id number] [place] [address] 42666- 2899 Oct, Normal in third trimester Z34.93 [facility] [id number] [place] [address] 34948- 2793 Oct, [facility] [id number] [place] [address] 66994- 8885 Oct, Third trimester at less than 36 weeks Z33.1 [facility] [id number] [place] [address] 99478- 0962 Oct, [facility] [id number] [place] [address] [id number] Oct, [facility] [address] [place] [address] 24286- 4738 Oct, Normal in third trimester Z34.93 [facility] [address] [place] [address] 46225- 0465 Sep, Normal in third trimester Z34.93 [facility] [address] [place] [address] 06984- 1490 Sep, Third trimester at less than 36 weeks Z33.1 and Encounter for immunization Z23 [facility] [address] [address] Aug, Adjustment disorder with anxiety F43.22 and Adjustment disorder with depressed mood F43.21 [facility] [id number] [address] 96[address] 16 Aug, 2016 Abnormal glucose tolerance test in O99.810 [facility] [id number] [place] [address] 83455- 4617 Aug, [facility] [address] [place] [address] 22722- 4553 Aug, Normal in second trimester Z34.92 [facility] [id number] [place] [address] 40661 -1144 Aug, Acute upper respiratory infection, unspecified J06.9 and Other viral agents as the cause of diseases classified elsewhere B97.89 [place] [id number] [place] [address] 69868- 4875 Jul, Adjustment disorder with depressed mood F43.21 and Bipolar 1 disorder, manic, mild F31.11 [place] [id number] [place] [address] 04419- 8583 Jul, Bipolar 1 disorder, manic, mild F31.11 ; Adjustment disorder with anxiety F43.22 and Adjustment disorder with depressed mood F43.21 [address] [place] [address] 15471- 9414 Jul, Normal in second trimester Z34.92 [facility] [address] [address] Jul, Contact dermatitis, unspecified contact dermatitis type, unspecified trigger L25.9 [place] [address] [place] [address] 31100- 5434 Jul, Adjustment disorder with depressed mood F43.21 ; Adjustment disorder with anxiety F43.22 and Bipolar 1 disorder, manic, mild F31.11 [place] [address] [place] [address] 21536- 3116 Jul, Adjustment disorder with depressed mood F43.21 and Bipolar 1 disorder, manic, mild F31.11 [facility] [id number] [place] [address] 45086- 5748 26 Jun, 2016 Adjustment disorder with depressed mood F43.21 and Bipolar 1 disorder, manic, mild F31.11 [facility] [place] [id number] [place] [address] 83662- 3584 19 Jun, 2016 Adjustment disorder with depressed mood F43.21 ; Bipolar 1 disorder, manic, mild F31.11 and Anxiety, generalized F41.1 [place] [id number] [place] [address] 34276- 1450 19 Jun, 2016 Normal in second trimester Z34.92 ; 18 weeks gestation of Z3A.18 and Encounter for immunization Z23 [place] [id number] [place] [address] 43370- 1784 07 Jun, 2016 Normal in first trimester Z34.91 [place] [id number] [place] [address] 37747- 1643 24 May, 2016 care in second trimester Z34.92 [facility] [id number] [place] [address] 37430- 5458 May, [place] [id number] [place] [address] 30569- 6646 May, [place] [id number] [place] [address] 88927- 2587 May, Major depressive disorder, recurrent, moderate F33.1 [place] [place] [id number] [place] [address] 29031- 8755 10 May, 2016 Normal in first trimester Z34.91 ; Pap smear for cervical cancer screening Z12.4 ; Screen for STD (sexually transmitted disease) Z11.3 and 12 weeks gestation of Z3A.12 [place] [id number] [place] [address] 47371- 2988 08 May, 2016 12 weeks gestation of Z3A.12 ; Unspecified abdominal pain R10.9 and Other specified related conditions, unspecified trimester O26.899 [place] [address] [address]- 47[address] Apr, [facility] [id number] [place] [address] 44893- 9782 Apr, [facility] [id number] [place] [address] 51506- 1211 February, [place] [id number] [place] [address] 74121- 6332 February, Bipolar 1 disorder, manic, mild F31.11 and Adjustment disorder with depressed mood F43.21 [place] [place] [id number] [place] [address] 00404- 7119 Dec, Major depressive disorder, single episode, moderate F32.1 ; Adjustment disorder with depressed mood F43.21 and Bipolar 1 disorder, manic, mild F31.11 [place] [id number] [place] [address] 27045- 7760 Dec, Adjustment disorder with depressed mood F43.21 ; Major depressive disorder, single episode, moderate F32.1 and Bipolar 1 disorder, manic, mild F31.11 [place] [address] [place] [address] 14441- 8960 Dec, Right hand pain M79.641 [place] [address] [place] [address] 14794- 9579 Dec, Major depressive disorder, single episode, moderate F32.1 and Adjustment disorder with depressed mood F43.21 [place] [address] [place] [address] 92110- 7600 Nov, Major depressive disorder, single episode, moderate F32.1 [place] [id number] [place] [address] 61853- 1092 Nov, Adjustment disorder with depressed mood F43.21 ; Bipolar 1 disorder, manic, mild F31.11 and Adjustment disorder with anxiety F43.22 [place] [id number] [place] [address] 06443- 8029 Oct, [place] [id number] [place] [address] 19289- 1474 Oct, Encounter for counseling regarding contraception Z30.9 ; Initiation of OCP (BCP) Z30.011 ; Routine screening for STI (sexually transmitted infection) Z11.3 and Dysmenorrhea N94.[address] [address]179- 3857 Sep, Acute upper respiratory infection, unspecified J06.9 ; Other viral agents as the cause of diseases classified elsewhere B97.89 and Post -nasal drip R09.[address] [address]- 1594 Aug, Depressive disorder, not elsewhere classified [id number] [place] [address] 66212- 0388 Jul, Depression, major, recurrent, moderate F33.1 [place] [id number] [place] [address] 06352- 3577 Jun, Major depressive disorder, recurrent episode, moderate 296.[address] 15278- 3981 Mar, Major depression, recurrent 296.30 [place] [id number] [place] [address] 55734- 2918 Jan, [place] [id number] [place] [address] 20494- 0487 Jan, [place] [id number] [place] [address] 43253- 5942 Dec, [address] 47412- 0303 Dec, [place] [id number] [place] [address] 25681- [address]772 Nov, [address] 83312- 9605 Nov, [facility] [place] [facility] [address] [id number] [place] [address]- 5666 Oct, [facility] [place] [facility] [address] [id number] [place] [address]- 9184 Oct, [facility] [place] [facility] [address] [id number] [place] [address]- 6973 Sep, [facility] [place] [facility] [address] [id number] [place] [address]- 9843 Sep, [facility] [place] [facility] [address] [id number] [place] [address]- 7524 Sep, [facility] [place] [facility] [address] [id number] [place] [address]- 4558 Sep, [facility] [place] [facility] [address] [id number] [place] [address]- 2665 Sep, [facility] [place] [facility] [address] [id number] [place] [address]- 5554 Sep, [facility] [place] [facility] [address] [id number] [place] [address]- 9544 Aug, [facility] [place] [facility] [address] [id number] [place] [address]- 5468 Aug, [facility] [place] [facility] [address] [id number] [address]- 2051 Aug, [facility] [place] [facility] [address] [id number] [place] [address]- 8164 Aug, [facility] [place] [facility] [address] [id number] [place] [address]- 4228 Jul, [facility] [place] [facility] [address] [id number] [place] [address]- 7056 Jul, [facility] [place] [facility] [address] [id number] [place] [address]- 7526 16 Jul, 2014 [facility] [place] [facility] [address] [id number] [place] [address]- 2546 16 Jul, 2014 [facility] [place] [facility] [address] [id number] [place] [address]- 1283 17 Jun, 2014 [facility] [place] [facility] [address] [id number] [place] [address] 2546 Jun, [facility] [place] [facility] [address] [id number] [place] [address]- 9966 Jun, [facility] [place] [facility] [address] [id number] [place] [address]- 6065 Jun, [facility] [place] [facility] [address] [id number] [place] [address]- 1129 Apr, [facility] [place] [facility] [address] [id number] [place] [address]- 9796 Apr, [facility] [place] [facility] [address] [id number] [place] [address]- 0494 Mar, [facility] [place] [facility] [address] [id number] [place] [address]- 2392 Mar, [facility] [place] [facility] [address] [id number] [place] [address]- 5283 Mar, [facility] [place] [facility] [address] [id number] [place] [address]- 2800 Mar, [facility] [place] [facility] [address] [id number] [place] [address]- 5059 February, [facility] [place] [facility] [address] [id number] [place] [address]- 1519 February, [facility] [place] [facility] [address] [id number] [place] [address]- 9968 February, [facility] [place] [facility] [address] [id number] [place] [address]- 2546 February, [facility] [place] [facility] [address] [id number] [place] [address]- 4582 February, [facility] [place] [facility] [address] [id number] [place] [address]- 8548 February, [facility] [place] [facility] [address] [id number] [place] [address]- 5596 February, [facility] [place] [facility] [address] [id number] [place] [address]- 0155 Jan, [facility] [place] [facility] [address] [id number] [place] [address]- 7477 Jan, [facility] [place] [facility] [address] [id number] [place] [address]- 4359 Jan, [facility] [place] [facility] [address] [id number] [place] [address]- 3183 Jan, [facility] [place] [facility] [address] [id number] [place] [address]- 3528 Jan, [facility] [place] [facility] [address] [id number] [place] [address]- 0432 Jan, [facility] [place] [facility] [address] [id number] [place] [address]- 5823 Jan, [facility] [place] [facility] [address] [id number] [place] [address]- 9202 Jan, [facility] [place] [facility] [address] [id number] [place] [address]- 1301 Oct, [facility] [place] [facility] [address] [id number] [place] [address]- 1216 Oct, [facility] [place] [facility] [address] [id number] [place] [address]- 9158 Sep, [facility] [place] [facility] [address] [id number] [place] [address]- 1637 Sep, [facility] [place] [facility] [address] [id number] [place] [address]- 4725 Jun, [facility] [place] [facility] [address] [id number] [place] [address]- 6381 04 Jun, 2013 [facility] [address] [id number] [place] [address]- 5533 27 Oct, 2012 [facility] [place] [facility] [address] [id number] [place] [address]- 6917 Sep, [facility] [address] [id number] [place] [address]- 7876 Sep, [facility] [place] [facility] [address] [id number] [place] [address]- 4393 26 Jun, 2012 [facility] [address] [id number] [place] [address]- 8821 25 Jun, 2012 [facility] [place] [facility] [address] [id number] [place] [address]- 6690 24 Jun, 2012 [facility] [address] [id number] [place] [address]- 8905 Jun, [facility] [place] [facility] [address] [id number] [place] [address]- 7242 20 Jun, 2012 [facility] [place] [facility] [address] [id number] [place] [address]- 1594 05 Jun, 2012 [facility] [place] [facility] [address] [id number] [place] [address]- 3547 Apr, [facility] [place] [facility] [address] [id number] [place] [address]- 2102 Mar, [facility] [place] [facility] [address] [id number] [place] [address]- 0406 Mar, [facility] [place] [facility] [address] [id number] [place] [address]- 8595 Dec, [facility] [place] [facility] [address] [id number] [place] [address]- 3791 Oct, [facility] [place] [facility] [address] [id number] [place] [address]- 4976 Aug, [facility] [place] [facility] [address] [facility] [id number] [address] 10 Aug, 2011 [facility] [address] [facility] [id number] [address] Aug, [facility] [address] [facility] [id number] [address] Aug, [facility] [address] [facility] [id number] [address] Aug, [facility] [address] [facility] [id number] [address] 24 Jul, 2011 [facility] [id number] [address] Jul, [facility] [address]00565[address] [address] Jun, [facility] [id number] [address] Jul, [facility] [id number] [address] Aug, [facility] [address]00565[address] [address] Aug, [facility] [address] [id number] [address] Oct, IMMUNIZATIONS No Known Immunizations SOCIAL HISTORY Never Assessed REASON FOR VISIT Requests return call PLAN OF CARE VITAL SIGNS MEDICATIONS Unknown Medications RESULTS No Results PROCEDURES No Known [...]
--- OUTSIDE RECORDS SUMMARY | 2018-06-23 21:07 | XMS REPORT ---
Author Author SWIFTIVY Nunez Organization [facility] Address [address] [place] [address] Care Team Providers Care Seamer Name Role Phone IVY SWIFT Unavailable PROBLEMS Type Condition ICD9-CM Code [id number] Code Onset Dates Condition Status SNOMED Code Problem Bipolar 1 disorder, manic, mild F31.11 Active 01482135 Problem Adjustment disorder with depressed mood F43.21 Active 706641318 Problem Seasonal allergies J30.2 Active 770310725 Problem Anxiety F41.9 Active 84657105 Problem Normal in second trimester Z34.92 Active 71478682 Problem Normal in first trimester Z34.91 Active 61801699 Problem Mood disorder F39 Active 56978928 Problem Adjustment disorder with anxiety F43.22 Active [id number] ALLERGIES No Known Allergies ENCOUNTERS Encounter Location Date Diagnosis [facility] [address] [address] Jun, [facility] [address] [address] Jun, [facility] [address] [address] May, [facility] [address] [address] Apr, Mood disorder F39 [facility] [address] [address] Apr, Syncope, unspecified syncope type R55 and Dizziness R42 [facility] [address] [address] Mar, Adjustment disorder with depressed mood F43.21 and Anxiety F41.9 [facility] [address] [address] February, Seasonal allergies J30.2 [place] [id number] [place] [address] 43664- 5661 February, [facility] [id number] [place] [address]23 -9656 Dec, Seasonal allergic rhinitis, unspecified trigger J30.2 and Sore throat J02.9 [place] [address] [address]- [address]67 Oct, Mood disorder F39 [place] [id number] [place] [address] 73264- 7916 Oct, Mood disorder F39 [place] [address] [address]- 29[address] Sep, Adjustment disorder with depressed mood F43.21 ; Screening cholesterol level Z13.220 and Screening for diabetes mellitus Z13.1 [place] [id number] [place] [address] 82297- 1379 Sep, Adjustment disorder with anxiety F43.22 and Adjustment disorder with depressed mood F43.21 [facility] [place] [id number] [place] [address] 15207 -7007 22 Aug, 2017 Pharyngitis due to other organism J02.8 [facility] [place] [id number] [place] [address] 52718 -2962 10 Aug, 2017 Sore throat J02.9 and Acute nasopharyngitis (common cold) J00 [facility] [id number] [place] [address] 51069 -3483 Mar, Acute nasopharyngitis J00 [place] [id number] [place] [address] 48346- 2584 07 Mar, 2017 Adjustment disorder with anxiety F43.22 ; Adjustment disorder with depressed mood F43.21 and Bipolar 1 disorder, manic, mild F31.11 [place] [id number] [place] [address] 30837- 0016 Mar, [facility] [address] [address] Nov, 39 weeks gestation of Z3A.39 [facility] [address], [place] [address] 7[address] Nov, care in third trimester Z34.93 [facility] [address] [place] [address] 251235- 1861 Oct, Normal in third trimester Z34.93 [facility] [address] [address] Oct, [facility] [address] [place] [address] 161110- 7402 Oct, Third trimester at less than 36 weeks Z33.1 [facility] [address] [place] [address] 44136- 5341 Oct, [facility] [id number] [place] [address] [id number] Oct, [facility] [address] [place] [address] 59950- 4593 Oct, Normal in third trimester Z34.93 [facility] [address], [place] [address]- 8732 Sep, Normal in third trimester Z34.93 [facility] [address] [place] [address] 19169770- 4509 07 Sep, 2016 Third trimester at less than 36 weeks Z33.1 and Encounter for immunization Z23 [facility] [id number] [place] [address] 27626- 6448 23 Aug, 2016 Adjustment disorder with anxiety F43.22 and Adjustment disorder with depressed mood F43.21 [facility] [address], [place] [address]- 7358 16 Aug, 2016 Abnormal glucose tolerance test in O99.810 [facility] [address], [place] [address]- 2839 Aug, [place] [id number] [place] [address] 81290- 9907 Aug, Normal in second trimester Z34.92 [facility] [address], [place] [address]696 Aug, Acute upper respiratory infection, unspecified J06.9 and Other viral agents as the cause of diseases classified elsewhere B97.89 [place] [id number] [place] [address] 18341- 9813 Jul, Adjustment disorder with depressed mood F43.21 and Bipolar 1 disorder, manic, mild F31.11 [place] [id number] [place] [address] 46674- 5415 Jul, Bipolar 1 disorder, manic, mild F31.11 ; Adjustment disorder with anxiety F43.22 and Adjustment disorder with depressed mood F43.21 [place] [id number] [place] [address] 88706- 0474 Jul, Normal in second trimester Z34.92 [facility] [address] [place] [address] 58284 -8219 Jul, Contact dermatitis, unspecified contact dermatitis type, unspecified trigger L25.9 [place] [address] [place] [address] 84113- 6587 Jul, Adjustment disorder with depressed mood F43.21 ; Adjustment disorder with anxiety F43.22 and Bipolar 1 disorder, manic, mild F31.11 [place] [address] [place] [address] 12807- 2967 Jul, Adjustment disorder with depressed mood F43.21 and Bipolar 1 disorder, manic, mild F31.11 [place] [address], [place] [address]- 7[address] Jun, Adjustment disorder with depressed mood F43.21 and Bipolar 1 disorder, manic, mild F31.11 [place] [id number] [address]- 8809 19 Jun, 2016 Adjustment disorder with depressed mood F43.21 ; Bipolar 1 disorder, manic, mild F31.11 and Anxiety, generalized F41.1 [place] [address] [address]- 9444 19 Jun, 2016 Normal in second trimester Z34.92 ; 18 weeks gestation of Z3A.18 and Encounter for immunization Z23 [place] [id number] [place] [address] 73347- 0677 07 Jun, 2016 Normal in first trimester Z34.91 [place] [id number] [place] [address] 60984- 4348 24 May, 2016 care in second trimester Z34.92 [place] [id number] [place] [address] 65837- 7902 May, [place] [id number] [place] [address] 94483- 6335 May, [place] [id number] [place] [address] 13281- 5971 15 May, 2016 Major depressive disorder, recurrent, moderate F33.1 [place] [id number] [place] [address] 70137- 2252 10 May, 2016 Normal in first trimester Z34.91 ; Pap smear for cervical cancer screening Z12.4 ; Screen for STD (sexually transmitted disease) Z11.3 and 12 weeks gestation of Z3A.12 [place] [id number] [place] [address] 90794- 4916 08 May, 2016 12 weeks gestation of Z3A.12 ; Unspecified abdominal pain R10.9 and Other specified related conditions, unspecified trimester O26.899 [place] [id number] [place] [address] 81228- 6107 Apr, [place] [address], [place] [address]- 0940 Apr, [place] [id number] [place] [address] 32090- 2843 February, [place] [id number] [place] [address] 61332- 0338 February, Bipolar 1 disorder, manic, mild F31.11 and Adjustment disorder with depressed mood F43.21 [place] [id number] [place] [address] 34892- 7166 Dec, Major depressive disorder, single episode, moderate F32.1 ; Adjustment disorder with depressed mood F43.21 and Bipolar 1 disorder, manic, mild F31.11 [place] [id number] [place] [address] 74336- 2177 Dec, Adjustment disorder with depressed mood F43.21 ; Major depressive disorder, single episode, moderate F32.1 and Bipolar 1 disorder, manic, mild F31.11 [place] [address] [place] [address] 84664- 4011 Dec, Right hand pain M79.641 [place] [id number] [place] [address] 71356- 8561 Dec, Major depressive disorder, single episode, moderate F32.1 and Adjustment disorder with depressed mood F43.21 [place] [address] [place] [address] 02687- 5370 Nov, Major depressive disorder, single episode, moderate F32.1 [place] [address] [place] [address] 06554- 4814 Nov, Adjustment disorder with depressed mood F43.21 ; Bipolar 1 disorder, manic, mild F31.11 and Adjustment disorder with anxiety F43.22 [place] [address] [place] [address] 93412- 8582 Oct, [place] [id number] [place] [address] 21283- 3193 13 Oct, 2015 Encounter for counseling regarding contraception Z30.9 ; Initiation of OCP (BCP) Z30.011 ; Routine screening for STI (sexually transmitted infection) Z11.3 and Dysmenorrhea N94.6 [place] [id number] [place] [address] 70970- 5213 02 Sep, 2015 Acute upper respiratory infection, unspecified J06.9 ; Other viral agents as the cause of diseases classified elsewhere B97.89 and Post -nasal drip R09.82 [place] [id number] [place] [address] 33429- 3245 Aug, Depressive disorder, not elsewhere classified 311 [place] [address] [id number] [place] [address] 41092- 3695 Jul, Depression, major, recurrent, moderate F33.1 [place] [id number] [place] [address] 71557- 1989 Jun, Major depressive disorder, recurrent episode, moderate 296.32 [place] [id number] [place] [address] 45358- 3553 04 Mar, 2015 Major depression, recurrent 296.30 [place] [id number] [place] [address] 19808- 4705 14 Jan, 2015 [place] [address] [id number] [place] [address] 74196- 6629 Jan, [place] [id number] [place] [address] 42844- 1311 Dec, [place] [id number] [place] [address] 81266- 8236 Dec, [place] [id number] [place] [address] 81669- 1863 Nov, [place] [id number] [place] [address] 08490- 6112 Nov, [place] [id number] [place] [address] 53063- 2132 Oct, [facility] [place] [facility] [address] [id number] [place] [address]- 7913 Oct, [facility] [place] [facility] [address] [id number] [place]11 Sep, [facility] [place] [facility] [address] [id number] [place] [address]- 2683 Sep, [facility] [place] [facility] [address] [id number] [place] [address]- 5039 Sep, [facility] [place] [facility] [address] [id number] [place] [address]- 0316 Sep, [facility] [place] [facility] [address] [id number] [place] [address]- 6460 Sep, [facility] [place] [facility] [address] [id number] [place] [address]- 9465 Sep, [facility] [place] [facility] [address] [id number] [place] [address]- 0396 Aug, [facility] [place] [facility] [address] [id number] [place] [address]- 6766 Aug, [facility] [place] [facility] [address] [id number] [place] [address]- 6932 Aug, [facility] [place] [facility] [address] [id number], [place] [address]- 2797 Aug, [facility] [place] [facility] [address] [id number], [place] [address]- 0276 Jul, [facility] [place] [facility] [address] [id number] [place] [address]- 7663 Jul, [facility] [place] [facility] [address] [id number] [place] [address]- 2239 Jul, [facility] [place] [facility] [address] [id number] [place] [address]- 8527 Jul, [facility] [place] [facility] [address] [id number] [place] [address]- 4656 17 Jun, 2014 [facility] [place] [facility] [address] [id number] [place] [address]- 6598 Jun, [facility] [place] [facility] [address] [id number] [place] [address]- 2546 Jun, [facility] [place] [facility] [address] [id number] [place] [address] 2546 Jun, [facility] [place] [facility] [address] [id number] [place] [address]- 2546 Apr, [facility] [place] [facility] [address] [id number] [place] [address]- 9860 Apr, [facility] [place] [facility] [address] [id number] [place] [address]- 3929 Mar, [facility] [place] [facility] [address] [id number] [place] [address]- 1397 Mar, [facility] [place] [facility] [address] [id number] [place] [address]- 7059 Mar, [facility] [place] [facility] [address] [id number] [place] [address]- 9432 Mar, [facility] [place] [facility] [address] [id number] [place] [address]- 1194 February, [facility] [place] [facility] [address] [id number] [place] [address]- 3410 February, [facility] [place] [facility] [address] [id number] [place] [address]- 1548 February, [facility] [place] [facility] [address] [id number] [place] [address]- 0326 February, [facility] [place] [facility] [address] [id number] [place] [address]- 2546 February, [facility] [place] [facility] [address] [id number] [place] [address]- 3772 February, [facility] [address] [id number] [place] [address]- 6684 February, [facility] [place] [facility] [address] [id number] [place] [address]- 2900 Jan, [facility] [place] [facility] [address] [id number] [place] [address]- 8260 Jan, [facility] [place] [facility] [address] [id number] [place] [address]- 7244 Jan, [facility] [place] [facility] [address] [id number] [place] [address]- 2118 Jan, [facility] [place] [facility] [address] [id number] [place] [address]- 7434 Jan, [facility] [place] [facility] [address] [id number] [place] [address]- 5817 Jan, [facility] [place] [facility] [address] [id number] [place] [address]- 9411 Jan, [facility] [place] [facility] [address] [id number] [place] [address]- 3342 Jan, [facility] [place] [facility] [address] [id number] [place] [address]- 3207 Oct, [facility] [place] [facility] [address] [id number] [place] [address]- 7193 Oct, [facility] [place] [facility] [address] [id number], [place] [address]- 6051 Sep, [facility] [place] [facility] [address] [id number] [place] [address]- 4191 Sep, [facility] [place] [facility] [address] [id number] [place] [address]- 9734 Jun, [facility] [place] [facility] [address] [id number] [place] [address]- 8478 Jun, [facility] [place] [facility] [address] [id number] [place] [address]- 5016 27 Oct, 2012 [facility] [place] [facility] [address] [id number] [place] [address]- 1514 Sep, [facility] [place] [facility] [address] [id number] [place] [address]- 6707 Sep, [facility] [place] [facility] [address] [id number] [place] [address]- 5656 26 Jun, 2012 [facility] [place] [facility] [address] [id number] [place] [address]- 5953 25 Jun, 2012 [facility] [place] [facility] [address] [id number] [place] [address]- 0884 24 Jun, 2012 [facility] [place] [facility] [address] [id number] [place] [address]- 3567 20 Jun, 2012 [facility] [place] [facility] [address] [id number] [place] [address]- 6991 20 Jun, 2012 [facility] [place] [facility] [address] [id number] [place] [address]- 8823 05 Jun, 2012 [facility] [place] [facility] [address] [id number] [place] [address]- 9642 Apr, [facility] [place] [facility] [address] [id number] [place] [address]- 5299 29 Mar, 2012 [facility] [place] [facility] [address] [id number] [place] [address]- 9928 Mar, [facility] [place] [facility] [address] [id number] [place] [address]- 0104 16 Dec, 2011 [facility] [place] [facility] [address] [id number] [place] [address]- 7641 Oct, [facility] [place] [facility] [address] [id number] [place] [address]- 0978 15 Aug, 2011 [facility] [place] [facility] [address] [id number] [place] [address]- 9821 Aug, [facility] [place] [facility] [address], [place] [address]- 9304 Aug, [facility] [address] 4549 Aug, [facility] [address], [place] [address]- 7424 Aug, [facility] [id number] [place] [address] 36065- 3341 Jul, [facility] [id number] [place] [address] 90786- 7373 Jul, [facility] [id number] [place] [address] 85280- 5489 Jun, [facility] [id number] [place] [address] 57584- 5163 Jul, [facility] [id number] [place] [address] 34620- 2771 Aug, [facility] [id number] [place] [address] 48850- 3983 Aug, [facility] [id number] [place] [address] 48899- 0363 Oct, IMMUNIZATIONS No Known Immunizations SOCIAL HISTORY Never Assessed REASON FOR VISIT med f/u paper work-ELIZABETH Dela Cruz, Pt needs refill on abilify. Was also wanting to know what she can do for her anxiety. PLAN OF CARE Activity Details Follow Up 3 Months, prn Reason:[facility] VITAL SIGNS Height 63.75 in 2018-04-02 Weight 121.3 lbs 2018-04-02 Temperature 98.1 degrees Fahrenheit 2018-04-02 Heart Rate 72 bpm 2018-04-02 Respiratory Rate 18 2018-04-02 BMI 20.98 kg/m2 2018-04-02 Blood pressure systolic 112 mmHg 2018-04-02 Blood pressure diastolic 62 mmHg 2018-04-02 MEDICATIONS Medication Instructions Dosage Frequency Start Date End Date Duration Status BusPIRone HCl 10 mg Orally Twice a day if needed 1 tablet Mar, 30 days Active Abilify 2 MG Orally Once a day 1 tablet 24h 30 days Active RESULTS No Results PROCEDURES [...]
--- OUTSIDE RECORDS SUMMARY | 2018-06-23 21:07 | XMS REPORT ---
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 Name Role Phone NIDIA BRAY Unavailable PROBLEMS Type Condition ICD9-CM Code FYE14-IA Code Onset Dates Condition Status SNOMED Code Problem Bipolar 1 disorder, manic, mild F31.11 Active 02767151 Problem Adjustment disorder with depressed mood F43.21 Active 268314240 Problem Seasonal allergies J30.2 Active 966467412 Problem Anxiety F41.9 Active 28355640 Problem Normal in second trimester Z34.92 Active 19556816 Problem Normal in first trimester Z34.91 Active 24818912 Problem Mood disorder F39 Active 08545936 Problem Adjustment disorder with anxiety F43.22 Active 78537307 ALLERGIES No Known Allergies ENCOUNTERS Encounter Location Date Diagnosis [place] [address] 67[address]- [address] Jun, [place] [address] 10231- 4273 Jun, [facility] [address] [place] [id number] [place] [address] 77010- 8026 May, [facility] [address] 90685- 7298 May, [facility] [id number] [place] [address] 75920- 0071 Apr, Mood disorder F39 [facility] [address] 52161- 9173 Apr, Syncope, unspecified syncope type R55 and Dizziness R42 [facility] [address] 90926- 4861 Mar, Adjustment disorder with depressed mood F43.21 and Anxiety F41.9 [facility] [id number] [place] [address] 84282 -7800 February, Seasonal allergies J30.2 [facility] [address] [place] [address] [id number] [place] [address] 11013- 1022 February, [facility] [address] 03637 -7991 Dec, Seasonal allergic rhinitis, unspecified trigger J30.2 and Sore throat J02.9 [place] [address] 70765- 9130 Oct, Mood disorder F39 [place] [address] [place] [id number] [place] [address] 72832- 3977 Oct, Mood disorder F39 [place] [address] 58781- 6679 Sep, Adjustment disorder with depressed mood F43.21 ; Screening cholesterol level Z13.220 and Screening for diabetes mellitus Z13.1 [place] [address] 02810- 1685 Sep, Adjustment disorder with anxiety F43.22 and Adjustment disorder with depressed mood F43.21 [facility] [place] [address] [id number] [place] [address] 63788 -9668 Aug, Pharyngitis due to other organism J02.8 [facility] [place] [address] [place] [id number] [place] [address] 96396 -0569 10 Aug, 2017 Sore throat J02.9 and Acute nasopharyngitis (common cold) J00 [facility] [place] [address] [id number] [place] [address] 06453 -4625 19 Mar, 2017 Acute nasopharyngitis J00 [facility] [address] [place] [id number] [place] [address] 47084- 8280 07 Mar, 2017 Adjustment disorder with anxiety F43.22 ; Adjustment disorder with depressed mood F43.21 and Bipolar 1 disorder, manic, mild F31.11 [facility] [id number] [place] [address] 47143- 2626 Mar, [facility] [address] [id number] [place] [address] 09448- 3512 08 Nov, 2016 39 weeks gestation of Z3A.39 [facility] [address] [id number] [place] [address] 32566- 8793 Nov, care in third trimester Z34.93 [facility] [id number] [place] [address] 62970- 1829 Oct, Normal in third trimester Z34.93 [facility] [address] [address] [id number] [place] [address] 42812- 3245 Oct, [facility] [address] [id number] [place] [address] 36765- 5097 Oct, Third trimester at less than 36 weeks Z33.1 [facility] [address] [address] [id number] [place] [address] 23636- 0470 Oct, [facility] [address] [place] [id number] [place] [address] [id number] Oct, [facility] [id number] [place] [address] 25235- 9893 Oct, Normal in third trimester Z34.93 [facility] [id number] [place] [address] 66984- 8128 Sep, Normal in third trimester Z34.93 [facility] [address] [place] [address] [id number] [place] [address] 52259- 9226 Sep, Third trimester at less than 36 weeks Z33.1 and Encounter for immunization Z23 [facility] [address] [address]- 6614 Aug, Adjustment disorder with anxiety F43.22 and Adjustment disorder with depressed mood F43.21 [place] [address] [address]- 8152 16 Aug, 2016 Abnormal glucose tolerance test in O99.810 [place] [address] [id number] [place] [address] 23847- 2985 Aug, [place] [id number] [place] [address] 20771- 3689 Aug, Normal in second trimester Z34.92 [facility] [id number] [place] [address] 41391 -8232 Aug, Acute upper respiratory infection, unspecified J06.9 and Other viral agents as the cause of diseases classified elsewhere B97.89 [place] [address] [id number] [place] [address] 31031- 6593 Jul, Adjustment disorder with depressed mood F43.21 and Bipolar 1 disorder, manic, mild F31.11 [place] [address] [id number] [place] [address] 27159- 0515 Jul, Bipolar 1 disorder, manic, mild F31.11 ; Adjustment disorder with anxiety F43.22 and Adjustment disorder with depressed mood F43.21 [place] [address] [place] [address] 62773- 0856 Jul, Normal in second trimester Z34.92 [facility] [address] [address] Jul, Contact dermatitis, unspecified contact dermatitis type, unspecified trigger L25.9 [place] [address] [place] [address] 31618- 8674 Jul, Adjustment disorder with depressed mood F43.21 ; Adjustment disorder with anxiety F43.22 and Bipolar 1 disorder, manic, mild F31.11 [place] [address] [place] [address] 90634- 7615 04 Jul, 2016 Adjustment disorder with depressed mood F43.21 and Bipolar 1 disorder, manic, mild F31.11 [place] [address] [place] [address] 37698- 5259 26 Jun, 2016 Adjustment disorder with depressed mood F43.21 and Bipolar 1 disorder, manic, mild F31.11 [place] [address] [place] [id number] [place] [address] 53687- 1450 19 Jun, 2016 Adjustment disorder with depressed mood F43.21 ; Bipolar 1 disorder, manic, mild F31.11 and Anxiety, generalized F41.1 [place] [address] [place] [id number] [place] [address] 32709- 2170 19 Jun, 2016 Normal in second trimester Z34.92 ; 18 weeks gestation of Z3A.18 and Encounter for immunization Z23 [place] [address] [id number] [place] [address] 93833- 0374 07 Jun, 2016 Normal in first trimester Z34.91 [place] [address] 28902- 5662 24 May, 2016 care in second trimester Z34.92 [place] [address] [id number] [place] [address] 56322- 4361 16 May, 2016 [place] [address] [place] [id number] [place] [address] 83948- 3030 May, [place] [address] [place] [id number] [place] [address] 09086- 9301 15 May, 2016 Major depressive disorder, recurrent, moderate F33.1 [place] [address] [id number] [place] [address] 64163- 1851 10 May, 2016 Normal in first trimester Z34.91 ; Pap smear for cervical cancer screening Z12.4 ; Screen for STD (sexually transmitted disease) Z11.3 and 12 weeks gestation of Z3A.12 [place] [address] [place] [id number] [place] [address] 02474- 8953 08 May, 2016 12 weeks gestation of Z3A.12 ; Unspecified abdominal pain R10.9 and Other specified related conditions, unspecified trimester O26.899 [place] [address], [place] [address]- 1042 Apr, [place] [address] [place] [id number] [place] [address] 76809- 0828 Apr, [place] [address] [place] [id number] [place] [address] 42486- 0917 February, [place] [address] [place] [id number] [place] [address] 91580- 9211 February, Bipolar 1 disorder, manic, mild F31.11 and Adjustment disorder with depressed mood F43.21 [place] [address] [place] [id number] [place] [address] 13333- 6557 Dec, Major depressive disorder, single episode, moderate F32.1 ; Adjustment disorder with depressed mood F43.21 and Bipolar 1 disorder, manic, mild F31.11 [place] [address] [place] [id number] [place] [address] 91397- 8853 Dec, Adjustment disorder with depressed mood F43.21 ; Major depressive disorder, single episode, moderate F32.1 and Bipolar 1 disorder, manic, mild F31.11 [place] [address] [place] [address] 62058- 6015 Dec, Right hand pain M79.641 [place] [address] [place] [address] 32555- 0523 Dec, Major depressive disorder, single episode, moderate F32.1 and Adjustment disorder with depressed mood F43.21 [place] [address] [place] [address] 52187- 6590 Nov, Major depressive disorder, single episode, moderate F32.1 [place] [address] [place] [id number] [place] [address] 37567- 1241 Nov, Adjustment disorder with depressed mood F43.21 ; Bipolar 1 disorder, manic, mild F31.11 and Adjustment disorder with anxiety F43.22 [place] [address] [place] [id number] [place] [address] 31566- 4457 Oct, [place] [address] [place] [id number] [place] [address] 13603- 9016 Oct, Encounter for counseling regarding contraception Z30.9 ; Initiation of OCP (BCP) Z30.011 ; Routine screening for STI (sexually transmitted infection) Z11.3 and Dysmenorrhea N94.6 [place] [address] [place] [id number] [place] [address] 66413- 4209 Sep, Acute upper respiratory infection, unspecified J06.9 ; Other viral agents as the cause of diseases classified elsewhere B97.89 and Post -nasal drip R09.82 [place] [id number] [place] [address] 45605- 8608 Aug, Depressive disorder, not elsewhere classified [address] [place] [id number] [place] [address] 92008- 4136 Jul, Depression, major, recurrent, moderate F33.1 [place] [address] [place] [id number] [place] [address] 43803- 1330 Jun, Major depressive disorder, recurrent episode, moderate 296.32 [place] [id number] [place] [address] 66952- 9562 04 Mar, 2015 Major depression, recurrent 296.30 [place] [address] [place] [id number] [place] [address] 00837- 2608 14 Jan, 2015 [place] [address] [place] [id number] [place] [address] 27499- 9644 Jan, [place] [address] [place] [id number] [place] [address] 21762- 1518 Dec, [place] [address] [place] [id number] [place] [address] 92937- 7295 Dec, [place] [address] [place] [id number] [place] [address] 33421- 9912 Nov, [place] [address] [place] [address] [place] [address]- 4366 10 Nov, 2014 [facility] [address] [id number] [place] [address]- 0805 Oct, [facility] [place] [facility] [address] [id number] [place] [address]- 5083 Oct, [facility] [address] [id number] [place] [address]- 7056 Sep, [facility] [place] [facility] [address] [id number] [place] [address]- 4145 Sep, [facility] [place] [facility] [address] [id number] [place] [address]- 2713 Sep, [facility] [place] [facility] [address] [id number] [place] [address]- 9703 Sep, [facility] [address] [facility] [id number] [place] [address]- 7750 Sep, [facility] [place] [facility] [address] [id number] [place] [address]- 0998 Sep, [facility] [place] [facility] [address] [id number] [place] [address]- 1208 Aug, [facility] [place] [facility] [address] [facility] [id number] [place] [address]- 0054 Aug, [facility] [place] [facility] [address] [id number] [place] [address]- 3311 Aug, [facility] [place] [facility] [address] [id number] [place] [address]- 4671 Aug, [facility] [place] [facility] [address] [id number] [place] [address]- 0279 Jul, [facility] [place] [facility] [address] [id number] [place] [address]- 0516 Jul, [facility] [place] [facility] [address] [id number] [place] [address]- 1009 Jul, [facility] [place] [facility] [address] [id number] [place] [address]- 9520 16 Jul, 2014 [facility] [place] [facility] [address] [id number] [place] [address]- 0682 Jun, [facility] [place] [facility] [address] [id number] [place] [address]- 5839 Jun, [facility] [place] [facility] [address] [id number] [place] [address]- 0397 Jun, [facility] [place] [facility] [address] [id number] [place] [address]- 1104 Jun, [facility] [place] [facility] [address] [id number] [place] [address]- 3088 Apr, [facility] [place] [facility] [address] [id number] [place] [address]- 8460 Apr, [facility] [place] [facility] [address] [id number] [place] [address]- 1837 Mar, [facility] [place] [facility] [address] [id number] [place] [address]- 7821 Mar, [facility] [place] [facility] [address] [id number] [place] [address]- 8805 Mar, [facility] [place] [facility] [address] [id number] [place] [address]- 3621 Mar, [facility] [place] [facility] [address] [id number] [address]- 9545 February, [facility] [place] [facility] [address] [id number] [place] [address]- 3296 February, [facility] [place] [facility] [address] [id number] [place] [address]- 4406 February, [facility] [place] [facility] [address] [id number] [place] [address]- 0336 February, [facility] [place] [facility] [address] [id number] [place] [address]- 8315 February, [facility] [address] [id number] [place] [address]- 4295 February, [facility] [place] [facility] [address] [id number] [place] [address]- 4447 February, [facility] [place] [facility] [address] [id number] [place] [address]- 8963 Jan, [facility] [place] [facility] [address] [id number] [place] [address]- 8877 Jan, [facility] [place] [facility] [address] [id number] [place] [address]- 9756 Jan, [facility] [place] [facility] [address] [id number] [place] [address]- 5418 Jan, [facility] [place] [facility] [address] [id number] [place] [address]- 9158 Jan, [facility] [place] [facility] [address] [id number] [place] [address]- 2298 Jan, [facility] [place] [facility] [address] [id number] [place] [address]- 5060 Jan, [facility] [place] [facility] [address] [id number] [place] [address]- 5243 Jan, [facility] [place] [facility] [address] [id number] [place] [address]- 6209 Oct, [facility] [place] [facility] [address] [id number] [place] [address]- 4670 Oct, [facility] [place] [facility] [address] [id number] [place] [address]- 2050 Sep, [facility] [place] [facility] [address] [id number] [place]45 Sep, [facility] [place] [facility] [address] [id number] [place] [address]- 5471 Jun, [facility] [place] [facility] [address] [id number] [place] [address]- 6774 04 Jun, 2013 [facility] [address] [id number] [place] [address]- 4448 Oct, [facility] [place] [facility] [address] [id number] [place] [address]- 8016 Sep, [facility] [address] [id number] [place] [address]- 8925 Sep, [facility] [place] [facility] [address] [id number] [place] [address]- 2490 26 Jun, 2012 [facility] [place] [facility] [address] [id number] [place] [address]- 5633 25 Jun, 2012 [facility] [place] [facility] [address] [id number] [place] [address]- 4223 24 Jun, 2012 [facility] [place] [facility] [address] [id number] [place] [address]- 0177 Jun, [facility] [address] [id number] [place] [address]- 5485 20 Jun, 2012 [facility] [place] [facility] [address] [id number] [place] [address]- 2058 05 Jun, 2012 [facility] [place] [facility] [address] [id number] [place] [address]- 5203 Apr, [facility] [place] [facility] [address] [id number] [place] [address]- 8437 Mar, [facility] [place] [facility] [address] [id number] [place] [address]- 7989 Mar, [facility] [place] [facility] [address] [id number] [place] [address]- 9541 Dec, [facility] [place] [facility] [address] [id number] [place] [address]- 1736 Oct, [facility] [place] [facility] [address] [id number] [place] [address]- 7921 Aug, [facility] [address] [address]- 8639 Aug, [facility] [address] [facility] [id number] [address]- 1502 Aug, [facility] [address] [address]- 0460 Aug, [facility] [address] [facility] [id number] [place] [address] 81626- 2100 Aug, [facility] [id number] [place] [address] 55769- 9056 Jul, [facility] [id number] [place] [address] 42927- 7875 Jul, [facility] [id number] [place] [address] 33739- 2051 Jun, [facility] [id number] [place] [address] 26328- 8492 Jul, [facility] [address] [address]- 9979 Aug, [facility] [address] [address]- 1820 Aug, [facility] [address] [address]- 5661 Oct, IMMUNIZATIONS No Known Immunizations SOCIAL HISTORY Never Assessed REASON FOR VISIT Bilat ear pain started yesterday JStrasserRN PLAN OF CARE Activity Details Follow Up prn Reason: VITAL SIGNS Height 63.75 in 2018-03-13 Weight 121.4 lbs 2018-03-13 Temperature 98.3 degrees Fahrenheit 2018-03-13 Heart Rate 86 bpm 2018-03-13 Respiratory Rate 22 2018-03-13 BMI 21.00 kg/m2 2018-03-13 Blood pressure systolic 90 mmHg 2018-03-13 Blood pressure diastolic 60 mmHg 2018-03-13 MEDICATIONS Medication Instructions Dosage Frequency Start Date End Date Duration Status Loratadine 10 MG Orally Once a day 1 tablet 24h 30 day(s) Active RESULTS No Results PROCEDURES No Known [...]
--- OUTSIDE RECORDS SUMMARY | 2018-06-23 21:19 | XMS REPORT | Continuity of Care Document ---
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 Outpatient KACEY SCRUGGS DO [facility] RAD NORMAL [id number] 07/09/2016 10:08:00 07/09/2016 12:30:00 DIS Emergency EMILEE QUIROZ MD Via [facility] ER POSS CONTRACTIONS 18 WEEKS PREG [id number] 07/08/2016 00:10:00 07/08/2016 03:17:00 DIS Emergency EMILEE QUIROZ MD Via [facility] ER HEADACHE, 17 WKS PREG [id number] 07/01/2016 20:38:00 07/01/2016 23:50:00 DIS Emergency JAMEY ROMAN [facility] ER VOMITING/DIZZY/ HEADACHE [id number] 06/27/2016 20:05:00 06/27/2016 21:07:00 DIS Emergency GLO BLOOM APRN [facility] ER FALL [id number] 06/13/2016 00:28:00 06/13/2016 01:21:00 DIS Emergency HERNANDO SUNSHINE DO [facility] ER ALTERCATION [id number] 06/12/2016 00:37:00 06/12/2016 01:45:00 DIS Emergency HERNANDO SUNSHINE DO [facility] ER HURTS TO URINATE [id number] 06/06/2016 21:08:00 06/06/2016 23:03:00 DIS Emergency GLO BLOOM APRN [facility] ER NAUSEA;DIZZINESS [id number] 05/30/2016 17:16:00 05/30/2016 23:59:59 CLS Outpatient KACEY SCRUGGS DO [facility] RAD CRAMPING [id number] 05/12/2016 18:43:00 05/12/2016 20:21:00 DIS Emergency JAMEY ROMAN [facility] ER ABD PAIN [id number] 04/26/2016 15:25:00 04/26/2016 18:28:00 DIS Emergency JAMEY ROMAN [facility] ER LATE PERIOD/KNOT IN ABD AREA [id number] 02/26/2016 21:34:00 02/26/2016 22:47:00 DIS Emergency OSVALDO VALENTIN MD [facility] ER [id number] 01/28/2016 13:32:00 01/28/2016 16:19:00 DIS Emergency JAMEY ROMAN [facility] ER [id number] 06/15/2015 17:54:00 06/15/2015 18:45:00 DIS Emergency GLO BLOOM APRN [facility] ER [id number] 10/31/2014 16:15:00 10/31/2014 17:20:00 DIS Emergency GLO BLOOM [employer] [facility] ER [id number] 10/08/2014 21:47:00 10/08/2014 22:15:00 DIS Emergency JUVENAL ROGER MD [facility] ER [id number] 04/16/2014 21:59:00 04/16/2014 22:40:00 DIS Emergency GLO BLOOM [employer] [facility] ER DIZZINESS LEFT SIDE PAIN [id number] 03/21/2014 14:30:00 03/21/2014 15:36:00 DIS Emergency [id number] 02/13/2014 23:05:00 02/13/2014 23:40:00 DIS Emergency HERNANDO SUNSHINE DO [facility] ER ABD PAIN [id number] 01/24/2014 01:45:00 01/26/2014 17:45:00 DIS Inpatient TATIANA WEI MD [facility] WS CTXS/ LABOR [id number] 01/22/2014 23:06:00 01/23/2014 00:20:00 DIS Outpatient SHEBA CAMPOS KACEY K [facility] CTXS [id number] 01/21/2014 16:02:00 01/21/2014 17:08:00 DIS Outpatient TATIANA WEI MD [facility] ABD PAIN [id number] 01/20/2014 23:16:00 01/21/2014 00:48:00 DIS Outpatient TATIANA WEI MD [facility] CONTRACTIONS,FLUID LEAKING [id number] 01/05/2014 16:57:00 01/05/2014 18:40:00 DIS Outpatient TATIANA WEI MD [facility] CONTRACTIONS [id number] 12/27/2013 15:52:00 12/27/2013 18:45:00 DIS Outpatient TATIANA WEI MD [facility] ABD PAIN; BACK PAIN [id number] 12/22/2013 21:16:00 12/22/2013 22:55:00 DIS Emergency GLO BLOOM APRN Via [facility] ER FELL OFF BED @ 34 WEEKS, HEAD PAIN [id number] 12/10/2013 23:40:00 12/11/2013 10:40:00 DIS Outpatient TATIANA WEI MD [facility] LOUD NOISES BOTHER PT, FEVER,COUGH,32 WKS PREG [id number] 12/10/2013 23:07:00 12/10/2013 23:37:00 DIS Emergency JUVENAL ROGER MD [facility] ER LOUD NOISES BOTHER PT, FEVER,COUGH [id number] 12/07/2013 06:15:00 12/07/2013 07:47:00 DIS Emergency HERNANDO SUNSHINE DO [facility] ER DIZZY,COUGHING,DIARRHEA [id number] 11/23/2013 13:22:00 11/23/2013 17:56:00 DIS Emergency JAMEY ROMAN [facility] ER LOW BLOOD SUGAR/FEVER 29 WKS PREG [id number] 10/27/2013 17:11:00 10/27/2013 20:00:00 DIS Outpatient TATIANA WEI MD [facility] C/O PREMATURE LABOR [id number] 10/23/2013 16:35:00 10/23/2013 18:15:00 DIS Outpatient TATIANA WEI MD [facility] WSo BLEEDING [id number] 10/05/2013 20:27:00 10/05/2013 21:46:00 DIS Emergency GLO BLOOM APRN [facility] ER N/V/D [id number] 09/23/2013 14:18:00 09/23/2013 23:59:59 CLS Outpatient TATIANA WEI MD [facility] RAD FUNDAL HEIGHT DISCREPENCY [id number] 09/03/2013 23:00:00 09/03/2013 23:30:00 DIS Emergency JONG DOHERNANDO [facility] ER ALTERCATION,BACK PAIN [id number] 08/27/2013 18:08:00 08/27/2013 20:58:00 DIS Emergency BARBIE LINCOLN, OSVALDO Grace [facility] ER FELL AT HOME; ABD PAIN ; L KNEE PAIN [id number] 08/21/2013 14:28:00 08/21/2013 16:21:00 DIS Emergency GLO BLOOM APRN [facility] ER 15 WKS; ABD PAIN [id number] 07/21/2013 14:51:00 07/21/2013 15:58:00 DIS Emergency [id number] 06/28/2013 15:38:00 06/28/2013 23:59:59 CLS Outpatient [id number] 05/09/2013 17:13:00 05/09/2013 19:04:00 DIS Emergency [id number] 04/30/2013 18:48:00 04/30/2013 21:44:00 DIS Emergency [id number] 04/04/2013 20:11:00 04/04/2013 21:26:00 DIS Emergency [id number] 03/04/2013 13:16:00 03/04/2013 23:59:59 CLS Outpatient MAJOR, GAMALIEL MANUFACTURING TECHNOLOGIST [facility] QUICK [id number] 08/21/2016 01:00:00 Document Registration [id number] 08/20/2016 23:48:00 Document Registration [id number] 11/16/2014 10:01:00 Document Registration [id number] 11/16/2014 10:01:00 Document Registration [id number] 11/16/2014 10:01:00 Document Registration [id number] 11/16/2014 10:01:00 Document Registration [id number] 11/16/2014 10:01:00 Document Registration [id number] 11/16/2014 10:01:00 Document Registration [id number] 11/16/2014 10:01:00 Document Registration [id number] 11/16/2014 10:01:00 Document Registration [id number] 11/16/2014 10:01:00 Document Registration [id number] 11/16/2014 10:01:00 Document Registration [id number] 11/16/2014 10:01:00 Document Registration [id number] 11/16/2014 10:01:00 Document Registration [id number] 11/16/2014 10:01:00 Document Registration [id number] 11/16/2014 10:01:00 Document Registration [id number] 11/16/2014 10:01:00 Document Registration [id number] 08/26/2011 09:52:00 Document Registration [id number] 05/09/2011 17:28:00 Document Registration [id number] 03/20/2011 15:01:00 Document Registration [id number] 12/06/2010 22:29:00 Document Registration [id number] 01/22/2010 14:40:00 Document Registration
== END 2018-06-23 17:27 | disposition home or self-care (01) ==
LOC: EDUNIT# 15:55 → ER 15:56
DX: J00 Acute nasopharyngitis [common cold] (principal); J45.909 Unspecified asthma, uncomplicated; F41.0 Panic disorder [episodic paroxysmal anxiety]; E11.9 Type 2 diabetes mellitus without complications; K21.9 Gastro-esophageal reflux disease without esophagitis; Z87.440 Personal history of urinary (tract) infections; Z82.49 Family history of ischemic heart disease and other diseases of the circulatory system; Z87.891 Personal history of nicotine dependence
CPT/HCPCS: 87430

== ENCOUNTER 2018-08-05 11:54 | Emergency (ER) | payer SELFPAY ==
[~2018-08-05] VITALS: Ht 162.6 cm; Wt 49.9 kg
--- NOTE | 2018-08-05 12:04 | ED GU-Female ---
General Stated Complaint: UTI SYMPTOMS Source: patient Exam Limitations: no limitations History of Present Illness Date Seen by Provider: Aug 05, 2018 Time Seen by Provider: 11:55 Initial Comments Patient presents to the ER by private conveyance with chief complaint of 3 days of progressively worsening urinary symptoms of burning. She denies any discharge , bleeding, fevers flank pain but she does have nausea without vomiting. She does smoke regularly but does not drink or use recreational drugs Allergies and Home Medications Allergies Coded Allergies: No Known Drug Allergies (Unverified , 06/23/18) Home Medications Hydroxyzine Pamoate 25 Mg Capsule, 25 MG PO Q6H PRN for ANXIETY Prescribed by: GLO BLOOM on 05/26/18 185 Phenazopyridine HCl 100 Mg Tablet, 100 MG PO TID, (Reported) Sulfamethoxazole/Trimethoprim 1 Each Tablet, 1 EACH PO BID, (Reported) Patient Home Medication List Home Medication List Reviewed: Yes Review of Systems Review of Systems Constitutional: No chills, No diaphoresis EENTM: No ear discharge, No ear pain Respiratory: no symptoms reported Cardiovascular: no symptoms reported Gastrointestinal: No abdominal pain, No constipation, No diarrhea; nausea Genitourinary: dysuria; denies frequency, denies flank pain Past Ohflmhs-Jfpwcs-Affqpg Hx Patient Social History Alcohol Use: Denies Use Recreational Drug Use: No Smoking Status: Current Everyday Smoker Type Used: Electronic/Vapor 2nd Hand Smoke Exposure: No Recent Hopitalizations: No Immunizations Up To Date Tetanus Booster (TDap): Unknown PED Vaccines UTD: No Date of Influenza Vaccine: Oct 04, 2016 Seasonal Allergies Seasonal Allergies: Yes Past Medical History Surgeries: No Respiratory: No Asthma Currently Using CPAP: No Currently Using BIPAP: No Cardiac: No Neurological: No Reproductive Disorders: No Female Reproductive Disorders: Denies Sexually Transmitted Disease: Yes HIV/AIDS: No Genitourinary: Yes UTI-Chronic Gastrointestinal: No Gastroesophageal Reflux Musculoskeletal: No Endocrine: Yes Diabetes, Non-Insulin dep HEENT: No Cancer: No Psychosocial: Yes (panic attacks) Anxiety Integumentary: No Blood Disorders: No Family Medical History Family history: Asthma 03 MOTHER Family history: Diabetes mellitus (type 2 diabetes) 03 MOTHER History of - disorder (anxiety, Brother has heart murmur) 03 MOTHER No Pertinent Family Hx Physical Exam Vital Signs Vital Signs - First Documented 08/05/18 11:57 Temp 97.7 Pulse 77 Resp 20 B/P (MAP) 120/70 (87) Pulse Ox 100 O2 Delivery Room Air Capillary Refill : Height, Weight, BMI Height: 5'3.00" Weight: 125lbs. 0oz. 56.432319vb; 26.3 BMI Method:Stated General Appearance: WD/WN, no apparent distress HEENT: PERRL/EOMI, pharynx normal Cardiovascular: normal peripheral pulses, regular rate, rhythm Respiratory: no respiratory distress, no accessory muscle use Gastrointestinal: normal bowel sounds, non tender Neurologic/Psychiatric: alert, normal mood/affect Progress/Results/Core Measures Suspected Sepsis SIRS Temperature: Pulse: Respiratory Rate: Blood Pressure / Mean: Results/Orders Lab Results Laboratory Tests Test 08/05/18 12:03 Range/Units Urine Color YELLOW Urine Clarity VERY CLOUDY H Urine pH 6 5-9 Urine Specific [place] 1.025 H 1.016-1.022 Urine Protein 2+ H NEGATIVE Urine Glucose (UA) NEGATIVE NEGATIVE Urine Ketones 2+ H NEGATIVE Urine Nitrite NEGATIVE NEGATIVE Urine Bilirubin NEGATIVE NEGATIVE Urine Urobilinogen 1 NORMAL MG/DL Urine Leukocyte Esterase 3+ H NEGATIVE Urine RBC (Auto) 3+ H NEGATIVE Urine RBC 10-25 H /HPF Urine WBC 50-100 H /HPF Urine Squamous Epithelial Cells 10-25 H /HPF Urine Crystals NONE /LPF Urine Bacteria FEW H /HPF Urine Casts NONE /LPF Urine Mucus LARGE H /LPF Urine Culture Indicated YES My Orders Orders - BRENDA KIRBY Ua Culture If Indicated (08/05/18 11:56) Urine Bedside (08/05/18 12:04) Urine Culture (08/05/18 12:03) Vital Signs/I&O 08/05/18 11:57 Temp 97.7 Pulse 77 Resp 20 B/P (MAP) 120/70 (87) Pulse Ox 100 O2 Delivery Room Air Capillary Refill : Departure Impression Primary Impression: UTI (urinary tract infection) Qualified Codes: N30.00 - Acute cystitis without hematuria Disposition: 01 HOME, SELF-CARE Condition: Stable Departure-Patient Inst. Decision time for Depature: 12:33 Referrals: [facility] (PCP) Primary Care Physician IVY SWIFT APRN (Family) Primary Care Physician Patient Instructions: Acute Cystitis (DC) Add. 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 Scripts Nitrofurantoin Macrocrystal (Nitrofurantoin) 100 Mg Capsule 100 MG PO BID for 7 Days, #14 CAP 0 Refills Prov: BRENDA KIRBY 08/05/18 BRENDA KIRBY Aug 05, 2018 12:04
[2018-08-05 12:10] LABS: BILIRUBIN,URINE NEGATIVE (NEGATIVE); CLARITY,URINE VERY CLOUDY; COLOR,URINE YELLOW; GLUCOSE, URINE (UA) NEGATIVE (NEGATIVE); KETONES,URINE 2+ (NEGATIVE); LEUKOCYTE ESTERASE ,URINE 3+ (NEGATIVE); NITRITE,URINE NEGATIVE (NEGATIVE); PH,URINE 6 (5-9); PROTEIN,URINE 2+ (NEGATIVE); UROBILINOGEN,URINE 1 MG/DL (NORMAL)
[2018-08-05 12:29] LABS: BACTERIA,URINE FEW /HPF; WBC,URINE 50-100 /HPF
[2018-08-05] MEDS ORDERED: NITR100C PO (12:34)
[2018-08-05 12:37] VITALS: BP 120/70
--- OUTSIDE RECORDS SUMMARY | 2018-08-05 13:56 | XMS REPORT ---
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 Name Role Phone NIDIA BRAY Unavailable PROBLEMS Type Condition ICD9-CM Code [id number] Code Onset Dates Condition Status SNOMED Code Problem Bipolar 1 disorder, manic, mild F31.11 Active 84480214 Problem Adjustment disorder with depressed mood F43.21 Active 717681978 Problem Seasonal allergies J30.2 Active 096403367 Problem Anxiety F41.9 Active 21707739 Problem Normal in second trimester Z34.92 Active 17332809 Problem Normal in first trimester Z34.91 Active 93317470 Problem Mood disorder F39 Active 00471031 Problem Adjustment disorder with anxiety F43.22 Active 95926611 ALLERGIES No Known Allergies ENCOUNTERS Encounter Location Date Diagnosis [facility] IN [facility] [address] [address] May, Allergic rhinitis, unspecified seasonality, unspecified trigger J30.9 [facility] [address] [address] May, [facility] [address] [address] Apr, Mood disorder F39 [facility] [address] [address] Apr, Syncope, unspecified syncope type R55 and Dizziness R42 [facility] [address] [address] Mar, Adjustment disorder with depressed mood F43.21 and Anxiety F41.9 [facility] IN [facility] [address] [address] February, Seasonal allergies J30.2 [facility] [address] [place] [id number] [place] [address] February, [facility] WALK IN [facility] [id number] [place] [address] Dec, Seasonal allergic rhinitis, unspecified trigger J30.2 and Sore throat J02.9 [place] [address] [address] Oct, Mood disorder F39 [place] [address] [address] Oct, Mood disorder F39 [place] [address] [address] Sep, Adjustment disorder with depressed mood F43.21 ; Screening cholesterol level Z13.220 and Screening for diabetes mellitus Z13.1 [place] [address] [address] Sep, Adjustment disorder with anxiety F43.22 and Adjustment disorder with depressed mood F43.21 [facility] WALK IN [place] [id number] [place] [address] Aug, Pharyngitis due to other organism J02.8 [facility] WALK IN [place] [id number] [place] [address] 10 Aug, 2017 Sore throat J02.9 and Acute nasopharyngitis (common cold) J00 [facility] WALK IN [facility] [id number] [place] [address]299[address] Mar, Acute nasopharyngitis J00 [place] [address] [address] 07 Mar, 2017 Adjustment disorder with anxiety F43.22 ; Adjustment disorder with depressed mood F43.21 and Bipolar 1 disorder, manic, mild F31.11 [place] [address] [address] Mar, [facility] [address] [address] Nov, 39 weeks gestation of Z3A.39 [facility] [address] [address] Nov, care in third trimester Z34.93 [facility] [address] [address] Oct, Normal in third trimester Z34.93 [facility] [address] [address] Oct, [facility] [address] [place] [address] 60[address]- 0519 Oct, Third trimester at less than 36 weeks Z33.1 [facility] [address] [place] [address] 75492- 6703 Oct, [facility] [address] [place] [id number] [place] [address] [id number] Oct, [facility] [address] [place] [address] 68584- 0421 Oct, Normal in third trimester Z34.93 [facility] [address] [place] [address] 55515- 0636 Sep, Normal in third trimester Z34.93 [facility] [address] [place] [address] 66639- 7040 Sep, Third trimester at less than 36 weeks Z33.1 and Encounter for immunization Z23 [facility] [address] [place] [address] 65660- 0[address] 23 Aug, 2016 Adjustment disorder with anxiety F43.22 and Adjustment disorder with depressed mood F43.21 [facility] [address] [address] 16 Aug, 2016 Abnormal glucose tolerance test in O99.810 [facility] [address] [address] Aug, [place] [id number] [place] [address] 32854- 2641 Aug, Normal in second trimester Z34.92 [facility] [address] [place] [address]28 [address] Aug, Acute upper respiratory infection, unspecified J06.9 and Other viral agents as the cause of diseases classified elsewhere B97.89 [place] [address] [id number] [place] [address] 78391- 2048 Jul, Adjustment disorder with depressed mood F43.21 and Bipolar 1 disorder, manic, mild F31.11 [place] [id number] [place] [address] 38824- 6369 Jul, Bipolar 1 disorder, manic, mild F31.11 ; Adjustment disorder with anxiety F43.22 and Adjustment disorder with depressed mood F43.21 [place] [id number] [place] [address] 51131- 0759 Jul, Normal in second trimester Z34.92 [place] [id number] [place] [address] 8[address]30 [address]377 Jul, Contact dermatitis, unspecified contact dermatitis type, unspecified trigger L25.9 [place] [id number] [place] [address] 44793- 7736 Jul, Adjustment disorder with depressed mood F43.21 ; Adjustment disorder with anxiety F43.22 and Bipolar 1 disorder, manic, mild F31.11 [place] [address] [place] [address] 16186- 1749 Jul, Adjustment disorder with depressed mood F43.21 and Bipolar 1 disorder, manic, mild F31.11 [place] [address] [place] [address] 93496- 5649 Jun, Adjustment disorder with depressed mood F43.21 and Bipolar 1 disorder, manic, mild F31.11 [place] [address] [address] 19 Jun, 2016 Adjustment disorder with depressed mood F43.21 ; Bipolar 1 disorder, manic, mild F31.11 and Anxiety, generalized F41.1 [place] [address] [address]- 279[address] 19 Jun, 2016 Normal in second trimester Z34.92 ; 18 weeks gestation of Z3A.18 and Encounter for immunization Z23 [place] [address] [id number] [place] [address] 31691- 5169 07 Jun, 2016 Normal in first trimester Z34.91 [place] [id number] [place] [address] 25768- 1576 24 May, 2016 care in second trimester Z34.92 [place] [address] [id number] [place] [address] 52570- 2136 May, [place] [address] [address] [id number] [place] [address] 29823- 1002 May, [place] [id number] [place] [address] 26134- 2872 15 May, 2016 Major depressive disorder, recurrent, moderate F33.1 [place] [id number] [place] [address] 03551- 3297 10 May, 2016 Normal in first trimester Z34.91 ; Pap smear for cervical cancer screening Z12.4 ; Screen for STD (sexually transmitted disease) Z11.3 and 12 weeks gestation of Z3A.12 [place] [address] [place] [address] 20772- 9178 08 May, 2016 12 weeks gestation of Z3A.12 ; Unspecified abdominal pain R10.9 and Other specified related conditions, unspecified trimester O26.899 [place] [address] [id number] [place] [address] 25216- 7077 Apr, [place] [address] [id number] [place] [address] 34769- 1618 Apr, [place] [id number] [place] [address] 64491- 9647 February, [place] [id number] [place] [address] 05164- 1543 February, Bipolar 1 disorder, manic, mild F31.11 and Adjustment disorder with depressed mood F43.21 [place] [id number] [place] [address] 87925- 5276 Dec, Major depressive disorder, single episode, moderate F32.1 ; Adjustment disorder with depressed mood F43.21 and Bipolar 1 disorder, manic, mild F31.11 [place] [id number] [place] [address] 08200- 9583 Dec, Adjustment disorder with depressed mood F43.21 ; Major depressive disorder, single episode, moderate F32.1 and Bipolar 1 disorder, manic, mild F31.11 [place] [address] [place] [address] 79506- 7237 Dec, Right hand pain M79.641 [place] [address] [id number] [place] [address] 78088- 2374 Dec, Major depressive disorder, single episode, moderate F32.1 and Adjustment disorder with depressed mood F43.21 [place] [address] [place] [address] 78077- 3821 Nov, Major depressive disorder, single episode, moderate F32.1 [place] [address] [place] [address] 27626- 6147 Nov, Adjustment disorder with depressed mood F43.21 ; Bipolar 1 disorder, manic, mild F31.11 and Adjustment disorder with anxiety F43.22 [place] [address] [place] [address] 75443- 1420 Oct, [place] [address] [id number] [place] [address] 25384- 1672 Oct, Encounter for counseling regarding contraception Z30.9 ; Initiation of OCP (BCP) Z30.011 ; Routine screening for STI (sexually transmitted infection) Z11.3 and Dysmenorrhea N94.6 [place] [address] [id number] [place] [address] 016427- 9092 Sep, Acute upper respiratory infection, unspecified J06.9 ; Other viral agents as the cause of diseases classified elsewhere B97.89 and Post -nasal drip R09.82 [place] [id number] [place] [address] 95787- 1507 Aug, Depressive disorder, not elsewhere classified [address] 077132- 6538 Jul, Depression, major, recurrent, moderate F33.[address] [address]- 1274 Jun, Major depressive disorder, recurrent episode, moderate 296.32 [place] [id number] [place] [address] 40792- 1135 04 Mar, 2015 Major depression, recurrent 296.30 [place] [id number] [place] [address] 90057- 7547 14 Jan, 2015 [place] [id number] [place] [address] 49247- 3954 Jan, [place] [id number] [place] [address] 19890- 4282 Dec, [place] [id number] [place] [address] 14343- 6467 Dec, [address] 774403- 0501 Nov, [place] [id number] [place] [address] 937317- 0614 Nov, [place] [id number] [place] [address] 687273- 0536 Oct, [facility] [place] [facility] [address] [id number] [place] [address]- 2120 Oct, [facility] [place] [facility] [address] [id number] [place] [address]- 2224 Sep, [facility] [place] [facility] [address] [id number] [place] 2396 Sep, [facility] [place] [facility] [address] [id number] [place] [address]- 7812 Sep, [facility] [place] [facility] [address] [id number] [place] [address]- 5694 Sep, [facility] [place] [facility] [address] [id number] [place] 1424 Sep, [facility] [place] [facility] [address] [id number] [place] [address]- 2799 Sep, [facility] [place] [facility] [address] [id number] [place] [address]- 7406 Aug, [facility] [place] [facility] [address] [id number] [place] [address]- 2568 Aug, [facility] [place] [facility] [address] [id number] [place] [address]- 7858 Aug, [facility] [place] [facility] [address] [id number] [place] [address]- 6545 Aug, [facility] [place] [facility] [address] [id number] [place] [address]- 2440 Jul, [facility] [place] [facility] [address] [id number] [place] [address]- 0693 Jul, [facility] [place] [facility] [address] [id number] [place] [address]- 0605 Jul, [facility] [place] [facility] [address] [id number] [place] [address]- 9216 Jul, [facility] [place] [facility] [address] [id number] [place] [address]- 4362 17 Jun, 2014 [facility] [place] [facility] [address] [id number] [place] [address]- 7902 17 Jun, 2014 [facility] [place] [facility] [address] [id number] [place] [address]- 6276 Jun, [facility] [place] [facility] [address] [id number] [place] [address]- 9794 Jun, [facility] [place] [facility] [address] [id number] [place] [address]- 8912 Apr, [facility] [place] [facility] [address] [id number] [place] [address]- 9020 Apr, [facility] [place] [facility] [address] [id number] [place] [address]- 7434 Mar, [facility] [place] [facility] [address] [id number] [place] [address]- 0955 Mar, [facility] [place] [facility] [address] [id number] [place] [address]- 5097 Mar, [facility] [place] [facility] [address] [id number] [place] [address]- 1590 Mar, [facility] [place] [facility] [address] [id number] [place] [address]- 9735 February, [facility] [place] [facility] [address] [id number] [place] [address]- 3558 February, [facility] [place] [facility] [address] [id number] [place] [address]- 7079 February, [facility] [place] [facility] [address] [id number] [place] [address]- 2649 February, [facility] [place] [facility] [address] [id number] [place] [address]- 3374 February, [facility] [place] [facility] [address] [id number] [place] [address]- 8188 February, [facility] [place] [facility] [address] [id number] [place] [address]- 1595 February, [facility] [place] [facility] [address] [id number] [place] [address]- 4837 Jan, [facility] [place] [facility] [address] [id number] [place] [address]- 2226 Jan, [facility] [place] [facility] [address] [id number] [place] [address]- 5243 Jan, [facility] [place] [facility] [address] [id number] [place] [address]- 0402 Jan, [facility] [place] [facility] [address] [id number] [place] [address]- 2834 Jan, [facility] [place] [facility] [address] [id number] [place] [address]- 8653 Jan, [facility] [place] [facility] [address] [id number] [place] [address]- 0285 Jan, [facility] [place] [facility] [address] [id number] [place] [address]- 6602 Jan, [facility] [place] [facility] [address] [id number] [place] [address]- 9261 Oct, [facility] [place] [facility] [address] [id number] [place] [address]- 2763 Oct, [facility] [place] [facility] [address] [id number] [place] [address]- 3997 Sep, [facility] [place] [facility] [address] [id number] [place] [address]- 5597 Sep, [facility] [place] [facility] [address] [id number] [place] [address]- 0118 Jun, [facility] [place] [facility] [address] [id number] [place] [address]- 0293 Jun, [facility] [place] [facility] [address] [id number] [place] [address]- 3711 Oct, [facility] [place] [facility] [address] [id number] [place] [address]- 4706 Sep, [facility] [place] [facility] [address] [id number] [place]- 0886 Sep, [facility] [place] [facility] [address] [id number] [place] [address]- 4416 26 Jun, 2012 [facility] [place] [facility] [address] [id number] [place] [address]- 8793 25 Jun, 2012 [facility] [place] [facility] [address] [id number] [place] [address]- 9839 24 Jun, 2012 [facility] [place] [facility] [address] [id number] [place] [address]- 8418 20 Jun, 2012 [facility] [place] [facility] [address] [id number] [place] [address]- 5784 Jun, [facility] [place] [facility] [address] [id number] [place] [address]- 0556 05 Jun, 2012 [facility] [place] [facility] [address] [id number] [place] [address]- 5406 Apr, [facility] [place] [facility] [address] [id number] [place] [address]- 1344 Mar, [facility] [place] [facility] [address] [id number] [address]- 6086 Mar, [facility] [place] [facility] [address] [id number] [place] [address]- 0978 16 Dec, 2011 [facility] [place] [facility] [address] [id number] [place] [address]- 7840 Oct, [facility] [place] [facility] [address] [facility] [id number] [place] [address]- 6559 15 Aug, 2011 [facility] [place] [facility] [address] [id number] [place] [address]- 1836 Aug, [facility] [place] [facility] [address] [address]- 6807 Aug, [facility] [id number] [address]- 6709 Aug, [facility] [address] [address]- 1858 Aug, [facility] [id number] 9135 Jul, [facility] [address] [address]- 5290 Jul, [facility] [id number] [place] [address] 62431- 3136 Jun, [facility] [id number] [place] [address] 89347- 3198 Jul, [facility] [id number] [place] [address] 71342- 9561 Aug, [facility] [address] [address]- 9900 Aug, [facility] [id number] 3239 Oct, IMMUNIZATIONS No Known Immunizations SOCIAL HISTORY Never Assessed REASON FOR VISIT Fever, fluid in rt ear, nausea and sore throat.--ELIZABETH Guthrie PLAN OF CARE Activity Details Follow Up prn Reason: VITAL SIGNS Height 63.75 in 2018-06-18 Weight 125 lbs 2018-06-18 Temperature 98.3 degrees Fahrenheit 2018-06-18 Heart Rate 76 bpm 2018-06-18 Respiratory Rate 18 2018-06-18 BMI 21.62 kg/m2 2018-06-18 Blood pressure systolic 102 mmHg 2018-06-18 Blood pressure diastolic 60 mmHg 2018-06-18 MEDICATIONS Medication Instructions Dosage Frequency Start Date End Date Duration Status Abilify 2 MG Orally Once a day 1 tablet 24h Active BusPIRone HCl 10 mg Orally Twice a day if needed 1 tablet Mar, Active RESULTS No Results PROCEDURES No Known [...]
--- OUTSIDE RECORDS SUMMARY | 2018-08-05 13:56 | XMS REPORT ---
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 Role Phone CANDICE GUERRERO Unavailable Unavailable PROBLEMS Type Condition ICD9-CM Code [id number] Code Onset Dates Condition Status SNOMED Code Problem Bipolar 1 disorder, manic, mild F31.11 Active 26458232 Problem Adjustment disorder with depressed mood F43.21 Active 856263391 Problem Seasonal allergies J30.2 Active 918316201 Problem Anxiety F41.9 Active 99221118 Problem Normal in second trimester Z34.92 Active 47487493 Problem Normal in first trimester Z34.91 Active 58073978 Problem Mood disorder F39 Active 30335268 Problem Adjustment disorder with anxiety F43.22 Active 44451424 ALLERGIES No Information ENCOUNTERS Encounter Location Date Diagnosis [facility] [address] [address] Jul, Hand pain, right M79.641 [facility] [address] [address] May, Allergic rhinitis, unspecified seasonality, unspecified trigger J30.9 [facility] [id number] [place] [address] 68902- 7172 May, [facility] [address] [address] Apr, Mood disorder F39 [facility] [address] [address]- [address] Apr, Syncope, unspecified syncope type R55 and Dizziness R42 [facility] [address] [address] Mar, Adjustment disorder with depressed mood F43.21 and Anxiety F41.9 [facility] [id number] [place] [address]31 February, Seasonal allergies J30.2 [facility] [id number] [place] [address] 49589- 4200 February, [facility] [id number] [place] [address] 20764 -6557 Dec, Seasonal allergic rhinitis, unspecified trigger J30.2 and Sore throat J02.9 [facility] [id number] [place] [address] 29226- 4838 Oct, Mood disorder F39 [place] [address] [address] Oct, Mood disorder F39 [place] [id number] [place] [address] 68411- 0505 Sep, Adjustment disorder with depressed mood F43.21 ; Screening cholesterol level Z13.220 and Screening for diabetes mellitus Z13.1 [facility] [id number] [place] [address] 93076- 6573 Sep, Adjustment disorder with anxiety F43.22 and Adjustment disorder with depressed mood F43.21 [facility] [id number] [place] [address] 70764 -8363 22 Aug, 2017 Pharyngitis due to other organism J02.8 [facility] [id number] [place] [address] 65223 -8797 10 Aug, 2017 Sore throat J02.9 and Acute nasopharyngitis (common cold) J00 [facility] [id number] [place] [address] 10963 -4708 19 Mar, 2017 Acute nasopharyngitis J00 [facility] [id number] [place] [address] 15366- 6382 07 Mar, 2017 Adjustment disorder with anxiety F43.22 ; Adjustment disorder with depressed mood F43.21 and Bipolar 1 disorder, manic, mild F31.11 [facility] [id number] [place] [address] 67304- 5979 Mar, [facility] [id number] [place] [address] 67634- 3110 08 Nov, 2016 39 weeks gestation of Z3A.39 [facility] [id number] [place] [address] 46082- 6684 Nov, care in third trimester Z34.93 [facility] [id number] [place] [address] 07770- 7992 Oct, Normal in third trimester Z34.93 [facility] [id number] [place] [address] 31607- 4548 Oct, [facility] [id number] [place] [address] 68189- 7695 Oct, Third trimester at less than 36 weeks Z33.1 [facility] [id number] [place] [address] 81741- 3428 Oct, [facility] [id number] [place] [address] [id number] Oct, [facility] [id number] [place] [address] 81033- 0978 Oct, Normal in third trimester Z34.93 [facility] [id number] [place] [address] 96664- 9774 Sep, Normal in third trimester Z34.93 [facility] [id number] [place] [address] 19942- 7286 Sep, Third trimester at less than 36 weeks Z33.1 and Encounter for immunization Z23 [facility] [id number] [place] [address] 29572- 3879 Aug, Adjustment disorder with anxiety F43.22 and Adjustment disorder with depressed mood F43.21 [facility] [id number] [place] [address] 52035- 3957 Aug, Abnormal glucose tolerance test in O99.810 [facility] [address] [place] [address] 34981- 6348 Aug, [facility] [id number] [place] [address] 44988- 3840 Aug, Normal in second trimester Z34.92 [facility] [id number] [place] [address] 87381 -1672 Aug, Acute upper respiratory infection, unspecified J06.9 and Other viral agents as the cause of diseases classified elsewhere B97.89 [place] [id number] [place] [address] 67809- 1323 Jul, Adjustment disorder with depressed mood F43.21 and Bipolar 1 disorder, manic, mild F31.11 [place] [id number] [place] [address] 89317- 0139 Jul, Bipolar 1 disorder, manic, mild F31.11 ; Adjustment disorder with anxiety F43.22 and Adjustment disorder with depressed mood F43.21 [place] [id number] [place] [address] 20836- 7092 Jul, Normal in second trimester Z34.92 [facility] [address] [place] [address] 44507 -1149 Jul, Contact dermatitis, unspecified contact dermatitis type, unspecified trigger L25.9 [place] [address] [place] [address] 59099- 0307 Jul, Adjustment disorder with depressed mood F43.21 ; Adjustment disorder with anxiety F43.22 and Bipolar 1 disorder, manic, mild F31.11 [place] [id number] [place] [address] 07663- 2399 Jul, Adjustment disorder with depressed mood F43.21 and Bipolar 1 disorder, manic, mild F31.11 [place] [id number] [place] [address] 70564- 2647 Jun, Adjustment disorder with depressed mood F43.21 and Bipolar 1 disorder, manic, mild F31.11 [place] [address] 46129- 0186 Jun, Adjustment disorder with depressed mood F43.21 ; Bipolar 1 disorder, manic, mild F31.11 and Anxiety, generalized F41.[address] [address]- [address]70 Jun, Normal in second trimester Z34.92 ; 18 weeks gestation of Z3A.18 and Encounter for immunization Z23 [place] [address] 01187- 3012 07 Jun, 2016 Normal in first trimester Z34.91 [place] [address] 23415- 4909 24 May, 2016 care in second trimester Z34.92 [place] [address] 42771- 0916 May, [place] [address] 32601- 6239 May, [place] [address] 22813- 6422 15 May, 2016 Major depressive disorder, recurrent, moderate F33.[address] 84715- 9298 10 May, 2016 Normal in first trimester Z34.91 ; Pap smear for cervical cancer screening Z12.4 ; Screen for STD (sexually transmitted disease) Z11.3 and 12 weeks gestation of Z3A.[address] 56475- 6391 08 May, 2016 12 weeks gestation of Z3A.12 ; Unspecified abdominal pain R10.9 and Other specified related conditions, unspecified trimester O26.[address] 70283- 3344 Apr, [facility] [address] [address] Apr, [facility] [id number] [place] [address] 91858- 4204 February, [facility] [address] [place] [address] 48415- 9363 February, Bipolar 1 disorder, manic, mild F31.11 and Adjustment disorder with depressed mood F43.21 [place] [id number] [place] [address] 75578- 6407 Dec, Major depressive disorder, single episode, moderate F32.1 ; Adjustment disorder with depressed mood F43.21 and Bipolar 1 disorder, manic, mild F31.11 [place] [address] [place] [address] 53254- 4668 Dec, Adjustment disorder with depressed mood F43.21 ; Major depressive disorder, single episode, moderate F32.1 and Bipolar 1 disorder, manic, mild F31.11 [place] [address] [place] [address] 23922- 6816 Dec, Right hand pain M79.641 [place] [address] [place] [address] 91524- 5445 Dec, Major depressive disorder, single episode, moderate F32.1 and Adjustment disorder with depressed mood F43.21 [facility] [address] [place] [address] 77595- 3105 Nov, Major depressive disorder, single episode, moderate F32.1 [place] [address] [place] [address] 24844- 3466 Nov, Adjustment disorder with depressed mood F43.21 ; Bipolar 1 disorder, manic, mild F31.11 and Adjustment disorder with anxiety F43.22 [facility] [address] [place] [address] 19433- 4583 Oct, [place] [address] [address]- 2104 13 Oct, 2015 Encounter for counseling regarding contraception Z30.9 ; Initiation of OCP (BCP) Z30.011 ; Routine screening for STI (sexually transmitted infection) Z11.3 and Dysmenorrhea N94.6 [place] [id number] [place] [address] 95990- 2563 02 Sep, 2015 Acute upper respiratory infection, unspecified J06.9 ; Other viral agents as the cause of diseases classified elsewhere B97.89 and Post -nasal drip R09.82 [place] [id number] [place] [address] 53257- 1355 Aug, Depressive disorder, not elsewhere classified 311 [place] [id number] [place] [address] 09025- 9656 Jul, Depression, major, recurrent, moderate F33.1 [place] [id number] [place] [address] 87130- 5928 Jun, Major depressive disorder, recurrent episode, moderate 296.32 [place] [id number] [place] [address] 27778- 3721 04 Mar, 2015 Major depression, recurrent 296.30 [place] [id number] [place] [address] 65681- 1412 14 Jan, 2015 [place] [id number] [place] [address] 77471- 9624 Jan, [place] [id number] [place] [address] 77444- 7556 Dec, [place] [id number] [place] [address] 63558- 8633 Dec, [place] [id number] [place] [address] 97318- 2759 Nov, [place] [id number] [place] [address] 34735- 4129 Nov, [facility] [place] [facility] [address] [id number] [place] [address]- 2448 Oct, [facility] [place] [facility] [address] [id number] [place] [address]- 4119 Oct, [facility] [place] [facility] [address] [id number] [place] [address]- 7337 Sep, [facility] [place] [facility] [address] [id number] [place] [address]- 4325 Sep, [facility] [place] [facility] [address] [id number] [place] [address]- 9226 Sep, [facility] [place] [facility] [address] [id number] [place] [address]- 4524 Sep, [facility] [place] [facility] [address] [id number] [place] [address]- 8352 Sep, [facility] [place] [facility] [address] [id number] [place] [address]- 7781 Sep, [facility] [place] [facility] [address] [id number] [place] [address]- 6162 Aug, [facility] [place] [facility] [address] [id number] [place] [address]- 5160 Aug, [facility] [place] [facility] [address] [id number] [place] [address]- 1257 Aug, [facility] [place] [facility] [address] [id number] [place] [address]- 2190 Aug, [facility] [place] [facility] [address] [id number] [place] [address]- 0845 Jul, [facility] [place] [facility] [address] [id number] [place] [address]- 3076 Jul, [facility] [place] [facility] [address] [id number] [place] [address]- 8388 Jul, [facility] [place] [facility] [address] [id number] [place] [address]- 9217 Jul, [facility] [place] [facility] [address] [id number] [place] 480[address] Jun, [facility] [place] [facility] [address] [id number] [place] [address]- 3056 Jun, [facility] [place] [facility] [address] [id number] [place] [address]- 8546 Jun, [facility] [place] [facility] [address] [id number] [place] [address]- 1618 Jun, [facility] [place] [facility] [address] [id number] [place]183 Apr, [facility] [place] [facility] [address] [id number] [place] [address]- 7787 Apr, [facility] [place] [facility] [address] [id number] [place] 2276 Mar, [facility] [place] [facility] [address] [id number] [place] [address]- 1840 Mar, [facility] [place] [facility] [address] [id number] [place] [address]- 0378 Mar, [facility] [place] [facility] [address] [id number] [place] [address]- 4073 Mar, [facility] [place] [facility] [address] [id number] [place] [address]- 9081 February, [facility] [place] [facility] [address] [id number] [place] [address]- 2033 February, [facility] [place] [facility] [address] [id number] [place] 3372 February, [facility] [place] [facility] [address] [id number] [place] [address]- 3809 February, [facility] [place] [facility] [address] [id number] [place] [address]- 5644 February, [facility] [place] [facility] [address] [id number] [place] [address]- 5508 February, [facility] [address] [id number] [place] [address]- 5849 February, [facility] [address] [id number] [place] [address]- 1717 Jan, [facility] [address] [id number] [place] [address]- 0868 Jan, [facility] [address] [id number] [place] [address]- 8878 Jan, [facility] [address] [id number] [place] [address]- 1301 Jan, [facility] [address] [id number] [place] [address]- 7222 Jan, [facility] [address] [id number] [place] [address]- 4345 Jan, [facility] [address] [id number] [place] [address]- 8073 Jan, [facility] [address] [id number] [place] [address]- 5559 Jan, [facility] [address] [id number] [place] [address]- 3898 Oct, [facility] [address] [id number] [place] [address]- 9856 Oct, [facility] [address] [id number] [place] [address]- 8513 Sep, [facility] [place] [facility] [address] [id number] [place] [address]- 0036 Sep, [facility] [place] [facility] [address] [id number] [place] [address]- 5240 Jun, [facility] [address] [id number] [place] [address]- 6834 Jun, [facility] [place] [facility] [address] [id number] [place] [address]- 4157 Oct, [facility] [place] [facility] [address] [id number] [place] [address]- 2655 Sep, [facility] [place] [facility] [address] [id number] [place] [address]- 7476 Sep, [facility] [place] [facility] [address] [id number] [place] [address]- 0817 Jun, [facility] [place] [facility] [address] [id number] [place] [address]- 1236 25 Jun, 2012 [facility] [place] [facility] [address] [id number] [place] [address]- 8103 24 Jun, 2012 [facility] [place] [facility] [address] [id number] [place] [address]- 9448 Jun, [facility] [place] [facility] [address] [id number] [place] [address]- 2680 Jun, [facility] [place] [facility] [address] [id number] [place] [address]- 7521 05 Jun, 2012 [facility] [place] [facility] [address] [id number] [address]- 6764 Apr, [facility] [place] [facility] [address] [id number] [place] [address]- 0270 Mar, [facility] [place] [facility] [address] [id number], [place] [address]- 9236 Mar, [facility] [place] [facility] [address] [id number] [place] [address]- 1182 Dec, [facility] [place] [facility] [address] [id number], [place] [address]- 3275 Oct, [facility] [place] [facility] [address] [id number], [place] [address]- 4898 Aug, [facility] [place] [facility] [address] [id number], [place] [address]- 0631 Aug, [facility] [id number] [address]- 8992 Aug, [facility] [address] [address]- 0187 Aug, [facility] [address], [place] [address]- 4962 Aug, [facility] [address] [address]- 3068 Jul, [facility] [address] [address]- 4956 Jul, [facility] [address] [address]- 2209 Jun, [facility] [address] [address]- 6311 Jul, [facility] [address] [address]- 1912 Aug, [facility] [address] [address]- 2255 Aug, [facility] [id number] [address]- 5790 Oct, IMMUNIZATIONS No Known Immunizations SOCIAL HISTORY Never Assessed REASON FOR VISIT Xray (walk-in)--ELIZABETH Guthrie PLAN OF CARE VITAL SIGNS MEDICATIONS Unknown Medications RESULTS Name Result Date Reference Range Xray : Hand, Right 3 views (IN HOUSE) 2018-07-27 Xray : Wrist, Right 3 views (IN HOUSE) 2018-07-27 PROCEDURES Procedure Date Ordered Result Body Site X-RAY EXAM OF HAND Jul 27, 2018 X-RAY EXAM OF WRIST Jul 27, 2018 INSTRUCTIONS MEDICATIONS ADMINISTERED No Known Medications [...]
--- OUTSIDE RECORDS SUMMARY | 2018-08-05 13:56 | XMS REPORT ---
Author Author IVY SWIFT [facility] Address [address] [place] [address] Care Team Providers Care Acid Cleaner Name Role Phone IVY SWIFT Unavailable PROBLEMS Type Condition ICD9-CM Code MGN63-ZP Code Onset Dates Condition Status SNOMED Code Problem Bipolar 1 disorder, manic, mild F31.11 Active 03855190 Problem Adjustment disorder with depressed mood F43.21 Active 763553627 Problem Seasonal allergies J30.2 Active 568614697 Problem Anxiety F41.9 Active 51749364 Problem Normal in second trimester Z34.92 Active 05876288 Problem Normal in first trimester Z34.91 Active 46493559 Problem Mood disorder F39 Active 02051952 Problem Adjustment disorder with anxiety F43.22 Active [id number] ALLERGIES No Information ENCOUNTERS Encounter Location Date Diagnosis [facility] WALK IN [facility] [address] [address] May, Allergic rhinitis, unspecified seasonality, unspecified trigger J30.9 [facility] [address] [address] May, [facility] [address] [address] Apr, Mood disorder F39 [facility] [address] [address] Apr, Syncope, unspecified syncope type R55 and Dizziness R42 [facility] [address] [address] Mar, Adjustment disorder with depressed mood F43.21 and Anxiety F41.9 [facility] WALK IN [facility] [address] [address] February, Seasonal allergies J30.2 [place] [address] [place] [id number] [place] [address] February, [facility] WALK IN [facility] [address] [address] Dec, Seasonal allergic rhinitis, unspecified trigger J30.2 and Sore throat J02.9 [place] [address] [address] Oct, Mood disorder F39 [place] [address] [address] Oct, Mood disorder F39 [place] [address] [address] Sep, Adjustment disorder with depressed mood F43.21 ; Screening cholesterol level Z13.220 and Screening for diabetes mellitus Z13.1 [place] [address] [address] Sep, Adjustment disorder with anxiety F43.22 and Adjustment disorder with depressed mood F43.21 [facility] [place] [address] [id number] [place] [address] Aug, Pharyngitis due to other organism J02.8 [facility] W[facility] [place] [address] [address] 10 Aug, 2017 Sore throat J02.9 and Acute nasopharyngitis (common cold) J00 [facility] WALK IN [facility] [address] [place] [id number] [place] [address] Mar, Acute nasopharyngitis J00 [place] [address] [address] 07 Mar, 2017 Adjustment disorder with anxiety F43.22 ; Adjustment disorder with depressed mood F43.21 and Bipolar 1 disorder, manic, mild F31.11 [place] [address] [place] [id number] [place] [address]674- 0639 Mar, [place] [address] [address] Nov, 39 weeks gestation of Z3A.39 [facility] [address] [place] [id number] [place] [address] 82137- 8843 Nov, care in third trimester Z34.93 [facility] [address] [address] Oct, Normal in third trimester Z34.93 [facility] [address] [address] Oct, [facility] [address] [place] [id number] [place] [address] 00756- 3354 Oct, Third trimester at less than 36 weeks Z33.1 [place] [address] [id number] [place] [address] 9[address]64- 8424 Oct, [facility] [address] [place] [id number] [place] [address] [id number] Oct, [facility] [id number] [place] [address] 95124- 8368 Oct, Normal in third trimester Z34.93 [facility] [address] [place] [address] 11817- 5973 Sep, Normal in third trimester Z34.93 [facility] [id number] [place] [address] 16163- 8389 07 Sep, 2016 Third trimester at less than 36 weeks Z33.1 and Encounter for immunization Z23 [facility] [address] [place] [address] 08532- 4487 23 Aug, 2016 Adjustment disorder with anxiety F43.22 and Adjustment disorder with depressed mood F43.21 [place] [address], [place] [address] 16 Aug, 2016 Abnormal glucose tolerance test in O99.810 [place] [address] [place] [id number] [address] Aug, [place] [address] [place] [id number] [place] [address] 06059- 8199 Aug, Normal in second trimester Z34.92 [facility] [address] [place] [address] 7[address]74 [address]165 Aug, Acute upper respiratory infection, unspecified J06.9 and Other viral agents as the cause of diseases classified elsewhere B97.89 [place] [address] [place] [id number] [place] [address] 54795- 3631 Jul, Adjustment disorder with depressed mood F43.21 and Bipolar 1 disorder, manic, mild F31.11 [place] [address] [place] [id number] [place] [address] 57828- 4410 Jul, Bipolar 1 disorder, manic, mild F31.11 ; Adjustment disorder with anxiety F43.22 and Adjustment disorder with depressed mood F43.21 [place] [address] [place] [id number] [place] [address] 0[address]65- 4215 Jul, Normal in second trimester Z34.92 [facility] [address] [place] [id number] [place] [address] Jul, Contact dermatitis, unspecified contact dermatitis type, unspecified trigger L25.9 [place] [address] [place] [id number] [place] [address] 15387- 8237 Jul, Adjustment disorder with depressed mood F43.21 ; Adjustment disorder with anxiety F43.22 and Bipolar 1 disorder, manic, mild F31.11 [place] [address] [place] [address] 04353- 8359 Jul, Adjustment disorder with depressed mood F43.21 and Bipolar 1 disorder, manic, mild F31.11 [place] [address] [place] [address] 69280- 3619 Jun, Adjustment disorder with depressed mood F43.21 and Bipolar 1 disorder, manic, mild F31.11 [place] [address], [place] [address] 19 Jun, 2016 Adjustment disorder with depressed mood F43.21 ; Bipolar 1 disorder, manic, mild F31.11 and Anxiety, generalized F41.1 [place] [address], [place] [address]- 8751 19 Jun, 2016 Normal in second trimester Z34.92 ; 18 weeks gestation of Z3A.18 and Encounter for immunization Z23 [place] [address] [place] [id number] [place] [address] 59560- 1198 07 Jun, 2016 Normal in first trimester Z34.91 [place] [address] [place] [id number] [place] [address] 63170- 3408 24 May, 2016 care in second trimester Z34.92 [place] [address] [place] [id number] [place] [address] 08674- 8051 16 May, 2016 [place] [address] [place] [id number] [place] [address] 53224- 0953 May, [place] [address] [place] [id number] [place] [address] 64666- 8530 15 May, 2016 Major depressive disorder, recurrent, moderate F33.1 [address] [place] [address] 17387- 7384 10 May, 2016 Normal in first trimester Z34.91 ; Pap smear for cervical cancer screening Z12.4 ; Screen for STD (sexually transmitted disease) Z11.3 and 12 weeks gestation of Z3A.12 [place] [address] [place] [address] 58148- 4948 08 May, 2016 12 weeks gestation of Z3A.12 ; Unspecified abdominal pain R10.9 and Other specified related conditions, unspecified trimester O26.899 [place] [address] [place] [address] 65987- 7557 Apr, [place] [address] [place] [id number] [place] [address] 63384- 6958 Apr, [place] [address] [place] [address] 65723- 7135 February, [place] [address] [place] [id number] [place] [address] 91422- 7885 February, Bipolar 1 disorder, manic, mild F31.11 and Adjustment disorder with depressed mood F43.21 [place] [address] [place] [id number] [place] [address] 91269- 2780 Dec, Major depressive disorder, single episode, moderate F32.1 ; Adjustment disorder with depressed mood F43.21 and Bipolar 1 disorder, manic, mild F31.11 [place] [address] [place] [id number] [place] [address] 26144- 5825 Dec, Adjustment disorder with depressed mood F43.21 ; Major depressive disorder, single episode, moderate F32.1 and Bipolar 1 disorder, manic, mild F31.11 [place] [address] [place] [id number] [place] [address] 35697- 8838 Dec, Right hand pain M79.641 [place] [address] [place] [id number] [place] [address] 50829- 9476 Dec, Major depressive disorder, single episode, moderate F32.1 and Adjustment disorder with depressed mood F43.21 [place] [address] [place] [address] 25491- 0678 Nov, Major depressive disorder, single episode, moderate F32.1 [place] [address] [place] [id number] [place] [address] 13509- 5787 Nov, Adjustment disorder with depressed mood F43.21 ; Bipolar 1 disorder, manic, mild F31.11 and Adjustment disorder with anxiety F43.22 [place] [address] [place] [address] 91648- 3481 Oct, [place] [address] [place] [id number] [place] [address] 37882- 6911 Oct, Encounter for counseling regarding contraception Z30.9 ; Initiation of OCP (BCP) Z30.011 ; Routine screening for STI (sexually transmitted infection) Z11.3 and Dysmenorrhea N94.6 [place] [address] [place] [id number] [place] [address] 51220- 9654 Sep, Acute upper respiratory infection, unspecified J06.9 ; Other viral agents as the cause of diseases classified elsewhere B97.89 and Post -nasal drip R09.82 [place] [address] [place] [id number] [place] [address] 76731- 8559 Aug, Depressive disorder, not elsewhere classified [address] [address]- 6884 Jul, Depression, major, recurrent, moderate F33.[address] [address]- 6775 Jun, Major depressive disorder, recurrent episode, moderate 296.[address] [address]- 7496 Mar, Major depression, recurrent 296.30 [place] [address] 25[address]- 3944 Jan, [place] [address] [place] [id number] [place] [address] 08392- 6424 Jan, [place] [address] [place] [id number] [place] [address] 50643- 3537 Dec, [place] [address] [place] [id number] [place] [address] 99817- 8616 Dec, [place] [address] 64[address]- 1456 Nov, [place] [address] 80092- 1385 Nov, [place] [address] [place] [id number] [place] [address] 94292- 0148 Oct, [facility] [place] [facility] [address] [id number] [place] [address]- 6611 Oct, [facility] [place] [facility] [address] [id number] [place] [address]- 8536 Sep, [facility] [place] [facility] [address] [id number] [place] [address]- 8108 Sep, [facility] [place] [facility] [address] [id number] [place] [address]- 9112 Sep, [facility] [place] [facility] [address] [id number] [place] [address]484 Sep, [facility] [place] [facility] [address] [id number] [place] [address]75 Sep, [facility] [place] [facility] [address] [id number] [place] 7311 Sep, [facility] [place] [facility] [address] [id number] [place] [address]- 0681 Aug, [facility] [place] [facility] [address] [id number] [place] [address]- 0277 Aug, [facility] [place] [facility] [address] [id number] [place] [address]- 0459 Aug, [facility] [place] [facility] [address] [id number] [place] [address]3 Aug, [facility] [place] [facility] [address] [id number] [place] [address]- 6434 Jul, [facility] [place] [facility] [address] [id number] [place] [address]- 0012 Jul, [facility] [place] [facility] [address] [id number] [place] [address]- 9907 Jul, [facility] [place] [facility] [address] [id number] [place] [address]- 9955 Jul, [facility] [place] [facility] [address] [id number] [place] [address]- 9341 Jun, [facility] [place] [facility] [address] [id number] [place] [address]- 9219 Jun, [facility] [place] [facility] [address] [id number] [place] [address]- 8770 Jun, [facility] [place] [facility] [address] [id number] [place] [address]- 9323 Jun, [facility] [place] [facility] [address] [id number] [place] [address]- 1902 Apr, [facility] [place] [facility] [address] [id number] [place] [address]- 7238 Apr, [facility] [place] [facility] [address] [id number] [place] [address]- 8857 Mar, [facility] [place] [facility] [address] [id number] [place] [address]- 1936 Mar, [facility] [place] [facility] [address] [id number] [place] [address]- 6658 Mar, [facility] [place] [facility] [address] [id number] [place] [address]- 6266 Mar, [facility] [place] [facility] [address] [id number] [place] [address]- 6959 February, [facility] [place] [facility] [address] [id number] [place] [address]- 3303 February, [facility] [place] [facility] [address] [id number], [place] [address]- 1219 February, [facility] [place] [facility] [address] [id number] [place] [address]- 1490 February, [facility] [place] [facility] [address] [id number] [place] [address]- 5344 February, [facility] [place] [facility] [address] [id number] [place] [address]- 1901 February, [facility] [place] [facility] [address] [id number] [place] [address]- 0984 February, [facility] [place] [facility] [address] [id number] [place] [address]- 2753 Jan, [facility] [place] [facility] [address] [id number] [place] [address]- 7647 Jan, [facility] [place] [facility] [address] [id number] [place] [address]- 9269 Jan, [facility] [place] [facility] [address] [id number] [place] [address]- 3646 Jan, [facility] [place] [facility] [address] [id number] [place] [address]- 1206 Jan, [facility] [place] [facility] [address] [id number] [place] [address]- 3318 Jan, [facility] [place] [facility] [address] [id number] [place] [address]- 6206 Jan, [facility] [place] [facility] [address] [id number] [place] [address]- 4981 Jan, [facility] [place] [facility] [address] [id number] [place] [address]- 0017 Oct, [facility] [place] [facility] [address] [id number] [place] [address]- 9962 Oct, [facility] [place] [facility] [address] [id number] [place] [address]- 6790 Sep, [facility] [place] [facility] [address] [id number] [place] [address]- 4295 Sep, [facility] [place] [facility] [address] [id number] [place] [address]- 1735 Jun, [facility] [place] [facility] [address] [id number] [place] [address]- 7241 04 Jun, 2013 [facility] [place] [facility] [address] [id number] [place] [address]- 6156 Oct, [facility] [place] [facility] [address] [id number] [place] [address]- 6827 Sep, [facility] [address] [id number] [place] [address]- 3732 Sep, [facility] [place] [facility] [address] [id number] [place] [address]- 3534 Jun, [facility] [place] [facility] [address] [id number] [place] [address], [place] [address]- 1835 25 Jun, 2012 [facility] [address] [id number] [place] [address]- 1047 24 Jun, 2012 [facility] [address] [id number] [place] [address]- 4937 20 Jun, 2012 [facility] [address] [id number] [place] [address]- 6143 Jun, [facility] [address] [id number] [place] [address]- 2120 05 Jun, 2012 [facility] [address] [id number] [place] [address]- 4113 Apr, [facility] [address] [id number] [place] [address]- 3782 Mar, [facility] [place] [facility] [address] [id number] [place] [address]- 7344 Mar, [facility] [address] [id number] [place] [address]- 3076 Dec, [facility] [place] [facility] [address] [id number] [place] [address]- 3436 Oct, [facility] [place] [facility] [address] [id number] [place] [address]- 6401 15 Aug, 2011 [facility] [place] [facility] [address] [id number] [place] [address]- 3276 10 Aug, 2011 [facility] [place] [facility] [address] [id number], [place] [address]- 9306 10 Aug, 2011 [facility] [address] [address]- 5169 Aug, [facility] [address] [address]- 3465 Aug, [facility] [address] [address]- 1709 Jul, [facility] [id number] [place] [address] 88957- 4691 Jul, [facility] [address] 6240 Jun, [facility] [id number] [place] [address] 797088- 6085 Jul, [facility] [address], [place] [address]- 3417 Aug, [facility] [address] [address]- 3720 Aug, [facility] [address] [id number] [address]- 2248 Oct, IMMUNIZATIONS No Known Immunizations SOCIAL HISTORY Never Assessed REASON FOR VISIT vomiting PLAN OF CARE VITAL SIGNS MEDICATIONS No [...]
--- OUTSIDE RECORDS SUMMARY | 2018-08-05 13:57 | XMS REPORT ---
Author Author SWIFTIVY Nunez Organization [facility] Address [address] [place] [address] Care Team Providers Care Carbide Operator Name Role Phone IVY SWIFT Unavailable PROBLEMS Type Condition ICD9-CM Code [id number] Code Onset Dates Condition Status SNOMED Code Problem Bipolar 1 disorder, manic, mild F31.11 Active 76213736 Problem Adjustment disorder with depressed mood F43.21 Active 340452294 Problem Seasonal allergies J30.2 Active 459460078 Problem Anxiety F41.9 Active 96915691 Problem Normal in second trimester Z34.92 Active 56151557 Problem Normal in first trimester Z34.91 Active 32518470 Problem Mood disorder F39 Active 30711789 Problem Adjustment disorder with anxiety F43.22 Active 16072231 ALLERGIES No Known Allergies ENCOUNTERS Encounter Location Date Diagnosis [place] [id number] [address] Jun, [facility] [address] [address] May, Allergic rhinitis, unspecified seasonality, unspecified trigger J30.9 [facility] [address] [place] [id number] [place] [address]888- 4195 May, [facility] [address] [address] Apr, Mood disorder F39 [facility] [address] [address] Apr, Syncope, unspecified syncope type R55 and Dizziness R42 [place] [address] [address] 14 Mar, 2018 Adjustment disorder with depressed mood F43.21 and Anxiety F41.9 [facility] [address] [address] February, Seasonal allergies J30.2 [facility] [address] [place] [id number] [place] [address]39- 8886 February, [facility] [address] [place] [id number] [place] [address] Dec, Seasonal allergic rhinitis, unspecified trigger J30.2 and Sore throat J02.9 [place] [address] [place] [id number] [place] [address]20- 0578 Oct, Mood disorder F39 [place] [address] [address] Oct, Mood disorder F39 [place] [address] [place] [id number] [place] [address] 62748- 6344 Sep, Adjustment disorder with depressed mood F43.21 ; Screening cholesterol level Z13.220 and Screening for diabetes mellitus Z13.1 [place] [address] [place] [id number] [place] [address] 27091- 7133 Sep, Adjustment disorder with anxiety F43.22 and Adjustment disorder with depressed mood F43.21 [facility] [place] [address] [place] [id number] [place] [address]7895 -2546 22 Aug, 2017 Pharyngitis due to other organism J02.8 [facility] [place] [address] [place] [id number] [place] [address] 96801 -5775 10 Aug, 2017 Sore throat J02.9 and Acute nasopharyngitis (common cold) J00 [facility] [place] [address] [place] [id number] [place] [address] 86803 -3623 19 Mar, 2017 Acute nasopharyngitis J00 [facility] [address] [place] [id number] [place] [address] 60005- 1786 07 Mar, 2017 Adjustment disorder with anxiety F43.22 ; Adjustment disorder with depressed mood F43.21 and Bipolar 1 disorder, manic, mild F31.11 [place] [address] [address] Mar, [facility] [id number] [place] [address] 427288- 5489 08 Nov, 2016 39 weeks gestation of Z3A.39 [facility] [address], [place] [address] Nov, care in third trimester Z34.93 [facility] [id number] [place] [address] 920305- 6339 Oct, Normal in third trimester Z34.93 [facility] [id number] [place] [address] 97647- 1446 Oct, [facility] [address] [place] [id number] [place] [address] 47105- 6022 Oct, Third trimester at less than 36 weeks Z33.1 [facility] [id number] [place] [address] 44770- 8979 Oct, [facility] [address] [place] [id number] [place] [address] [id number] Oct, [facility] [id number] [place] [address] 37825- 8462 Oct, Normal in third trimester Z34.93 [facility] [id number] [place] [address] 22874- 6485 Sep, Normal in third trimester Z34.93 [facility] [id number] [place] [address] 81390- 0069 Sep, Third trimester at less than 36 weeks Z33.1 and Encounter for immunization Z23 [facility] [address] [place] [id number] [place] [address] 99474- 9966 23 Aug, 2016 Adjustment disorder with anxiety F43.22 and Adjustment disorder with depressed mood F43.21 [facility] [address] [place] [address] 44270- 4237 Aug, Abnormal glucose tolerance test in O99.810 [place] [address] [place] [address] 98839- 9237 Aug, [place] [address] [place] [id number] [place] [address] 27957- 6605 Aug, Normal in second trimester Z34.92 [facility] [address] [place] [id number] [place] [address] 18489 -2946 Aug, Acute upper respiratory infection, unspecified J06.9 and Other viral agents as the cause of diseases classified elsewhere B97.89 [place] [address] [place] [id number] [place] [address] 38758- 0346 Jul, Adjustment disorder with depressed mood F43.21 and Bipolar 1 disorder, manic, mild F31.11 [place] [address] [place] [id number] [place] [address] 86975- 5090 Jul, Bipolar 1 disorder, manic, mild F31.11 ; Adjustment disorder with anxiety F43.22 and Adjustment disorder with depressed mood F43.21 [place] [address] [place] [id number] [place] [address] 47121- 0114 Jul, Normal in second trimester Z34.92 [facility] [address] [place] [address] 37335 -5586 Jul, Contact dermatitis, unspecified contact dermatitis type, unspecified trigger L25.9 [place] [address] [place] [id number] [place] [address] 24337- 4792 Jul, Adjustment disorder with depressed mood F43.21 ; Adjustment disorder with anxiety F43.22 and Bipolar 1 disorder, manic, mild F31.11 [place] [address] [place] [id number] [place] [address] 93088- 4145 Jul, Adjustment disorder with depressed mood F43.21 and Bipolar 1 disorder, manic, mild F31.11 [place] [address] [place] [id number] [place] [address] 21789- 8120 Jun, Adjustment disorder with depressed mood F43.21 and Bipolar 1 disorder, manic, mild F31.11 [place] [address] [place] [id number] [place] [address] 07711- 0896 19 Jun, 2016 Adjustment disorder with depressed mood F43.21 ; Bipolar 1 disorder, manic, mild F31.11 and Anxiety, generalized F41.1 [place] [address] 37948- 1713 Jun, Normal in second trimester Z34.92 ; 18 weeks gestation of Z3A.18 and Encounter for immunization Z23 [place] [address] 58748- 4310 07 Jun, 2016 Normal in first trimester Z34.91 [place] [address] 63039- 2885 May, care in second trimester Z34.92 [place] [address] 54118- 4134 May, [place] [address] 65156- 3281 May, [place] [address] 63386- 9974 May, Major depressive disorder, recurrent, moderate F33.1 [place] [address] 19912- 0285 10 May, 2016 Normal in first trimester Z34.91 ; Pap smear for cervical cancer screening Z12.4 ; Screen for STD (sexually transmitted disease) Z11.3 and 12 weeks gestation of Z3A.12 [place] [address] 74010- 0848 08 May, 2016 12 weeks gestation of Z3A.12 ; Unspecified abdominal pain R10.9 and Other specified related conditions, unspecified trimester O26.899 [place] [address] 78360- 2904 Apr, [facility] [address] [address]- 4[address] Apr, [facility] [address] [place] [id number] [place] [address] 00657- 7879 February, [facility] [address] [place] [id number] [place] [address] 31862- 0728 February, Bipolar 1 disorder, manic, mild F31.11 and Adjustment disorder with depressed mood F43.21 [place] [address] [place] [address] 22301- 5663 Dec, Major depressive disorder, single episode, moderate F32.1 ; Adjustment disorder with depressed mood F43.21 and Bipolar 1 disorder, manic, mild F31.11 [place] [address] [place] [id number] [place] [address] 31310- 5402 Dec, Adjustment disorder with depressed mood F43.21 ; Major depressive disorder, single episode, moderate F32.1 and Bipolar 1 disorder, manic, mild F31.11 [place] [address] [place] [address] 90826- 3988 Dec, Right hand pain M79.641 [place] [address] [place] [address] 19587- 3962 Dec, Major depressive disorder, single episode, moderate F32.1 and Adjustment disorder with depressed mood F43.21 [place] [address] [place] [address] 97223- 0490 Nov, Major depressive disorder, single episode, moderate F32.1 [place] [address] [place] [address] 00082- 1678 Nov, Adjustment disorder with depressed mood F43.21 ; Bipolar 1 disorder, manic, mild F31.11 and Adjustment disorder with anxiety F43.22 [facility] [address] [place] [address] 77856- 7918 Oct, [place] [address] [place] [id number] [address] 477[address] 13 Oct, 2015 Encounter for counseling regarding contraception Z30.9 ; Initiation of OCP (BCP) Z30.011 ; Routine screening for STI (sexually transmitted infection) Z11.3 and Dysmenorrhea N94.6 [place] [address] [place] [id number] [place] [address] 49148- 8462 02 Sep, 2015 Acute upper respiratory infection, unspecified J06.9 ; Other viral agents as the cause of diseases classified elsewhere B97.89 and Post -nasal drip R09.82 [place] [address] [place] [id number] [place] [address] 66467- 4910 Aug, Depressive disorder, not elsewhere classified 311 [place] [address] [place] [id number] [place] [address] 60105- 6436 Jul, Depression, major, recurrent, moderate F33.1 [place] [id number] [place] [address] 19683- 4530 Jun, Major depressive disorder, recurrent episode, moderate 296.32 [place] [address] [place] [id number] [place] [address] 34875- 5205 04 Mar, 2015 Major depression, recurrent 296.30 [place] [address] [place] [id number] [place] [address] 09335- 0598 14 Jan, 2015 [place] [address] [place] [id number] [place] [address] 55075- 7799 Jan, [place] [address] [place] [id number] [place] [address] 07373- 8560 Dec, [place] [address] [place] [id number] [place] [address] 78513- 1315 Dec, [place] [address] [place] [id number] [place] [address] 30449- 5510 Nov, [place] [address] [place] [id number] [place] [address] 31480- 2310 Nov, [facility] [place] [facility] [address] [id number] [place] [address]- 2598 Oct, [facility] [place] [facility] [address] [id number] [place] [address]- 3610 Oct, [facility] [place] [facility] [address] [id number] [place] [address] Sep, [facility] [place] [facility] [address] [id number] [place] 4[address] Sep, [facility] [place] [facility] [address] [id number] [place] [address]- 6674 Sep, [facility] [place] [facility] [address] [id number] [place] [address]- 4086 Sep, [facility] [place] [facility] [address] [id number] [place] [address]145 Sep, [facility] [place] [facility] [address] [id number] [place] [address]- 5294 Sep, [facility] [place] [facility] [address] [id number] [place] [address]- 4946 Aug, [facility] [place] [facility] [address] [id number] [place] [address]- 8460 Aug, [facility] [place] [facility] [address] [id number] [place] [address]- 4130 Aug, [facility] [place] [facility] [address] [id number] [place] [address]- 4377 Aug, [facility] [place] [facility] [address] [id number] [place] [address]- 9774 Jul, [facility] [place] [facility] [address] [id number] [place] [address]- 0751 Jul, [facility] [place] [facility] [address] [id number] [place] [address]- 9770 Jul, [facility] [place] [facility] [address] [id number] [place] [address]- 3655 Jul, [facility] [place] [facility] [address] [id number] [place] [address]- 6502 Jun, [facility] [place] [facility] [address] [id number] [place] [address]- 5726 Jun, [facility] [place] [facility] [address] [id number] [place] [address] 2546 Jun, [facility] [place] [facility] [address] [id number] [place] [address]- 4117 Jun, [facility] [place] [facility] [address] [id number] [place] [address]- 4770 Apr, [facility] [place] [facility] [address] [id number] [place] [address]- 5493 Apr, [facility] [place] [facility] [address] [id number] [place] [address]- 3863 Mar, [facility] [place] [facility] [address] [id number] [place] [address]- 5443 Mar, [facility] [place] [facility] [address] [id number] [place] [address]- 0103 Mar, [facility] [place] [facility] [address] [id number] [place] [address]- 5290 Mar, [facility] [place] [facility] [address] [id number] [address]- 1913 February, [facility] [place] [facility] [address] [id number], [place] [address]- 5772 February, [facility] [place] [facility] [address] [id number] [place] [address]- 0131 February, [facility] [place] [facility] [address] [id number] [place] [address]- 7006 February, [facility] [place] [facility] [address] [id number] [place] [address]- 4966 February, [facility] [place] [facility] [address] [id number] [place] [address]- 4914 February, [facility] [address] [id number] [place] [address]- 5232 February, [facility] [place] [facility] [address] [id number] [place] [address]- 4064 Jan, [facility] [place] [facility] [address] [id number] [place] [address]- 0662 Jan, [facility] [place] [facility] [address] [id number] [place] [address]- 9737 Jan, [facility] [place] [facility] [address] [id number] [place] [address]- 6795 Jan, [facility] [place] [facility] [address] [id number] [place] [address]- 7563 Jan, [facility] [address] [id number] [place] [address]- 4636 Jan, [facility] [address] [id number] [place] [address]- 7613 Jan, [facility] [place] [facility] [address] [id number] [place] [address]- 3569 Jan, [facility] [address] [id number] [place] [address]- 5790 Oct, [facility] [place] [facility] [address] [id number] [place] [address]- 5978 Oct, [facility] [place] [facility] [address] [id number] [place] [address]- 5046 Sep, [facility] [place] [facility] [address] [id number] [place] [address]- 3984 Sep, [facility] [place] [facility] [address] [id number] [place] [address]- 4936 Jun, [facility] [place] [facility] [address] [id number] [place] [address]- 5907 Jun, [facility] [place] [facility] [address] [id number] [place] [address]- 1904 Oct, [facility] [address] [id number] [place] [address]- 9521 Sep, [facility] [address] [id number] [place] 2145 Sep, [facility] [place] [facility] [address] [id number] [place] [address]- 1080 Jun, [facility] [address] [id number] [place] [address]- 0704 Jun, [facility] [address] [id number] [place] [address]- 6578 24 Jun, 2012 [facility] [address] [id number] [place] [address]- 6054 Jun, [facility] [address] [id number] [place] [address]- 3720 Jun, [facility] [address] [id number] [place] [address]- 2370 05 Jun, 2012 [facility] [address] [id number] [place] [address]- 2702 Apr, [facility] [address] [id number] [place] [address]- 6309 Mar, [facility] [place] [facility] [address] [id number] [place] [address]- 0096 Mar, [facility] [place] [facility] [address] [id number] [place] [address]- 1051 Dec, [facility] [place] [facility] [address] [id number] [place] [address]- 3077 Oct, [facility] [place] [facility] [address] [id number] [place] [address]- 7059 Aug, [facility] [place] [facility] [address] [id number], [place] [address]- 3390 Aug, [facility] [address] [place] [address]- 9952 Aug, [facility] [address] [facility] [id number], [place] [address]- 4027 Aug, [facility] [address] [place] [address]- 2745 Aug, [facility] [address] [place] [address]- 6101 Jul, [facility] [address] [place] [address]- 3878 Jul, [facility] [address], [place] [address]- 5263 Jun, [facility] [address] [place] [address]- 4777 Jul, [facility] [address] [place] [address]- 6896 Aug, [facility] [address] [place] [address]- 3736 Aug, [facility] [address], [place] [address]- 1116 Oct, IMMUNIZATIONS No Known Immunizations SOCIAL HISTORY Never Assessed REASON FOR VISIT Dizzy spells and feeling light headed since completion of 17 months ago, never had glucose check during , doesn't know if symptoms are related to blood sugar jack beltran PLAN OF CARE Activity Details Follow Up 3 Months, prn Reason:depending upon test results VITAL SIGNS Height 63.75 in 2018-04-24 Weight 122.7 lbs 2018-04-24 Temperature 99.5 degrees Fahrenheit 2018-04-24 Heart Rate 68 bpm 2018-04-24 Respiratory Rate 18 2018-04-24 BMI 21.22 kg/m2 2018-04-24 Blood pressure systolic 118 mmHg 2018-04-24 Blood pressure diastolic 64 mmHg 2018-04-24 MEDICATIONS Medication Instructions Dosage Frequency Start Date End Date Duration Status Abilify 2 MG Orally Once a day 1 tablet 24h 30 days Active BusPIRone HCl 10 mg Orally Twice a day if needed 1 tablet Mar, 30 days Active RESULTS No Results PROCEDURES [...]
--- OUTSIDE RECORDS SUMMARY | 2018-08-05 13:57 | XMS REPORT ---
Author Author SASHA OBDULIA Organization [facility] [place] Address [address] [place] [address] Care Team Providers Care Exercise Rider Name Role Phone AINSLEYOBDULIA LIPSCOMB Unavailable PROBLEMS Type Condition ICD9-CM Code ALR58-SG Code Onset Dates Condition Status SNOMED Code Problem Bipolar 1 disorder, manic, mild F31.11 Active 85766361 Problem Adjustment disorder with depressed mood F43.21 Active 881334529 Problem Seasonal allergies J30.2 Active 160375997 Problem Anxiety F41.9 Active 58450631 Problem Normal in second trimester Z34.92 Active 18188668 Problem Normal in first trimester Z34.91 Active 01244984 Problem Mood disorder F39 Active 08249843 Problem Adjustment disorder with anxiety F43.22 Active 49008169 ALLERGIES No Known Allergies ENCOUNTERS Encounter Location Date Diagnosis [facility] [place] [address] [address] Jun, [facility] [address] [address] May, Allergic rhinitis, unspecified seasonality, unspecified trigger J30.9 [facility] [place] [address] [address] May, [facility] [place] [address] [address] Apr, Mood disorder F39 [facility] [place] [address] [address] Apr, Syncope, unspecified syncope type R55 and Dizziness R42 [place] [address] [address] 14 Mar, 2018 Adjustment disorder with depressed mood F43.21 and Anxiety F41.9 [facility] [address] [address] February, Seasonal allergies J30.2 [facility] [place] [id number] [place] [address] February, [facility] [id number] [place] [address] Dec, Seasonal allergic rhinitis, unspecified trigger J30.2 and Sore throat J02.9 [facility] [place] [id number] [place] [address]190- 0046 Oct, Mood disorder F39 [place] [address] [address] Oct, Mood disorder F39 [place] [id number] [place] [address] 80642- 1070 Sep, Adjustment disorder with depressed mood F43.21 ; Screening cholesterol level Z13.220 and Screening for diabetes mellitus Z13.1 [facility] [place] [id number] [place] [address]96- 9783 Sep, Adjustment disorder with anxiety F43.22 and Adjustment disorder with depressed mood F43.21 [facility] [id number] [place] [address] 22 Aug, 2017 Pharyngitis due to other organism J02.8 [facility] [id number] [place] [address] 10 Aug, 2017 Sore throat J02.9 and Acute nasopharyngitis (common cold) J00 [facility] [id number] [place] [address] 81708 -1399 19 Mar, 2017 Acute nasopharyngitis J00 [facility] [place] [id number] [place] [address] 03127- 9581 07 Mar, 2017 Adjustment disorder with anxiety F43.22 ; Adjustment disorder with depressed mood F43.21 and Bipolar 1 disorder, manic, mild F31.11 [facility] [place] [address] [address] Mar, [facility] [place] [id number] [place] [address] 25580- 8985 08 Nov, 2016 39 weeks gestation of Z3A.39 [facility] [place] [id number] [place] [address] 43715- 1693 Nov, care in third trimester Z34.93 [facility] [place] [id number] [place] [address] 58283- 8937 Oct, Normal in third trimester Z34.93 [facility] [place] [id number] [place] [address] 54954- 2143 Oct, [facility] [place] [id number] [place] [address] 91749- 2984 Oct, Third trimester at less than 36 weeks Z33.1 [facility] [place] [id number] [place] [address] 30592- 7870 Oct, [facility] [id number] [place] [address] [id number] Oct, [facility] [place] [id number] [place] [address] 96874- 0675 Oct, Normal in third trimester Z34.93 [facility] [place] [address] [place] [address] 63024- 5605 Sep, Normal in third trimester Z34.93 [facility] [place] [address] [place] [address] 34229- 4410 Sep, Third trimester at less than 36 weeks Z33.1 and Encounter for immunization Z23 [facility] [place] [id number] [place] [address] 44582- 4796 23 Aug, 2016 Adjustment disorder with anxiety F43.22 and Adjustment disorder with depressed mood F43.21 [facility] [place] [id number] [place] [address] 37100- 2069 Aug, Abnormal glucose tolerance test in O99.810 [facility] [place] [address] [place] [address] 95098- 8016 Aug, [facility] [place] [id number] [place] [address] 43946- 2457 Aug, Normal in second trimester Z34.92 [facility] [id number] [place] [address]64 [address] Aug, Acute upper respiratory infection, unspecified J06.9 and Other viral agents as the cause of diseases classified elsewhere B97.89 [place] [id number] [place] [address] 13535- 9764 Jul, Adjustment disorder with depressed mood F43.21 and Bipolar 1 disorder, manic, mild F31.11 [place] [id number] [place] [address] 04365- 0838 Jul, Bipolar 1 disorder, manic, mild F31.11 ; Adjustment disorder with anxiety F43.22 and Adjustment disorder with depressed mood F43.21 [place] [id number] [place] [address] 10819- 3700 Jul, Normal in second trimester Z34.92 [facility] [address] [place] [address] 97250 -8736 Jul, Contact dermatitis, unspecified contact dermatitis type, unspecified trigger L25.9 [place] [address] [place] [address] 09750- 8924 Jul, Adjustment disorder with depressed mood F43.21 ; Adjustment disorder with anxiety F43.22 and Bipolar 1 disorder, manic, mild F31.11 [place] [id number] [place] [address] 85954- 5975 Jul, Adjustment disorder with depressed mood F43.21 and Bipolar 1 disorder, manic, mild F31.11 [place] [id number] [place] [address] 95026- 1121 Jun, Adjustment disorder with depressed mood F43.21 and Bipolar 1 disorder, manic, mild F31.11 [place] [id number] [place] [address] 23374- 4058 Jun, Adjustment disorder with depressed mood F43.21 ; Bipolar 1 disorder, manic, mild F31.11 and Anxiety, generalized F41.1 [place] [id number] [place] [address] 40401- 4062 Jun, Normal in second trimester Z34.92 ; 18 weeks gestation of Z3A.18 and Encounter for immunization Z23 [place] [address] [address]- 9466 07 Jun, 2016 Normal in first trimester Z34.91 [place] [address] [address]- [address]98 May, care in second trimester Z34.92 [place] [address] 9[address]- [address] May, [place] [address] [address]- [address] May, [place] [address] 44037- 0139 15 May, 2016 Major depressive disorder, recurrent, moderate F33.1 [place] [address] [address]- [address] 10 May, 2016 Normal in first trimester Z34.91 ; Pap smear for cervical cancer screening Z12.4 ; Screen for STD (sexually transmitted disease) Z11.3 and 12 weeks gestation of Z3A.[address] [address]- [address] 08 May, 2016 12 weeks gestation of Z3A.12 ; Unspecified abdominal pain R10.9 and Other specified related conditions, unspecified trimester O26.[address] [address]- 9[address] Apr, [facility] [place] [address] [address] Apr, [facility] [place] [id number] [place] [address] 14395- 1762 February, [facility] [place] [address] [place] [address] 00473- 7644 February, Bipolar 1 disorder, manic, mild F31.11 and Adjustment disorder with depressed mood F43.21 [place] [id number] [place] [address] 18557- 7365 Dec, Major depressive disorder, single episode, moderate F32.1 ; Adjustment disorder with depressed mood F43.21 and Bipolar 1 disorder, manic, mild F31.11 [place] [address] [place] [address] 71544- 6261 Dec, Adjustment disorder with depressed mood F43.21 ; Major depressive disorder, single episode, moderate F32.1 and Bipolar 1 disorder, manic, mild F31.11 [place] [address] [place] [address] 28533- 8196 Dec, Right hand pain M79.641 [place] [address] [place] [address] 35448- 8004 Dec, Major depressive disorder, single episode, moderate F32.1 and Adjustment disorder with depressed mood F43.21 [place] [address] [place] [address] 88750- 1514 Nov, Major depressive disorder, single episode, moderate F32.1 [place] [address] [place] [address] 74791- 7962 Nov, Adjustment disorder with depressed mood F43.21 ; Bipolar 1 disorder, manic, mild F31.11 and Adjustment disorder with anxiety F43.22 [facility] [place] [address] [address]- 00[address] Oct, [place] [address] [address] 0606 13 Oct, 2015 Encounter for counseling regarding contraception Z30.9 ; Initiation of OCP (BCP) Z30.011 ; Routine screening for STI (sexually transmitted infection) Z11.3 and Dysmenorrhea N94.6 [place] [id number] [place] [address] 51565- 6688 Sep, Acute upper respiratory infection, unspecified J06.9 ; Other viral agents as the cause of diseases classified elsewhere B97.89 and Post -nasal drip R09.82 [place] [id number] [place] [address] 59699- 1578 Aug, Depressive disorder, not elsewhere classified 311 [place] [id number] [place] [address] 55754- 7986 Jul, Depression, major, recurrent, moderate F33.1 [place] [id number] [place] [address] 76277- 4569 Jun, Major depressive disorder, recurrent episode, moderate 296.32 [place] [id number] [place] [address] 39043- 8815 04 Mar, 2015 Major depression, recurrent 296.30 [place] [id number] [place] [address] 25699- 5463 14 Jan, 2015 [place] [id number] [place] [address] 88612- 2095 Jan, [place] [id number] [place] [address] 37671- 5693 Dec, [place] [id number] [place] [address] 40818- 7914 Dec, [place] [id number] [place] [address] 51431- 9509 Nov, [place] [id number] [place] [address] 54070- 7164 Nov, [facility] [place] [facility] [address] [id number] [place] [address]- 7186 Oct, [facility] [place] [facility] [address] [id number] [place] [address]- 6930 Oct, [facility] [place] [facility] [address] [id number] [place] [address]- 7109 Sep, [facility] [place] [facility] [address] [id number] [place] [address]- 1125 Sep, [facility] [place] [facility] [address] [id number] [place] [address]- 3138 Sep, [facility] [place] [facility] [address] [id number] [place] [address]- 9234 Sep, [facility] [place] [facility] [address] [id number] [place] [address]- 0703 Sep, [facility] [place] [facility] [address] [id number] [place] [address]- 7098 Sep, [facility] [place] [facility] [address] [id number] [place] [address]- 0741 Aug, [facility] [place] [facility] [address] [id number] [place] [address]- 4659 Aug, [facility] [place] [facility] [address] [id number] [place] [address]- 4593 Aug, [facility] [place] [facility] [address] [id number] [place] [address]- 6308 Aug, [facility] [place] [facility] [address] [id number] [place] [address]- 6588 Jul, [facility] [place] [facility] [address] [id number] [place] [address]- 5197 Jul, [facility] [place] [facility] [address] [id number] [place] [address]- 8020 16 Jul, 2014 [facility] [place] [facility] [address] [id number] [place] [address]- 5286 Jul, [facility] [place] [facility] [address] [id number] [place] [address]- 8804 17 Jun, 2014 [facility] [place] [facility] [address] [id number] [place] [address]- 9806 Jun, [facility] [place] [facility] [address] [id number] [place] [address]- 0986 Jun, [facility] [place] [facility] [address] [id number] [place] [address]- 3844 Jun, [facility] [place] [facility] [address] [id number] [place] [address]- 9446 Apr, [facility] [place] [facility] [address] [id number] [place] [address]- 4518 Apr, [facility] [place] [facility] [address] [id number] [place] [address]- 5636 Mar, [facility] [place] [facility] [address] [id number] [place] [address]- 1065 Mar, [facility] [place] [facility] [address] [id number] [place] [address]- 4570 Mar, [facility] [place] [facility] [address] [id number] [place] [address]- 6467 Mar, [facility] [place] [facility] [address] [id number] [place] [address]- 0908 February, [facility] [place] [facility] [address] [id number] [place] [address]- 8801 February, [facility] [place] [facility] [address] [id number] [place] [address]- 7598 February, [facility] [place] [facility] [address] [id number] [place] [address]- 1309 February, [facility] [place] [facility] [address] [id number] [place] [address]- 2566 February, [facility] [place] [facility] [address] [id number] [place] [address]- 4695 February, [facility] [address] [id number] [place] [address]- 2553 February, [facility] [address] [id number] [place] [address]- 4803 Jan, [facility] [address] [id number] [place] [address]- 1590 Jan, [facility] [address] [id number] [place] [address]- 7602 Jan, [facility] [address] [id number] [place] [address]- 1151 Jan, [facility] [address] [id number] [place] [address]- 9202 Jan, [facility] [address] [id number] [place] [address]- 2088 Jan, [facility] [address] [id number] [place] [address]- 6398 Jan, [facility] [address] [id number] [place] [address]- 6786 Jan, [facility] [address] [id number] [place] [address]- 4415 Oct, [facility] [address] [id number] [place] [address]- 5388 Oct, [facility] [address] [id number] [place] [address]171 Sep, [facility] [place] [facility] [address] [id number] [place] [address]- 2382 Sep, [facility] [place] [facility] [address] [id number] [place] [address]- 3905 Jun, [facility] [address] [id number] [place] [address]- 1643 Jun, [facility] [address] [id number] [place] [address]- 6710 Oct, [facility] [place] [facility] [address] [id number] [place] [address]- 3556 Sep, [facility] [place] [facility] [address] [id number] [place] [address]- 2088 Sep, [facility] [place] [facility] [address] [id number] [place] [address]- 9106 Jun, [facility] [place] [facility] [address] [id number] [place] [address]- 2067 25 Jun, 2012 [facility] [place] [facility] [address] [id number] [place] [address]- 9354 24 Jun, 2012 [facility] [place] [facility] [address] [id number] [place] [address]- 7196 Jun, [facility] [place] [facility] [address] [id number] [place] [address]- 4392 Jun, [facility] [place] [facility] [address] [id number] [place] [address]- 9476 05 Jun, 2012 [facility] [place] [facility] [address] [id number] [place] [address]- 7786 Apr, [facility] [place] [facility] [address] [id number] [place] [address]- 5011 Mar, [facility] [place] [facility] [address] [id number] [address]- 8802 Mar, [facility] [place] [facility] [address] [id number] [place] [address]- 6140 Dec, [facility] [place] [facility] [address] [id number] [place] [address]- 3466 Oct, [facility] [place] [facility] [address] [id number] [address]- 8008 Aug, [facility] [place] [facility] [address] [id number], [place] [address]- 7934 Aug, [facility] [place] [address] [address]- 8770 Aug, [facility] [place] [address] [address]- 3555 Aug, [facility] [place] [address] [address]- 1778 Aug, [facility] [place] [address] [address]- 2091 Jul, [facility] [place] [address] [place] [address] 99997- 4310 Jul, [facility] [place] [id number] [place] [address] 03329- 6988 Jun, [facility] [place] [address] [address]- 6301 Jul, [facility] [place] [address] [address]- 2479 Aug, [facility] [place] [address] [address]- 5236 Aug, [facility] [place] [address] [address]- 9097 Oct, IMMUNIZATIONS No Known Immunizations SOCIAL HISTORY Never Assessed REASON FOR VISIT [facility]/lupe Rapp MA PLAN OF CARE Activity Details Follow Up 2 Months Reason: VITAL SIGNS Height 63.75 in 2018-05-14 Weight 124.9 lbs 2018-05-14 Heart Rate 63 bpm 2018-05-14 Respiratory Rate 20 2018-05-14 Oximetry 98 % 2018-05-14 BMI 21.61 kg/m2 2018-05-14 Blood pressure systolic 118 mmHg 2018-05-14 Blood pressure diastolic 68 mmHg 2018-05-14 MEDICATIONS Medication Instructions Dosage Frequency Start Date [...]
--- OUTSIDE RECORDS SUMMARY | 2018-08-05 14:12 | XMS REPORT | Continuity of Care Document ---
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 DO [id number] 07/09/2012 08:24:00 07/09/2012 23:59:59 CLS Outpatient NATE MEI PHD [id number] 06/23/2013 07:46:00 Document Registration [id number] 11/15/2012 15:36:46 RECURRING [id number] 04/24/2018 16:40:00 04/24/2018 23:59:59 CLS Outpatient IVY SWIFT [facility] [id number] 10/16/2017 16:00:00 Document Registration [id number] 06/16/2015 03:18:52 ACT Document Registration [id number] 08/29/2016 13:06:00 Document Registration [id number] 11/16/2016 18:06:00 Document Registration [id number] 06/23/2018 15:56:00 06/23/2018 17:27:00 DIS Outpatient GULSHAN ONEAL [facility] ER SORE THROAT, STUFFY NOSE [id number] 05/17/2018 13:45:00 05/17/2018 14:41:00 DIS Outpatient EMILEE QUIROZ MD [facility] ER PAINFUL URINATION [id number] 04/26/2018 13:18:00 04/26/2018 14:47:00 DIS Emergency JAMEY ROMAN [facility] ER DIZZINESS [id number] 04/19/2018 16:30:00 04/19/2018 19:05:00 DIS Emergency GLO BLOOM APRN [facility] ER PROBLEMS WITH BLOOD SUGAR, DIZZY SPELLS,NAUSEA [id number] 03/14/2018 19:06:00 03/14/2018 19:32:00 DIS Emergency GLO BLOOM APRN [facility] ER PAIN WHEN URINATING [id number] 01/05/2018 15:23:00 01/05/2018 17:42:00 DIS Emergency EMILEE QUIROZ MD [facility] ER FEVER [id number] 12/20/2017 17:00:00 12/20/2017 18:42:00 DIS Emergency ANGELICA MD, CAROLYN García [facility] ER ABD PAIN,VOMITING [id number] 12/07/2017 17:43:00 12/07/2017 19:53:00 DIS Emergency KOFI LINCOLN, BRENDA Arevalo [facility] ER UTI [id number] 10/30/2017 00:38:00 10/30/2017 02:23:00 DIS Emergency EMILEE QUIROZ MD [facility] ER FEVER,NAUSEA [id number] 10/23/2017 17:40:00 10/23/2017 17:55:00 DIS Emergency GLO BLOOM APRN [facility] ER DENTAL PAIN [id number] 09/26/2017 17:31:00 09/26/2017 19:07:00 DIS Emergency JAMEY ROMAN [facility] ER PELVIC PAIN [id number] 09/14/2017 15:07:00 09/14/2017 15:34:00 DIS Emergency GLO BLOOM APRN [facility] ER ANXIETY/CP [id number] 07/14/2017 18:15:00 07/14/2017 18:59:00 DIS Emergency BRENDA KIRBY MD [facility] ER LOWER BACK PAIN [id number] 06/17/2017 01:04:00 06/17/2017 01:29:00 DIS Emergency BRENDA KIRBY MD [facility] ER CHEST PAIN SOA [id number] 05/14/2017 21:27:00 05/14/2017 22:28:00 DIS Emergency GLO BLOOM APRN [facility] ER CHILLS;THROAT PAIN [id number] 05/01/2017 14:07:00 05/01/2017 15:00:00 DIS Emergency GLO BLOOM APRN [facility] ER POSS UTI/STD [id number] 04/03/2017 16:56:00 04/03/2017 20:10:00 DIS Emergency TACOS KAUR DO [facility] ER ABD PAIN [id number] 11/28/2016 05:55:00 11/29/2016 18:00:00 DIS Inpatient TATIANA WEI MD [facility] LDRP INDUCTION [id number] 11/05/2016 21:23:00 11/05/2016 23:23:00 DIS Outpatient TATIANA WEI MD [facility] WSo CONTRACTIONS [id number] 11/04/2016 01:52:00 11/04/2016 04:44:00 DIS Outpatient KOLE LAMB MD [facility] WSo CONTRACTIONS W BLOOD [id number] 10/21/2016 02:16:00 10/21/2016 03:38:00 DIS Emergency TACOS KAUR DO [facility] ER COUGHING NAUSEA HARD BREATHING [id number] 09/09/2016 13:22:00 09/09/2016 23:59:59 CLS Outpatient TATIANA WEI MD [facility] LAB ABNORMAL GLUCOSE TOLERANCE TEST IN [id number] 09/07/2016 14:21:00 09/07/2016 15:10:00 DIS Outpatient KOLE LAMB MD [facility] WSo DECREASED MOVEMENT [id number] 09/03/2016 00:25:00 09/03/2016 00:38:00 DIS Emergency OSVALDO VALENTIN MD [facility] ER POSS BUG BITE ON RT ARM [id number] 09/02/2016 14:08:00 09/02/2016 23:59:59 CLS Outpatient TATIANA WEI MD [facility] RAD NORMAL PREG IN SECOND TRIMESTER [id number] 08/27/2016 23:27:00 08/28/2016 00:40:00 DIS Emergency OSVALDO VALENTIN MD [facility] ER COUGH [id number] 07/27/2016 16:59:00 07/27/2016 17:55:00 DIS Outpatient KACEY SCRUGGS DO [facility] WSo CONTRACTIONS [id number] 07/10/2016 10:29:00 07/10/2016 23:59:59 CLS Outpatient KACEY SCRUGGS DO [facility] RAD NORMAL [id number] 07/09/2016 10:08:00 07/09/2016 12:30:00 DIS Emergency RICHIE LINCOLN, EMILEE Cortes [facility] ER POSS CONTRACTIONS 18 WEEKS PREG [id number] 07/08/2016 00:10:00 07/08/2016 03:17:00 DIS Emergency RICHIE LINCOLN, EMILEE Cortes [facility] ER HEADACHE, 17 WKS PREG [id number] 07/01/2016 20:38:00 07/01/2016 23:50:00 DIS Emergency JAMEY ROMAN [facility] ER VOMITING/DIZZY/ HEADACHE [id number] 06/27/2016 20:05:00 06/27/2016 21:07:00 DIS Emergency GLO BLOOM APRN [facility] ER FALL [id number] 06/13/2016 00:28:00 06/13/2016 01:21:00 DIS Emergency JONG DOALANA K [facility] ER ALTERCATION [id number] 06/12/2016 00:37:00 06/12/2016 01:45:00 DIS Emergency JONG DO, HERNANDO K [facility] ER HURTS TO URINATE [id number] 06/06/2016 21:08:00 06/06/2016 23:03:00 DIS Emergency GLO BLOOM APRN [facility] ER NAUSEA;DIZZINESS [id number] 05/30/2016 17:16:00 05/30/2016 23:59:59 CLS Outpatient SHEBA CAMPOS KACEY Jake [facility] RAD CRAMPING [id number] 05/12/2016 18:43:00 05/12/2016 20:21:00 DIS Emergency JAMEY ROMAN [facility] ER ABD PAIN [id number] 04/26/2016 15:25:00 04/26/2016 18:28:00 DIS Emergency JAMEY ROMAN [facility] ER LATE PERIOD/KNOT IN ABD AREA [id number] 02/26/2016 21:34:00 02/26/2016 22:47:00 DIS Emergency OSVALDO VALENTIN MD [facility] ER [id number] 01/28/2016 13:32:00 01/28/2016 16:19:00 DIS Emergency JAMEY ROMAN [facility] ER [id number] 06/15/2015 17:54:00 06/15/2015 18:45:00 DIS Emergency GLO BLOOM APRN [facility] ER [id number] 10/31/2014 16:15:00 10/31/2014 17:20:00 DIS Emergency GLO BLOOM APRN [facility] ER [id number] 10/08/2014 21:47:00 10/08/2014 22:15:00 DIS Emergency JUVENAL ROGER MD [facility] ER [id number] 04/16/2014 21:59:00 04/16/2014 22:40:00 DIS Emergency GLO BLOOM APRN [facility] ER DIZZINESS LEFT SIDE PAIN [id number] 03/21/2014 14:30:00 03/21/2014 15:36:00 DIS Emergency [id number] 02/13/2014 23:05:00 02/13/2014 23:40:00 DIS Emergency HERNANDO SUNSHINE DO [facility] ER ABD PAIN [id number] 01/24/2014 01:45:00 01/26/2014 17:45:00 DIS Inpatient TATIANA WEI MD [facility] WS CTXS/ LABOR [id number] 01/22/2014 23:06:00 01/23/2014 00:20:00 DIS Outpatient [facility]S DO [facility] CT[facility] [id number] 01/21/2014 16:02:00 01/21/2014 17:08:00 DIS Outpatient TATIANA WEI MD [facility] ABD PAIN [id number] 01/20/2014 23:16:00 01/21/2014 00:48:00 DIS Outpatient TATIANA WEI MD [facility] CONTRACTIONS,FLUID LEAKING [id number] 01/05/2014 16:57:00 01/05/2014 18:40:00 DIS Outpatient TATIANA WEI MD [facility] CONTRACTIONS [id number] 12/27/2013 15:52:00 12/27/2013 18:45:00 DIS Outpatient TATIANA WEI MD [facility] ABD PAIN; BACK PAIN [id number] 12/22/2013 21:16:00 12/22/2013 22:55:00 DIS Emergency GLO BLOOM APRN [facility] ER FELL OFF BED @ 34 WEEKS, HEAD PAIN [id number] 12/10/2013 23:40:00 12/11/2013 10:40:00 DIS Outpatient TATIANA WEI MD [facility] LOUD NOISES BOTHER PT, FEVER,COUGH,32 WKS PREG [id number] 12/10/2013 23:07:00 12/10/2013 23:37:00 DIS Emergency JUVENAL ROGER MD [facility] ER LOUD NOISES BOTHER PT, FEVER,COUGH [id number] 12/07/2013 06:15:00 12/07/2013 07:47:00 DIS Emergency JONG DOHERNANDO K [facility] ER DIZZY,COUGHING,DIARRHEA [id number] 11/23/2013 13:22:00 11/23/2013 17:56:00 DIS Emergency JAMEY ROMAN [facility] ER LOW BLOOD SUGAR/FEVER 29 WKS PREG [id number] 10/27/2013 17:11:00 10/27/2013 20:00:00 DIS Outpatient TATIANA WEI MD [facility] C/O PREMATURE LABOR [id number] 10/23/2013 16:35:00 10/23/2013 18:15:00 DIS Outpatient TATIANA WEI MD [facility] BLEEDING [id number] 10/05/2013 20:27:00 10/05/2013 21:46:00 DIS Emergency GLO BLOOM APRN [facility] ER N/V/D [id number] 09/23/2013 14:18:00 09/23/2013 23:59:59 CLS Outpatient TATIANA WEI MD [facility] RAD FUNDAL HEIGHT DISCREPENCY [id number] 09/03/2013 23:00:00 09/03/2013 23:30:00 DIS Emergency HERNANDO SUNSHINE DO [facility] ER ALTERCATION,BACK PAIN [id number] 08/27/2013 18:08:00 08/27/2013 20:58:00 DIS Emergency BARBIE LINCOLN, OSVALDO Grace [facility] ER FELL AT HOME; ABD PAIN ; L KNEE PAIN [id number] 08/21/2013 14:28:00 08/21/2013 16:21:00 DIS Emergency GLO BLOOM APRN [facility] ER 15 WKS; ABD PAIN [id number] 07/21/2013 14:51:00 07/21/2013 15:58:00 DIS Emergency [id number] 06/28/2013 15:38:00 06/28/2013 23:59:59 CLS Outpatient [id number] 05/09/2013 17:13:00 05/09/2013 19:04:00 DIS Emergency [id number] 04/30/2013 18:48:00 04/30/2013 21:44:00 DIS Emergency [id number] 04/04/2013 20:11:00 04/04/2013 21:26:00 DIS Emergency [id number] 03/04/2013 13:16:00 03/04/2013 23:59:59 CLS Outpatient MAJOR, GAMALIEL ALPINE PATROLLER [facility] QUICK [id number] 05/26/2018 18:45:00 Document Registration [id number] 08/21/2016 01:00:00 Document Registration [id number] 08/20/2016 23:48:00 Document Registration [id number] 11/16/2014 10:01:00 Document Registration [id number] 11/16/2014 10:01:00 Document Registration [id number] 11/16/2014 10:01:00 Document Registration [id number] 11/16/2014 10:01:00 Document Registration [id number] 11/16/2014 10:01:00 Document Registration [id number] 11/16/2014 10:01:00 Document Registration [id number] 11/16/2014 10:01:00 Document Registration [id number] 11/16/2014 10:01:00 Document Registration [id number] 11/16/2014 10:01:00 Document Registration [id number] 11/16/2014 10:01:00 Document Registration [id number] 11/16/2014 10:01:00 Document Registration [id number] 11/16/2014 10:01:00 Document Registration [id number] 11/16/2014 10:01:00 Document Registration [id number] 11/16/2014 10:01:00 Document Registration [id number] 11/16/2014 10:01:00 Document Registration [id number] 08/26/2011 09:52:00 Document Registration [id number] 05/09/2011 17:28:00 Document Registration [id number] 03/20/2011 15:01:00 Document Registration [id number] 12/06/2010 22:29:00 Document Registration [id number] 01/22/2010 14:40:00 Document Registration
== END 2018-08-05 12:37 | disposition home or self-care (01) ==
LOC: EDUNIT# 11:54 → ER 11:55
DX: N39.0 Urinary tract infection, site not specified (principal); J45.909 Unspecified asthma, uncomplicated; E11.9 Type 2 diabetes mellitus without complications; F41.0 Panic disorder [episodic paroxysmal anxiety]; K21.9 Gastro-esophageal reflux disease without esophagitis; F17.210 Nicotine dependence, cigarettes, uncomplicated
CPT/HCPCS: 81000; 84703; 87077; 87088; 87186; 99282

== ENCOUNTER 2018-08-11 12:06 | Emergency (ER) | payer SELFPAY ==
[~2018-08-11] VITALS: Ht 162.6 cm; Wt 49.9 kg
[~2018-08-11 12:06] MED LIST changes: +NITR100C PO
--- NOTE | 2018-08-11 13:01 | ED GU-Female ---
General Chief Complaint: Abdominal/GI Problems Stated Complaint: STOMACH FEELS HARD Nursing Triage Note: PT PRESENTS TO ED WITH COMPLAINTS OF LOWER ABDOMINAL PRESSURE/TIGHTNESS X 3 DAYS. PT REPORTS X5 DAYS SHE HAS BEEN NAUSEATED IN THE AM AND VOMITING. PT RPEORTS HER LMP WAS 06/29/18. PT STATES SHE TOOK 2 HOME PREGNANCIES THAT WERE NEGATIVE, Nursing Sepsis Screen: No Definite Risk Source: patient Exam Limitations: no limitations History of Present Illness Date Seen by Provider: Aug 11, 2018 Time Seen by Provider: 12:40 Initial Comments Here with report of lower abdominal discomfort. States that she has symptoms of morning sickness and like other women have which includes nausea. She believes she is probably . She was seen 5 days ago here with negative test but did have findings of urinary tract infection that culture shows Escherichia coli and sensitive to nitrofurantoin. She has been prescribed this and reports taking as directed. Denies fever or chills. Denies dysuria or diarrhea. Did have 2 days of vaginal bleeding on July 31 and but states that wasn't her period. Denies vaginal discharge Timing/Duration: changing over time, other (2-3 days) Severity/Quality: mild, cramping Location: suprapubic Radiation: none Activities at Onset: none Sexual Taft History: less than 2 months ago, single partner Modifying Factors: Improves With Resting Associated Symptoms: No dysuria, No fever/chills, No lower back pain, No nausea /vomiting, No urinary frequency Allergies and Home Medications Allergies Coded Allergies: No Known Drug Allergies (Unverified , 06/23/18) Home Medications Hydroxyzine Pamoate 25 Mg Capsule, 25 MG PO Q6H PRN for ANXIETY Prescribed by: GLO BLOOM on 05/26/18 1851 Nitrofurantoin Macrocrystal 100 Mg Capsule, 100 MG PO BID Prescribed by: BRENDA KIRBY on 08/05/18 1234 Phenazopyridine HCl 100 Mg Tablet, 100 MG PO TID, (Reported) Sulfamethoxazole/Trimethoprim 1 Each Tablet, 1 EACH PO BID, (Reported) Patient Home Medication List Home Medication List Reviewed: Yes Review of Systems Review of Systems Constitutional: see HPI; No chills, No fever Respiratory: no symptoms reported Cardiovascular: no symptoms reported Gastrointestinal: see HPI Genitourinary: see HPI LMP: Jul 31, 2018 All Other Systemes Reviewed Negative Unless Noted: Yes Past Whvtiih-Ltnzoi-Nwzxbz Hx Past Med/Social Hx: Reviewed Nursing Past Med/Soc Hx Patient Social History Alcohol Use: Denies Use Recreational Drug Use: No Smoking Status: Current Everyday Smoker Type Used: Electronic/Vapor Former Smoker, Quit: Mar 20, 2018 2nd Hand Smoke Exposure: No Recent Foreign Travel: No Contact w/Someone Who Travel: No Recent Infectious Disease Expo: No Recent Hopitalizations: No Immunizations Up To Date Tetanus Booster (TDap): Unknown PED Vaccines UTD: No Date of Influenza Vaccine: Oct 04, 2016 Seasonal Allergies Seasonal Allergies: Yes Past Medical History Surgeries: No Respiratory: No Asthma Currently Using CPAP: No Currently Using BIPAP: No Cardiac: No Neurological: No Last Menstrual Period: Jun 29, 2018 Reproductive Disorders: No Female Reproductive Disorders: Denies Sexually Transmitted Disease: Yes HIV/AIDS: No Genitourinary: Yes UTI-Chronic Gastrointestinal: No Gastroesophageal Reflux Musculoskeletal: No Endocrine: Yes Diabetes, Non-Insulin dep HEENT: No Cancer: No Psychosocial: Yes (panic attacks) Anxiety Integumentary: No Blood Disorders: No Family Medical History Reviewed Nursing Family Hx Family history: Asthma 03 MOTHER Family history: Diabetes mellitus (type 2 diabetes) 03 MOTHER History of - disorder (anxiety, Brother has heart murmur) 03 MOTHER No Pertinent Family Hx Physical Exam Vital Signs Vital Signs - First Documented 08/11/18 12:45 Temp 98.2 Pulse 68 Resp 20 B/P (MAP) 112/65 (81) Pulse Ox 100 Capillary Refill : Less Than 3 Seconds Height, Weight, BMI Height: 5'4.00" Weight: 110lbs. 0oz. 49.045511ai; 26.3 BMI Method:Stated General Appearance: WD/WN, no apparent distress Neck: full range of motion, supple Cardiovascular: regular rate, rhythm, no murmur Respiratory: lungs clear, normal breath sounds Gastrointestinal: non tender, soft Back: normal inspection, no CVA tenderness, no vertebral tenderness Extremities: non-tender, normal inspection Neurologic/Psychiatric: alert, oriented x 3 Skin: normal color, warm/dry Progress/Results/Core Measures Suspected Sepsis Recent Fever Within 48 Hours: No Infection Criteria Present: None New/Unexplained Altered Menta: No Sepsis Screen: No Definite Risk SIRS Temperature:98.2 Pulse: 68 Respiratory Rate: 20 Blood Pressure 112 /65 Mean: 81 Results/Orders Lab Results Laboratory Tests Test 08/11/18 12:51 Range/Units Urine Color YELLOW Urine Clarity SLIGHTLY CLOUDY Urine pH 7 5-9 Urine Specific [place] 1.010 L 1.016-1.022 Urine Protein NEGATIVE NEGATIVE Urine Glucose (UA) NEGATIVE NEGATIVE Urine Ketones NEGATIVE NEGATIVE Urine Nitrite NEGATIVE NEGATIVE Urine Bilirubin NEGATIVE NEGATIVE Urine Urobilinogen NORMAL NORMAL MG/DL Urine Leukocyte Esterase 2+ H NEGATIVE Urine RBC (Auto) NEGATIVE NEGATIVE Urine RBC NONE /HPF Urine WBC 5-10 H /HPF Urine Squamous Epithelial Cells 5-10 /HPF Urine Crystals NONE /LPF Urine Bacteria TRACE /HPF Urine Casts NONE /LPF Urine Mucus MODERATE H /LPF Urine Culture Indicated YES Urine Test NEGATIVE NEGATIVE My Orders Orders - OSVALDO VALENTIN MD Ua Culture If Indicated (08/11/18 12:47) Hcg,Qualitative Urine (08/11/18 12:48) Urine Culture (08/11/18 12:51) Vital Signs/I&O 08/11/18 12:45 Temp 98.2 Pulse 68 Resp 20 B/P (MAP) 112/65 (81) Pulse Ox 100 Capillary Refill : Less Than 3 Seconds Blood Pressure Mean: 81 Progress Note : Progress Note Seen and evaluated. UA and UCG ordered. Monitor patient. 1340: UCG negative. UA appears to be improving. Discharge home with return precautions. Patient verbalize understanding instructions and agreement with plan. Departure Impression Primary Impression: Lower abdominal pain Additional Impression: Urinary tract infection Qualified Codes: N30.00 - Acute cystitis without hematuria Disposition: HOME, SELF-CARE Condition: Improved Departure-Patient Inst. Decision time for Depature: 13:46 Referrals: [facility][1[facility] (PCP) Primary Care Physician IVY SWIFT APRN (Family) Primary Care Physician Patient Instructions: Acute Abdomen (Belly Pain), Adult (DC), Urinary Tract Infection, Adult (DC) Add. Discharge Instructions: All discharge instructions reviewed with patient and/or family. Voiced understanding. You may take ibuprofen 600 mg every 8 hours as needed for pain. You may take Tylenol 1000 mg every 8 hours as needed for pain. Follow-up with your tomorrow as scheduled. Return for worse pain, fever, vomiting, weakness, breathing problems or other concerns as needed. Drink plenty of fluids. OSVALDO VALENTIN MD Aug 11, 2018 13:01
[2018-08-11 13:04] LABS: BILIRUBIN,URINE NEGATIVE (NEGATIVE); CLARITY,URINE SLIGHTLY CLOUDY; COLOR,URINE YELLOW; GLUCOSE, URINE (UA) NEGATIVE (NEGATIVE); KETONES,URINE NEGATIVE (NEGATIVE); LEUKOCYTE ESTERASE ,URINE 2+ (NEGATIVE); NITRITE,URINE NEGATIVE (NEGATIVE); PH,URINE 7 (5-9); PROTEIN,URINE NEGATIVE (NEGATIVE); UROBILINOGEN,URINE NORMAL (NORMAL)
[2018-08-11 13:19] LABS: BACTERIA,URINE TRACE /HPF
[2018-08-11 14:15] VITALS: BP 117/85
== END 2018-08-11 14:15 | disposition home or self-care (01) ==
LOC: EDUNIT# 12:06 → ER 12:08
DX: N39.0 Urinary tract infection, site not specified (principal); J45.909 Unspecified asthma, uncomplicated; K21.9 Gastro-esophageal reflux disease without esophagitis; E11.9 Type 2 diabetes mellitus without complications; F41.9 Anxiety disorder, unspecified; Z87.440 Personal history of urinary (tract) infections; Z87.891 Personal history of nicotine dependence
CPT/HCPCS: 81000; 84703; 87088; 99282

== ENCOUNTER 2019-05-31 20:55 | Emergency (ER) | payer SELFPAY ==
[~2019-05-31] VITALS: Ht 161.3 cm; Wt 56.7 kg
[2019-05-31] MEDS ORDERED: ACETAMINOPHEN 500 MG TAB (TYLENOL) PO STA (22:39)
--- NOTE | 2019-05-31 22:56 | ED Cough/URI ---
General Chief Complaint: Fever-Adult/Adol Stated Complaint: DIZZY,BODY ACHES Source: patient, family Exam Limitations: no limitations (EDITH LOCO) History of Present Illness Date Seen by Provider: May 31, 2019 Time Seen by Provider: 22:35 Initial Comments Pt presents with fever and chills that started today. She reports sinus pressure along the cheek bones and above her eyebrows. She has some fatigue, sore throat, and cough to clear her throat associated with the onset of other symptoms. She states she took some Claritin about 3-4 hours ago that did not help. She has been spending time at her brothers house that has black mold the past 3 days. Timing/Duration: this afternoon Severity/Quality: dry cough Prior Episodes/Possible Cause: no prior episodes Associated Symptoms: facial pain, fever/chills, headache, muscle aches, nasal congestion, sore throat (EDITH LOCO) Timing/Duration: this afternoon Severity/Quality: dry cough Associated Symptoms: facial pain, fever/chills, nasal congestion, sore throat (OSVALDO VALENTIN MD) Allergies and Home Medications Allergies Coded Allergies: No Known Drug Allergies (Unverified , 06/23/18) Home Medications Hydroxyzine Pamoate 25 Mg Capsule, 25 MG PO Q6H PRN for ANXIETY Prescribed by: GLO BLOOM on 05/26/18 1851 Nitrofurantoin Macrocrystal 100 Mg Capsule, 100 MG PO BID Prescribed by: BRENDA KIRBY on 08/05/18 1234 Phenazopyridine HCl 100 Mg Tablet, 100 MG PO TID, (Reported) Sulfamethoxazole/Trimethoprim 1 Each Tablet, 1 EACH PO BID, (Reported) Patient Home Medication List Home Medication List Reviewed: Yes (OSVALDO VALENTIN MD) Review of Systems Review of Systems Constitutional: chills, diaphoresis, fever, weakness EENTM: nose congestion, throat pain; No hearing loss, No ear pain Respiratory: see HPI Cardiovascular: no symptoms reported Gastrointestinal: No abdominal pain, No diarrhea, No nausea, No vomiting Genitourinary: no symptoms reported Musculoskeletal: see HPI Skin: no symptoms reported Psychiatric/Neurological: No Symptoms Reported Hematologic/Lymphatic: No Symptoms Reported Immunological/Allergic: no symptoms reported (EDITH LOCO) All Other Systems Reviewed Negative Unless Noted: Yes (OSVALDO VALENTIN MD) Past Upnwgrf-Dzphzi-Xrivsj Hx Past Med/Social Hx: Reviewed Nursing Past Med/Soc Hx (OSVALDO VALENTIN MD) Patient Social History Type Used: Electronic/Vapor Former Smoker, Quit: Mar 20, 2018 2nd Hand Smoke Exposure: No Recent Foreign Travel: No Contact w/Someone Who Travel: No Recent Hopitalizations: No (EDITH LOCO) Immunizations Up To Date Tetanus Booster (TDap): Unknown PED Vaccines UTD: No Date of Influenza Vaccine: Oct 04, 2016 (EDITH LOCO) Seasonal Allergies Seasonal Allergies: Yes (EDITH LOCO) Past Medical History Surgeries: No Respiratory: No Asthma Currently Using CPAP: No Currently Using BIPAP: No Cardiac: No Neurological: No Reproductive Disorders: No Female Reproductive Disorders: Denies Sexually Transmitted Disease: Yes HIV/AIDS: No Genitourinary: Yes UTI-Chronic Gastrointestinal: No Gastroesophageal Reflux Musculoskeletal: No Endocrine: Yes Diabetes, Non-Insulin dep HEENT: No Cancer: No Psychosocial: Yes (panic attacks) Anxiety Integumentary: No Blood Disorders: No (EDITH LOCO) Family Medical History Reviewed Nursing Family Hx (OSVALDO VALENTIN MD) Family history: Asthma 03 MOTHER Family history: Diabetes mellitus (type 2 diabetes) 03 MOTHER History of - disorder (anxiety, Brother has heart murmur) 03 MOTHER No Pertinent Family Hx (EDITH LOCO) Physical Exam Vital Signs - First Documented 05/31/19 22:20 Temp 101.1 Pulse 105 Resp 20 B/P (MAP) 121/82 (95) Pulse Ox 98 (OSVALDO VALENTIN MD) Capillary Refill : (EDITH LOCO) Height: 5'4.00" Weight: 110lbs. 0oz. 49.214954nu; 26.3 BMI Method:Stated General Appearance: WD/WN, mild distress HEENT: TMs normal Respiratory: lungs clear, normal breath sounds, no respiratory distress, no accessory muscle use Cardiovascular: regular rate, rhythm, no edema, no gallop, no JVD, no murmur Skin: normal color, warm/dry (EDITH LOCO) General Appearance: WD/WN, mild distress HEENT: PERRL/EOMI, TMs normal, pharyngeal erythema (mild); No tonsillar exudate Respiratory: lungs clear, normal breath sounds Cardiovascular: regular rate, rhythm, no murmur Neurologic/Psychiatric: alert, oriented x 3 Skin: normal color, warm/dry (OSVALDO VALENTIN MD) Progress/Results/Core Measures Suspected Sepsis SIRS Temperature:101.1 Pulse: Respiratory Rate: Blood Pressure / Mean: (EDITH LOCO) Results/Orders My Orders Orders - OSVALDO VALENTIN MD Acetaminophen Tablet (Tylenol Tablet) (05/31/19 22:39) Rx-Albuterol Inhaler (Rx-Proair) (05/31/19 23:00) Dexamethasone Injection (Decadron Inject (05/31/19 23:00) Ketorolac Injection (Toradol Injection) (05/31/19 22:59) (OSVALDO VALENTIN MD) Medications Given in ED Current Medications Medications Dose Ordered Sig/Adelita Route Start Time Stop Time Status Last Admin Dose Admin Albuterol Sulfate 2 PUFFS QID PRN IH 05/31/19 23:00 05/31/19 23:10 8.5 GM Dexamethasone Sodium Phosphate 10 mg ONCE ONCE IM 05/31/19 23:00 05/31/19 23:01 DC 05/31/19 23:12 10 MG (OSVALDO VALENTIN MD) Vital Signs/I&O 05/31/19 05/31/19 05/31/19 22:20 22:43 23:12 Temp 101.1 101.1 101.7 Pulse 105 Resp 20 B/P (MAP) 121/82 (95) Pulse Ox 98 (OSVALDO VALENTIN MD) Vital Signs/I&O Capillary Refill : (EDITH LOCO) Progress Note : Time: 22:35 Progress Note Seen by me. Pt complains of fever chills and sinus pressure. Possible sinusitis. Reported to Dr. Valentin with findings (EDITH LOCO) Progress Note : Progress Note I seen and evaluated the patient and agree with above except as indicated. Have directed the plan of care. Patient is here with facial tenderness and fever. She has not had anything for the pain. Tylenol by mouth given. Toradol 30 mg IM and Decadron 10 mg IM. Possible sinusitis versus viral upper respiratory infection. We will go ahead and treat given her symptoms. Discharge home with return precautions. Patient verbalize understanding instructions and agreement with plan. (OSVALDO VALENTIN MD) Departure Impression Primary Impression: Sinusitis, acute Qualified Codes: J01.90 - Acute sinusitis, unspecified Additional Impression: Viral upper respiratory infection Disposition: HOME, SELF-CARE Condition: Stable Departure-Patient Inst. Decision time for Depature: 23:40 (OSVALDO VALENTIN MD) Referrals: [facility] [place] Primary Care Physician Patient Instructions: Sinusitis, Adult (DC), Viral Upper Respiratory Infection, Adult (DC) Add. Discharge Instructions: All discharge instructions reviewed with patient and/or family. Voiced understanding. You may take Tylenol/acetaminophen 1000 mg every 8 hours as needed for fever or pain. You may take ibuprofen 600 mg every 8 hours as needed for fever or pain. You may use Afrin nasal spray or the generic, 12 hour relief, 2 sprays to each nostril twice daily for 3 days only and then stop. Do not use more than 3 days. Follow-up with your Dr. in a few days for recheck. Drink plenty of fluids. Return for worse pain, fever, vomiting, weakness, breathing problems or other concerns as needed. Take other medications as directed. Scripts Amoxicillin (Amoxicillin) 500 Mg Capsule 500 MG PO TID, #30 CAP 0 Refills Prov: OSVALDO VALENTIN MD 05/31/19 EDITH LOCO [facility] May 31, 2019 22:56 OSVALDO VALENTIN MD May 31, 2019 23:41
[2019-05-31] MEDS ORDERED: KETOROLAC 30 MG/ML VIAL IM STA (22:59)
[2019-05-31] MEDS ORDERED: RX-ALBUTEROL INHALER (PROAIR) 8.5 GM IH PRN (23:00)
[2019-05-31] MEDS ORDERED: DEXAMETHASONE 10 MG/ML (DECADRON) 1 ML VIAL IM ONE (23:00)
[2019-05-31] MEDS ORDERED: AMOX500C2 PO (23:41)
[2019-05-31 23:54] VITALS: BP 120/74
== END 2019-05-31 23:54 | disposition home or self-care (01) ==
LOC: EDUNIT# 20:55 → ER 20:56
DX: J01.90 Acute sinusitis, unspecified (principal); J45.909 Unspecified asthma, uncomplicated; K21.9 Gastro-esophageal reflux disease without esophagitis; E11.9 Type 2 diabetes mellitus without complications; F41.0 Panic disorder [episodic paroxysmal anxiety]; Z87.440 Personal history of urinary (tract) infections; Z77.22 Contact with and (suspected) exposure to environmental tobacco smoke (acute) (chronic)
CPT/HCPCS: 99284

== ENCOUNTER 2019-09-19 21:51 | Emergency (ER) | payer SELFPAY ==
[~2019-09-19] VITALS: Ht 162 cm; Wt 57.0 kg
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
[2019-09-19 22:32] LABS: BASOPHILS % (AUTO) 0 % (0-10); EOSINOPHILS # (AUTO) 0.1 10^3/uL (0.0-0.3); EOSINOPHILS % (AUTO) 1 % (0-10); HEMATOCRIT 41 % (35-52); HEMOGLOBIN 13.6 G/DL (11.5-16.0); LYMPHOCYTES # (AUTO) 2.2 X 10^3 (1.0-4.0); LYMPHOCYTES % (AUTO) 22 % (12-44); MEAN CORPUSCULAR HEMOGLOBIN 29 PG (25-34); MEAN CORPUSCULAR HGB CONC 34 G/DL (32-36); MEAN CORPUSCULAR VOLUME 85 FL (80-99); MEAN PLATELET VOLUME 10.6 FL (7.4-10.4); MONOCYTES # (AUTO) 1.1 X 10^3 (0.0-1.0); MONOCYTES % (AUTO) 10 % (0-12); NEUTROPHILS # (AUTO) 6.8 X 10^3 (1.8-7.8); NEUTROPHILS % (AUTO) 67 % (42-75); PLATELET COUNT 303 10^3/uL (130-400); RED CELL DISTRIBUTION WIDTH 13.5 % (10.0-14.5); WHITE BLOOD COUNT 10.2 10^3/uL (4.3-11.0)
[2019-09-19 22:55] VITALS: BP 106/74
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
--- NOTE | 2019-09-20 12:06 | NUR ---
Attempt to call patient regarding radiology report discrepancy. Phone number on file disconnected. Will send letter to patient's home today instructing patient to contact ED upon receipt of letter.
--- NOTE | 2019-09-29 19:37 | NUR ---
Spoke with patient regarding radiology report and encouraged patient to follow up with PCP. Pt verbalized understanding.
== END 2019-09-19 22:56 | disposition home or self-care (01) ==
LOC: EDUNIT# 21:51 → ER 21:52
DX: R07.81 Pleurodynia (principal); J45.909 Unspecified asthma, uncomplicated; K21.9 Gastro-esophageal reflux disease without esophagitis; E11.9 Type 2 diabetes mellitus without complications; F41.0 Panic disorder [episodic paroxysmal anxiety]; Z87.440 Personal history of urinary (tract) infections; Z87.891 Personal history of nicotine dependence; Y04.2XXA Assault by strike against or bumped into by another person, initial encounter
CPT/HCPCS: 36415; 71046; 73560; 73610; 84703; 85025

== ENCOUNTER 2020-01-20 19:47 | Emergency (ER) | payer MEDICAID ==
[~2020-01-20] VITALS: Ht 165 cm; Wt 56.9 kg
[~2020-01-20 19:47] MED LIST changes: -ARIP2TAB11; +ARIP2TAB20
--- OUTSIDE RECORDS SUMMARY | 2020-01-20 19:54 | XMS REPORT ---
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 Hospital strip Ql () [place] ([id number]) urine color determination on 2018-08-11 Color Nom (U) YELLOW (no code) Via [facility] ([id number]) urine clarity determination on 2018-08-11 Clarity Nom (U) SLIGHTLY CLOUDY (no code) Via [facility] ([id number]) squamous epithelial cells detection in urine sediment by light microscopy on 2018-08-11 Epithelial no information (no code) Via [facility] cells.squamous Hospital LM Ql (Urine [place] [facility]) ([id number]) specific gravity of urine by test strip on 2018-08-11 Specific gravity 1.010 (*) Via [facility] Relative Density [facility] ([facility] ([id number]) mucus detection in urine sediment by light microscopy on 2018-08-11 Mucus LM Ql MODERATE (*) Via [facility] (Urine sed) [facility] ([id number]) leukocyte esterase on 2018-08-11 Leukocyte 2+ (*) Via [facility] esterase Test Hospital strip Ql (U) [place] ([id number]) erythrocytes detection in urine sediment by light microscopy on 2018-08-11 RBC LM Ql (Urine no information (no code) Via [facility] ([id number]) crystals detection in urine sediment by light microscopy on 2018-08-11 Crystals LM Ql NONE (no code) Via [facility] (Urine sed) [facility] ([id number]) complete urinalysis with reflex to culture on 2018-08-11 Urinalysis YES (no code) Via [facility] Hospital Reflex Culture [place] panel - Urine ([id number]) casts detection in urine sediment by light microscopy on 2018-08-11 Casts LM Ql NONE (no code) Via [facility] (Urine sed) [facility] ([id number]) bacteria detection in urine sediment by light microscopy on 2018-08-11 Bacteria LM Ql TRACE (no code) Via [facility] (Urine sed) [facility] ([id number]) automated urine sediment leukocyte count by microscopy (number/high power field) on 2018-08-11 WBC LM.HPF no information (*) Via [facility] #/area (Urine [facility] ([id number]) automated urine sediment erythrocyte count by microscopy (number/high power field) on 2018-08-11 RBC LM.HPF NONE (no code) [facility] #/area ([facility]) [place] ([id number]) urine urobilinogen measurement by automated test strip (mass/volume) on 2018-08-05 Urobilinogen 1 (no code) Via [facility] Test strip [facility] ([facility] ([id number]) urine total bilirubin detection by test strip on 2018-08-05 Bilirubin Ql (U) no information (no code) Via [facility] ([id number]) urine protein assay by test strip, semi-quantitativ e on 2018-08-05 Protein Test 2+ (*) Via [facility] strip ([facility] ([id number]) urine ph measurement by test strip on 2018-08-05 pH Test strip 6 [pH] (no code) 4.6 - 8 [pH] Via [facility] ([facility] ([id number]) urine nitrite detection by test strip on 2018-08-05 Nitrite Test no information (no code) Via [facility] strip ([facility] ([id number]) urine ketones detection by automated test strip on 2018-08-05 Ketones 2+ (*) Via [facility] Automated test Hospital strip ([facility] ([id number]) urine glucose detection by automated test strip on 2018-08-05 Glucose no information (no code) Via [facility] Automated test Hospital strip Ql (U) [place] ([id number]) urine color determination on 2018-08-05 Color Nom (U) YELLOW (no code) Via [facility] ([id number]) urine clarity determination on 2018-08-05 Clarity Nom (U) VERY CLOUDY (*) Via [facility] ([id number]) squamous epithelial cells detection in urine sediment by light microscopy on 2018-08-05 Epithelial no information (*) Via [facility] cells.squamous Hospital LM Ql (Urine [place] sed) ([id number]) specific gravity of urine by test strip on 2018-08-05 Specific gravity 1.025 (*) [facility] ([id number][facility] mucus detection in urine sediment by light microscopy on 2018-08-05 Mucus LM Ql LARGE (*) Via [facility] (Urine sed) [facility] ([id number]) leukocyte esterase on 2018-08-05 Leukocyte 3+ (*) Via [facility] esterase Test Hospital strip Ql (U) [place] ([id number]) erythrocytes detection in urine sediment by light microscopy on 2018-08-05 RBC LM Ql (Urine 3+ (*) Via [facility]) [facility] ([id number]) crystals detection in urine sediment by light microscopy on 2018-08-05 Crystals LM Ql NONE (no code) Via [facility] (Urine sed) [facility] ([id number]) complete urinalysis with reflex to culture on 2018-08-05 Urinalysis YES (no code) Via [facility] Reflex Culture [place] panel - Urine ([id number]) casts detection in urine sediment by light microscopy on 2018-08-05 Casts LM Ql NONE (no code) Via [facility] (Urine sed) [facility] ([id number]) bacterial urine culture on 2018-08-05 Bacteria Organism: (no code) Via [facility] identified Cx Escherichia coli Hospital Nom (U) [place] ([id number]) bacteria detection in urine sediment by light microscopy on 2018-08-05 Bacteria LM Ql FEW (*) Via [facility] (Urine sed) [facility] ([id number]) automated urine sediment leukocyte count by microscopy (number/high power field) on 2018-08-05 WBC LM.HPF no information (*) Via [facility] #/area (Urine Hospital sed) [place] ([id number]) automated urine sediment erythrocyte count by microscopy (number/high power field) on 2018-08-05 RBC LM.HPF no information (*) Via [facility]/area (Urine Hospital sed) [place] ([id number]) streptococcus pyogenes antigen detection on 2018-06-23 S. pyogenes Ag no information (no code) Via [facility] (Throat) [facility] ([id number]) urine urobilinogen measurement by automated test strip (mass/volume) on 2018-05-17 Urine, NORMAL (no code) Via [facility] urobilinogen [facility] ([id number]) urine total bilirubin detection by test strip on 2018-05-17 Urine, bilirubin no information (no code) Via [facility] ([id number]) urine protein assay by test strip, semi-quantitativ e on 2018-05-17 Urine, protein 1+ (*) Via [facility] ([id number]) urine ph measurement by test strip on 2018-05-17 Urine, pH 8 [pH] (no code) 4.6 - 8 [pH] Via [facility] ([id number]) urine nitrite detection by test strip on 2018-05-17 Urine, nitrite no information (no code) Via [facility] ([id number]) urine ketones detection by automated test strip on 2018-05-17 Urine, ketones no information (no code) Via [facility] ([id number]) urine glucose detection by automated test strip on 2018-05-17 Urine, glucose no information (no code) Via [facility] ([id number]) urine color determination on 2018-05-17 Urine, color YELLOW (no code) Via [facility] ([id number]) urine clarity determination on 2018-05-17 Urine, clarity SLIGHTLY CLOUDY (no code) Via [facility] ([id number]) squamous epithelial cells detection in urine sediment by light microscopy on 2018-05-17 Urine, squamous no information (*) Via [facility] cells [facility] in sediment [place] ([id number]) specific gravity of urine by test strip on 2018-05-17 Urine, specific 1.015 (*) Via [facility] gravity [facility] (62501) mucus detection in urine sediment by light microscopy on 2018-05-17 Urine, mucus no information (no code) Via [facility] in [facility] sediment [place] ([id number]) leukocyte esterase on 2018-05-17 Urine, leukocyte 2+ (*) Via [facility] esterase [facility] presence [place] ([id number]) erythrocytes detection in urine sediment by light microscopy on 2018-05-17 Urine, no information (no code) Via [facility] erythrocytes [facility] presence [place] ([id number]) crystals detection in urine sediment by light microscopy on 2018-05-17 Urine, crystals NONE (no code) Via [facility] presence in [facility] sediment [place] ([id number]) complete urinalysis with reflex to culture on 2018-05-17 Complete YES (no code) Via [facility] urinalysis with Hospital reflex to [place] culture ([id number]) casts detection in urine sediment by light microscopy on 2018-05-17 Urine, casts in NONE (no code) Via [facility] sediment [facility] ([id number]) bacterial urine culture on 2018-05-17 Urine culture, Organism: (no code) Via [facility] bacteria Escherichia coli [facility] ([id number]) bacteria detection in urine sediment by light microscopy on 2018-05-17 Urine, bacteria MODERATE (*) Via [facility] in sediment [facility] ([id number]) automated urine sediment leukocyte count by microscopy (number/high power field) on 2018-05-17 Urine, no information (*) Via [facility] leukocytes in [facility][id number][facility] urine sediment erythrocyte count by microscopy (number/high power field) on 2018-05-17 Urine, NONE (no code) Via [facility] erythrocytes in [facility] sediment by [facility] ([id number]) venous blood hemoglobin measurement (mass/volume) on 2018-04-26 Hemoglobin (HGB) 12.9 g/dL (no code) 12.1 - 17.2 g/dL Via [facility] ([id number]) serum or plasma urea nitrogen/creatin ine mass ratio on 2018-04-26 BUN/Creatinine 20 mg/mg (no code) 6 - 22 mg/mg Via [facility] (93339) serum or plasma urea nitrogen measurement (mass/volume) on 2018-04-26 Urea nitrogen 16 mg/dL (no code) 7 - 20 mg/dL [facility] ([id number]) serum or plasma total bilirubin measurement (mass/volume) on 2018-04-26 Bilirubin 0.6 mg/dL (no code) 0.1 - 1.2 mg/dL Via [facility] (total) [facility] ([id number]) serum or plasma sodium measurement (moles/volume) on 2018-04-26 Sodium 141 mmol/L (no code) 135 - 145 mmol/L Via [facility] ([id number]) serum or plasma protein measurement (mass/volume) on 2018-04-26 Protein 6.9 g/dL (no code) 6.4 - 8.3 g/dL Via [facility] ([id number]) serum or plasma potassium measurement (moles/volume) on 2018-04-26 Potassium 3.8 mmol/L (no code) 3.7 - 5.2 mmol/L Via [facility] ([id number]) serum or plasma glucose measurement (mass/volume) on 2018-04-26 Glucose 69 mg/dL (L) 60 - 125 mg/dL Via [facility] ([id number]) serum or plasma creatinine measurement with calculation of estimated glomerular filtration rate on 2018-04-26 eGFR (non-black) no information (no code) Via [facility] () serum or plasma creatinine measurement (mass/volume) on 2018-04-26 Creatinine 0.82 mg/dL (no code) Via [facility] ([id number]) serum or plasma chloride measurement (moles/volume) on 2018-04-26 Chloride 109 mmol/L (H) 95 - 106 mmol/L Via [facility] (56784) serum or plasma calcium measurement (mass/volume) on 2018-04-26 Calcium 9.3 mg/dL (no code) 8.5 - 10.2 mg/dL Via [facility] ([id number]) serum or plasma c reactive protein measurement (mass/volume) on 2018-04-26 C reactive 0.07 mg/L (no code) 0 - 8 mg/L Via [facility] protein (CRP) [facility] ([id number]) serum or plasma aspartate aminotransferase measurement (enzymatic activity/volume) on 2018-04-26 Aspartate 13 U/L (no code) 10 - 34 U/L Via [facility] aminotransferase [facility] (AST) [place] ([id number]) serum or plasma anion gap determination (moles/volume) on 2018-04-26 Anion gap 8 mmol/L (no code) 3 - 11 mmol/L Via [facility] ([id number]) serum or plasma alkaline phosphatase measurement (enzymatic activity/volume) on 2018-04-26 Alkaline 40 U/L (no code) 44 - 147 U/L Via [facility] phosphatase [facility] (ALP) [place] ([id number]) serum or plasma albumin measurement (mass/volume) on 2018-04-26 Albumin 4.3 g/dL (no code) 3.4 - 5.4 g/dL Via [facility] ([id number]) serum or plasma alanine aminotransferase measurement (enzymatic activity/volume) on 2018-04-26 Alanine 12 U/L (no code) 4 - 40 U/L Via [facility] aminotransferase [facility] (ALT) [place] ([id number]) carbon dioxide on 2018-04-26 CO2 24 mmol/L (no code) 23 - 29 mmol/L Via [facility] ([id number]) blood neutrophils automated count (number/volume) on 2018-04-26 Neutrophils 4.2 10*3/uL (no code) 1.7 - 7 10*3/uL Via [facility] ([id number]) blood monocytes/100 leukocytes on 2018-04-26 Monocytes/100 9 % (no code) 2 - 8 % Via [facility] leukocytes [facility] ([id number]) blood monocytes automated count (number/volume) on 2018-04-26 Monocytes 0.7 10*3/uL (no code) 0.3 - 0.9 Via [facility] 10*3/uL [facility] ([id number]) blood lymphocytes automated count (number/volume) on 2018-04-26 Lymphocytes 2.0 10*3/uL (no code) 0.9 - 2.9 Via [facility] 10*3/uL [facility] ([id number]) blood leukocytes automated count (number/volume) on 2018-04-26 WBC (Leukocytes) 7.1 10*3/uL (no code) 3.5 - 10.5 Via [facility] 10*3/uL [facility] (59294) blood hematocrit (volume fraction) on 2018-04-26 Hematocrit (HCT) 38 % (no code) 36.1 - 50.3 % Via [facility] ([id number]) blood erythrocytes automated count (number/volume) on 2018-04-26 Erythrocytes 4.65 10*6/uL (no code) 4.2 - 6.1 Via [facility] (RBC) 10*6/uL [facility] ([id number]) automated erythrocyte mean corpuscular volume on 2018-04-26 MCV 82 fL (no code) 80 - 100 fL Via [facility] ([id number]) automated erythrocyte mean corpuscular hemoglobin concentration measurement (mass/volume) on 2018-04-26 MCHC 34 g/dL (no code) 32 - 36 g/dL Via [facility] ([id number]) automated erythrocyte mean corpuscular hemoglobin (mass per erythrocyte) on 2018-04-26 MCH 28 pg (no code) 27 - 31 pg Via [facility] ([id number]) automated erythrocyte distribution width ratio on 2018-04-26 RDW-CA 13.8 % (no code) 11.6 - 14.6 % Via [facility] ([id number]) automated eosinophil count on 2018-04-26 Eosinophils 0.2 10*3/uL (no code) 0.05 - 0.5 Via [facility] 10*3/uL [facility] ([id number]) automated blood platelet mean volume measurement on 2018-04-26 Platelet mean 11.3 fL (H) 7.2 - 11.7 fL Via [facility] (PMV) [facility] ([id number]) automated blood platelet count (count/volume) on 2018-04-26 Platelets 236 10*3/uL (no code) 150 - 450 Via [facility] 10*3/uL [facility] ([id number]) automated blood neutrophils/100 leukocytes on 2018-04-26 Neutrophils/100 59 % (no code) 40 - 60 % Via [facility] (48563) automated blood lymphocytes/100 leukocytes on 2018-04-26 Lymphocytes/100 28 % (no code) 20 - 40 % Via [facility] leukocytes [facility] ([id number]) automated blood eosinophils/100 leukocytes on 2018-04-26 Eosinophils/100 3 % (no code) 1 - 4 % Via [facility] ([id number]) automated blood basophils/100 leukocytes on 2018-04-26 Basophils/100 0 % (no code) 0.5 - 1 % Via [facility] (25186) automated blood basophil count (count/volume) on 2018-04-26 Basophils 0.0 10*3/uL (no code) 0 - 0.3 10*3/uL Via [facility] (56529) venous blood hemoglobin measurement (mass/volume) on 2018-04-19 Hemoglobin (HGB) 12.3 g/dL (no code) 12 - 18 g/dL Via [facility] ([id number]) urine urobilinogen measurement by automated test strip (mass/volume) on 2018-04-19 Urine, NORMAL (no code) [facility][id number][facility] urine total bilirubin detection by test strip on 2018-04-19 Urine, bilirubin no information (no code) Via [facility] ([id number]) urine protein assay by test strip, semi-quantitativ e on 2018-04-19 Urine, protein no information (no code) Via [facility] (99834) urine ph measurement by test strip on 2018-04-19 Urine, pH 7 [pH] (no code) 4.6 - 8 [pH] Via [facility] ([id number]) urine nitrite detection by test strip on 2018-04-19 Urine, nitrite no information (no code) Via [facility] (05255) urine ketones detection by automated test strip on 2018-04-19 Urine, ketones no information (no code) Via [facility] ([id number]) urine glucose detection by automated test strip on 2018-04-19 Urine, glucose no information (no code) Via [facility] (64501) urine color determination on 2018-04-19 Urine, color YELLOW (no code) Via [facility] ([id number]) urine clarity determination on 2018-04-19 Urine, clarity CLEAR (no code) Via [facility] ([id number]) thyroid stimulating hormone on 2018-04-19 Thyroid 0.54 m[IU]/L (no code) 0.4 - 4 m[IU]/L Via [facility] stimulating [facility] hormone (TSH) [place] ([id number]) specific gravity of urine by test strip on 2018-04-19 Urine, specific 1.015 (*) Via [facility] gravity [facility] (72755) serum or plasma urea nitrogen/creatin ine mass ratio on 2018-04-19 BUN/Creatinine 17 mg/mg (no code) 10 - 20 mg/mg Via [facility] sti Ratio [facility] (16813) serum or plasma urea nitrogen measurement (mass/volume) on 2018-04-19 Urea nitrogen 12 mg/dL (no code) 7 - 20 mg/dL [facility] ([id number]) serum or plasma total bilirubin measurement (mass/volume) on 2018-04-19 Bilirubin 0.3 mg/dL (no code) 0.3 - 1.9 mg/dL Via [facility] (total) [facility] ([id number]) serum or plasma thyroxine (t4) free measurement (mass/volume) on 2018-04-19 Thyroxine (T4) 1.08 ng/dL (no code) 0.8 - 2.8 ng/dL Via [facility] (75034) serum or plasma sodium measurement (moles/volume) on 2018-04-19 Sodium 140 mmol/L (no code) 135 - 147 mmol/L Via [facility] ([id number]) serum or plasma protein measurement (mass/volume) on 2018-04-19 Protein 6.8 g/dL (no code) 6.4 - 8.3 g/dL Via [facility] ([id number]) serum or plasma potassium measurement (moles/volume) on 2018-04-19 Potassium 3.7 mmol/L (no code) 3.5 - 5.1 mmol/L Via [facility] ([id number]) serum or plasma glucose measurement (mass/volume) on 2018-04-19 Glucose 85 mg/dL (no code) 60 - 125 mg/dL Via [facility] ([id number]) serum or plasma creatinine measurement with calculation of estimated glomerular filtration rate on 2018-04-19 eGFR (non-black) no information (no code) Via [facility] (54485) serum or plasma creatinine measurement (mass/volume) on 2018-04-19 Creatinine 0.72 mg/dL (no code) Via [facility] ([id number]) serum or plasma chloride measurement (moles/volume) on 2018-04-19 Chloride 108 mmol/L (H) 95 - 106 mmol/L Via [facility] ([id number]) serum or plasma calcium measurement (mass/volume) on 2018-04-19 Calcium 9.1 mg/dL (no code) 9 - 11 mg/dL Via [facility] ([id number]) serum or plasma aspartate aminotransferase measurement (enzymatic activity/volume) on 2018-04-19 Aspartate 12 U/L (no code) 10 - 34 U/L [facility] [place] ([id number]) serum or plasma anion gap determination (moles/volume) on 2018-04-19 Anion gap 10 mmol/L (no code) 3 - 11 mmol/L Via [facility] ([id number]) serum or plasma alkaline phosphatase measurement (enzymatic activity/volume) on 2018-04-19 Alkaline 40 U/L (no code) 44 - 147 U/L Via [facility] phosphatase [facility] (ALP) [place] ([id number]) serum or plasma albumin measurement (mass/volume) on 2018-04-19 Albumin 4.4 g/dL (no code) 3.5 - 5.5 g/dL Via [facility] ([id number]) serum or plasma alanine aminotransferase measurement (enzymatic activity/volume) on 2018-04-19 Alanine 12 U/L (no code) 10 - 40 U/L Via [facility] aminotransferase [facility] (ALT) [place] ([id number]) mucus detection in urine sediment by light microscopy on 2018-04-19 Urine, mucus LARGE (*) Via [facility] in [facility] (23784) leukocyte esterase on 2018-04-19 Urine, leukocyte 3+ (*) Via [facility] esterase [facility] (70570) erythrocytes detection in urine sediment by light microscopy on 2018-04-19 Urine, no information (no code) Via [facility] erythrocytes [facility] ([id number]) crystals detection in urine sediment by light microscopy on 2018-04-19 Urine, crystals NONE (no code) Via [facility] in [facility] ([id number]) complete urinalysis with reflex to culture on 2018-04-19 Complete YES (no code) Via [facility] urinalysis with Hospital reflex to [place] culture ([id number]) casts detection in urine sediment by light microscopy on 2018-04-19 Urine, casts in NONE (no code) Via [facility] ([id number]) carbon dioxide on 2018-04-19 CO2 22 mmol/L (no code) 23 - 29 mmol/L [facility] (59696) blood neutrophils automated count (number/volume) on 2018-04-19 Neutrophils 3.5 10*3/uL (no code) 1.5 - 7.8 Via [facility] 10*3/uL [facility] ([id number]) blood monocytes/100 leukocytes on 2018-04-19 Monocytes/100 12 % (no code) 2 - 8 % Via [facility] leukocytes [facility] ([id number]) blood monocytes automated count (number/volume) on 2018-04-19 Monocytes 0.8 10*3/uL (no code) 0.2 - 1.1 Via [facility] 10*3/uL [facility] ([id number]) blood lymphocytes automated count (number/volume) on 2018-04-19 Lymphocytes 2.1 10*3/uL (no code) 0.85 - 4.1 Via [facility] 10*3/uL [facility] ([id number]) blood leukocytes automated count (number/volume) on 2018-04-19 WBC (Leukocytes) 6.6 10*3/uL (no code) 3.8 - 10.8 Via [facility] 10*3/uL [facility] ([id number]) blood hematocrit (volume fraction) on 2018-04-19 Hematocrit (HCT) 37 % (no code) 39 - 51 % Via [facility] ([id number]) blood erythrocytes automated count (number/volume) on 2018-04-19 Erythrocytes 4.47 10*6/uL (no code) 4.2 - 6.1 Via [facility] (RBC) 10*6/uL [facility] ([id number]) bacterial urine culture on 2018-04-19 Urine culture, Organism: SEE (no code) [facility] bacteria COMMENTS [facility] ([id number]) Urine culture, Organism: (no code) [facility] bacteria Gardnerella [facility] ([id number]) bacteria detection in urine sediment by light microscopy on 2018-04-19 Urine, bacteria MODERATE (*) [facility] in sediment [facility] ([id number]) automated urine sediment leukocyte count by microscopy (number/high power field) on 2018-04-19 Urine, no information (no code) [facility][id number][facility] sediment erythrocyte count by microscopy (number/high power field) on 2018-04-19 Urine, NONE (no code) [facility] erythrocytes in Hospital sediment by [facility] ([id number]) automated erythrocyte mean corpuscular volume on 2018-04-19 MCV 82 fL (no code) 80 - 100 fL [facility] ([id number]) automated erythrocyte mean corpuscular hemoglobin concentration measurement (mass/volume) on 2018-04-19 MCHC 34 g/dL (no code) 32 - 36 g/dL [facility] ([id number]) automated erythrocyte mean corpuscular hemoglobin (mass per erythrocyte) on 2018-04-19 MCH 28 pg (no code) 27 - 31 pg [facility] ([id number]) automated erythrocyte distribution width ratio on 2018-04-19 RDW-CA 14.1 % (no code) 11 - 15 % [facility] ([id number]) automated eosinophil count on 2018-04-19 Eosinophils 0.2 10*3/uL (no code) 0.05 - 1.5 [facility] 10*3/uL [facility] ([id number]) automated blood platelet mean volume measurement on 2018-04-19 Platelet mean 10.9 fL (H) 7.2 - 11.7 fL [facility] (PMV) [facility] ([id number]) automated blood platelet count (count/volume) on 2018-04-19 Platelets 249 10*3/uL (no code) 150 - 400 [facility] 10*3/uL [facility] ([id number]) automated blood neutrophils/100 leukocytes on 2018-04-19 Neutrophils/100 54 % (no code) 40 - 60 % [facility] leukocytes [facility] ([id number]) automated blood lymphocytes/100 leukocytes on 2018-04-19 Lymphocytes/100 32 % (no code) 20 - 40 % [facility] leukocytes [facility] ([id number]) automated blood eosinophils/100 leukocytes on 2018-04-19 Eosinophils/100 2 % (no code) 1 - 4 % [facility] ([id number]) automated blood basophils/100 leukocytes on 2018-04-19 Basophils/100 0 % (no code) 0.5 - 1 % [facility] ([id number]) automated blood basophil count (count/volume) on 2018-04-19 Basophils 0.0 10*3/uL (no code) 0 - 0.2 10*3/uL [facility] ([id number]) urine urobilinogen measurement by automated test strip (mass/volume) on 2018-03-14 Urine, NORMAL (no code) [facility] urobilinogen [facility] ([id number]) urine total bilirubin detection by test strip on 2018-03-14 Urine, bilirubin no information (no code) [facility] presence [facility] ([id number]) urine protein assay by test strip, semi-quantitativ e on 2018-03-14 Urine, protein 2+ (*) [facility] ([id number]) urine ph measurement by test strip on 2018-03-14 Urine, pH 6 [pH] (no code) 4.6 - 8 [pH] [facility] ([id number]) urine nitrite detection by test strip on 2018-03-14 Urine, nitrite no information (no code) [facility] ([id number]) urine ketones detection by automated test strip on 2018-03-14 Urine, ketones no information (no code) [facility] ([id number]) urine glucose detection by automated test strip on 2018-03-14 Urine, glucose no information (no code) [facility] ([id number]) urine color determination on 2018-03-14 Urine, color YELLOW (no code) [facility] ([id number]) urine clarity determination on 2018-03-14 Urine, clarity SLIGHTLY CLOUDY (no code) [facility] ([id number]) squamous epithelial cells detection in urine sediment by light microscopy on 2018-03-14 Urine, squamous no information (*) [facility] cells [facility] in [facility] ([id number]) specific gravity of urine by test strip on 2018-03-14 Urine, specific 1.025 (*) [facility] gravity [facility] ([id number]) mucus detection in urine sediment by light microscopy on 2018-03-14 Urine, mucus MODERATE (*) [facility] ([id number]) leukocyte esterase on 2018-03-14 Urine, leukocyte 3+ (*) [facility] esterase [facility] (68116) erythrocytes detection in urine sediment by light microscopy on 2018-03-14 Urine, 1+ (*) [facility] erythrocytes [facility] (87337) crystals detection in urine sediment by light microscopy on 2018-03-14 Urine, crystals NONE (no code) [facility] in [facility] ([id number]) complete urinalysis with reflex to culture on 2018-03-14 Complete YES (no code) [facility] urinalysis with Hospital reflex to [place] culture ([id number]) casts detection in urine sediment by light microscopy on 2018-03-14 Urine, casts in NONE (no code) [facility] ([id number]) bacteria detection in urine sediment by light microscopy on 2018-03-14 Urine, bacteria MODERATE (*) [facility] in sediment [facility] ([id number]) automated urine sediment leukocyte count by microscopy (number/high power field) on 2018-03-14 Urine, TNTC (*) [facility][id number][facility] automated urine sediment erythrocyte count by microscopy (number/high power field) on 2018-03-14 Urine, no information (no code) [facility] erythrocytes in Hospital sediment by [facility] ([id number]) No panel information on 2018-01-03 Exp date no information (no code) [facility] ([id number]) No panel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
--- OUTSIDE RECORDS SUMMARY | 2020-01-20 19:55 | XMS REPORT ---
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 Name Role Phone NTAE MEI Unavailable PROBLEMS Type Condition ICD9-CM Code [id number] Code Onset Dates Condition S tatus SNOMED Code Problem Normal in first trimester Z34.91 Active 34569169 Problem Normal in second trimester Z34.92 Active 58683223 Problem Adjustment disorder with anxiety F43.22 Active 77966151 Problem Gender dysphoria F64.9 Active 934 80265 Problem Bipolar 1 disorder, manic, mild F31.11 Active 51446034 Problem Borderline personality disorder F60.3 Active 36820717 Problem Adjustment disorder with depressed mood F43.21 Active 927823477 Problem Mood disorder F39 Active 146537 05 Problem Anxiety F41.9 Active 96567538 Problem Seasonal allergies J30.2 Active 4 05595336 Problem Missed period N92.6 Active 438434 00 ALLERGIES No Information ENCOUNTERS Encounter Location Date Diagnosis [facility] [address] [address] Oct, [facility] [address] [address] Jun, Mood disorder F39 and Borderline persona lity disorder F60.3 [facility] [id number] [place] [address] Jun, Mood disorder F39 [facility] [address] [address] May, [facility] [address] [address] May, control counseling Z30.09 and Enco unter for Depo-Provera contraception Z30.42 [facility] [address] [place] [id number] [place] [address] Apr, Lower abdominal pain R10.30 [place] [address] [address] Nov, Mood disorder F39 and Gender dysphoria F 64.9 [place] [address] [address] Jul, Missed period N92.6 [place] [address] [address] Jul, Encounter for test, result unk nown Z32.00 [place] [address] [address] Jul, Hand pain, right M79.641 [facility] [address] May, Allergic rhinitis, unspecifi ed seasonality, unspecified trigger J30.9 [place] [address] [address] May, [place] [address] [address] Apr, Mood disorder F39 [place] [address] [address] Apr, Syncope, unspecified syncope type R55 an d Dizziness R42 [place] [address] [address] 14 Mar, 2018 Adjustment disorder with depressed mood F43.21 and Anxiety F41.9 [facility] [address] [place] [address] February, Seasonal allergies J30.2 [place] [address] [address] February, [facility] [address] [place] [address] Dec, Seasonal allergic rhinitis, unspecified trigger J30.2 and Sore throat J02.9 [facility] [address] [address] Oct, Mood disorder F39 [place] [address] [address] Oct, Mood disorder F39 [facility] [address] [address] Sep, Adjustment disorder with depressed mood F43.21 ; Screening cholesterol level Z13.220 and Screening for diabetes mellitus Z13.1 [place] [address] [address] Sep, Adjustment disorder with anxiety F43.22 and Adjustment disorder with depressed mood F43.21 [facility] [address] [address] 22 Aug, 2017 Pharyngitis due to other org anism J02.8 [facility] [address] [address] 10 Aug, 2017 Sore throat J02.9 and Acute nasopharyngitis (common cold) J00 [facility] [address] [address] 19 Mar, 2017 Acute nasopharyngitis J00 [place] [address] [address] 07 Mar, 2017 Adjustment disorder with anxiety F43.22 ; Adjustment disorder with depressed mood F43.21 and Bipolar 1 disorder, manic, mild F31.11 [place] [address] [address] Mar, [place] [address] [address] 08 Nov, 2016 39 weeks gestation of Z3A.39 [place] [address] [address] Nov, care in third trimester Z34.93 [place] [address] [id number] [place] [address] Oct, Normal in third trimester Z34. 93 [facility] [id number] [place] [address] Oct, [facility] [id number] [place] [address] Oct, Third trimester at less than 3 6 weeks Z33.1 [facility] [id number] [place] [address] Oct, [facility] [address] [id number] [id number] Oct, [place] [id number] [place] [address] Oct, Normal in third trimester Z34. 93 [place] [id number] [place] [address] Sep, Normal in third trimester Z34. 93 [facility] [id number] [place] [address] Sep, Third trimester at less than 3 6 weeks Z33.1 and Encounter for immunization Z23 [place] [id number] [place] [address] 23 Aug, 2016 Adjustment disorder with anxiety F43.22 and Adjustment disorder with depressed mood F43.21 [place] [id number] [place] [address] Aug, Abnormal glucose tolerance test in pregn gianfranco O99.810 [facility] [id number] [place] [address] Aug, [place] [address] [address] Aug, Normal in second trimester Z34 .92 [facility] [address] [facility] [id number] [address] [place] [address] Aug, Acute upper respiratory infe ction, unspecified J06.9 and Other viral agents as the cause of diseases classified elsewhere B97.89 [facility] [address] [address] Jul, Adjustment disorder with depressed mood F43.21 and Bipolar 1 disorder, manic, mild F31.11 [facility] [address] [address] Jul, Bipolar 1 disorder, manic, mild F31.11 ; Adjustment disorder with anxiety F43.22 and Adjustment disorder with depressed mood F43.21 [facility] [address] [address] 12 Jul, 2016 Normal in second trimester Z34 .92 [facility] [address] [facility] [id number] [address] [place] [address] Jul, Contact dermatitis, unspecif ied contact dermatitis type, unspecified trigger L25.9 [place] [address] [address] Jul, Adjustment disorder with depressed mood F43.21 ; Adjustment disorder with anxiety F43.22 and Bipolar 1 disorder, manic, mild F31.11 [place] [address] [address] Jul, Adjustment disorder with depressed mood F43.21 and Bipolar 1 disorder, manic, mild F31.11 [facility] [address] [address] Jun, Adjustment disorder with depressed mood F43.21 and Bipolar 1 disorder, manic, mild F31.11 [facility] [address] [address] Jun, Adjustment disorder with depressed mood F43.21 ; Bipolar 1 disorder, manic, mild F31.11 and Anxiety, generalized F41.1 [place] [address] [address] Jun, Normal in second trimester Z34 .92 ; 18 weeks gestation of Z3A.18 and Encounter for immunization Z23 [place] [address] [address] 07 Jun, 2016 Normal in first trimester Z34. 91 [place] [address] [address] 24 May, 2016 care in second trimester Z34.92 [place] [address] [address] 16 May, 2016 [place] [address] [address] May, [place] [address] [address] May, Major depressive disorder, recurrent, mo derate F33.[address] [address] 10 May, 2016 Normal in first trimester Z34. 91 ; Pap smear for cervical cancer screening Z12.4 ; Screen for STD (sexually transmitted disease) Z11.3 and 12 weeks gestation of Z3A.[address] [address] 08 May, 2016 12 weeks gestation of Z3A.12 ; Unspecified abdominal pain R10.9 and Other specified related conditions, unspecified trimester O26.899 [place] [address] [address] Apr, [address] [address] Apr, [place] [address] [address] February, [address] [address] February, Bipolar 1 disorder, manic, mild F31.11 a nd Adjustment disorder with depressed mood F43.[address] [address] Dec, Major depressive disorder, single episod e, moderate F32.1 ; Adjustment disorder with depressed mood F43.21 and Bipolar 1 disorder, manic, mild F31.11 [place] [address] [address] Dec, Adjustment disorder with depressed mood F43.21 ; Major depressive disorder, single episode, moderate F32.1 and Bipolar 1 disorder, manic, mild F31.11 [place] [address] [address] Dec, Right hand pain M79.641 [place] [address] [address] Dec, Major depressive disorder, single episod e, moderate F32.1 and Adjustment disorder with depressed mood F43.21 [place] [address] [address] Nov, Major depressive disorder, single episod e, moderate F32.1 [place] [address] [address] Nov, Adjustment disorder with depressed mood F43.21 ; Bipolar 1 disorder, manic, mild F31.11 and Adjustment disorder with anxiety F43.22 [place] [address] [address] Oct, [place] [address] [address] Oct, Encounter for counseling regarding contr aception Z30.9 ; Initiation of OCP (BCP) Z30.011 ; Routine screening for STI (sexually transmitted infection) Z11.3 and Dysmenorrhea N94.6 [place] [address] [address] Sep, Acute upper respiratory infection, unspe cified J06.9 ; Other viral agents as the cause of diseases classified elsewhere B97.89 and Post-nasal drip R09.[address] [address] Aug, Depressive disorder, not elsewhere class ified 311 [facility] [id number] [place] [address] Jul, Depression, major, recurrent, moderate F 33.1 [facility] [id number] [place] [address] Jun, Major depressive disorder, recurrent epi sode, moderate 296.32 [facility] [id number] [place] [address] Mar, Major depression, recurrent 296.30 [facility] [id number] [place] [address] Jan, [facility] [address] [address] Jan, [facility] [id number] [place] [address] Dec, [facility] [id number] [place] [address] Dec, [facility] [id number] [place] [address] Nov, [facility] [address] [address] Nov, [facility] [id number] [place] [address] Oct, [facility] [id number] [place] [address] Oct, [facility] [id number] [place] [address] Sep, [facility] [id number] [place] [address] Sep, [facility] [id number] [place] [address] Sep, [facility] [id number] [place] [address] Sep, [facility] [address] [place] [address] Sep, [facility] [address] [id number] [place] [address] Sep, [facility] [address] [id number] [place] [address] Aug, [facility] [address] [id number] [place] [address] Aug, [facility] [address] [id number] [place] [address] Aug, [facility] [address] [id number] [place] [address] Aug, [facility] [address] [id number] [place] [address] Jul, [facility] [address] [id number] [place] [address] Jul, [facility] [address] [id number] [place] [address] Jul, [facility] [address] [id number] [place] [address] Jul, [facility] [address] [id number] [place] [address] Jun, [facility] [address] [id number] [place] [address] Jun, [facility] [address] [id number] [place] [address] Jun, [facility] [address] [id number] [place] [address] Jun, [facility] [id number] [place] [address] Apr, [facility] [address] [id number] [place] [address] Apr, [facility] [address] [id number] [place] [address] Mar, [facility] [address] [id number] [place] [address] Mar, [facility] [address] [id number] [place] [address] Mar, [facility] [address] [id number] [place] [address] Mar, [facility] [address] [id number] [place] [address] February, [facility] [address] [id number] [place] [address] February, [facility] [address] [id number] [place] [address] February, [facility] [address] [id number] [place] [address] February, [facility] [address] [id number] [place] [address] February, [facility] [address] [id number] [place] [address] February, [facility] [address] [id number] [place] [address] February, [facility] [address] [id number] [place] [address] Jan, [facility] [address] [id number] [place] [address] Jan, [facility] [address] [id number] [place] [address] Jan, [facility] [address] [id number] [place] [address] Jan, [facility] [address] [id number] [place] [address] Jan, [facility] [address] [id number] [place] [address] Jan, [facility] [address] [id number] [place] [address] 11 Jan, 2014 [facility] [address] [id number] [place] [address] Jan, [facility] [address] [id number] [place] [address] 14 Oct, 2013 [facility] [address] [id number] [place] [address] 14 Oct, 2013 [facility] [address] [id number] [place] [address] Sep, [facility] [address] [facility] [id number] [place] [address] Sep, [facility] [address] [id number] [place] [address] 11 Jun, 2013 [facility] [address] [id number] [place] [address] 04 Jun, 2013 [facility] [address] [id number] [place] [address] 27 Oct, 2012 [facility] [address] [id number] [place] [address] 08 Sep, 2012 [facility] [address] [id number] [place] [address] 08 Sep, 2012 [facility] [address] [id number] [place] [address] 26 Jun, 2011 [facility] [address] [id number] [place] [address] 25 Jun, 2011 [facility] [address] [id number] [place] [address] 24 Jun, 2011 [facility] [address] [id number] [place] [address] 20 Jun, 2011 [facility] [address] [id number] [place] [address] 20 Jun, 2011 [facility] [address] [id number] [place] [address] 05 Jun, 2011 [facility] [address] [id number] [place] [address] Apr, [facility] [address] [id number] [place] [address] Mar, [facility] [address] [id number] [place] [address] Mar, [facility] [id number] [place] [address] Dec, [facility] [id number] [place] [address] Oct, [facility] [address] [id number] [place] [address] Aug, [facility] [id number] [place] [address] Aug, [facility] [id number] [place] [address] Aug, [facility] [id number] [place] [address] Aug, [facility] [id number] [place] [address] Aug, [facility] [id number] [place] [address] 24 Jul, 2011 [facility] [id number] [place] [address] Jul, [facility] [id number] [place] [address] Jun, [facility] [address] [id number] [place] [address] Jul, [facility] [id number] [place] [address] Aug, [facility] [id number] [place] [address] 14 Aug, 2008 [facility] [id number] [place] [address] Oct, IMMUNIZATIONS No Known Immunizations SOCIAL HISTORY Never Assessed REASON FOR VISIT PLAN OF CARE VITAL SIGNS MEDICATIONS Unknown Medications RESULTS No Results PROCEDURES No Known procedures INSTRUCTIONS MEDICATIONS ADMINISTERED No Known Medications MEDICAL (GENERAL) HISTORY Type Description Date Medical History Adjustment disorder with mix ed disturbance of emotions and conduct Medical History Major depressive disorder, recurrent epi sode, moderate (past) Medical History Adjustment disorder with depressed mood (past) Medical History iron deficiency Medical History Bipolar Surgical History 2 natural births Hospitalization History childbirth 01/2014
--- OUTSIDE RECORDS SUMMARY | 2020-01-20 19:55 | XMS REPORT ---
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 Name Role Phone CHANA Smith Unavailable PROBLEMS Type Condition ICD9-CM Code [id number] Code Onset Dates Condition S tatus SNOMED Code Problem Normal in first trimester Z34.91 Active 47074939 Problem Normal in second trimester Z34.92 Active 96246905 Problem Adjustment disorder with anxiety F43.22 Active 99142589 Problem Gender dysphoria F64.9 Active 934 31506 Problem Bipolar 1 disorder, manic, mild F31.11 Active 20768603 Problem Borderline personality disorder F60.3 Active 55582517 Problem Adjustment disorder with depressed mood F43.21 Active 224914397 Problem Mood disorder F39 Active 882998 05 Problem Anxiety F41.9 Active 77728836 Problem Seasonal allergies J30.2 Active 4 50678633 Problem Missed period N92.6 Active 547597 00 ALLERGIES No Information ENCOUNTERS Encounter Location Date Diagnosis [facility] [address] [facility] [id number] [address] [place] [id number] Jan, [facility] [address] [facility] [id number] [address] [place] [address] Jan, [facility] [address] [facility] [id number] [address] [place] [address] Dec, [facility] [address] [facility] [id number] [address] [place] [address] 30 Dec, 2019 Missed period N92.6 [facility] [address] [facility] [id number] [address] [place] [address] 17 Dec, 2019 [facility] [address] [facility] [id number] [address] [place] [address] Dec, Borderline personality disor misael F60.3 and Mood disorder F39 [facility] [address] [facility] [id number] [address] [place] [address] 14 Nov, 2019 Encounter for immunization Z 23 [facility] [address] [facility] [id number] [address] [place] [address] 27 Oct, 2019 [facility] [address] [place] [id number] [address] [place] [address] Jun, Mood disorder F39 and Border line personality disorder F60.3 [facility] [address] [facility] [id number] [address] [place] [address] 03 Jun, 2019 Mood disorder F39 [place] [address] [facility] [id number] [address] [place] [address] May, [facility] [address] [place] [id number] [address] [place] [address] May, control counseling Z30 .09 and Encounter for Depo-Provera contraception Z30.42 [facility] [address] [place] [id number] [address] [place] [address] Apr, Lower abdominal pain R10.30 [place] [address] [place] [id number] [address] [place] [address] 12 Nov, 2018 Mood disorder F39 and Gender dysphoria F64.9 [place] [address] [place] [id number] [address] [place] [address] Jul, Missed period N92.6 [facility] [address] [place] [id number] [address] [place] [address] Jul, Encounter for test , result unknown Z32.00 [place] [address] [facility] [id number] [address] [place] [address] Jul, Hand pain, right M79.641 [facility] [address] [facility] [id number] [address] [place] [address] May, Allergic rhinitis, unspecifi ed seasonality, unspecified trigger J30.9 [facility] [id number] [place] [address] May, [place] [id number] [place] [id number] [address] [place] [address] Apr, Mood disorder F39 [place] [address] [address] Apr, Syncope, unspecified syncope type R55 and Dizziness R42 [place] [address] [address] Mar, Adjustment disorder with dep ressed mood F43.21 and Anxiety F41.9 [facility] [address] [address] February, Seasonal allergies J30.2 [place] [address] [address] February, [facility] [address] [address] Dec, Seasonal allergic rhinitis, unspecified trigger J30.2 and Sore throat J02.9 [place] [address] [address] Oct, Mood disorder F39 [place] [address] [address] Oct, Mood disorder F39 [place] [address] [address] Sep, Adjustment disorder with dep ressed mood F43.21 ; Screening cholesterol level Z13.220 and Screening for diabetes mellitus Z13.1 [place] [address] [address] Sep, Adjustment disorder with anx iety F43.22 and Adjustment disorder with depressed mood F43.21 [facility] [address] [address] Aug, Pharyngitis due to other org anism J02.8 [facility] [address] [place] [id number] [place] [address] 10 Aug, 2017 Sore throat J02.9 and Acute nasopharyngitis (common cold) J00 [facility] [address] [place] [id number] [address] [place] [address] 19 Mar, 2017 Acute nasopharyngitis J00 [facility] [address] [place] [id number] [place] [address] 07 Mar, 2017 Adjustment disorder with anx iety F43.22 ; Adjustment disorder with depressed mood F43.21 and Bipolar 1 disorder, manic, mild F31.11 [facility] [address] [place] [id number] [address] [place] [address] Mar, [place] [address] [address] 08 Nov, 2016 39 weeks gestation of pregna ncy Z3A.39 [place] [address] [address] Nov, care in third trime ster Z34.93 [place] [address] [place] [id number] [address] [place] [address] Oct, Normal in third tr imester Z34.93 [facility] [address] [place] [id number] [address] [place] [address] Oct, [place] [address] [place] [id number] [address] [place] [address] Oct, Third trimester at less than 36 weeks Z33.1 [place] [address] [place] [id number] [address] [place] [address] Oct, [facility] [address] [place] [id number] [place] [id number] Oct, [facility] [address] [place] [address] Oct, Normal in third tr imester Z34.93 [facility] [address] [place] [address] Sep, Normal in third tr imester Z34.93 [facility] [address] [place] [address] Sep, Third trimester at less than 36 weeks Z33.1 and Encounter for immunization Z23 [facility] [address] [place] [address] Aug, Adjustment disorder with anx iety F43.22 and Adjustment disorder with depressed mood F43.21 [place] [address] [address] Aug, Abnormal glucose tolerance t est in O99.810 [facility] [address] [address] Aug, [facility] [address] [address] Aug, Normal in second t rimester Z34.92 [facility] [address] [place] [id number] [address] [place] [address] Aug, Acute upper respiratory infe ction, unspecified J06.9 and Other viral agents as the cause of diseases classified elsewhere B97.89 [facility] [address] [place] [id number] [address] [place] [address] Jul, Adjustment disorder with dep ressed mood F43.21 and Bipolar 1 disorder, manic, mild F31.11 [facility] [address] [place] [id number] [address] [place] [address] Jul, Bipolar 1 disorder, manic, m ild F31.11 ; Adjustment disorder with anxiety F43.22 and Adjustment disorder with depressed mood F43.21 [facility] [address] [place] [address] Jul, Normal in second t rimester Z34.92 [facility] [address] [id number] [address] [place] [address] Jul, Contact dermatitis, unspecif ied contact dermatitis type, unspecified trigger L25.9 [facility] [address] [facility] [id number] [address] [place] [address] 11 Jul, 2016 Adjustment disorder with dep ressed mood F43.21 ; Adjustment disorder with anxiety F43.22 and Bipolar 1 disorder, manic, mild F31.11 [facility] [address] [id number] [address] [place] [address] 04 Jul, 2016 Adjustment disorder with dep ressed mood F43.21 and Bipolar 1 disorder, manic, mild F31.11 [facility] [address] [facility] [id number] [address] [place] [address] 26 Jun, 2016 Adjustment disorder with dep ressed mood F43.21 and Bipolar 1 disorder, manic, mild F31.11 [facility] [address] [facility] [id number] [address] [place] [address] 19 Jun, 2016 Adjustment disorder with dep ressed mood F43.21 ; Bipolar 1 disorder, manic, mild F31.11 and Anxiety, generalized F41.1 [facility] [address] [facility] [id number] [address] [place] [address] 19 Jun, 2016 Normal in second t rimester Z34.92 ; 18 weeks gestation of Z3A.18 and Encounter for immunization Z23 [facility] [address] [id number] [address] [place] [address] 07 Jun, 2016 Normal in first tr imester Z34.91 [facility] [address] [facility] [id number] [address] [place] [address] May, care in second trim carlos Z34.92 [facility] [address] [facility] [id number] [address] [place] [address] May, [facility] [address] [facility] [id number] [address] [place] [address] 16 May, 2016 [place] [address] [facility] [id number] [address] [place] [address] 15 May, 2016 Major depressive disorder, r ecurrent, moderate F33.1 [place] [address] [facility] [id number] [address] [place] [address] 10 May, 2016 Normal in first tr imester Z34.91 ; Pap smear for cervical cancer screening Z12.4 ; Screen for STD (sexually transmitted disease) Z11.3 and 12 weeks gestation of Z3A.12 [place] [address] [facility] [id number] [address] [place] [address] 08 May, 2016 12 weeks gestation of pregna ncy Z3A.12 ; Unspecified abdominal pain R10.9 and Other specified related conditions, unspecified trimester O26.899 [place] [address] [place] [id number] [address] [place] [address] Apr, [place] [address] [facility] [id number] [address] [place] [address] Apr, [place] [address] [place] [id number] [address] [place] [address] February, [place] [address] [facility] [id number] [address] [place] [address] February, Bipolar 1 disorder, manic, m ild F31.11 and Adjustment disorder with depressed mood F43.21 [place] [address] [facility] [id number] [address] [place] [address] Dec, Major depressive disorder, s ken episode, moderate F32.1 ; Adjustment disorder with depressed mood F43.21 and Bipolar 1 disorder, manic, mild F31.11 [place] [address] [facility] [id number] [address] [place] [address] Dec, Adjustment disorder with dep ressed mood F43.21 ; Major depressive disorder, single episode, moderate F32.1 and Bipolar 1 disorder, manic, mild F31.11 [place] [address] [facility] [id number] [address] [place] [address] Dec, Right hand pain M79.641 [place] [address] [facility] [id number] [address] [place] [address] Dec, Major depressive disorder, s ken episode, moderate F32.1 and Adjustment disorder with depressed mood F43.21 [place] [address] [facility] [id number] [address] [place] [address] Nov, Major depressive disorder, s ken episode, moderate F32.1 [place] [address] [facility] [id number] [address] [place] [address] Nov, Adjustment disorder with dep ressed mood F43.21 ; Bipolar 1 disorder, manic, mild F31.11 and Adjustment disorder with anxiety F43.22 [place] [address] [place] [id number] [address] [place] [address] Oct, [place] [address] [place] [id number] [address] [place] [address] Oct, Encounter for counseling reg arding contraception Z30.9 ; Initiation of OCP (BCP) Z30.011 ; Routine screening for STI (sexually transmitted infection) Z11.3 and Dysmenorrhea N94.6 [place] [address] [place] [id number] [address] [place] [address] Sep, Acute upper respiratory infe ction, unspecified J06.9 ; Other viral agents as the cause of diseases classified elsewhere B97.89 and Post-nasal drip R09.82 [place] [address] [place] [id number] [address] [place] [address] Aug, Depressive disorder, not els ewhere classified 311 [place] [address] [place] [id number] [address] [place] [address] Jul, Depression, major, recurrent , moderate F33.1 [place] [address] [place] [id number] [address] [place] [address] Jun, Major depressive disorder, r ecurrent episode, moderate 296.32 [facility] [address] [id number] [address] [place] [address] Mar, Major depression, recurrent 296.30 [facility] [address] [id number] [address] [place] [address] Jan, [facility] [address] [id number] [address] [place] [address] Jan, [facility] [address] [id number] [address] [place] [address] Dec, [facility] [address] [id number] [address] [place] [address] Dec, [facility] [address] [id number] [address] [place] [address] Nov, [facility] [address] [id number] [address] [place] [address] Nov, [facility] [address] [id number] [address] [place] [address] Oct, [facility] [address] [id number] [address] [place] [address] Oct, [facility] [address] [id number] [address] [place] [address] Sep, [facility] [address] [id number] [address] [place] [address] Sep, [facility] [address] [id number] [address] [place] [address] Sep, [facility] [address] [id number] [address] [place] [address] Sep, [facility] [address] [id number] [address] [place] [address] Sep, [facility] [address] [id number] [address] [place] [address] Sep, [facility] [address] [id number] [address] [place] [address], [place] [address] Aug, [facility] [address] [id number] [address] [place] [address], [place] [address] Aug, [facility] [address] [id number] [address] [place] [address], [place] [address] Aug, [facility] [address] [id number] [address] [place] [address], [place] [address] Aug, [facility] [address] [id number] [address] [place] [address], [place] [address] Jul, [facility] [address] [id number] [address] [place] [address], [place] [address] Jul, [facility] [address] [id number] [address] [place] [address], [place] [address] Jul, [facility] [address] [id number] [address] [place] [address], [place] [address] Jul, [facility] [address] [id number] [address] [place] [address], [place] [address] 17 Jun, 2014 [facility] [address] [id number] [address] [place] [address], [place] [address] 17 Jun, 2014 [facility] [address] [id number] [address] [place] [address], [place] [address] 17 Jun, 2014 [facility] [address] [id number] [address] [place] [address], [place] [address] Jun, [facility] [address] [id number] [address] [place] [address], [place] [address] Apr, [facility] [address] [id number] [address] [place] [address], [place] [address] Apr, [facility] [address] [id number] [address] [place] [address], [place] [address] Mar, [facility] [address] [id number] [address] [place] [address], [place] [address] Mar, [facility] [address] [id number] [address] [place] [address], [place] [address] Mar, [facility] [address] [id number] [address] [place] [address], [place] [address] Mar, [facility] [address] [id number] [address] [place] [address], [place] [address] February, [facility] [address] [id number] [address] [place] [address], [place] [address] February, [facility] [address] [id number] [address] [place] [address], [place] [address] February, [facility] [address] [id number] [address] [place] [address], [place] [address] February, [facility] [address] [id number] [address] [place] [address], [place] [address] February, [facility] [address] [id number] [address] [place] [address], [place] [address] February, [facility] [address] [id number] [address] [place] [address], [place] [address] February, [facility] [address] [id number] [address] [place] [address], [place] [address] Jan, [facility] [address] [id number] [address] [place] [address], [place] [address] Jan, [facility] [address] [id number] [address] [place] [address], [place] [address] Jan, [facility] [address] [id number] [address] [place] [address], [place] [address] Jan, [facility] [address] [id number] [address] [place] [address], [place] [address] Jan, [facility] [address] [id number] [address] [place] [address], [place] [address] Jan, [facility] [address] [id number] [address] [place] [address], [place] [address] Jan, [facility] [address] [id number] [address] [place] [address], [place] [address] Jan, [facility] [address] [id number] [address] [place] [address], [place] [address] 14 Oct, 2013 [facility] [address] [id number] [address] [place] [address], [place] [address] Oct, [facility] [address] [id number] [address] [place] [address], [place] [address] Sep, [facility] [address] [id number] [address] [place] [address], [place] [address] Sep, [facility] [address] [id number] [address] [place] [address], [place] [address] 11 Jun, 2013 [facility] [address] [id number] [address] [place] [address], [place] [address] 04 Jun, 2013 [facility] [address] [id number] [address] [place] [address], [place] [address] Oct, [facility] [address] [id number] [address] [place] [address], [place] [address] 08 Sep, 2012 [facility] [address] [id number] [address] [place] [address], [place] [address] 08 Sep, 2012 [facility] [address] [id number] [address] [place] [address], [place] [address] 26 Jun, 2012 [facility] [address] [id number] [address] [place] [address], [place] [address] 25 Jun, 2012 [facility] [address] [id number] [address] [place] [address], [place] [address] 24 Jun, 2012 [facility] [address] [id number] [address] [place] [address], [place] [address] 20 Jun, 2012 [facility] [address] [id number] [address] [place] [address], [place] [address] 20 Jun, 2012 [facility] [address] [id number] [address] [place] [address], [place] [address] 05 Jun, 2012 [facility] [address] [id number] [address] [place] [address], [place] [address] Apr, [facility] [address] [id number] [address] [place] [address], [place] [address] Mar, [facility] [address] [id number] [address] [place] [address], [place] [address] Mar, [facility] [address] [id number] [address] [place] [address], [place] [address] Dec, [facility] [address] [id number] [address] [place] [address], [place] [address] Oct, [facility] [address] [id number] [address] [place] [address], [place] [address] Aug, [facility] [address] [id number] [address] [place] [address], [place] [address] Aug, [facility] [address] [id number] [address] [place] [address], [place] [address] Aug, [facility] [address] [id number] [address] [place] [address], [place] [address] Aug, [facility] [address] [id number] [address] [place] [address], [place] [address] Aug, [facility] [address] [id number] [address] [place] [address], [place] [address] 24 Jul, 2011 [facility] [address] [id number] [address] [place] [address], [place] [address] Jul, [facility] [address] [id number] [address] [place] [address], [place] [address] 15 Jun, 2011 [facility] [address] [id number] [address] [place] [address], [place] [id number] 29 Jul, 2010 [facility] [address] [facility] [id number] [address] [place] [id number] 17 Aug, 2008 [facility] [address] [facility] [id number] [address] [place] [id number] 14 Aug, 2008 [facility] [address] [facility] [id number] [address] [place] [id number] Oct, IMMUNIZATIONS No Known Immunizations SOCIAL HISTORY [...]
--- OUTSIDE RECORDS SUMMARY | 2020-01-20 19:55 | XMS REPORT ---
Author Author Candace MEI Organization [facility] Address [address] [place] [address] Care Team Providers Care Urban Planner Name Role Phone NATE MEI Unavailable PROBLEMS Type Condition ICD9-CM Code GHC40-AY Code Onset Dates Condition S tatus SNOMED Code Problem Normal in first trimester Z34.91 Active 13444987 Problem Normal in second trimester Z34.92 Active 49032511 Problem Adjustment disorder with anxiety F43.22 Active 62798625 Problem Gender dysphoria F64.9 Active 934 01743 Problem Bipolar 1 disorder, manic, mild F31.11 Active 34211560 Problem Borderline personality disorder F60.3 Active 54767404 Problem Adjustment disorder with depressed mood F43.21 Active 895208604 Problem Mood disorder F39 Active 496748 05 Problem Anxiety F41.9 Active 80472246 Problem Seasonal allergies J30.2 Active 4 49358512 Problem Missed period N92.6 Active 019321 00 ALLERGIES No Information ENCOUNTERS Encounter Location Date Diagnosis [facility] [address] [address] Oct, [facility] [address] [address] Jun, Mood disorder F39 and Borderline persona lity disorder F60.3 [facility] [id number] [place] [address] Jun, Mood disorder F39 [facility] [address] [address] May, [facility] [address] [address] May, control counseling Z30.09 and Enco unter for Depo-Provera contraception Z30.42 [facility] [address] [id number] [place] [address] Apr, Lower abdominal pain R10.30 [place] [address] [address] Nov, Mood disorder F39 and Gender dysphoria F 64.9 [place] [address] [address] Jul, Missed period N92.6 [place] [address] [address] Jul, Encounter for test, result unk nown Z32.00 [place] [address] [address] Jul, Hand pain, right M79.641 [facility] [address] May, Allergic rhinitis, unspecifi ed seasonality, unspecified trigger J30.9 [place] [address] [address] May, [place] [address] [address] Apr, Mood disorder F39 [place] [address] [address] Apr, Syncope, unspecified syncope type R55 an d Dizziness R42 [place] [address] [address] 14 Mar, 2018 Adjustment disorder with depressed mood F43.21 and Anxiety F41.9 [facility] [address] [place] [address] February, Seasonal allergies J30.2 [place] [address] [address] February, [facility] [address] [place] [address] Dec, Seasonal allergic rhinitis, unspecified trigger J30.2 and Sore throat J02.9 [facility] [address] [address] Oct, Mood disorder F39 [place] [address] [address] Oct, Mood disorder F39 [facility] [address] [address] Sep, Adjustment disorder with depressed mood F43.21 ; Screening cholesterol level Z13.220 and Screening for diabetes mellitus Z13.1 [place] [address] [address] Sep, Adjustment disorder with anxiety F43.22 and Adjustment disorder with depressed mood F43.21 [facility] [address] [address] 22 Aug, 2017 Pharyngitis due to other org anism J02.8 [facility] [address] [address] 10 Aug, 2017 Sore throat J02.9 and Acute nasopharyngitis (common cold) J00 [facility] [address] [address] 19 Mar, 2017 Acute nasopharyngitis J00 [place] [address] [address] 07 Mar, 2017 Adjustment disorder with anxiety F43.22 ; Adjustment disorder with depressed mood F43.21 and Bipolar 1 disorder, manic, mild F31.11 [place] [address] [address] Mar, [place] [address] [address] 08 Nov, 2016 39 weeks gestation of Z3A.39 [place] [address] [address] Nov, care in third trimester Z34.93 [place] [address] [id number] [place] [address] Oct, Normal in third trimester Z34. 93 [facility] [id number] [place] [address] Oct, [facility] [id number] [place] [address] Oct, Third trimester at less than 3 6 weeks Z33.1 [facility] [id number] [place] [address] Oct, [facility] [address] [id number] [id number] Oct, [place] [id number] [place] [address] Oct, Normal in third trimester Z34. 93 [place] [id number] [place] [address] Sep, Normal in third trimester Z34. 93 [facility] [id number] [place] [address] Sep, Third trimester at less than 3 6 weeks Z33.1 and Encounter for immunization Z23 [place] [id number] [place] [address] 23 Aug, 2016 Adjustment disorder with anxiety F43.22 and Adjustment disorder with depressed mood F43.21 [place] [id number] [place] [address] Aug, Abnormal glucose tolerance test in pregn gianfranco O99.810 [facility] [id number] [place] [address] Aug, [place] [address] [address] Aug, Normal in second trimester Z34 .92 [facility] [address] [facility] [id number] [place] [address] Aug, Acute upper respiratory infe ction, unspecified J06.9 and Other viral agents as the cause of diseases classified elsewhere B97.89 [facility] [address] [address] Jul, Adjustment disorder with depressed mood F43.21 and Bipolar 1 disorder, manic, mild F31.11 [facility] [address] [address] Jul, Bipolar 1 disorder, manic, mild F31.11 ; Adjustment disorder with anxiety F43.22 and Adjustment disorder with depressed mood F43.21 [facility] [address] [address] 12 Jul, 2016 Normal in second trimester Z34 .92 [facility] [address] [facility] [id number] [place] [address] Jul, Contact dermatitis, unspecif ied contact dermatitis type, unspecified trigger L25.9 [place] [address] [address] Jul, Adjustment disorder with depressed mood F43.21 ; Adjustment disorder with anxiety F43.22 and Bipolar 1 disorder, manic, mild F31.11 [place] [address] [address] Jul, Adjustment disorder with depressed mood F43.21 and Bipolar 1 disorder, manic, mild F31.11 [facility] [address] [address] Jun, Adjustment disorder with depressed mood F43.21 and Bipolar 1 disorder, manic, mild F31.11 [facility] [address] [address] Jun, Adjustment disorder with depressed mood F43.21 ; Bipolar 1 disorder, manic, mild F31.11 and Anxiety, generalized F41.1 [place] [address] [address] Jun, Normal in second trimester Z34 .92 ; 18 weeks gestation of Z3A.18 and Encounter for immunization Z23 [place] [address] [address] 07 Jun, 2016 Normal in first trimester Z34. 91 [place] [address] [address] 24 May, 2016 care in second trimester Z34.92 [place] [address] [address] 16 May, 2016 [place] [address] [address] May, [place] [address] [address] May, Major depressive disorder, recurrent, mo derate F33.[address] [address] 10 May, 2016 Normal in first trimester Z34. 91 ; Pap smear for cervical cancer screening Z12.4 ; Screen for STD (sexually transmitted disease) Z11.3 and 12 weeks gestation of Z3A.[address] [address] 08 May, 2016 12 weeks gestation of Z3A.12 ; Unspecified abdominal pain R10.9 and Other specified related conditions, unspecified trimester O26.899 [place] [address] [address] Apr, [address] [address] Apr, [place] [address] [address] February, [address] [address] February, Bipolar 1 disorder, manic, mild F31.11 a nd Adjustment disorder with depressed mood F43.[address] [address] Dec, Major depressive disorder, single episod e, moderate F32.1 ; Adjustment disorder with depressed mood F43.21 and Bipolar 1 disorder, manic, mild F31.11 [place] [address] [address] Dec, Adjustment disorder with depressed mood F43.21 ; Major depressive disorder, single episode, moderate F32.1 and Bipolar 1 disorder, manic, mild F31.11 [place] [address] [address] Dec, Right hand pain M79.641 [place] [address] [address] Dec, Major depressive disorder, single episod e, moderate F32.1 and Adjustment disorder with depressed mood F43.21 [place] [address] [address] Nov, Major depressive disorder, single episod e, moderate F32.1 [place] [address] [address] Nov, Adjustment disorder with depressed mood F43.21 ; Bipolar 1 disorder, manic, mild F31.11 and Adjustment disorder with anxiety F43.22 [place] [address] [address] Oct, [place] [address] [address] Oct, Encounter for counseling regarding contr aception Z30.9 ; Initiation of OCP (BCP) Z30.011 ; Routine screening for STI (sexually transmitted infection) Z11.3 and Dysmenorrhea N94.6 [place] [address] [address] Sep, Acute upper respiratory infection, unspe cified J06.9 ; Other viral agents as the cause of diseases classified elsewhere B97.89 and Post-nasal drip R09.[address] [address] Aug, Depressive disorder, not elsewhere class ified 311 [facility] [id number] [place] [address] Jul, Depression, major, recurrent, moderate F 33.1 [facility] [id number] [place] [address] Jun, Major depressive disorder, recurrent epi sode, moderate 296.32 [facility] [id number] [place] [address] Mar, Major depression, recurrent 296.30 [facility] [id number] [place] [address] Jan, [facility] [address] [address] Jan, [facility] [id number] [place] [address] Dec, [facility] [id number] [place] [address] Dec, [facility] [id number] [place] [address] Nov, [facility] [address] [address] Nov, [facility] [id number] [place] [address] Oct, [facility] [id number] [place] [address] Oct, [facility] [id number] [place] [address] Sep, [facility] [id number] [place] [address] Sep, [facility] [id number] [place] [address] Sep, [facility] [id number] [place] [address] Sep, [facility] [address] [address] [place] [address] Sep, [facility] [address] [id number] [place] [address] Sep, [facility] [address] [id number] [place] [address] Aug, [facility] [address] [id number] [place] [address] Aug, [facility] [address] [id number] [place] [address] Aug, [facility] [address] [id number] [place] [address] Aug, [facility] [address] [id number] [place] [address] Jul, [facility] [address] [id number] [place] [address] Jul, [facility] [address] [id number] [place] [address] Jul, [facility] [address] [id number] [place] [address] Jul, [facility] [address] [id number] [place] [address] Jun, [facility] [address] [id number] [place] [address] Jun, [facility] [address] [id number] [place] [address] Jun, [facility] [address] [id number] [place] [address] Jun, [facility] [id number] [place] [address] Apr, [facility] [address] [id number] [place] [address] Apr, [facility] [address] [id number] [place] [address] Mar, [facility] [address] [id number] [place] [address] Mar, [facility] [address] [id number] [place] [address] Mar, [facility] [address] [id number] [place] [address] Mar, [facility] [address] [id number] [place] [address] February, [facility] [address] [id number] [place] [address] February, [facility] [address] [id number] [place] [address] February, [facility] [address] [id number] [place] [address] February, [facility] [address] [id number] [place] [address] February, [facility] [address] [id number] [place] [address] February, [facility] [address] [id number] [place] [address] February, [facility] [address] [id number] [place] [address] Jan, [facility] [address] [id number] [place] [address] Jan, [facility] [address] [id number] [place] [address] Jan, [facility] [address] [id number] [place] [address] Jan, [facility] [address] [id number] [place] [address] Jan, [facility] [address] [id number] [place] [address] Jan, [facility] [address] [id number] [place] [address] 11 Jan, 2014 [facility] [address] [id number] [place] [address] Jan, [facility] [address] [id number] [place] [address] 14 Oct, 2013 [facility] [address] [id number] [place] [address] 14 Oct, 2013 [facility] [address] [id number] [place] [address] Sep, [facility] [address] [facility] [id number] [place] [address] Sep, [facility] [address] [id number] [place] [address] 11 Jun, 2013 [facility] [address] [id number] [place] [address] 04 Jun, 2013 [facility] [address] [id number] [place] [address] 27 Oct, 2012 [facility] [address] [id number] [place] [address] 08 Sep, 2012 [facility] [address] [id number] [place] [address] 08 Sep, 2012 [facility] [address] [id number] [place] [address] 26 Jun, 2011 [facility] [address] [id number] [place] [address] 25 Jun, 2011 [facility] [address] [id number] [place] [address] 24 Jun, 2011 [facility] [id number] [place] [address] 20 Jun, 2011 [facility] [address] [id number] [place] [address] 20 Jun, 2011 [facility] [address] [id number] [place] [address] 05 Jun, 2011 [facility] [address] [id number] [place] [address] Apr, [facility] [address] [id number] [place] [address] Mar, [facility] [address] [id number] [place] [address] Mar, [facility] [id number] [place] [address] Dec, [facility] [id number] [place] [address] Oct, [facility] [address] [id number] [place] [address] Aug, [facility] [id number] [place] [address] Aug, [facility] [id number] [place] [address] Aug, [facility] [id number] [place] [address] Aug, [facility] [id number] [place] [address] Aug, [facility] [id number] [place] [address] 24 Jul, 2011 [facility] [id number] [place] [address] Jul, [facility] [id number] [place] [address] Jun, [facility] [address] [id number] [place] [address] Jul, [facility] [id number] [place] [address] Aug, [facility] [id number] [place] [address] 14 Aug, 2008 [facility] [id number] [place] [address] Oct, IMMUNIZATIONS No Known Immunizations SOCIAL HISTORY [...]
--- OUTSIDE RECORDS SUMMARY | 2020-01-20 19:55 | XMS REPORT ---
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 Name Role Phone Migration, Doctor Unavailable Unavailable PROBLEMS Type Condition ICD9-CM Code [id number] Code Onset Dates Condition S tatus SNOMED Code Problem Normal in first trimester Z34.91 Active 64387101 Problem Normal in second trimester Z34.92 Active 32186532 Problem Adjustment disorder with anxiety F43.22 Active 58675886 Problem Gender dysphoria F64.9 Active 934 38958 Problem Bipolar 1 disorder, manic, mild F31.11 Active 16358832 Problem Borderline personality disorder F60.3 Active 93190363 Problem Adjustment disorder with depressed mood F43.21 Active 005002078 Problem Mood disorder F39 Active 458863 05 Problem Anxiety F41.9 Active 46833110 Problem Seasonal allergies J30.2 Active 4 56539887 Problem Missed period N92.6 Active 313457 00 ALLERGIES No Information ENCOUNTERS Encounter Location Date Diagnosis [facility] [address] [facility] [id number] [address] [place] [phone] Jan, [facility] [address] [facility] [id number] [address] [place] [phone] Jan, [facility] [address] [facility] [id number] [address] [place] [phone] Dec, [facility] [address] [facility] [id number] [address] [place] [id number] 30 Dec, 2019 Missed period N92.6 [facility] [address] [facility] [id number] [address] [place] [id number] Dec, [facility] [address] [facility] [id number] [address] [place] [id number] Dec, Borderline personality disor misael F60.3 and Mood disorder F39 [facility] [address] [place] [id number] [address] [place] [id number] 14 Nov, 2019 Encounter for immunization Z 23 [facility] [address] [place] [id number] [place] [id number] 27 Oct, 2019 [facility] [address] [place] [id number] [place] [address] 05 Jun, 2019 Mood disorder F39 and Border line personality disorder F60.3 [facility] [address] [address] 03 Jun, 2019 Mood disorder F39 [facility] [address] [address] May, [place] [address] [address] May, control counseling Z30 .09 and Encounter for Depo-Provera contraception Z30.42 [facility] [address] [address] Apr, Lower abdominal pain R10.30 [facility] [address] [address] 12 Nov, 2018 Mood disorder F39 and Gender dysphoria F64.9 [place] [address] [address] Jul, Missed period N92.6 [place] [address] [address] Jul, Encounter for test , result unknown Z32.00 [facility] [address] [place] [id number] [address] [place] [address] Jul, Hand pain, right M79.641 [facility] [address] [place] [id number] [address] [place] [address] May, Allergic rhinitis, unspecifi ed seasonality, unspecified trigger J30.9 [facility] [address] [address] May, [facility] [address] [facility] [id number] [address] [place] [address] Apr, Mood disorder F39 [place] [id number] [facility] [id number] [address] [place] [address] Apr, Syncope, unspecified syncope type R55 and Dizziness R42 [place] [address] [place] [id number] [address] [place] [address] Mar, Adjustment disorder with dep ressed mood F43.21 and Anxiety F41.9 [facility] [place] [id number] [facility] [id number] [place] [address] February, Seasonal allergies J30.2 [place] [address] [place] [id number] [address] [place] [address] February, [facility] [address] [place] [id number] [place] [address] Dec, Seasonal allergic rhinitis, unspecified trigger J30.2 and Sore throat J02.9 [place] [address] [place] [id number] [address] [place] [phone] Oct, Mood disorder F39 [place] [id number] [place] [id number] [address] [place] [address] Oct, Mood disorder F39 [place] [address] [place] [id number] [address] [place] [address] Sep, Adjustment disorder with dep ressed mood F43.21 ; Screening cholesterol level Z13.220 and Screening for diabetes mellitus Z13.1 [place] [address] [facility] [id number] [address] [place] [id number] Sep, Adjustment disorder with anx iety F43.22 and Adjustment disorder with depressed mood F43.21 [facility] [address] [facility] [id number] [address] [place] [address] Aug, Pharyngitis due to other org anism J02.8 [facility] [address] [facility] [id number] [address] [place] [id number] 10 Aug, 2017 Sore throat J02.9 and Acute nasopharyngitis (common cold) J00 [facility] [address] [facility] [id number] [address] [place] [address] 19 Mar, 2017 Acute nasopharyngitis J00 [facility] [address] [facility] [id number] [address] [place] [id number] 07 Mar, 2017 Adjustment disorder with anx iety F43.22 ; Adjustment disorder with depressed mood F43.21 and Bipolar 1 disorder, manic, mild F31.11 [facility] [address] [facility] [id number] [address] [place] [id number] Mar, [facility] [address] [facility] [id number] [address] [place] [phone] 08 Nov, 2016 39 weeks gestation of pregna ncy Z3A.39 [facility] [address] [place] [id number] [address] [place] [address] Nov, care [facility] Z34.93 [facility] [address] [place] [id number] [address] [place] [address] Oct, Normal in third tr imester Z34.93 [facility] [address] [place] [id number] [address] [place] [address] Oct, [facility] [address] [facility] [id number] [address] [place] [address] Oct, Third trimester at less than 36 weeks Z33.1 [facility] [address] [facility] [id number] [address] [place] [phone] Oct, [facility] [place] [address] [place] [id number] [place] [id number] Oct, [facility] [address] [facility] [id number] [address] [place] [id number] Oct, Normal in third tr imester Z34.93 [facility] [address] [facility] [id number] [address] [place] [address] Sep, Normal in third tr imester Z34.93 [facility] [address] [facility] [id number] [address] [place] [address] Sep, Third trimester at less than 36 weeks Z33.1 and Encounter for immunization Z23 [facility] [address] [facility] [id number] [address] [place] [address] Aug, Adjustment disorder with anx iety F43.22 and Adjustment disorder with depressed mood F43.21 [place] [address] [facility] [id number] [address] [place] [address] Aug, Abnormal glucose tolerance t est in O99.810 [facility] [address] [facility] [id number] [address] [place] [address] Aug, [facility] [address] [facility] [id number] [address] [place] [phone] Aug, [facility] [address] [facility] [id number] [address] [place] [address] Aug, Acute upper respiratory infe ction, unspecified J06.9 and Other viral agents as the cause of diseases classified elsewhere B97.89 [facility] [address] [facility] [id number] [address] [place] [id number] Jul, Adjustment disorder with dep ressed mood F43.21 and Bipolar 1 disorder, manic, mild F31.11 [facility] [address] [facility] [id number] [address] [place] [address] Jul, Bipolar 1 disorder, manic, m ild F31.11 ; Adjustment disorder with anxiety F43.22 and Adjustment disorder with depressed mood F43.21 [facility] [address] [facility] [id number] [address] [place] [address] Jul, Normal in second t rimester Z34.92 [facility] [address] [place] [id number] 11 Jul, 2016 Contact dermatitis, unspecif ied contact dermatitis type, unspecified trigger L25.9 [facility] [address] [place] [address] 11 Jul, 2016 Adjustment disorder with dep ressed mood F43.21 ; Adjustment disorder with anxiety F43.22 and Bipolar 1 disorder, manic, mild F31.11 [place] [address] [address] 04 Jul, 2016 Adjustment disorder with dep ressed mood F43.21 and Bipolar 1 disorder, manic, mild F31.11 [place] [address] [address] 26 Jun, 2016 Adjustment disorder with dep ressed mood F43.21 and Bipolar 1 disorder, manic, mild F31.11 [place] [address] [address] Jun, Adjustment disorder with dep ressed mood F43.21 ; Bipolar 1 disorder, manic, mild F31.11 and Anxiety, generalized F41.1 [place] [address] [address] Jun, Normal in second t rimester Z34.92 ; 18 weeks gestation of Z3A.18 and Encounter for immunization Z23 [place] [address] [place] [id number] [address] [place] [address] 07 Jun, 2016 Normal in first tr imester Z34.91 [place] [address] [place] [address] May, care in second trim carlos Z34.92 [place] [address] [place] [id number] [address] [place] [address] May, [place] [address] [place] [id number] [address] [place] [address] May, [place] [address] [place] [id number] [address] [place] [address] 15 May, 2016 Major depressive disorder, r ecurrent, moderate F33.1 [place] [address] [place] [id number] [address] [place] [address] 10 May, 2016 Normal in first tr imester Z34.91 ; Pap smear for cervical cancer screening Z12.4 ; Screen for STD (sexually transmitted disease) Z11.3 and 12 weeks gestation of Z3A.12 [place] [address] [place] [id number] [address] [place] [address] 08 May, 2016 12 weeks gestation of pregna ncy Z3A.12 ; Unspecified abdominal pain R10.9 and Other specified related conditions, unspecified trimester O26.899 [place] [address] [place] [id number] [address] [place] [address] Apr, [place] [address] [place] [id number] [address] [place] [address] Apr, [place] [address] [place] [id number] [address] [place] [address] February, [place] [address] [address] February, Bipolar 1 disorder, manic, m ild F31.11 and Adjustment disorder with depressed mood F43.21 [place] [address] [place] [id number] [address] [place] [address] Dec, Major depressive disorder, s ken episode, moderate F32.1 ; Adjustment disorder with depressed mood F43.21 and Bipolar 1 disorder, manic, mild F31.11 [place] [address] [place] [id number] [address] [place] [address] Dec, Adjustment disorder with dep ressed mood F43.21 ; Major depressive disorder, single episode, moderate F32.1 and Bipolar 1 disorder, manic, mild F31.11 [place] [address] [place] [id number] [address] [place] [address] Dec, Right hand pain M79.641 [place] [address] [place] [address] Dec, Major depressive disorder, s ken episode, moderate F32.1 and Adjustment disorder with depressed mood F43.21 [place] [address] [place] [id number] [address] [place] [address] Nov, Major depressive disorder, s ken episode, moderate F32.1 [place] [address] [place] [id number] [address] [place] [address] Nov, Adjustment disorder with dep ressed mood F43.21 ; Bipolar 1 disorder, manic, mild F31.11 and Adjustment disorder with anxiety F43.22 [place] [address] [address] Oct, [place] [address] [address] Oct, Encounter for counseling reg arding contraception Z30.9 ; Initiation of OCP (BCP) Z30.011 ; Routine screening for STI (sexually transmitted infection) Z11.3 and Dysmenorrhea N94.6 [place] [address] [place] [id number] [address] [place] [address] Sep, Acute upper respiratory infe ction, unspecified J06.9 ; Other viral agents as the cause of diseases classified elsewhere B97.89 and Post-nasal drip R09.82 [place] [address] [place] [id number] [address] [place] [address] Aug, Depressive disorder, not els ewhere classified 311 [place] [address] [address] Jul, Depression, major, recurrent , moderate F33.1 [place] [address] [place] [id number] [address] [place] [phone] Jun, Major depressive disorder, r ecurrent episode, moderate 296.32 [facility] [address] [id number] [address] [place] [address] Mar, Major depression, recurrent 296.30 [facility] [address] [id number] [address] [place] [address], [place] [address] 14 Jan, 2015 [facility] [address] [id number] [address] [place] [phone] Jan, [facility] [address] [id number] [address] [place] [address] Dec, [facility] [address] [id number] [address] [place] [address], [place] [address] Dec, [facility] [address] [id number] [address] [place] [address], [place] [address] Nov, [facility] [address] [id number] [address] [place] [phone] Nov, [facility] [address] [id number] [address] [place] [id number] Oct, [facility] [address] [id number] [address] [place] [address] Oct, [facility] [address] [id number] [address] [place] [id number] Sep, [facility] [address] [id number] [address] [place] [id number] Sep, [facility] [address] [id number] [address] [place] [address] Sep, [facility] [address] [id number] [address] [place] [phone] Sep, [facility] [address] [id number] [address] [place] [address] Sep, [facility] [address] [id number] [address] [place] [phone] Sep, [facility] [address] [id number] [address] [place] [phone] 10 Aug, 2014 [facility] [address] [id number] [address] [place] [address], [place] [address] 10 Aug, 2014 [facility] [address] [id number] [address] [place] [address], [place] [address] Aug, [facility] [address] [id number] [address] [place] [address], [place] [address] Aug, [facility] [address] [id number] [address] [place] [address], [place] [address] 17 Jul, 2014 [facility] [address] [id number] [address] [place] [address], [place] [address] 17 Jul, 2014 [facility] [address] [id number] [address] [place] [address], [place] [address] 16 Jul, 2014 [facility] [address] [id number] [address] [place] [address], [place] [address] 16 Jul, 2014 [facility] [address] [id number] [address] [place] [address], [place] [address] 17 Jun, 2014 [facility] [address] [id number] [address] [place] [address], [place] [address] 17 Jun, 2014 [facility] [address] [id number] [address] [place] [address], [place] [address] 17 Jun, 2014 [facility] [address] [id number] [address] [place] [address], [place] [address] 17 Jun, 2014 [facility] [address] [id number] [address] [place] [address], [place] [address] Apr, [facility] [address] [id number] [address] [place] [address], [place] [address] Apr, [facility] [address] [id number] [address] [place] [address], [place] [address] Mar, [facility] [address] [id number] [address] [place] [address], [place] [address] Mar, [facility] [address] [id number] [facility] [place] [address] Mar, [facility] [address] [id number] [address] [place] [address], [place] [address] Mar, [facility] [address] [id number] [address] [place] [address], [place] [address] February, [facility] [address] [id number] [address] [place] [address], [place] [address] February, [facility] [address] [id number] [address] [place] [address], [place] [address] February, [facility] [address] [id number] [address] [place] [address], [place] [address] February, [facility] [address] [id number] [address] [place] [address], [place] [address] February, [facility] [address] [id number] [address] [place] [address], [place] [address] February, [facility] [address] [id number] [address] [place] [address], [place] [address] February, [facility] [address] [id number] [address] [place] [address], [place] [address] Jan, [facility] [address] [id number] [address] [place] [address], [place] [address] 24 Jan, 2014 [facility] [address] [id number] [address] [place] [address], [place] [address] 18 Jan, 2014 [facility] [address] [id number] [address] [place] [address], [place] [address] 18 Jan, 2014 [facility] [address] [id number] [address] [place] [address], [place] [address] Jan, [facility] [address] [id number] [address] [place] [address], [place] [address] Jan, [facility] [address] [id number] [address] [place] [address], [place] [address] Jan, [facility] [address] [id number] [address] [place] [address], [place] [address] Jan, [facility] [address] [id number] [address] [place] [address], [place] [address] 14 Oct, 2013 [facility] [address] [id number] [address] [place] [address], [place] [address] 14 Oct, 2013 [facility] [address] [id number] [address] [place] [address], [place] [address] Sep, [facility] [address] [id number] [address] [place] [address], [place] [address] 31 Sep, 2013 [facility] [address] [id number] [address] [place] [address], [place] [address] 11 Jun, 2013 [facility] [address] [id number] [address] [place] [address], [place] [address] 04 Jun, 2013 [facility] [address] [id number] [address] [place] [address], [place] [address] 27 Oct, 2012 [facility] [address] [id number] [address] [place] [address], [place] [address] Sep, [facility] [address] [id number] [address] [place] [address], [place] [address] 08 Sep, 2012 [facility] [address] [id number] [address] [place] [address], [place] [address] 26 Jun, 2012 [facility] [address] [id number] [address] [place] [address], [place] [address] 25 Jun, 2012 [facility] [address] [id number] [address] [place] [address], [place] [id number] 24 Jun, 2012 [facility] [address] [id number] [address] [place] [address], [place] [id number] 20 Jun, 2012 [facility] [address] [id number] [address] [place] [address], [place] [address] 20 Jun, 2012 [facility] [address] [id number] [address] [place] [address], [place] [id number] 05 Jun, 2012 [facility] [address] [id number] [address] [place] [address], [place] [address] Apr, [facility] [address] [id number] [address] [place] [address], [place] [id number] Mar, [facility] [address] [id number] [address] [place] [address], [place] [id number] Mar, [facility] [address] [id number] [address] [place] [address], [place] [address] Dec, [facility] [address] [id number] [address] [place] [address], [place] [id number] Oct, [facility] [address] [id number] [address] [place] [address], [place] [address] Aug, [facility] [address] [id number] [address] [place] [address], [place] [id number] Aug, [facility] [address] [id number] [address] [place] [address], [place] [id number] Aug, [facility] [address] [id number] [address] [place] [address], [place] [address] Aug, [facility] [address] [id number] [address] [place] [address], [place] [address] Aug, [facility] [address] [id number] [address] [place] [address], [place] [id number] 24 Jul, 2011 [facility] [address] [id number] [address] [place] [address], [place] [id number] Jul, [facility] [address] [id number] [address] [place] [address], [place] [id number] 15 Jun, 2011 [facility] [address] [id number] [address] [place] [address], [place] [id number] 29 Jul, 2010 [facility] [address] [id number] [address] [place] [address], [place] [id number] 17 Aug, 2008 [facility] [address] [facility] [id number] [address] [place] [id number] Aug, [facility] [address] [facility] [id number] [address] [place] [id number] Oct, IMMUNIZATIONS No Known Immunizations SOCIAL HISTORY [...]
--- OUTSIDE RECORDS SUMMARY | 2020-01-20 19:55 | XMS REPORT ---
Author Author Candace MEI Organization [facility] Address [address] [place] [address] Care Team Providers Care Medical Collector Name Role Phone NATE MEI Unavailable PROBLEMS Type Condition ICD9-CM Code FTH94-VU Code Onset Dates Condition S tatus SNOMED Code Problem Normal in first trimester Z34.91 Active 58348096 Problem Normal in second trimester Z34.92 Active 38364863 Problem Adjustment disorder with anxiety F43.22 Active 56993786 Problem Gender dysphoria F64.9 Active 934 84287 Problem Bipolar 1 disorder, manic, mild F31.11 Active 73466673 Problem Borderline personality disorder F60.3 Active 41939166 Problem Adjustment disorder with depressed mood F43.21 Active 470164328 Problem Mood disorder F39 Active 325248 05 Problem Anxiety F41.9 Active 34146372 Problem Seasonal allergies J30.2 Active 4 08541991 Problem Missed period N92.6 Active 029677 00 ALLERGIES No Information ENCOUNTERS Encounter Location Date Diagnosis [facility] [address] [address] 14 Nov, 2019 Encounter for immunization Z23 [facility] [address] [address] Oct, [facility] [address] [address] Jun, Mood disorder F39 and Borderline persona lity disorder F60.3 [facility] [address] [address] Jun, Mood disorder F39 [facility] [address] [address] May, [facility] [address] [address] May, control counseling Z30.09 and Enco unter for Depo-Provera contraception Z30.42 [facility] [address] [address] Apr, Lower abdominal pain R10.30 [place] [address] [address] 12 Nov, 2018 Mood disorder F39 and Gender dysphoria F 64.9 [place] [address] [address] Jul, Missed period N92.6 [place] [address] [address] Jul, Encounter for test, result unk nown Z32.00 [place] [address] [address] Jul, Hand pain, right M79.641 [facility] [place] [address] [address] May, Allergic rhinitis, unspecifi ed seasonality, unspecified trigger J30.9 [place] [address] [address] May, [place] [address] [address] Apr, Mood disorder F39 [place] [address] [address] Apr, Syncope, unspecified syncope type R55 an d Dizziness R42 [place] [address] [address] 14 Mar, 2018 Adjustment disorder with depressed mood F43.21 and Anxiety F41.9 [facility] [address] [place] [id number] [place] [address] February, Seasonal allergies J30.2 [place] [address] [address] February, [facility] [address] [place] [id number] [place] [address] Dec, Seasonal allergic rhinitis, unspecified trigger J30.2 and Sore throat J02.9 [place] [address] [address] Oct, Mood disorder F39 [place] [address] [address] Oct, Mood disorder F39 [place] [address] [address] Sep, Adjustment disorder with depressed mood F43.21 ; Screening cholesterol level Z13.220 and Screening for diabetes mellitus Z13.1 [place] [address] [address] Sep, Adjustment disorder with anxiety F43.22 and Adjustment disorder with depressed mood F43.21 [facility] [place] [address] [address] Aug, Pharyngitis due to other org anism J02.8 [facility] [address] [address] 10 Aug, 2017 Sore throat J02.9 and Acute nasopharyngitis (common cold) J00 [facility] [place] [address] [address] 19 Mar, 2017 Acute nasopharyngitis J00 [place] [address] [address] 07 Mar, 2017 Adjustment disorder with anxiety F43.22 ; Adjustment disorder with depressed mood F43.21 and Bipolar 1 disorder, manic, mild F31.11 [place] [address] [address] Mar, [place] [address] [address] 08 Nov, 2016 39 weeks gestation of Z3A.39 [place] [address] [id number] [place] [address] Nov, care in third trimester Z34.93 [place] [address] [place] [id number] [place] [address] Oct, Normal in third trimester Z34. 93 [facility] [address] [place] [id number] [place] [address] Oct, [place] [address] [place] [id number] [place] [address] Oct, Third trimester at less than 3 6 weeks Z33.1 [place] [address] [place] [id number] [place] [address] Oct, [facility] [address] [id number] [id number] Oct, [place] [address] [place] [id number] [place] [address] Oct, Normal in third trimester Z34. 93 [place] [address] [place] [id number] [place] [address] Sep, Normal in third trimester Z34. 93 [place] [address] [place] [id number] [place] [address] Sep, Third trimester at less than 3 6 weeks Z33.1 and Encounter for immunization Z23 [place] [address] [place] [id number] [place] [address] Aug, 2016 Adjustment disorder with anxiety F43.22 and Adjustment disorder with depressed mood F43.21 [place] [address] [place] [id number] [place] [address] 16 Aug, 2016 Abnormal glucose tolerance test in pregn gianfranco O99.810 [place] [address] [place] [id number] [place] [address] Aug, [place] [address] [place] [id number] [place] [address] Aug, Normal in second trimester Z34 .92 [facility] [address] [facility] [id number] [place] [address] Aug, Acute upper respiratory infe ction, unspecified J06.9 and Other viral agents as the cause of diseases classified elsewhere B97.89 [place] [address] [address] Jul, Adjustment disorder with depressed mood F43.21 and Bipolar 1 disorder, manic, mild F31.11 [place] [address] [address] Jul, Bipolar 1 disorder, manic, mild F31.11 ; Adjustment disorder with anxiety F43.22 and Adjustment disorder with depressed mood F43.21 [place] [address] [address] Jul, Normal in second trimester Z34 .92 [facility] [address] [facility] [id number] [address] [place] [address] Jul, Contact dermatitis, unspecif ied contact dermatitis type, unspecified trigger L25.9 [place] [address] [address] Jul, Adjustment disorder with depressed mood F43.21 ; Adjustment disorder with anxiety F43.22 and Bipolar 1 disorder, manic, mild F31.11 [place] [address] [address] Jul, Adjustment disorder with depressed mood F43.21 and Bipolar 1 disorder, manic, mild F31.11 [place] [address] [address] Jun, Adjustment disorder with depressed mood F43.21 and Bipolar 1 disorder, manic, mild F31.11 [place] [address] [address] Jun, Adjustment disorder with depressed mood F43.21 ; Bipolar 1 disorder, manic, mild F31.11 and Anxiety, generalized F41.1 [place] [address] [address] Jun, Normal in second trimester Z34 .92 ; 18 weeks gestation of Z3A.18 and Encounter for immunization Z23 [place] [address] [address] 07 Jun, 2016 Normal in first trimester Z34. 91 [place] [address] [address] 24 May, 2016 care in second trimester Z34.92 [place] [address] [address] May, [place] [address] [address] May, [place] [address] [address] May, Major depressive disorder, recurrent, mo derate F33.[address] [address] 10 May, 2016 Normal in first trimester Z34. 91 ; Pap smear for cervical cancer screening Z12.4 ; Screen for STD (sexually transmitted disease) Z11.3 and 12 weeks gestation of Z3A.[address] [address] 08 May, 2016 12 weeks gestation of Z3A.12 ; Unspecified abdominal pain R10.9 and Other specified related conditions, unspecified trimester O26.899 [place] [address] [address] Apr, [place] [address] [address] Apr, [place] [address] [address] February, [address] [address] February, Bipolar 1 disorder, manic, mild F31.11 a nd Adjustment disorder with depressed mood F43.21 [place] [address] [address] Dec, Major depressive disorder, single episod e, moderate F32.1 ; Adjustment disorder with depressed mood F43.21 and Bipolar 1 disorder, manic, mild F31.11 [place] [address] [address] Dec, Adjustment disorder with depressed mood F43.21 ; Major depressive disorder, single episode, moderate F32.1 and Bipolar 1 disorder, manic, mild F31.11 [place] [address] [address] Dec, Right hand pain M79.641 [place] [address] [address] Dec, Major depressive disorder, single episod e, moderate F32.1 and Adjustment disorder with depressed mood F43.21 [place] [address] [address] Nov, Major depressive disorder, single episod e, moderate F32.[address] [address] Nov, Adjustment disorder with depressed mood F43.21 ; Bipolar 1 disorder, manic, mild F31.11 and Adjustment disorder with anxiety F43.22 [place] [address] [address] Oct, [address] [address] Oct, Encounter for counseling regarding contr aception Z30.9 ; Initiation of OCP (BCP) Z30.011 ; Routine screening for STI (sexually transmitted infection) Z11.3 and Dysmenorrhea N94.6 [place] [address] [address] Sep, Acute upper respiratory infection, unspe cified J06.9 ; Other viral agents as the cause of diseases classified elsewhere B97.89 and Post-nasal drip R09.82 [facility] [address] [place] [id number] [place] [address] Aug, Depressive disorder, not elsewhere class ified 311 [facility] [address] [place] [id number] [place] [address] Jul, Depression, major, recurrent, moderate F 33.1 [facility] [address] [place] [id number] [place] [address] Jun, Major depressive disorder, recurrent epi sode, moderate 296.32 [facility] [address] [place] [id number] [place] [address] Mar, Major depression, recurrent 296.30 [facility] [address] [place] [id number] [place] [address] Jan, [facility] [address] [address] Jan, [facility] [address] [address] Dec, [facility] [address] [address] Dec, [facility] [address] [address] Nov, [facility] [address] [place] [id number] [place] [address] Nov, [facility] [address] [address] Oct, [facility] [address] [place] [id number] [place] [address] Oct, [facility] [address] [address] Sep, [facility] [address] [place] [id number] [place] [address] Sep, [facility] [address] [address] Sep, [facility] [address] [id number] [place] [address] Sep, [facility] [address] [id number] [place] [address] Sep, [facility] [address] [id number] [place] [address] Sep, [facility] [address] [id number] [place] [address] Aug, [facility] [address] [id number] [place] [address] Aug, [facility] [address] [id number] [place] [address] Aug, [facility] [address] [id number] [place] [address] Aug, [facility] [address] [id number] [place] [address] Jul, [facility] [address] [id number] [place] [address] Jul, [facility] [address] [id number] [place] [address] Jul, [facility] [address] [id number] [place] [address] Jul, [facility] [address] [id number] [place] [address] Jun, [facility] [address] [id number] [place] [address] Jun, [facility] [address] [id number] [place] [address] Jun, [facility] [address] [id number] [place] [address] Jun, [facility] [address] [id number] [place] [address] Apr, [facility] [address] [id number] [place] [address] Apr, [facility] [address] [id number] [place] [address] Mar, [facility] [address] [id number] [place] [address] Mar, [facility] [address] [id number] [place] [address] Mar, [facility] [address] [id number] [place] [address] Mar, [facility] [address] [id number] [place] [address] February, [facility] [address] [id number] [place] [address] February, [facility] [address] [id number] [place] [address] February, [facility] [address] [id number] [place] [address] February, [facility] [address] [id number] [place] [address] February, [facility] [address] [id number] [place] [address] February, [facility] [address] [id number] [place] [address] February, [facility] [address] [id number] [place] [address] Jan, [facility] [address] [id number] [place] [address] 24 Jan, 2014 [facility] [address] [id number] [place] [address] Jan, [facility] [address] [id number] [place] [address] Jan, [facility] [address] [id number] [place] [address] Jan, [facility] [address] [id number] [place] [address] 14 Jan, 2014 [facility] [address] [id number] [place] [address] 11 Jan, 2014 [facility] [address] [id number] [place] [address] 11 Jan, 2014 [facility] [address] [id number] [place] [address] 14 Oct, 2013 [facility] [address] [id number] [place] [address] 14 Oct, 2013 [facility] [address] [id number] [place] [address] Sep, [facility] [address] [id number] [place] [address] 31 Sep, 2013 [facility] [address] [id number] [place] [address] 11 Jun, 2013 [facility] [address] [id number] [place] [address] 04 Jun, 2013 [facility] [address] [id number] [place] [address] 27 Oct, 2012 [facility] [address] [id number] [place] [address] 08 Sep, 2012 [facility] [address] [id number] [place] [address] 08 Sep, 2012 [facility] [address] [id number] [place] [address] 26 Jun, 2011 [facility] [address] [id number] [place] [address] 25 Jun, 2011 [facility] [address] [id number] [place] [address] 24 Jun, 2011 [facility] [address] [id number] [place] [address] 20 Jun, 2011 [facility] [address] [id number] [place] [address] 20 Jun, 2011 [facility] [address] [id number] [place] [address] 05 Jun, 2012 [facility] [address] [id number] [place] [address] Apr, [facility] [address] [id number] [place] [address] Mar, [facility] [address] [id number] [place] [address] Mar, [facility] [address] [id number] [place] [address] Dec, [facility] [address] [id number] [place] [address] Oct, [facility] [address] [place] [id number] [place] [address] Aug, [facility] [address] [place] [id number] [place] [address] Aug, [facility] [address] [place] [id number] [place] [address] Aug, [facility] [address] [id number] [place] [address] Aug, [facility] [address] [place] [id number] [place] [address] Aug, [facility] [address] [id number] [place] [address] 24 Jul, 2011 [facility] [address] [id number] [place] [address] Jul, [facility] [address] [id number] [place] [address] 15 Jun, 2011 [facility] [address] [place] [id number] [place] [address] 29 Jul, 2010 [facility] [address] [id number] [place] [address] 17 Aug, 2008 [facility] [address] [place] [id number] [place] [address] Aug, [facility] [address] [facility] [id number] [place] [address] Oct, IMMUNIZATIONS No Known Immunizations SOCIAL HISTORY Never Assessed REASON FOR VISIT PLAN OF CARE VITAL SIGNS MEDICATIONS Unknown Medications RESULTS No Results PROCEDURES Procedure Date Ordered Result Body Site PSYCH DIAGNOSTIC EVALUATION January 28, 2014 INSTRUCTIONS MEDICATIONS ADMINISTERED No Known Medications MEDICAL [...]
--- OUTSIDE RECORDS SUMMARY | 2020-01-20 19:56 | XMS REPORT ---
Author Author Candace Romeo Organization [facility] Address [address] [place] [address] Care Team Providers Care Second Steward Name Role Phone TJ Romeo Unavailable PROBLEMS Type Condition ICD9-CM Code [id number] Code Onset Dates Condition S tatus SNOMED Code Problem Normal in first trimester Z34.91 Active 86525329 Problem Normal in second trimester Z34.92 Active 88963501 Problem Adjustment disorder with anxiety F43.22 Active 97843017 Problem Gender dysphoria F64.9 Active 934 44263 Problem Bipolar 1 disorder, manic, mild F31.11 Active 38330126 Problem Borderline personality disorder F60.3 Active 23668378 Problem Adjustment disorder with depressed mood F43.21 Active 861161633 Problem Mood disorder F39 Active 180952 05 Problem Anxiety F41.9 Active 47785648 Problem Seasonal allergies J30.2 Active 4 07852581 Problem Missed period N92.6 Active 980137 00 ALLERGIES No Information ENCOUNTERS Encounter Location Date Diagnosis [facility] [id number] [place] [address] Jun, Mood disorder F39 and Borderline persona lity disorder F60.3 [facility] [id number] [place] [address] Jun, Mood disorder F39 [facility] [id number] [place] [address] May, [facility] [address] [address] May, control counseling Z30.09 and Enco unter for Depo-Provera contraception Z30.42 [facility] [address] [facility] [id number] [place] [address] Apr, Lower abdominal pain R10.30 [address] [address] [address] Nov, Mood disorder F39 and Gender dysphoria F 64.9 [address] [address] [address] Jul, Missed period N92.6 [place] [address] [address] Jul, Encounter for test, result unk nown Z32.00 [place] [address] [address] Jul, Hand pain, right M79.641 [facility] [address] [place] [address] May, Allergic rhinitis, unspecifi ed seasonality, unspecified trigger J30.9 [place] [address] [address] May, [place] [address] [address] Apr, Mood disorder F39 [place] [address] [address] Apr, Syncope, unspecified syncope type R55 an d Dizziness R42 [place] [address] [address] Mar, Adjustment disorder with depressed mood F43.21 and Anxiety F41.9 [facility] [id number] [place] [address] February, Seasonal allergies J30.2 [place] [address] [address] February, [facility] [address] [facility] [id number] [address] [place] [address] Dec, Seasonal allergic rhinitis, unspecified trigger J30.2 and Sore throat J02.9 [place] [address] [address] Oct, Mood disorder F39 [place] [address] [address] Oct, Mood disorder F39 [place] [address] [address] Sep, Adjustment disorder with depressed mood F43.21 ; Screening cholesterol level Z13.220 and Screening for diabetes mellitus Z13.1 [place] [address] [address] Sep, Adjustment disorder with anxiety F43.22 and Adjustment disorder with depressed mood F43.21 [facility] WALK IN [address] [address] 22 Aug, 2017 Pharyngitis due to other org anism J02.8 [facility] WALK IN [address] [address] 10 Aug, 2017 Sore throat J02.9 and Acute nasopharyngitis (common cold) J00 [facility] WALK IN [address] [address] 19 Mar, 2017 Acute nasopharyngitis J00 [place] [address] [address] 07 Mar, 2017 Adjustment disorder with anxiety F43.22 ; Adjustment disorder with depressed mood F43.21 and Bipolar 1 disorder, manic, mild F31.11 [place] [address] [address] Mar, [place] [address] [address] Nov, 39 weeks gestation of Z3A.39 [place] [address] [address] Nov, care in third trimester Z34.[address] [address] Oct, Normal in third trimester Z34. 93 [facility] [id number] [place] [address] Oct, [address] [id number] [place] [address] Oct, Third trimester at less than 3 6 weeks Z33.1 [place] [id number] [place] [address] Oct, [facility] [address] [id number] [id number] Oct, [place] [id number] [place] [address] Oct, Normal in third trimester Z34. 93 [place] [id number] [place] [address] Sep, Normal in third trimester Z34. 93 [place] [id number] [place] [address] Sep, Third trimester at less than 3 6 weeks Z33.1 and Encounter for immunization Z23 [address] [address] 23 Aug, 2016 Adjustment disorder with anxiety F43.22 and Adjustment disorder with depressed mood F43.21 [id number] [place] [address] 16 Aug, 2016 Abnormal glucose tolerance test in pregn gianfranco O99.810 [facility] [id number] [place] [address] Aug, [place] [id number] [place] [address] Aug, Normal in second trimester Z34 .92 [facility] [address] [facility] [id number] [address] [place] [address] Aug, Acute upper respiratory infe ction, unspecified J06.9 and Other viral agents as the cause of diseases classified elsewhere B97.89 [place] [address] [address] Jul, Adjustment disorder with depressed mood F43.21 and Bipolar 1 disorder, manic, mild F31.11 [address] [address] [address] Jul, Bipolar 1 disorder, manic, mild F31.11 ; Adjustment disorder with anxiety F43.22 and Adjustment disorder with depressed mood F43.21 [address] [address] [address] Jul, Normal in second trimester Z34 .92 [facility] [address] [facility] [id number] [address] [place] [address] Jul, Contact dermatitis, unspecif ied contact dermatitis type, unspecified trigger L25.9 [address] [address] [address] Jul, Adjustment disorder with depressed mood F43.21 ; Adjustment disorder with anxiety F43.22 and Bipolar 1 disorder, manic, mild F31.11 [address] [address] [address] Jul, Adjustment disorder with depressed mood F43.21 and Bipolar 1 disorder, manic, mild F31.11 [address] [address] [address] Jun, Adjustment disorder with depressed mood F43.21 and Bipolar 1 disorder, manic, mild F31.11 [facility] [address] [address] Jun, Adjustment disorder with depressed mood F43.21 ; Bipolar 1 disorder, manic, mild F31.11 and Anxiety, generalized F41.1 [place] [address] [address] Jun, Normal in second trimester Z34 .92 ; 18 weeks gestation of Z3A.18 and Encounter for immunization Z23 [facility] [address] [address] 07 Jun, 2016 Normal in first trimester Z34. 91 [place] [address] [address] 24 May, 2016 care in second trimester Z34.92 [address] [address] [address] May, [place] [address] [address] May, [place] [address] [address] May, Major depressive disorder, recurrent, mo derate F33.1 [address] [address] [address] 10 May, 2016 Normal in first trimester Z34. 91 ; Pap smear for cervical cancer screening Z12.4 ; Screen for STD (sexually transmitted disease) Z11.3 and 12 weeks gestation of Z3A.12 [address] [address] [address] 08 May, 2016 12 weeks gestation of Z3A.12 ; Unspecified abdominal pain R10.9 and Other specified related conditions, unspecified trimester O26.899 [address] [address] [address] Apr, [address] [address] [address] Apr, [address] [address] [address] February, [address] [address] [address] February, Bipolar 1 disorder, manic, mild F31.11 a nd Adjustment disorder with depressed mood F43.[address] [address] Dec, Major depressive disorder, single episod e, moderate F32.1 ; Adjustment disorder with depressed mood F43.21 and Bipolar 1 disorder, manic, mild F31.11 [address] [address] [address] Dec, Adjustment disorder with depressed mood F43.21 ; Major depressive disorder, single episode, moderate F32.1 and Bipolar 1 disorder, manic, mild F31.11 [address] [address] [address] Dec, Right hand pain M79.641 [address] [address] [address] Dec, Major depressive disorder, single episod e, moderate F32.1 and Adjustment disorder with depressed mood F43.21 [address] [address] [address] Nov, Major depressive disorder, single episod e, moderate F32.1 [address] [address] [address] Nov, Adjustment disorder with depressed mood F43.21 ; Bipolar 1 disorder, manic, mild F31.11 and Adjustment disorder with anxiety F43.22 [address] [address] [address] Oct, [address] [address] [address] Oct, Encounter for counseling regarding contr aception Z30.9 ; Initiation of OCP (BCP) Z30.011 ; Routine screening for STI (sexually transmitted infection) Z11.3 and Dysmenorrhea N94.6 [address] [address] [address] Sep, Acute upper respiratory infection, unspe cified J06.9 ; Other viral agents as the cause of diseases classified elsewhere B97.89 and Post-nasal drip R09.82 [address] [address] [address] Aug, Depressive disorder, not elsewhere class ified [address] [address] Jul, Depression, major, recurrent, moderate F 33.1 [facility] [id number] [place] [address] 25 Jun, 2015 Major depressive disorder, recurrent epi sode, moderate 296.32 [facility] [id number] [place] [address] 04 Mar, 2015 Major depression, recurrent 296.30 [facility] [address] [address] Jan, [facility] [id number] [place] [address] Jan, [facility] [id number] [place] [address] Dec, [facility] [id number] [place] [address] Dec, [facility] [address] [address] Nov, [facility] [address] [address] Nov, [facility] [id number] [place] [address] Oct, [facility] [id number] [place] [address] Oct, [facility] [id number] [place] [address] Sep, [facility] [id number] [place] [address] Sep, [facility] [address] [address] Sep, [facility] [id number] [place] [address] Sep, [facility] [id number] [place] [address] Sep, [facility] [address] [id number] [place] [address] Sep, [facility] [address] [id number] [place] [address] Aug, [facility] [address] [id number] [place] [address] Aug, [facility] [address] [id number] [place] [address] Aug, [facility] [address] [id number] [place] [address] Aug, [facility] [address] [id number] [place] [address] Jul, [facility] [address] [id number] [place] [address] Jul, [facility] [address] [id number] [place] [address] Jul, [facility] [address] [id number] [place] [address] Jul, [facility] [address] [id number] [place] [address] Jun, [facility] [address] [id number] [place] [address] Jun, [facility] [address] [id number] [place] [address] Jun, [facility] [address] [id number] [place] [address] Jun, [facility] [address] [id number] [place] [address] Apr, [facility] [id number] [place] [address] Apr, [facility] [address] [id number] [place] [address] Mar, [facility] [address] [id number] [place] [address] Mar, [facility] [address] [id number] [place] [address] Mar, [facility] [address] [id number] [place] [address] Mar, [facility] [address] [id number] [place] [address] February, [facility] [address] [id number] [place] [address] February, [facility] [address] [facility] [id number] [place] [address] February, [facility] [address] [id number] [place] [address] February, [facility] [address] [id number] [place] [address] February, [facility] [address] [id number] [place] [address] February, [facility] [address] [id number] [place] [address] February, [facility] [address] [id number] [place] [address] Jan, [facility] [address] [id number] [place] [address] Jan, [facility] [address] [id number] [place] [address] Jan, [facility] [address] [id number] [place] [address] 18 Jan, 2014 [facility] [address] [id number] [place] [address] Jan, [facility] [address] [id number] [place] [address] Jan, [facility] [address] [id number] [place] [address] Jan, [facility] [address] [id number] [place] [address] 11 Jan, 2014 [facility] [address] [id number] [place] [address] Oct, [facility] [address] [id number] [place] [address] 14 Oct, 2013 [facility] [address] [id number] [place] [address] Sep, [facility] [address] [id number] [place] [address] Sep, [facility] [address] [id number] [place] [address] 11 Jun, 2013 [facility] [address] [id number] [place] [address] 04 Jun, 2013 [facility] [address] [id number] [place] [address] Oct, [facility] [address] [id number] [place] [address] 08 Sep, 2012 [facility] [address] [id number] [place] [address] 08 Sep, 2012 [facility] [address] [id number] [place] [address] 26 Jun, 2012 [facility] [address] [id number] [place] [address] 25 Jun, 2012 [facility] [address] [id number] [place] [address] 24 Jun, 2011 [facility] [address] [id number] [place] [address] 20 Jun, 2011 [facility] [address] [id number] [place] [address] 20 Jun, 2011 [facility] [address] [id number] [place] [address] 05 Jun, 2012 [facility] [address] [id number] [place] [address] 12 Apr, 2012 [facility] [id number] [place] [address] Mar, [facility] [id number] [place] [address] Mar, [facility] [id number] [place] [address] Dec, [facility] [id number] [place] [address] Oct, [facility] [id number] [place] [address] Aug, [facility] [id number] [place] [address] Aug, [facility] [id number] [place] [address] Aug, [facility] [id number] [place] [address] Aug, [facility] [id number] [place] [address] Aug, [facility] [id number] [place] [address] Jul, [facility] [id number] [place] [address] Jul, [facility] [id number] [place] [address] Jun, [facility] [id number] [place] [address] Jul, [facility] [id number] [place] [address] Aug, [facility] [id number] [place] [address] Aug, [facility] [id number] [place] [address] Oct, IMMUNIZATIONS No Known Immunizations SOCIAL HISTORY Never Assessed REASON FOR VISIT PLAN OF CARE VITAL SIGNS Height 63.25 in 2014-05-05 Weight 120.25 lbs 2014-05-05 Temperature 98.1 degrees Fahrenheit 2014-05-05 Heart Rate 76 bpm 2014-05-05 Respiratory Rate 28 2014-05-05 Blood pressure systolic 92 mmHg 2014-05-05 Blood pressure diastolic 70 mmHg 2014-05-05 MEDICATIONS No Known Medications RESULTS No Results [...]
--- OUTSIDE RECORDS SUMMARY | 2020-01-20 19:56 | XMS REPORT ---
Author Author Candace MEI Organization [facility] Address [address] [place] [address] Care Team Providers Care Employment Recruiter Name Role Phone NATE MEI Unavailable PROBLEMS Type Condition ICD9-CM Code EFF10-ZW Code Onset Dates Condition S tatus SNOMED Code Problem Normal in first trimester Z34.91 Active 03500225 Problem Normal in second trimester Z34.92 Active 83477421 Problem Adjustment disorder with anxiety F43.22 Active 05491757 Problem Gender dysphoria F64.9 Active 934 27011 Problem Bipolar 1 disorder, manic, mild F31.11 Active 18280780 Problem Borderline personality disorder F60.3 Active 33770656 Problem Adjustment disorder with depressed mood F43.21 Active 888789007 Problem Mood disorder F39 Active 111559 05 Problem Anxiety F41.9 Active 41572395 Problem Seasonal allergies J30.2 Active 4 67409238 Problem Missed period N92.6 Active 708699 00 ALLERGIES No Information ENCOUNTERS Encounter Location Date Diagnosis [facility] [address] [id number] [place] [address] 05 Jun, 2019 Mood disorder F39 and Borderline persona lity disorder F60.3 [facility] [id number] [place] [address] 03 Jun, 2019 Mood disorder F39 [facility] [id number] [place] [address] May, [facility] [address] [address] May, control counseling Z30.09 and Enco unter for Depo-Provera contraception Z30.42 [facility] [address] [facility] [id number] [address] [place] [address] Apr, Lower abdominal pain R10.30 [place] [address] [address] Nov, Mood disorder F39 and Gender dysphoria F 64.9 [place] [address] [address] Jul, Missed period N92.6 [place] [address] [address] Jul, Encounter for test, result unk nown Z32.00 [place] [address] [address] Jul, Hand pain, right M79.641 [facility] [address] [place] [id number] [place] [address] May, Allergic rhinitis, unspecifi ed seasonality, unspecified trigger J30.9 [place] [address] [address] May, [place] [address] [address] Apr, Mood disorder F39 [place] [address] [address] Apr, Syncope, unspecified syncope type R55 an d Dizziness R42 [place] [address] [address] Mar, Adjustment disorder with depressed mood F43.21 and Anxiety F41.9 [facility] [address] [place] [id number] [address] [place] [address] February, Seasonal allergies J30.2 [place] [address] [address] February, [facility] [address] [place] [id number] [address] [place] [address] Dec, Seasonal allergic rhinitis, unspecified trigger J30.2 and Sore throat J02.9 [place] [address] [address] Oct, Mood disorder F39 [facility] [address] [address] Oct, Mood disorder F39 [place] [address] [address] Sep, Adjustment disorder with depressed mood F43.21 ; Screening cholesterol level Z13.220 and Screening for diabetes mellitus Z13.1 [place] [address] [address] Sep, Adjustment disorder with anxiety F43.22 and Adjustment disorder with depressed mood F43.21 [facility] N [address] [address] 22 Aug, 2017 Pharyngitis due to other org anism J02.8 [facility] [address] [address] 10 Aug, 2017 Sore throat J02.9 and Acute nasopharyngitis (common cold) J00 [facility] [address] [address] Mar, Acute nasopharyngitis J00 [place] [address] [address] 07 Mar, 2017 Adjustment disorder with anxiety F43.22 ; Adjustment disorder with depressed mood F43.21 and Bipolar 1 disorder, manic, mild F31.11 [place] [address] [address] Mar, [place] [address] [address] Nov, 39 weeks gestation of Z3A.39 [place] [address] [address] Nov, care in third trimester Z34.93 [place] [address] [address] Oct, Normal in third trimester Z34. 93 [facility] [address] [id number] [place] [address] Oct, [place] [id number] [place] [address] Oct, Third trimester at less than 3 6 weeks Z33.1 [place] [address] [id number] [place] [address] Oct, [facility] [address] [id number] [id number] Oct, [facility] [address] [id number] [place] [address] Oct, Normal in third trimester Z34. 93 [place] [address] [id number] [place] [address] Sep, Normal in third trimester Z34. 93 [place] [id number] [place] [address] Sep, Third trimester at less than 3 6 weeks Z33.1 and Encounter for immunization Z23 [place] [id number] [place] [address] 23 Aug, 2016 Adjustment disorder with anxiety F43.22 and Adjustment disorder with depressed mood F43.21 [address] [place] [address] 16 Aug, 2016 Abnormal glucose tolerance test in pregn gianfranco O99.810 [place] [address] [id number] [place] [address] Aug, [place] [id number] [place] [address] Aug, Normal in second trimester Z34 .92 [facility] [address] [facility] [id number] [address] [address] Aug, Acute upper respiratory infe ction, unspecified J06.9 and Other viral agents as the cause of diseases classified elsewhere B97.89 [place] [address] [address] Jul, Adjustment disorder with depressed mood F43.21 and Bipolar 1 disorder, manic, mild F31.11 [facility] [address] [address] Jul, Bipolar 1 disorder, manic, mild F31.11 ; Adjustment disorder with anxiety F43.22 and Adjustment disorder with depressed mood F43.21 [facility] [address] [address] Jul, Normal in second trimester Z34 .92 [facility] [address] [facility] [id number] [address] [place] [address] Jul, Contact dermatitis, unspecif ied contact dermatitis type, unspecified trigger L25.9 [facility] [address] [address] Jul, Adjustment disorder with depressed mood F43.21 ; Adjustment disorder with anxiety F43.22 and Bipolar 1 disorder, manic, mild F31.11 [place] [address] [address] Jul, Adjustment disorder with depressed mood F43.21 and Bipolar 1 disorder, manic, mild F31.11 [facility] [address] [address] Jun, Adjustment disorder with depressed mood F43.21 and Bipolar 1 disorder, manic, mild F31.11 [facility] [address] [address] Jun, Adjustment disorder with depressed mood F43.21 ; Bipolar 1 disorder, manic, mild F31.11 and Anxiety, generalized F41.1 [place] [address] [address] Jun, Normal in second trimester Z34 .92 ; 18 weeks gestation of Z3A.18 and Encounter for immunization Z23 [place] [address] [address] Jun, Normal in first trimester Z34. 91 [place] [address] [address] 24 May, 2016 care in second trimester Z34.92 [place] [address] [address] May, [place] [address] [address] May, [place] [address] [address] May, Major depressive disorder, recurrent, mo derate F33.[address] [address] 10 May, 2016 Normal in first trimester Z34. 91 ; Pap smear for cervical cancer screening Z12.4 ; Screen for STD (sexually transmitted disease) Z11.3 and 12 weeks gestation of Z3A.[address] [address] 08 May, 2016 12 weeks gestation of Z3A.12 ; Unspecified abdominal pain R10.9 and Other specified related conditions, unspecified trimester O26.899 [place] [address] [address] Apr, [place] [address] [address] Apr, [place] [address] [address] February, [address] [address] February, Bipolar 1 disorder, manic, mild F31.11 a nd Adjustment disorder with depressed mood F43.[address] [address] Dec, Major depressive disorder, single episod e, moderate F32.1 ; Adjustment disorder with depressed mood F43.21 and Bipolar 1 disorder, manic, mild F31.11 [place] [address] [address] Dec, Adjustment disorder with depressed mood F43.21 ; Major depressive disorder, single episode, moderate F32.1 and Bipolar 1 disorder, manic, mild F31.11 [place] [address] [address] Dec, Right hand pain M79.641 [place] [address] [address] Dec, Major depressive disorder, single episod e, moderate F32.1 and Adjustment disorder with depressed mood F43.21 [place] [address] [address] Nov, Major depressive disorder, single episod e, moderate F32.1 [place] [address] [address] Nov, Adjustment disorder with depressed mood F43.21 ; Bipolar 1 disorder, manic, mild F31.11 and Adjustment disorder with anxiety F43.22 [place] [address] [address] Oct, [address] [address] Oct, Encounter for counseling regarding contr aception Z30.9 ; Initiation of OCP (BCP) Z30.011 ; Routine screening for STI (sexually transmitted infection) Z11.3 and Dysmenorrhea N94.6 [place] [address] [address] Sep, Acute upper respiratory infection, unspe cified J06.9 ; Other viral agents as the cause of diseases classified elsewhere B97.89 and Post-nasal drip R09.82 [place] [address] [address] Aug, Depressive disorder, not elsewhere class ified [address] [address] Jul, Depression, major, recurrent, moderate F 33.1 [facility] [id number] [place] [address] 25 Jun, 2015 Major depressive disorder, recurrent epi sode, moderate 296.32 [facility] [id number] [place] [address] 04 Mar, 2015 Major depression, recurrent 296.30 [facility] [address] [place] [address] [id number] [place] [address] Jan, [facility] [id number] [place] [address] Jan, [facility] [id number] [place] [address] Dec, [facility] [id number] [place] [address] Dec, [facility] [id number] [place] [address] Nov, [facility] [id number] [place] [address] Nov, [facility] [id number] [place] [address] Oct, [facility] [id number] [place] [address] Oct, [facility] [id number] [place] [address] Sep, [facility] [id number] [place] [address] Sep, [facility] [id number] [place] [address] Sep, [facility] [id number] [place] [address] Sep, [facility] [id number] [place] [address] Sep, [facility] [address] [place] [address] Sep, [facility] [address] [id number] [place] [address] Aug, [facility] [address] [id number] [place] [address] Aug, [facility] [address] [id number] [place] [address] Aug, [facility] [address] [id number] [place] [address] Aug, [facility] [address] [id number] [place] [address] Jul, [facility] [address] [id number] [place] [address] Jul, [facility] [address] [id number] [place] [address] Jul, [facility] [address] [id number] [place] [address] Jul, [facility] [address] [id number] [place] [address] Jun, [facility] [address] [id number] [place] [address] Jun, [facility] [address] [id number] [place] [address] Jun, [facility] [address] [id number] [place] [address] Jun, [facility] [address] [id number] [place] [address] Apr, [facility] [id number] [place] [address] Apr, [facility] [address] [id number] [place] [address] Mar, [facility] [address] [id number] [place] [address] Mar, [facility] [address] [id number] [place] [address] Mar, [facility] [address] [id number] [place] [address] Mar, [facility] [address] [id number] [place] [address] February, [facility] [address] [id number] [place] [address] February, [facility] [address] [id number] [place] [address] February, [facility] [address] [id number] [place] [address] February, [facility] [address] [id number] [place] [address] February, [facility] [address] [id number] [place] [address] February, [facility] [address] [id number] [place] [address] February, [facility] [address] [id number] [place] [address] Jan, [facility] [address] [id number] [place] [address] Jan, [facility] [address] [id number] [place] [address] Jan, [facility] [address] [id number] [place] [address] Jan, [facility] [address] [id number] [place] [address] Jan, [facility] [address] [id number] [place] [address] 14 Jan, 2014 [facility] [address] [id number] [place] [address] 11 Jan, 2014 [facility] [address] [id number] [place] [address] Jan, [facility] [address] [id number] [place] [address] Oct, [facility] [address] [id number] [place] [address] 14 Oct, 2013 [facility] [address] [id number] [place] [address] Sep, [facility] [address] [id number] [place] [address] Sep, [facility] [address] [facility] [id number] [place] [address] 11 Jun, 2013 [facility] [address] [id number] [place] [address] 04 Jun, 2013 [facility] [address] [id number] [place] [address] 27 Oct, 2012 [facility] [address] [id number] [place] [address] 08 Sep, 2012 [facility] [address] [id number] [place] [address] 08 Sep, 2012 [facility] [address] [id number] [place] [address] 26 Jun, 2012 [facility] [address] [id number] [place] [address] 25 Jun, 2011 [facility] [address] [id number] [place] [address] 24 Jun, 2011 [facility] [address] [id number] [place] [address] 20 Jun, 2011 [facility] [address] [id number] [place] [address] 20 Jun, 2011 [facility] [address] [id number] [place] [address] 05 Jun, 2012 [facility] [address] [id number] [place] [address] Apr, [facility] [id number] [place] [address] 29 Mar, 2012 [facility] [id number] [place] [address] Mar, [facility] [id number] [place] [address] Dec, [facility] [id number] [place] [address] Oct, [facility] [id number] [place] [address] Aug, [facility] [id number] [place] [address] Aug, [facility] [id number] [place] [address] Aug, [facility] [id number] [place] [address] Aug, [facility] [id number] [place] [address] Aug, [facility] [id number] [place] [address] Jul, [facility] [address] [address] Jul, [facility] [id number] [place] [address] Jun, [facility] [id number] [place] [address] Jul, [facility] [id number] [place] [address] Aug, [facility] [id number] [place] [address] 14 Aug, 2008 [facility] [id number] [place] [address] Oct, IMMUNIZATIONS No Known Immunizations SOCIAL HISTORY Never Assessed REASON FOR VISIT PLAN OF CARE VITAL SIGNS MEDICATIONS No [...]
--- OUTSIDE RECORDS SUMMARY | 2020-01-20 19:56 | XMS REPORT ---
Author Author Candace Santos Organization [facility] Address [address] [place] [address] Care Team Providers Care Adjuster Leader Name Role Phone ALSIIA Santos Unavailable PROBLEMS Type Condition ICD9-CM Code [id number] Code Onset Dates Condition S tatus SNOMED Code Problem Normal in first trimester Z34.91 Active 53252100 Problem Normal in second trimester Z34.92 Active 97125378 Problem Adjustment disorder with anxiety F43.22 Active 52558916 Problem Gender dysphoria F64.9 Active 934 82552 Problem Bipolar 1 disorder, manic, mild F31.11 Active 70686307 Problem Borderline personality disorder F60.3 Active 77899970 Problem Adjustment disorder with depressed mood F43.21 Active 644083300 Problem Mood disorder F39 Active 877875 05 Problem Anxiety F41.9 Active 82035266 Problem Seasonal allergies J30.2 Active 4 27058917 Problem Missed period N92.6 Active 578448 00 ALLERGIES No Information ENCOUNTERS Encounter Location Date Diagnosis [facility] [address] [facility] [id number] [address] [place] [address] Jul, [facility] [address] [facility] [id number] [address] [place] [address] Jul, [facility] [address] [facility] [id number] [address] [place] [address] Jul, [facility] [address] [facility] [id number] [address] [place] [address] Jun, Mood disorder F39 and Border line personality disorder F60.3 [facility] [address] [facility] [id number] [address] [place] [address] Jun, Mood disorder F39 [facility] [address] [facility] [id number] [address] [place] [address] 05 May, 2019 [facility] [address] [place] [id number] [address] [place] [address] 05 May, 2019 control counseling Z30 .09 and Encounter for Depo-Provera contraception Z30.42 [facility] [address] [place] [id number] [address] [place] [address] Apr, Lower abdominal pain R10.30 [place] [address] [address] 12 Nov, 2018 Mood disorder F39 and Gender dysphoria F64.9 [place] [address] [address] 24 Jul, 2018 Missed period N92.6 [place] [address] [address] Jul, Encounter for test , result unknown Z32.00 [place] [address] [address] Jul, Hand pain, right M79.641 [facility] [address] [address] May, Allergic rhinitis, unspecifi ed seasonality, unspecified trigger J30.9 [place] [address] [place] [id number] [place] [address] May, [place] [address] [place] [id number] [address] [place] [address] Apr, Mood disorder F39 [place] [address] [place] [id number] [address] [place] [address] Apr, Syncope, unspecified syncope type R55 and Dizziness R42 [place] [address] [place] [id number] [address] [place] [address] Mar, Adjustment disorder with dep ressed mood F43.21 and Anxiety F41.9 [facility] [address] [address] February, Seasonal allergies J30.2 [place] [id number] [address] February, [facility] [address] [address] Dec, Seasonal allergic rhinitis, unspecified trigger J30.2 and Sore throat J02.9 [place] [address] [address] Oct, Mood disorder F39 [place] [address] [address] Oct, Mood disorder F39 [place] [address] [address] Sep, Adjustment disorder with dep ressed mood F43.21 ; Screening cholesterol level Z13.220 and Screening for diabetes mellitus Z13.1 [place] [id number] [address] Sep, Adjustment disorder with anx iety F43.22 and Adjustment disorder with depressed mood F43.[address] [facility] IN [facility] [address] [address] 22 Aug, 2017 Pharyngitis due to other org anism J02.8 [facility] [address] [address] 10 Aug, 2017 Sore throat J02.9 and Acute nasopharyngitis (common cold) J00 [facility] [address] [address] 19 Mar, 2017 Acute nasopharyngitis J00 [place] [address] [address] 07 Mar, 2017 Adjustment disorder with anx iety F43.22 ; Adjustment disorder with depressed mood F43.21 and Bipolar 1 disorder, manic, mild F31.11 [place] [id number] [id number] [address] [place] [address] Mar, [facility] [address] [facility] [id number] [address] [place] [address] 08 Nov, 2016 39 weeks gestation of pregna ncy Z3A.39 [facility] [address] [facility] [id number] [address] [place] [address] Nov, care in third trime ster Z34.93 [facility] [address] [facility] [id number] [address] [place] [address] Oct, Normal in third tr imester Z34.93 [facility] [address] [id number] [address] [place] [address] Oct, [facility] [address] [facility] [id number] [address] [place] [address] Oct, Third trimester at less than 36 weeks Z33.1 [facility] [address] [facility] [id number] [address] [place] [address] Oct, [facility] [address] [id number] [place] [id number] Oct, [facility] [address] [facility] [id number] [address] [place] [address] Oct, Normal in third tr imester Z34.93 [facility] [address] [facility] [id number] [address] [place] [address] Sep, Normal in third tr imester Z34.93 [facility] [address] [facility] [id number] [address] [place] [address] Sep, Third trimester at less than 36 weeks Z33.1 and Encounter for immunization Z23 [facility] [address] [facility] [id number] [address] [place] [address] Aug, Adjustment disorder with anx iety F43.22 and Adjustment disorder with depressed mood F43.21 [facility] [address] [place] [id number] [address] [place] [address] 16 Aug, 2016 Abnormal glucose tolerance t est in O99.810 [facility] [address] [place] [id number] [address] [place] [address] Aug, [place] [address] [facility] [id number] [address] [place] [address] Aug, Normal in second [address] IN [facility] [address] [place] [id number] [address] [place] [address] Aug, Acute upper respiratory infe ction, unspecified J06.9 and Other viral agents as the cause of diseases classified elsewhere B97.89 [place] [id number] [place] [address] Jul, Adjustment disorder with dep ressed mood F43.21 and Bipolar 1 disorder, manic, mild F31.11 [place] [address] [place] [id number] [place] [address] Jul, Bipolar 1 disorder, manic, m ild F31.11 ; Adjustment disorder with anxiety F43.22 and Adjustment disorder with depressed mood F43.21 [place] [address] [place] [id number] [place] [address] Jul, Normal in second [facility] Z.[address] [facility] IN [facility] [address] [place] [id number] [address] [place] [address] Jul, Contact dermatitis, unspecif ied contact dermatitis type, unspecified trigger L25.9 [place] [address] [facility] [id number] [address] [place] [address] Jul, Adjustment disorder with dep ressed mood F43.21 ; Adjustment disorder with anxiety F43.22 and Bipolar 1 disorder, manic, mild F31.11 [facility] [address] [place] [id number] [place] [address] Jul, Adjustment disorder with dep ressed mood F43.21 and Bipolar 1 disorder, manic, mild F31.11 [facility] [address] [id number] [address] [place] [address] 26 Jun, 2016 Adjustment disorder with dep ressed mood F43.21 and Bipolar 1 disorder, manic, mild F31.11 [facility] [address] [id number] [address] [place] [address] 19 Jun, 2016 Adjustment disorder with dep ressed mood F43.21 ; Bipolar 1 disorder, manic, mild F31.11 and Anxiety, generalized F41.1 [facility] [address] [id number] [address] [place] [address] 19 Jun, 2016 Normal in second t rimester Z34.92 ; 18 weeks gestation of Z3A.18 and Encounter for immunization Z23 [facility] [address] [id number] [address] [place] [address] 07 Jun, 2016 Normal in first tr imester Z34.91 [facility] [address] [id number] [address] [place] [address] 24 May, 2016 care in second trim carlos Z34.92 [facility] [address] [id number] [address] [place] [address] May, [facility] [address] [id number] [address] [place] [address] May, [facility] [address] [id number] [address] [place] [address] 15 May, 2016 Major depressive disorder, r ecurrent, moderate F33.1 [facility] [address] [id number] [address] [place] [address] 10 May, 2016 Normal in first tr imester Z34.91 ; Pap smear for cervical cancer screening Z12.4 ; Screen for STD (sexually transmitted disease) Z11.3 and 12 weeks gestation of Z3A.12 [facility] [address] [id number] [address] [place] [address] 08 May, 2016 12 weeks gestation of pregna ncy Z3A.12 ; Unspecified abdominal pain R10.9 and Other specified related conditions, unspecified trimester O26.899 [facility] [address] [facility] [id number] [address] [place] [address] Apr, [facility] [address] [id number] [address] [place] [address] Apr, [facility] [address] [facility] [id number] [address] [place] [address] February, [place] [id number] [id number] [address] [place] [address] February, Bipolar 1 disorder, manic, m ild F31.11 and Adjustment disorder with depressed mood F43.21 [facility] [address] [facility] [id number] [address] [place] [address] Dec, Major depressive disorder, s ken episode, moderate F32.1 ; Adjustment disorder with depressed mood F43.21 and Bipolar 1 disorder, manic, mild F31.11 [place] [address] [facility] [id number] [address] [place] [address] Dec, Adjustment disorder with dep ressed mood F43.21 ; Major depressive disorder, single episode, moderate F32.1 and Bipolar 1 disorder, manic, mild F31.11 [place] [address] [facility] [id number] [address] [place] [address] Dec, Right hand pain M79.641 [facility] [address] [facility] [id number] [address] [place] [address] Dec, Major depressive disorder, s ken episode, moderate F32.1 and Adjustment disorder with depressed mood F43.21 [facility] [address] [facility] [id number] [address] [place] [address] Nov, Major depressive disorder, s ken episode, moderate F32.1 [facility] [address] [facility] [id number] [address] [place] [address] Nov, Adjustment disorder with dep ressed mood F43.21 ; Bipolar 1 disorder, manic, mild F31.11 and Adjustment disorder with anxiety F43.22 [place] [address] [address] Oct, [place] [address] [place] [id number] [place] [address] Oct, Encounter for counseling reg arding contraception Z30.9 ; Initiation of OCP (BCP) Z30.011 ; Routine screening for STI (sexually transmitted infection) Z11.3 and Dysmenorrhea N94.6 [place] [address] [address] Sep, Acute upper respiratory infe ction, unspecified J06.9 ; Other viral agents as the cause of diseases classified elsewhere B97.89 and Post-nasal drip R09.[address] [address] Aug, Depressive disorder, not els ewhere classified 311 [place] [address] [place] [id number] [address] [place] [address] Jul, Depression, major, recurrent , moderate F33.1 [place] [id number] [address] [place] [address] Jun, Major depressive disorder, r ecurrent episode, moderate 296.32 [place] [id number] [address] [place] [address] 04 Mar, 2015 Major depression, recurrent 296.30 [place] [address] [place] [id number] [place] [address] Jan, [place] [address] [address] Jan, [place] [address] [place] [id number] [address] [place] [address] Dec, [place] [address] [address] Dec, [facility] [address] [id number] [address] [place] [address], [place] [address] Nov, [facility] [address] [id number] [address] [place] [address], [place] [address] Nov, [facility] [address] [id number] [address] [place] [address], [place] [address] Oct, [facility] [address] [id number] [address] [place] [address], [place] [address] Oct, [facility] [address] [id number] [address] [place] [address], [place] [address] Sep, [facility] [address] [id number] [address] [place] [address], [place] [address] Sep, [facility] [address] [id number] [address] [place] [address], [place] [address] Sep, [facility] [address] [id number] [address] [place] [address], [place] [address] Sep, [facility] [address] [id number] [address] [place] [address], [place] [address] Sep, [facility] [address] [id number] [address] [place] [address], [place] [address] Sep, [facility] [address] [id number] [address] [place] [address], [place] [address] Aug, [facility] [address] [id number] [address] [place] [address], [place] [address] Aug, [facility] [address] [id number] [address] [place] [address], [place] [address] Aug, [facility] [address] [id number] [address] [place] [address], [place] [address] Aug, [facility] [address] [id number] [address] [place] [address], [place] [address] Jul, [facility] [address] [id number] [address] [place] [address], [place] [address] 17 Jul, 2014 [facility] [address] [id number] [address] [place] [address], [place] [address] 16 Jul, 2014 [facility] [address] [id number] [address] [place] [address], [place] [address] 16 Jul, 2014 [facility] [address] [id number] [address] [place] [address], [place] [address] 17 Jun, 2014 [facility] [address] [id number] [address] [place] [address], [place] [address] 17 Jun, 2014 [facility] [address] [id number] [address] [place] [address], [place] [address] 17 Jun, 2014 [facility] [address] [id number] [address] [place] [address], [place] [address] 17 Jun, 2014 [facility] [address] [id number] [address] [place] [address], [place] [address] 17 Apr, 2014 [facility] [address] [id number] [address] [place] [address], [place] [address] Apr, [facility] [address] [id number] [address] [place] [address], [place] [address] Mar, [facility] [address] [id number] [address] [place] [address], [place] [address] Mar, [facility] [address] [id number] [address] [place] [address], [place] [address] Mar, [facility] [address] [id number] [address] [place] [address], [place] [address] Mar, [facility] [address] [id number] [address] [place] [address], [place] [address] February, [facility] [address] [id number] [address] [place] [address], [place] [address] February, [facility] [address] [id number] [address] [place] [address], [place] [address] February, [facility] [address] [id number] [address] [place] [address], [place] [address] February, [facility] [address] [id number] [address] [place] [address], [place] [address] February, [facility] [address] [id number] [address] [place] [address], [place] [address] February, [facility] [address] [id number] [address] [place] [address], [place] [address] February, [facility] [address] [id number] [address] [place] [address], [place] [address] Jan, [facility] [address] [id number] [address] [place] [address], [place] [address] Jan, [facility] [address] [id number] [address] [place] [address], [place] [address] Jan, [facility] [address] [id number] [address] [place] [address], [place] [address] Jan, [facility] [address] [id number] [address] [place] [address], [place] [address] Jan, [facility] [address] [id number] [address] [place] [address], [place] [address] Jan, [facility] [address] [id number] [address] [place] [address], [place] [address] Jan, [facility] [address] [id number] [address] [place] [address], [place] [address] Jan, [facility] [address] [id number] [address] [place] [address], [place] [address] Oct, [facility] [address] [id number] [address] [place] [address], [place] [address] Oct, [facility] [address] [id number] [address] [place] [address], [place] [address] Sep, [facility] [address] [id number] [address] [place] [address], [place] [address] 31 Sep, 2013 [facility] [address] [id number] [address] [place] [address], [place] [address] 11 Jun, 2013 [facility] [address] [id number] [address] [place] [address], [place] [address] 04 Jun, 2013 [facility] [address] [id number] [address] [place] [address], [place] [address] 27 Oct, 2012 [facility] [address] [id number] [address] [place] [address], [place] [address] Sep, [facility] [address] [id number] [address] [place] [address], [place] [address] Sep, [facility] [address] [id number] [address] [place] [address], [place] [address] 26 Jun, 2012 [facility] [address] [id number] [address] [place] [address], [place] [address] 25 Jun, 2012 [facility] [address] [id number] [address] [place] [address], [place] [address] 24 Jun, 2012 [facility] [address] [id number] [address] [place] [address], [place] [address] 20 Jun, 2012 [facility] [address] [id number] [address] [place] [address], [place] [address] 20 Jun, 2012 [facility] [address] [id number] [address] [place] [address], [place] [address] 05 Jun, 2012 [facility] [address] [id number] [address] [place] [address], [place] [address] Apr, [facility] [address] [id number] [address] [place] [address], [place] [address] 29 Mar, 2012 [facility] [address] [id number] [address] [place] [address], [place] [phone] Mar, [facility] [address] [id number] [address] [place] [address], [place] [id number] 16 Dec, 2011 [facility] [address] [id number] [address] [place] [id number] Oct, [facility] [address] [id number] [address] [place] [phone] Aug, [facility] [address] [id number] [address] [place] [phone] Aug, [facility] [address] [id number] [address] [place] [phone] Aug, [facility] [address] [id number] [address] [place] [phone] Aug, [facility] [address] [id number] [address] [place] [phone] Aug, [facility] [address] [id number] [address] [place] [phone] Jul, [facility] [address] [id number] [address] [place] [phone] Jul, [facility] [address] [id number] [address] [place] [phone] Jun, [facility] [address] [id number] [address] [place] [phone] Jul, [facility] [address] [id number] [address] [place] [id number] Aug, [facility] [address] [id number] [address] [place] [phone] Aug, [facility] [address] [id number] [address] [place] [id number] Oct, IMMUNIZATIONS No Known Immunizations SOCIAL HISTORY Never Assessed REASON FOR VISIT PLAN OF CARE VITAL SIGNS MEDICATIONS Unknown Medications RESULTS No Results PROCEDURES Procedure Date Ordered Result Body Site PSYTX PT&/FAMILY 45 MINUTES Oct 19, 2014 INSTRUCTIONS MEDICATIONS ADMINISTERED No Known Medications [...]
--- OUTSIDE RECORDS SUMMARY | 2020-01-20 19:56 | XMS REPORT ---
Author Author Candace MEI Organization [facility] Address [address] [place] [address] Care Team Providers Care Personalized Living Assistant Name Role Phone NATE MEI Unavailable PROBLEMS Type Condition ICD9-CM Code HGM17-AD Code Onset Dates Condition S tatus SNOMED Code Problem Normal in first trimester Z34.91 Active 73553519 Problem Normal in second trimester Z34.92 Active 97723924 Problem Adjustment disorder with anxiety F43.22 Active 59608282 Problem Gender dysphoria F64.9 Active 934 34360 Problem Bipolar 1 disorder, manic, mild F31.11 Active 35541423 Problem Borderline personality disorder F60.3 Active 17805408 Problem Adjustment disorder with depressed mood F43.21 Active 777100721 Problem Mood disorder F39 Active 183018 05 Problem Anxiety F41.9 Active 52207049 Problem Seasonal allergies J30.2 Active 4 13488902 Problem Missed period N92.6 Active 261818 00 ALLERGIES No Information ENCOUNTERS Encounter Location Date Diagnosis [facility] [address] [id number] [place] [address] 05 Jun, 2019 Mood disorder F39 and Borderline persona lity disorder F60.3 [facility] [id number] [place] [address] 03 Jun, 2019 Mood disorder F39 [facility] [id number] [place] [address] May, [facility] [address] [address] May, control counseling Z30.09 and Enco unter for Depo-Provera contraception Z30.[address] [facility] [address] [facility] [id number] [address] [place] [address] Apr, Lower abdominal pain R10.30 [place] [address] [address] Nov, Mood disorder F39 and Gender dysphoria F 64.9 [place] [address] [address] Jul, Missed period N92.6 [place] [address] [address] Jul, Encounter for test, result unk nown Z32.00 [place] [address] [address] Jul, Hand pain, right M79.[address] [facility] [address] [place] [id number] [place] [address] May, Allergic rhinitis, unspecifi ed seasonality, unspecified trigger J30.9 [place] [address] [address] May, [place] [address] [address] Apr, Mood disorder F39 [place] [address] [address] Apr, Syncope, unspecified syncope type R55 an d Dizziness R42 [place] [address] [address] Mar, Adjustment disorder with depressed mood F43.21 and Anxiety F41.[address] [facility] [address] [place] [id number] [address] [place] [address] February, Seasonal allergies J30.2 [place] [address] [address] February, [facility] [address] [place] [id number] [address] [place] [address] Dec, Seasonal allergic rhinitis, unspecified trigger J30.2 and Sore throat J02.9 [place] [address] [address] Oct, Mood disorder F39 [facility] [address] [address] Oct, Mood disorder F39 [place] [address] [address] Sep, Adjustment disorder with depressed mood F43.21 ; Screening cholesterol level Z13.220 and Screening for diabetes mellitus Z13.1 [place] [address] [address] Sep, Adjustment disorder with anxiety F43.22 and Adjustment disorder with depressed mood F43.[address] [facility] [address] [address] 22 Aug, 2017 Pharyngitis due to other org anism J02.[address] [facility] [address] [address] 10 Aug, 2017 Sore throat J02.9 and Acute nasopharyngitis (common cold) J00 [facility] [address] [address] Mar, Acute nasopharyngitis J00 [place] [address] [address] 07 Mar, 2017 Adjustment disorder with anxiety F43.22 ; Adjustment disorder with depressed mood F43.21 and Bipolar 1 disorder, manic, mild F31.11 [place] [address] [address] Mar, [place] [address] [address] Nov, 39 weeks gestation of Z3A.39 [place] [address] [address] Nov, care in third trimester Z34.93 [place] [address] [address] Oct, Normal in third trimester Z34. 93 [facility] [address] [id number] [place] [address] Oct, [place] [id number] [place] [address] Oct, Third trimester at less than 3 6 weeks Z33.1 [place] [address] [id number] [place] [address] Oct, [facility] [address] [id number] [id number] Oct, [facility] [address] [id number] [place] [address] Oct, Normal in third trimester Z34. 93 [place] [address] [facility] [place] [address] Sep, Normal in third trimester Z34. 93 [place] [id number] [place] [address] Sep, Third trimester at less than 3 6 weeks Z33.1 and Encounter for immunization Z23 [place] [id number] [place] [address] 23 Aug, 2016 Adjustment disorder with anxiety F43.22 and Adjustment disorder with depressed mood F43.21 [address] [place] [address] 16 Aug, 2016 Abnormal glucose tolerance test in pregn gianfranco O99.810 [place] [address] [id number] [place] [address] Aug, [place] [id number] [place] [address] Aug, Normal in second trimester Z34 .92 [facility] [address] [facility] [id number] [place] [address] Aug, Acute upper respiratory infe ction, unspecified J06.9 and Other viral agents as the cause of diseases classified elsewhere B97.89 [place] [address] [address] Jul, Adjustment disorder with depressed mood F43.21 and Bipolar 1 disorder, manic, mild F31.11 [facility] [address] [address] Jul, Bipolar 1 disorder, manic, mild F31.11 ; Adjustment disorder with anxiety F43.22 and Adjustment disorder with depressed mood F43.21 [facility] [address] [address] Jul, Normal in second trimester Z34 .92 [facility] [address] [facility] [id number] [address] [place] [address] Jul, Contact dermatitis, unspecif ied contact dermatitis type, unspecified trigger L25.9 [facility] [address] [address] Jul, Adjustment disorder with depressed mood F43.21 ; Adjustment disorder with anxiety F43.22 and Bipolar 1 disorder, manic, mild F31.11 [place] [address] [address] Jul, Adjustment disorder with depressed mood F43.21 and Bipolar 1 disorder, manic, mild F31.11 [facility] [address] [address] Jun, Adjustment disorder with depressed mood F43.21 and Bipolar 1 disorder, manic, mild F31.11 [facility] [address] [address] Jun, Adjustment disorder with depressed mood F43.21 ; Bipolar 1 disorder, manic, mild F31.11 and Anxiety, generalized F41.1 [place] [address] [address] Jun, Normal in second trimester Z34 .92 ; 18 weeks gestation of Z3A.18 and Encounter for immunization Z23 [place] [address] [address] Jun, Normal in first trimester Z34. 91 [place] [address] [address] 24 May, 2016 care in second trimester Z34.92 [place] [address] [address] May, [place] [address] [address] May, [place] [address] [address] May, Major depressive disorder, recurrent, mo derate F33.[address] [address] 10 May, 2016 Normal in first trimester Z34. 91 ; Pap smear for cervical cancer screening Z12.4 ; Screen for STD (sexually transmitted disease) Z11.3 and 12 weeks gestation of Z3A.[address] [address] 08 May, 2016 12 weeks gestation of Z3A.12 ; Unspecified abdominal pain R10.9 and Other specified related conditions, unspecified trimester O26.899 [place] [address] [address] Apr, [place] [address] [address] Apr, [place] [address] [address] February, [address] [address] February, Bipolar 1 disorder, manic, mild F31.11 a nd Adjustment disorder with depressed mood F43.[address] [address] Dec, Major depressive disorder, single episod e, moderate F32.1 ; Adjustment disorder with depressed mood F43.21 and Bipolar 1 disorder, manic, mild F31.11 [place] [address] [address] Dec, Adjustment disorder with depressed mood F43.21 ; Major depressive disorder, single episode, moderate F32.1 and Bipolar 1 disorder, manic, mild F31.11 [place] [address] [address] Dec, Right hand pain M79.641 [place] [address] [address] Dec, Major depressive disorder, single episod e, moderate F32.1 and Adjustment disorder with depressed mood F43.21 [place] [address] [address] Nov, Major depressive disorder, single episod e, moderate F32.1 [place] [address] [address] Nov, Adjustment disorder with depressed mood F43.21 ; Bipolar 1 disorder, manic, mild F31.11 and Adjustment disorder with anxiety F43.22 [place] [address] [address] Oct, [address] [address] Oct, Encounter for counseling regarding contr aception Z30.9 ; Initiation of OCP (BCP) Z30.011 ; Routine screening for STI (sexually transmitted infection) Z11.3 and Dysmenorrhea N94.6 [place] [address] [address] Sep, Acute upper respiratory infection, unspe cified J06.9 ; Other viral agents as the cause of diseases classified elsewhere B97.89 and Post-nasal drip R09.82 [place] [address] [address] Aug, Depressive disorder, not elsewhere class ified [address] [address] Jul, Depression, major, recurrent, moderate F 33.1 [facility] [id number] [place] [address] 25 Jun, 2015 Major depressive disorder, recurrent epi sode, moderate 296.32 [facility] [id number] [place] [address] 04 Mar, 2015 Major depression, recurrent 296.30 [facility] [id number] [place] [address] Jan, [facility] [id number] [place] [address] Jan, [facility] [id number] [place] [address] Dec, [facility] [id number] [place] [address] Dec, [facility] [id number] [place] [address] Nov, [facility] [id number] [place] [address] Nov, [facility] [id number] [place] [address] Oct, [facility] [id number] [place] [address] Oct, [facility] [id number] [place] [address] Sep, [facility] [id number] [place] [address] Sep, [facility] [id number] [place] [address] Sep, [facility] [id number] [place] [address] Sep, [facility] [id number] [place] [address] Sep, [facility] [address] [place] [address] Sep, [facility] [address] [id number] [place] [address] Aug, [facility] [address] [id number] [place] [address] Aug, [facility] [address] [id number] [place] [address] Aug, [facility] [address] [id number] [place] [address] Aug, [facility] [address] [id number] [place] [address] Jul, [facility] [address] [id number] [place] [address] Jul, [facility] [address] [id number] [place] [address] Jul, [facility] [address] [id number] [place] [address] Jul, [facility] [address] [id number] [place] [address] Jun, [facility] [address] [id number] [place] [address] Jun, [facility] [address] [id number] [place] [address] Jun, [facility] [address] [id number] [place] [address] Jun, [facility] [address] [id number] [place] [address] Apr, [facility] [id number] [place] [address] Apr, [facility] [address] [id number] [place] [address] Mar, [facility] [address] [id number] [place] [address] Mar, [facility] [address] [id number] [place] [address] Mar, [facility] [address] [id number] [place] [address] Mar, [facility] [address] [id number] [place] [address] February, [facility] [address] [id number] [place] [address] February, [facility] [address] [id number] [place] [address] February, [facility] [address] [id number] [place] [address] February, [facility] [address] [id number] [place] [address] February, [facility] [address] [id number] [place] [address] February, [facility] [address] [id number] [place] [address] February, [facility] [address] [id number] [place] [address] Jan, [facility] [address] [id number] [place] [address] Jan, [facility] [address] [id number] [place] [address] Jan, [facility] [address] [id number] [place] [address] Jan, [facility] [address] [id number] [place] [address] Jan, [facility] [address] [id number] [place] [address] 14 Jan, 2014 [facility] [address] [id number] [place] [address] 11 Jan, 2014 [facility] [address] [id number] [place] [address] Jan, [facility] [address] [id number] [place] [address] Oct, [facility] [address] [id number] [place] [address] 14 Oct, 2013 [facility] [address] [id number] [place] [address] Sep, [facility] [address] [id number] [place] [address] Sep, [facility] [address] [facility] [id number] [place] [address] 11 Jun, 2013 [facility] [address] [id number] [place] [address] 04 Jun, 2013 [facility] [address] [id number] [place] [address] 27 Oct, 2012 [facility] [address] [id number] [place] [address] 08 Sep, 2012 [facility] [address] [id number] [place] [address] 08 Sep, 2012 [facility] [address] [id number] [place] [address] 26 Jun, 2012 [facility] [address] [id number] [place] [address] 25 Jun, 2011 [facility] [address] [id number] [place] [address] 24 Jun, 2011 [facility] [address] [id number] [place] [address] 20 Jun, 2011 [facility] [address] [id number] [place] [address] 20 Jun, 2011 [facility] [address] [id number] [place] [address] 05 Jun, 2012 [facility] [address] [id number] [place] [address] Apr, [facility] [id number] [place] [address] 29 Mar, 2012 [facility] [id number] [place] [address] 28 Mar, 2012 [facility] [id number] [place] [address] Dec, [facility] [id number] [place] [address] Oct, [facility] [id number] [place] [address] 15 Aug, 2011 [facility] [id number] [place] [address] Aug, [facility] [id number] [place] [address] Aug, [facility] [id number] [place] [address] Aug, [facility] [id number] [place] [address] Aug, [facility] [id number] [place] [address] Jul, [facility] [id number] [place] [address] Jul, [facility] [id number] [place] [address] Jun, [facility] [id number] [place] [address] Jul, [facility] [id number] [place] [address] Aug, [facility] [id number] [place] [address] 14 Aug, 2008 [facility] [id number] [place] [address] Oct, IMMUNIZATIONS No Known Immunizations SOCIAL HISTORY Never Assessed REASON FOR VISIT PLAN OF CARE VITAL SIGNS MEDICATIONS No Known Medications RESULTS No Results PROCEDURES Procedure Date Ordered Result Body Site PSYTX PT&/FAMILY 30 MINUTES March 24, 2014 INSTRUCTIONS MEDICATIONS ADMINISTERED No Known Medications [...]
--- OUTSIDE RECORDS SUMMARY | 2020-01-20 19:56 | XMS REPORT ---
Author Author Candace MEI Organization [facility] Address [address] [place] [address] Care Team Providers Care Environmental Advisor Name Role Phone NATE MEI Unavailable PROBLEMS Type Condition ICD9-CM Code OOL61-XE Code Onset Dates Condition S tatus SNOMED Code Problem Normal in first trimester Z34.91 Active 29964464 Problem Normal in second trimester Z34.92 Active 70919715 Problem Adjustment disorder with anxiety F43.22 Active 74857294 Problem Gender dysphoria F64.9 Active 934 81486 Problem Bipolar 1 disorder, manic, mild F31.11 Active 40406574 Problem Borderline personality disorder F60.3 Active 15419948 Problem Adjustment disorder with depressed mood F43.21 Active 030963673 Problem Mood disorder F39 Active 145694 05 Problem Anxiety F41.9 Active 92774853 Problem Seasonal allergies J30.2 Active 4 02697582 Problem Missed period N92.6 Active 518426 00 ALLERGIES No Information ENCOUNTERS Encounter Location Date Diagnosis [facility] [address] [address] Oct, [facility] [address] [address] Jun, Mood disorder F39 and Borderline persona lity disorder F60.3 [facility] [id number] [place] [address] Jun, Mood disorder F39 [facility] [address] [address] May, [facility] [address] [address] May, control counseling Z30.09 and Enco unter for Depo-Provera contraception Z30.42 [facility] [address] [place] [id number] [place] [address] Apr, Lower abdominal pain R10.30 [place] [address] [address] Nov, Mood disorder F39 and Gender dysphoria F 64.9 [place] [address] [address] Jul, Missed period N92.6 [place] [address] [address] Jul, Encounter for test, result unk nown Z32.00 [place] [address] [address] Jul, Hand pain, right M79.641 [facility] [address] May, Allergic rhinitis, unspecifi ed seasonality, unspecified trigger J30.9 [place] [address] [address] May, [place] [address] [address] Apr, Mood disorder F39 [place] [address] [address] Apr, Syncope, unspecified syncope type R55 an d Dizziness R42 [place] [address] [address] 14 Mar, 2018 Adjustment disorder with depressed mood F43.21 and Anxiety F41.9 [facility] [address] [place] [address] February, Seasonal allergies J30.2 [place] [address] [address] February, [facility] [address] [place] [address] Dec, Seasonal allergic rhinitis, unspecified trigger J30.2 and Sore throat J02.9 [facility] [address] [address] Oct, Mood disorder F39 [place] [address] [address] Oct, Mood disorder F39 [facility] [address] [address] Sep, Adjustment disorder with depressed mood F43.21 ; Screening cholesterol level Z13.220 and Screening for diabetes mellitus Z13.1 [place] [address] [address] Sep, Adjustment disorder with anxiety F43.22 and Adjustment disorder with depressed mood F43.21 [facility] [address] [address] 22 Aug, 2017 Pharyngitis due to other org anism J02.8 [facility] [address] [address] 10 Aug, 2017 Sore throat J02.9 and Acute nasopharyngitis (common cold) J00 [facility] [address] [address] 19 Mar, 2017 Acute nasopharyngitis J00 [place] [address] [address] 07 Mar, 2017 Adjustment disorder with anxiety F43.22 ; Adjustment disorder with depressed mood F43.21 and Bipolar 1 disorder, manic, mild F31.11 [place] [address] [address] Mar, [place] [address] [address] 08 Nov, 2016 39 weeks gestation of Z3A.39 [place] [address] [address] Nov, care in third trimester Z34.93 [place] [address] [facility] [place] [address] Oct, Normal in third trimester Z34. 93 [facility] [address] [place] [address] Oct, [facility] [id number] [place] [address] Oct, Third trimester at less than 3 6 weeks Z33.1 [facility] [id number] [place] [address] Oct, [facility] [address] [id number] [id number] Oct, [place] [id number] [place] [address] Oct, Normal in third trimester Z34. 93 [place] [address] [place] [address] Sep, Normal in third trimester Z34. 93 [facility] [id number] [place] [address] Sep, Third trimester at less than 3 6 weeks Z33.1 and Encounter for immunization Z23 [place] [id number] [place] [address] 23 Aug, 2016 Adjustment disorder with anxiety F43.22 and Adjustment disorder with depressed mood F43.21 [place] [address] [place] [address] Aug, Abnormal glucose tolerance test in pregn gianfranco O99.810 [facility] [address] [place] [address] Aug, [place] [address] [address] Aug, Normal in second trimester Z34 .92 [facility] [address] [facility] [id number] [address] [place] [address] Aug, Acute upper respiratory infe ction, unspecified J06.9 and Other viral agents as the cause of diseases classified elsewhere B97.89 [facility] [address] [address] Jul, Adjustment disorder with depressed mood F43.21 and Bipolar 1 disorder, manic, mild F31.11 [facility] [address] [address] Jul, Bipolar 1 disorder, manic, mild F31.11 ; Adjustment disorder with anxiety F43.22 and Adjustment disorder with depressed mood F43.21 [facility] [address] [address] 12 Jul, 2016 Normal in second trimester Z34 .92 [facility] [address] [facility] [id number] [address] [place] [address] Jul, Contact dermatitis, unspecif ied contact dermatitis type, unspecified trigger L25.9 [place] [address] [address] Jul, Adjustment disorder with depressed mood F43.21 ; Adjustment disorder with anxiety F43.22 and Bipolar 1 disorder, manic, mild F31.11 [place] [address] [address] Jul, Adjustment disorder with depressed mood F43.21 and Bipolar 1 disorder, manic, mild F31.11 [facility] [address] [address] Jun, Adjustment disorder with depressed mood F43.21 and Bipolar 1 disorder, manic, mild F31.11 [facility] [address] [address] Jun, Adjustment disorder with depressed mood F43.21 ; Bipolar 1 disorder, manic, mild F31.11 and Anxiety, generalized F41.1 [place] [address] [address] Jun, Normal in second trimester Z34 .92 ; 18 weeks gestation of Z3A.18 and Encounter for immunization Z23 [place] [address] [address] 07 Jun, 2016 Normal in first trimester Z34. 91 [place] [address] [address] 24 May, 2016 care in second trimester Z34.92 [place] [address] [address] 16 May, 2016 [place] [address] [address] May, [place] [address] [address] May, Major depressive disorder, recurrent, mo derate F33.[address] [address] 10 May, 2016 Normal in first trimester Z34. 91 ; Pap smear for cervical cancer screening Z12.4 ; Screen for STD (sexually transmitted disease) Z11.3 and 12 weeks gestation of Z3A.[address] [address] 08 May, 2016 12 weeks gestation of Z3A.12 ; Unspecified abdominal pain R10.9 and Other specified related conditions, unspecified trimester O26.899 [place] [address] [address] Apr, [address] [address] Apr, [place] [address] [address] February, [address] [address] February, Bipolar 1 disorder, manic, mild F31.11 a nd Adjustment disorder with depressed mood F43.[address] [address] Dec, Major depressive disorder, single episod e, moderate F32.1 ; Adjustment disorder with depressed mood F43.21 and Bipolar 1 disorder, manic, mild F31.11 [place] [address] [address] Dec, Adjustment disorder with depressed mood F43.21 ; Major depressive disorder, single episode, moderate F32.1 and Bipolar 1 disorder, manic, mild F31.11 [place] [address] [address] Dec, Right hand pain M79.641 [place] [address] [address] Dec, Major depressive disorder, single episod e, moderate F32.1 and Adjustment disorder with depressed mood F43.21 [place] [address] [address] Nov, Major depressive disorder, single episod e, moderate F32.1 [place] [address] [address] Nov, Adjustment disorder with depressed mood F43.21 ; Bipolar 1 disorder, manic, mild F31.11 and Adjustment disorder with anxiety F43.22 [place] [address] [address] Oct, [place] [address] [address] Oct, Encounter for counseling regarding contr aception Z30.9 ; Initiation of OCP (BCP) Z30.011 ; Routine screening for STI (sexually transmitted infection) Z11.3 and Dysmenorrhea N94.6 [place] [address] [address] Sep, Acute upper respiratory infection, unspe cified J06.9 ; Other viral agents as the cause of diseases classified elsewhere B97.89 and Post-nasal drip R09.[address] [address] Aug, Depressive disorder, not elsewhere class ified 311 [facility] [id number] [place] [address] Jul, Depression, major, recurrent, moderate F 33.1 [facility] [id number] [place] [address] Jun, Major depressive disorder, recurrent epi sode, moderate 296.32 [facility] [id number] [place] [address] Mar, Major depression, recurrent 296.30 [facility] [id number] [place] [address] Jan, [facility] [address] [address] Jan, [facility] [id number] [place] [address] Dec, [facility] [id number] [place] [address] Dec, [facility] [id number] [place] [address] Nov, [facility] [address] [address] Nov, [facility] [id number] [place] [address] Oct, [facility] [id number] [place] [address] Oct, [facility] [id number] [place] [address] Sep, [facility] [id number] [place] [address] Sep, [facility] [id number] [place] [address] Sep, [facility] [id number] [place] [address] Sep, [facility] [address] [address] [place] [address] Sep, [facility] [address] [id number] [place] [address] Sep, [facility] [address] [id number] [place] [address] Aug, [facility] [address] [id number] [place] [address] Aug, [facility] [address] [id number] [place] [address] Aug, [facility] [address] [id number] [place] [address] Aug, [facility] [address] [id number] [place] [address] Jul, [facility] [address] [id number] [place] [address] Jul, [facility] [address] [id number] [place] [address] Jul, [facility] [address] [id number] [place] [address] Jul, [facility] [address] [id number] [place] [address] Jun, [facility] [address] [id number] [place] [address] Jun, [facility] [address] [id number] [place] [address] Jun, [facility] [address] [id number] [place] [address] Jun, [facility] [id number] [place] [address] Apr, [facility] [address] [id number] [place] [address] Apr, [facility] [address] [id number] [place] [address] Mar, [facility] [address] [id number] [place] [address] Mar, [facility] [address] [id number] [place] [address] Mar, [facility] [address] [id number] [place] [address] Mar, [facility] [address] [id number] [place] [address] February, [facility] [address] [id number] [place] [address] February, [facility] [address] [id number] [place] [address] February, [facility] [address] [id number] [place] [address] February, [facility] [address] [id number] [place] [address] February, [facility] [address] [id number] [place] [address] February, [facility] [address] [id number] [place] [address] February, [facility] [address] [id number] [place] [address] Jan, [facility] [address] [id number] [place] [address] Jan, [facility] [address] [id number] [place] [address] Jan, [facility] [address] [id number] [place] [address] Jan, [facility] [address] [id number] [place] [address] Jan, [facility] [address] [id number] [place] [address] Jan, [facility] [address] [id number] [place] [address] 11 Jan, 2014 [facility] [address] [id number] [place] [address] Jan, [facility] [address] [id number] [place] [address] 14 Oct, 2013 [facility] [address] [id number] [place] [address] 14 Oct, 2013 [facility] [address] [id number] [place] [address] Sep, [facility] [address] [facility] [id number] [place] [address] Sep, [facility] [address] [id number] [place] [address] 11 Jun, 2013 [facility] [address] [id number] [place] [address] 04 Jun, 2013 [facility] [address] [id number] [place] [address] 27 Oct, 2012 [facility] [address] [id number] [place] [address] 08 Sep, 2012 [facility] [address] [id number] [place] [address] 08 Sep, 2012 [facility] [address] [id number] [place] [address] 26 Jun, 2011 [facility] [address] [id number] [place] [address] 25 Jun, 2011 [facility] [address] [id number] [place] [address] 24 Jun, 2011 [facility] [address] [id number] [place] [address] 20 Jun, 2011 [facility] [address] [id number] [place] [address] 20 Jun, 2011 [facility] [address] [id number] [place] [address] 05 Jun, 2011 [facility] [address] [id number] [place] [address] Apr, [facility] [address] [id number] [place] [address] Mar, [facility] [address] [id number] [place] [address] Mar, [facility] [id number] [place] [address] Dec, [facility] [id number] [place] [address] Oct, [facility] [address] [id number] [place] [address] Aug, [facility] [id number] [place] [address] Aug, [facility] [id number] [place] [address] Aug, [facility] [id number] [place] [address] Aug, [facility] [id number] [place] [address] Aug, [facility] [id number] [place] [address] 24 Jul, 2011 [facility] [id number] [place] [address] Jul, [facility] [id number] [place] [address] Jun, [facility] [address] [id number] [place] [address] Jul, [facility] [id number] [place] [address] Aug, [facility] [id number] [place] [address] 14 Aug, 2008 [facility] [id number] [place] [address] Oct, IMMUNIZATIONS No Known Immunizations SOCIAL HISTORY Never Assessed REASON FOR VISIT PLAN OF CARE VITAL SIGNS MEDICATIONS Unknown Medications RESULTS No Results PROCEDURES Procedure Date Ordered Result Body Site PSYCHO TESTING ADMIN BY COMP February 22, 2014 INSTRUCTIONS MEDICATIONS ADMINISTERED No Known Medications [...]
--- OUTSIDE RECORDS SUMMARY | 2020-01-20 19:57 | XMS REPORT ---
Author Author Candace Bhat [facility] [place] Address [address] [place] [address] Care Team Providers Care Hydrologist Name Role Phone GERALD Bhat Unavailable PROBLEMS Type Condition ICD9-CM Code [id number] Code Onset Dates Condition S tatus SNOMED Code Problem Bipolar 1 disorder, manic, mild F31.11 Active 30026038 Problem Normal in first trimester Z34.91 Active 79220419 Problem Normal in second trimester Z34.92 Active 47024016 Problem Missed period N92.6 Active 299016 00 Problem Adjustment disorder with depressed mood F43.21 Active 495585351 Problem Gender dysphoria F64.9 Active 934 80494 Problem Adjustment disorder with anxiety F43.22 Active 88372774 Problem Mood disorder F39 Active 874893 05 Problem Anxiety F41.9 Active 33268495 Problem Seasonal allergies J30.2 Active 4 [id number] ALLERGIES No Information ENCOUNTERS Encounter Location Date Diagnosis [facility] [address] [facility] [id number] [address] [place] [address] 05 May, 2019 [facility] [address] [facility] [id number] [address] [place] [address] 05 May, 2019 control counseling Z30 .09 and Encounter for Depo-Provera contraception Z30.42 [facility] [address] [facility] [id number] [address] [place] [address] Apr, Lower abdominal pain R10.30 [facility] [address] [facility] [id number] [address] [place] [address] 12 Nov, 2018 Mood disorder F39 and Gender dysphoria F64.9 [facility] [address] [facility] [id number] [address] [place] [address] Jul, Missed period N92.6 [place] [id number] [place] [id number] [address] [place] [address] Jul, Encounter for test , result unknown Z32.00 [place] [address] [address] Jul, Hand pain, right M79.641 [facility] WALK IN [facility] [id number] [place] [address] May, Allergic rhinitis, unspecifi ed seasonality, unspecified trigger J30.9 [place] [address] [address] May, [place] [address] [address] Apr, Mood disorder F39 [place] [address] [address] Apr, Syncope, unspecified syncope type R55 and Dizziness R42 [place] [address] [address] Mar, Adjustment disorder with dep ressed mood F43.21 and Anxiety F41.9 [facility] WALK IN [facility] [address] [address] February, Seasonal allergies J30.2 [place] [address] [address] February, [facility] WALK IN [facility] [address] [address] Dec, Seasonal allergic rhinitis, unspecified trigger J30.2 and Sore throat J02.9 [place] [address] [place] [id number] [place] [address] Oct, Mood disorder F39 [place] [address] [place] [id number] [address] [place] [address] Oct, Mood disorder F39 [place] [address] [address] Sep, Adjustment disorder with dep ressed mood F43.21 ; Screening cholesterol level Z13.220 and Screening for diabetes mellitus Z13.1 [place] [address] [address] Sep, Adjustment disorder with anx iety F43.22 and Adjustment disorder with depressed mood F43.21 [facility] [address] [address] Aug, Pharyngitis due to other org anism J02.8 [facility] WALK IN [facility] [address] [address] 10 Aug, 2017 Sore throat J02.9 and Acute nasopharyngitis (common cold) J00 [facility] WALK IN [facility] [address] [address] Mar, Acute nasopharyngitis J00 [place] [address] [address] 07 Mar, 2017 Adjustment disorder with anx iety F43.22 ; Adjustment disorder with depressed mood F43.21 and Bipolar 1 disorder, manic, mild F31.11 [place] [address] [address] Mar, [place] [address] [address] 08 Nov, 2016 39 weeks gestation of pregna ncy Z3A.39 [place] [address] [address] Nov, care in third trime ster Z34.93 [place] [address] [address] Oct, Normal in third tr imester Z34.93 [place] [address] [address] Oct, [facility] [address] [facility] [id number] [address] [place] [address] Oct, Third trimester at less than 36 weeks Z33.1 [facility] [address] [facility] [id number] [address] [place] [address] Oct, [facility] [address] [place] [id number] [place] [id number] Oct, [facility] [address] [facility] [id number] [address] [place] [address] Oct, Normal in third tr imester Z34.93 [place] [address] [place] [id number] [address] [place] [address] Sep, Normal in third tr imester Z34.93 [facility] [address] [facility] [id number] [address] [place] [address] Sep, Third trimester at less than 36 weeks Z33.1 and Encounter for immunization Z23 [facility] [address] [place] [id number] [address] [place] [address] 23 Aug, 2016 Adjustment disorder with anx iety F43.22 and Adjustment disorder with depressed mood F43.21 [place] [address] [place] [id number] [address] [place] [address] 16 Aug, 2016 Abnormal glucose tolerance t est in O99.810 [place] [address] [place] [id number] [address] [place] [address] Aug, [place] [address] [place] [id number] [address] [place] [address] Aug, Normal in second t rimester Z34.92 [facility] [address] [place] [id number] [address] [place] [address] Aug, Acute upper respiratory infe ction, unspecified J06.9 and Other viral agents as the cause of diseases classified elsewhere B97.89 [facility] [address] [place] [id number] [address] [place] [address] Jul, Adjustment disorder with dep ressed mood F43.21 and Bipolar 1 disorder, manic, mild F31.11 [facility] [address] [id number] [address] [place] [address] Jul, Bipolar 1 disorder, manic, m ild F31.11 ; Adjustment disorder with anxiety F43.22 and Adjustment disorder with depressed mood F43.21 [facility] [address] [id number] [address] [place] [address] Jul, Normal in second t rimester Z34.92 [facility] IN [facility] [address] [id number] [address] [place] [address] Jul, Contact dermatitis, unspecif ied contact dermatitis type, unspecified trigger L25.9 [facility] [address] [facility] [id number] [address] [place] [address] Jul, Adjustment disorder with dep ressed mood F43.21 ; Adjustment disorder with anxiety F43.22 and Bipolar 1 disorder, manic, mild F31.11 [facility] [address] [facility] [id number] [address] [place] [address] 04 Jul, 2016 Adjustment disorder with dep ressed mood F43.21 and Bipolar 1 disorder, manic, mild F31.11 [facility] [address] [facility] [id number] [address] [place] [address] 26 Jun, 2016 Adjustment disorder with dep ressed mood F43.21 and Bipolar 1 disorder, manic, mild F31.11 [facility] [address] [id number] [address] [place] [address] 19 Jun, 2016 Adjustment disorder with dep ressed mood F43.21 ; Bipolar 1 disorder, manic, mild F31.11 and Anxiety, generalized F41.1 [facility] [address] [id number] [address] [place] [address] 19 Jun, 2016 Normal in second t rimester Z34.92 ; 18 weeks gestation of Z3A.18 and Encounter for immunization Z23 [facility] [address] [id number] [address] [place] [address] 07 Jun, 2016 Normal in first tr imester Z34.91 [facility] [address] [id number] [address] [place] [address] 24 May, 2016 care in second trim carlos Z34.92 [facility] [address] [id number] [address] [place] [address] May, [facility] [address] [id number] [address] [place] [address] May, [facility] [address] [id number] [address] [place] [address] May, Major depressive disorder, r ecurrent, moderate F33.1 [place] [address] [facility] [id number] [address] [place] [address] May, Normal in first tr imester Z34.91 ; Pap smear for cervical cancer screening Z12.4 ; Screen for STD (sexually transmitted disease) Z11.3 and 12 weeks gestation of Z3A.12 [place] [address] [facility] [id number] [address] [place] [address] 08 May, 2016 12 weeks gestation of pregna ncy Z3A.12 ; Unspecified abdominal pain R10.9 and Other specified related conditions, unspecified trimester O26.899 [facility] [address] [facility] [id number] [address] [place] [address] Apr, [facility] [address] [id number] [address] [place] [address] Apr, [place] [address] [facility] [id number] [address] [place] [address] February, [facility] [address] [facility] [id number] [address] [place] [address] February, Bipolar 1 disorder, manic, m ild F31.11 and Adjustment disorder with depressed mood F43.21 [place] [address] [facility] [id number] [address] [place] [address] Dec, Major depressive disorder, s ken episode, moderate F32.1 ; Adjustment disorder with depressed mood F43.21 and Bipolar 1 disorder, manic, mild F31.11 [place] [address] [facility] [id number] [address] [place] [address] Dec, Adjustment disorder with dep ressed mood F43.21 ; Major depressive disorder, single episode, moderate F32.1 and Bipolar 1 disorder, manic, mild F31.11 [place] [address] [facility] [id number] [address] [place] [address] Dec, Right hand pain M79.641 [place] [address] [facility] [id number] [address] [place] [address] Dec, Major depressive disorder, s ken episode, moderate F32.1 and Adjustment disorder with depressed mood F43.21 [place] [address] [facility] [id number] [address] [place] [address] Nov, Major depressive disorder, s ken episode, moderate F32.1 [place] [address] [facility] [id number] [address] [place] [address] Nov, Adjustment disorder with dep ressed mood F43.21 ; Bipolar 1 disorder, manic, mild F31.11 and Adjustment disorder with anxiety F43.22 [place] [address] [place] [id number] [address] [place] [address] Oct, [place] [address] [place] [id number] [address] [place] [address] Oct, Encounter for counseling reg arding contraception Z30.9 ; Initiation of OCP (BCP) Z30.011 ; Routine screening for STI (sexually transmitted infection) Z11.3 and Dysmenorrhea N94.6 [place] [address] [facility] [id number] [address] [place] [address] Sep, Acute upper respiratory infe ction, unspecified J06.9 ; Other viral agents as the cause of diseases classified elsewhere B97.89 and Post-nasal drip R09.82 [facility] [address] [facility] [id number] [address] [place] [address] Aug, Depressive disorder, not els ewhere classified 311 [facility] [address] [facility] [id number] [address] [place] [address] Jul, Depression, major, recurrent , moderate F33.1 [facility] [address] [facility] [id number] [address] [place] [address] Jun, Major depressive disorder, r ecurrent episode, moderate 296.32 [facility] [address] [facility] [id number] [address] [place] [address] Mar, Major depression, recurrent 296.30 [facility] [address] [facility] [id number] [address] [place] [address] 14 Jan, 2015 [facility] [address] [facility] [id number] [address] [place] [address] Jan, [facility] [address] [facility] [id number] [address] [place] [address] Dec, [facility] [address] [facility] [id number] [address] [place] [address] Dec, [facility] [address] [place] [id number] [address] [place] [address] Nov, [facility] [address] [facility] [id number] [address] [place] [address] Nov, [facility] [address] [facility] [id number] [address] [place] [address] Oct, [facility] [address] [facility] [id number] [address] [place] [address] Oct, [facility] [address] [facility] [id number] [address] [place] [address] Sep, [facility] [address] [facility] [id number] [address] [place] [address] Sep, [facility] [address] [id number] [address] [place] [address], [place] [address] Sep, [facility] [address] [id number] [address] [place] [address], [place] [address] Sep, [facility] [address] [id number] [address] [place] [address], [place] [address] Sep, [facility] [address] [id number] [address] [place] [address], [place] [address] Sep, [facility] [address] [id number] [address] [place] [address], [place] [address] Aug, [facility] [address] [id number] [address] [place] [address], [place] [address] Aug, [facility] [address] [id number] [address] [place] [address], [place] [address] Aug, [facility] [address] [id number] [address] [place] [address], [place] [address] Aug, [facility] [address] [id number] [address] [place] [address], [place] [address] Jul, [facility] [address] [id number] [address] [place] [address], [place] [address] Jul, [facility] [address] [id number] [address] [place] [address], [place] [address] Jul, [facility] [address] [id number] [address] [place] [address] Jul, [facility] [address] [id number] [address] [place] [address], [place] [address] Jun, [facility] [address] [id number] [address] [place] [address], [place] [address] 17 Jun, 2014 [facility] [address] [id number] [address] [place] [address], [place] [address] Jun, [facility] [address] [id number] [address] [place] [address], [place] [address] Jun, [facility] [address] [id number] [address] [place] [address], [place] [address] Apr, [facility] [address] [id number] [address] [place] [address], [place] [address] Apr, [facility] [address] [id number] [address] [place] [address], [place] [address] Mar, [facility] [address] [id number] [address] [place] [address], [place] [address] Mar, [facility] [address] [id number] [address] [place] [address], [place] [address] Mar, [facility] [address] [id number] [address] [place] [address], [place] [address] Mar, [facility] [address] [id number] [address] [place] [address], [place] [address] February, [facility] [address] [id number] [address] [place] [address], [place] [address] February, [facility] [address] [id number] [address] [place] [address], [place] [address] February, [facility] [address] [id number] [address] [place] [address], [place] [address] February, [facility] [address] [id number] [address] [place] [address], [place] [address] February, [facility] [address] [id number] [address] [place] [address], [place] [address] February, [facility] [address] [id number] [address] [place] [address], [place] [address] February, [facility] [address] [id number] [address] [place] [address], [place] [address] Jan, [facility] [address] [id number] [address] [place] [address], [place] [address] Jan, [facility] [address] [id number] [address] [place] [address], [place] [address] 18 Jan, 2014 [facility] [address] [id number] [address] [place] [address], [place] [address] 18 Jan, 2014 [facility] [address] [id number] [address] [place] [address], [place] [address] 14 Jan, 2014 [facility] [address] [id number] [address] [place] [address], [place] [address] 14 Jan, 2014 [facility] [address] [id number] [address] [place] [address], [place] [address] Jan, [facility] [address] [id number] [address] [place] [address], [place] [address] Jan, [facility] [address] [id number] [address] [place] [address], [place] [address] Oct, [facility] [address] [id number] [address] [place] [address], [place] [address] Oct, [facility] [address] [id number] [address] [place] [address], [place] [address] Sep, [facility] [address] [id number] [address] [place] [address], [place] [address] Sep, [facility] [address] [id number] [address] [place] [address], [place] [address] Jun, [facility] [address] [id number] [address] [place] [address], [place] [address] 04 Jun, 2013 [facility] [address] [id number] [address] [place] [address], [place] [address] Oct, [facility] [address] [id number] [address] [place] [address], [place] [id number] Sep, [facility] [address] [id number] [address] [place] [address], [place] [address] Sep, [facility] [address] [id number] [address] [place] [address], [place] [address] 26 Jun, 2012 [facility] [address] [id number] [address] [place] [address], [place] [id number] 25 Jun, 2012 [facility] [address] [id number] [address] [place] [address], [place] [id number] 24 Jun, 2012 [facility] [address] [id number] [address] [place] [address], [place] [id number] 20 Jun, 2012 [facility] [address] [id number] [address] [place] [address], [place] [id number] 20 Jun, 2012 [facility] [address] [id number] [address] [place] [address], [place] [address] 05 Jun, 2012 [facility] [address] [id number] [address] [place] [address], [place] [address] Apr, [facility] [address] [id number] [address] [place] [address], [place] [address] 29 Mar, 2012 [facility] [address] [id number] [address] [place] [address], [place] [address] Mar, [facility] [address] [id number] [address] [place] [address], [place] [address] Dec, [facility] [address] [id number] [address] [place] [address], [place] [address] Oct, [facility] [address] [id number] [address] [place] [address], [place] [id number] 15 Aug, 2011 [facility] [address] [id number] [address] [place] [address], [place] [id number] Aug, [facility] [address] [id number] [address] [place] [address], [place] [id number] Aug, [facility] [address] [id number] [address] [place] [address], [place] [id number] Aug, [facility] [address] [id number] [address] [place] [address], [place] [id number] Aug, [facility] [address] [id number] [address] [place] [id number] 24 Jul, 2011 [facility] [address] [facility] [id number] [address] [place] [id number] Jul, [facility] [address] [facility] [id number] [address] [place] [id number] Jun, [facility] [address] [facility] [id number] [address] [place] [id number] Jul, [facility] [address] [facility] [id number] [address] [place] [id number] Aug, [facility] [address] [facility] [id number] [address] [place] [id number] 14 Aug, 2008 [facility] [address] [facility] [id number] [address] [place] [id number] Oct, IMMUNIZATIONS No Known Immunizations SOCIAL HISTORY [...]
--- OUTSIDE RECORDS SUMMARY | 2020-01-20 19:57 | XMS REPORT ---
Author Author Candace Santos Organization [facility] Address [address] [place] [address] Care Team Providers Care Certified Court/Medical Interpreter Name Role Phone ALISIA Santos Unavailable PROBLEMS Type Condition ICD9-CM Code [id number] Code Onset Dates Condition S tatus SNOMED Code Problem Bipolar 1 disorder, manic, mild F31.11 Active 71036985 Problem Normal in first trimester Z34.91 Active 68182406 Problem Normal in second trimester Z34.92 Active 67972329 Problem Missed period N92.6 Active 613833 00 Problem Adjustment disorder with depressed mood F43.21 Active 139786831 Problem Gender dysphoria F64.9 Active 934 83772 Problem Adjustment disorder with anxiety F43.22 Active 02738368 Problem Mood disorder F39 Active 083360 05 Problem Anxiety F41.9 Active 94661395 Problem Seasonal allergies J30.2 Active 4 [id number] ALLERGIES No Information ENCOUNTERS Encounter Location Date Diagnosis [facility] [address] [facility] [id number] [address] [place] [address] May, [facility] [address] [facility] [id number] [address] [place] [address] Apr, Lower abdominal pain R10.30 [facility] [address] [facility] [id number] [address] [place] [address] Nov, Mood disorder F39 and Gender dysphoria F64.9 [facility] [address] [facility] [id number] [address] [place] [address] Jul, Missed period N92.6 [facility] [address] [facility] [id number] [address] [place] [address] Jul, Encounter for test , result unknown Z32.00 [facility] [address] [address] Jul, Hand pain, right M79.641 [facility] [address] [address] May, Allergic rhinitis, unspecifi ed seasonality, unspecified trigger J30.9 [facility] [address] [phone] May, [facility] [address] [address] Apr, Mood disorder F39 [place] [address] [address] Apr, Syncope, unspecified syncope type R55 and Dizziness R42 [place] [address] [address] Mar, Adjustment disorder with dep ressed mood F43.21 and Anxiety F41.9 [facility] [address] [address] February, Seasonal allergies J30.2 [place] [address] [address] February, [facility] [address] [address] Dec, Seasonal allergic rhinitis, unspecified trigger J30.2 and Sore throat J02.9 [facility] [address] [address] Oct, Mood disorder F39 [facility] [address] [address] Oct, Mood disorder F39 [facility] [address] [address] Sep, Adjustment disorder with dep ressed mood F43.21 ; Screening cholesterol level Z13.220 and Screening for diabetes mellitus Z13.1 [facility] [address] [facility] [id number] [address] [place] [address] Sep, Adjustment disorder with anx iety F43.22 and Adjustment disorder with depressed mood F43.21 [facility] [address] [facility] [id number] [address] [place] [address] Aug, Pharyngitis due to other org anism J02.8 [facility] [address] [facility] [id number] [place] [address] 10 Aug, 2017 Sore throat J02.9 and Acute nasopharyngitis (common cold) J00 [facility] [address] [facility] [id number] [place] [address] Mar, Acute nasopharyngitis J00 [facility] [address] [place] [id number] [place] [address] 07 Mar, 2017 Adjustment disorder with anx iety F43.22 ; Adjustment disorder with depressed mood F43.21 and Bipolar 1 disorder, manic, mild F31.11 [facility] [address] [address] Mar, [place] [address] [address] 08 Nov, 2016 39 weeks gestation of pregna ncy Z3A.39 [place] [address] [address] Nov, care in third trime ster Z34.93 [facility] [address] [place] [id number] [address] [place] [address] Oct, Normal in third tr imester Z34.93 [facility] [address] [address] Oct, [place] [address] [address] Oct, Third trimester at less than 36 weeks Z33.1 [place] [address] [place] [id number] [address] [place] [address] Oct, [facility] [address] [place] [id number] [place] [id number] Oct, [facility] [address] [facility] [id number] [address] [place] [address] 11 Oct, 2016 Normal in third tr imester Z34.93 [facility] [address] [facility] [id number] [address] [place] [address] Sep, Normal in third tr imester Z34.93 [facility] [address] [facility] [id number] [address] [place] [address] 07 Sep, 2016 Third trimester at less than 36 weeks Z33.1 and Encounter for immunization Z23 [place] [address] [place] [id number] [address] [place] [address] Aug, Adjustment disorder with anx iety F43.22 and Adjustment disorder with depressed mood F43.21 [place] [address] [place] [id number] [address] [place] [address] Aug, Abnormal glucose tolerance t est in O99.810 [place] [address] [place] [id number] [address] [place] [address] Aug, [place] [address] [place] [id number] [address] [place] [address] Aug, Normal in second t rimester Z34.92 [facility] [address] [facility] [id number] [address] [place] [address] Aug, Acute upper respiratory infe ction, unspecified J06.9 and Other viral agents as the cause of diseases classified elsewhere B97.89 [facility] [address] [facility] [id number] [address] [place] [address] Jul, Adjustment disorder with dep ressed mood F43.21 and Bipolar 1 disorder, manic, mild F31.11 [place] [address] [place] [id number] [address] [place] [address] Jul, Bipolar 1 disorder, manic, m ild F31.11 ; Adjustment disorder with anxiety F43.22 and Adjustment disorder with depressed mood F43.21 [facility] [address] [id number] [address] [place] [address] Jul, Normal in [facility] Z34.92 [facility] IN [facility] [address] [id number] [address] [place] [address] Jul, Contact dermatitis, unspecif ied contact dermatitis type, unspecified trigger L25.9 [facility] [address] [id number] [address] [place] [address] Jul, Adjustment disorder with dep ressed mood F43.21 ; Adjustment disorder with anxiety F43.22 and Bipolar 1 disorder, manic, mild F31.11 [facility] [address] [id number] [address] [place] [address] Jul, Adjustment disorder with dep ressed mood F43.21 and Bipolar 1 disorder, manic, mild F31.11 [facility] [address] [id number] [address] [place] [address] Jun, Adjustment disorder with dep ressed mood F43.21 and Bipolar 1 disorder, manic, mild F31.11 [facility] [address] [id number] [address] [place] [address] Jun, Adjustment disorder with dep ressed mood F43.21 ; Bipolar 1 disorder, manic, mild F31.11 and Anxiety, generalized F41.1 [facility] [address] [id number] [address] [place] [address] Jun, Normal in [facility] Z34.92 ; 18 weeks gestation of Z3A.18 and Encounter for immunization Z23 [facility] [address] [id number] [address] [place] [address] 07 Jun, 2016 [facility] Z34.91 [facility] [address] [id number] [address] [place] [address] 24 May, 2016 care in second trim carlos Z34.92 [facility] [address] [facility] [id number] [address] [place] [address] May, [facility] [address] [facility] [id number] [address] [place] [address] May, [facility] [address] [facility] [id number] [address] [place] [address] May, Major depressive disorder, r ecurrent, moderate F33.1 [place] [address] [facility] [id number] [address] [place] [address] 10 May, 2016 Normal in first tr imester Z34.91 ; Pap smear for cervical cancer screening Z12.4 ; Screen for STD (sexually transmitted disease) Z11.3 and 12 weeks gestation of Z3A.12 [place] [address] [place] [id number] [address] [place] [address] 08 May, 2016 12 weeks gestation of pregna ncy Z3A.12 ; Unspecified abdominal pain R10.9 and Other specified related conditions, unspecified trimester O26.899 [place] [address] [facility] [id number] [address] [place] [address] Apr, [place] [address] [facility] [id number] [address] [place] [address] Apr, [place] [address] [place] [id number] [address] [place] [address] February, [place] [address] [facility] [id number] [address] [place] [address] February, Bipolar 1 disorder, manic, m ild F31.11 and Adjustment disorder with depressed mood F43.21 [facility] [address] [facility] [id number] [address] [place] [address] Dec, Major depressive disorder, s ken episode, moderate F32.1 ; Adjustment disorder with depressed mood F43.21 and Bipolar 1 disorder, manic, mild F31.11 [place] [address] [facility] [id number] [address] [place] [address] Dec, Adjustment disorder with dep ressed mood F43.21 ; Major depressive disorder, single episode, moderate F32.1 and Bipolar 1 disorder, manic, mild F31.11 [place] [address] [place] [id number] [address] [place] [address] Dec, Right hand pain M79.641 [place] [address] [place] [id number] [address] [place] [address] Dec, Major depressive disorder, s ken episode, moderate F32.1 and Adjustment disorder with depressed mood F43.21 [place] [address] [place] [id number] [place] [address] Nov, Major depressive disorder, s ken episode, moderate F32.1 [place] [address] [place] [id number] [place] [address] Nov, Adjustment disorder with dep ressed mood F43.21 ; Bipolar 1 disorder, manic, mild F31.11 and Adjustment disorder with anxiety F43.22 [place] [address] [place] [id number] [place] [address] Oct, [place] [address] [place] [id number] [place] [address] Oct, Encounter for counseling reg arding contraception Z30.9 ; Initiation of OCP (BCP) Z30.011 ; Routine screening for STI (sexually transmitted infection) Z11.3 and Dysmenorrhea N94.6 [place] [address] [place] [id number] [address] [place] [address] Sep, Acute upper respiratory infe ction, unspecified J06.9 ; Other viral agents as the cause of diseases classified elsewhere B97.89 and Post-nasal drip R09.82 [place] [address] [place] [id number] [address] [place] [address] Aug, Depressive disorder, not els ewhere classified 311 [facility] [address] [id number] [address] [place] [address] Jul, Depression, major, recurrent , moderate F33.1 [facility] [address] [id number] [address] [place] [address] 25 Jun, 2015 Major depressive disorder, r ecurrent episode, moderate 296.32 [facility] [address] [id number] [address] [place] [address] Mar, Major depression, recurrent 296.30 [facility] [address] [id number] [address] [place] [address] Jan, [facility] [address] [id number] [address] [place] [address] Jan, [facility] [address] [facility] [id number] [address] [place] [address] Dec, [facility] [address] [id number] [address] [place] [address] Dec, [facility] [address] [facility] [id number] [address] [place] [address] Nov, [facility] [address] [facility] [id number] [address] [place] [address] Nov, [facility] [address] [facility] [id number] [address] [place] [address] Oct, [facility] [address] [facility] [id number] [address] [place] [address] Oct, [facility] [address] [facility] [id number] [address] [place] [address] Sep, [facility] [address] [facility] [id number] [address] [place] [address] Sep, [facility] [address] [facility] [id number] [address] [place] [address] Sep, [facility] [address] [id number] [address] [place] [address] [place] [address] Sep, [facility] [address] [id number] [address] [place] [address], [place] [address] Sep, [facility] [address] [id number] [address] [place] [address], [place] [address] Sep, [facility] [address] [id number] [address] [place] [address], [place] [address] Aug, [facility] [address] [id number] [address] [place] [address], [place] [address] Aug, [facility] [address] [id number] [address] [place] [address], [place] [address] Aug, [facility] [address] [id number] [address] [place] [address], [place] [address] Aug, [facility] [address] [id number] [address] [place] [address], [place] [address] Jul, [facility] [address] [id number] [address] [place] [address], [place] [address] Jul, [facility] [address] [id number] [address] [place] [address], [place] [address] Jul, [facility] [address] [id number] [address] [place] [address], [place] [address] Jul, [facility] [address] [id number] [address] [place] [address], [place] [address] 17 Jun, 2014 [facility] [address] [id number] [address] [place] [address], [place] [address] 17 Jun, 2014 [facility] [address] [id number] [address] [place] [address], [place] [address] 17 Jun, 2014 [facility] [address] [id number] [address] [place] [address], [place] [address] 17 Jun, 2014 [facility] [address] [id number] [address] [place] [address], [place] [address] Apr, [facility] [address] [id number] [address] [place] [address], [place] [address] Apr, [facility] [address] [id number] [address] [place] [address], [place] [address] Mar, [facility] [address] [id number] [address] [place] [address], [place] [address] Mar, [facility] [address] [id number] [address] [place] [address], [place] [address] Mar, [facility] [address] [id number] [address] [place] [address], [place] [address] Mar, [facility] [address] [id number] [address] [place] [address], [place] [address] February, [facility] [address] [id number] [address] [place] [address], [place] [address] February, [facility] [address] [id number] [address] [place] [address], [place] [address] February, [facility] [address] [id number] [address] [place] [address], [place] [address] February, [facility] [address] [id number] [address] [place] [address], [place] [address] February, [facility] [address] [id number] [address] [place] [address], [place] [address] February, [facility] [address] [id number] [address] [place] [address], [place] [address] February, [facility] [address] [id number] [address] [place] [address], [place] [address] Jan, [facility] [address] [id number] [address] [place] [address], [place] [address] Jan, [facility] [address] [id number] [address] [place] [address], [place] [address] Jan, [facility] [address] [id number] [address] [place] [address], [place] [address] Jan, 2014 [facility] [address] [id number] [address] [place] [address], [place] [address] 14 Jan, 2014 [facility] [address] [id number] [address] [place] [address], [place] [address] 14 Jan, 2014 [facility] [address] [id number] [address] [place] [address], [place] [address] Jan, [facility] [address] [id number] [address] [place] [address], [place] [address] Jan, [facility] [address] [id number] [address] [place] [address], [place] [address] Oct, [facility] [address] [id number] [address] [place] [address], [place] [address] Oct, [facility] [address] [id number] [address] [place] [address], [place] [address] Sep, [facility] [address] [id number] [address] [place] [address], [place] [address] Sep, [facility] [address] [id number] [address] [place] [address], [place] [address] Jun, [facility] [address] [id number] [address] [place] [address], [place] [address] Jun, [facility] [address] [id number] [address] [place] [address], [place] [address] Oct, [facility] [address] [id number] [address] [place] [address], [place] [address] Sep, [facility] [address] [id number] [address] [place] [address], [place] [address] Sep, [facility] [address] [id number] [address] [place] [address], [place] [address] Jun, [facility] [address] [id number] [address] [place] [address], [place] [address] Jun, [facility] [address] [id number] [address] [place] [address], [place] [address] 24 Jun, 2012 [facility] [address] [id number] [address] [place] [address], [place] [address] 20 Jun, 2012 [facility] [address] [id number] [address] [place] [address], [place] [address] 20 Jun, 2012 [facility] [address] [id number] [address] [place] [address], [place] [address] 05 Jun, 2012 [facility] [address] [id number] [address] [place] [address], [place] [address] 12 Apr, 2012 [facility] [address] [id number] [address] [place] [address], [place] [address] 29 Mar, 2012 [facility] [address] [id number] [address] [place] [address], [place] [address] Mar, [facility] [address] [id number] [address] [place] [address], [place] [address] 16 Dec, 2011 [facility] [address] [id number] [address] [place] [address], [place] [address] Oct, [facility] [address] [id number] [address] [place] [address], [place] [address] 15 Aug, 2011 [facility] [address] [id number] [address] [place] [address], [place] [address] Aug, [facility] [address] [id number] [address] [place] [address], [place] [address] Aug, [facility] [address] [id number] [address] [place] [address], [place] [address] 07 Aug, 2011 [facility] [address] [id number] [address] [place] [address], [place] [address] Aug, [facility] [address] [id number] [address] [place] [address], [place] [address] 24 Jul, 2011 [facility] [address] [id number] [address] [place] [address], [place] [id number] Jul, [facility] [address] [facility] [id number] [address] [place] [id number] Jun, [facility] [address] [facility] [id number] [address] [place] [id number] Jul, [facility] [address] [facility] [id number] [address] [place] [id number] Aug, [facility] [address] [facility] [id number] [address] [place] [id number] Aug, [facility] [address] [facility] [id number] [address] [place] [id number] Oct, IMMUNIZATIONS No Known Immunizations SOCIAL HISTORY [...]
--- OUTSIDE RECORDS SUMMARY | 2020-01-20 19:57 | XMS REPORT ---
Author Author Cnadace Santos Organization [facility] Address [address] [place] [address] Care Team Providers Care Lost Charge Card Clerk Name Role Phone ALISIA Santos Unavailable PROBLEMS Type Condition ICD9-CM Code VUU81-EP Code Onset Dates Condition S tatus SNOMED Code Problem Bipolar 1 disorder, manic, mild F31.11 Active 54074401 Problem Normal in first trimester Z34.91 Active 81474094 Problem Normal in second trimester Z34.92 Active 81412251 Problem Missed period N92.6 Active 423249 00 Problem Adjustment disorder with depressed mood F43.21 Active 437206173 Problem Gender dysphoria F64.9 Active 934 20375 Problem Adjustment disorder with anxiety F43.22 Active 41664319 Problem Mood disorder F39 Active 501706 05 Problem Anxiety F41.9 Active 22330226 Problem Seasonal allergies J30.2 Active 4 [id number] ALLERGIES No Information ENCOUNTERS Encounter Location Date Diagnosis [facility] [address] [facility] [id number] [address] [place] [id number] 05 May, 2019 [facility] [address] [place] [id number] [address] [place] [id number] 05 May, 2019 control counseling Z30 .09 and Encounter for Depo-Provera contraception Z30.42 [facility] [address] [facility] [id number] [address] [place] [address] Apr, Lower abdominal pain R10.30 [facility] [address] [facility] [id number] [address] [place] [id number] 12 Nov, 2018 Mood disorder F39 and Gender dysphoria F64.9 [facility] [address] [facility] [id number] [address] [place] [address] Jul, Missed period N92.6 [place] [id number] [place] [address] Jul, Encounter for test , result unknown Z32.00 [place] [address] [address] Jul, Hand pain, right M79.641 [facility] [address] [address] May, Allergic rhinitis, unspecifi ed seasonality, unspecified trigger J30.9 [place] [address] [address] May, [place] [address] [address] Apr, Mood disorder F39 [place] [address] [address] Apr, Syncope, unspecified syncope type R55 and Dizziness R42 [place] [address] [address] Mar, Adjustment disorder with dep ressed mood F43.21 and Anxiety F41.9 [facility] [address] [address] February, Seasonal allergies J30.2 [place] [address] [address] February, [facility] [address] [address] Dec, Seasonal allergic rhinitis, unspecified trigger J30.2 and Sore throat J02.9 [place] [address] [place] [id number] [address] [place] [address] Oct, Mood disorder F39 [place] [address] [place] [id number] [address] [place] [address] Oct, Mood disorder F39 [place] [address] [address] Sep, Adjustment disorder with dep ressed mood F43.21 ; Screening cholesterol level Z13.220 and Screening for diabetes mellitus Z13.1 [place] [address] [address] Sep, Adjustment disorder with anx iety F43.22 and Adjustment disorder with depressed mood F43.21 [facility] [address] [address] Aug, Pharyngitis due to other org anism J02.8 [facility] IN [address] [address] 10 Aug, 2017 Sore throat J02.9 and Acute nasopharyngitis (common cold) J00 [facility] [address] [address] Mar, Acute nasopharyngitis J00 [place] [address] [address] 07 Mar, 2017 Adjustment disorder with anx iety F43.22 ; Adjustment disorder with depressed mood F43.21 and Bipolar 1 disorder, manic, mild F31.11 [place] [address] [address] Mar, [place] [address] [address] 08 Nov, 2016 39 weeks gestation of pregna ncy Z3A.39 [place] [address] [address] Nov, care in third trime ster Z34.93 [place] [address] [address] Oct, Normal in third tr imester Z34.93 [place] [address] [address] Oct, [facility] [address] [facility] [id number] [address] [place] [address] Oct, Third trimester at less than 36 weeks Z33.1 [facility] [address] [facility] [id number] [address] [place] [address] Oct, [facility] [address] [place] [id number] [place] [id number] Oct, [facility] [address] [facility] [id number] [address] [place] [address] Oct, Normal in third tr imester Z34.93 [place] [address] [facility] [id number] [address] [place] [address] Sep, Normal in third tr imester Z34.93 [facility] [address] [place] [id number] [address] [place] [address] Sep, Third trimester at less than 36 weeks Z33.1 and Encounter for immunization Z23 [facility] [address] [place] [id number] [address] [place] [id number] 23 Aug, 2016 Adjustment disorder with anx iety F43.22 and Adjustment disorder with depressed mood F43.21 [place] [address] [place] [id number] [address] [place] [address] Aug, Abnormal glucose tolerance t est in O99.810 [facility] [address] [place] [id number] [address] [place] [address] Aug, [place] [address] [place] [id number] [address] [place] [address] Aug, Normal in second t rimester Z34.92 [facility] [address] [facility] [id number] [address] [place] [address] Aug, Acute upper respiratory infe ction, unspecified J06.9 and Other viral agents as the cause of diseases classified elsewhere B97.89 [facility] [address] [place] [id number] [address] [place] [address] Jul, Adjustment disorder with dep ressed mood F43.21 and Bipolar 1 disorder, manic, mild F31.11 [facility] [address] [id number] [address] [place] [address] Jul, Bipolar 1 disorder, manic, m ild F31.11 ; Adjustment disorder with anxiety F43.22 and Adjustment disorder with depressed mood F43.21 [facility] [address] [id number] [address] [place] [address] Jul, Normal in second t [facility] Z34.92 [facility] [address] [id number] [address] [place] [address] Jul, Contact dermatitis, unspecif ied contact dermatitis type, unspecified trigger L25.9 [facility] [address] [facility] [id number] [address] [place] [phone] Jul, Adjustment disorder with dep ressed mood F43.21 ; Adjustment disorder with anxiety F43.22 and Bipolar 1 disorder, manic, mild F31.11 [facility] [address] [id number] [address] [place] [address] Jul, Adjustment disorder with dep ressed mood F43.21 and Bipolar 1 disorder, manic, mild F31.11 [facility] [address] [facility] [id number] [address] [place] [address] Jun, Adjustment disorder with dep ressed mood F43.21 and Bipolar 1 disorder, manic, mild F31.11 [facility] [address] [id number] [address] [place] [address] Jun, Adjustment disorder with dep ressed mood F43.21 ; Bipolar 1 disorder, manic, mild F31.11 and Anxiety, generalized F41.1 [facility] [address] [id number] [address] [place] [phone] Jun, Normal in second t [facility] Z34.92 ; 18 weeks gestation of Z3A.18 and Encounter for immunization Z23 [facility] [address] [id number] [address] [place] [address] 07 Jun, 2016 Normal in first tr imester Z34.91 [facility] [address] [id number] [address] [place] [address] 24 May, 2016 care in second trim carlos Z34.92 [facility] [address] [id number] [address] [place] [address] May, [facility] [address] [id number] [address] [place] [address] May, [place] [address] [facility] [id number] [address] [place] [address] May, Major depressive disorder, r ecurrent, moderate F33.1 [place] [address] [facility] [id number] [address] [place] [address] 10 May, 2016 Normal in first tr imester Z34.91 ; Pap smear for cervical cancer screening Z12.4 ; Screen for STD (sexually transmitted disease) Z11.3 and 12 weeks gestation of Z3A.12 [place] [address] [facility] [id number] [address] [place] [address] 08 May, 2016 12 weeks gestation of pregna ncy Z3A.12 ; Unspecified abdominal pain R10.9 and Other specified related conditions, unspecified trimester O26.899 [place] [address] [facility] [id number] [address] [place] [address] Apr, [place] [address] [id number] [address] [place] [address] Apr, [place] [address] [facility] [id number] [address] [place] [address] February, [place] [address] [facility] [id number] [address] [place] [address] February, Bipolar 1 disorder, manic, m ild F31.11 and Adjustment disorder with depressed mood F43.21 [place] [address] [place] [id number] [address] [place] [address] Dec, Major depressive disorder, s ken episode, moderate F32.1 ; Adjustment disorder with depressed mood F43.21 and Bipolar 1 disorder, manic, mild F31.11 [facility] [address] [facility] [id number] [address] [place] [address] Dec, Adjustment disorder with dep ressed mood F43.21 ; Major depressive disorder, single episode, moderate F32.1 and Bipolar 1 disorder, manic, mild F31.11 [place] [address] [facility] [id number] [address] [place] [address] Dec, Right hand pain M79.641 [place] [address] [place] [id number] [address] [place] [address] Dec, Major depressive disorder, s ken episode, moderate F32.1 and Adjustment disorder with depressed mood F43.21 [place] [address] [place] [id number] [address] [place] [address] Nov, Major depressive disorder, s ken episode, moderate F32.1 [place] [address] [place] [id number] [place] [address] Nov, Adjustment disorder with dep ressed mood F43.21 ; Bipolar 1 disorder, manic, mild F31.11 and Adjustment disorder with anxiety F43.22 [place] [address] [place] [id number] [address] [place] [address] Oct, [place] [address] [place] [id number] [place] [address] Oct, Encounter for counseling reg arding contraception Z30.9 ; Initiation of OCP (BCP) Z30.011 ; Routine screening for STI (sexually transmitted infection) Z11.3 and Dysmenorrhea N94.6 [place] [address] [place] [id number] [address] [place] [id number] Sep, Acute upper respiratory infe ction, unspecified J06.9 ; Other viral agents as the cause of diseases classified elsewhere B97.89 and Post-nasal drip R09.82 [facility] [address] [facility] [id number] [address] [place] [address] Aug, Depressive disorder, not els ewhere classified 311 [facility] [address] [facility] [id number] [address] [place] [phone] Jul, Depression, major, recurrent , moderate F33.1 [facility] [address] [facility] [id number] [address] [place] [address] Jun, Major depressive disorder, r ecurrent episode, moderate 296.32 [facility] [address] [place] [id number] [place] [address] Mar, Major depression, recurrent 296.30 [facility] [address] [facility] [id number] [address] [place] [phone] Jan, [facility] [address] [facility] [id number] [address] [place] [address] Jan, [facility] [address] [facility] [id number] [address] [place] [phone] Dec, [facility] [address] [place] [id number] [address] [place] [phone] Dec, [facility] [address] [place] [id number] [address] [place] [phone] Nov, [facility] [address] [facility] [id number] [address] [place] [address] Nov, [facility] [address] [facility] [id number] [address] [place] [phone] Oct, [facility] [address] [facility] [id number] [address] [place] [phone] Oct, [facility] [address] [facility] [id number] [address] [place] [phone] Sep, [facility] [address] [place] [id number] [address] [place] [phone] Sep, [facility] [address] [id number] [address] [place] [address], [place] [address] Sep, [facility] [address] [id number] [address] [place] [address], [place] [address] Sep, [facility] [address] [id number] [address] [place] [address], [place] [address] Sep, [facility] [address] [id number] [address] [place] [address], [place] [address] Sep, [facility] [address] [id number] [address] [place] [address], [place] [address] Aug, [facility] [address] [id number] [address] [place] [address], [place] [address] Aug, [facility] [address] [id number] [address] [place] [address], [place] [address] Aug, [facility] [address] [id number] [address] [place] [address], [place] [address] Aug, [facility] [address] [id number] [address] [place] [address], [place] [address] Jul, [facility] [address] [id number] [address] [place] [address], [place] [address] Jul, [facility] [address] [id number] [address] [place] [address], [place] [address] Jul, [facility] [address] [id number] [address] [place] [phone] Jul, [facility] [address] [id number] [address] [place] [address], [place] [address] Jun, [facility] [address] [id number] [address] [place] [address], [place] [address] 17 Jun, 2014 [facility] [address] [id number] [address] [place] [address], [place] [address] Jun, [facility] [address] [id number] [address] [place] [address], [place] [address] Jun, [facility] [address] [id number] [address] [place] [address], [place] [address] Apr, [facility] [address] [id number] [address] [place] [address], [place] [address] Apr, [facility] [address] [id number] [address] [place] [address], [place] [address] Mar, [facility] [address] [id number] [address] [place] [address], [place] [address] Mar, [facility] [address] [id number] [address] [place] [address], [place] [address] Mar, [facility] [address] [id number] [address] [place] [address], [place] [address] Mar, [facility] [address] [id number] [address] [place] [address], [place] [address] February, [facility] [address] [id number] [address] [place] [address], [place] [address] February, [facility] [address] [id number] [address] [place] [address], [place] [address] February, [facility] [address] [id number] [address] [place] [address], [place] [address] February, [facility] [address] [id number] [address] [place] [address], [place] [address] February, [facility] [address] [id number] [address] [place] [address], [place] [address] February, [facility] [address] [id number] [address] [place] [address], [place] [address] February, [facility] [address] [id number] [address] [place] [address], [place] [address] Jan, [facility] [address] [id number] [address] [place] [address], [place] [address] Jan, [facility] [address] [id number] [address] [place] [address], [place] [address] 18 Jan, 2014 [facility] [address] [id number] [address] [place] [address], [place] [address] 18 Jan, 2014 [facility] [address] [id number] [address] [place] [address], [place] [address] Jan, [facility] [address] [id number] [address] [place] [address], [place] [address] Jan, [facility] [address] [id number] [address] [place] [address], [place] [address] Jan, [facility] [address] [id number] [address] [place] [address], [place] [address] Jan, [facility] [address] [id number] [address] [place] [address], [place] [address] Oct, [facility] [address] [id number] [address] [place] [address], [place] [address] Oct, [facility] [address] [id number] [address] [place] [address], [place] [address] Sep, [facility] [address] [id number] [address] [place] [address], [place] [address] Sep, [facility] [address] [id number] [address] [place] [address], [place] [address] Jun, [facility] [address] [id number] [address] [place] [address], [place] [address] 04 Jun, 2013 [facility] [address] [id number] [address] [place] [address], [place] [address] Oct, [facility] [address] [id number] [address] [place] [address], [place] [address] Sep, [facility] [address] [id number] [address] [place] [address], [place] [address] Sep, [facility] [address] [id number] [address] [place] [address], [place] [address] 26 Jun, 2012 [facility] [address] [id number] [address] [place] [address], [place] [address] 25 Jun, 2012 [facility] [address] [id number] [address] [place] [address], [place] [address] 24 Jun, 2012 [facility] [address] [id number] [address] [place] [address], [place] [address] 20 Jun, 2012 [facility] [address] [id number] [address] [place] [address], [place] [address] 20 Jun, 2012 [facility] [address] [id number] [address] [place] [address], [place] [address] 05 Jun, 2012 [facility] [address] [id number] [address] [place] [address], [place] [address] Apr, [facility] [address] [id number] [address] [place] [address], [place] [address] 29 Mar, 2012 [facility] [address] [id number] [address] [place] [address], [place] [address] Mar, [facility] [address] [id number] [address] [place] [address], [place] [address] Dec, [facility] [address] [id number] [address] [place] [address], [place] [address] Oct, [facility] [address] [id number] [address] [place] [address], [place] [address] Aug, [facility] [address] [id number] [address] [place] [address], [place] [address] Aug, [facility] [address] [id number] [address] [place] [address], [place] [address] Aug, [facility] [address] [id number] [address] [place] [address], [place] [address] Aug, [facility] [address] [id number] [address] [place] [address], [place] [address] Aug, [facility] [address] [id number] [address] [place] [id number] 24 Jul, 2011 [facility] [address] [facility] [id number] [address] [place] [id number] Jul, [facility] [address] [facility] [id number] [address] [place] [id number] Jun, [facility] [address] [facility] [id number] [address] [place] [phone] Jul, [facility] [address] [facility] [id number] [address] [place] [phone] Aug, [facility] [address] [facility] [id number] [address] [place] [phone] Aug, [facility] [address] [facility] [id number] [address] [place] [id number] Oct, IMMUNIZATIONS No Known Immunizations SOCIAL HISTORY Never Assessed REASON FOR VISIT PLAN OF CARE VITAL SIGNS MEDICATIONS Unknown Medications RESULTS No Results PROCEDURES Procedure Date Ordered Result Body Site PSYTX PT&/FAMILY 45 MINUTES Oct 14, 2014 INSTRUCTIONS MEDICATIONS ADMINISTERED No Known Medications [...]
--- OUTSIDE RECORDS SUMMARY | 2020-01-20 19:57 | XMS REPORT ---
Author Author Candace Bhat [facility] Address [address] [place] [address] Care Team Providers Care [employer] Curer Name Role Phone GERALD Bhat Unavailable PROBLEMS Type Condition ICD9-CM Code JUI32-LG Code Onset Dates Condition S tatus SNOMED Code Problem Bipolar 1 disorder, manic, mild F31.11 Active 28257584 Problem Normal in first trimester Z34.91 Active 11494796 Problem Normal in second trimester Z34.92 Active 16912508 Problem Missed period N92.6 Active 882722 00 Problem Adjustment disorder with depressed mood F43.21 Active 961296766 Problem Gender dysphoria F64.9 Active 934 84187 Problem Adjustment disorder with anxiety F43.22 Active 55983213 Problem Mood disorder F39 Active 839176 05 Problem Anxiety F41.9 Active 78353489 Problem Seasonal allergies J30.2 Active 4 [id number] ALLERGIES No Information ENCOUNTERS Encounter Location Date Diagnosis [facility] [address] [facility] [id number] [address] [place] [address] Apr, Lower abdominal pain R10.30 [facility] [address] [facility] [id number] [address] [place] [address] 12 Nov, 2018 Mood disorder F39 and Gender dysphoria F64.9 [facility] [address] [facility] [id number] [address] [place] [address] Jul, Missed period N92.6 [facility] [address] [facility] [id number] [address] [place] [address] Jul, Encounter for test , result unknown Z32.00 [facility] [address] [id number] [address] [place] [address] Jul, Hand pain, right M79.641 [facility] [address] [place] [id number] [address] [place] [address] May, Allergic rhinitis, unspecifi ed seasonality, unspecified trigger J30.9 [facility] [address] [place] [id number] [address] [place] [address] May, [facility] [address] [address] Apr, Mood disorder F39 [place] [address] [address] Apr, Syncope, unspecified syncope type R55 and Dizziness R42 [place] [address] [address] Mar, Adjustment disorder with dep ressed mood F43.21 and Anxiety F41.9 [facility] [address] [address] February, Seasonal allergies J30.2 [place] [address] [address] February, [facility] [address] [address] Dec, Seasonal allergic rhinitis, unspecified trigger J30.2 and Sore throat J02.9 [place] [address] [address] Oct, Mood disorder F39 [place] [address] [address] Oct, Mood disorder F39 [place] [address] [address] Sep, Adjustment disorder with dep ressed mood F43.21 ; Screening cholesterol level Z13.220 and Screening for diabetes mellitus Z13.1 [place] [address] [place] [id number] [address] [place] [address] Sep, Adjustment disorder with anx iety F43.22 and Adjustment disorder with depressed mood F43.21 [facility] [address] [facility] [id number] [address] [place] [address] Aug, Pharyngitis due to other org anism J02.8 [facility] [address] [facility] [id number] [address] [place] [address] 10 Aug, 2017 Sore throat J02.9 and Acute nasopharyngitis (common cold) J00 [facility] [address] [id number] [address] [place] [address] 19 Mar, 2017 Acute nasopharyngitis J00 [place] [address] [id number] [address] [place] [address] 07 Mar, 2017 Adjustment disorder with anx iety F43.22 ; Adjustment disorder with depressed mood F43.21 and Bipolar 1 disorder, manic, mild F31.11 [place] [id number] [place] [address] Mar, [place] [address] [place] [id number] [address] [place] [address] Nov, 39 weeks gestation of pregna ncy Z3A.39 [place] [address] [place] [id number] [address] [place] [address] Nov, care in [facility] trime ster Z34.93 [place] [address] [place] [id number] [address] [place] [address] Oct, Normal in third tr imester Z34.93 [facility] [address] [id number] [address] [place] [address] Oct, [place] [address] [place] [id number] [address] [place] [address] Oct, Third trimester at less than 36 weeks Z33.1 [place] [address] [place] [id number] [address] [place] [address] Oct, [facility] [address] [place] [id number] [place] [id number] Oct, [facility] [address] [place] [id number] [address] [place] [address] Oct, Normal in third tr imester Z34.93 [facility] [address] [place] [id number] [address] [place] [address] Sep, Normal in third tr imester Z34.93 [facility] [address] [place] [id number] [address] [place] [address] Sep, Third trimester at less than 36 weeks Z33.1 and Encounter for immunization Z23 [place] [address] [place] [id number] [address] [place] [address] Aug, Adjustment disorder with anx iety F43.22 and Adjustment disorder with depressed mood F43.21 [place] [address] [place] [id number] [address] [place] [address] Aug, Abnormal glucose tolerance t est in O99.810 [facility] [address] [place] [id number] [address] [place] [address] Aug, [place] [address] [place] [id number] [address] [place] [address] Aug, Normal in second t rimester Z34.92 [facility] [address] [place] [id number] [address] [place] [address] Aug, Acute upper respiratory infe ction, unspecified J06.9 and Other viral agents as the cause of diseases classified elsewhere B97.89 [facility] [address] [place] [id number] [address] [place] [address] Jul, Adjustment disorder with dep ressed mood F43.21 and Bipolar 1 disorder, manic, mild F31.11 [facility] [address] [place] [id number] [address] [place] [address] Jul, Bipolar 1 disorder, manic, m ild F31.11 ; Adjustment disorder with anxiety F43.22 and Adjustment disorder with depressed mood F43.21 [facility] [address] [place] [address] Jul, Normal in second t rimester Z34.92 [facility] [address] [id number] [address] [place] [address] Jul, Contact dermatitis, unspecif ied contact dermatitis type, unspecified trigger L25.9 [facility] [address] [place] [id number] [address] [place] [address] Jul, Adjustment disorder with dep ressed mood F43.21 ; Adjustment disorder with anxiety F43.22 and Bipolar 1 disorder, manic, mild F31.11 [place] [address] [address] Jul, Adjustment disorder with dep ressed mood F43.21 and Bipolar 1 disorder, manic, mild F31.11 [facility] [address] [place] [id number] [address] [place] [address] Jun, Adjustment disorder with dep ressed mood F43.21 and Bipolar 1 disorder, manic, mild F31.11 [facility] [address] [place] [id number] [address] [place] [address] Jun, Adjustment disorder with dep ressed mood F43.21 ; Bipolar 1 disorder, manic, mild F31.11 and Anxiety, generalized F41.1 [facility] [address] [place] [id number] [address] [place] [address] Jun, Normal in second t rimester Z34.92 ; 18 weeks gestation of Z3A.18 and Encounter for immunization Z23 [facility] [address] [address] 07 Jun, 2016 Normal in first tr imester Z34.91 [facility] [address] [place] [id number] [address] [place] [address] May, care in second trim carlos Z34.92 [place] [address] [id number] [address] [place] [address] May, [place] [address] [id number] [address] [place] [address] May, [place] [address] [id number] [address] [place] [address] May, Major depressive disorder, r ecurrent, moderate F33.1 [place] [address] [id number] [address] [place] [address] May, Normal in first tr imester Z34.91 ; Pap smear for cervical cancer screening Z12.4 ; Screen for STD (sexually transmitted disease) Z11.3 and 12 weeks gestation of Z3A.12 [place] [address] [facility] [id number] [address] [place] [address] 08 May, 2016 12 weeks gestation of pregna ncy Z3A.12 ; Unspecified abdominal pain R10.9 and Other specified related conditions, unspecified trimester O26.899 [place] [address] [facility] [id number] [address] [place] [address] Apr, [place] [address] [facility] [id number] [address] [place] [address] Apr, [place] [address] [facility] [id number] [address] [place] [address] February, [place] [address] [id number] [address] [place] [address] February, Bipolar 1 disorder, manic, m ild F31.11 and Adjustment disorder with depressed mood F43.21 [place] [address] [facility] [id number] [address] [place] [address] Dec, Major depressive disorder, s ken episode, moderate F32.1 ; Adjustment disorder with depressed mood F43.21 and Bipolar 1 disorder, manic, mild F31.11 [place] [address] [place] [id number] [address] [place] [address] Dec, Adjustment disorder with dep ressed mood F43.21 ; Major depressive disorder, single episode, moderate F32.1 and Bipolar 1 disorder, manic, mild F31.11 [place] [address] [id number] [address] [place] [address] Dec, Right hand pain M79.641 [place] [address] [place] [id number] [address] [place] [address] Dec, Major depressive disorder, s ken episode, moderate F32.1 and Adjustment disorder with depressed mood F43.21 [place] [address] [facility] [id number] [address] [place] [address] Nov, Major depressive disorder, s ken episode, moderate F32.1 [place] [address] [id number] [address] [place] [address] Nov, Adjustment disorder with dep ressed mood F43.21 ; Bipolar 1 disorder, manic, mild F31.11 and Adjustment disorder with anxiety F43.22 [place] [address] [place] [id number] [address] [place] [address] Oct, [address] [place] [address] Oct, Encounter for counseling reg arding contraception Z30.9 ; Initiation of OCP (BCP) Z30.011 ; Routine screening for STI (sexually transmitted infection) Z11.3 and Dysmenorrhea N94.6 [place] [address] [place] [id number] [address] [place] [address] Sep, Acute upper respiratory infe ction, unspecified J06.9 ; Other viral agents as the cause of diseases classified elsewhere B97.89 and Post-nasal drip R09.82 [place] [address] [place] [id number] [address] [place] [address] Aug, Depressive disorder, not els ewhere classified 311 [place] [address] [place] [id number] [address] [place] [address] Jul, Depression, major, recurrent , moderate F33.1 [facility] [address] [id number] [address] [place] [address] Jun, Major depressive disorder, r ecurrent episode, moderate 296.32 [facility] [address] [id number] [address] [place] [address] 04 Mar, 2015 Major depression, recurrent 296.30 [facility] [address] [id number] [address] [place] [address] Jan, [facility] [address] [id number] [address] [place] [address] Jan, [facility] [address] [id number] [address] [place] [address] Dec, [facility] [address] [id number] [address] [place] [address] Dec, [facility] [address] [id number] [address] [place] [address] Nov, [facility] [address] [id number] [address] [place] [address] Nov, [facility] [address] [id number] [address] [place] [address] Oct, [facility] [address] [id number] [address] [place] [address] Oct, [facility] [address] [id number] [address] [place] [address] Sep, [facility] [address] [id number] [address] [place] [address] Sep, [facility] [address] [id number] [address] [place] [address] Sep, [facility] [address] [id number] [address] [place] [address] Sep, [facility] [address] [id number] [address] [place] [address], [place] [address] Sep, [facility] [address] [id number] [address] [place] [address], [place] [address] Sep, [facility] [address] [id number] [address] [place] [address], [place] [address] Aug, [facility] [address] [id number] [address] [place] [address], [place] [address] Aug, [facility] [address] [id number] [address] [place] [address], [place] [address] Aug, [facility] [address] [id number] [address] [place] [address], [place] [address] Aug, [facility] [address] [id number] [address] [place] [address], [place] [address] Jul, [facility] [address] [id number] [address] [place] [address], [place] [address] Jul, [facility] [address] [id number] [address] [place] [address], [place] [address] Jul, [facility] [address] [id number] [address] [place] [address], [place] [address] Jul, [facility] [address] [id number] [address] [place] [address], [place] [address] Jun, [facility] [address] [id number] [address] [place] [address], [place] [address] 17 Jun, 2014 [facility] [address] [id number] [address] [place] [address], [place] [address] 17 Jun, 2014 [facility] [address] [id number] [address] [place] [address], [place] [address] Jun, [facility] [address] [id number] [address] [place] [address], [place] [address] Apr, [facility] [address] [id number] [address] [place] [address], [place] [address] Apr, [facility] [address] [id number] [address] [place] [address], [place] [address] Mar, [facility] [address] [id number] [address] [place] [address], [place] [address] Mar, [facility] [address] [id number] [address] [place] [address], [place] [address] Mar, [facility] [address] [id number] [address] [place] [address], [place] [address] Mar, [facility] [address] [id number] [address] [place] [address], [place] [address] February, [facility] [address] [id number] [address] [place] [address], [place] [address] February, [facility] [address] [id number] [address] [place] [address], [place] [address] February, [facility] [address] [id number] [address] [place] [address], [place] [address] February, [facility] [address] [id number] [address] [place] [address], [place] [address] February, [facility] [address] [id number] [address] [place] [address], [place] [address] February, [facility] [address] [id number] [address] [place] [address], [place] [address] February, [facility] [address] [id number] [address] [place] [address], [place] [address] Jan, [facility] [address] [id number] [address] [place] [address], [place] [address] Jan, [facility] [address] [id number] [address] [place] [address], [place] [address] Jan, [facility] [address] [id number] [address] [place] [address], [place] [address] Jan, [facility] [address] [id number] [address] [place] [address], [place] [address] 14 Jan, 2014 [facility] [address] [id number] [address] [place] [address], [place] [address] 14 Jan, 2014 [facility] [address] [id number] [address] [place] [address], [place] [address] 11 Jan, 2014 [facility] [address] [id number] [address] [place] [address], [place] [address] Jan, [facility] [address] [id number] [address] [place] [address], [place] [address] 14 Oct, 2013 [facility] [address] [id number] [address] [place] [address], [place] [address] Oct, [facility] [address] [id number] [address] [place] [address], [place] [address] Sep, [facility] [address] [id number] [address] [place] [address], [place] [address] 31 Sep, 2013 [facility] [address] [id number] [address] [place] [address], [place] [address] 11 Jun, 2013 [facility] [address] [id number] [address] [place] [address], [place] [address] 04 Jun, 2013 [facility] [address] [id number] [address] [place] [address], [place] [address] Oct, [facility] [address] [id number] [address] [place] [address], [place] [address] 08 Sep, 2012 [facility] [address] [id number] [address] [place] [address], [place] [address] 08 Sep, 2012 [facility] [address] [id number] [address] [place] [address], [place] [address] 26 Jun, 2012 [facility] [address] [id number] [address] [place] [address], [place] [address] 25 Jun, 2012 [facility] [address] [id number] [address] [place] [address], [place] [address] 24 Jun, 2012 [facility] [address] [id number] [address] [place] [address], [place] [address] 20 Jun, 2012 [facility] [address] [id number] [address] [place] [address], [place] [address] 20 Jun, 2012 [facility] [address] [id number] [address] [place] [address], [place] [address] 05 Jun, 2012 [facility] [address] [id number] [address] [place] [address], [place] [address] Apr, [facility] [address] [id number] [address] [place] [address], [place] [address] Mar, [facility] [address] [id number] [address] [place] [address], [place] [address] Mar, [facility] [address] [id number] [address] [place] [address], [place] [address] Dec, [facility] [address] [id number] [address] [place] [address], [place] [address] Oct, [facility] [address] [id number] [address] [place] [address], [place] [address] 15 Aug, 2011 [facility] [address] [id number] [address] [place] [address], [place] [address] Aug, [facility] [address] [id number] [address] [place] [address], [place] [address] Aug, [facility] [address] [id number] [address] [place] [address], [place] [address] Aug, [facility] [address] [id number] [address] [place] [address], [place] [address] Aug, [facility] [address] [id number] [address] [place] [address], [place] [id number] 24 Jul, 2011 [facility] [address] [id number] [address] [place] [address], [place] [id number] 19 Jul, 2011 [facility] [address] [id number] [address] [place] [address], [place] [id number] Jun, [facility] [address] [facility] [id number] [address] [place] [id number] Jul, [facility] [address] [facility] [id number] [address] [place] [id number] Aug, [facility] [address] [facility] [id number] [address] [place] [id number] Aug, [facility] [address] [facility] [id number] [address] [place] [id number] Oct, IMMUNIZATIONS No Known Immunizations SOCIAL HISTORY [...]
--- OUTSIDE RECORDS SUMMARY | 2020-01-20 19:57 | XMS REPORT ---
Author Author Candace MEI Organization [facility] Address [address] [place] [address] Care Team Providers Care [employer]p [employer] Name Role Phone NATE MEI Unavailable PROBLEMS Type Condition ICD9-CM Code COC66-FP Code Onset Dates Condition S tatus SNOMED Code Problem Normal in first trimester Z34.91 Active 64604416 Problem Normal in second trimester Z34.92 Active 15824210 Problem Adjustment disorder with anxiety F43.22 Active 02334077 Problem Gender dysphoria F64.9 Active 934 49411 Problem Bipolar 1 disorder, manic, mild F31.11 Active 16646562 Problem Borderline personality disorder F60.3 Active 47252775 Problem Adjustment disorder with depressed mood F43.21 Active 020907180 Problem Mood disorder F39 Active 945023 05 Problem Anxiety F41.9 Active 08701009 Problem Seasonal allergies J30.2 Active 4 93169966 Problem Missed period N92.6 Active 639409 00 ALLERGIES No Information ENCOUNTERS Encounter Location Date Diagnosis [facility] [address] [facility] [id number] [address] [place] [address] Jul, [facility] [address] [facility] [facility] [id number] [address] [place] [address] Jul, [facility] [address] [facility] [id number] [address] [place] [address] Jun, [facility] [address] [facility] [id number] [address] [place] [address] Jun, [facility] [address] [facility] [id number] [address] [place] [address] Jun, Mood disorder F39 and Border line personality disorder F60.3 [facility] [address] [id number] [address] [place] [address] Jun, Mood disorder F39 [facility] [id number] [place] [address] May, [facility] [address] [place] [id number] [address] [place] [address] May, control counseling Z30 .09 and Encounter for Depo-Provera contraception Z30.42 [facility] [address] [place] [place] [id number] [address] [place] [address] Apr, Lower abdominal pain R10.30 [place] [address] [place] [id number] [address] [place] [address] 12 Nov, 2018 Mood disorder F39 and Gender dysphoria F64.9 [place] [address] [address] 24 Jul, 2018 Missed period N92.6 [place] [address] [address] Jul, Encounter for test , result unknown Z32.00 [place] [address] [place] [id number] [address] [place] [address] Jul, Hand pain, right M79.641 [facility] [address] [place] [address] May, Allergic rhinitis, unspecifi ed seasonality, unspecified trigger J30.9 [place] [address] [place] [id number] [address] [place] [address] May, [place] [address] [place] [id number] [address] [place] [address] Apr, Mood disorder F39 [place] [address] [place] [id number] [place] [address] Apr, Syncope, unspecified syncope type R55 and Dizziness R42 [place] [address] [place] [address] Mar, Adjustment disorder with dep ressed mood F43.21 and Anxiety F41.9 [facility] [address] [facility] [id number] [address] [place] [address] February, Seasonal allergies J30.2 [facility] [address] [id number] [address] [place] [address] February, [facility] [address] [id number] [address] [place] [address] Dec, Seasonal allergic rhinitis, unspecified trigger J30.2 and Sore throat J02.9 [facility] [address] [id number] [address] [place] [phone] Oct, Mood disorder F39 [place] [address] [facility] [id number] [address] [place] [address] Oct, Mood disorder F39 [place] [address] [place] [id number] [place] [address] Sep, Adjustment disorder with dep ressed mood F43.21 ; Screening cholesterol level Z13.220 and Screening for diabetes mellitus Z13.1 [facility] [address] [place] [id number] [address] [place] [address] Sep, Adjustment disorder with anx iety F43.22 and Adjustment disorder with depressed mood F43.21 [facility] [address] [address] [id number] [address] [place] [address] Aug, Pharyngitis due to other org anism J02.8 [facility] [address] [place] [address] [id number] [place] [address] 10 Aug, 2017 Sore throat J02.9 and Acute nasopharyngitis (common cold) J00 [facility] [address] [facility] [id number] [address] [place] [address] Mar, Acute nasopharyngitis J00 [facility] [address] [place] [id number] [address] [place] [phone] 07 Mar, 2017 Adjustment disorder with anx iety F43.22 ; Adjustment disorder with depressed mood F43.21 and Bipolar 1 disorder, manic, mild F31.11 [facility] [address] [id number] [address] [place] [address] Mar, [facility] [address] [id number] [address] [place] [address] 08 Nov, 2016 39 weeks gestation of pregna ncy Z3A.39 [facility] [address] [id number] [address] [place] [address] Nov, care in third trime ster Z34.93 [facility] [address] [id number] [address] [place] [address] Oct, Normal in third tr imester Z34.93 [facility] [address] [id number] [address] [place] [address] Oct, [facility] [address] [id number] [address] [place] [address] Oct, Third trimester at less than 36 weeks Z33.1 [facility] [address] [id number] [address] [place] [phone] Oct, [facility] [id number] [place] [id number] Oct, [facility] [address] [id number] [address] [place] [address] Oct, Normal in third tr imester Z34.93 [facility] [address] [id number] [address] [place] [address] Sep, Normal in third tr imester Z34.93 [facility] [address] [id number] [address] [place] [address] Sep, Third trimester at less than 36 weeks Z33.1 and Encounter for immunization Z23 [facility] [address] [id number] [address] [place] [address] Aug, Adjustment disorder with anx iety F43.22 and Adjustment disorder with depressed mood F43.21 [facility] [address] [id number] [address] [place] [address] 16 Aug, 2016 Abnormal glucose tolerance t est in O99.810 [facility] [address] [id number] [address] [place] [phone] 09 Aug, 2016 [facility] [address] [id number] [address] [place] [phone] Aug, Normal [facility] Z34.92 [facility] [address] [id number] [address] [place] [phone] Aug, Acute upper respiratory infe ction, unspecified J06.9 and Other viral agents as the cause of diseases classified elsewhere B97.89 [place] [address] [id number] [address] [place] [address] Jul, Adjustment disorder with dep ressed mood F43.21 and Bipolar 1 disorder, manic, mild F31.11 [place] [address] [facility] [id number] [address] [place] [address] 18 Jul, 2016 Bipolar 1 disorder, manic, m ild F31.11 ; Adjustment disorder with anxiety F43.22 and Adjustment disorder with depressed mood F43.21 [place] [address] [place] [id number] [address] [place] [address] Jul, Normal in second t [facility] Z34.92 [facility] [address] [id number] [address] [place] [phone] Jul, Contact dermatitis, unspecif ied contact dermatitis type, unspecified trigger L25.9 [place] [address] [facility] [id number] [address] [place] [address] Jul, Adjustment disorder with dep ressed mood F43.21 ; Adjustment disorder with anxiety F43.22 and Bipolar 1 disorder, manic, mild F31.11 [facility] [address] [id number] [address] [place] [address] Jul, Adjustment disorder with dep ressed mood F43.21 and Bipolar 1 disorder, manic, mild F31.11 [place] [address] [facility] [id number] [address] [place] [phone] Jun, Adjustment disorder with dep ressed mood F43.21 and Bipolar 1 disorder, manic, mild F31.11 [place] [address] [facility] [id number] [address] [place] [address] Jun, Adjustment disorder with dep ressed mood F43.21 ; Bipolar 1 disorder, manic, mild F31.11 and Anxiety, generalized F41.1 [place] [address] [place] [id number] [address] [place] [address] Jun, Normal in second t rimester Z34.92 ; 18 weeks gestation of Z3A.18 and Encounter for immunization Z23 [place] [address] [place] [id number] [address] [place] [address] Jun, Normal in first tr imester Z34.91 [place] [address] [id number] [address] [place] [address] May, care in second trim carlos Z34.92 [place] [address] [place] [id number] [address] [place] [phone] May, [place] [address] [place] [id number] [address] [place] [address] May, [place] [address] [place] [id number] [address] [place] [phone] May, Major depressive disorder, r ecurrent, moderate F33.1 [place] [address] [id number] [address] [place] [address] 10 May, 2016 Normal in first tr imester Z34.91 ; Pap smear for cervical cancer screening Z12.4 ; Screen for STD (sexually transmitted disease) Z11.3 and 12 weeks gestation of Z3A.12 [place] [address] [id number] [address] [place] [address] May, 12 weeks gestation of pregna ncy Z3A.12 ; Unspecified abdominal pain R10.9 and Other specified related conditions, unspecified trimester O26.899 [facility] [address] [id number] [address] [place] [address] Apr, [facility] [address] [id number] [address] [place] [address] Apr, [facility] [address] [id number] [address] [place] [address] February, [place] [address] [id number] [address] [place] [address] February, Bipolar 1 disorder, manic, m ild F31.11 and Adjustment disorder with depressed mood F43.21 [place] [address] [id number] [address] [place] [address] Dec, Major depressive disorder, s ken episode, moderate F32.1 ; Adjustment disorder with depressed mood F43.21 and Bipolar 1 disorder, manic, mild F31.11 [place] [address] [facility] [id number] [address] [place] [address] Dec, Adjustment disorder with dep ressed mood F43.21 ; Major depressive disorder, single episode, moderate F32.1 and Bipolar 1 disorder, manic, mild F31.11 [facility] [address] [id number] [address] [place] [address] Dec, Right hand pain M79.641 [facility] [address] [id number] [address] [place] [address] Dec, Major depressive disorder, s ken episode, moderate F32.1 and Adjustment disorder with depressed mood F43.21 [facility] [address] [id number] [address] [place] [address] Nov, Major depressive disorder, s ken episode, moderate F32.1 [place] [id number] [address] 22 Nov, 2015 Adjustment disorder with dep ressed mood F43.21 ; Bipolar 1 disorder, manic, mild F31.11 and Adjustment disorder with anxiety F43.22 [place] [address] [address] Oct, [place] [address] [address] Oct, Encounter for counseling reg arding contraception Z30.9 ; Initiation of OCP (BCP) Z30.011 ; Routine screening for STI (sexually transmitted infection) Z11.3 and Dysmenorrhea N94.6 [place] [address] [address] Sep, Acute upper respiratory infe ction, unspecified J06.9 ; Other viral agents as the cause of diseases classified elsewhere B97.89 and Post-nasal drip R09.82 [place] [address] [address] Aug, Depressive disorder, not els ewhere classified [address] [address] Jul, Depression, major, recurrent , moderate F33.1 [place] [address] [address] Jun, Major depressive disorder, r ecurrent episode, moderate 296.32 [place] [address] [address] 04 Mar, 2015 Major depression, recurrent 296.30 [place] [address] [address] 14 Jan, 2015 [place] [address] [address] Jan, [place] [address] [address] Dec, [facility] [address] [id number] [address] [place] [address], [place] [address] Dec, [facility] [address] [id number] [address] [place] [address], [place] [address] Nov, [facility] [address] [id number] [address] [place] [address], [place] [address] Nov, [facility] [address] [id number] [address] [place] [address], [place] [address] Oct, [facility] [address] [id number] [address] [place] [address], [place] [address] Oct, [facility] [address] [id number] [address] [place] [address], [place] [address] Sep, [facility] [address] [id number] [address] [place] [address], [place] [address] Sep, [facility] [address] [id number] [address] [place] [address], [place] [address] Sep, [facility] [address] [id number] [address] [place] [address], [place] [address] Sep, [facility] [address] [id number] [address] [place] [address], [place] [address] Sep, [facility] [address] [id number] [address] [place] [address], [place] [address] Sep, [facility] [address] [id number] [address] [place] [address], [place] [address] Aug, [facility] [address] [id number] [address] [place] [address], [place] [address] Aug, [facility] [address] [id number] [address] [place] [address], [place] [address] Aug, [facility] [address] [id number] [address] [place] [address], [place] [address] Aug, [facility] [address] [id number] [address] [place] [address], [place] [address] 17 Jul, 2014 [facility] [address] [id number] [address] [place] [address], [place] [address] 17 Jul, 2014 [facility] [address] [id number] [address] [place] [address], [place] [address] 16 Jul, 2014 [facility] [address] [id number] [address] [place] [address], [place] [address] 16 Jul, 2014 [facility] [address] [id number] [address] [place] [address], [place] [address] 17 Jun, 2014 [facility] [address] [id number] [address] [place] [address], [place] [address] 17 Jun, 2014 [facility] [address] [id number] [address] [place] [address], [place] [address] 17 Jun, 2014 [facility] [address] [id number] [address] [place] [address], [place] [address] Jun, [facility] [address] [id number] [address] [place] [address], [place] [address] Apr, [facility] [address] [id number] [address] [place] [address], [place] [address] Apr, [facility] [address] [id number] [address] [place] [address], [place] [address] Mar, [facility] [address] [id number] [address] [place] [address], [place] [address] Mar, [facility] [address] [id number] [address] [place] [address], [place] [address] Mar, [facility] [address] [id number] [address] [place] [address], [place] [address] Mar, [facility] [address] [id number] [address] [place] [address], [place] [address] February, [facility] [address] [id number] [address] [place] [address], [place] [address] February, [facility] [address] [id number] [address] [place] [address], [place] [address] February, [facility] [address] [id number] [address] [place] [address], [place] [address] February, [facility] [address] [id number] [address] [place] [address], [place] [address] February, [facility] [address] [id number] [address] [place] [address], [place] [address] February, [facility] [address] [id number] [address] [place] [address], [place] [address] February, [facility] [address] [id number] [address] [place] [address], [place] [address] Jan, [facility] [address] [id number] [address] [place] [address], [place] [address] Jan, [facility] [address] [id number] [address] [place] [address], [place] [address] Jan, [facility] [address] [id number] [address] [place] [address], [place] [address] Jan, [facility] [address] [id number] [address] [place] [address], [place] [address] Jan, [facility] [address] [id number] [address] [place] [address], [place] [address] Jan, [facility] [address] [id number] [address] [place] [address], [place] [address] Jan, [facility] [address] [id number] [address] [place] [address], [place] [address] Jan, [facility] [address] [id number] [address] [place] [address], [place] [address] Oct, [facility] [address] [id number] [address] [place] [address], [place] [address] Oct, [facility] [address] [id number] [address] [place] [address], [place] [address] Sep, [facility] [address] [id number] [address] [place] [address], [place] [address] 31 Sep, 2013 [facility] [address] [id number] [address] [place] [address], [place] [address] 11 Jun, 2013 [facility] [address] [id number] [address] [place] [address], [place] [address] 04 Jun, 2013 [facility] [address] [id number] [address] [place] [address], [place] [address] 27 Oct, 2012 [facility] [address] [id number] [address] [place] [address], [place] [address] Sep, [facility] [address] [id number] [address] [place] [address], [place] [address] 08 Sep, 2012 [facility] [address] [id number] [address] [place] [address], [place] [address] 26 Jun, 2012 [facility] [address] [id number] [address] [place] [address], [place] [address] 25 Jun, 2012 [facility] [address] [id number] [address] [place] [address], [place] [address] 24 Jun, 2012 [facility] [address] [id number] [address] [place] [address], [place] [address] 20 Jun, 2012 [facility] [address] [id number] [address] [place] [address], [place] [address] 20 Jun, 2012 [facility] [address] [id number] [address] [place] [address], [place] [phone] 05 Jun, 2012 [facility] [address] [id number] [address] [place] [address], [place] [id number] Apr, [facility] [address] [id number] [address] [place] [address], [place] [address] 29 Mar, 2012 [facility] [address] [id number] [address] [place] [address], [place] [address] Mar, [facility] [address] [id number] [address] [place] [phone] Dec, [facility] [address] [id number] [address] [place] [id number] Oct, [facility] [address] [id number] [address] [place] [phone] Aug, [facility] [address] [id number] [address] [place] [id number] Aug, [facility] [address] [id number] [address] [place] [phone] Aug, [facility] [address] [id number] [address] [place] [phone] Aug, [facility] [address] [id number] [address] [place] [phone] Aug, [facility] [address] [id number] [address] [place] [phone] Jul, [facility] [address] [id number] [address] [place] [phone] Jul, [facility] [address] [id number] [address] [place] [phone] Jun, [facility] [address] [id number] [address] [place] [phone] Jul, [facility] [address] [facility] [id number] [address] [place] [phone] Aug, [facility] [address] [id number] [address] [place] [phone] Aug, [facility] [address] [id number] [address] [place] [phone] Oct, IMMUNIZATIONS No Known Immunizations SOCIAL HISTORY [...]
--- OUTSIDE RECORDS SUMMARY | 2020-01-20 19:58 | XMS REPORT ---
Author Author Candace Romeo [facility] Address [address] [place] [address] Care Team Providers Care Sample Book Maker Name Role Phone TJ Romeo Unavailable PROBLEMS Type Condition ICD9-CM Code VXS29-CP Code Onset Dates Condition S tatus SNOMED Code Problem Bipolar 1 disorder, manic, mild F31.11 Active 04213354 Problem Normal in first trimester Z34.91 Active 51474877 Problem Normal in second trimester Z34.92 Active 24335425 Problem Missed period N92.6 Active 348431 00 Problem Adjustment disorder with depressed mood F43.21 Active 722059670 Problem Gender dysphoria F64.9 Active 934 54636 Problem Adjustment disorder with anxiety F43.22 Active 54947112 Problem Mood disorder F39 Active 655912 05 Problem Anxiety F41.9 Active 36994216 Problem Seasonal allergies J30.2 Active 4 [id number] ALLERGIES No Information ENCOUNTERS Encounter Location Date Diagnosis [facility] [address] [facility] [id number] [address] [place] [address] May, [facility] [address] [facility] [id number] [address] [place] [address] Apr, Lower abdominal pain R10.30 [facility] [address] [facility] [id number] [address] [place] [address] Nov, Mood disorder F39 and Gender dysphoria F64.9 [facility] [address] [facility] [id number] [address] [place] [address] Jul, Missed period N92.6 [facility] [address] [facility] [id number] [address] [place] [address] Jul, Encounter for test , result unknown Z32.00 [facility] [address] [address] Jul, Hand pain, right M79.641 [facility] [address] [address] May, Allergic rhinitis, unspecifi ed seasonality, unspecified trigger J30.9 [facility] [address] [address] May, [facility] [address] [address] Apr, Mood disorder F39 [place] [address] [address] Apr, Syncope, unspecified syncope type R55 and Dizziness R42 [place] [address] [address] Mar, Adjustment disorder with dep ressed mood F43.21 and Anxiety F41.9 [facility] [address] [address] February, Seasonal allergies J30.2 [place] [address] [address] February, [facility] [address] [address] Dec, Seasonal allergic rhinitis, unspecified trigger J30.2 and Sore throat J02.9 [facility] [address] [address] Oct, Mood disorder F39 [place] [address] [address] Oct, Mood disorder F39 [place] [address] [address] Sep, Adjustment disorder with dep ressed mood F43.21 ; Screening cholesterol level Z13.220 and Screening for diabetes mellitus Z13.1 [place] [address] [place] [id number] [address] [place] [address] Sep, Adjustment disorder with anx iety F43.22 and Adjustment disorder with depressed mood F43.21 [facility] [address] [id number] [address] [place] [address] 22 Aug, 2017 Pharyngitis due to other org anism J02.8 [facility] [address] [facility] [id number] [address] [place] [address] 10 Aug, 2017 Sore throat J02.9 and Acute nasopharyngitis (common cold) J00 [facility] [address] [facility] [id number] [address] [place] [address] Mar, Acute nasopharyngitis J00 [facility] [address] [facility] [id number] [address] [place] [address] 07 Mar, 2017 Adjustment disorder with anx iety F43.22 ; Adjustment disorder with depressed mood F43.21 and Bipolar 1 disorder, manic, mild F31.11 [place] [address] [facility] [id number] [address] [place] [address] Mar, [place] [address] [address] 08 Nov, 2016 39 weeks gestation of pregna ncy Z3A.39 [place] [address] [place] [id number] [address] [place] [address] Nov, care in third trime ster Z34.93 [place] [address] [facility] [id number] [address] [place] [address] Oct, Normal in third tr imester Z34.93 [place] [address] [facility] [id number] [address] [place] [address] Oct, [place] [address] [facility] [id number] [address] [place] [address] Oct, Third trimester at less than 36 weeks Z33.1 [place] [address] [place] [address] [address] Oct, [facility] [id number] [place] [id number] Oct, [facility] [address] [facility] [id number] [address] [place] [address] Oct, Normal in third tr imester Z34.93 [facility] [address] [place] [id number] [address] [place] [address] Sep, Normal in third tr imester Z34.93 [facility] [address] [place] [address] Sep, Third trimester at less than 36 weeks Z33.1 and Encounter for immunization Z23 [facility] [address] [place] [id number] [address] [place] [address] 23 Aug, 2016 Adjustment disorder with anx iety F43.22 and Adjustment disorder with depressed mood F43.21 [facility] [address] [place] [address] Aug, Abnormal glucose tolerance t est in O99.810 [facility] [address] [place] [id number] [address] [place] [address] Aug, [facility] [address] [place] [address] Aug, Normal in second t rimester Z34.92 [facility] [address] [place] [id number] [address] [place] [address] Aug, Acute upper respiratory infe ction, unspecified J06.9 and Other viral agents as the cause of diseases classified elsewhere B97.89 [facility] [address] [place] [id number] [address] [place] [address] Jul, Adjustment disorder with dep ressed mood F43.21 and Bipolar 1 disorder, manic, mild F31.11 [facility] [address] [place] [id number] [address] [place] [address] Jul, Bipolar 1 disorder, manic, m ild F31.11 ; Adjustment disorder with anxiety F43.22 and Adjustment disorder with depressed mood F43.21 [facility] [address] [id number] [address] [place] [address] Jul, Normal in second t [facility] Z34.92 [facility] [address] [id number] [address] [place] [address] Jul, Contact dermatitis, unspecif ied contact dermatitis type, unspecified trigger L25.9 [facility] [address] [id number] [address] [place] [address] Jul, Adjustment disorder with dep ressed mood F43.21 ; Adjustment disorder with anxiety F43.22 and Bipolar 1 disorder, manic, mild F31.11 [facility] [address] [id number] [address] [place] [address] Jul, Adjustment disorder with dep ressed mood F43.21 and Bipolar 1 disorder, manic, mild F31.11 [facility] [address] [id number] [address] [place] [address] Jun, Adjustment disorder with dep ressed mood F43.21 and Bipolar 1 disorder, manic, mild F31.11 [facility] [address] [facility] [id number] [address] [place] [address] Jun, Adjustment disorder with dep ressed mood F43.21 ; Bipolar 1 disorder, manic, mild F31.11 and Anxiety, generalized F41.1 [facility] [address] [id number] [address] [place] [id number] 19 Jun, 2016 Normal in second t [facility] Z34.92 ; 18 weeks gestation of Z3A.18 and Encounter for immunization Z23 [facility] [address] [id number] [address] [place] [address] 07 Jun, 2016 Normal in first tr ester Z34.91 [facility] [address] [id number] [address] [place] [address] May, care in second trim carlos Z34.92 [facility] [address] [facility] [id number] [address] [place] [address] May, [facility] [address] [facility] [id number] [address] [place] [phone] May, [facility] [address] [facility] [id number] [address] [place] [address] May, Major depressive disorder, r ecurrent, moderate F33.1 [facility] [address] [facility] [id number] [address] [place] [address] 10 May, 2016 Normal in first tr imester Z34.91 ; Pap smear for cervical cancer screening Z12.4 ; Screen for STD (sexually transmitted disease) Z11.3 and 12 weeks gestation of Z3A.12 [place] [address] [place] [id number] [address] [place] [address] 08 May, 2016 12 weeks gestation of pregna ncy Z3A.12 ; Unspecified abdominal pain R10.9 and Other specified related conditions, unspecified trimester O26.899 [place] [address] [facility] [id number] [address] [place] [address] Apr, [facility] [address] [facility] [id number] [address] [place] [address] Apr, [place] [address] [facility] [id number] [address] [place] [phone] February, [place] [address] [facility] [id number] [address] [place] [address] February, Bipolar 1 disorder, manic, m ild F31.11 and Adjustment disorder with depressed mood F43.21 [facility] [address] [facility] [id number] [address] [place] [address] Dec, Major depressive disorder, s ken episode, moderate F32.1 ; Adjustment disorder with depressed mood F43.21 and Bipolar 1 disorder, manic, mild F31.11 [place] [address] [facility] [id number] [address] [place] [address] Dec, Adjustment disorder with dep ressed mood F43.21 ; Major depressive disorder, single episode, moderate F32.1 and Bipolar 1 disorder, manic, mild F31.11 [place] [address] [facility] [id number] [address] [place] [address] Dec, Right hand pain M79.641 [place] [address] [facility] [id number] [address] [place] [address] Dec, Major depressive disorder, s ken episode, moderate F32.1 and Adjustment disorder with depressed mood F43.21 [place] [address] [facility] [id number] [address] [place] [address] Nov, Major depressive disorder, s ken episode, moderate F32.1 [place] [address] [place] [id number] [place] [address] Nov, Adjustment disorder with dep ressed mood F43.21 ; Bipolar 1 disorder, manic, mild F31.11 and Adjustment disorder with anxiety F43.22 [place] [address] [place] [id number] [place] [address] Oct, [place] [address] [place] [id number] [place] [address] Oct, Encounter for counseling reg arding contraception Z30.9 ; Initiation of OCP (BCP) Z30.011 ; Routine screening for STI (sexually transmitted infection) Z11.3 and Dysmenorrhea N94.6 [place] [address] [place] [id number] [address] [place] [address] Sep, Acute upper respiratory infe ction, unspecified J06.9 ; Other viral agents as the cause of diseases classified elsewhere B97.89 and Post-nasal drip R09.82 [place] [address] [facility] [id number] [address] [place] [address] Aug, Depressive disorder, not els ewhere classified 311 [facility] [address] [id number] [address] [place] [phone] 27 Jul, 2015 Depression, major, recurrent , moderate F33.1 [facility] [address] [id number] [address] [place] [address] 25 Jun, 2015 Major depressive disorder, r ecurrent episode, moderate 296.32 [facility] [address] [id number] [address] [place] [address] 04 Mar, 2015 Major depression, recurrent 296.30 [facility] [address] [id number] [address] [place] [phone] Jan, [facility] [address] [id number] [address] [place] [id number] Jan, [facility] [address] [facility] [id number] [address] [place] [phone] Dec, [facility] [address] [id number] [address] [place] [id number] Dec, [facility] [address] [facility] [id number] [address] [place] [phone] Nov, [facility] [address] [facility] [id number] [address] [place] [phone] Nov, [facility] [address] [facility] [id number] [address] [place] [address] Oct, [facility] [address] [id number] [address] [place] [address] Oct, [facility] [address] [id number] [address] [place] [phone] Sep, [facility] [address] [id number] [address] [place] [phone] Sep, [facility] [address] [facility] [id number] [address] [place] [phone] Sep, [facility] [address] [id number] [address] [place] [phone] Sep, [facility] [place] [facility] [address] [id number] [address] [place] [address], [place] [address] Sep, [facility] [place] [facility] [address] [id number] [address] [place] [address], [place] [address] Sep, [facility] [place] [facility] [address] [id number] [address] [place] [address], [place] [address] Aug, [facility] [place] [facility] [address] [id number] [address] [place] [address], [place] [address] Aug, [facility] [place] [facility] [address] [id number] [address] [place] [address], [place] [address] Aug, [facility] [place] [facility] [address] [id number] [address] [place] [address], [place] [address] Aug, [facility] [address] [id number] [address] [place] [address], [place] [address] Jul, [facility] [place] [facility] [address] [id number] [address] [place] [address], [place] [address] Jul, [facility] [address] [id number] [address] [place] [address], [place] [address] Jul, [facility] [place] [facility] [address] [id number] [address] [place] [address], [place] [address] Jul, [facility] [place] [facility] [address] [id number] [address] [place] [address], [place] [address] 17 Jun, 2014 [facility] [place] [facility] [address] [id number] [address] [place] [address], [place] [address] 17 Jun, 2014 [facility] [place] [facility] [address] [id number] [address] [place] [address], [place] [address] 17 Jun, 2014 [facility] [place] [facility] [address] [id number] [address] [place] [address], [place] [address] 17 Jun, 2014 [facility] [place] [facility] [address] [id number] [address] [place] [address], [place] [address] Apr, [facility] [place] [facility] [address] [id number] [facility] [place] [address] Apr, [facility] [address] [id number] [facility] [place] [address] Mar, [facility] [place] [facility] [address] [id number] [address] [place] [address], [place] [address] Mar, [facility] [address] [id number] [address] [place] [address], [place] [address] Mar, [facility] [address] [id number] [address] [place] [address], [place] [address] Mar, [facility] [address] [id number] [address] [place] [address], [place] [address] February, [facility] [address] [id number] [address] [place] [address], [place] [address] February, [facility] [address] [id number] [address] [place] [address], [place] [address] February, [facility] [address] [id number] [address] [place] [address], [place] [address] February, [facility] [address] [id number] [address] [place] [address], [place] [address] February, [facility] [address] [id number] [address] [place] [address], [place] [address] February, [facility] [place] [facility] [address] [id number] [address] [place] [address], [place] [address] February, [facility] [address] [id number] [address] [place] [address], [place] [address] Jan, [facility] [place] [facility] [address] [id number] [address] [place] [address], [place] [address] Jan, [facility] [place] [facility] [address] [id number] [address] [place] [address], [place] [address] Jan, [facility] [place] [facility] [address] [id number] [address] [place] [address], [place] [address] 18 Jan, 2014 [facility] [address] [id number] [address] [place] [address], [place] [address] 14 Jan, 2014 [facility] [address] [id number] [address] [place] [address], [place] [address] 14 Jan, 2014 [facility] [address] [id number] [address] [place] [address], [place] [address] Jan, [facility] [address] [id number] [address] [place] [address], [place] [address] Jan, [facility] [address] [id number] [address] [place] [address], [place] [address] Oct, [facility] [address] [id number] [address] [place] [address], [place] [address] Oct, [facility] [address] [id number] [address] [place] [address], [place] [address] Sep, [facility] [address] [id number] [address] [place] [address], [place] [address] Sep, [facility] [address] [id number] [address] [place] [address], [place] [address] Jun, [facility] [address] [id number] [address] [place] [address], [place] [address] Jun, [facility] [address] [id number] [address] [place] [address], [place] [address] Oct, [facility] [address] [id number] [address] [place] [address], [place] [address] Sep, [facility] [address] [id number] [address] [place] [address], [place] [address] Sep, [facility] [address] [id number] [address] [place] [address], [place] [address] 26 Jun, 2012 [facility] [place] [facility] [address] [id number] [address] [place] [address], [place] [address] Jun, [facility] [address] [id number] [address] [place] [address], [place] [id number] 24 Jun, 2012 [facility] [address] [id number] [address] [place] [address], [place] [address] 20 Jun, 2012 [facility] [address] [id number] [address] [place] [address], [place] [address] 20 Jun, 2012 [facility] [address] [id number] [address] [place] [address], [place] [address] 05 Jun, 2012 [facility] [address] [id number] [address] [place] [address], [place] [address] 12 Apr, 2012 [facility] [address] [id number] [address] [place] [address], [place] [address] 29 Mar, 2012 [facility] [address] [id number] [address] [place] [address], [place] [address] Mar, [facility] [address] [id number] [address] [place] [address], [place] [address] 16 Dec, 2011 [facility] [address] [id number] [address] [place] [address], [place] [address] Oct, [facility] [address] [id number] [address] [place] [address], [place] [id number] 15 Aug, 2011 [facility] [address] [id number] [address] [place] [address], [place] [id number] Aug, [facility] [address] [id number] [address] [place] [address], [place] [id number] Aug, [facility] [address] [id number] [address] [place] [address], [place] [id number] 07 Aug, 2011 [facility] [address] [id number] [address] [place] [address], [place] [id number] Aug, [facility] [address] [id number] [address] [place] [address], [place] [id number] 24 Jul, 2011 [facility] [address] [id number] [address] [place] [address], [place] [id number] 19 Jul, 2011 [facility] [address] [facility] [id number] [address] [place] [id number] 15 Jun, 2011 [facility] [address] [facility] [id number] [address] [place] [id number] 29 Jul, 2010 [facility] [address] [facility] [id number] [address] [place] [id number] 17 Aug, 2008 [facility] [address] [facility] [id number] [address] [place] [id number] Aug, [facility] [address] [facility] [id number] [address] [place] [id number] Oct, IMMUNIZATIONS No Known Immunizations SOCIAL HISTORY Never Assessed REASON FOR VISIT PLAN OF CARE VITAL SIGNS Height 63.75 in 2014-11-29 Weight 120.38 lbs 2014-11-29 Temperature 98.5 degrees Fahrenheit 2014-11-29 Heart Rate 88 bpm 2014-11-29 Respiratory Rate 24 2014-11-29 Blood pressure systolic 104 mmHg 2014-11-29 Blood pressure diastolic 64 mmHg 2014-11-29 MEDICATIONS Unknown Medications RESULTS No Results PROCEDURES [...]
--- OUTSIDE RECORDS SUMMARY | 2020-01-20 19:58 | XMS REPORT ---
Author Author Candace MEI Organization 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 Name Role Phone HAMIDAKAYLEYNATE Unavailable PROBLEMS Type Condition ICD9-CM Code [id number] Code Onset Dates Condition S tatus SNOMED Code Problem Bipolar 1 disorder, manic, mild F31.11 Active 26354566 Problem Normal in first trimester Z34.91 Active 12568922 Problem Normal in second trimester Z34.92 Active 77747339 Problem Missed period N92.6 Active 483327 00 Problem Adjustment disorder with depressed mood F43.21 Active 128326998 Problem Gender dysphoria F64.9 Active 934 61460 Problem Adjustment disorder with anxiety F43.22 Active 93857874 Problem Mood disorder F39 Active 775362 05 Problem Anxiety F41.9 Active 81666515 Problem Seasonal allergies J30.2 Active 4 [id number] ALLERGIES No Information ENCOUNTERS Encounter Location Date Diagnosis [facility] [address] [facility] [id number] [address] [place] [id number] May, [facility] [address] [facility] [id number] [address] [place] [address] Apr, Lower abdominal pain R10.30 [facility] [address] [facility] [id number] [address] [place] [address] Nov, Mood disorder F39 and Gender dysphoria F64.9 [facility] [address] [facility] [id number] [address] [place] [address] Jul, Missed period N92.6 [facility] [address] [facility] [id number] [address] [place] [address] Jul, Encounter for test , result unknown Z32.00 [facility] [address] [facility] [id number] [address] [place] [address] Jul, Hand pain, right M79.641 [facility] [id number] [place] [address] May, Allergic rhinitis, unspecifi ed seasonality, unspecified trigger J30.9 [facility] [address] [place] [id number] [address] [place] [address] May, [facility] [address] [address] Apr, Mood disorder F39 [place] [address] [address] Apr, Syncope, unspecified syncope type R55 and Dizziness R42 [place] [address] [place] [id number] [place] [address] Mar, Adjustment disorder with dep ressed mood F43.21 and Anxiety F41.9 [facility] [address] [address] February, Seasonal allergies J30.2 [place] [address] [address] February, [facility] [address] [address] Dec, Seasonal allergic rhinitis, unspecified trigger J30.2 [address] Sore throat J02.9 [facility] [address] [place] [id number] [address] [place] [address] Oct, Mood disorder F39 [place] [address] [place] [id number] [address] [place] [address] Oct, Mood disorder F39 [place] [address] [address] Sep, Adjustment disorder with dep ressed mood F43.21 ; Screening cholesterol level Z13.220 and Screening for diabetes mellitus Z13.1 [place] [address] [place] [address] Sep, Adjustment disorder with anx iety F43.22 and Adjustment disorder with depressed mood F43.21 [facility] [address] [facility] [id number] [address] [place] [id number] 22 Aug, 2017 Pharyngitis due to other org anism J02.8 [facility] [address] [place] [id number] [place] [address] 10 Aug, 2017 Sore throat J02.9 and Acute nasopharyngitis (common cold) J00 [facility] [address] [facility] [id number] [address] [place] [address] Mar, Acute nasopharyngitis J00 [facility] [address] [place] [id number] [place] [address] 07 Mar, 2017 Adjustment disorder with anx iety F43.22 ; Adjustment disorder with depressed mood F43.21 and Bipolar 1 disorder, manic, mild F31.11 [facility] [address] [address] Mar, [place] [address] [address] 08 Nov, 2016 39 weeks gestation of pregna ncy Z3A.39 [place] [address] [address] Nov, care in third trime ster Z34.93 [place] [address] [address] Oct, Normal in third tr imester Z34.93 [place] [address] [address] Oct, [place] [address] [place] [id number] [place] [address] Oct, Third trimester at less than 36 weeks Z33.1 [place] [address] [address] Oct, [facility] [address] [place] [id number] [place] [id number] Oct, [facility] [address] [place] [id number] [address] [place] [address] Oct, Normal in third tr imester Z34.93 [facility] [address] [place] [address] Sep, Normal in third tr imester Z34.93 [facility] [address] [place] [id number] [address] [place] [address] Sep, Third trimester at less than 36 weeks Z33.1 and Encounter for immunization Z23 [facility] [address] [place] [id number] [address] [place] [address] Aug, Adjustment disorder with anx iety F43.22 and Adjustment disorder with depressed mood F43.21 [place] [address] [place] [id number] [address] [place] [address] Aug, Abnormal glucose tolerance t est in O99.810 [facility] [address] [place] [id number] [address] [place] [address] Aug, [facility] [address] [place] [id number] [address] [place] [address] Aug, Normal in second t rimester Z34.92 [facility] [address] [place] [id number] [address] [place] [address] Aug, Acute upper respiratory infe ction, unspecified J06.9 and Other viral agents as the cause of diseases classified elsewhere B97.89 [facility] [address] [place] [id number] [address] [place] [address] Jul, Adjustment disorder with dep ressed mood F43.21 and Bipolar 1 disorder, manic, mild F31.11 [facility] [address] [place] [id number] [address] [place] [address] Jul, Bipolar 1 disorder, manic, m ild F31.11 ; Adjustment disorder with anxiety F43.22 and Adjustment disorder with depressed mood F43.21 [facility] [address] [facility] [id number] [address] [place] [address] Jul, Normal in second t [facility] Z34.92 [facility] [address] [facility] [id number] [address] [place] [address] Jul, Contact dermatitis, unspecif ied contact dermatitis type, unspecified trigger L25.9 [facility] [address] [facility] [id number] [address] [place] [address] Jul, Adjustment disorder with dep ressed mood F43.21 ; Adjustment disorder with anxiety F43.22 and Bipolar 1 disorder, manic, mild F31.11 [facility] [address] [facility] [id number] [address] [place] [address] Jul, Adjustment disorder with dep ressed mood F43.21 and Bipolar 1 disorder, manic, mild F31.11 [facility] [address] [facility] [id number] [address] [place] [address] Jun, Adjustment disorder with dep ressed mood F43.21 and Bipolar 1 disorder, manic, mild F31.11 [facility] [address] [facility] [id number] [address] [place] [address] Jun, Adjustment disorder with dep ressed mood F43.21 ; Bipolar 1 disorder, manic, mild F31.11 and Anxiety, generalized F41.1 [facility] [address] [facility] [id number] [address] [place] [address] Jun, Normal in second t [facility] Z34.92 ; 18 weeks gestation of Z3A.18 and Encounter for immunization Z23 [facility] [address] [facility] [id number] [address] [place] [address] 07 Jun, 2016 Normal in first tr imester Z34.91 [facility] [address] [facility] [id number] [address] [place] [address] May, care in second trim carlos Z34.92 [facility] [address] [id number] [address] [place] [address] May, [facility] [address] [facility] [id number] [address] [place] [address] May, [place] [address] [facility] [id number] [address] [place] [address] May, Major depressive disorder, r ecurrent, moderate F33.1 [place] [address] [id number] [address] [place] [address] 10 May, 2016 Normal in first tr imester Z34.91 ; Pap smear for cervical cancer screening Z12.4 ; Screen for STD (sexually transmitted disease) Z11.3 and 12 weeks gestation of Z3A.12 [place] [address] [facility] [id number] [address] [place] [address] May, 12 weeks gestation of pregna ncy Z3A.12 ; Unspecified abdominal pain R10.9 and Other specified related conditions, unspecified trimester O26.899 [place] [address] [facility] [id number] [address] [place] [address] Apr, [place] [address] [facility] [id number] [address] [place] [address] Apr, [place] [address] [facility] [id number] [address] [place] [address] February, [place] [address] [facility] [id number] [address] [place] [address] February, Bipolar 1 disorder, manic, m ild F31.11 and Adjustment disorder with depressed mood F43.21 [place] [address] [facility] [id number] [address] [place] [address] Dec, Major depressive disorder, s ken episode, moderate F32.1 ; Adjustment disorder with depressed mood F43.21 and Bipolar 1 disorder, manic, mild F31.11 [place] [address] [place] [id number] [address] [place] [address] Dec, Adjustment disorder with dep ressed mood F43.21 ; Major depressive disorder, single episode, moderate F32.1 and Bipolar 1 disorder, manic, mild F31.11 [place] [address] [facility] [id number] [address] [place] [address] Dec, Right hand pain M79.641 [place] [address] [place] [id number] [address] [place] [address] Dec, Major depressive disorder, s ken episode, moderate F32.1 and Adjustment disorder with depressed mood F43.21 [place] [address] [place] [id number] [place] [address] Nov, Major depressive disorder, s ken episode, moderate F32.1 [place] [address] [place] [id number] [place] [address] Nov, Adjustment disorder with dep ressed mood F43.21 ; Bipolar 1 disorder, manic, mild F31.11 and Adjustment disorder with anxiety F43.22 [place] [address] [place] [id number] [address] [place] [address] Oct, [place] [address] [place] [id number] [place] [address] Oct, Encounter for counseling reg arding contraception Z30.9 ; Initiation of OCP (BCP) Z30.011 ; Routine screening for STI (sexually transmitted infection) Z11.3 and Dysmenorrhea N94.6 [place] [address] [place] [id number] [address] [place] [address] Sep, Acute upper respiratory infe ction, unspecified J06.9 ; Other viral agents as the cause of diseases classified elsewhere B97.89 and Post-nasal drip R09.82 [place] [address] [place] [id number] [address] [place] [address] Aug, Depressive disorder, not els ewhere classified 311 [place] [address] [id number] [address] [place] [address] Jul, Depression, major, recurrent , moderate F33.1 [facility] [address] [id number] [address] [place] [address] Jun, Major depressive disorder, r ecurrent episode, moderate 296.32 [facility] [address] [id number] [address] [place] [address] Mar, Major depression, recurrent 296.30 [facility] [address] [id number] [address] [place] [address] Jan, [facility] [address] [id number] [address] [place] [address] Jan, [facility] [address] [facility] [id number] [address] [place] [address] Dec, [facility] [address] [id number] [address] [place] [address] Dec, [facility] [address] [id number] [address] [place] [address] Nov, [facility] [address] [id number] [address] [place] [address] Nov, [facility] [address] [facility] [id number] [address] [place] [address] Oct, [facility] [address] [id number] [address] [place] [address] Oct, [facility] [address] [id number] [address] [place] [address] Sep, [facility] [address] [id number] [address] [place] [address] Sep, [facility] [address] [facility] [id number] [address] [place] [address] Sep, [facility] [address] [id number] [address] [place] [address] Sep, [facility] [address] [id number] [address] [place] [address], [place] [address] Sep, [facility] [address] [id number] [address] [place] [address], [place] [address] Sep, [facility] [address] [id number] [address] [place] [address], [place] [address] Aug, [facility] [address] [id number] [address] [place] [address], [place] [address] Aug, [facility] [address] [id number] [address] [place] [address], [place] [address] Aug, [facility] [address] [id number] [address] [place] [address], [place] [address] Aug, [facility] [address] [id number] [address] [place] [address], [place] [address] Jul, [facility] [address] [id number] [address] [place] [address], [place] [address] Jul, [facility] [address] [id number] [address] [place] [address], [place] [address] Jul, [facility] [address] [id number] [address] [place] [address], [place] [address] Jul, [facility] [address] [id number] [address] [place] [address], [place] [address] 17 Jun, 2014 [facility] [address] [id number] [address] [place] [address], [place] [address] Jun, [facility] [address] [id number] [address] [place] [address], [place] [address] Jun, [facility] [address] [id number] [address] [place] [address], [place] [address] Jun, [facility] [address] [id number] [address] [place] [address], [place] [address] Apr, [facility] [address] [id number] [address] [place] [address], [place] [address] Apr, [facility] [address] [id number] [address] [place] [address], [place] [address] Mar, [facility] [address] [id number] [address] [place] [address], [place] [address] Mar, [facility] [address] [id number] [address] [place] [address], [place] [address] Mar, [facility] [address] [id number] [address] [place] [address], [place] [address] Mar, [facility] [address] [id number] [address] [place] [address], [place] [address] February, [facility] [address] [id number] [address] [place] [address], [place] [address] February, [facility] [address] [id number] [address] [place] [address], [place] [address] February, [facility] [address] [id number] [address] [place] [address], [place] [address] February, [facility] [address] [id number] [address] [place] [address], [place] [address] February, [facility] [address] [id number] [address] [place] [address], [place] [address] February, [facility] [address] [id number] [address] [place] [address], [place] [address] February, [facility] [address] [id number] [address] [place] [address], [place] [address] Jan, [facility] [address] [id number] [address] [place] [address], [place] [address] Jan, [facility] [address] [id number] [address] [place] [address], [place] [address] Jan, [facility] [address] [id number] [address] [place] [address], [place] [address] Jan, [facility] [address] [id number] [address] [place] [address], [place] [address] 14 Jan, 2014 [facility] [address] [id number] [address] [place] [address], [place] [address] 14 Jan, 2014 [facility] [address] [id number] [address] [place] [address], [place] [address] Jan, [facility] [address] [id number] [address] [place] [address], [place] [address] Jan, [facility] [address] [id number] [address] [place] [address], [place] [address] Oct, [facility] [address] [id number] [address] [place] [address], [place] [address] Oct, [facility] [address] [id number] [address] [place] [address], [place] [address] Sep, [facility] [address] [id number] [address] [place] [address], [place] [address] Sep, [facility] [address] [id number] [address] [place] [address], [place] [address] Jun, [facility] [address] [id number] [address] [place] [address], [place] [address] Jun, [facility] [address] [id number] [address] [place] [address], [place] [address] Oct, [facility] [address] [id number] [address] [place] [address], [place] [address] Sep, [facility] [address] [id number] [address] [place] [address], [place] [address] Sep, [facility] [address] [id number] [address] [place] [address], [place] [address] Jun, [facility] [address] [id number] [address] [place] [address], [place] [address] Jun, [facility] [address] [id number] [address] [place] [address], [place] [address] 24 Jun, 2012 [facility] [address] [id number] [address] [place] [address], [place] [address] 20 Jun, 2012 [facility] [address] [id number] [address] [place] [address], [place] [address] 20 Jun, 2012 [facility] [address] [id number] [address] [place] [address], [place] [address] 05 Jun, 2012 [facility] [address] [id number] [address] [place] [address], [place] [address] Apr, [facility] [address] [id number] [address] [place] [address], [place] [address] Mar, [facility] [address] [id number] [address] [place] [address], [place] [address] Mar, [facility] [address] [id number] [address] [place] [address], [place] [address] Dec, [facility] [address] [id number] [address] [place] [address], [place] [address] Oct, [facility] [address] [id number] [address] [place] [id number] Aug, [facility] [address] [id number] [address] [place] [address], [place] [address] Aug, [facility] [address] [id number] [address] [place] [address], [place] [address] Aug, [facility] [address] [id number] [address] [place] [address], [place] [address] Aug, [facility] [address] [id number] [address] [place] [address], [place] [address] Aug, [facility] [address] [id number] [address] [place] [address], [place] [address] 24 Jul, 2011 [facility] [address] [id number] [address] [place] [address], [place] [address] 19 Jul, 2011 [facility] [address] [id number] [address] [place] [id number] [address], [address] [facility] [address] [facility] [id number] [address] [place] [id number] [address], [address] [facility] [address] [facility] [id number] [address] [place] [id number] [address], [address] [facility] [address] [facility] [id number] [address] [place] [id number] Aug, [facility] [address] [facility] [id number] [address] [place] [id number] Oct, IMMUNIZATIONS No Known Immunizations SOCIAL HISTORY [...]
--- OUTSIDE RECORDS SUMMARY | 2020-01-20 19:58 | XMS REPORT ---
Author Author Candace Romeo [facility] Address [address] [place] [address] Care Team Providers Care Manager Of Organizational Development Name Role Phone TJ Romeo Unavailable PROBLEMS Type Condition ICD9-CM Code [id number] Code Onset Dates Condition S tatus SNOMED Code Problem Bipolar 1 disorder, manic, mild F31.11 Active 82821594 Problem Normal in first trimester Z34.91 Active 08642800 Problem Normal in second trimester Z34.92 Active 03574830 Problem Missed period N92.6 Active 313259 00 Problem Adjustment disorder with depressed mood F43.21 Active 622230484 Problem Gender dysphoria F64.9 Active 934 80863 Problem Adjustment disorder with anxiety F43.22 Active 71761597 Problem Mood disorder F39 Active 990172 05 Problem Anxiety F41.9 Active 09431680 Problem Seasonal allergies J30.2 Active 4 29243230 ALLERGIES No Information ENCOUNTERS Encounter Location Date Diagnosis [facility] [address] [facility] [id number] [address] [place] [address] Apr, Lower abdominal pain R10.30 [facility] [address] [facility] [id number] [address] [place] [address] Nov, Mood disorder F39 and Gender dysphoria F64.9 [facility] [address] [facility] [id number] [address] [place] [address] Jul, Missed period N92.6 [facility] [address] [facility] [id number] [address] [place] [address] Jul, Encounter for test , result unknown Z32.00 [facility] [address] [facility] [id number] [address] [place] [address] Jul, Hand pain, right M79.641 [facility] [address] [place] [id number] [address] [place] [address] May, Allergic rhinitis, unspecifi ed seasonality, unspecified trigger J30.9 [facility] [address] [place] [id number] [address] [place] [address] May, [facility] [address] [place] [id number] [place] [address] Apr, Mood disorder F39 [facility] [address] [address] Apr, Syncope, unspecified syncope type R55 and Dizziness R42 [place] [address] [address] Mar, Adjustment disorder with dep ressed mood F43.21 and Anxiety F41.9 [facility] [address] [address] February, Seasonal allergies J30.2 [facility] [address] [place] [id number] [place] [address] February, [facility] [address] [address] Dec, Seasonal allergic rhinitis, unspecified trigger J30.2 and Sore throat J02.9 [place] [address] [address] Oct, Mood disorder F39 [facility] [address] [address] Oct, Mood disorder F39 [place] [address] [address] Sep, Adjustment disorder with dep ressed mood F43.21 ; Screening cholesterol level Z13.220 and Screening for diabetes mellitus Z13.1 [place] [address] [place] [id number] [address] [place] [address] Sep, Adjustment disorder with anx iety F43.22 and Adjustment disorder with depressed mood F43.21 [facility] [address] [facility] [id number] [address] [place] [address] Aug, Pharyngitis due to other org anism J02.8 [facility] [address] [place] [id number] [address] [place] [address] 10 Aug, 2017 Sore throat J02.9 and Acute nasopharyngitis (common cold) J00 [facility] [address] [facility] [id number] [address] [place] [address] 19 Mar, 2017 Acute nasopharyngitis J00 [place] [address] [address] 07 Mar, 2017 Adjustment disorder with anx iety F43.22 ; Adjustment disorder with depressed mood F43.21 and Bipolar 1 disorder, manic, mild F31.11 [place] [address] [address] Mar, [place] [address] [address] Nov, 39 weeks gestation of pregna ncy Z3A.39 [place] [address] [address] Nov, care in [facility] Z34.93 [place] [address] [place] [id number] [address] [place] [address] Oct, Normal in third imester Z34.93 [place] [address] [place] [id number] [address] [place] [address] Oct, [place] [address] [address] Oct, Third trimester at less than 36 weeks Z33.1 [place] [address] [place] [id number] [address] [place] [address] Oct, [facility] [address] [place] [id number] Oct, [facility] [address] [facility] [id number] [address] [place] [address] Oct, Normal in third tr imester Z34.93 [facility] [address] [facility] [id number] [address] [place] [address] Sep, Normal in third tr imester Z34.93 [facility] [address] [facility] [id number] [address] [place] [address] Sep, Third trimester at less than 36 weeks Z33.1 and Encounter for immunization Z23 [facility] [address] [place] [id number] [address] [place] [address] Aug, Adjustment disorder with anx iety F43.22 and Adjustment disorder with depressed mood F43.21 [place] [address] [place] [id number] [address] [place] [address] Aug, Abnormal glucose tolerance t est in O99.810 [facility] [address] [place] [id number] [address] [place] [address] Aug, [facility] [address] [place] [id number] [address] [place] [address] Aug, Normal in second t rimester Z34.92 [facility] [address] [place] [id number] [address] [place] [address] Aug, Acute upper respiratory infe ction, unspecified J06.9 and Other viral agents as the cause of diseases classified elsewhere B97.89 [facility] [address] [facility] [id number] [address] [place] [address] Jul, Adjustment disorder with dep ressed mood F43.21 and Bipolar 1 disorder, manic, mild F31.11 [facility] [address] [facility] [id number] [address] [place] [address] Jul, Bipolar 1 disorder, manic, m ild F31.11 ; Adjustment disorder with anxiety F43.22 and Adjustment disorder with depressed mood F43.21 [facility] [id number] [place] [address] Jul, Normal in second t rimester Z34.92 [facility] [address] [facility] [id number] [address] [place] [address] Jul, Contact dermatitis, unspecif ied contact dermatitis type, unspecified trigger L25.9 [facility] [address] [place] [id number] [address] [place] [address] Jul, Adjustment disorder with dep ressed mood F43.21 ; Adjustment disorder with anxiety F43.22 and Bipolar 1 disorder, manic, mild F31.11 [facility] [address] [address] 04 Jul, 2016 Adjustment disorder with dep ressed mood F43.21 and Bipolar 1 disorder, manic, mild F31.11 [facility] [address] [place] [id number] [address] [place] [address] Jun, Adjustment disorder with dep ressed mood F43.21 and Bipolar 1 disorder, manic, mild F31.11 [facility] [address] [place] [id number] [address] [place] [address] Jun, Adjustment disorder with dep ressed mood F43.21 ; Bipolar 1 disorder, manic, mild F31.11 and Anxiety, generalized F41.1 [facility] [address] [place] [id number] [address] [place] [address] Jun, Normal in second t rimester Z34.92 ; 18 weeks gestation of Z3A.18 and Encounter for immunization Z23 [facility] [address] [place] [id number] [address] [place] [address] 07 Jun, 2016 Normal in first tr imester Z34.91 [facility] [address] [place] [id number] [address] [place] [address] May, care in second trim carlos Z34.92 [facility] [address] [facility] [id number] [address] [place] [address] May, [place] [address] [facility] [id number] [address] [place] [address] May, [place] [address] [facility] [id number] [address] [place] [address] May, Major depressive disorder, r ecurrent, moderate F33.1 [place] [address] [facility] [id number] [address] [place] [address] May, Normal in first tr imester Z34.91 ; Pap smear for cervical cancer screening Z12.4 ; Screen for STD (sexually transmitted disease) Z11.3 and 12 weeks gestation of Z3A.12 [place] [address] [facility] [id number] [address] [place] [address] 08 May, 2016 12 weeks gestation of pregna ncy Z3A.12 ; Unspecified abdominal pain R10.9 and Other specified related conditions, unspecified trimester O26.899 [place] [address] [facility] [id number] [address] [place] [address] Apr, [place] [address] [facility] [id number] [address] [place] [address] Apr, [place] [address] [facility] [id number] [address] [place] [address] February, [place] [address] [facility] [id number] [address] [place] [address] February, Bipolar 1 disorder, manic, m ild F31.11 and Adjustment disorder with depressed mood F43.21 [place] [address] [facility] [id number] [address] [place] [address] Dec, Major depressive disorder, s ken episode, moderate F32.1 ; Adjustment disorder with depressed mood F43.21 and Bipolar 1 disorder, manic, mild F31.11 [place] [address] [facility] [id number] [address] [place] [address] Dec, Adjustment disorder with dep ressed mood F43.21 ; Major depressive disorder, single episode, moderate F32.1 and Bipolar 1 disorder, manic, mild F31.11 [place] [address] [facility] [id number] [address] [place] [address] Dec, Right hand pain M79.641 [place] [address] [place] [id number] [address] [place] [address] Dec, Major depressive disorder, s ken episode, moderate F32.1 and Adjustment disorder with depressed mood F43.21 [place] [address] [facility] [id number] [address] [place] [address] Nov, Major depressive disorder, s ken episode, moderate F32.1 [place] [address] [facility] [id number] [address] [place] [address] Nov, Adjustment disorder with dep ressed mood F43.21 ; Bipolar 1 disorder, manic, mild F31.11 and Adjustment disorder with anxiety F43.22 [place] [address] [place] [id number] [address] [place] [address] Oct, [place] [address] [address] Oct, Encounter for counseling reg arding contraception Z30.9 ; Initiation of OCP (BCP) Z30.011 ; Routine screening for STI (sexually transmitted infection) Z11.3 and Dysmenorrhea N94.6 [place] [address] [place] [id number] [address] [place] [address] Sep, Acute upper respiratory infe ction, unspecified J06.9 ; Other viral agents as the cause of diseases classified elsewhere B97.89 and Post-nasal drip R09.82 [place] [address] [place] [id number] [address] [place] [address] Aug, Depressive disorder, not els ewhere classified 311 [place] [address] [place] [id number] [address] [place] [address] Jul, Depression, major, recurrent , moderate F33.1 [facility] [address] [id number] [address] [place] [address] 25 Jun, 2015 Major depressive disorder, r ecurrent episode, moderate 296.32 [facility] [address] [id number] [address] [place] [address] 04 Mar, 2015 Major depression, recurrent 296.30 [facility] [address] [id number] [address] [place] [address] Jan, [facility] [address] [id number] [address] [place] [address] Jan, [facility] [address] [id number] [address] [place] [address] Dec, [facility] [address] [id number] [address] [place] [address] Dec, [facility] [address] [id number] [address] [place] [address] Nov, [facility] [address] [id number] [address] [place] [address] Nov, [facility] [address] [id number] [address] [place] [address] Oct, [facility] [address] [id number] [address] [place] [address] Oct, [facility] [address] [id number] [address] [place] [address] Sep, [facility] [address] [id number] [address] [place] [address] Sep, [facility] [address] [id number] [address] [place] [address] Sep, [facility] [address] [id number] [address] [place] [address] Sep, [facility] [address] [id number] [address] [place] [address] Sep, [facility] [address] [id number] [address] [place] [address], [place] [address] Sep, [facility] [address] [id number] [address] [place] [address], [place] [address] Aug, [facility] [address] [id number] [address] [place] [address], [place] [address] Aug, [facility] [address] [id number] [address] [place] [address], [place] [address] Aug, [facility] [address] [id number] [address] [place] [address], [place] [address] Aug, [facility] [address] [id number] [address] [place] [address], [place] [address] Jul, [facility] [address] [id number] [address] [place] [address], [place] [address] Jul, [facility] [address] [id number] [address] [place] [address], [place] [address] Jul, [facility] [address] [id number] [address] [place] [address], [place] [address] Jul, [facility] [address] [id number] [address] [place] [address], [place] [address] Jun, [facility] [address] [id number] [address] [place] [address], [place] [address] 17 Jun, 2014 [facility] [address] [id number] [address] [place] [address], [place] [address] 17 Jun, 2014 [facility] [address] [id number] [address] [place] [address], [place] [address] Jun, [facility] [address] [id number] [address] [place] [address], [place] [address] Apr, [facility] [address] [id number] [address] [place] [address], [place] [address] Apr, [facility] [address] [id number] [facility] [place] [address] Mar, [facility] [address] [id number] [facility] [place] [address] Mar, [facility] [address] [id number] [facility] [place] [address] Mar, [facility] [address] [id number] [address] [place] [address], [place] [address] Mar, [facility] [address] [id number] [address] [place] [address], [place] [address] February, [facility] [address] [id number] [address] [place] [address], [place] [address] February, [facility] [address] [id number] [address] [place] [address], [place] [address] February, [facility] [address] [id number] [address] [place] [address], [place] [address] February, [facility] [address] [id number] [address] [place] [address], [place] [address] February, [facility] [address] [id number] [address] [place] [address], [place] [address] February, [facility] [address] [id number] [address] [place] [address], [place] [address] February, [facility] [address] [id number] [address] [place] [address], [place] [address] Jan, [facility] [address] [id number] [address] [place] [address], [place] [address] Jan, [facility] [address] [id number] [address] [place] [address], [place] [address] Jan, [facility] [address] [id number] [address] [place] [address], [place] [address] Jan, [facility] [address] [id number] [address] [place] [address], [place] [address] 14 Jan, 2014 [facility] [address] [id number] [address] [place] [address], [place] [address] 14 Jan, 2014 [facility] [address] [id number] [address] [place] [address], [place] [address] 11 Jan, 2014 [facility] [address] [id number] [address] [place] [address], [place] [address] 11 Jan, 2014 [facility] [address] [id number] [address] [place] [address], [place] [address] 14 Oct, 2013 [facility] [address] [id number] [address] [place] [address], [place] [address] 14 Oct, 2013 [facility] [address] [id number] [address] [place] [address], [place] [address] Sep, [facility] [address] [id number] [address] [place] [address], [place] [address] Sep, [facility] [address] [id number] [address] [place] [address], [place] [address] 11 Jun, 2013 [facility] [address] [id number] [address] [place] [address], [place] [address] 04 Jun, 2013 [facility] [address] [id number] [address] [place] [address], [place] [address] 27 Oct, 2012 [facility] [address] [id number] [address] [place] [address], [place] [address] 08 Sep, 2012 [facility] [address] [id number] [address] [place] [address], [place] [address] 08 Sep, 2012 [facility] [address] [id number] [address] [place] [address], [place] [address] 26 Jun, 2012 [facility] [address] [id number] [address] [place] [address], [place] [address] 25 Jun, 2012 [facility] [address] [id number] [address] [place] [address], [place] [address] 24 Jun, 2012 [facility] [address] [id number] [address] [place] [address], [place] [address] 20 Jun, 2012 [facility] [address] [id number] [address] [place] [address], [place] [address] 20 Jun, 2012 [facility] [address] [id number] [address] [place] [address], [place] [address] 05 Jun, 2012 [facility] [address] [id number] [address] [place] [address], [place] [address] Apr, [facility] [address] [id number] [address] [place] [address], [place] [address] Mar, [facility] [address] [id number] [address] [place] [address], [place] [address] Mar, [facility] [address] [id number] [address] [place] [address], [place] [address] Dec, [facility] [address] [id number] [address] [place] [address], [place] [address] Oct, [facility] [address] [id number] [address] [place] [address], [place] [address] 15 Aug, 2011 [facility] [address] [id number] [address] [place] [address], [place] [address] Aug, [facility] [address] [id number] [address] [place] [address], [place] [address] Aug, [facility] [address] [id number] [address] [place] [address], [place] [address] Aug, [facility] [address] [id number] [address] [place] [address], [place] [address] Aug, [facility] [address] [id number] [address] [place] [address], [place] [address] 24 Jul, 2011 [facility] [address] [id number] [address] [place] [address], [place] [address] 19 Jul, 2011 [facility] [address] [id number] [address] [place] [address], [place] [id number] 15 Jun, 2011 [facility] [address] [facility] [id number] [address] [place] [id number] Jul, [facility] [address] [facility] [id number] [address] [place] [id number] 17 Aug, 2008 [facility] [address] [facility] [id number] [address] [place] [id number] Aug, [facility] [address] [facility] [id number] [address] [place] [id number] Oct, IMMUNIZATIONS No Known Immunizations SOCIAL HISTORY [...]
--- OUTSIDE RECORDS SUMMARY | 2020-01-20 19:58 | XMS REPORT ---
Author Author Candace Tirado Doctor Organization [facility] Address Unknown Phone Unavailable Care Team Providers Care Pattern Maker Programer Name Role Phone Migration, Doctor Unavailable Unavailable PROBLEMS Type Condition ICD9-CM Code [id number] Code Onset Dates Condition S tatus SNOMED Code Problem Bipolar 1 disorder, manic, mild F31.11 Active 88748215 Problem Normal in first trimester Z34.91 Active 59447344 Problem Normal in second trimester Z34.92 Active 44181764 Problem Missed period N92.6 Active 940431 00 Problem Adjustment disorder with depressed mood F43.21 Active 213999314 Problem Gender dysphoria F64.9 Active 934 86540 Problem Adjustment disorder with anxiety F43.22 Active 84970972 Problem Mood disorder F39 Active 691632 05 Problem Anxiety F41.9 Active 23651908 Problem Seasonal allergies J30.2 Active 4 [id number] ALLERGIES No Information ENCOUNTERS Encounter Location Date Diagnosis [facility], [place] [address] [facility] [id number] [address] [place] [address] 12 Nov, 2018 Mood disorder F39 and Gender dysphoria F64.9 [facility], [place] [address] [facility] [id number] [address] [place] [address] Jul, Missed period N92.6 [facility] [place] [address] [facility] [id number] [address] [place] [address] Jul, Encounter for test , result unknown Z32.00 [facility] [place] [address] [facility] [id number] [address] [place] [address] Jul, Hand pain, right M79.641 [facility] [address] [facility] [id number] [address] [place] [address] May, Allergic rhinitis, unspecifi ed seasonality, unspecified trigger J30.9 [facility], [place] [address] [facility] [id number] [address] [place] [address] May, [facility] [place] [address] [facility] [id number] [address] [place] [address] Apr, Mood disorder F39 [place] [id number] [facility] [id number] [address] [place] [address] Apr, Syncope, unspecified syncope type R55 and Dizziness R42 [place] [address] [place] [id number] [address] [place] [address] Mar, Adjustment disorder with dep ressed mood F43.21 and Anxiety F41.9 [facility] [place] [address] [facility] [id number] [place] [address] February, Seasonal allergies J30.2 [place] [address] [place] [id number] [address] [place] [address] February, [facility] [address] [place] [id number] [place] [address] Dec, Seasonal allergic rhinitis, unspecified trigger J30.2 and Sore throat J02.9 [place] [address] [place] [id number] [address] [place] [address] Oct, Mood disorder F39 [place] [id number] [place] [id number] [address] [place] [address] Oct, Mood disorder F39 [place] [address] [place] [id number] [address] [place] [address] Sep, Adjustment disorder with dep ressed mood F43.21 ; Screening cholesterol level Z13.220 and Screening for diabetes mellitus Z13.1 [place] [address] [facility] [id number] [address] [place] [address] Sep, Adjustment disorder with anx iety F43.22 and Adjustment disorder with depressed mood F43.21 [facility] [address] [facility] [id number] [address] [place] [address] Aug, Pharyngitis due to other org anism J02.8 [facility] [address] [facility] [id number] [address] [place] [address] 10 Aug, 2017 Sore throat J02.9 and Acute nasopharyngitis (common cold) J00 [facility] [address] [facility] [id number] [address] [place] [address] 19 Mar, 2017 Acute nasopharyngitis J00 [facility] [place] [address] [facility] [id number] [address] [place] [address] 07 Mar, 2017 Adjustment disorder with anx iety F43.22 ; Adjustment disorder with depressed mood F43.21 and Bipolar 1 disorder, manic, mild F31.11 [facility] [place] [address] [facility] [id number] [address] [place] [address] Mar, [facility] [place] [address] [facility] [id number] [address] [place] [address] 08 Nov, 2016 39 weeks gestation of pregna ncy Z3A.39 [facility], [place] [address] [place] [id number] [address] [place] [address] Nov, [facility] Z34.93 [facility] [place] [address] [place] [id number] [address] [place] [address] Oct, Normal in third tr imester Z34.93 [facility], [place] [address] [place] [id number] [address] [place] [address] Oct, [facility] [place] [address] [facility] [id number] [address] [place] [address] Oct, Third trimester at less than 36 weeks Z33.1 [facility] [place] [address] [facility] [id number] [address] [place] [address] Oct, [facility] [address] [place] [id number] [place] [id number] Oct, [facility] [place] [address] [facility] [id number] [address] [place] [address] Oct, Normal in third tr imester Z34.93 [facility] [place] [address] [facility] [id number] [address] [place] [address] Sep, Normal in third tr imester Z34.93 [facility] [place] [address] [facility] [id number] [address] [place] [address] Sep, Third trimester at less than 36 weeks Z33.1 and Encounter for immunization Z23 [facility] [place] [address] [facility] [id number] [address] [place] [address] Aug, Adjustment disorder with anx iety F43.22 and Adjustment disorder with depressed mood F43.21 [place] [address] [facility] [id number] [address] [place] [address] Aug, Abnormal glucose tolerance t est in O99.810 [facility] [place] [address] [facility] [id number] [address] [place] [address] Aug, [facility] [place] [address] [facility] [id number] [address] [place] [address] Aug, [facility].92 [facility] [address] [facility] [id number] [address] [place] [address] Aug, Acute upper respiratory infe ction, unspecified J06.9 and Other viral agents as the cause of diseases classified elsewhere B97.89 [facility] [place] [address] [facility] [id number] [address] [place] [address] Jul, Adjustment disorder with dep ressed mood F43.21 and Bipolar 1 disorder, manic, mild F31.11 [facility] [place] [address] [facility] [id number] [address] [place] [address] Jul, Bipolar 1 disorder, manic, m ild F31.11 ; Adjustment disorder with anxiety F43.22 and Adjustment disorder with depressed mood F43.21 [facility] [place] [address] [facility] [id number] [address] [place] [address] Jul, Normal in second t rimester Z34.92 [facility] [id number] [place] [address] 11 Jul, 2016 Contact dermatitis, unspecif ied contact dermatitis type, unspecified trigger L25.9 [facility], [place] [id number] [place] [address] 11 Jul, 2016 Adjustment disorder with dep ressed mood F43.21 ; Adjustment disorder with anxiety F43.22 and Bipolar 1 disorder, manic, mild F31.11 [place] [address] [address] 04 Jul, 2016 Adjustment disorder with dep ressed mood F43.21 and Bipolar 1 disorder, manic, mild F31.11 [place] [address] [address] 26 Jun, 2016 Adjustment disorder with dep ressed mood F43.21 and Bipolar 1 disorder, manic, mild F31.11 [place] [address] [address] Jun, Adjustment disorder with dep ressed mood F43.21 ; Bipolar 1 disorder, manic, mild F31.11 and Anxiety, generalized F41.1 [place] [address] [address] Jun, Normal in second t rimester Z34.92 ; 18 weeks gestation of Z3A.18 and Encounter for immunization Z23 [place] [address] [place] [id number] [address] [place] [address] 07 Jun, 2016 Normal in first tr imester Z34.91 [place] [address] [place] [address] May, care in second trim carlos Z34.92 [place] [address] [place] [id number] [address] [place] [address] May, [place] [address] [place] [id number] [address] [place] [address] May, [place] [address] [place] [id number] [address] [place] [address] 15 May, 2016 Major depressive disorder, r ecurrent, moderate F33.1 [place] [address] [place] [id number] [address] [place] [address] 10 May, 2016 Normal in first tr imester Z34.91 ; Pap smear for cervical cancer screening Z12.4 ; Screen for STD (sexually transmitted disease) Z11.3 and 12 weeks gestation of Z3A.12 [place] [address] [place] [id number] [address] [place] [address] 08 May, 2016 12 weeks gestation of pregna ncy Z3A.12 ; Unspecified abdominal pain R10.9 and Other specified related conditions, unspecified trimester O26.899 [place] [address] [place] [id number] [address] [place] [address] Apr, [place] [address] [place] [id number] [address] [place] [address] Apr, [place] [address] [place] [id number] [address] [place] [address] February, [place] [address] [address] February, Bipolar 1 disorder, manic, m ild F31.11 and Adjustment disorder with depressed mood F43.21 [place] [address] [place] [id number] [address] [place] [address] Dec, Major depressive disorder, s ken episode, moderate F32.1 ; Adjustment disorder with depressed mood F43.21 and Bipolar 1 disorder, manic, mild F31.11 [place] [address] [place] [id number] [address] [place] [address] Dec, Adjustment disorder with dep ressed mood F43.21 ; Major depressive disorder, single episode, moderate F32.1 and Bipolar 1 disorder, manic, mild F31.11 [place] [address] [place] [id number] [address] [place] [address] Dec, Right hand pain M79.641 [place] [address] [place] [address] Dec, Major depressive disorder, s ken episode, moderate F32.1 and Adjustment disorder with depressed mood F43.21 [place] [address] [place] [id number] [address] [place] [address] Nov, Major depressive disorder, s ken episode, moderate F32.1 [place] [address] [place] [id number] [address] [place] [address] Nov, Adjustment disorder with dep ressed mood F43.21 ; Bipolar 1 disorder, manic, mild F31.11 and Adjustment disorder with anxiety F43.22 [place] [address] [address] Oct, [place] [address] [address] Oct, Encounter for counseling reg arding contraception Z30.9 ; Initiation of OCP (BCP) Z30.011 ; Routine screening for STI (sexually transmitted infection) Z11.3 and Dysmenorrhea N94.6 [place] [address] [place] [id number] [address] [place] [address] Sep, Acute upper respiratory infe ction, unspecified J06.9 ; Other viral agents as the cause of diseases classified elsewhere B97.89 and Post-nasal drip R09.82 [place] [address] [place] [id number] [address] [place] [address] Aug, Depressive disorder, not els ewhere classified 311 [place] [address] [address] Jul, Depression, major, recurrent , moderate F33.1 [place] [address] [place] [id number] [address] [place] [address] Jun, Major depressive disorder, r ecurrent episode, moderate 296.32 [facility] [address] [id number] [address] [place] [address] Mar, Major depression, recurrent 296.30 [facility] [address] [id number] [address] [place] [address], [place] [address] 14 Jan, 2015 [facility] [address] [id number] [address] [place] [address] Jan, [facility] [address] [id number] [address] [place] [address] Dec, [facility] [address] [id number] [address] [place] [address], [place] [address] Dec, [facility] [address] [id number] [address] [place] [address], [place] [address] Nov, [facility] [address] [id number] [address] [place] [address] Nov, [facility] [address] [id number] [address] [place] [address] Oct, [facility] [address] [id number] [address] [place] [address] Oct, [facility] [address] [id number] [address] [place] [address] Sep, [facility] [address] [id number] [address] [place] [address] Sep, [facility] [address] [id number] [address] [place] [address] Sep, [facility] [address] [id number] [address] [place] [address] Sep, [facility] [address] [id number] [address] [place] [address] Sep, [facility] [address] [id number] [address] [place] [address] Sep, [facility] [address] [id number] [address] [place] [address] 10 Aug, 2014 [facility] [address] [id number] [address] [place] [address], [place] [address] 10 Aug, 2014 [facility] [address] [id number] [address] [place] [address], [place] [address] Aug, [facility] [address] [id number] [address] [place] [address], [place] [address] Aug, [facility] [address] [id number] [address] [place] [address], [place] [address] 17 Jul, 2014 [facility] [address] [id number] [address] [place] [address], [place] [address] 17 Jul, 2014 [facility] [address] [id number] [address] [place] [address], [place] [address] 16 Jul, 2014 [facility] [address] [id number] [address] [place] [address], [place] [address] 16 Jul, 2014 [facility] [address] [id number] [address] [place] [address], [place] [address] 17 Jun, 2014 [facility] [address] [id number] [address] [place] [address], [place] [address] 17 Jun, 2014 [facility] [address] [id number] [address] [place] [address], [place] [address] 17 Jun, 2014 [facility] [address] [id number] [address] [place] [address], [place] [address] 17 Jun, 2014 [facility] [address] [id number] [address] [place] [address], [place] [address] Apr, [facility] [address] [id number] [address] [place] [address], [place] [address] Apr, [facility] [address] [id number] [address] [place] [address], [place] [address] Mar, [facility] [address] [id number] [address] [place] [address], [place] [address] Mar, [facility] [address] [id number] [facility] [place] [address] Mar, [facility] [address] [id number] [address] [place] [address], [place] [address] Mar, [facility] [address] [id number] [address] [place] [address], [place] [address] February, [facility] [address] [id number] [address] [place] [address], [place] [address] February, [facility] [address] [id number] [address] [place] [address], [place] [address] February, [facility] [address] [id number] [address] [place] [address], [place] [address] February, [facility] [address] [id number] [address] [place] [address], [place] [address] February, [facility] [address] [id number] [address] [place] [address], [place] [address] February, [facility] [address] [id number] [address] [place] [address], [place] [address] February, [facility] [address] [id number] [address] [place] [address], [place] [address] Jan, [facility] [address] [id number] [address] [place] [address], [place] [address] 24 Jan, 2014 [facility] [address] [id number] [address] [place] [address], [place] [address] 18 Jan, 2014 [facility] [address] [id number] [address] [place] [address], [place] [address] 18 Jan, 2014 [facility] [address] [id number] [address] [place] [address], [place] [address] Jan, [facility] [address] [id number] [address] [place] [address], [place] [address] Jan, [facility] [address] [id number] [address] [place] [address], [place] [address] Jan, [facility] [address] [id number] [address] [place] [address], [place] [address] Jan, [facility] [address] [id number] [address] [place] [address], [place] [address] 14 Oct, 2013 [facility] [address] [id number] [address] [place] [address], [place] [address] 14 Oct, 2013 [facility] [address] [id number] [address] [place] [address], [place] [address] Sep, [facility] [address] [id number] [address] [place] [address], [place] [address] 31 Sep, 2013 [facility] [address] [id number] [address] [place] [address], [place] [address] 11 Jun, 2013 [facility] [address] [id number] [address] [place] [address], [place] [address] 04 Jun, 2013 [facility] [address] [id number] [address] [place] [address], [place] [address] 27 Oct, 2012 [facility] [address] [id number] [address] [place] [address], [place] [address] Sep, [facility] [address] [id number] [address] [place] [address], [place] [address] 08 Sep, 2012 [facility] [address] [id number] [address] [place] [address], [place] [address] 26 Jun, 2012 [facility] [address] [id number] [address] [place] [address], [place] [address] 25 Jun, 2012 [facility] [address] [id number] [address] [place] [address], [place] [address] 24 Jun, 2012 [facility] [address] [id number] [address] [place] [address], [place] [address] 20 Jun, 2012 [facility] [address] [id number] [address] [place] [address], [place] [address] 20 Jun, 2012 [facility] [address] [id number] [address] [place] [address], [place] [address] 05 Jun, 2012 [facility] [address] [id number] [address] [place] [address], [place] [address] Apr, [facility] [address] [id number] [address] [place] [address], [place] [address] Mar, [facility] [address] [id number] [address] [place] [address], [place] [address] Mar, [facility] [address] [id number] [address] [place] [address], [place] [address] Dec, [facility] [address] [id number] [address] [place] [address], [place] [address] Oct, [facility] [address] [id number] [address] [place] [address], [place] [address] Aug, [facility] [address] [id number] [address] [place] [address], [place] [address] Aug, [facility] [address] [id number] [address] [place] [address], [place] [address] Aug, [facility] [address] [id number] [address] [place] [address], [place] [address] Aug, [facility] [address] [id number] [address] [place] [address], [place] [address] Aug, [facility] [address] [id number] [address] [place] [address], [place] [address] 24 Jul, 2011 [facility] [address] [id number] [address] [place] [address], [place] [address] Jul, [facility] [address] [id number] [address] [place] [address], [place] [address] 15 Jun, 2011 [facility] [address] [id number] [address] [place] [address], [place] [address] 29 Jul, 2010 [facility] [address] [id number] [address] [place] [address], [place] [address] 17 Aug, 2008 [facility] [place] [address] [facility] [id number] [address] [place] [address] Aug, [facility] [place] [address] [facility] [id number] [address] [place] [address] Oct, IMMUNIZATIONS No Known Immunizations SOCIAL HISTORY Never Assessed REASON FOR VISIT EMR-[facility] PLAN OF CARE VITAL SIGNS MEDICATIONS No [...]
--- OUTSIDE RECORDS SUMMARY | 2020-01-20 19:58 | XMS REPORT ---
Author Author Candace Tirado Doctor Organization [facility] Address Unknown Phone Unavailable Care Team Providers Care Egg Sorter Name Role Phone Migration, Doctor Unavailable Unavailable PROBLEMS Type Condition ICD9-CM Code DLT29-GM Code Onset Dates Condition S tatus SNOMED Code Problem Bipolar 1 disorder, manic, mild F31.11 Active 13798458 Problem Normal in first trimester Z34.91 Active 60644969 Problem Normal in second trimester Z34.92 Active 52080558 Problem Missed period N92.6 Active 640959 00 Problem Adjustment disorder with depressed mood F43.21 Active 972587610 Problem Gender dysphoria F64.9 Active 934 95872 Problem Adjustment disorder with anxiety F43.22 Active 49372161 Problem Mood disorder F39 Active 000620 05 Problem Anxiety F41.9 Active 01929006 Problem Seasonal allergies J30.2 Active 4 [id number] ALLERGIES No Information ENCOUNTERS Encounter Location Date Diagnosis [facility] [address] [facility] [id number] [address] [place] [phone] 12 Nov, 2018 Mood disorder F39 and Gender dysphoria F64.9 [facility] [address] [facility] [id number] [address] [place] [address] Jul, Missed period N92.6 [facility] [address] [facility] [id number] [address] [place] [address] Jul, Encounter for test , result unknown Z32.00 [facility] [address] [facility] [id number] [address] [place] [address] Jul, Hand pain, right M79.641 [facility] [address] [facility] [id number] [address] [place] [address] May, Allergic rhinitis, unspecifi ed seasonality, unspecified trigger J30.9 [facility] [address] [facility] [id number] [address] [place] [address] May, [facility] [address] [facility] [id number] [address] [place] [address] Apr, Mood disorder F39 [place] [id number] [facility] [id number] [address] [place] [address] Apr, Syncope, unspecified syncope type R55 and Dizziness R42 [place] [address] [place] [id number] [address] [place] [address] Mar, Adjustment disorder with dep ressed mood F43.21 and Anxiety F41.9 [facility] [place] [id number] [facility] [id number] [place] [address] February, Seasonal allergies J30.2 [place] [address] [place] [id number] [address] [place] [address] February, [facility] [address] [place] [id number] [place] [address] Dec, Seasonal allergic rhinitis, unspecified trigger J30.2 and Sore throat J02.9 [place] [address] [place] [id number] [address] [place] [address] Oct, Mood disorder F39 [place] [address] [place] [id number] [address] [place] [address] Oct, Mood disorder F39 [place] [address] [place] [id number] [address] [place] [address] Sep, Adjustment disorder with dep ressed mood F43.21 ; Screening cholesterol level Z13.220 and Screening for diabetes mellitus Z13.1 [place] [address] [facility] [id number] [address] [place] [address] Sep, Adjustment disorder with anx iety F43.22 and Adjustment disorder with depressed mood F43.21 [facility] [address] [facility] [id number] [address] [place] [address] Aug, Pharyngitis due to other org anism J02.8 [facility] [address] [facility] [id number] [address] [place] [address] 10 Aug, 2017 Sore throat J02.9 and Acute nasopharyngitis (common cold) J00 [facility] [address] [facility] [id number] [address] [place] [address] 19 Mar, 2017 Acute nasopharyngitis J00 [facility] [address] [facility] [id number] [address] [place] [address] 07 Mar, 2017 Adjustment disorder with anx iety F43.22 ; Adjustment disorder with depressed mood F43.21 and Bipolar 1 disorder, manic, mild F31.11 [facility] [address] [facility] [id number] [address] [place] [address] Mar, [facility] [address] [facility] [id number] [address] [place] [address] 08 Nov, 2016 39 weeks gestation of pregna ncy Z3A.39 [facility] [address] [place] [id number] [address] [place] [address] Nov, care in third trime ster Z34.93 [facility] [address] [place] [id number] [address] [place] [address] Oct, Normal in third tr imester Z34.93 [facility] [address] [place] [id number] [address] [place] [address] Oct, [facility] [address] [facility] [id number] [address] [place] [address] Oct, Third trimester at less than 36 weeks Z33.1 [facility] [address] [facility] [id number] [address] [place] [address] Oct, [facility] [address] [place] [id number] [place] [id number] Oct, [facility] [address] [facility] [id number] [address] [place] [address] Oct, Normal in third tr imester Z34.93 [facility] [address] [facility] [id number] [address] [place] [address] Sep, Normal in third tr imester Z34.93 [facility] [address] [facility] [id number] [address] [place] [address] Sep, Third trimester at less than 36 weeks Z33.1 and Encounter for immunization Z23 [facility] [address] [facility] [id number] [address] [place] [address] Aug, Adjustment disorder with anx iety F43.22 and Adjustment disorder with depressed mood F43.21 [place] [address] [facility] [id number] [address] [place] [address] Aug, Abnormal glucose tolerance t est in O99.810 [facility] [address] [facility] [id number] [address] [place] [address] Aug, [facility] [address] [facility] [id number] [address] [place] [address] Aug, Normal in second t on license of [facility] Z34.92 [facility] [address] [facility] [id number] [address] [place] [address] Aug, Acute upper respiratory infe ction, unspecified J06.9 and Other viral agents as the cause of diseases classified elsewhere B97.89 [facility] [address] [facility] [id number] [address] [place] [address] Jul, Adjustment disorder with dep ressed mood F43.21 and Bipolar 1 disorder, manic, mild F31.11 [facility] [address] [facility] [id number] [address] [place] [address] Jul, Bipolar 1 disorder, manic, m ild F31.11 ; Adjustment disorder with anxiety F43.22 and Adjustment disorder with depressed mood F43.21 [facility] [address] [facility] [id number] [address] [place] [address] Jul, Normal in second t rimester Z34.92 [facility] [id number] [place] [address] 11 Jul, 2016 Contact dermatitis, unspecif ied contact dermatitis type, unspecified trigger L25.9 [facility] [id number] [place] [address] 11 Jul, 2016 Adjustment disorder with dep ressed mood F43.21 ; Adjustment disorder with anxiety F43.22 and Bipolar 1 disorder, manic, mild F31.11 [place] [address] [address] 04 Jul, 2016 Adjustment disorder with dep ressed mood F43.21 and Bipolar 1 disorder, manic, mild F31.11 [place] [address] [address] 26 Jun, 2016 Adjustment disorder with dep ressed mood F43.21 and Bipolar 1 disorder, manic, mild F31.11 [place] [address] [address] Jun, Adjustment disorder with dep ressed mood F43.21 ; Bipolar 1 disorder, manic, mild F31.11 and Anxiety, generalized F41.1 [place] [address] [address] Jun, Normal in second t rimester Z34.92 ; 18 weeks gestation of Z3A.18 and Encounter for immunization Z23 [place] [address] [place] [id number] [address] [place] [address] 07 Jun, 2016 Normal in first tr imester Z34.91 [place] [address] [place] [address] May, care in second trim carlos Z34.92 [place] [address] [place] [id number] [address] [place] [address] May, [place] [address] [place] [id number] [address] [place] [address] May, [place] [address] [place] [id number] [address] [place] [address] 15 May, 2016 Major depressive disorder, r ecurrent, moderate F33.1 [place] [address] [place] [id number] [address] [place] [address] 10 May, 2016 Normal in first tr imester Z34.91 ; Pap smear for cervical cancer screening Z12.4 ; Screen for STD (sexually transmitted disease) Z11.3 and 12 weeks gestation of Z3A.12 [place] [address] [place] [id number] [address] [place] [address] 08 May, 2016 12 weeks gestation of pregna ncy Z3A.12 ; Unspecified abdominal pain R10.9 and Other specified related conditions, unspecified trimester O26.899 [place] [address] [place] [id number] [address] [place] [address] Apr, [place] [address] [place] [id number] [address] [place] [address] Apr, [place] [address] [place] [id number] [address] [place] [address] February, [place] [address] [address] February, Bipolar 1 disorder, manic, m ild F31.11 and Adjustment disorder with depressed mood F43.21 [place] [address] [place] [id number] [address] [place] [address] Dec, Major depressive disorder, s ken episode, moderate F32.1 ; Adjustment disorder with depressed mood F43.21 and Bipolar 1 disorder, manic, mild F31.11 [place] [address] [place] [id number] [address] [place] [address] Dec, Adjustment disorder with dep ressed mood F43.21 ; Major depressive disorder, single episode, moderate F32.1 and Bipolar 1 disorder, manic, mild F31.11 [place] [address] [place] [id number] [address] [place] [address] Dec, Right hand pain M79.641 [place] [address] [place] [address] Dec, Major depressive disorder, s ken episode, moderate F32.1 and Adjustment disorder with depressed mood F43.21 [place] [address] [place] [id number] [address] [place] [address] Nov, Major depressive disorder, s ken episode, moderate F32.1 [place] [address] [place] [id number] [address] [place] [address] Nov, Adjustment disorder with dep ressed mood F43.21 ; Bipolar 1 disorder, manic, mild F31.11 and Adjustment disorder with anxiety F43.22 [place] [address] [address] Oct, [place] [address] [address] Oct, Encounter for counseling reg arding contraception Z30.9 ; Initiation of OCP (BCP) Z30.011 ; Routine screening for STI (sexually transmitted infection) Z11.3 and Dysmenorrhea N94.6 [place] [address] [place] [id number] [address] [place] [address] Sep, Acute upper respiratory infe ction, unspecified J06.9 ; Other viral agents as the cause of diseases classified elsewhere B97.89 and Post-nasal drip R09.82 [place] [address] [place] [id number] [address] [place] [address] Aug, Depressive disorder, not els ewhere classified 311 [place] [address] [address] Jul, Depression, major, recurrent , moderate F33.1 [place] [address] [place] [id number] [address] [place] [address] Jun, Major depressive disorder, r ecurrent episode, moderate 296.32 [facility] [address] [id number] [address] [place] [address] Mar, Major depression, recurrent 296.30 [facility] [address] [id number] [address] [place] [address], [place] [address] 14 Jan, 2015 [facility] [address] [id number] [address] [place] [address] Jan, [facility] [address] [id number] [address] [place] [address] Dec, [facility] [address] [id number] [address] [place] [address], [place] [address] Dec, [facility] [address] [id number] [address] [place] [address], [place] [address] Nov, [facility] [address] [id number] [address] [place] [address] Nov, [facility] [address] [id number] [address] [place] [address] Oct, [facility] [address] [id number] [address] [place] [address] Oct, [facility] [address] [id number] [address] [place] [address] Sep, [facility] [address] [id number] [address] [place] [address] Sep, [facility] [address] [id number] [address] [place] [address] Sep, [facility] [address] [id number] [address] [place] [address] Sep, [facility] [address] [id number] [address] [place] [address] Sep, [facility] [address] [id number] [address] [place] [address] Sep, [facility] [address] [id number] [address] [place] [address] 10 Aug, 2014 [facility] [address] [id number] [address] [place] [address], [place] [address] 10 Aug, 2014 [facility] [address] [id number] [address] [place] [address], [place] [address] Aug, [facility] [address] [id number] [address] [place] [address], [place] [address] Aug, [facility] [address] [id number] [address] [place] [address], [place] [address] 17 Jul, 2014 [facility] [address] [id number] [address] [place] [address], [place] [address] 17 Jul, 2014 [facility] [address] [id number] [address] [place] [address], [place] [address] 16 Jul, 2014 [facility] [address] [id number] [address] [place] [address], [place] [address] 16 Jul, 2014 [facility] [address] [id number] [address] [place] [address], [place] [address] 17 Jun, 2014 [facility] [address] [id number] [address] [place] [address], [place] [address] 17 Jun, 2014 [facility] [address] [id number] [address] [place] [address], [place] [address] 17 Jun, 2014 [facility] [address] [id number] [address] [place] [address], [place] [address] 17 Jun, 2014 [facility] [address] [id number] [address] [place] [address], [place] [address] Apr, [facility] [address] [id number] [address] [place] [address], [place] [address] Apr, [facility] [address] [id number] [address] [place] [address], [place] [address] Mar, [facility] [address] [id number] [address] [place] [address], [place] [address] Mar, [facility] [address] [id number] [facility] [place] [address] Mar, [facility] [address] [id number] [address] [place] [address], [place] [address] Mar, [facility] [address] [id number] [address] [place] [address], [place] [address] February, [facility] [address] [id number] [address] [place] [address], [place] [address] February, [facility] [address] [id number] [address] [place] [address], [place] [address] February, [facility] [address] [id number] [address] [place] [address], [place] [address] February, [facility] [address] [id number] [address] [place] [address], [place] [address] February, [facility] [address] [id number] [address] [place] [address], [place] [address] February, [facility] [address] [id number] [address] [place] [address], [place] [address] February, [facility] [address] [id number] [address] [place] [address], [place] [address] Jan, [facility] [address] [id number] [address] [place] [address], [place] [address] 24 Jan, 2014 [facility] [address] [id number] [address] [place] [address], [place] [address] 18 Jan, 2014 [facility] [address] [id number] [address] [place] [address], [place] [address] 18 Jan, 2014 [facility] [address] [id number] [address] [place] [address], [place] [address] Jan, [facility] [address] [id number] [address] [place] [address], [place] [address] Jan, [facility] [address] [id number] [address] [place] [address], [place] [address] Jan, [facility] [address] [id number] [address] [place] [address], [place] [address] Jan, [facility] [address] [id number] [address] [place] [address], [place] [address] 14 Oct, 2013 [facility] [address] [id number] [address] [place] [address], [place] [address] 14 Oct, 2013 [facility] [address] [id number] [address] [place] [address], [place] [address] Sep, [facility] [address] [id number] [address] [place] [address], [place] [address] 31 Sep, 2013 [facility] [address] [id number] [address] [place] [address], [place] [address] 11 Jun, 2013 [facility] [address] [id number] [address] [place] [address], [place] [address] 04 Jun, 2013 [facility] [address] [id number] [address] [place] [address], [place] [address] 27 Oct, 2012 [facility] [address] [id number] [address] [place] [address], [place] [address] Sep, [facility] [address] [id number] [address] [place] [address], [place] [address] 08 Sep, 2012 [facility] [address] [id number] [address] [place] [address], [place] [address] 26 Jun, 2012 [facility] [address] [id number] [address] [place] [address], [place] [address] 25 Jun, 2012 [facility] [address] [id number] [address] [place] [address], [place] [address] 24 Jun, 2012 [facility] [address] [id number] [address] [place] [address], [place] [address] 20 Jun, 2012 [facility] [address] [id number] [address] [place] [address], [place] [address] 20 Jun, 2012 [facility] [address] [id number] [address] [place] [address], [place] [address] 05 Jun, 2012 [facility] [address] [id number] [address] [place] [address], [place] [address] Apr, [facility] [address] [id number] [address] [place] [address], [place] [address] Mar, [facility] [address] [id number] [address] [place] [address], [place] [address] Mar, [facility] [address] [id number] [address] [place] [address], [place] [address] Dec, [facility] [address] [id number] [address] [place] [address], [place] [address] Oct, [facility] [address] [id number] [address] [place] [address], [place] [address] Aug, [facility] [address] [id number] [address] [place] [address], [place] [address] Aug, [facility] [address] [id number] [address] [place] [address], [place] [address] Aug, [facility] [address] [id number] [address] [place] [address], [place] [address] Aug, [facility] [address] [id number] [address] [place] [address], [place] [address] Aug, [facility] [address] [id number] [address] [place] [address], [place] [id number] 24 Jul, 2011 [facility] [address] [id number] [address] [place] [address], [place] [address] Jul, [facility] [address] [id number] [address] [place] [address], [place] [address] 15 Jun, 2011 [facility] [address] [id number] [address] [place] [address], [place] [address] 29 Jul, 2010 [facility] [address] [id number] [address] [place] [address], [place] [address] 17 Aug, 2008 [facility] [address] [facility] [id number] [address] [place] [id number] Aug, [facility] [address] [facility] [id number] [address] [place] [phone] Oct, IMMUNIZATIONS No Known Immunizations SOCIAL HISTORY Never Assessed REASON FOR VISIT EMR-[facility] PLAN OF CARE VITAL SIGNS MEDICATIONS No [...]
--- OUTSIDE RECORDS SUMMARY | 2020-01-20 19:59 | XMS REPORT ---
Author Author Candace Tirado Doctor Organization [facility] Address Unknown Phone Unavailable Care Team Providers Care Associate Teacher Name Role Phone Migration, Doctor Unavailable Unavailable PROBLEMS Type Condition ICD9-CM Code KPU43-FM Code Onset Dates Condition S tatus SNOMED Code Problem Bipolar 1 disorder, manic, mild F31.11 Active 66357833 Problem Normal in first trimester Z34.91 Active 83410540 Problem Normal in second trimester Z34.92 Active 85026645 Problem Missed period N92.6 Active 188637 00 Problem Adjustment disorder with depressed mood F43.21 Active 227483465 Problem Gender dysphoria F64.9 Active 934 44104 Problem Adjustment disorder with anxiety F43.22 Active 25666058 Problem Mood disorder F39 Active 979941 05 Problem Anxiety F41.9 Active 34920647 Problem Seasonal allergies J30.2 Active 4 [id number] ALLERGIES No Information ENCOUNTERS Encounter Location Date Diagnosis [facility] [address] [facility] [id number] [address] [place] [id number] 12 Nov, 2018 Mood disorder F39 and Gender dysphoria F64.9 [facility] [address] [facility] [id number] [address] [place] [id number] Jul, Missed period N92.6 [facility] [address] [facility] [id number] [address] [place] [address] Jul, Encounter for test , result unknown Z32.00 [facility] [address] [facility] [id number] [address] [place] [address] Jul, Hand pain, right M79.641 [facility] [address] [facility] [id number] [address] [place] [address] May, Allergic rhinitis, unspecifi ed seasonality, unspecified trigger J30.9 [facility] [address] [facility] [id number] [address] [place] [address] May, [facility] [address] [facility] [id number] [address] [place] [address] Apr, Mood disorder F39 [place] [address] [facility] [id number] [address] [place] [address] Apr, Syncope, unspecified syncope type R55 and Dizziness R42 [place] [address] [place] [id number] [address] [place] [address] Mar, Adjustment disorder with dep ressed mood F43.21 and Anxiety F41.9 [facility] [place] [id number] [facility] [id number] [place] [address] February, Seasonal allergies J30.2 [place] [address] [place] [id number] [address] [place] [address] February, [facility] [address] [place] [id number] [place] [address] Dec, Seasonal allergic rhinitis, unspecified trigger J30.2 and Sore throat J02.9 [place] [address] [place] [id number] [address] [place] [address] Oct, Mood disorder F39 [place] [address] [place] [id number] [address] [place] [address] Oct, Mood disorder F39 [place] [address] [place] [id number] [address] [place] [address] Sep, Adjustment disorder with dep ressed mood F43.21 ; Screening cholesterol level Z13.220 and Screening for diabetes mellitus Z13.1 [place] [address] [facility] [id number] [address] [place] [address] Sep, Adjustment disorder with anx iety F43.22 and Adjustment disorder with depressed mood F43.21 [facility] [address] [facility] [id number] [address] [place] [address] Aug, Pharyngitis due to other org anism J02.8 [facility] [address] [facility] [id number] [address] [place] [address] 10 Aug, 2017 Sore throat J02.9 and Acute nasopharyngitis (common cold) J00 [facility] [address] [facility] [id number] [address] [place] [address] 19 Mar, 2017 Acute nasopharyngitis J00 [facility] [address] [facility] [id number] [address] [place] [address] 07 Mar, 2017 Adjustment disorder with anx iety F43.22 ; Adjustment disorder with depressed mood F43.21 and Bipolar 1 disorder, manic, mild F31.11 [facility] [address] [facility] [id number] [address] [place] [address] Mar, [facility] [address] [facility] [id number] [address] [place] [address] 08 Nov, 2016 39 weeks gestation of pregna ncy Z3A.39 [facility] [address] [place] [id number] [address] [place] [address] Nov, care in third trime ster Z34.93 [facility] [address] [place] [id number] [address] [place] [address] Oct, Normal in third tr imester Z34.93 [facility] [address] [place] [id number] [address] [place] [address] Oct, [facility] [address] [facility] [id number] [address] [place] [address] Oct, Third trimester at less than 36 weeks Z33.1 [facility] [address] [facility] [id number] [address] [place] [address] Oct, [facility] [address] [place] [id number] [place] [id number] Oct, [facility] [address] [facility] [id number] [address] [place] [address] Oct, Normal in third tr imester Z34.93 [facility] [address] [facility] [id number] [address] [place] [address] Sep, Normal in third tr imester Z34.93 [facility] [address] [facility] [id number] [address] [place] [address] Sep, Third trimester at less than 36 weeks Z33.1 and Encounter for immunization Z23 [facility] [address] [facility] [id number] [address] [place] [address] Aug, Adjustment disorder with anx iety F43.22 and Adjustment disorder with depressed mood F43.21 [place] [address] [facility] [id number] [address] [place] [address] Aug, Abnormal glucose tolerance t est in O99.810 [facility] [address] [facility] [id number] [address] [place] [address] Aug, [facility] [address] [facility] [id number] [address] [place] [address] Aug, Normal [facility] second t [facility] Z[facility].92 [facility] [address] [facility] [id number] [address] [place] [address] Aug, Acute upper respiratory infe ction, unspecified J06.9 and Other viral agents as the cause of diseases classified elsewhere B97.89 [facility] [address] [facility] [id number] [address] [place] [address] Jul, Adjustment disorder with dep ressed mood F43.21 and Bipolar 1 disorder, manic, mild F31.11 [facility] [address] [facility] [id number] [address] [place] [address] Jul, Bipolar 1 disorder, manic, m ild F31.11 ; Adjustment disorder with anxiety F43.22 and Adjustment disorder with depressed mood F43.21 [facility] [address] [facility] [id number] [address] [place] [address] Jul, Normal in second t rimester Z34.92 [facility] [id number] [place] [address] 11 Jul, 2016 Contact dermatitis, unspecif ied contact dermatitis type, unspecified trigger L25.9 [facility] [address] [place] [address] 11 Jul, 2016 Adjustment disorder with dep ressed mood F43.21 ; Adjustment disorder with anxiety F43.22 and Bipolar 1 disorder, manic, mild F31.11 [place] [address] [address] 04 Jul, 2016 Adjustment disorder with dep ressed mood F43.21 and Bipolar 1 disorder, manic, mild F31.11 [place] [address] [id number] 26 Jun, 2016 Adjustment disorder with dep ressed mood F43.21 and Bipolar 1 disorder, manic, mild F31.11 [place] [address] [address] Jun, Adjustment disorder with dep ressed mood F43.21 ; Bipolar 1 disorder, manic, mild F31.11 and Anxiety, generalized F41.1 [place] [address] [address] Jun, Normal in second t rimester Z34.92 ; 18 weeks gestation of Z3A.18 and Encounter for immunization Z23 [place] [address] [place] [id number] [address] [place] [address] 07 Jun, 2016 Normal in first tr imester Z34.91 [place] [address] [place] [address] May, care in second trim carlos Z34.92 [place] [address] [place] [id number] [address] [place] [phone] May, [place] [address] [place] [id number] [address] [place] [address] May, [place] [address] [place] [id number] [address] [place] [address] 15 May, 2016 Major depressive disorder, r ecurrent, moderate F33.1 [place] [address] [place] [id number] [address] [place] [address] 10 May, 2016 Normal in first tr imester Z34.91 ; Pap smear for cervical cancer screening Z12.4 ; Screen for STD (sexually transmitted disease) Z11.3 and 12 weeks gestation of Z3A.12 [place] [address] [place] [id number] [address] [place] [address] 08 May, 2016 12 weeks gestation of pregna ncy Z3A.12 ; Unspecified abdominal pain R10.9 and Other specified related conditions, unspecified trimester O26.899 [place] [address] [place] [id number] [address] [place] [address] Apr, [place] [address] [place] [id number] [address] [place] [address] Apr, [place] [address] [place] [id number] [address] [place] [address] February, [place] [address] [address] February, Bipolar 1 disorder, manic, m ild F31.11 and Adjustment disorder with depressed mood F43.21 [place] [address] [place] [id number] [address] [place] [address] Dec, Major depressive disorder, s ken episode, moderate F32.1 ; Adjustment disorder with depressed mood F43.21 and Bipolar 1 disorder, manic, mild F31.11 [place] [address] [place] [id number] [address] [place] [address] Dec, Adjustment disorder with dep ressed mood F43.21 ; Major depressive disorder, single episode, moderate F32.1 and Bipolar 1 disorder, manic, mild F31.11 [place] [address] [place] [id number] [address] [place] [address] Dec, Right hand pain M79.641 [place] [address] [place] [address] Dec, Major depressive disorder, s ken episode, moderate F32.1 and Adjustment disorder with depressed mood F43.21 [place] [address] [place] [id number] [address] [place] [address] Nov, Major depressive disorder, s ken episode, moderate F32.1 [place] [address] [place] [id number] [address] [place] [address] Nov, Adjustment disorder with dep ressed mood F43.21 ; Bipolar 1 disorder, manic, mild F31.11 and Adjustment disorder with anxiety F43.22 [place] [address] [address] Oct, [place] [address] [address] Oct, Encounter for counseling reg arding contraception Z30.9 ; Initiation of OCP (BCP) Z30.011 ; Routine screening for STI (sexually transmitted infection) Z11.3 and Dysmenorrhea N94.6 [place] [address] [place] [id number] [address] [place] [address] Sep, Acute upper respiratory infe ction, unspecified J06.9 ; Other viral agents as the cause of diseases classified elsewhere B97.89 and Post-nasal drip R09.82 [place] [address] [place] [id number] [address] [place] [address] Aug, Depressive disorder, not els ewhere classified 311 [place] [address] [address] Jul, Depression, major, recurrent , moderate F33.1 [place] [address] [place] [id number] [address] [place] [address] Jun, Major depressive disorder, r ecurrent episode, moderate 296.32 [facility] [address] [id number] [address] [place] [address] Mar, Major depression, recurrent 296.30 [facility] [address] [id number] [address] [place] [address], [place] [address] 14 Jan, 2015 [facility] [address] [id number] [address] [place] [id number] Jan, [facility] [address] [id number] [address] [place] [address] Dec, [facility] [address] [place] [address] [id number] [address] [place] [address], [place] [address] Dec, [facility] [address] [id number] [address] [place] [address], [place] [address] Nov, [facility] [address] [id number] [address] [place] [address] Nov, [facility] [address] [id number] [address] [place] [address] Oct, [facility] [address] [id number] [address] [place] [phone] Oct, [facility] [address] [id number] [address] [place] [address] Sep, [facility] [address] [id number] [address] [place] [address] Sep, [facility] [address] [id number] [address] [place] [address] Sep, [facility] [address] [id number] [address] [place] [address] Sep, [facility] [address] [id number] [address] [place] [phone] Sep, [facility] [address] [id number] [address] [place] [address] Sep, [facility] [address] [id number] [address] [place] [address] 10 Aug, 2014 [facility] [address] [id number] [address] [place] [address], [place] [address] 10 Aug, 2014 [facility] [address] [id number] [address] [place] [address], [place] [address] Aug, [facility] [address] [id number] [address] [place] [address], [place] [address] Aug, [facility] [address] [id number] [address] [place] [address], [place] [address] 17 Jul, 2014 [facility] [address] [id number] [address] [place] [address], [place] [address] 17 Jul, 2014 [facility] [address] [id number] [address] [place] [address], [place] [address] 16 Jul, 2014 [facility] [address] [id number] [address] [place] [address], [place] [address] 16 Jul, 2014 [facility] [address] [id number] [address] [place] [address], [place] [address] 17 Jun, 2014 [facility] [address] [id number] [address] [place] [address], [place] [address] 17 Jun, 2014 [facility] [address] [id number] [address] [place] [address], [place] [address] 17 Jun, 2014 [facility] [address] [id number] [address] [place] [address], [place] [address] 17 Jun, 2014 [facility] [address] [id number] [address] [place] [address], [place] [address] Apr, [facility] [address] [id number] [address] [place] [address], [place] [address] Apr, [facility] [address] [id number] [address] [place] [address], [place] [address] Mar, [facility] [address] [id number] [address] [place] [address], [place] [address] Mar, [facility] [address] [id number] [address] [place] [address] Mar, [facility] [address] [id number] [address] [place] [address], [place] [address] Mar, [facility] [address] [id number] [address] [place] [address], [place] [address] February, [facility] [address] [id number] [address] [place] [address], [place] [address] February, [facility] [address] [id number] [address] [place] [address], [place] [address] February, [facility] [address] [id number] [address] [place] [address], [place] [address] February, [facility] [address] [id number] [address] [place] [address], [place] [address] February, [facility] [address] [id number] [address] [place] [address], [place] [address] February, [facility] [address] [id number] [address] [place] [address], [place] [address] February, [facility] [address] [id number] [address] [place] [address], [place] [address] Jan, [facility] [address] [id number] [address] [place] [address], [place] [address] 24 Jan, 2014 [facility] [address] [id number] [address] [place] [address], [place] [address] 18 Jan, 2014 [facility] [address] [id number] [address] [place] [address], [place] [address] 18 Jan, 2014 [facility] [address] [id number] [address] [place] [address], [place] [address] Jan, [facility] [address] [id number] [address] [place] [address], [place] [address] Jan, [facility] [address] [id number] [address] [place] [address], [place] [address] Jan, [facility] [address] [id number] [address] [place] [address], [place] [address] Jan, [facility] [address] [id number] [address] [place] [address], [place] [address] 14 Oct, 2013 [facility] [address] [id number] [address] [place] [address], [place] [address] 14 Oct, 2013 [facility] [address] [id number] [address] [place] [address], [place] [address] Sep, [facility] [address] [id number] [address] [place] [address], [place] [address] 31 Sep, 2013 [facility] [address] [id number] [address] [place] [address], [place] [address] 11 Jun, 2013 [facility] [address] [id number] [address] [place] [address], [place] [address] 04 Jun, 2013 [facility] [address] [id number] [address] [place] [address], [place] [address] 27 Oct, 2012 [facility] [address] [id number] [address] [place] [address], [place] [address] Sep, [facility] [address] [id number] [address] [place] [address], [place] [address] 08 Sep, 2012 [facility] [address] [id number] [address] [place] [address], [place] [address] 26 Jun, 2012 [facility] [address] [id number] [address] [place] [address], [place] [address] 25 Jun, 2012 [facility] [address] [id number] [address] [place] [address], [place] [id number] 24 Jun, 2012 [facility] [address] [id number] [address] [place] [address], [place] [address] 20 Jun, 2012 [facility] [address] [id number] [address] [place] [address], [place] [address] 20 Jun, 2012 [facility] [address] [id number] [address] [place] [address], [place] [address] 05 Jun, 2012 [facility] [address] [id number] [address] [place] [address], [place] [address] Apr, [facility] [address] [id number] [address] [place] [address], [place] [address] Mar, [facility] [address] [id number] [address] [place] [address], [place] [address] Mar, [facility] [address] [id number] [address] [place] [address], [place] [address] Dec, [facility] [address] [id number] [address] [place] [address], [place] [address] Oct, [facility] [address] [id number] [address] [place] [address], [place] [address] Aug, [facility] [address] [id number] [address] [place] [address], [place] [address] Aug, [facility] [address] [id number] [address] [place] [address], [place] [address] Aug, [facility] [address] [id number] [address] [place] [address], [place] [address] Aug, [facility] [address] [id number] [address] [place] [address], [place] [id number] Aug, [facility] [address] [id number] [address] [place] [address], [place] [id number] 24 Jul, 2011 [facility] [address] [id number] [address] [place] [address], [place] [id number] Jul, [facility] [address] [id number] [address] [place] [address], [place] [id number] 15 Jun, 2011 [facility] [address] [id number] [address] [place] [address], [place] [id number] 29 Jul, 2010 [facility] [address] [id number] [address] [place] [address], [place] [id number] 17 Aug, 2008 [facility] [address] [facility] [id number] [address] [place] [id number] Aug, [facility] [address] [facility] [id number] [address] [place] [id number] Oct, IMMUNIZATIONS No Known Immunizations SOCIAL HISTORY Never Assessed REASON FOR VISIT [facility] [place], [place] PLAN OF CARE VITAL SIGNS MEDICATIONS No [...]
--- OUTSIDE RECORDS SUMMARY | 2020-01-20 19:59 | XMS REPORT ---
Author Author Candace Tirado Doctor Organization [facility] Address Unknown Phone Unavailable Care Team Providers Care Scientific Research Manager Name Role Phone Migration, Doctor Unavailable Unavailable PROBLEMS Type Condition ICD9-CM Code MVF26-DL Code Onset Dates Condition S tatus SNOMED Code Problem Bipolar 1 disorder, manic, mild F31.11 Active 06295254 Problem Normal in first trimester Z34.91 Active 20285236 Problem Normal in second trimester Z34.92 Active 24412454 Problem Missed period N92.6 Active 126072 00 Problem Adjustment disorder with depressed mood F43.21 Active 929851420 Problem Gender dysphoria F64.9 Active 934 86747 Problem Adjustment disorder with anxiety F43.22 Active 62434585 Problem Mood disorder F39 Active 286081 05 Problem Anxiety F41.9 Active 17503304 Problem Seasonal allergies J30.2 Active 4 [id number] ALLERGIES No Information ENCOUNTERS Encounter Location Date Diagnosis [facility] [address] [facility] [id number] [address] [place] [id number] 12 Nov, 2018 Mood disorder F39 and Gender dysphoria F64.9 [facility] [address] [facility] [id number] [address] [place] [address] Jul, Missed period N92.6 [facility] [address] [facility] [id number] [address] [place] [address] Jul, Encounter for test , result unknown Z32.00 [facility] [address] [facility] [id number] [address] [place] [address] Jul, Hand pain, right M79.641 [facility] [address] [facility] [id number] [address] [place] [address] May, Allergic rhinitis, unspecifi ed seasonality, unspecified trigger J30.9 [facility] [address] [facility] [id number] [address] [place] [phone] May, [facility] [address] [facility] [id number] [address] [place] [address] Apr, Mood disorder F39 [place] [id number] [facility] [id number] [address] [place] [address] Apr, Syncope, unspecified syncope type R55 and Dizziness R42 [place] [address] [place] [id number] [address] [place] [address] Mar, Adjustment disorder with dep ressed mood F43.21 and Anxiety F41.9 [facility] [place] [id number] [facility] [id number] [place] [address] February, Seasonal allergies J30.2 [place] [address] [place] [id number] [address] [place] [address] February, [facility] [address] [place] [id number] [place] [address] Dec, Seasonal allergic rhinitis, unspecified trigger J30.2 and Sore throat J02.9 [place] [address] [place] [id number] [address] [place] [address] Oct, Mood disorder F39 [place] [address] [place] [id number] [address] [place] [address] Oct, Mood disorder F39 [place] [address] [place] [id number] [address] [place] [address] Sep, Adjustment disorder with dep ressed mood F43.21 ; Screening cholesterol level Z13.220 and Screening for diabetes mellitus Z13.1 [place] [address] [facility] [id number] [address] [place] [address] Sep, Adjustment disorder with anx iety F43.22 and Adjustment disorder with depressed mood F43.21 [facility] [address] [facility] [id number] [address] [place] [address] Aug, Pharyngitis due to other org anism J02.8 [facility] [address] [facility] [id number] [address] [place] [address] 10 Aug, 2017 Sore throat J02.9 and Acute nasopharyngitis (common cold) J00 [facility] [address] [facility] [id number] [address] [place] [address] 19 Mar, 2017 Acute nasopharyngitis J00 [facility] [address] [facility] [id number] [address] [place] [address] 07 Mar, 2017 Adjustment disorder with anx iety F43.22 ; Adjustment disorder with depressed mood F43.21 and Bipolar 1 disorder, manic, mild F31.11 [facility] [address] [facility] [id number] [address] [place] [address] Mar, [facility] [address] [facility] [id number] [address] [place] [address] 08 Nov, 2016 39 weeks gestation of pregna ncy Z3A.39 [facility] [address] [place] [id number] [address] [place] [address] Nov, care in third trime ster Z34.93 [facility] [address] [place] [id number] [address] [place] [address] Oct, Normal in third tr imester Z34.93 [facility] [address] [place] [id number] [address] [place] [address] Oct, [facility] [address] [facility] [id number] [address] [place] [address] Oct, Third trimester at less than 36 weeks Z33.1 [facility] [address] [facility] [id number] [address] [place] [address] Oct, [facility] [address] [place] [id number] [place] [id number] Oct, [facility] [address] [facility] [id number] [address] [place] [address] Oct, Normal in third tr imester Z34.93 [facility] [address] [facility] [id number] [address] [place] [address] Sep, Normal in third tr imester Z34.93 [facility] [address] [facility] [id number] [address] [place] [address] Sep, Third trimester at less than 36 weeks Z33.1 and Encounter for immunization Z23 [facility] [address] [facility] [id number] [address] [place] [address] Aug, Adjustment disorder with anx iety F43.22 and Adjustment disorder with depressed mood F43.21 [place] [address] [facility] [id number] [address] [place] [address] Aug, Abnormal glucose tolerance t est in O99.810 [facility] [address] [facility] [id number] [address] [place] [address] Aug, [facility] [address] [facility] [id number] [address] [place] [address] Aug, [facility]92 [facility] [address] [facility] [id number] [address] [place] [address] Aug, Acute upper respiratory infe ction, unspecified J06.9 and Other viral agents as the cause of diseases classified elsewhere B97.89 [facility] [address] [facility] [id number] [address] [place] [address] Jul, Adjustment disorder with dep ressed mood F43.21 and Bipolar 1 disorder, manic, mild F31.11 [facility] [address] [facility] [id number] [address] [place] [address] Jul, Bipolar 1 disorder, manic, m ild F31.11 ; Adjustment disorder with anxiety F43.22 and Adjustment disorder with depressed mood F43.21 [facility] [address] [facility] [id number] [address] [place] [address] Jul, Normal in second t rimester Z34.92 [facility] [address] [place] [address] 11 Jul, 2016 Contact dermatitis, unspecif ied contact dermatitis type, unspecified trigger L25.9 [facility] [address] [place] [address] 11 Jul, 2016 Adjustment disorder with dep ressed mood F43.21 ; Adjustment disorder with anxiety F43.22 and Bipolar 1 disorder, manic, mild F31.11 [place] [address] [address] 04 Jul, 2016 Adjustment disorder with dep ressed mood F43.21 and Bipolar 1 disorder, manic, mild F31.11 [place] [address] [address] 26 Jun, 2016 Adjustment disorder with dep ressed mood F43.21 and Bipolar 1 disorder, manic, mild F31.11 [place] [address] [address] Jun, Adjustment disorder with dep ressed mood F43.21 ; Bipolar 1 disorder, manic, mild F31.11 and Anxiety, generalized F41.1 [place] [address] [address] Jun, Normal in second t rimester Z34.92 ; 18 weeks gestation of Z3A.18 and Encounter for immunization Z23 [place] [address] [place] [id number] [address] [place] [address] 07 Jun, 2016 Normal in first tr imester Z34.91 [place] [address] [place] [address] May, care in second trim carlos Z34.92 [place] [address] [place] [id number] [address] [place] [address] May, [place] [address] [place] [id number] [address] [place] [address] May, [place] [address] [place] [id number] [address] [place] [address] 15 May, 2016 Major depressive disorder, r ecurrent, moderate F33.1 [place] [address] [place] [id number] [address] [place] [address] 10 May, 2016 Normal in first tr imester Z34.91 ; Pap smear for cervical cancer screening Z12.4 ; Screen for STD (sexually transmitted disease) Z11.3 and 12 weeks gestation of Z3A.12 [place] [address] [place] [id number] [address] [place] [address] 08 May, 2016 12 weeks gestation of pregna ncy Z3A.12 ; Unspecified abdominal pain R10.9 and Other specified related conditions, unspecified trimester O26.899 [place] [address] [place] [id number] [address] [place] [address] Apr, [place] [address] [place] [id number] [address] [place] [address] Apr, [place] [address] [place] [id number] [address] [place] [address] February, [place] [address] [address] February, Bipolar 1 disorder, manic, m ild F31.11 and Adjustment disorder with depressed mood F43.21 [place] [address] [place] [id number] [address] [place] [address] Dec, Major depressive disorder, s ken episode, moderate F32.1 ; Adjustment disorder with depressed mood F43.21 and Bipolar 1 disorder, manic, mild F31.11 [place] [address] [place] [id number] [address] [place] [address] Dec, Adjustment disorder with dep ressed mood F43.21 ; Major depressive disorder, single episode, moderate F32.1 and Bipolar 1 disorder, manic, mild F31.11 [place] [address] [place] [id number] [address] [place] [address] Dec, Right hand pain M79.641 [place] [address] [place] [address] Dec, Major depressive disorder, s ken episode, moderate F32.1 and Adjustment disorder with depressed mood F43.21 [place] [address] [place] [id number] [address] [place] [address] Nov, Major depressive disorder, s ken episode, moderate F32.1 [place] [address] [place] [id number] [address] [place] [address] Nov, Adjustment disorder with dep ressed mood F43.21 ; Bipolar 1 disorder, manic, mild F31.11 and Adjustment disorder with anxiety F43.22 [place] [address] [address] Oct, [place] [address] [address] Oct, Encounter for counseling reg arding contraception Z30.9 ; Initiation of OCP (BCP) Z30.011 ; Routine screening for STI (sexually transmitted infection) Z11.3 and Dysmenorrhea N94.6 [place] [address] [place] [id number] [address] [place] [address] Sep, Acute upper respiratory infe ction, unspecified J06.9 ; Other viral agents as the cause of diseases classified elsewhere B97.89 and Post-nasal drip R09.82 [place] [address] [place] [id number] [address] [place] [address] Aug, Depressive disorder, not els ewhere classified 311 [place] [address] [address] Jul, Depression, major, recurrent , moderate F33.1 [place] [address] [place] [id number] [address] [place] [address] Jun, Major depressive disorder, r ecurrent episode, moderate 296.32 [facility] [address] [id number] [address] [place] [address] Mar, Major depression, recurrent 296.30 [facility] [address] [id number] [address] [place] [address], [place] [address] 14 Jan, 2015 [facility] [address] [id number] [address] [place] [phone] Jan, [facility] [address] [id number] [address] [place] [address] Dec, [facility] [address] [id number] [address] [place] [address], [place] [address] Dec, [facility] [address] [id number] [address] [place] [address], [place] [address] Nov, [facility] [address] [id number] [address] [place] [address] Nov, [facility] [address] [id number] [address] [place] [address] Oct, [facility] [address] [id number] [address] [place] [address] Oct, [facility] [address] [id number] [address] [place] [address] Sep, [facility] [address] [id number] [address] [place] [address] Sep, [facility] [address] [id number] [address] [place] [address] Sep, [facility] [address] [id number] [address] [place] [address] Sep, [facility] [address] [id number] [address] [place] [address] Sep, [facility] [address] [id number] [address] [place] [address] Sep, [facility] [address] [id number] [address] [place] [id number] 10 Aug, 2014 [facility] [address] [id number] [address] [place] [address], [place] [address] 10 Aug, 2014 [facility] [address] [id number] [address] [place] [address], [place] [address] Aug, [facility] [address] [id number] [address] [place] [address], [place] [address] Aug, [facility] [address] [id number] [address] [place] [address], [place] [address] 17 Jul, 2014 [facility] [address] [id number] [address] [place] [address], [place] [address] 17 Jul, 2014 [facility] [address] [id number] [address] [place] [address], [place] [address] 16 Jul, 2014 [facility] [address] [id number] [address] [place] [address], [place] [address] 16 Jul, 2014 [facility] [address] [id number] [address] [place] [address], [place] [address] 17 Jun, 2014 [facility] [address] [id number] [address] [place] [address], [place] [address] 17 Jun, 2014 [facility] [address] [id number] [address] [place] [address], [place] [address] 17 Jun, 2014 [facility] [address] [id number] [address] [place] [address], [place] [address] 17 Jun, 2014 [facility] [address] [id number] [address] [place] [address], [place] [address] Apr, [facility] [address] [id number] [address] [place] [address], [place] [address] Apr, [facility] [address] [id number] [address] [place] [address], [place] [address] Mar, [facility] [address] [id number] [address] [place] [address], [place] [address] Mar, [facility] [address] [id number] [facility] [place] [address] Mar, [facility] [address] [id number] [address] [place] [address], [place] [address] Mar, [facility] [address] [id number] [address] [place] [address], [place] [address] February, [facility] [address] [id number] [address] [place] [address], [place] [address] February, [facility] [address] [id number] [address] [place] [address], [place] [address] February, [facility] [address] [id number] [address] [place] [address], [place] [address] February, [facility] [address] [id number] [address] [place] [address], [place] [address] February, [facility] [address] [id number] [address] [place] [address], [place] [address] February, [facility] [address] [id number] [address] [place] [address], [place] [address] February, [facility] [address] [id number] [address] [place] [address], [place] [address] Jan, [facility] [address] [id number] [address] [place] [address], [place] [address] 24 Jan, 2014 [facility] [address] [id number] [address] [place] [address], [place] [address] 18 Jan, 2014 [facility] [address] [id number] [address] [place] [address], [place] [address] 18 Jan, 2014 [facility] [address] [id number] [address] [place] [address], [place] [address] Jan, [facility] [address] [id number] [address] [place] [address], [place] [address] Jan, [facility] [address] [id number] [address] [place] [address], [place] [address] Jan, [facility] [address] [id number] [address] [place] [address], [place] [address] Jan, [facility] [address] [id number] [address] [place] [address], [place] [address] 14 Oct, 2013 [facility] [address] [id number] [address] [place] [address], [place] [address] 14 Oct, 2013 [facility] [address] [id number] [address] [place] [address], [place] [address] Sep, [facility] [address] [id number] [address] [place] [address], [place] [address] 31 Sep, 2013 [facility] [address] [id number] [address] [place] [address], [place] [address] 11 Jun, 2013 [facility] [address] [id number] [address] [place] [address], [place] [address] 04 Jun, 2013 [facility] [address] [id number] [address] [place] [address], [place] [address] 27 Oct, 2012 [facility] [address] [id number] [address] [place] [address], [place] [address] Sep, [facility] [address] [id number] [address] [place] [address], [place] [address] 08 Sep, 2012 [facility] [address] [id number] [address] [place] [address], [place] [address] 26 Jun, 2012 [facility] [address] [id number] [address] [place] [address], [place] [address] 25 Jun, 2012 [facility] [address] [id number] [address] [place] [address], [place] [address] 24 Jun, 2012 [facility] [address] [id number] [address] [place] [address], [place] [address] 20 Jun, 2012 [facility] [address] [id number] [address] [place] [address], [place] [address] 20 Jun, 2012 [facility] [address] [id number] [address] [place] [address], [place] [address] 05 Jun, 2012 [facility] [address] [id number] [address] [place] [address], [place] [address] Apr, [facility] [address] [id number] [address] [place] [address], [place] [address] Mar, [facility] [address] [id number] [address] [place] [address], [place] [address] Mar, [facility] [address] [id number] [address] [place] [address], [place] [address] Dec, [facility] [address] [id number] [address] [place] [address], [place] [address] Oct, [facility] [address] [id number] [address] [place] [address], [place] [address] Aug, [facility] [address] [id number] [address] [place] [address], [place] [address] Aug, [facility] [address] [id number] [address] [place] [address], [place] [address] Aug, [facility] [address] [id number] [address] [place] [address], [place] [address] Aug, [facility] [address] [id number] [address] [place] [address], [place] [address] Aug, [facility] [address] [id number] [address] [place] [address], [place] [address] 24 Jul, 2011 [facility] [address] [id number] [address] [place] [address], [place] [address] Jul, [facility] [address] [id number] [address] [place] [address], [place] [address] 15 Jun, 2011 [facility] [address] [id number] [address] [place] [address], [place] [id number] 29 Jul, 2010 [facility] [address] [id number] [address] [place] [address], [place] [id number] 17 Aug, 2008 [facility] [address] [facility] [id number] [address] [place] [id number] Aug, [facility] [address] [facility] [id number] [address] [place] [id number] Oct, IMMUNIZATIONS No Known Immunizations SOCIAL HISTORY Never Assessed REASON FOR VISIT EMR-[facility] [place] PLAN OF CARE VITAL SIGNS MEDICATIONS Medication Instructions Dosage Frequency Start Date End Date Duration S tatus Zoloft 50 mg 1 tablet by Oral rou te 1 time per day take 1/2 tab daily X7 days, then take 1 tab daily. Nov, Activ e RESULTS No Results PROCEDURES No Known procedures [...]
--- OUTSIDE RECORDS SUMMARY | 2020-01-20 19:59 | XMS REPORT ---
Author Author Candace ABDUL Organization [facility] Address [address] [place] [address] Care Team Providers Care Landmen Name Role Phone LOLY ABDULTA Unavailable PROBLEMS Type Condition ICD9-CM Code [id number] Code Onset Dates Condition S tatus SNOMED Code Problem Adjustment disorder with depressed mood F43.21 Active 057076766 Problem Normal in first trimester Z34.91 Active 65681690 Problem Bipolar 1 disorder, manic, mild F31.11 Active 65927384 Problem Missed period N92.6 Active 292344 00 Problem Seasonal allergies J30.2 Active 4 13090212 Problem Adjustment disorder with anxiety F43.22 Active 88407632 Problem Normal in second trimester Z34.92 Active 72990828 Problem Anxiety F41.9 Active 71804154 Problem Mood disorder F39 Active 106942 05 ALLERGIES No Known Allergies ENCOUNTERS Encounter Location Date Diagnosis [facility] [address] [place] [id number] [address] [place] [address] 24 Jul, 2018 Missed period N92.6 [facility] [address] [place] [id number] [address] [place] [address] 22 Jul, 2018 Encounter for test , result unknown Z32.00 [facility] [address] [facility] [id number] [address] [place] [address] Jul, Hand pain, right M79.641 [facility] [address] [facility] [id number] [address] [place] [address] May, Allergic rhinitis, unspecifi ed seasonality, unspecified trigger J30.9 [facility] [address] [facility] [id number] [address] [place] [address] May, [facility] [address] [place] [id number] [address] [place] [address] Apr, Mood disorder F39 [facility] [address] [address] Apr, Syncope, unspecified syncope type R55 and Dizziness R42 [place] [address] [address] Mar, Adjustment disorder with dep ressed mood F43.21 and Anxiety F41.9 [facility] [place] [address] [address] February, Seasonal allergies J30.2 [place] [address] [address] February, [facility] [place] [address] [address] Dec, Seasonal allergic rhinitis, unspecified trigger J30.2 and Sore throat J02.9 [place] [address] [address] Oct, Mood disorder F39 [place] [address] [address] Oct, Mood disorder F39 [place] [address] [address] Sep, Adjustment disorder with dep ressed mood F43.21 ; Screening cholesterol level Z13.220 and Screening for diabetes mellitus Z13.1 [place] [address] [address] Sep, Adjustment disorder with anx iety F43.22 and Adjustment disorder with depressed mood F43.21 [facility] [place] [address] [address] Aug, Pharyngitis due to other org anism J02.8 [facility] [place] [address] [address] Aug, Sore throat J02.9 and Acute nasopharyngitis (common cold) J00 [facility] [address] [id number] [address] [place] [address] 19 Mar, 2017 Acute nasopharyngitis J00 [facility] [address] [facility] [id number] [address] [place] [address] 07 Mar, 2017 Adjustment disorder with anx iety F43.22 ; Adjustment disorder with depressed mood F43.21 and Bipolar 1 disorder, manic, mild F31.11 [facility] [address] [facility] [id number] [address] [place] [address] Mar, [facility] [address] [facility] [id number] [address] [place] [address] 08 Nov, 2016 39 weeks gestation of pregna ncy Z3A.39 [facility] [address] [facility] [id number] [address] [place] [address] Nov, care in third trime ster Z34.93 [facility] [address] [facility] [id number] [address] [place] [address] Oct, Normal in third tr imester Z34.93 [facility] [address] [facility] [id number] [address] [place] [address] Oct, [facility] [address] [facility] [id number] [address] [place] [address] Oct, Third trimester at less than 36 weeks Z33.1 [facility] [address] [facility] [id number] [address] [place] [address] Oct, [facility] [id number] [place] [id number] Oct, [facility] [address] [facility] [id number] [address] [place] [address] Oct, Normal in third tr imester Z34.93 [facility] [address] [facility] [id number] [address] [place] [address] Sep, Normal in third tr imester Z34.93 [facility] [address] [place] [id number] [address] [place] [address] 07 Sep, 2016 Third trimester at less than 36 weeks Z33.1 and Encounter for immunization Z23 [facility] [address] [facility] [id number] [address] [place] [address] 23 Aug, 2016 Adjustment disorder with anx iety F43.22 and Adjustment disorder with depressed mood F43.21 [place] [address] [place] [address] 16 Aug, 2016 Abnormal glucose tolerance t est in O99.810 [place] [address] [address] Aug, [place] [address] [place] [id number] [place] [address] Aug, Normal in second [facility] [address] [place] [address] [address] [facility] [address] [place] [id number] [address] [place] [address] Aug, Acute upper respiratory infe ction, unspecified J06.9 and Other viral agents as the cause of diseases classified elsewhere B97.89 [place] [address] [place] [address] Jul, Adjustment disorder with dep ressed mood F43.21 and Bipolar 1 disorder, manic, mild F31.11 [place] [address] [place] [address] Jul, Bipolar 1 disorder, manic, m ild F31.11 ; Adjustment disorder with anxiety F43.22 and Adjustment disorder with depressed mood F43.21 [place] [address] [place] [id number] [address] [place] [address] 12 Jul, 2016 [facility] second [facility] Z34.92 [facility] [address] [place] [id number] [address] [place] [address] Jul, Contact dermatitis, unspecif ied contact dermatitis type, unspecified trigger L25.9 [facility] [address] [facility] [id number] [address] [place] [address] 11 Jul, 2016 Adjustment disorder with dep ressed mood F43.21 ; Adjustment disorder with anxiety F43.22 and Bipolar 1 disorder, manic, mild F31.11 [facility] [address] [facility] [id number] [address] [place] [address] 04 Jul, 2016 Adjustment disorder with dep ressed mood F43.21 and Bipolar 1 disorder, manic, mild F31.11 [place] [address] [id number] [address] [place] [address] 26 Jun, 2016 Adjustment disorder with dep ressed mood F43.21 and Bipolar 1 disorder, manic, mild F31.11 [place] [address] [facility] [id number] [address] [place] [address] 19 Jun, 2016 Adjustment disorder with dep ressed mood F43.21 ; Bipolar 1 disorder, manic, mild F31.11 and Anxiety, generalized F41.1 [place] [address] [facility] [id number] [address] [place] [address] 19 Jun, 2016 Normal in second t rimester Z34.92 ; 18 weeks gestation of Z3A.18 and Encounter for immunization Z23 [place] [address] [facility] [id number] [address] [place] [address] 07 Jun, 2016 Normal in first tr imester Z34.91 [place] [address] [facility] [id number] [address] [place] [address] May, care in second trim carlos Z34.92 [place] [address] [facility] [id number] [address] [place] [address] May, [place] [address] [facility] [id number] [address] [place] [address] May, [place] [address] [facility] [id number] [address] [place] [address] May, Major depressive disorder, r ecurrent, moderate F33.1 [place] [address] [id number] [address] [place] [address] 10 May, 2016 Normal in first tr imester Z34.91 ; Pap smear for cervical cancer screening Z12.4 ; Screen for STD (sexually transmitted disease) Z11.3 and 12 weeks gestation of Z3A.12 [place] [address] [id number] [address] [place] [address] 08 May, 2016 12 weeks gestation of pregna ncy Z3A.12 ; Unspecified abdominal pain R10.9 and Other specified related conditions, unspecified trimester O26.899 [place] [address] [id number] [address] [place] [address] Apr, [place] [address] [facility] [id number] [address] [place] [address] Apr, [place] [address] [facility] [id number] [address] [place] [address] February, [place] [address] [id number] [address] [place] [address] February, Bipolar 1 disorder, manic, m ild F31.11 and Adjustment disorder with depressed mood F43.21 [place] [address] [facility] [id number] [address] [place] [address] Dec, Major depressive disorder, s ken episode, moderate F32.1 ; Adjustment disorder with depressed mood F43.21 and Bipolar 1 disorder, manic, mild F31.11 [place] [address] [id number] [address] [place] [address] Dec, Adjustment disorder with dep ressed mood F43.21 ; Major depressive disorder, single episode, moderate F32.1 and Bipolar 1 disorder, manic, mild F31.11 [place] [address] [id number] [address] [place] [address] Dec, Right hand pain M79.641 [place] [address] [facility] [id number] [address] [place] [address] Dec, Major depressive disorder, s ken episode, moderate F32.1 and Adjustment disorder with depressed mood F43.21 [place] [address] [facility] [id number] [address] [place] [address] Nov, Major depressive disorder, s ken episode, moderate F32.1 [place] [address] [place] [id number] [address] [place] [address] Nov, Adjustment disorder with dep ressed mood F43.21 ; Bipolar 1 disorder, manic, mild F31.11 and Adjustment disorder with anxiety F43.22 [place] [address] [place] [id number] [address] [place] [address] Oct, [place] [address] [place] [id number] [place] [address] Oct, Encounter for counseling reg arding contraception Z30.9 ; Initiation of OCP (BCP) Z30.011 ; Routine screening for STI (sexually transmitted infection) Z11.3 and Dysmenorrhea N94.6 [place] [address] [place] [id number] [address] [place] [address] Sep, Acute upper respiratory infe ction, unspecified J06.9 ; Other viral agents as the cause of diseases classified elsewhere B97.89 and Post-nasal drip R09.82 [place] [address] [place] [id number] [address] [place] [address] Aug, Depressive disorder, not els ewhere classified 311 [place] [address] [place] [id number] [address] [place] [address] Jul, Depression, major, recurrent , moderate F33.1 [place] [address] [place] [id number] [address] [place] [address] Jun, Major depressive disorder, r ecurrent episode, moderate 296.32 [place] [address] [place] [id number] [address] [place] [address] Mar, Major depression, recurrent 296.30 [facility] [address] [id number] [address] [place] [address], [place] [address] 14 Jan, 2015 [facility] [address] [id number] [address] [place] [address], [place] [address] Jan, [facility] [address] [id number] [address] [place] [address], [place] [address] Dec, [facility] [address] [id number] [address] [place] [address], [place] [address] Dec, [facility] [address] [id number] [address] [place] [address], [place] [address] Nov, [facility] [address] [id number] [address] [place] [address], [place] [address] Nov, [facility] [address] [id number] [address] [place] [address], [place] [address] Oct, [facility] [address] [id number] [address] [place] [address], [place] [address] Oct, [facility] [address] [id number] [address] [place] [address], [place] [address] Sep, [facility] [address] [id number] [address] [place] [address], [place] [address] Sep, [facility] [address] [id number] [address] [place] [address], [place] [address] Sep, [facility] [address] [id number] [address] [place] [address], [place] [address] Sep, [facility] [address] [id number] [address] [place] [address], [place] [address] Sep, [facility] [address] [id number] [address] [place] [address], [place] [address] Sep, [facility] [address] [id number] [address] [place] [address], [place] [address] Aug, [facility] [address] [id number] [address] [place] [address], [place] [address] Aug, [facility] [address] [id number] [address] [place] [address], [place] [address] Aug, [facility] [address] [id number] [address] [place] [address], [place] [address] Aug, [facility] [address] [id number] [address] [place] [address], [place] [address] 17 Jul, 2014 [facility] [address] [id number] [address] [place] [address], [place] [address] 17 Jul, 2014 [facility] [address] [id number] [address] [place] [address], [place] [address] 16 Jul, 2014 [facility] [address] [id number] [address] [place] [address], [place] [address] 16 Jul, 2014 [facility] [address] [id number] [address] [place] [address], [place] [address] 17 Jun, 2014 [facility] [address] [id number] [address] [place] [address], [place] [address] 17 Jun, 2014 [facility] [address] [id number] [address] [place] [address], [place] [address] 17 Jun, 2014 [facility] [address] [id number] [address] [place] [address], [place] [address] 17 Jun, 2014 [facility] [address] [id number] [address] [place] [address], [place] [address] Apr, [facility] [address] [id number] [address] [place] [address], [place] [address] Apr, [facility] [address] [id number] [address] [place] [address], [place] [address] Mar, [facility] [address] [id number] [address] [place] [address], [place] [address] Mar, [facility] [address] [id number] [address] [place] [address], [place] [address] Mar, [facility] [address] [id number] [address] [place] [address], [place] [address] Mar, [facility] [address] [id number] [address] [place] [address], [place] [address] February, [facility] [address] [id number] [address] [place] [address], [place] [address] February, [facility] [address] [id number] [address] [place] [address], [place] [address] February, [facility] [address] [id number] [address] [place] [address], [place] [address] February, [facility] [address] [id number] [address] [place] [address], [place] [address] February, [facility] [address] [id number] [address] [place] [address], [place] [address] February, [facility] [address] [id number] [address] [place] [address], [place] [address] February, [facility] [address] [id number] [address] [place] [address], [place] [address] Jan, [facility] [address] [id number] [address] [place] [address], [place] [address] 24 Jan, 2014 [facility] [address] [id number] [address] [place] [address], [place] [address] Jan, [facility] [address] [id number] [address] [place] [address], [place] [address] 18 Jan, 2014 [facility] [address] [id number] [address] [place] [address], [place] [address] Jan, [facility] [address] [id number] [address] [place] [address], [place] [address] Jan, [facility] [address] [id number] [address] [place] [address], [place] [address] Jan, [facility] [address] [id number] [address] [place] [address], [place] [address] Jan, [facility] [address] [id number] [address] [place] [address], [place] [address] 14 Oct, 2013 [facility] [address] [id number] [address] [place] [address], [place] [address] 14 Oct, 2013 [facility] [address] [id number] [address] [place] [address], [place] [address] Sep, [facility] [address] [id number] [address] [place] [address], [place] [address] 31 Sep, 2013 [facility] [address] [id number] [address] [place] [address], [place] [address] 11 Jun, 2013 [facility] [address] [id number] [address] [place] [address], [place] [address] 04 Jun, 2013 [facility] [address] [id number] [address] [place] [address], [place] [address] 27 Oct, 2012 [facility] [address] [id number] [address] [place] [address], [place] [address] 08 Sep, 2012 [facility] [address] [id number] [address] [place] [address], [place] [address] 08 Sep, 2012 [facility] [address] [id number] [address] [place] [address], [place] [address] 26 Jun, 2012 [facility] [address] [id number] [address] [place] [address], [place] [address] 25 Jun, 2012 [facility] [address] [id number] [address] [place] [address], [place] [address] 24 Jun, 2012 [facility] [address] [id number] [address] [place] [address], [place] [address] 20 Jun, 2012 [facility] [address] [id number] [address] [place] [address], [place] [address] 20 Jun, 2012 [facility] [address] [id number] [address] [place] [address], [place] [address] 05 Jun, 2012 [facility] [address] [id number] [address] [place] [address] [place] [address] Apr, [facility] [address] [id number] [address] [place] [address], [place] [address] Mar, [facility] [address] [id number] [address] [place] [address], [place] [address] Mar, [facility] [address] [id number] [address] [place] [address], [place] [address] Dec, [facility] [address] [id number] [address] [place] [address], [place] [address] Oct, [facility] [address] [id number] [address] [place] [address], [place] [address] Aug, [facility] [address] [id number] [address] [place] [address], [place] [address] Aug, [facility] [address] [id number] [address] [place] [address], [place] [address] Aug, [facility] [address] [id number] [address] [place] [address], [place] [address] Aug, [facility] [address] [id number] [address] [place] [address], [place] [address] Aug, [facility] [address] [id number] [address] [place] [address], [place] [address] 24 Jul, 2011 [facility] [address] [id number] [address] [place] [address], [place] [address] Jul, [facility] [address] [id number] [address] [place] [address], [place] [address] 15 Jun, 2011 [facility] [address] [id number] [address] [place] [address], [place] [address] 29 Jul, 2010 [facility] [address] [id number] [address] [place] [address], [place] [address] 17 Aug, 2008 [facility] [address] [id number] [address] [place] [address], [place] [address] 14 Aug, 2008 [facility] [address] [facility] [id number] [address] [place] [address] Oct, IMMUNIZATIONS No Known Immunizations SOCIAL HISTORY Never Assessed REASON FOR VISIT concerns... Has had 4 negative tests, one here 2 days ago an d she went to the hospital yesterday and it was also negative. Patient states th at she is having the "symptoms of a woman" Jake Black MA PLAN OF CARE Activity Details Follow Up if not improving with PCP or reg follow up Reason: Pending Test Ultrasound : Pelvic, COMPLET E (REFLEX [id number]-30934) VITAL SIGNS Height 63.75 in 2018-08-12 Weight 121.9 lbs 2018-08-12 Temperature 97.8 degrees Fahrenheit 2018-08-12 Heart Rate 89 bpm 2018-08-12 Respiratory Rate 20 2018-08-12 BMI 21.09 kg/m2 2018-08-12 Blood pressure systolic 120 mmHg 2018-08-12 Blood pressure diastolic 64 mmHg 2018-08-12 MEDICATIONS Medication Instructions Dosage Frequency Start Date End Date Duration S tatus Abilify 2 MG Orally Once a day 1 tablet 24h Active BusPIRone HCl 10 mg Orally Twice a day if needed 1 tablet Mar Active RESULTS No Results PROCEDURES No Known [...]
--- OUTSIDE RECORDS SUMMARY | 2020-01-20 19:59 | XMS REPORT ---
Author Author Candace Tirado Doctor Organization [facility] Address Unknown Phone Unavailable Care Team Providers Care Post Anesthesia Nurse Name Role Phone Migration, Doctor Unavailable Unavailable PROBLEMS Type Condition ICD9-CM Code [id number] Code Onset Dates Condition S tatus SNOMED Code Problem Bipolar 1 disorder, manic, mild F31.11 Active 23440963 Problem Normal in first trimester Z34.91 Active 08910921 Problem Normal in second trimester Z34.92 Active 55692776 Problem Missed period N92.6 Active 787555 00 Problem Adjustment disorder with depressed mood F43.21 Active 181999197 Problem Gender dysphoria F64.9 Active 934 09906 Problem Adjustment disorder with anxiety F43.22 Active 34301321 Problem Mood disorder F39 Active 954480 05 Problem Anxiety F41.9 Active 61642412 Problem Seasonal allergies J30.2 Active 4 [id number] ALLERGIES No Information ENCOUNTERS Encounter Location Date Diagnosis [facility] [address] [facility] [id number] [address] [place] [id number] 12 Nov, 2018 Mood disorder F39 and Gender dysphoria F64.9 [facility] [address] [facility] [id number] [address] [place] [phone] Jul, Missed period N92.6 [facility] [address] [facility] [id number] [address] [place] [id number] Jul, Encounter for test , result unknown Z32.00 [facility] [address] [facility] [id number] [address] [place] [id number] Jul, Hand pain, right M79.641 [facility] [address] [facility] [id number] [address] [place] [phone] May, Allergic rhinitis, unspecifi ed seasonality, unspecified trigger J30.9 [facility] [address] [facility] [id number] [address] [place] [phone] May, [facility] [address] [facility] [id number] [address] [place] [phone] Apr, Mood disorder F39 [place] [address] [facility] [id number] [address] [place] [phone] Apr, Syncope, unspecified syncope type R55 and Dizziness R42 [place] [address] [place] [id number] [address] [place] [id number] Mar, Adjustment disorder with dep ressed mood F43.21 and Anxiety F41.9 [facility] [place] [address] [facility] [id number] [place] [id number] February, Seasonal allergies J30.2 [place] [address] [place] [id number] [address] [place] [phone] February, [facility] [address] [place] [id number] [place] [phone] Dec, Seasonal allergic rhinitis, unspecified trigger J30.2 and Sore throat J02.9 [place] [address] [place] [id number] [address] [place] [phone] Oct, Mood disorder F39 [place] [address] [place] [id number] [address] [place] [phone] Oct, Mood disorder F39 [place] [address] [place] [id number] [address] [place] [phone] Sep, Adjustment disorder with dep ressed mood F43.21 ; Screening cholesterol level Z13.220 and Screening for diabetes mellitus Z13.1 [place] [address] [facility] [id number] [address] [place] [id number] Sep, Adjustment disorder with anx iety F43.22 and Adjustment disorder with depressed mood F43.21 [facility] [address] [facility] [id number] [address] [place] [id number] Aug, Pharyngitis due to other org anism J02.8 [facility] [address] [facility] [id number] [address] [place] [id number] 10 Aug, 2017 Sore throat J02.9 and Acute nasopharyngitis (common cold) J00 [facility] [address] [facility] [id number] [address] [place] [id number] 19 Mar, 2017 Acute nasopharyngitis J00 [facility] [address] [facility] [id number] [address] [place] [id number] 07 Mar, 2017 Adjustment disorder with anx iety F43.22 ; Adjustment disorder with depressed mood F43.21 and Bipolar 1 disorder, manic, mild F31.11 [facility] [address] [facility] [id number] [address] [place] [id number] Mar, [facility] [address] [facility] [id number] [address] [place] [id number] 08 Nov, 2016 39 weeks gestation of pregna ncy Z3A.39 [facility] [address] [place] [id number] [address] [place] [phone] Nov, care in third trime ster Z34.93 [facility] [address] [place] [id number] [address] [place] [id number] Oct, Normal in third tr imester Z34.93 [facility] [address] [place] [id number] [address] [place] [phone] Oct, [facility] [address] [facility] [id number] [address] [place] [phone] Oct, Third trimester at less than 36 weeks Z33.1 [facility] [address] [facility] [id number] [address] [place] [phone] Oct, [facility] [address] [place] [id number] [place] [address] [id number] Oct, [facility] [address] [facility] [id number] [address] [place] [id number] Oct, Normal in third tr imester Z34.93 [facility] [address] [facility] [id number] [address] [place] [id number] Sep, Normal in third tr imester Z34.93 [facility] [address] [facility] [id number] [address] [place] [id number] Sep, Third trimester at less than 36 weeks Z33.1 and Encounter for immunization Z23 [facility] [address] [facility] [id number] [address] [place] [address] Aug, Adjustment disorder with anx iety F43.22 and Adjustment disorder with depressed mood F43.21 [place] [address] [facility] [id number] [address] [place] [id number] Aug, Abnormal glucose tolerance t est in O99.810 [facility] [address] [facility] [id number] [address] [place] [phone] Aug, [facility] [address] [facility] [id number] [address] [place] [phone] Aug, [facility]92 [facility] [address] [facility] [id number] [address] [place] [id number] Aug, Acute upper respiratory infe ction, unspecified J06.9 and Other viral agents as the cause of diseases classified elsewhere B97.89 [facility] [address] [facility] [id number] [address] [place] [phone] Jul, Adjustment disorder with dep ressed mood F43.21 and Bipolar 1 disorder, manic, mild F31.11 [facility] [address] [facility] [id number] [address] [place] [phone] Jul, Bipolar 1 disorder, manic, m ild F31.11 ; Adjustment disorder with anxiety F43.22 and Adjustment disorder with depressed mood F43.21 [facility] [address] [facility] [id number] [address] [place] [id number] Jul, Normal in second t rimester Z34.92 [facility] [id number] [place] [phone] 11 Jul, 2016 Contact dermatitis, unspecif ied contact dermatitis type, unspecified trigger L25.9 [facility] [address] [place] [id number] 11 Jul, 2016 Adjustment disorder with dep ressed mood F43.21 ; Adjustment disorder with anxiety F43.22 and Bipolar 1 disorder, manic, mild F31.11 [place] [address] [address] 04 Jul, 2016 Adjustment disorder with dep ressed mood F43.21 and Bipolar 1 disorder, manic, mild F31.11 [place] [address] [address] 26 Jun, 2016 Adjustment disorder with dep ressed mood F43.21 and Bipolar 1 disorder, manic, mild F31.11 [place] [address] [address] Jun, Adjustment disorder with dep ressed mood F43.21 ; Bipolar 1 disorder, manic, mild F31.11 and Anxiety, generalized F41.1 [place] [address] [address] Jun, Normal in second t rimester Z34.92 ; 18 weeks gestation of Z3A.18 and Encounter for immunization Z23 [place] [address] [place] [id number] [address] [place] [address] 07 Jun, 2016 Normal in first tr imester Z34.91 [place] [address] [place] [phone] May, care in second trim carlos Z34.92 [place] [address] [place] [id number] [address] [place] [phone] May, [place] [address] [place] [id number] [address] [place] [phone] May, [place] [address] [place] [id number] [address] [place] [id number] 15 May, 2016 Major depressive disorder, r ecurrent, moderate F33.1 [place] [address] [place] [id number] [address] [place] [id number] 10 May, 2016 Normal in first tr imester Z34.91 ; Pap smear for cervical cancer screening Z12.4 ; Screen for STD (sexually transmitted disease) Z11.3 and 12 weeks gestation of Z3A.12 [place] [address] [place] [id number] [address] [place] [id number] 08 May, 2016 12 weeks gestation of pregna ncy Z3A.12 ; Unspecified abdominal pain R10.9 and Other specified related conditions, unspecified trimester O26.899 [place] [address] [place] [id number] [address] [place] [id number] Apr, [place] [address] [place] [id number] [address] [place] [phone] Apr, [place] [address] [place] [id number] [address] [place] [phone] February, [place] [address] [address] February, Bipolar 1 disorder, manic, m ild F31.11 and Adjustment disorder with depressed mood F43.21 [place] [address] [place] [id number] [address] [place] [id number] Dec, Major depressive disorder, s ken episode, moderate F32.1 ; Adjustment disorder with depressed mood F43.21 and Bipolar 1 disorder, manic, mild F31.11 [place] [address] [place] [id number] [address] [place] [id number] Dec, Adjustment disorder with dep ressed mood F43.21 ; Major depressive disorder, single episode, moderate F32.1 and Bipolar 1 disorder, manic, mild F31.11 [place] [address] [place] [id number] [address] [place] [address] Dec, Right hand pain M79.641 [place] [address] [place] [address] Dec, Major depressive disorder, s ken episode, moderate F32.1 and Adjustment disorder with depressed mood F43.21 [place] [address] [place] [id number] [address] [place] [phone] Nov, Major depressive disorder, s ken episode, moderate F32.1 [place] [address] [place] [id number] [address] [place] [id number] Nov, Adjustment disorder with dep ressed mood F43.21 ; Bipolar 1 disorder, manic, mild F31.11 and Adjustment disorder with anxiety F43.22 [place] [address] [address] Oct, [place] [address] [address] Oct, Encounter for counseling reg arding contraception Z30.9 ; Initiation of OCP (BCP) Z30.011 ; Routine screening for STI (sexually transmitted infection) Z11.3 and Dysmenorrhea N94.6 [place] [address] [place] [id number] [address] [place] [phone] Sep, Acute upper respiratory infe ction, unspecified J06.9 ; Other viral agents as the cause of diseases classified elsewhere B97.89 and Post-nasal drip R09.82 [place] [address] [place] [id number] [address] [place] [phone] Aug, Depressive disorder, not els ewhere classified 311 [place] [address] [address] Jul, Depression, major, recurrent , moderate F33.1 [place] [address] [place] [id number] [address] [place] [address] Jun, Major depressive disorder, r ecurrent episode, moderate 296.32 [facility] [address] [id number] [address] [place] [phone] Mar, Major depression, recurrent 296.30 [facility] [address] [id number] [address] [place] [address], [place] [id number] 14 Jan, 2015 [facility] [address] [id number] [address] [place] [phone] Jan, [facility] [address] [id number] [address] [place] [phone] Dec, [facility] [address] [id number] [address] [place] [address], [place] [address] Dec, [facility] [address] [id number] [address] [place] [address], [place] [address] Nov, [facility] [address] [id number] [address] [place] [phone] Nov, [facility] [address] [id number] [address] [place] [phone] Oct, [facility] [address] [id number] [address] [place] [phone] Oct, [facility] [address] [id number] [address] [place] [id number] Sep, [facility] [address] [id number] [address] [place] [id number] Sep, [facility] [address] [id number] [address] [place] [phone] Sep, [facility] [address] [id number] [address] [place] [phone] Sep, [facility] [address] [id number] [address] [place] [phone] Sep, [facility] [address] [id number] [address] [place] [phone] Sep, [facility] [address] [id number] [address] [place] [id number] 10 Aug, 2014 [facility] [address] [id number] [address] [place] [address], [place] [address] 10 Aug, 2014 [facility] [address] [id number] [address] [place] [address], [place] [address] Aug, [facility] [address] [id number] [address] [place] [address], [place] [address] Aug, [facility] [address] [id number] [address] [place] [address], [place] [address] 17 Jul, 2014 [facility] [address] [id number] [address] [place] [address], [place] [address] 17 Jul, 2014 [facility] [address] [id number] [address] [place] [address], [place] [address] 16 Jul, 2014 [facility] [address] [id number] [address] [place] [address], [place] [address] 16 Jul, 2014 [facility] [address] [id number] [address] [place] [address], [place] [address] 17 Jun, 2014 [facility] [address] [id number] [address] [place] [address], [place] [address] 17 Jun, 2014 [facility] [address] [id number] [address] [place] [address], [place] [address] 17 Jun, 2014 [facility] [address] [id number] [address] [place] [address], [place] [address] 17 Jun, 2014 [facility] [address] [id number] [address] [place] [address], [place] [address] Apr, [facility] [address] [id number] [address] [place] [address], [place] [address] Apr, [facility] [address] [id number] [address] [place] [address], [place] [address] Mar, [facility] [address] [id number] [address] [place] [address], [place] [address] Mar, [facility] [address] [id number] [facility] [place] [address] Mar, [facility] [address] [id number] [address] [place] [address], [place] [address] Mar, [facility] [address] [id number] [address] [place] [address], [place] [address] February, [facility] [address] [id number] [address] [place] [address], [place] [address] February, [facility] [address] [id number] [address] [place] [address], [place] [address] February, [facility] [address] [id number] [address] [place] [address], [place] [address] February, [facility] [address] [id number] [address] [place] [address], [place] [address] February, [facility] [address] [id number] [address] [place] [address], [place] [address] February, [facility] [address] [id number] [address] [place] [address], [place] [address] February, [facility] [address] [id number] [address] [place] [address], [place] [address] Jan, [facility] [address] [id number] [address] [place] [address], [place] [address] 24 Jan, 2014 [facility] [address] [id number] [address] [place] [address], [place] [id number] 18 Jan, 2014 [facility] [address] [id number] [address] [place] [address], [place] [address] 18 Jan, 2014 [facility] [address] [id number] [address] [place] [address], [place] [address] Jan, [facility] [address] [id number] [address] [place] [address], [place] [address] Jan, [facility] [address] [id number] [address] [place] [address], [place] [address] Jan, [facility] [address] [id number] [address] [place] [address], [place] [address] Jan, [facility] [address] [id number] [address] [place] [address], [place] [address] 14 Oct, 2013 [facility] [address] [id number] [address] [place] [address], [place] [address] 14 Oct, 2013 [facility] [address] [id number] [address] [place] [address], [place] [address] Sep, [facility] [address] [id number] [address] [place] [address], [place] [address] 31 Sep, 2013 [facility] [address] [id number] [address] [place] [address], [place] [address] 11 Jun, 2013 [facility] [address] [id number] [address] [place] [address], [place] [address] 04 Jun, 2013 [facility] [address] [id number] [address] [place] [address], [place] [address] 27 Oct, 2012 [facility] [address] [id number] [address] [place] [address], [place] [address] Sep, [facility] [address] [id number] [address] [place] [address], [place] [address] 08 Sep, 2012 [facility] [address] [id number] [address] [place] [address], [place] [id number] 26 Jun, 2012 [facility] [address] [id number] [address] [place] [address], [place] [id number] 25 Jun, 2012 [facility] [address] [id number] [address] [place] [address], [place] [id number] 24 Jun, 2012 [facility] [address] [id number] [address] [place] [address], [place] [id number] 20 Jun, 2012 [facility] [address] [id number] [address] [place] [address], [place] [id number] 20 Jun, 2012 [facility] [address] [id number] [address] [place] [address], [place] [id number] 05 Jun, 2012 [facility] [address] [id number] [address] [place] [address], [place] [id number] Apr, [facility] [address] [id number] [address] [place] [address], [place] [id number] Mar, [facility] [address] [id number] [address] [place] [address], [place] [id number] Mar, [facility] [address] [id number] [address] [place] [address], [place] [id number] Dec, [facility] [address] [id number] [address] [place] [address], [place] [id number] Oct, [facility] [address] [id number] [address] [place] [address], [place] [id number] Aug, [facility] [address] [id number] [address] [place] [address], [place] [id number] Aug, [facility] [address] [id number] [address] [place] [address], [place] [id number] Aug, [facility] [address] [id number] [address] [place] [address], [place] [id number] Aug, [facility] [address] [id number] [address] [place] [address], [place] [id number] Aug, [facility] [address] [id number] [address] [place] [address], [place] [id number] 24 Jul, 2011 [facility] [address] [id number] [address] [place] [address], [place] [id number] Jul, [facility] [address] [id number] [address] [place] [address], [place] [id number] 15 Jun, 2011 [facility] [address] [id number] [address] [place] [address], [place] [id number] 29 Jul, 2010 [facility] [address] [id number] [address] [place] [address], [place] [id number] 17 Aug, 2008 [facility] [address] [facility] [id number] [address] [place] [id number] Aug, [facility] [address] [facility] [id number] [address] [place] [id number] Oct, IMMUNIZATIONS No Known Immunizations SOCIAL HISTORY Never Assessed REASON FOR VISIT EMR-[facility] PLAN OF CARE VITAL SIGNS MEDICATIONS No [...]
--- OUTSIDE RECORDS SUMMARY | 2020-01-20 20:04 | XMS REPORT | Continuity of Care Document ---
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 F41. 9 ANXIETY DISORDER, UNSPECIFIED 12/20/2017 CAROLYN DOMINGUEZ MD Ot J45.909 UNSPECIFIED ASTHMA, UNCOMPLICATED 12/20/2017 CAROLYN DOMINGUEZ MD Ot K21. 9 GASTRO-ESOPHAGEAL REFLUX DISEASE WITHOUT 12/20/2017 CAROLYN DOMINGUEZ MD Ot N39. 0 URINARY TRACT INFECTION, SITE NOT SPECIF 12/20/2017 ANGELICA LINCOLN, CAROLYN García Ot R11. 2 NAUSEA WITH VOMITING, UNSPECIFIED 12/20/2017 ANGELICA LINCOLN, CAROLYN García Ot Z87.891 PERSONAL HISTORY OF NICOTINE DEPENDENCE 01/05/2018 EMILEE QUIROZ MD Ot F17.210 NICOTINE DEPENDENCE, CIGARETTES, UNCOMPL 01/05/2018 EMILEE QUIROZ MD Ot F41.9 ANXIETY DISORDER, UNSPECIFIED 01/05/2018 RICHIE LINCOLN, EMILEE Cortes Ot J06.9 ACUTE UPPER RESPIRATORY INFECTION, UNSPE 01/05/2018 EMILEE QUIROZ MD Ot J45.909 UNSPECIFIED ASTHMA, UNCOMPLICATED 01/05/2018 EMILEE QUIROZ MD Ot K21.9 GASTRO-ESOPHAGEAL REFLUX DISEASE WITHOUT 01/05/2018 RICHIE LINCOLN, EMILEE Cortes Ot R05 COUGH 01/05/2018 EMILEE QUIROZ MD Ot Z87.440 PERSONAL HISTORY OF URINARY (TRACT) INFE 01/07/2018 EMILEE QUIROZ MD Ot F17.210 NICOTINE DEPENDENCE, CIGARETTES, UNCOMPL 01/07/2018 EMILEE QUIROZ MD Ot F41.9 ANXIETY DISORDER, UNSPECIFIED 01/07/2018 RICHIE LINCOLN, EMILEE T Ot J06.9 ACUTE UPPER RESPIRATORY INFECTION, UNSPE 01/07/2018 EMILEE QUIROZ MD T Ot J45.909 UNSPECIFIED ASTHMA, UNCOMPLICATED 01/07/2018 EMILEE QUIROZ MD T Ot K21.9 GASTRO-ESOPHAGEAL REFLUX DISEASE WITHOUT 01/07/2018 RICHIE LINCOLN, EMILEE T Ot R05 COUGH 01/07/2018 RICHIE LINCOLN, EMILEE T Ot Z87.440 PERSONAL HISTORY OF URINARY (TRACT) INFE 03/14/2018 SANJUANA LINCOLN, TATIANA Arevalo Ot 649. 63 UTERINE SIZE DATE DISCREPANCY, ANTEPARTU 03/14/2018 KACEY SCRUGGS DO Ot Z36 ENCOUNTER FOR SCREENING OF MOT 03/14/2018 KACEY SCRUGGS DO Ot Z3A.12 12 WEEKS GESTATION OF 03/14/2018 KACEY SCRUGGS DO Ot Z36 ENCOUNTER FOR SCREENING OF MOT 03/14/2018 KACEY SCRUGGS DO Ot Z3A.15 15 WEEKS GESTATION OF 03/14/2018 SANJUANA LINCOLN, TATIANA Arevalo Ot Z03. 73 ENCOUNTER FOR SUSPECTED ANOMALY RU 03/14/2018 SANJUANA LINCOLN, TATIANA Arevalo Ot O99.810 ABNORMAL GLUCOSE COMPLICATING 03/14/2018 GLO BLOOM 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 Ot F41 .9 ANXIETY DISORDER, UNSPECIFIED 03/14/2018 GLO BLOOM 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 Ot J45.998 OTHER ASTHMA 03/14/2018 GLO BLOOM 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 Ot K21 .9 GASTRO-ESOPHAGEAL REFLUX DISEASE WITHOUT 03/14/2018 GLO BLOOM 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 Ot N39 .0 URINARY TRACT INFECTION, SITE NOT SPECIF 03/14/2018 GLO BLOOM APRN Ot R30 .0 DYSURIA 03/14/2018 GLO BLOOM 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 Ot Z87.891 PERSONAL HISTORY OF NICOTINE DEPENDENCE 03/20/2018 GLO BLOOM 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 Ot F41 .9 ANXIETY DISORDER, UNSPECIFIED 03/20/2018 GLO BLOOM 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 Ot J45.998 OTHER ASTHMA 03/20/2018 GLO BLOOM APRN Ot K21 .9 GASTRO-ESOPHAGEAL REFLUX DISEASE WITHOUT 03/20/2018 GLO BLOOM 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 Ot N39 .0 URINARY TRACT INFECTION, SITE NOT SPECIF 03/20/2018 GLO BLOOM 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 Ot R30 .0 DYSURIA 03/20/2018 GLO BLOOM 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 Ot Z87.891 PERSONAL HISTORY OF NICOTINE DEPENDENCE 04/19/2018 GLO BLOOM 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 Ot F41 .9 ANXIETY DISORDER, UNSPECIFIED 04/19/2018 GLO BLOOM 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 Ot J45.998 OTHER ASTHMA 04/19/2018 GLO BLOOM 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 Ot K21 .9 GASTRO-ESOPHAGEAL REFLUX DISEASE WITHOUT 04/19/2018 GLO BLOOM 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 Ot R11 .0 NAUSEA 04/19/2018 GLO BLOOM 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 Ot R42 DIZZINESS AND GIDDINESS 04/21/2018 GLO BLOOM 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 Ot F41 .9 ANXIETY DISORDER, UNSPECIFIED 04/21/2018 GLO BLOOM 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 Ot J45.998 OTHER ASTHMA 04/21/2018 GLO BLOOM 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 Ot K21 .9 GASTRO-ESOPHAGEAL REFLUX DISEASE WITHOUT 04/21/2018 GLO BLOOM 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 Ot R11 .0 NAUSEA 04/21/2018 GLO BLOOM 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 Ot R42 DIZZINESS AND GIDDINESS 04/21/2018 GLO BLOOM 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 Ot F41 .9 ANXIETY DISORDER, UNSPECIFIED 04/21/2018 GLO BLOOM 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 Ot J45.998 OTHER ASTHMA 04/21/2018 GLO BLOOM 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 Ot K21 .9 GASTRO-ESOPHAGEAL REFLUX DISEASE WITHOUT 04/21/2018 GLO BLOOM 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 Ot R11 .0 NAUSEA 04/21/2018 GLO BLOOM 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 Ot R42 DIZZINESS AND GIDDINESS 04/26/2018 JAMEY ROMAN Ot E16.2 HYPOGLYCEMIA, UNSPECIFIED 04/26/2018 JAMEY ROMAN Ot F41.9 ANXIETY DISORDER, UNSPECIFIED 04/26/2018 JAMEY ROMAN Ot J45.909 UNSPECIFIED ASTHMA, UNCOMPLICATED 04/26/2018 JAMEY ROMAN Ot K21.9 GASTRO-ESOPHAGEAL REFLUX DISEASE WITHOUT 04/26/2018 JAMEY ROMAN Ot R 42 DIZZINESS AND GIDDINESS 04/26/2018 JAMEY ROMAN Ot Z87.891 PERSONAL HISTORY OF NICOTINE DEPENDENCE 04/28/2018 JAMEY ROMAN Ot E16.2 HYPOGLYCEMIA, UNSPECIFIED 04/28/2018 JAMEY ROMAN Ot F41.9 ANXIETY DISORDER, UNSPECIFIED 04/28/2018 JAMEY ROMAN Ot J45.909 UNSPECIFIED ASTHMA, UNCOMPLICATED 04/28/2018 JAMEY ROMAN Ot K21.9 GASTRO-ESOPHAGEAL REFLUX DISEASE WITHOUT 04/28/2018 JAMEY ROMAN Ot R 42 DIZZINESS AND GIDDINESS 04/28/2018 JAMEY ROMAN Ot Z87.891 PERSONAL HISTORY OF NICOTINE DEPENDENCE 05/17/2018 RICHIE LINCOLN, EMILEE T Ot F41.9 ANXIETY DISORDER, UNSPECIFIED 05/17/2018 EMILEE QUIROZ MD T Ot J45.909 UNSPECIFIED ASTHMA, UNCOMPLICATED 05/17/2018 EMILEE QUIROZ MD T Ot K21.9 GASTRO-ESOPHAGEAL REFLUX DISEASE WITHOUT 05/17/2018 BRUEGGEMANN MD, EMILEE T Ot N39.0 URINARY TRACT INFECTION, SITE NOT SPECIF 05/17/2018 EMILEE QUIROZ MD Ot R30.0 DYSURIA 05/17/2018 EMILEE QUIROZ MD Ot Z87.440 PERSONAL HISTORY OF URINARY (TRACT) INFE 05/17/2018 EMILEE QUIROZ MD Ot Z87.891 PERSONAL HISTORY [...] URINARY (TRACT) INFE 05/19/2018 EMILEE QUIROZ MD Ot Z87.891 PERSONAL HISTORY OF NICOTINE DEPENDENCE 05/26/2018 Ot F41.0 VIOLETA C DISORDER [EPISODIC PAROXYSMAL ANXI 05/26/2018 Ot J45.909 UN SPECIFIED ASTHMA, UNCOMPLICATED 05/26/[address] RO-ESOPHAGEAL REFLUX DISEASE WITHOUT 05/26/2018 Ot Z87.440 PE RSONAL HISTORY OF URINARY (TRACT) INFE 06/23/2018 GULSHAN ONEAL Ot E11.9 TYPE 2 DIABETES MELLITUS WITHOUT COMPLIC 06/23/2018 GULSHAN ONEAL Ot F41.0 PANIC DISORDER [EPISODIC PAROXYSMAL ANXI 06/23/2018 GULSHAN ONEAL Ot J00 ACUTE NASOPHARYNGITIS [COMMON COLD] 06/23/2018 GULSHAN ONEAL Ot J02.9 ACUTE PHARYNGITIS, UNSPECIFIED 06/23/2018 GULSHAN ONEAL Ot J45.909 UNSPECIFIED ASTHMA, UNCOMPLICATED 06/23/2018 GULSHAN ONEAL Ot K21.9 GASTRO-ESOPHAGEAL REFLUX DISEASE WITHOUT 06/23/2018 GULSHAN ONEAL Ot Z82.49 FAMILY HX OF ISCHEM HEART DIS AND OTH DI 06/23/2018 GULSHAN ONEAL Ot Z87.440 PERSONAL HISTORY OF URINARY (TRACT) INFE 06/23/2018 BERNCYRIL COONEYIS Ot Z87.891 PERSONAL HISTORY OF NICOTINE DEPENDENCE 06/25/2018 BERNIVET GULSHAN Ot E11.9 TYPE 2 DIABETES MELLITUS WITHOUT COMPLIC 06/25/2018 BERNOT GULSHAN Ot F41.0 PANIC DISORDER [EPISODIC PAROXYSMAL ANXI 06/25/2018 BERNOT, GULSHAN Ot J00 ACUTE NASOPHARYNGITIS [COMMON COLD] 06/25/2018 BERNIVET GULSHAN Ot J02.9 ACUTE PHARYNGITIS, UNSPECIFIED 06/25/2018 BERNIVET GULSHAN Ot J45.909 UNSPECIFIED ASTHMA, UNCOMPLICATED 06/25/2018 BERNIVET GULSHAN Ot K21.9 GASTRO-ESOPHAGEAL REFLUX DISEASE WITHOUT 06/25/2018 BERNIVET GULSHAN Ot Z82.49 FAMILY HX OF ISCHEM HEART DIS AND OTH DI 06/25/2018 CYRIL ONEALIS Ot Z87.440 PERSONAL HISTORY OF URINARY (TRACT) INFE 06/25/2018 CYRIL ONEALIS Ot Z87.891 PERSONAL HISTORY OF NICOTINE DEPENDENCE 08/05/2018 BRENDA KIRBY MD J Ot E11. 9 TYPE 2 DIABETES MELLITUS WITHOUT COMPLIC 08/05/2018 BRENDA KIRBY MD J Ot F17.210 NICOTINE DEPENDENCE, CIGARETTES, UNCOMPL 08/05/2018 BRENDA KIRBY MD J Ot F41. 0 PANIC DISORDER [EPISODIC PAROXYSMAL ANXI 08/05/2018 GIOVANNA KIRBY MDUS J Ot J45.909 UNSPECIFIED ASTHMA, UNCOMPLICATED 08/05/2018 GIOVANNA KIRBY MDUS J Ot K21. 9 GASTRO-ESOPHAGEAL REFLUX DISEASE WITHOUT 08/05/2018 BRENDA KIRBY MD J Ot N39. 0 URINARY TRACT INFECTION, SITE NOT SPECIF 08/05/2018 GIOVANNA KIRBY MDUS J Ot R30. 0 DYSURIA 08/10/2018 BRENDA KIRBY MD J Ot E11. 9 TYPE 2 DIABETES MELLITUS WITHOUT COMPLIC 08/10/2018 BRENDA KIRBY MD J Ot F17.210 NICOTINE DEPENDENCE, CIGARETTES, UNCOMPL 08/10/2018 BRENDA KIRBY MD J Ot F41. 0 PANIC DISORDER [EPISODIC PAROXYSMAL ANXI 08/10/2018 GIOVANNA KIRBY MDUS J Ot J45.909 UNSPECIFIED ASTHMA, UNCOMPLICATED 08/10/2018 BRENDA KIRBY MD Ot K21. 9 GASTRO-ESOPHAGEAL REFLUX DISEASE WITHOUT 08/10/2018 BRENDA KIRBY MD Ot N39. 0 URINARY TRACT INFECTION, SITE NOT SPECIF 08/10/2018 BRENDA KIRBY MD Ot R30. 0 DYSURIA 08/11/2018 OSVALDO VALENTIN MD Ot E11.9 TYPE 2 DIABETES MELLITUS WITHOUT COMPLIC 08/11/2018 OSVALDO VALENTIN MD Ot F41.9 ANXIETY DISORDER, UNSPECIFIED 08/11/2018 OSVALDO VALENTIN MD Ot J45.909 UNSPECIFIED ASTHMA, UNCOMPLICATED 08/11/2018 OSVALDO VALENTIN MD Ot K21.9 GASTRO-ESOPHAGEAL REFLUX DISEASE WITHOUT 08/11/2018 OSVALDO VALENTIN MD Ot N39.0 URINARY TRACT INFECTION, SITE NOT SPECIF 08/11/2018 OSVALDO VALENTIN MD Ot R10.30 LOWER ABDOMINAL PAIN, UNSPECIFIED 08/11/2018 OSVALDO VALENTIN MD Ot Z87.440 PERSONAL HISTORY OF URINARY (TRACT) INFE 08/11/2018 OSVALDO VALENTIN MD Ot Z87.891 PERSONAL HISTORY OF NICOTINE DEPENDENCE 08/13/2018 OSVALDO VALENTIN MD Ot E11.9 TYPE 2 DIABETES MELLITUS WITHOUT COMPLIC 08/13/2018 OSVALDO VALENTIN MD, Ot F41.9 ANXIETY DISORDER, UNSPECIFIED 08/13/2018 OSVALDO VALENTIN MD Ot J45.909 UNSPECIFIED ASTHMA, UNCOMPLICATED 08/13/2018 OSVALDO VALENTIN MD, Ot K21.9 GASTRO-ESOPHAGEAL REFLUX DISEASE WITHOUT 08/13/2018 OSVALDO VALENTIN MD Ot N39.0 URINARY TRACT INFECTION, SITE NOT SPECIF 08/13/2018 OSVALDO VALENITN MD Ot R10.30 LOWER ABDOMINAL PAIN, UNSPECIFIED 08/13/2018 OSVALDO VALENTIN MD Ot Z87.440 PERSONAL HISTORY OF URINARY (TRACT) INFE 08/13/2018 OSVALDO VALENTIN MD Ot Z87.891 PERSONAL HISTORY OF NICOTINE DEPENDENCE 12/23/2018 Ot 296.80 BIP OLAR DISORDER, UNSPECIFIED 12/23/2018 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 APRN Ot V22.1 SUPERVIS OTH NORMAL PREG 12/23/2018 TATIANA WEI MD Ot 649. 63 UTERINE SIZE DATE DISCREPANCY, ANTEPARTU 12/23/2018 SHEBA CAMPOS, KACEY K Ot Z36 ENCOUNTER FOR SCREENING OF MOT 12/23/2018 SCRUGGS DO, KACEY K Ot Z3A.12 12 WEEKS GESTATION OF 12/23/2018 SCRUGGS DO, KACEY K Ot Z36 ENCOUNTER FOR SCREENING OF MOT 12/23/2018 SHEBA CAMPOS, KACEY K Ot Z3A.15 15 WEEKS GESTATION OF 12/23/2018 TATIANA WEI MD, Ot Z03. 73 ENCOUNTER FOR SUSPECTED ANOMALY RU 12/23/2018 TATIANA WEI MD, Ot O99.810 ABNORMAL GLUCOSE COMPLICATING 12/23/2018 Ot 296.80 BIP OLAR DISORDER, UNSPECIFIED 12/23/2018 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 APRN Ot V22.1 SUPERVIS OTH NORMAL PREG 12/23/2018 TATIANA WEI MD, Ot 649. 63 UTERINE SIZE DATE DISCREPANCY, ANTEPARTU 12/23/2018 SHEBA CAMPOS KACEY K Ot Z36 ENCOUNTER FOR SCREENING OF MOT 12/23/2018 SHEBA CAMPOS, KACEY K Ot Z3A.12 12 WEEKS GESTATION OF 12/23/2018 SHEBA CAMPOS KACEY K Ot Z36 ENCOUNTER FOR SCREENING OF MOT 12/23/2018 SHEBA CAMPOS, KACEY K Ot Z3A.15 15 WEEKS GESTATION OF 12/23/2018 TATIANA WEI MD, Ot Z03. 73 ENCOUNTER FOR SUSPECTED ANOMALY RU 12/23/2018 TATIANA WEI MD, Ot O99.810 ABNORMAL GLUCOSE COMPLICATING 05/31/2019 OSVALDO VALENTIN MD Ot E11.9 TYPE 2 DIABETES MELLITUS WITHOUT COMPLIC 05/31/2019 OSVALDO VALENTIN MD Ot F41.0 PANIC DISORDER [EPISODIC PAROXYSMAL ANXI 05/31/2019 OSVALDO VALENTIN MD Ot J01.90 ACUTE SINUSITIS, UNSPECIFIED 05/31/2019 OSVALDO VALENTIN MD, Ot J45.909 UNSPECIFIED ASTHMA, UNCOMPLICATED 05/31/2019 OSVALDO VALENTIN MD, Ot K21.9 GASTRO-ESOPHAGEAL REFLUX DISEASE WITHOUT 05/31/2019 OSVALDO VALENTIN MD Ot R50.9 FEVER, UNSPECIFIED 05/31/2019 OSVALDO VALENTIN MD, Ot Z77.22 CNTCT W AND EXPSR TO ENVIRON TOBACCO SMO 05/31/2019 OSVALDO VALENTIN MD Ot Z87.440 PERSONAL HISTORY OF URINARY (TRACT) INFE 06/03/2019 OSVALDO VALENTIN MD Ot E11.9 TYPE 2 DIABETES MELLITUS WITHOUT COMPLIC 06/03/2019 OSVALDO VALENTIN MD Ot F41.0 PANIC DISORDER [EPISODIC PAROXYSMAL ANXI 06/03/2019 OSVALDO VALENTIN MD Ot J01.90 ACUTE SINUSITIS, UNSPECIFIED 06/03/2019 OSVALDO VALENTIN MD Ot J45.909 UNSPECIFIED ASTHMA, UNCOMPLICATED 06/03/2019 OSVALDO VALENTIN MD Ot K21.9 GASTRO-ESOPHAGEAL REFLUX DISEASE WITHOUT 06/03/2019 OSVALDO VALENTIN MD Ot R50.9 FEVER, UNSPECIFIED 06/03/2019 OSVALDO VALENTIN MD Ot Z77.22 CNTCT W AND EXPSR TO ENVIRON TOBACCO SMO 06/03/2019 OSVALDO VALENTIN MD Ot Z87.440 PERSONAL HISTORY OF URINARY (TRACT) INFE 09/19/2019 GLO BLOOM APRN Ot E11 .9 TYPE 2 DIABETES MELLITUS WITHOUT COMPLIC 09/19/2019 GLO BLOOM APRN Ot F41 .0 PANIC DISORDER [EPISODIC PAROXYSMAL ANXI 09/19/2019 GLO BLOOM APRN Ot J45.909 UNSPECIFIED ASTHMA, UNCOMPLICATED 09/19/2019 GLO BLOOM APRN Ot K21 .9 GASTRO-ESOPHAGEAL REFLUX DISEASE WITHOUT 09/19/2019 GLO BLOOM APRN Ot R07.81 PLEURODYNIA 09/19/2019 GLO BLOOM APRN Ot Y04.2XXA ASSLT BY STRIKE AGNST OR BUMPED INTO BY 09/19/2019 GLO BLOOM APRN Ot Z87.440 PERSONAL HISTORY OF URINARY (TRACT) INFE 09/19/2019 GLO BLOOM APRN Ot Z87.891 PERSONAL HISTORY OF NICOTINE DEPENDENCE 09/25/2019 GLO BLOOM APRN Ot E11 .9 TYPE 2 DIABETES MELLITUS WITHOUT COMPLIC 09/25/2019 GLO BLOOM APRN Ot F41 .0 PANIC DISORDER [EPISODIC PAROXYSMAL ANXI 09/25/2019 GLO BLOOM APRN Ot J45.909 UNSPECIFIED ASTHMA, UNCOMPLICATED 09/25/2019 GLO BLOOM APRN Ot K21 .9 GASTRO-ESOPHAGEAL REFLUX DISEASE WITHOUT 09/25/2019 GLO BLOOM APRN Ot R07.81 PLEURODYNIA 09/25/2019 GLO BLOOM APRN Ot Y04.2XXA ASSLT BY STRIKE AGNST OR BUMPED INTO BY 09/25/2019 GLO BLOOM APRN Ot Z87.440 PERSONAL HISTORY OF URINARY (TRACT) INFE 09/25/2019 GLO BLOOM APRN Ot Z87.891 PERSONAL HISTORY OF NICOTINE DEPENDENCE 12/14/2019 Johnny Cleaning 780.60 FEVER, UNSPECIFIED 12/14/2019 Johnny Cleaning 784.0 HEADACHE 12/14/2019 Johnny Cleaning 786.2 COUGH 12/14/2019 Johnny Cleaning R05 COUGH 12/14/2019 Johnny Cleaning R50.9 FEVER, UNSPECIFIED 12/14/2019 Johnny Cleaning R51 HEADACHE Procedures Code Description [place] [address] US O B - EARLY <14 WEEKS 06/23/2013 48126 URIN E TEST (IN- HOUSE) 06/23/2013 60754 UA W / CULTURE IF INDICATED 06/23/2013 72.71 VACU UM EXT DEL W EPISIOT 01/24/2014 19364 PSYC H DIAGNOSTIC EVALUATION 01/28/2014 70537 PSYT X PT&/FAMILY 45 MINUTES 02/22/2014 80305 PSYC HO TESTING 1 HR W COMP 02/22/2014 72823 PSYT X PT&/FAMILY 30 MINUTES 04/01/2014 12277 PSYT X PT&/FAMILY 45 MINUTES 08/23/2014 68530 PSYT X PT&/FAMILY 45 MINUTES 08/29/2014 54108 PSYT X PT&/FAMILY 45 MINUTES 10/14/2014 43040 PSYT X PT&/FAMILY 45 MINUTES 10/21/2014 [id number] DI VISION OF FEMALE PERINEUM, EXTERNAL AP 11/28/[id number] MCCLURE OF [place], THERAP FROM POC 11/28/2016 [id number] DE LIVERY OF PRODUCTS OF CONCEPTION, EXTE 11/28/2016 Results Test Result Range Urine drug screening test - 06/06/16 21: 20 Urine acetaminophen detection by screening method NEGATIVE NEGATIVE Urine phencyclidine detection by screening method NEGATIVE NEGATIVE Urine benzodiazepines detection by screening method NEGATIVE NEGATIVE Urine cocaine detection NEGATIVE NEGATI VE Urine amphetamines detection by screening method N EGATIVE NEGATIVE Urine methamphetamine detection by screening method NEGATIVE NEGATIVE Urine cannabinoids detection by screening method N EGATIVE NEGATIVE Urine opiates detection by screening method NEGATI VE NEGATIVE Urine barbiturates detection NEGATIVE N EGATIVE Screening urine tricyclic antidepressants detection NEGATIVE NEGATIVE Urine methadone detection by screening method NEGA TIVE NEGATIVE Complete blood count (CBC) with automate d white blood cell (WBC) differential - 06/06/16 21:29 Blood leukocytes automated count (number/volume) 10.9 10*3/uL 4.3-11.0 Blood erythrocytes automated count (number/volume) 4.75 10*6/uL 4.35-5.85 Venous blood hemoglobin measurement (mass/volume) 13.8 g/dL 11.5-16.0 Blood hematocrit (volume fraction) 39 % 35-52 Automated erythrocyte mean corpuscular volume 83 [ foz_us] 80-99 Automated erythrocyte mean corpuscular h emoglobin (mass per erythrocyte) 29 pg 25-34 Automated erythrocyte mean corpuscular h emoglobin concentration measurement (mass/volume) 35 g/dL 32-36 Automated erythrocyte distribution width ratio 13. 3 % 10.0- 14.5 Automated blood platelet count (count/volume) 247 10*3/uL [...] 10*3 1.0-4.0 Blood monocytes automated count (number/volume) 0. 8 10*3 0.0-1.0 Automated eosinophil count 0.3 10*3/uL 0 .0-0.3 Automated blood basophil count (count/volume) 0.0 10*3/uL 0.0-0.1 Complete urinalysis with reflex to cultu re - 06/06/16 21:29 Urine color determination YELLOW NRG Urine clarity determination CLEAR NR G Urine pH measurement by test strip 6.5 5-9 Specific gravity of urine by test strip 1.020 1.016-1.022 Urine protein assay by test strip, semi-quantitative NEGATIVE NEGATIVE Urine glucose detection by automated test strip NE GATIVE NEGATIVE Erythrocytes detection in urine sediment by light micr oscopy NEGATIVE NEGATIVE Urine ketones detection by automated test strip NE GATIVE NEGATIVE Urine nitrite detection by test strip NEGATIVE NEGATIVE Urine total bilirubin detection by test strip NEGA TIVE NEGATIVE Urine urobilinogen measurement by automated test strip (mass/volume) NORMAL NORMAL Urine leukocyte esterase detection by dipstick 2+ NEGATIVE Automated urine sediment erythrocyte cou nt by microscopy (number/high power field) [HPF] NRG Automated urine sediment leukocyte count by microscopy (number/high power field) [HPF] NRG Bacteria detection in urine sediment by light microsco py LARGE NRG Squamous epithelial cells detection in u rine sediment by light microscopy 10-25 NRG Crystals detection in urine sediment by light microsco py NONE NRG Casts detection in urine sediment [...] 5-14 Serum or plasma urea nitrogen measurement (mass/volume ) 9 mg/dL 7-18 Serum or plasma creatinine measurement (mass/volume) 0.68 mg/dL 0.60-1.30 Serum or plasma urea nitrogen/creatinine mass ratio 13 NRG Serum or plasma creatinine measurement w ith calculation of estimated glomerular filtration rate > NRG Serum or plasma glucose measurement (mass/volume) 87 mg/dL 70-105 Serum or plasma calcium measurement (mass/volume) 9.5 mg/dL 8.5-10.1 Serum or plasma total bilirubin measurement (mass/volu me) 0.5 mg/dL 0.1-1.0 Serum or plasma alkaline phosphatase juan david surement (enzymatic activity/volume) 40 U/L 40-136 Serum or plasma aspartate aminotransfera se measurement (enzymatic activity/volume) 11 U/L 5-34 Serum or plasma alanine aminotransferase measurement (enzymatic activity/volume) 10 U/L 0-55 Serum or plasma protein measurement (mass/volume) 7.0 g/dL 6.4-8.2 Serum or plasma albumin measurement (mass/volume) 4.1 g/dL 3.2-4.5 Bacterial urine culture - 06/06/16 21:29 URINE CULTURE RESULTS >100,000/ML NRG Complete urinalysis with reflex to cultu re - 06/12/16 01:02 Urine color determination YELLOW NRG Urine clarity determination VERY CLOUDY NRG Urine pH measurement by test strip 5 5-9 Specific gravity of urine by test strip 1.025 1.016-1.022 Urine protein assay by test strip, semi-quantitative NEGATIVE NEGATIVE Urine glucose detection by automated test strip NE GATIVE NEGATIVE Erythrocytes detection in urine sediment by light micr oscopy 4+ NEGATIVE Urine ketones detection by automated test strip NE GATIVE NEGATIVE Urine nitrite detection by test strip NEGATIVE NEGATIVE Urine total bilirubin detection by test strip NEGA TIVE NEGATIVE Urine urobilinogen measurement by automated test strip (mass/volume) NORMAL NORMAL Urine leukocyte esterase detection by dipstick 2+ NEGATIVE Automated urine sediment erythrocyte cou nt by microscopy (number/high power field) [HPF] NRG Automated urine sediment leukocyte count by microscopy (number/high power field) [HPF] NRG Bacteria detection in urine sediment by light microsco py FEW NRG Squamous epithelial cells detection in u rine sediment by light microscopy 10-25 NRG Crystals detection in urine sediment by light microsco py NONE NRG Casts detection in urine sediment by light microscopy NONE NRG Mucus detection in urine sediment by light microscopy SMALL NRG Complete urinalysis with reflex to culture YES NRG Bacterial urine culture - 06/12/16 01:02 URINE CULTURE RESULTS SUGGEST RECOLLECTION NRG Complete blood count (CBC) with automate d white blood cell (WBC) differential - 06/13/16 00:23 Blood leukocytes automated count (number/volume) 9.4 10*3/uL 4.3-11.0 Blood erythrocytes automated count (number/volume) 4.42 10*6/uL 4.35-5.85 Venous blood hemoglobin measurement (mass/volume) 12.7 g/dL 11.5-16.0 Blood hematocrit (volume fraction) 37 % 35-52 Automated erythrocyte mean corpuscular volume 83 [ foz_us] 80-99 Automated erythrocyte mean corpuscular h emoglobin (mass per erythrocyte) 29 pg 25-34 Automated erythrocyte mean corpuscular h emoglobin concentration measurement (mass/volume) 35 g/dL 32-36 Automated erythrocyte distribution width ratio 13. 5 % 10.0- 14.5 Automated blood platelet count (count/volume) 257 10*3/uL [...] 10*3 1.0-4.0 Blood monocytes automated count (number/volume) 0. 9 10*3 0.0-1.0 Automated eosinophil count 0.2 10*3/uL 0 .0-0.3 Automated blood basophil count (count/volume) 0.0 10*3/uL 0.0-0.1 Whole blood basic metabolic panel - 05/21 03/04 00:23 Serum or plasma sodium measurement (moles/volume) 138 mmol/L 135-145 Serum or plasma potassium measurement (moles/volume) 3.7 mmol/L 3.6-5.0 Serum or plasma chloride measurement (moles/volume) 109 mmol/L 98-107 Carbon dioxide 17 mmol/L 21-32 Serum or plasma anion gap determination (moles/volume) 12 mmol/L 5-14 Serum or plasma urea nitrogen measurement (mass/volume ) 11 mg/dL 7-18 Serum or plasma creatinine measurement (mass/volume) 0.68 mg/dL 0.60-1.30 Serum or plasma urea nitrogen/creatinine mass ratio 16 NRG Serum or plasma creatinine measurement w ith calculation of estimated glomerular filtration rate > NRG Serum or plasma glucose measurement (mass/volume) 83 mg/dL 70-105 Serum or plasma calcium measurement (mass/volume) 9.5 mg/dL 8.5-10.1 Serum or plasma ethanol measurement (mas s/volume) - 06/13/16 00:23 Serum or plasma ethanol measurement (mass/volume) < mg/dL <10 Complete urinalysis with reflex to cultu re - 06/13/16 00:40 Urine color determination YELLOW NRG Urine clarity determination SLIGHTLY CLOUDY NRG Urine pH measurement by test strip 5 5-9 Specific gravity of urine by test strip 1.025 1.016-1.022 Urine protein assay by test strip, semi-quantitative 1+ NEGATIVE Urine glucose detection by automated test strip NE GATIVE NEGATIVE Erythrocytes detection in urine sediment by light micr oscopy 5+ NEGATIVE Urine ketones detection by automated test strip NE GATIVE NEGATIVE Urine nitrite detection by test strip NEGATIVE NEGATIVE Urine total bilirubin detection by test strip NEGA TIVE NEGATIVE Urine urobilinogen measurement by automated test strip (mass/volume) NORMAL NORMAL Urine leukocyte esterase detection by dipstick 3+ NEGATIVE Automated urine sediment erythrocyte cou nt by microscopy (number/high power field) [HPF] NRG Automated urine sediment leukocyte count by microscopy (number/high power field) [HPF] NRG Bacteria detection in urine sediment by light microsco py FEW NRG Squamous epithelial cells detection in u rine sediment by light microscopy 10-25 NRG Crystals detection in urine sediment by light microsco py NONE NRG Casts detection in urine sediment by light microscopy NONE NRG Mucus detection in urine sediment by light microscopy NEGATIVE NRG Complete urinalysis with reflex to culture YES NRG Urine drug screening test - 06/13/16 00: 40 Urine acetaminophen detection by screening method NEGATIVE NEGATIVE Urine phencyclidine detection by screening method NEGATIVE NEGATIVE Urine benzodiazepines detection by screening method NEGATIVE NEGATIVE Urine cocaine detection NEGATIVE NEGATI VE Urine amphetamines detection by screening method N EGATIVE NEGATIVE Urine methamphetamine detection by screening method NEGATIVE NEGATIVE Urine cannabinoids detection by screening method N EGATIVE NEGATIVE Urine opiates detection by screening method NEGATI VE NEGATIVE Urine barbiturates detection NEGATIVE N EGATIVE Screening urine tricyclic antidepressants detection NEGATIVE NEGATIVE Urine methadone detection by screening method NEGA TIVE NEGATIVE Bacterial urine culture - 06/13/16 00:40 Bacterial urine culture [id number] NRG COLONY COUNT <10,000 NRG FTX;REPORTABLE NO FURTHER STUDIES UNLESS REQUESTED NRG URINE CULTURE RESULTS PLUS NRG Complete blood count (CBC) with automate d white blood cell (WBC) differential - 07/01/16 22:37 Blood leukocytes automated count (number/volume) 11.5 10*3/uL 4.3-11.0 Blood erythrocytes automated count (number/volume) 4.38 10*6/uL 4.35-5.85 Venous blood hemoglobin measurement (mass/volume) 12.9 g/dL 11.5-16.0 Blood hematocrit (volume fraction) 37 % 35-52 Automated erythrocyte mean corpuscular volume 84 [ foz_us] 80-99 Automated erythrocyte mean corpuscular h emoglobin (mass per erythrocyte) 30 pg 25-34 Automated erythrocyte mean corpuscular h emoglobin concentration measurement (mass/volume) 35 g/dL 32-36 Automated erythrocyte distribution width ratio 13. 7 % 10.0- 14.5 Automated blood platelet count (count/volume) 259 10*3/uL [...] 10*3 1.0-4.0 Blood monocytes automated count (number/volume) 1. 0 10*3 0.0-1.0 Automated eosinophil count 0.2 10*3/uL 0 .0-0.3 Automated blood basophil count (count/volume) 0.0 10*3/uL 0.0-0.1 Complete urinalysis with reflex to cultu re - 07/01/16 22:37 Urine color determination YELLOW NRG Urine clarity determination VERY CLOUDY NRG Urine pH measurement by test strip 7 5-9 Specific gravity of urine by test strip 1.010 1.016-1.022 Urine protein assay by test strip, semi-quantitative NEGATIVE NEGATIVE Urine glucose detection by automated test strip NE GATIVE NEGATIVE Erythrocytes detection in urine sediment by light micr oscopy 1+ NEGATIVE Urine ketones detection by automated test strip NE GATIVE NEGATIVE Urine nitrite detection by test strip NEGATIVE NEGATIVE Urine total bilirubin detection by test strip NEGA TIVE NEGATIVE Urine urobilinogen measurement by automated test strip (mass/volume) NORMAL NORMAL Urine leukocyte esterase detection by dipstick 3+ NEGATIVE Automated urine sediment erythrocyte cou nt by microscopy (number/high power field) [HPF] NRG Automated urine sediment leukocyte count by microscopy (number/high power field) [HPF] NRG Bacteria detection in urine sediment by light microsco py LARGE NRG Squamous epithelial cells detection in u rine sediment by light microscopy TNTC NRG Crystals detection in urine sediment by light microsco py PRESENT NRG Casts detection in urine sediment by light microscopy NONE NRG Mucus detection in urine sediment by light microscopy NEGATIVE NRG Complete urinalysis with reflex to culture NO NRG Amorphous sediment detection in urine sediment by ligh t microscopy LARGE SHU PHOSPHATE NRG Comprehensive metabolic panel - 07/01/16 22:37 Serum or plasma sodium measurement (moles/volume) 138 mmol/L 135-145 Serum or plasma potassium measurement (moles/volume) 4.0 mmol/L 3.6-5.0 Serum or plasma chloride measurement (moles/volume) 108 mmol/L 98-107 Carbon dioxide 18 mmol/L 21-32 Serum or plasma anion gap determination (moles/volume) 12 mmol/L 5-14 Serum or plasma urea nitrogen measurement (mass/volume ) 8 mg/dL 7-18 Serum or plasma creatinine measurement (mass/volume) 0.67 mg/dL 0.60-1.30 Serum or plasma urea nitrogen/creatinine mass ratio 12 NRG Serum or plasma creatinine measurement w ith calculation of estimated glomerular filtration rate > NRG Serum or plasma glucose measurement (mass/volume) 77 mg/dL 70-105 Serum or plasma calcium measurement (mass/volume) 9.4 mg/dL 8.5-10.1 Serum or plasma total bilirubin measurement (mass/volu me) 0.4 mg/dL 0.1-1.0 Serum or plasma alkaline phosphatase juan david surement (enzymatic activity/volume) 47 U/L 40-136 Serum or plasma aspartate aminotransfera se measurement (enzymatic activity/volume) 13 U/L 5-34 Serum or plasma alanine aminotransferase measurement (enzymatic activity/volume) 16 U/L 0-55 Serum or plasma protein measurement (mass/volume) 7.2 g/dL 6.4-8.2 Serum or plasma albumin measurement (mass/volume) 4.2 g/dL 3.2-4.5 Complete urinalysis with reflex to cultu re - 07/08/16 01:24 Urine color determination YELLOW NRG Urine clarity determination SLIGHTLY CLOUDY NRG Urine pH measurement by test strip 6 5-9 Specific gravity of urine by test strip 1.020 1.016-1.022 Urine protein assay by test strip, semi-quantitative NEGATIVE NEGATIVE Urine glucose detection by automated test strip NE GATIVE NEGATIVE Erythrocytes detection in urine sediment by light micr oscopy NEGATIVE NEGATIVE Urine ketones detection by automated test strip NE GATIVE NEGATIVE Urine nitrite detection by test strip NEGATIVE NEGATIVE Urine total bilirubin detection by test strip NEGA TIVE NEGATIVE Urine urobilinogen measurement by automated test strip (mass/volume) NORMAL NORMAL Urine leukocyte esterase detection by dipstick 1+ NEGATIVE Automated urine sediment erythrocyte cou nt by microscopy (number/high power field) NONE NRG Automated urine sediment leukocyte count by microscopy (number/high power field) [HPF] NRG Bacteria detection in urine sediment by light microsco py MODERATE NRG Squamous epithelial cells detection in u rine sediment by light microscopy 5-10 NRG Crystals detection in urine sediment by light microsco py NONE NRG Casts detection in urine sediment by light microscopy NONE NRG Mucus detection in urine sediment by light microscopy NEGATIVE NRG Complete urinalysis with reflex to culture YES NRG Bacterial urine culture - 07/08/16 01:24 URINE CULTURE RESULTS 10,000/ML - 100,000/ML NRG Complete urinalysis with reflex to cultu re - 07/09/16 10:26 Urine color determination YELLOW NRG Urine clarity determination CLEAR NR G Urine pH measurement by test strip 8 5-9 Specific gravity of urine by test strip 1.015 1.016-1.022 Urine protein assay by test strip, semi-quantitative NEGATIVE NEGATIVE Urine glucose detection by automated test strip NE GATIVE NEGATIVE Erythrocytes detection in urine sediment by light micr oscopy NEGATIVE NEGATIVE Urine ketones detection by automated test strip NE GATIVE NEGATIVE Urine nitrite detection by test strip NEGATIVE NEGATIVE Urine total bilirubin detection by test strip NEGA TIVE NEGATIVE Urine urobilinogen measurement by automated test strip (mass/volume) NORMAL NORMAL Urine leukocyte esterase detection by dipstick 2+ NEGATIVE Automated urine sediment erythrocyte cou nt by microscopy (number/high power field) NONE NRG Automated urine sediment leukocyte count by microscopy (number/high power field) [HPF] NRG Bacteria detection in urine sediment by light microsco py MODERATE NRG Squamous epithelial cells detection in u rine sediment by light microscopy 10-25 NRG Crystals detection in urine sediment by light microsco py PRESENT NRG Casts detection in urine sediment by light microscopy NONE NRG Mucus detection in urine sediment by light microscopy NEGATIVE NRG Complete urinalysis with reflex to culture YES NRG Amorphous sediment detection in urine sediment by ligh t microscopy MOD SHU PHOSPHATE NRG Bacterial urine culture - 07/09/16 10:26 URINE CULTURE RESULTS <10,000/ML NRG Bacterial throat culture - 08/21/16 01:3 5 Bacterial throat culture NBS NRG Capillary blood glucose measurement by g lucometer (mass/volume) - 09/09/16 13:45 Capillary blood glucose measurement by glucometer (mas s/volume) 88 mg/dL 70-110 Complete blood count (CBC) with automate d white blood cell (WBC) differential - 10/21/16 02:51 Blood leukocytes automated count (number/volume) 13.8 10*3/uL 4.3-11.0 Blood erythrocytes automated count (number/volume) 4.05 10*6/uL 4.35-5.85 Venous blood hemoglobin measurement (mass/volume) 11.5 g/dL 11.5-16.0 Blood hematocrit (volume fraction) 34 % 35-52 Automated erythrocyte mean corpuscular volume 84 [ foz_us] 80-99 Automated erythrocyte mean corpuscular h emoglobin (mass per erythrocyte) 28 pg 25-34 Automated erythrocyte mean corpuscular h emoglobin concentration measurement (mass/volume) 34 g/dL 32-36 Automated erythrocyte distribution width ratio 13. 5 % 10.0- 14.5 Automated blood platelet count (count/volume) 219 10*3/uL [...] 10*3 1.0-4.0 Blood monocytes automated count (number/volume) 1. 2 10*3 0.0-1.0 Automated eosinophil count 0.4 10*3/uL 0 .0-0.3 Automated blood basophil count (count/volume) 0.0 10*3/uL 0.0-0.1 Complete urinalysis with reflex to cultu re - 11/04/16 02:10 Urine color determination YELLOW NRG Urine clarity determination SLIGHTLY CLOUDY NRG Urine pH measurement by test strip 7 5-9 Specific gravity of urine by test strip 1.015 1.016-1.022 Urine protein assay by test strip, semi-quantitative 1+ NEGATIVE Urine glucose detection by automated test strip NE GATIVE NEGATIVE Erythrocytes detection in urine sediment by light micr oscopy 3+ NEGATIVE Urine ketones detection by automated test strip NE GATIVE NEGATIVE Urine nitrite detection by test strip NEGATIVE NEGATIVE Urine total bilirubin detection by test strip NEGA TIVE NEGATIVE Urine urobilinogen measurement by automated test strip (mass/volume) 4 mg/dL NORMAL Urine leukocyte esterase detection by dipstick 1+ NEGATIVE Automated urine sediment erythrocyte cou nt by microscopy (number/high power field) RARE NRG Automated urine sediment leukocyte count by microscopy (number/high power field) RARE NRG Bacteria detection in urine sediment by light microsco py FEW NRG Crystals detection in urine sediment by light microsco py PRESENT NRG Casts detection in urine sediment by light microscopy NONE NRG Mucus detection in urine sediment by light microscopy NEGATIVE NRG Complete urinalysis with reflex to culture NO NRG Amorphous sediment detection in urine sediment by ligh t microscopy LARGE SHU URATES NRG Bacterial urine culture - 11/04/16 02:10 Bacterial urine culture [id number] NRG COLONY COUNT >100,000/ML NRG Complete urinalysis with reflex to cultu re - 11/05/16 21:30 Urine color determination YELLOW NRG Urine clarity determination CLEAR NR G Urine pH measurement by test strip 7 5-9 Specific gravity of urine by test strip 1.010 1.016-1.022 Urine protein assay by test strip, semi-quantitative NEGATIVE NEGATIVE Urine glucose detection by automated test strip NE GATIVE NEGATIVE Erythrocytes detection in urine sediment by light micr oscopy 2+ NEGATIVE Urine ketones detection by automated test strip NE GATIVE NEGATIVE Urine nitrite detection by test strip NEGATIVE NEGATIVE Urine total bilirubin detection by test strip NEGA TIVE NEGATIVE Urine urobilinogen measurement by automated test strip (mass/volume) 1 mg/dL NORMAL Urine leukocyte esterase detection by dipstick 3+ NEGATIVE Automated urine sediment erythrocyte cou nt by microscopy (number/high power field) [HPF] NRG Automated urine sediment leukocyte count by microscopy (number/high power field) [HPF] NRG Bacteria detection in urine sediment by light microsco py MODERATE NRG Squamous epithelial cells detection in u rine sediment by light microscopy 5-10 NRG Crystals detection in urine sediment by light microsco py PRESENT NRG Casts detection in urine sediment by light microscopy NONE NRG Mucus detection in urine sediment by light microscopy NEGATIVE NRG Complete urinalysis with reflex to culture YES NRG Calcium oxalate crystals detection in ur ine sediment by light microscopy FEW NRG Bacterial urine culture - 11/05/16 21:30 Bacterial urine culture [id number] NRG COLONY COUNT <10,000 NRG URINE CULTURE RESULTS PLUS NRG Complete blood count (CBC) with automate d white blood cell (WBC) differential - 11/28/16 06:15 Blood leukocytes automated count (number/volume) 15.6 10*3/uL 4.3-11.0 Blood erythrocytes automated count (number/volume) 4.07 10*6/uL 4.35-5.85 Venous blood hemoglobin measurement (mass/volume) 10.8 g/dL 11.5-16.0 Blood hematocrit (volume fraction) 33 % 35-52 Automated erythrocyte mean corpuscular volume 81 [ foz_us] 80-99 Automated erythrocyte mean corpuscular h emoglobin (mass per erythrocyte) 27 pg 25-34 Automated erythrocyte mean corpuscular h emoglobin concentration measurement (mass/volume) 33 g/dL 32-36 Automated erythrocyte distribution width ratio 14. 0 % 10.0- 14.5 Automated blood platelet count (count/volume) 271 10*3/uL [...] 10*3 1.0-4.0 Blood monocytes automated count (number/volume) 1. 2 10*3 0.0-1.0 Automated eosinophil count 0.3 10*3/uL 0 .0-0.3 Automated blood basophil count (count/volume) 0.1 10*3/uL 0.0-0.1 Blood manual differential performed dete ction - 11/28/16 06:15 Blood monocytes/100 leukocytes 1 % NRG Manual blood segmented neutrophils/100 leukocytes 64 % NRG Blood band neutrophils/100 leukocytes 6 % NRG Manual blood lymphocytes/100 leukocytes 26 % NRG Manual eosinophils/100 leukocytes in nose 2 % NRG Manual blood basophils/100 leukocytes 1 % NRG Blood microcytes detection by light microscopy SLI GHT NRG Blood type T Indirect antibody screen pa lorelei - 11/28/16 06:15 ABO+Rh group AP NRG Transfusion band number [id number] NRG Blood group antibody screen NEGATIVE NR G Complete blood count (CBC) with automate d white blood cell (WBC) differential - 11/29/16 06:32 Blood leukocytes automated count (number/volume) 17.3 10*3/uL 4.3-11.0 Blood erythrocytes automated count (number/volume) 3.79 10*6/uL 4.35-5.85 Venous blood hemoglobin measurement (mass/volume) 10.1 g/dL 11.5-16.0 Blood hematocrit (volume fraction) 31 % 35-52 Automated erythrocyte mean corpuscular volume 82 [ foz_us] 80-99 Automated erythrocyte mean corpuscular h emoglobin (mass per erythrocyte) 27 pg 25-34 Automated erythrocyte mean corpuscular h emoglobin concentration measurement (mass/volume) 33 g/dL 32-36 Automated erythrocyte distribution width ratio 14. 0 % 10.0- 14.5 Automated blood platelet count (count/volume) 256 10*3/uL [...] 10*3 1.0-4.0 Blood monocytes automated count (number/volume) 1. 7 10*3 0.0-1.0 Automated eosinophil count 0.2 10*3/uL 0 .0-0.3 Automated blood basophil count (count/volume) 0.0 10*3/uL 0.0-0.1 Complete blood count (CBC) with automate d white blood cell (WBC) differential - 04/03/17 18:29 Blood leukocytes automated count (number/volume) 7.3 10*3/uL 4.3-11.0 Blood erythrocytes automated count (number/volume) 4.60 10*6/uL 4.35-5.85 Venous blood hemoglobin measurement (mass/volume) 12.0 g/dL 11.5-16.0 Blood hematocrit (volume fraction) 37 % 35-52 Automated erythrocyte mean corpuscular volume 80 [ foz_us] 80-99 Automated erythrocyte mean corpuscular h emoglobin (mass per erythrocyte) 26 pg 25-34 Automated erythrocyte mean corpuscular h emoglobin concentration measurement (mass/volume) 32 g/dL 32-36 Automated erythrocyte distribution width ratio 14. 1 % 10.0- 14.5 Automated blood platelet count (count/volume) 293 10*3/uL [...] 10*3 1.0-4.0 Blood monocytes automated count (number/volume) 0. 5 10*3 0.0-1.0 Automated eosinophil count 0.3 10*3/uL 0 .0-0.3 Automated blood basophil count (count/volume) 0.0 10*3/uL 0.0-0.1 Comprehensive metabolic panel - 04/03/17 18:29 Serum or plasma sodium measurement (moles/volume) 143 mmol/L 135-145 Serum or plasma potassium measurement (moles/volume) 3.7 mmol/L 3.6-5.0 Serum or plasma chloride measurement (moles/volume) 111 mmol/L 98-107 Carbon dioxide 22 mmol/L 21-32 Serum or plasma anion gap determination (moles/volume) 10 mmol/L 5-14 Serum or plasma urea nitrogen measurement (mass/volume ) 10 mg/dL 7-18 Serum or plasma creatinine measurement (mass/volume) 0.77 mg/dL 0.60-1.30 Serum or plasma urea nitrogen/creatinine mass ratio 13 0-20 Serum or plasma creatinine measurement w ith calculation of estimated glomerular filtration rate > NRG Serum or plasma glucose measurement (mass/volume) 98 mg/dL 70-105 Serum or plasma calcium measurement (mass/volume) 9.0 mg/dL 8.5-10.1 Serum or plasma total bilirubin measurement (mass/volu me) 0.4 mg/dL 0.1-1.0 Serum or plasma alkaline phosphatase juan david surement (enzymatic activity/volume) 47 U/L 40-136 Serum or plasma aspartate aminotransfera se measurement (enzymatic activity/volume) 13 U/L 5-34 Serum or plasma alanine aminotransferase measurement (enzymatic activity/volume) 20 U/L 0-55 Serum or plasma protein measurement (mass/volume) 5.8 g/dL 6.4-8.2 Serum or plasma albumin measurement (mass/volume) 4.2 g/dL 3.2-4.5 Urine beta human chorionic gonadotropin (hCG) measurement - 04/03/17 18:29 Urine beta human chorionic gonadotropin (hCG) measurem ent NEGATIVE NEGATIVE Complete urinalysis with reflex to cultu re - 04/03/17 18:29 Urine color determination YELLOW NRG Urine clarity determination SLIGHTLY CLOUDY NRG Urine pH measurement by test strip 6 5-9 Specific gravity of urine by test strip 1.025 1.016-1.022 Urine protein assay by test strip, semi-quantitative 1+ NEGATIVE Urine glucose detection by automated test strip NE GATIVE NEGATIVE Erythrocytes detection in urine sediment by light micr oscopy 5+ NEGATIVE Urine ketones detection by automated test strip NE GATIVE NEGATIVE Urine nitrite detection by test strip NEGATIVE NEGATIVE Urine total bilirubin detection by test strip NEGA TIVE NEGATIVE Urine urobilinogen measurement by automated test strip (mass/volume) NORMAL NORMAL Urine leukocyte esterase detection by dipstick 2+ NEGATIVE Automated urine sediment erythrocyte cou nt by microscopy (number/high power field) [HPF] NRG Automated urine sediment leukocyte count by microscopy (number/high power field) [HPF] NRG Bacteria detection in urine sediment by light microsco py FEW NRG Squamous epithelial cells detection in u rine sediment by light microscopy 10-25 NRG Crystals detection in urine sediment by light microsco py PRESENT NRG Casts detection in urine sediment by light microscopy NONE NRG Mucus detection in urine sediment by light microscopy SMALL NRG Complete urinalysis with reflex to culture YES NRG Calcium oxalate crystals detection in ur ine sediment by light microscopy FEW NRG Bacterial urine culture - 04/03/17 18:29 Bacterial urine culture [id number] NRG COLONY COUNT >100,000/ML NRG FTX;REPORTABLE SEE COMMENT NRG URINE CULTURE RESULTS PLUS NRG Complete urinalysis with reflex to cultu re - 05/01/17 14:13 Urine color determination YELLOW NRG Urine clarity determination CLEAR NR G Urine pH measurement by test strip 8 5-9 Specific gravity of urine by test strip 1.010 1.016-1.022 Urine protein assay by test strip, semi-quantitative 1+ NEGATIVE Urine glucose detection by automated test strip NE GATIVE NEGATIVE Erythrocytes detection in urine sediment by light micr oscopy NEGATIVE NEGATIVE Urine ketones detection by automated test strip NE GATIVE NEGATIVE Urine nitrite detection by test strip NEGATIVE NEGATIVE Urine total bilirubin detection by test strip NEGA TIVE NEGATIVE Urine urobilinogen measurement by automated test strip (mass/volume) NORMAL NORMAL Urine leukocyte esterase detection by dipstick 1+ NEGATIVE Automated urine sediment erythrocyte cou nt by microscopy (number/high power field) [HPF] NRG Automated urine sediment leukocyte count by microscopy (number/high power field) [HPF] NRG Bacteria detection in urine sediment by light microsco py TRACE NRG Squamous epithelial cells detection in u rine sediment by light microscopy 2-5 NRG Crystals detection in urine sediment by light microsco py NONE NRG Casts detection in urine sediment by light microscopy NONE NRG Mucus detection in urine sediment by light microscopy NEGATIVE NRG Complete urinalysis with reflex to culture NO NRG Complete blood count (CBC) with automate d white blood cell (WBC) differential - 05/14/17 21:53 Blood leukocytes automated count (number/volume) 6.4 10*3/uL 4.3-11.0 Blood erythrocytes automated count (number/volume) 4.64 10*6/uL 4.35-5.85 Venous blood hemoglobin measurement (mass/volume) 12.2 g/dL 11.5-16.0 Blood hematocrit (volume fraction) 37 % 35-52 Automated erythrocyte mean corpuscular volume 79 [ foz_us] 80-99 Automated erythrocyte mean corpuscular h emoglobin (mass per erythrocyte) 26 pg 25-34 Automated erythrocyte mean corpuscular h emoglobin concentration measurement (mass/volume) 33 g/dL 32-36 Automated erythrocyte distribution width ratio 15. 9 % 10.0- 14.5 Automated blood platelet count (count/volume) 273 10*3/uL [...] 10*3 1.0-4.0 Blood monocytes automated count (number/volume) 0. 8 10*3 0.0-1.0 Automated eosinophil count 0.1 10*3/uL 0 .0-0.3 Automated blood basophil count (count/volume) 0.0 10*3/uL 0.0-0.1 Serum heterophile antibody titer - 05/14 21:53 Serum heterophile antibody titer NEGATIVE NEGATIVE Streptococcus pyogenes antigen detection - 05/14/17 21:53 Streptococcus pyogenes antigen detection NEGATIVE NEGATIVE Bacterial throat culture - 05/14/17 21:5 3 Bacterial throat culture NBS NRG Complete urinalysis with reflex to cultu re - 09/26/17 17:35 Urine color determination RED NRG Urine clarity determination BLOODY NR G Urine pH measurement by test strip 5 5-9 Specific gravity of urine by test strip 1.020 1.016-1.022 Urine protein assay by test strip, semi-quantitative 3+ NEGATIVE Urine glucose detection by automated test strip NE GATIVE NEGATIVE Erythrocytes detection in urine sediment by light micr oscopy 5+ NEGATIVE Urine ketones detection by automated test strip 1+ NEGATIVE Urine nitrite detection by test strip NEGATIVE NEGATIVE Urine total bilirubin detection by test strip NEGA TIVE NEGATIVE Urine urobilinogen measurement by automated test strip (mass/volume) NORMAL NORMAL Urine leukocyte esterase detection by dipstick 3+ NEGATIVE Automated urine sediment erythrocyte cou nt by microscopy (number/high power field) TNTC NRG Automated urine sediment leukocyte count by microscopy (number/high power field) [HPF] NRG Bacteria detection in urine sediment by light microsco py MODERATE NRG Crystals detection in urine sediment by light microsco py NONE NRG Casts detection in urine sediment by light microscopy NONE NRG Mucus detection in urine sediment by light microscopy NEGATIVE NRG Complete urinalysis with reflex to culture YES NRG Bacterial urine culture - 09/26/17 17:35 Bacterial urine culture [id number] NRG COLONY COUNT >100,000/ML NRG FTX;REPORTABLE COAGULASE NEGATIVE STAPHYLOCOCCUS NRG FREE TEXT ENTRY 2 SEE COMMENT NRG THYROID ANALYZER - 10/16/17 16:57 TSH 0.98 mIU/L NRG A1C - 10/16/17 16:57 HEMOGLOBIN A1c 4.9 % of total Hgb <5.7 Complete urinalysis with reflex to cultu re - 12/07/17 19:10 Urine color determination YELLOW NRG Urine clarity determination SLIGHTLY CLOUDY NRG Urine pH measurement by test strip 7 5-9 Specific gravity of urine by test strip 1.015 1.016-1.022 Urine protein assay by test strip, semi-quantitative NEGATIVE NEGATIVE Urine glucose detection by automated test strip NE GATIVE NEGATIVE Erythrocytes detection in urine sediment by light micr oscopy NEGATIVE NEGATIVE Urine ketones detection by automated test strip NE GATIVE NEGATIVE Urine nitrite detection by test strip NEGATIVE NEGATIVE Urine total bilirubin detection by test strip NEGA TIVE NEGATIVE Urine urobilinogen measurement by automated test strip (mass/volume) 1 mg/dL NORMAL Urine leukocyte esterase detection by dipstick 2+ NEGATIVE Automated urine sediment erythrocyte cou nt by microscopy (number/high power field) NONE NRG Automated urine sediment leukocyte count by microscopy (number/high power field) [HPF] NRG Bacteria detection in urine sediment by light microsco py FEW NRG Squamous epithelial cells detection in u rine sediment by light microscopy 5-10 NRG Crystals detection in urine sediment by light microsco py NONE NRG Casts detection in urine sediment by light microscopy NONE NRG Mucus detection in urine sediment by light microscopy NEGATIVE NRG Complete urinalysis with reflex to culture YES NRG Bacterial urine culture - 12/07/17 19:10 Bacterial urine culture [id number] NRG COLONY COUNT >100,000/ML NRG FTX;REPORTABLE SENSITIVITY REPORTED 12/09/17 7:35 NRG Bacterial susceptibility panel - 8 19:10 Gentamicin susceptibility test by minimum inhibitory c oncentration <= NRG Trimethoprim/sulfamethoxazole susceptibi lity test by minimum inhibitoryconcentration R NRG Ampicillin susceptibility test by minimum inhibitory c oncentration >= NRG Tobramycin susceptibility test by minimum inhibitory c oncentration <= NRG Cefazolin susceptibility test by minimum inhibitory co ncentration <= NRG Ceftriaxone susceptibility test by minimum inhibitory concentration <= NRG Ampicillin/sulbactam susceptibility test by minimum inhibitory concentration R NRG Piperacillin/tazobactam susceptibility t est by minimum inhibitory concentration S NRG Ciprofloxacin susceptibility test by minimum inhibitor y concentration >= NRG Meropenem susceptibility test by minimum inhibitory co ncentration <= NRG Nitrofurantoin susceptibility test by mi nimum inhibitory concentration <= NRG Aztreonam susceptibility test by minimum inhibitory co ncentration <= NRG Extended spectrum beta lactamase (ESBL) producing bacteria susceptibility test by minimum inhibitory concentration - NRG Complete urinalysis with reflex to cultu re - 12/20/17 17:58 Urine color determination YELLOW NRG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 Via [facility] WSo CTXS [id number] 01/21/2014 16:02:00 014 17:08:00 DIS Outpatient TATIANA WEI MD Via [facility] ABD PAIN [id number] 01/20/2014 23:16:00 00:48:00 DIS Outpatient TATIANA WEI MD Via [facility] CONTRACTIONS,FLUID LEAK ING [id number] 01/05/2014 16:57:00 014 18:40:00 DIS Outpatient TATIANA WEI MD [facility] CONTRACTIONS [id number] 12/27/2013 15:52:00 014 18:45:00 DIS Outpatient TATIANA WEI MD Via [facility] ABD PAIN; BACK PAIN [id number] 12/22/2013 21:16:00 014 22:55:00 DIS Emergency GLO BLOOM APRN Via [facility] ER FELL OFF BED @ 34 WEEKS , HEAD PAIN [id number] 12/10/2013 23:40:00 014 10:40:00 DIS Outpatient TATIANA WEI MD Via [facility] LOUD NOISES BOTHER PT,FEVER,COUGH,32 WKS PREG [id number] 12/10/2013 23:07:00 014 23:37:00 DIS Emergency JUVENAL ROGER MD Via [facility] ER LOUD NOISES BOTHER PT,F EVER,COUGH [id number] 12/07/2013 06:15:00 014 07:47:00 DIS Emergency HERNANDO SUNSHINE DO [facility] ER DIZZY,COUGHING,DIARRHEA [id number] 11/23/2013 13:22:00 014 17:56:00 DIS Emergency JAMEY ROMAN Via [facility] ER LOW BLOOD SUGAR/FEVER 29 WKS PREG [id number] 10/27/2013 17:11:00 014 20:00:00 DIS Outpatient TATIANA WEI MD Via [facility] C/O PREMATURE LABOR [id number] 10/23/2013 16:35:00 014 18:15:00 DIS Outpatient TATIANA WEI MD Via [facility] WSo BLEEDING [id number] 10/05/2013 20:27:00 21:46:00 DIS Emergency GLO BLOOM APRN Via [facility] ER N/V/D [id number] 09/23/2013 14:18:00 23:59:59 CLS Outpatient TATIANA WEI MD Via [facility] RAD FUNDAL HEIGHT DISCREPEN CY [id number] 09/03/2013 23:00:00 23:30:00 DIS Emergency HERNANDO SUNSHINE DO [facility] ER ALTERCATION,BACK PAIN [id number] 08/27/2013 18:08:00 20:58:00 DIS Emergency OSVALDO VALENTIN MD Via [facility] ER FELL AT HOME; A BD PAIN; L KNEE PAIN [id number] 08/21/2013 14:28:00 16:21:00 DIS Emergency GLO BLOOM APRN Via [facility] ER 15 WKS; ABD PAIN [id number] 07/21/2013 14:51:00 15:58:00 DIS Emergency GLO BLOOM APRN Via [facility] ER VOMITING 12 WKS PREG [id number] 06/28/2013 15:38:00 23:59:59 CLS Outpatient 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 Via [facility] RAD DATING,UNKNOWN LMP [id number] 05/09/2013 17:13:00 19:04:00 DIS Emergency HERNANDO SUNSHINE DO [facility] ER CUT R HAND ON GLASS [id number] 04/30/2013 18:48:00 21:44:00 DIS Emergency JAMEY ROMAN Via [facility] ER NAUSEA,VOMITING,ABD PA IN,FEVER [id number] 04/04/2013 20:11:00 013 21:26:00 DIS Emergency JUVENAL ROGER MD Via [facility] ER ABD PAIN [id number] 03/04/2013 13:16:00 013 23:59:59 CLS Outpatient MAJOR, GAMALIEL OH Via [facility] QUICK [id number] 05/26/2018 18:45:00 Document Registration [id number] 08/21/2016 01:00:00 Document Registration [id number] 08/20/2016 23:48:00 Document Registration [id number] 11/16/2014 10:01:00 Document Registration [id number] 11/16/2014 10:01:00 Document Registration [id number] 11/16/2014 10:01:00 Document Registration [id number] 11/16/2014 10:01:00 Document Registration [id number] 11/16/2014 10:01:00 Document Registration [id number] 11/16/2014 10:01:00 Document Registration [id number] 11/16/2014 10:01:00 Document Registration [id number] 11/16/2014 10:01:00 Document Registration [id number] 11/16/2014 10:01:00 Document Registration [id number] 11/16/2014 10:01:00 Document Registration [id number] 11/16/2014 10:01:00 Document Registration [id number] 11/16/2014 10:01:00 Document Registration [id number] 11/16/2014 10:01:00 Document Registration [id number] 11/16/2014 10:01:00 Document Registration [id number] 11/16/2014 10:01:00 Document Registration [id number] 08/26/2011 09:52:00 Document Registration [id number] 05/09/2011 17:28:00 Document Registration [id number] 03/20/2011 15:01:00 Document Registration [id number] 12/29/2010 22:03:00 Document Registration [id number] 12/24/2010 07:29:00 Document Registration [id number] 12/06/2010 22:29:00 Document Registration [id number] 01/22/2010 14:40:00 Document Registration [id number] 02/14/2015 09:23:00 02/14/2015 23:59: 59 CLS Outpatient ISIDORO 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YOVANITJ [id number] 11/29/2014 11:59:00 11/29/2014 23:59: 59 CLS Outpatient ISIDORO 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YOVANITJ [id number] 11/29/2014 11:59:00 11/29/2014 23:59: 59 CLS Outpatient ISIDORO 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YOVANITJ [id number] 10/19/2014 15:08:00 10/19/2014 23:59: 59 CLS Outpatient NEVA LCMF, ALISIA Mitchell [id number] 10/14/2014 08:59:00 10/14/2014 23:59: 59 CLS Outpatient NEVA LCMF, ALISIA Mitchell [id number] 09/19/2014 14:14:00 09/19/2014 23:59: 59 CLS Outpatient NEVA LCMF, ALISIA Mitchell [id number] 08/29/2014 14:04:00 08/29/2014 23:59: 59 CLS Outpatient NEVA LCMF, ALISIA Mitchell [id number] 08/22/2014 14:46:00 08/22/2014 23:59: 59 CLS Outpatient NEVA LCMF, ALISIA Mitchell [id number] 07/06/2014 09:43:00 07/06/2014 23:59: 59 CLS Outpatient YEMI 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SERG CordovaMILAGROS Salcedo [id number] 05/05/2014 10:05:00 05/05/2014 23:59: 59 CLS Outpatient ISIDORO 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TJ [place] [id number] 03/24/2014 08:43:00 03/24/2014 23:59: 59 CLS Outpatient NATE MEI PHD [id number] 02/22/2014 15:57:00 02/22/2014 23:59: 59 CLS Outpatient NATE MEI PHD [id number] 01/28/2014 08:17:00 01/28/2014 23:59: 59 CLS Outpatient NATE MEI PHD [id number] 10/19/2013 16:02:00 10/19/2013 23:59: 59 CLS Outpatient KACEY SCRUGGS DO [id number] 07/09/2012 08:24:00 07/09/2012 23:59: 59 [facility] Ashleigh MEI PHD, NATE Grace [id number] 06/23/2013 07:46:00 Document Registration [id number] 11/15/2012 15:36:46 RECURRING
[2020-01-20 20:09] LABS: BILIRUBIN,URINE NEGATIVE (NEGATIVE); CLARITY,URINE CLEAR; COLOR,URINE YELLOW; GLUCOSE, URINE (UA) NEGATIVE (NEGATIVE); KETONES,URINE NEGATIVE (NEGATIVE); LEUKOCYTE ESTERASE ,URINE NEGATIVE (NEGATIVE); NITRITE,URINE NEGATIVE (NEGATIVE); PH,URINE 5.5 (5-9); PROTEIN,URINE NEGATIVE (NEGATIVE)
--- NOTE | 2020-01-20 20:13 | ED Abdominal Pain ---
General Chief Complaint: [employer]IAN Stated Complaint: 8 WKS PREG - CRAMPING Source of Information: Patient Exam Limitations: No Limitations History of Present Illness Date Seen by Provider: Jan 20, 2020 Time Seen by Provider: 19:50 Initial Comments Patient presents to ER by private conveyance with chief complaint that today since this morning she's been having some cramping, constant sharp pain in her low pelvis midline. She says she is prone to UTIs. She is a at 8 weeks 1 day with a last menstrual period of November 24. She follows with Dr. Wei and has not had a formal ultrasound yet. She had no problems with previous sprains he's no abdominal surgeries and no trauma. She denies dysuria, hematuria but she does have constipation since starting her vitamins. She does not take any other medications. She has not had an ultrasound but she did have an ultrasound probe placed on her abdomen by Dr. Wei in the clinic just to listen to heart tones. Last week she was called and told that her swabs were positive for chlamydia and she started antibiotics yesterday. She was also put on Flagyl presumably for Trichomonas. She is not taking anything for her constipation and says she is prone to UTIs. Allergies and Home Medications Allergies Coded Allergies: No Known Drug Allergies (Unverified , 06/23/18) Home Medications Amoxicillin 500 Mg Capsule, 500 MG PO TID Prescribed by: OSVALDO VALENTIN on 05/31/19 2341 Hydroxyzine Pamoate 25 Mg Capsule, 25 MG PO Q6H PRN for ANXIETY Prescribed by: GLO BLOOM on 05/26/18 1851 Nitrofurantoin Macrocrystal 100 Mg Capsule, 100 MG PO BID Prescribed by: BRENDA KIRBY on 08/05/18 1234 Phenazopyridine HCl 100 Mg Tablet, 100 MG PO TID, (Reported) Sulfamethoxazole/Trimethoprim 1 Each Tablet, 1 EACH PO BID, (Reported) Patient Home Medication List Home Medication List Reviewed: Yes Review of Systems Review of Systems Constitutional: No chills, No diaphoresis EENTM: No Blurred Vision, No Double Vision Respiratory: Denies Cough, Denies Shortness of Air Cardiovascular: Denies Chest Pain, Denies Lightheadedness Gastrointestinal: Constipated; Denies Diarrhea Genitourinary: Denies Discharge, Denies Drainage Musculoskeletal: No joint swelling, No muscle pain Skin: No dryness, No pruritus Psychiatric/Neurological: Denies Headache, Denies Numbness All Other Systems Reviewed Negative Unless Noted: Yes Past Lnvwsrz-Bfuuni-Jtcrbv Hx Patient Social History Alcohol Use: Denies Use Recreational Drug Use: No Smoking Status: Former Smoker Type Used: Electronic/Vapor Former Smoker, Quit: Mar 20, 2018 2nd Hand Smoke Exposure: No Recent Foreign Travel: No Contact w/Someone Who Travel: No Recent Hopitalizations: No Immunizations Up To Date Tetanus Booster (TDap): Unknown PED Vaccines UTD: No Date of Influenza Vaccine: Oct 04, 2017 Seasonal Allergies Seasonal Allergies: Yes Past Medical History Surgeries: No Respiratory: No Asthma Currently Using CPAP: No Currently Using BIPAP: No Cardiac: No Neurological: No Reproductive Disorders: No Female Reproductive Disorders: Denies Sexually Transmitted Disease: Yes HIV/AIDS: No Genitourinary: Yes UTI-Chronic Gastrointestinal: No Gastroesophageal Reflux Musculoskeletal: No Endocrine: Yes Diabetes, Non-Insulin dep HEENT: No Cancer: No Psychosocial: Yes (panic attacks) Anxiety Integumentary: No Blood Disorders: No Family Medical History Family history: Asthma 03 MOTHER Family history: Diabetes mellitus (type 2 diabetes) 03 MOTHER History of - disorder (anxiety, Brother has heart murmur) 03 MOTHER No Pertinent Family Hx Physical Exam Vital Signs Vital Signs - First Documented 01/20/20 19:55 Temp 36.7 Pulse 88 Resp 20 B/P (MAP) 133/74 (93) Pulse Ox 98 O2 Delivery Room Air Capillary Refill : Height/Weight/BMI Height: 5'3.50" Weight: 125lbs. 0oz. 56.072174gq; 21.00 BMI Method:Stated General Appearance: WD/WN, mild distress HEENT: PERRL/EOMI, pharynx normal Neck: full range of motion, normal inspection Respiratory: normal breath sounds, no respiratory distress, no accessory muscle use Cardiovascular: normal peripheral pulses, regular rate, rhythm Peripheral Pulses: 2+ Radial Pulses (R), 2+ Radial Pulses (L) Gastrointestinal: normal bowel sounds, tenderness (suprapubic as well as bila teral lower pelvis mildly tender to palpation without rebound tenderness.) Neurologic/Psychiatric: alert, normal mood/affect, oriented x 3 Skin: normal color, warm/dry Progress/Results/Core Measures Results/Orders Lab Results Laboratory Tests Test 01/20/20 19:58 01/20/20 20:08 01/20/20 20:43 Range/Units Urine Color YELLOW Urine Clarity CLEAR Urine pH 5.5 5-9 Urine Specific [place] >=1.030 1.016-1.022 Urine Protein NEGATIVE NEGATIVE Urine Glucose (UA) NEGATIVE NEGATIVE Urine Ketones NEGATIVE NEGATIVE Urine Nitrite NEGATIVE NEGATIVE Urine Bilirubin NEGATIVE NEGATIVE Urine Urobilinogen 0.2 < = 1.0 MG/DL Urine Leukocyte Esterase NEGATIVE NEGATIVE Urine RBC (Auto) TRACE-I NEGATIVE Urine RBC RARE /HPF Urine WBC RARE /HPF Urine Squamous Epithelial Cells 5-10 /HPF Urine Crystals PRESENT H /LPF Urine Calcium Oxalate Crystals RARE H /LPF Urine Bacteria MODERATE H /HPF Urine Casts NONE /LPF Urine Mucus MODERATE H /LPF Urine Culture Indicated YES White Blood Count 9.3 4.3-11.0 10^3/uL Red Blood Count 4.97 4.35-5.85 10^6/uL Hemoglobin 14.0 11.5-16.0 G/DL Hematocrit 41 35-52 % Mean Corpuscular Volume 83 80-99 FL Mean Corpuscular Hemoglobin 28 25-34 PG Mean Corpuscular Hemoglobin Concent 34 32-36 G/DL Red Cell Distribution Width 13.6 10.0-14.5 % Platelet Count 294 130-400 10^3/uL Mean Platelet Volume 11.0 H 7.4-10.4 FL Neutrophils (%) (Auto) 65 42-75 % Lymphocytes (%) (Auto) 23 12-44 % Monocytes (%) (Auto) 8 0-12 % Eosinophils (%) (Auto) 4 0-10 % Basophils (%) (Auto) 1 0-10 % Neutrophils # (Auto) 6.0 1.8-7.8 X 10^3 Lymphocytes # (Auto) 2.1 1.0-4.0 X 10^3 Monocytes # (Auto) 0.7 0.0-1.0 X 10^3 Eosinophils # (Auto) 0.4 H 0.0-0.3 10^3/uL Basophils # (Auto) 0.1 0.0-0.1 10^3/uL Sodium Level 139 135-145 MMOL/L Potassium Level 3.6 3.6-5.0 MMOL/L Chloride Level 104 98-107 MMOL/L Carbon Dioxide Level 22 21-32 MMOL/L Anion Gap 13 5-14 MMOL/L Blood Urea Nitrogen 11 7-18 MG/DL Creatinine 0.78 0.60-1.30 MG/DL Estimat Glomerular Filtration Rate > 60 BUN/Creatinine Ratio 14 Glucose Level 55 *L 70-105 MG/DL Calcium Level 9.8 8.5-10.1 MG/DL Glucometer 100 70-110 MG/DL My Orders Orders - BRENDA KIRBY Ua Culture If Indicated (01/20/20 19:53) Urine Bedside (01/20/20 19:53) Hcg,Quantitative (01/20/20 20:04) Cbc With Automated Diff (01/20/20 20:04) Basic Metabolic Panel (01/20/20 20:04) Abo Rh Type (01/20/20 20:04) Urine Culture (01/20/20 19:58) Ceftriaxone For Im Use (Rocephin For Im (01/20/20 20:33) Lidocaine 1% Inj 20 Ml (Xylocaine 1% Inj (01/20/20 20:45) Accucheck Stat ONCE (01/20/20 20:40) Medications Given in ED Current Medications Medications Dose Ordered Sig/Adelita Route Start Time Stop Time Status Last Admin Dose Admin Lidocaine HCl 2.1 ml ONCE ONCE INJ 01/20/20 20:45 01/20/20 20:46 DC 01/20/20 20:50 2.1 ML Vital Signs/I&O 01/20/20 19:55 Temp 36.7 Pulse 88 Resp 20 B/P (MAP) 133/74 (93) Pulse Ox 98 O2 Delivery Room Air Progress Progress Note #1: Time: 20:16 Progress Note UA, basic labs. We'll give her some Tylenol for her pain. She's not having any nausea right now. Pelvic inflammatory disease versus urinary tract infection? Much less likely a ectopic given she's had an informal ultrasound by an accomplished family OB provider. We'll obtain urinalysis and bedside brings he was positive so we'll get a quantitative hCG. Progress Note #2: Time: 20:58 Progress Note Instead of putting the patient on doxycycline we are going to put her on a 7 day course of azithromycin. Tylenol And heating pads for pain. Return precautions given. Consults : Consulting Physician: TATIANA WEI MD Consults Notes Discussed the case with Dr. Wei over the phone and he remembers the patient. He put an ultrasound probe on her to look at her intrauterine at [facility]. Since he saw an intrauterine we can rule out ectopic . Departure Impression Primary Impression: PID (pelvic inflammatory disease) Additional Impressions: Qualified Codes: Z3A.08 - 8 weeks gestation of Constipation Qualified Codes: K59.03 - Drug induced constipation Disposition: 01 HOME, SELF-CARE Condition: Stable Departure-Patient Inst. Decision time for Depature: 21:00 Referrals: TATIANA WEI MD (PCP/Family) Primary Care Physician Patient Instructions: Pelvic Inflammatory Disease (DC) Add. Discharge Instructions: No intercourse until cleared by your [employer] provider. Continue taking the Flagyl as prescribed. Start taking the azithromycin 2 tablets first followed by one tablet every day until they are gone. Drink plenty of fluids. Tylenol 1000 mg every 8 hours as needed for pain. Heating pads as necessary for pain. Return to the ER. Having significant fever above 100.3, intractable nausea and vomiting, intractable pain or other worrisome symptoms. Follow-up with Dr. Wei next week in the clinic by calling him tomorrow morning for an appointment. lasting room supervisor a bottle of MiraLAX and take anywhere from 1-3 doses per day with fluids until your symptoms of constipation improved. You may also use glycerin suppositories to soften your stool so as to avoid straining. All discharge instructions reviewed with patient and/or family. Voiced understanding. Scripts Polyethylene Glycol 3350 (Miralax) 17 Gm Powd.pack 17 GM PO BID PRN PRN for CONSTIPATION-1ST LINE, #1 EACH 0 Refills Prov: BRENDA KIRBY 01/20/20 Azithromycin (Azithromycin) 250 Mg Tablet 250 MG PO DAILY for 7 Days, #8 TAB 0 Refills 2 tablets on 01/21/20 One tablet daily until gone Prov: BRENDA KIRBY 01/20/20 BRENDA KIRBY Jan 20, 2020 20:13
[2020-01-20 20:18] LABS: BASOPHILS # (AUTO) 0.1 10^3/uL (0.0-0.1); BASOPHILS % (AUTO) 1 % (0-10); EOSINOPHILS # (AUTO) 0.4 10^3/uL (0.0-0.3); EOSINOPHILS % (AUTO) 4 % (0-10); HEMATOCRIT 41 % (35-52); LYMPHOCYTES # (AUTO) 2.1 X 10^3 (1.0-4.0); LYMPHOCYTES % (AUTO) 23 % (12-44); MEAN CORPUSCULAR HEMOGLOBIN 28 PG (25-34); MEAN CORPUSCULAR HGB CONC 34 G/DL (32-36); MEAN CORPUSCULAR VOLUME 83 FL (80-99); MONOCYTES # (AUTO) 0.7 X 10^3 (0.0-1.0); MONOCYTES % (AUTO) 8 % (0-12); NEUTROPHILS % (AUTO) 65 % (42-75); PLATELET COUNT 294 10^3/uL (130-400); RED CELL DISTRIBUTION WIDTH 13.6 % (10.0-14.5); WHITE BLOOD COUNT 9.3 10^3/uL (4.3-11.0)
[2020-01-20 20:21] LABS: RBC,URINE RARE /HPF; WBC,URINE RARE /HPF
[2020-01-20 20:22] LABS: CALCIUM OXALATE CRYSTALS,UR RARE /LPF
[2020-01-20 20:28] LABS: BACTERIA,URINE MODERATE /HPF
[2020-01-20] MEDS ORDERED: cefTRIAXone 1,000 MG/2.86 ml vial (IM ONLY) IM STA (20:33)
[2020-01-20 20:34] LABS: BUN/CREATININE RATIO 14; CALCIUM 9.8 MG/DL (8.5-10.1); CARBON DIOXIDE 22 MMOL/L (21-32); CHLORIDE 104 MMOL/L (98-107); CREATININE SERUM 0.78 MG/DL (0.60-1.30); GFR ESTIMATED > 60; POTASSIUM 3.6 MMOL/L (3.6-5.0); SODIUM 139 MMOL/L (135-145)
[2020-01-20 20:39] LABS: GLUCOSE 55 MG/DL (70-105)
[2020-01-20] MEDS ORDERED: LIDOCAINE 1% INJ 20 ML 20 ML VIAL INJ ONE (20:45)
[2020-01-20] MEDS ORDERED: POLY17PO6 PO (21:02)
[2020-01-20] MEDS ORDERED: AZIT250T12 PO (21:02)
[2020-01-20 21:14] VITALS: BP 111/78
== END 2020-01-20 21:15 | disposition home or self-care (01) ==
LOC: EDUNIT# 19:47 → ER 19:49
DX: N73.9 Female pelvic inflammatory disease, unspecified (principal); K59.03 Drug induced constipation; Z3A.08 8 weeks gestation of pregnancy; Z87.891 Personal history of nicotine dependence
CPT/HCPCS: 36415; 80048; 81000; 82962; 84702; 84703; 85025; 86900; 86901; 87088

== ENCOUNTER 2020-02-05 20:34 | Emergency (ER) | payer MEDICAID ==
[~2020-02-05] VITALS: Ht 162 cm; Wt 56.4 kg
[~2020-02-05 20:34] MED LIST changes: +AZIT250T12 PO; +POLY17PO6 PO
[2020-02-05 20:44] VITALS: BP 133/68
--- NOTE | 2020-02-05 20:54 | ED Abdominal Pain ---
General Stated Complaint: 10 WKS CRAMPING Source of Information: Patient Exam Limitations: No Limitations History of Present Illness Date Seen by Provider: Feb 05, 2020 Time Seen by Provider: 20:51 Initial Comments ER with reports of suprapubic abdominal pain midline that she awakened with this morning, pain is worsened with movement and she has a lot of burning and pain with urination. 10 weeks gestation. No vaginal bleeding or discharge. She just had a pelvic exam done earlier this month which was reportedly positive for chlamydia and was treated for Trichomonas as well. Timing/Duration: 1-2 Days Severity/Quality: Moderate Location: Suprapubic Radiation: No Radiation Activities at Onset: None Allergies and Home Medications Allergies Coded Allergies: No Known Drug Allergies (Unverified , 06/23/18) Home Medications Amoxicillin 500 Mg Capsule, 500 MG PO TID Prescribed by: OSVALDO VALENTIN on 05/31/19 2341 Azithromycin 250 Mg Tablet, 250 MG PO DAILY 2 tablets on 01/21/20 One tablet daily until gone Prescribed by: BRENDA KIRBY on 01/20/202101 Cefuroxime Axetil 250 Mg Tablet, 250 MG PO BID Prescribed by: GLO BLOOM on 02/05/207 Cephalexin 500 Mg Capsule, 500 MG PO TID, (Reported) Hydroxyzine Pamoate 25 Mg Capsule, 25 MG PO Q6H PRN for ANXIETY Prescribed by: GLO BLOOM on 05/26/18 1851 Nitrofurantoin Macrocrystal 100 Mg Capsule, 100 MG PO BID Prescribed by: BRENDA KIRBY on 08/05/18 1234 Phenazopyridine HCl 100 Mg Tablet, 100 MG PO TID, (Reported) Polyethylene Glycol 3350 17 Gm Powd.pack, 17 GM PO BID PRN PRN for CONSTIPATION- 1ST LINE Prescribed by: BRENDA KIRBY on 01/20/202101 Sulfamethoxazole/Trimethoprim 1 Each Tablet, 1 EACH PO BID, (Reported) Patient Home Medication List Home Medication List Reviewed: Yes Review of Systems Review of Systems Constitutional: see HPI; No chills, No fever EENTM: No Symptoms Reported Respiratory: No Symptoms Reported Cardiovascular: No Symptoms Reported Gastrointestinal: No Symptoms Reported Genitourinary: No Symptoms Reported Musculoskeletal: no symptoms reported Skin: no symptoms reported Psychiatric/Neurological: No Symptoms Reported Endocrine: No Symptoms Reported Past Isuqyzw-Mofdal-Knwbff Hx Patient Social History Type Used: Electronic/Vapor Former Smoker, Quit: Mar 20, 2018 2nd Hand Smoke Exposure: No Recent Foreign Travel: No Contact w/Someone Who Travel: No Recent Hopitalizations: No Immunizations Up To Date Tetanus Booster (TDap): Unknown PED Vaccines UTD: No Date of Influenza Vaccine: Oct 04, 2017 Seasonal Allergies Seasonal Allergies: Yes Past Medical History Surgeries: No Respiratory: Yes Asthma Currently Using CPAP: No Currently Using BIPAP: No Cardiac: No Neurological: No Reproductive Disorders: No Female Reproductive Disorders: Denies Sexually Transmitted Disease: Yes HIV/AIDS: No Genitourinary: Yes UTI-Chronic Gastrointestinal: No Gastroesophageal Reflux Musculoskeletal: No Endocrine: Yes Diabetes, Non-Insulin dep HEENT: No Cancer: No Psychosocial: Yes (panic attacks) Anxiety Integumentary: No Blood Disorders: No Family Medical History Family history: Asthma 03 MOTHER Family history: Diabetes mellitus (type 2 diabetes) 03 MOTHER History of - disorder (anxiety, Brother has heart murmur) 03 MOTHER No Pertinent Family Hx Physical Exam Vital Signs Vital Signs - First Documented 02/05/20 20:44 Temp 36.4 Pulse 83 Resp 20 B/P (MAP) 133/68 (89) Pulse Ox 99 O2 Delivery Room Air Capillary Refill : Height/Weight/BMI Height: 5'3.50" Weight: 125lbs. 0oz. [id number]; 20.00 BMI Method:Stated General Appearance: WD/WN, no apparent distress, other (smiling, talkative, well-appearing in no distress) Respiratory: no respiratory distress, no accessory muscle use Gastrointestinal: normal bowel sounds, soft, tenderness (suprapubic) Extremities: normal range of motion, non-tender Neurologic/Psychiatric: alert, normal mood/affect, oriented x 3 Skin: normal color, warm/dry Exam Comments Bedside ultrasound reveals an intrauterine with positive motion and cardiac activity. Progress/Results/Core Measures Results/Orders Lab Results Laboratory Tests Test 02/05/20 20:49 02/05/20 20:51 Range/Units White Blood Count 9.1 4.3-11.0 10^3/uL Red Blood Count 4.59 4.35-5.85 10^6/uL Hemoglobin 13.3 11.5-16.0 G/DL Hematocrit 38 35-52 % Mean Corpuscular Volume 83 80-99 FL Mean Corpuscular Hemoglobin 29 25-34 PG Mean Corpuscular Hemoglobin Concent 35 32-36 G/DL Red Cell Distribution Width 14.0 10.0-14.5 % Platelet Count 270 130-400 10^3/uL Mean Platelet Volume 10.4 7.4-10.4 FL Neutrophils (%) (Auto) 64 42-75 % Lymphocytes (%) (Auto) 24 12-44 % Monocytes (%) (Auto) 9 0-12 % Eosinophils (%) (Auto) 3 0-10 % Basophils (%) (Auto) 0 0-10 % Neutrophils # (Auto) 5.8 1.8-7.8 X 10^3 Lymphocytes # (Auto) 2.2 1.0-4.0 X 10^3 Monocytes # (Auto) 0.9 0.0-1.0 X 10^3 Eosinophils # (Auto) 0.2 0.0-0.3 10^3/uL Basophils # (Auto) 0.0 0.0-0.1 10^3/uL Urine Color YELLOW Urine Clarity CLEAR Urine pH 7.5 5-9 Urine Specific [place] 1.020 1.016-1.022 Urine Protein NEGATIVE NEGATIVE Urine Glucose (UA) NEGATIVE NEGATIVE Urine Ketones NEGATIVE NEGATIVE Urine Nitrite NEGATIVE NEGATIVE Urine Bilirubin NEGATIVE NEGATIVE Urine Urobilinogen 0.2 < = 1.0 MG/DL Urine Leukocyte Esterase TRACE H NEGATIVE Urine RBC (Auto) NEGATIVE NEGATIVE Urine RBC NONE /HPF Urine WBC 0-2 /HPF Urine Crystals PRESENT H /LPF Urine Amorphous Sediment LARGE SHU PHOSPHATE H /LPF Urine Bacteria TRACE /HPF Urine Casts NONE /LPF Urine Mucus NEGATIVE /LPF Urine Culture Indicated NO My Orders Orders - GLO BLOOM APPLICATION SUPPORT ENGINEER Ua Culture If Indicated (02/05/20 20:50) Cbc With Automated Diff (02/05/20 20:50) Hcg,Quantitative (02/05/20 20:50) Cephalexin Capsule (Keflex Capsule) (02/05/20 21:30) Vital Signs/I&O 02/05/20 20:44 Temp 36.4 Pulse 83 Resp 20 B/P (MAP) 133/68 (89) Pulse Ox 99 O2 Delivery Room Air Departure Impression Primary Impression: Abdominal cramping Additional Impression: UTI (urinary tract infection) Disposition: 01 HOME, SELF-CARE Condition: Stable Departure-Patient Inst. Decision time for Depature: 20:53 Referrals: TATIANA WEI MD (PCP/Family) Primary Care Physician Patient Instructions: NO INSTRUCTIONS GIVEN Add. Discharge Instructions: 1. Follow-up with Dr. Wei 2. Return here for any concerns. Antibiotic as directed. Scripts Cefuroxime Axetil (Cefuroxime) 250 Mg Tablet 250 MG PO BID, #10 TAB Prov: GLO BLOOM APRN 02/05/20 GLO BLOOM APRN Feb 05, 2020 20:53
[2020-02-05 20:56] LABS: BASOPHILS % (AUTO) 0 % (0-10); EOSINOPHILS # (AUTO) 0.2 10^3/uL (0.0-0.3); EOSINOPHILS % (AUTO) 3 % (0-10); HEMATOCRIT 38 % (35-52); HEMOGLOBIN 13.3 G/DL (11.5-16.0); LYMPHOCYTES # (AUTO) 2.2 X 10^3 (1.0-4.0); LYMPHOCYTES % (AUTO) 24 % (12-44); MEAN CORPUSCULAR HEMOGLOBIN 29 PG (25-34); MEAN CORPUSCULAR HGB CONC 35 G/DL (32-36); MEAN CORPUSCULAR VOLUME 83 FL (80-99); MEAN PLATELET VOLUME 10.4 FL (7.4-10.4); MONOCYTES # (AUTO) 0.9 X 10^3 (0.0-1.0); MONOCYTES % (AUTO) 9 % (0-12); NEUTROPHILS # (AUTO) 5.8 X 10^3 (1.8-7.8); NEUTROPHILS % (AUTO) 64 % (42-75); PLATELET COUNT 270 10^3/uL (130-400); WHITE BLOOD COUNT 9.1 10^3/uL (4.3-11.0)
[2020-02-05 21:02] LABS: BILIRUBIN,URINE NEGATIVE (NEGATIVE); CLARITY,URINE CLEAR; COLOR,URINE YELLOW; GLUCOSE, URINE (UA) NEGATIVE (NEGATIVE); KETONES,URINE NEGATIVE (NEGATIVE); LEUKOCYTE ESTERASE ,URINE TRACE (NEGATIVE); NITRITE,URINE NEGATIVE (NEGATIVE); PH,URINE 7.5 (5-9); PROTEIN,URINE NEGATIVE (NEGATIVE)
[2020-02-05 21:16] LABS: BACTERIA,URINE TRACE /HPF; WBC,URINE 0-2 /HPF
[2020-02-05 21:17] LABS: AMORPHOUS SEDIMENT,UR LARGE AMOR PHOSPHATE /LPF
[2020-02-05] MEDS ORDERED: CEFU250T80 PO (21:27)
[2020-02-05] MEDS ORDERED: CEPHALEXIN 250 MG (KEFLEX) CAP PO ONE (21:30)
== END 2020-02-05 21:33 | disposition home or self-care (01) ==
LOC: EDUNIT# 20:34 → ER 20:36
DX: O23.41 Unspecified infection of urinary tract in pregnancy, first trimester (principal); O99.511 Diseases of the respiratory system complicating pregnancy, first trimester; J45.909 Unspecified asthma, uncomplicated; O99.341 Other mental disorders complicating pregnancy, first trimester; F41.9 Anxiety disorder, unspecified; Z3A.10 10 weeks gestation of pregnancy
CPT/HCPCS: 36415; 81000; 84702; 85025; 87088

== ENCOUNTER 2020-02-12 11:29 | Emergency (ER) | payer MEDICAID ==
[~2020-02-12] VITALS: Ht 160 cm; Wt 57.7 kg
[~2020-02-12 11:29] MED LIST changes: +CEFU250T80 PO
--- OUTSIDE RECORDS SUMMARY | 2020-02-12 11:37 | XMS REPORT ---
Author Author Candace Romeo [facility] Address [address] [place] [address] Care Team Providers Care Cv Tech Name Role Phone TJ Romeo Unavailable PROBLEMS Type Condition ICD9-CM Code LAY30-CV Code Onset Dates Condition S tatus SNOMED Code Problem Normal in first trimester Z34.91 Active 82372367 Problem Normal in second trimester Z34.92 Active 11032775 Problem Adjustment disorder with anxiety F43.22 Active 59406690 Problem Gender dysphoria F64.9 Active 934 56658 Problem Bipolar 1 disorder, manic, mild F31.11 Active 74512116 Problem Borderline personality disorder F60.3 Active 84969843 Problem Adjustment disorder with depressed mood F43.21 Active 206576245 Problem Mood disorder F39 Active 470224 05 Problem Anxiety F41.9 Active 02401660 Problem Seasonal allergies J30.2 Active 4 51284312 Problem Missed period N92.6 Active 944877 00 ALLERGIES No Information ENCOUNTERS Encounter Location Date Diagnosis [facility] [address] [facility] [id number] [address] [place] [id number] 29 Jan, 2020 [facility] [address] [facility] [id number] [address] [place] [address] Jan, [facility] [address] [facility] [id number] [address] [place] [phone] Jan, [facility] [address] [facility] [id number] [address] [place] [address] Jan, [facility] [address] [facility] [id number] [address] [place] [id number] 10 Jan, 2020 First trimester Z3 4.91 [facility] [address] [facility] [id number] [address] [place] [address] 08 Jan, 2020 Acute lower UTI N39.0 and Fi rst trimester Z34.91 [facility] [address] [id number] [address] [place] [address] Jan, [facility] [address] [facility] [id number] [address] [place] [address] Jan, [facility] [address] [facility] [id number] [address] [place] [address] Jan, First trimester Z3 4.91 [facility] [address] [facility] [id number] [address] [place] [phone] Jan, [facility] [address] [facility] [id number] [address] [place] [id number] Dec, [facility] [address] [facility] [id number] [address] [place] [address] Dec, Missed period N92.6 [facility] [address] [facility] [id number] [address] [place] [address] Dec, [facility] [address] [facility] [id number] [address] [place] [address] Dec, Borderline personality disor misael F60.3 and Mood disorder F39 [facility] [address] [facility] [id number] [address] [place] [phone] 14 Nov, 2019 Encounter for immunization Z 23 [facility] [address] [facility] [id number] [address] [place] [address] Oct, [facility] [address] [facility] [id number] [address] [place] [address] Jun, Mood disorder F39 and Border line personality disorder F60.3 [facility] [address] [facility] [id number] [address] [place] [address] Jun, Mood disorder F39 [facility] [address] [facility] [id number] [address] [place] [address] May, [facility] [address] [place] [id number] [address] [place] [id number] 05 May, 2019 control counseling Z30 .09 and Encounter for Depo-Provera contraception Z30.42 [facility] [address] [address] Apr, Lower abdominal pain R10.30 [place] [address] [address] 12 Nov, 2018 Mood disorder F39 and Gender dysphoria F64.9 [place] [address] [address] 24 Jul, 2018 Missed period N92.6 [place] [address] [address] 22 Jul, 2018 Encounter for test , result unknown Z32.00 [place] [address] [address] Jul, Hand pain, right M79.641 [facility] [address] [address] May, Allergic rhinitis, unspecifi ed seasonality, unspecified trigger J30.9 [place] [address] [address] May, [place] [address] [address] Apr, Mood disorder F39 [place] [address] [address] Apr, Syncope, unspecified syncope type R55 and Dizziness R42 [place] [address] [address] Mar, Adjustment disorder with dep ressed mood F43.21 and Anxiety F41.9 [facility] [address] [address] February, Seasonal allergies J30.2 [place] [address] [address] February, [facility] [address] [address] Dec, Seasonal allergic rhinitis, unspecified trigger J30.2 and Sore throat J02.9 [place] [address] [address] Oct, Mood disorder F39 [place] [address] [address] Oct, Mood disorder F39 [place] [address] [address] Sep, Adjustment disorder with dep ressed mood F43.21 ; Screening cholesterol level Z13.220 and Screening for diabetes mellitus Z13.1 [place] [address] [address] Sep, Adjustment disorder with anx iety F43.22 and Adjustment disorder with depressed mood F43.21 [facility] [place] [address] [address] Aug, Pharyngitis due to other org anism J02.8 [facility] [place] [address] [address] 10 Aug, 2017 Sore throat J02.9 and Acute nasopharyngitis (common cold) J00 [facility] [address] [address] Mar, Acute nasopharyngitis J00 [place] [address] [address] 07 Mar, 2017 Adjustment disorder with anx iety F43.22 ; Adjustment disorder with depressed mood F43.21 and Bipolar 1 disorder, manic, mild F31.11 [place] [address] [address] Mar, [facility] [address] [id number] [address] [place] [address] Nov, 39 weeks gestation of pregna ncy Z3A.39 [facility] [address] [facility] [id number] [address] [place] [address] Nov, care in third trime ster Z34.93 [facility] [address] [facility] [id number] [address] [place] [address] Oct, Normal in third tr imester Z34.93 [facility] [address] [id number] [address] [place] [address] Oct, [facility] [address] [facility] [id number] [address] [place] [address] Oct, Third trimester at less than 36 weeks Z33.1 [facility] [address] [facility] [id number] [address] [place] [address] Oct, [facility] [id number] [place] [id number] Oct, [facility] [address] [facility] [id number] [address] [place] [address] Oct, Normal in third tr imester Z34.93 [facility] [address] [facility] [id number] [address] [place] [address] Sep, Normal in third tr imester Z34.93 [facility] [address] [facility] [id number] [address] [place] [address] Sep, Third trimester at less than 36 weeks Z33.1 and Encounter for immunization Z23 [facility] [address] [facility] [id number] [address] [place] [address] 23 Aug, 2016 Adjustment disorder with anx iety F43.22 and Adjustment disorder with depressed mood F43.21 [facility] [address] [facility] [id number] [address] [place] [address] 16 Aug, 2016 Abnormal glucose tolerance t est in O99.810 [facility] [address] [facility] [id number] [address] [place] [id number] 09 Aug, 2016 [facility] [address] [facility] [id number] [address] [place] [address] Aug, Normal in [address] [place] [facility] [address] [facility] [id number] [address] [place] [address] Aug, Acute upper respiratory infe ction, unspecified J06.9 and Other viral agents as the cause of diseases classified elsewhere B97.89 [facility] [address] [facility] [id number] [address] [place] [address] Jul, Adjustment disorder with dep ressed mood F43.21 and Bipolar 1 disorder, manic, mild F31.11 [place] [address] [facility] [id number] [address] [place] [address] Jul, Bipolar 1 disorder, manic, m ild F31.11 ; Adjustment disorder with anxiety F43.22 and Adjustment disorder with depressed mood F43.21 [place] [address] [facility] [id number] [address] [place] [address] Jul, Normal in [address] [place] [facility] [address] [facility] [id number] [address] [place] [address] Jul, Contact dermatitis, unspecif ied contact dermatitis type, unspecified trigger L25.9 [facility] [address] [facility] [id number] [address] [place] [address] Jul, Adjustment disorder with dep ressed mood F43.21 ; Adjustment disorder with anxiety F43.22 and Bipolar 1 disorder, manic, mild F31.11 [place] [address] [facility] [id number] [address] [place] [address] Jul, Adjustment disorder with dep ressed mood F43.21 and Bipolar 1 disorder, manic, mild F31.11 [facility] [address] [facility] [id number] [address] [place] [address] Jun, Adjustment disorder with dep ressed mood F43.21 and Bipolar 1 disorder, manic, mild F31.11 [facility] [address] [id number] [address] [place] [address] Jun, Adjustment disorder with dep ressed mood F43.21 ; Bipolar 1 disorder, manic, mild F31.11 and Anxiety, generalized F41.1 [place] [address] [facility] [id number] [address] [place] [address] Jun, Normal in second t rimester Z34.92 ; 18 weeks gestation of Z3A.18 and Encounter for immunization Z23 [place] [address] [facility] [id number] [address] [place] [address] 07 Jun, 2016 Normal in first tr imester Z34.91 [place] [address] [facility] [id number] [address] [place] [address] May, care in second trim carlos Z34.92 [facility] [address] [id number] [address] [place] [address] May, [place] [address] [facility] [id number] [address] [place] [address] May, [place] [address] [facility] [id number] [address] [place] [address] May, Major depressive disorder, r ecurrent, moderate F33.1 [place] [address] [facility] [id number] [address] [place] [address] 10 May, 2016 Normal in first tr imester Z34.91 ; Pap smear for cervical cancer screening Z12.4 ; Screen for STD (sexually transmitted disease) Z11.3 and 12 weeks gestation of Z3A.12 [facility] [address] [facility] [id number] [address] [place] [address] 08 May, 2016 12 weeks gestation of pregna ncy Z3A.12 ; Unspecified abdominal pain R10.9 and Other specified related conditions, unspecified trimester O26.899 [place] [address] [facility] [id number] [address] [place] [address] Apr, [facility] [address] [facility] [id number] [address] [place] [address] Apr, [place] [address] [facility] [id number] [address] [place] [address] February, [place] [address] [facility] [id number] [address] [place] [address] February, Bipolar 1 disorder, manic, m ild F31.11 and Adjustment disorder with depressed mood F43.21 [place] [address] [facility] [id number] [address] [place] [address] Dec, Major depressive disorder, s ken episode, moderate F32.1 ; Adjustment disorder with depressed mood F43.21 and Bipolar 1 disorder, manic, mild F31.11 [place] [address] [place] [id number] [address] [place] [address] Dec, Adjustment disorder with dep ressed mood F43.21 ; Major depressive disorder, single episode, moderate F32.1 and Bipolar 1 disorder, manic, mild F31.11 [place] [address] [facility] [id number] [address] [place] [address] Dec, Right hand pain M79.641 [place] [address] [facility] [id number] [address] [place] [address] Dec, Major depressive disorder, s ken episode, moderate F32.1 and Adjustment disorder with depressed mood F43.21 [place] [address] [facility] [id number] [address] [place] [address] Nov, Major depressive disorder, s ken episode, moderate F32.1 [place] [address] [facility] [id number] [address] [place] [address] Nov, Adjustment disorder with dep ressed mood F43.21 ; Bipolar 1 disorder, manic, mild F31.11 and Adjustment disorder with anxiety F43.22 [place] [address] [place] [id number] [address] [place] [address] Oct, [place] [address] [address] Oct, Encounter for counseling reg arding contraception Z30.9 ; Initiation of OCP (BCP) Z30.011 ; Routine screening for STI (sexually transmitted infection) Z11.3 and Dysmenorrhea N94.6 [place] [address] [address] Sep, Acute upper respiratory infe ction, unspecified J06.9 ; Other viral agents as the cause of diseases classified elsewhere B97.89 and Post-nasal drip R09.82 [place] [address] [address] Aug, Depressive disorder, not els ewhere classified 311 [place] [address] [address] Jul, Depression, major, recurrent , moderate F33.1 [place] [address] [address] Jun, Major depressive disorder, r ecurrent episode, moderate 296.32 [place] [address] [address] 04 Mar, 2015 Major depression, recurrent 296.30 [place] [address] [place] [id number] [address] [place] [address] 14 Jan, 2015 [place] [address] [address] Jan, [place] [address] [address] Dec, [place] [address] [address] Dec, [place] [address] [address] Nov, [facility] [address] [id number] [address] [place] [address], [place] [address] Nov, [facility] [address] [id number] [address] [place] [address], [place] [address] Oct, [facility] [address] [id number] [address] [place] [address], [place] [address] Oct, [facility] [address] [id number] [address] [place] [address], [place] [address] Sep, [facility] [address] [id number] [address] [place] [address], [place] [address] Sep, [facility] [address] [id number] [address] [place] [address], [place] [address] Sep, [facility] [address] [id number] [address] [place] [address], [place] [address] Sep, [facility] [address] [id number] [address] [place] [address], [place] [address] Sep, [facility] [address] [id number] [address] [place] [address], [place] [address] Sep, [facility] [address] [id number] [address] [place] [address], [place] [address] Aug, [facility] [address] [id number] [address] [place] [address], [place] [address] Aug, [facility] [address] [id number] [address] [place] [address], [place] [address] Aug, [facility] [address] [id number] [address] [place] [address], [place] [address] Aug, [facility] [address] [id number] [address] [place] [address], [place] [address] Jul, [facility] [address] [id number] [address] [place] [address], [place] [address] Jul, [facility] [address] [id number] [address] [place] [address], [place] [address] 16 Jul, 2014 [facility] [address] [id number] [address] [place] [address], [place] [address] 16 Jul, 2014 [facility] [address] [id number] [address] [place] [address], [place] [address] 17 Jun, 2014 [facility] [address] [id number] [address] [place] [address], [place] [address] 17 Jun, 2014 [facility] [address] [id number] [address] [place] [address], [place] [address] 17 Jun, 2014 [facility] [address] [id number] [address] [place] [address], [place] [address] Jun, [facility] [address] [id number] [address] [place] [address], [place] [address] Apr, [facility] [address] [id number] [address] [place] [address], [place] [address] Apr, [facility] [address] [id number] [address] [place] [address], [place] [address] Mar, [facility] [address] [id number] [address] [place] [address], [place] [address] Mar, [facility] [address] [id number] [address] [place] [address], [place] [address] Mar, [facility] [address] [id number] [address] [place] [address], [place] [address] Mar, [facility] [address] [id number] [address] [place] [address], [place] [address] February, [facility] [address] [id number] [address] [place] [address], [place] [address] February, [facility] [address] [id number] [address] [place] [address], [place] [address] February, [facility] [address] [id number] [address] [place] [address], [place] [address] February, [facility] [address] [id number] [address] [place] [address], [place] [address] February, [facility] [address] [id number] [address] [place] [address], [place] [address] February, [facility] [address] [id number] [address] [place] [address], [place] [address] February, [facility] [address] [id number] [address] [place] [address], [place] [address] Jan, [facility] [address] [id number] [address] [place] [address], [place] [address] Jan, [facility] [address] [id number] [address] [place] [address], [place] [address] Jan, [facility] [address] [id number] [address] [place] [address], [place] [address] Jan, [facility] [address] [id number] [address] [place] [address], [place] [address] Jan, [facility] [address] [id number] [address] [place] [address], [place] [address] Jan, [facility] [address] [id number] [address] [place] [address], [place] [address] Jan, [facility] [address] [id number] [address] [place] [address], [place] [address] Jan, [facility] [address] [id number] [address] [place] [address], [place] [address] Oct, [facility] [address] [id number] [address] [place] [address], [place] [address] Oct, [facility] [address] [id number] [address] [place] [address], [place] [address] Sep, [facility] [address] [id number] [address] [place] [address], [place] [address] Sep, [facility] [address] [id number] [address] [place] [address], [place] [address] 11 Jun, 2013 [facility] [address] [id number] [address] [place] [address], [place] [address] 04 Jun, 2013 [facility] [address] [id number] [address] [place] [address], [place] [address] 27 Oct, 2012 [facility] [address] [id number] [address] [place] [address], [place] [address] Sep, [facility] [address] [id number] [address] [place] [address], [place] [address] 08 Sep, 2012 [facility] [address] [id number] [address] [place] [address], [place] [address] 26 Jun, 2012 [facility] [address] [id number] [address] [place] [address], [place] [address] 25 Jun, 2012 [facility] [address] [id number] [address] [place] [address], [place] [address] 24 Jun, 2012 [facility] [address] [id number] [address] [place] [address], [place] [address] 20 Jun, 2012 [facility] [address] [id number] [address] [place] [address], [place] [address] 20 Jun, 2012 [facility] [address] [id number] [address] [place] [address], [place] [address] 05 Jun, 2012 [facility] [address] [id number] [address] [place] [address], [place] [address] Apr, [facility] [address] [id number] [address] [place] [address], [place] [address] Mar, [facility] [address] [id number] [address] [place] [address], [place] [address] Mar, [facility] [address] [id number] [address] [place] [address], [place] [address] Dec, [facility] [address] [id number] [address] [place] [address], [place] [address] Oct, [facility] [address] [id number] [address] [place] [id number] 15 Aug, 2011 [facility] [address] [id number] [address] [place] [id number] Aug, [facility] [address] [id number] [address] [place] [id number] 10 Aug, 2011 [facility] [address] [id number] [address] [place] [id number] Aug, [facility] [address] [id number] [address] [place] [id number] Aug, [facility] [address] [id number] [address] [place] [id number] 24 Jul, 2011 [facility] [address] [id number] [address] [place] [id number] Jul, [facility] [address] [id number] [address] [place] [address] Jun, [facility] [address] [address] [id number] [address] [place] [phone] Jul, [facility] [address] [id number] [address] [place] [phone] Aug, [facility] [address] [id number] [address] [place] [id number] Aug, [facility] [address] [id number] [address] [place] [phone] Oct, IMMUNIZATIONS No Known Immunizations SOCIAL HISTORY [...] 2 natural births Hospitalization History childbirth 01/2014 Hospitalization History child 11/2016
--- OUTSIDE RECORDS SUMMARY | 2020-02-12 11:37 | XMS REPORT ---
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 Role Phone ALISIA Santos Unavailable PROBLEMS Type Condition ICD9-CM Code UTF99-EE Code Onset Dates Condition S tatus SNOMED Code Problem Normal in first trimester Z34.91 Active 09608964 Problem Normal in second trimester Z34.92 Active 46395546 Problem Adjustment disorder with anxiety F43.22 Active 03791135 Problem Gender dysphoria F64.9 Active 934 59869 Problem Bipolar 1 disorder, manic, mild F31.11 Active 44153088 Problem Borderline personality disorder F60.3 Active 85325679 Problem Adjustment disorder with depressed mood F43.21 Active 515909658 Problem Mood disorder F39 Active 636605 05 Problem Anxiety F41.9 Active 86467819 Problem Seasonal allergies J30.2 Active 4 47980801 Problem Missed period N92.6 Active 597360 00 ALLERGIES No Information ENCOUNTERS Encounter Location Date Diagnosis [facility] [address] [facility] [id number] [address] [place] [phone] Jan, [facility] [address] [facility] [id number] [address] [place] [phone] Jan, [facility] [address] [facility] [id number] [address] [place] [address] Jan, [facility] [address] [facility] [id number] [address] [place] [phone] Jan, [facility] [address] [facility] [id number] [address] [place] [phone] 10 Jan, 2020 First trimester Z3 4.91 [facility] [address] [facility] [id number] [address] [place] [phone] 08 Jan, 2020 Acute lower UTI N39.0 and Fi rst trimester Z34.91 [facility] [address] [facility] [id number] [address] [place] [phone] Jan, [facility] [address] [facility] [id number] [address] [place] [address] Jan, [facility] [address] [facility] [id number] [address] [place] [phone] Jan, First trimester Z3 4.91 [facility] [address] [facility] [id number] [address] [place] [address] Jan, [facility] [address] [facility] [id number] [address] [place] [address] Dec, [facility] [address] [facility] [id number] [address] [place] [phone] Dec, Missed period N92.6 [facility] [address] [facility] [id number] [address] [place] [phone] Dec, [facility] [address] [facility] [id number] [address] [place] [id number] Dec, Borderline personality disor misael F60.3 and Mood disorder F39 [facility] [address] [facility] [id number] [address] [place] [phone] 14 Nov, 2019 Encounter for immunization Z 23 [facility] [address] [facility] [id number] [address] [place] [phone] Oct, [facility] [address] [facility] [id number] [address] [place] [phone] Jun, Mood disorder F39 and Border line personality disorder F60.3 [facility] [address] [facility] [id number] [address] [place] [address] Jun, Mood disorder F39 [facility] [address] [facility] [id number] [address] [place] [phone] May, [facility] [address] [place] [id number] [address] [place] [phone] 05 May, 2019 control counseling Z30 .09 and Encounter for Depo-Provera contraception Z30.42 [facility] [address] [id number] Apr, Lower abdominal pain R10.30 [place] [address] [address] 12 Nov, 2018 Mood disorder F39 and Gender dysphoria F64.9 [place] [address] [id number] 24 Jul, 2018 Missed period N92.6 [place] [address] [address] Jul, Encounter for test , result unknown Z32.00 [place] [address] [address] Jul, Hand pain, right M79.641 [facility] [address] [address] May, Allergic rhinitis, unspecifi ed seasonality, unspecified trigger J30.9 [place] [address] [address] May, [place] [address] [address] Apr, Mood disorder F39 [place] [address] [address] Apr, Syncope, unspecified syncope type R55 and Dizziness R42 [place] [address] [address] Mar, Adjustment disorder with dep ressed mood F43.21 and Anxiety F41.9 [facility] [address] [address] February, Seasonal allergies J30.2 [place] [id number] [address] February, [facility] [address] [address] Dec, Seasonal allergic rhinitis, unspecified trigger J30.2 and Sore throat J02.9 [place] [address] [address] Oct, Mood disorder F39 [place] [address] [address] Oct, Mood disorder F39 [place] [address] [address] Sep, Adjustment disorder with dep ressed mood F43.21 ; Screening cholesterol level Z13.220 and Screening for diabetes mellitus Z13.1 [place] [address] [address] Sep, Adjustment disorder with anx iety F43.22 and Adjustment disorder with depressed mood F43.21 [facility] [place] [address] [address] Aug, Pharyngitis due to other org anism J02.8 [facility] [place] [address] [id number] 10 Aug, 2017 Sore throat J02.9 and Acute nasopharyngitis (common cold) J00 [facility] [address] [address] Mar, Acute nasopharyngitis J00 [place] [address] [address] 07 Mar, 2017 Adjustment disorder with anx iety F43.22 ; Adjustment disorder with depressed mood F43.21 and Bipolar 1 disorder, manic, mild F31.11 [place] [address] [address] Mar, [facility] [address] [facility] [id number] [address] [place] [address] Nov, 39 weeks gestation of pregna ncy Z3A.39 [facility] [address] [facility] [id number] [address] [place] [address] Nov, care in third trime ster Z34.93 [facility] [address] [facility] [id number] [address] [place] [phone] Oct, Normal in third tr imester Z34.93 [facility] [address] [facility] [id number] [address] [place] [phone] Oct, [facility] [address] [facility] [id number] [address] [place] [address] Oct, Third trimester at less than 36 weeks Z33.1 [facility] [address] [facility] [id number] [address] [place] [address] Oct, [facility] [address] [place] [id number] [place] [id number] Oct, [facility] [address] [facility] [id number] [address] [place] [address] Oct, Normal in third tr imester Z34.93 [facility] [address] [facility] [id number] [address] [place] [phone] Sep, Normal in third tr imester Z34.93 [facility] [address] [facility] [id number] [address] [place] [address] Sep, Third trimester at less than 36 weeks Z33.1 and Encounter for immunization Z23 [facility] [address] [facility] [id number] [address] [place] [phone] 23 Aug, 2016 Adjustment disorder with anx iety F43.22 and Adjustment disorder with depressed mood F43.21 [facility] [address] [place] [id number] [address] [place] [address] 16 Nov, 2016 Abnormal glucose tolerance t est in O99.810 [facility] [address] [facility] [id number] [address] [place] [address] Aug, [facility] [address] [facility] [id number] [address] [place] [phone] Aug, Normal in [address] [place] [facility] [address] [facility] [id number] [address] [place] [phone] Aug, Acute upper respiratory infe ction, unspecified J06.9 and Other viral agents as the cause of diseases classified elsewhere B97.89 [place] [address] [facility] [id number] [address] [place] [address] Jul, Adjustment disorder with dep ressed mood F43.21 and Bipolar 1 disorder, manic, mild F31.11 [place] [address] [facility] [id number] [address] [place] [phone] Jul, Bipolar 1 disorder, manic, m ild F31.11 ; Adjustment disorder with anxiety F43.22 and Adjustment disorder with depressed mood F43.21 [place] [address] [facility] [id number] [address] [place] [address] Jul, Normal in [address] [place] [facility] [address] [facility] [id number] [address] [place] [phone] Jul, Contact dermatitis, unspecif ied contact dermatitis type, unspecified trigger L25.9 [facility] [address] [facility] [id number] [address] [place] [phone] Jul, Adjustment disorder with dep ressed mood F43.21 ; Adjustment disorder with anxiety F43.22 and Bipolar 1 disorder, manic, mild F31.11 [place] [address] [facility] [id number] [address] [place] [address] Jul, Adjustment disorder with dep ressed mood F43.21 and Bipolar 1 disorder, manic, mild F31.11 [facility] [address] [facility] [id number] [address] [place] [address] Jun, Adjustment disorder with dep ressed mood F43.21 and Bipolar 1 disorder, manic, mild F31.11 [place] [address] [facility] [id number] [address] [place] [phone] Jun, Adjustment disorder with dep ressed mood F43.21 ; Bipolar 1 disorder, manic, mild F31.11 and Anxiety, generalized F41.1 [place] [address] [facility] [id number] [address] [place] [phone] Jun, Normal in second t rimester Z34.92 ; 18 weeks gestation of Z3A.18 and Encounter for immunization Z23 [place] [address] [place] [id number] [address] [place] [phone] 07 Jun, 2016 Normal in first tr imester Z34.91 [place] [address] [address] May, care in second trim carlos Z34.92 [place] [address] [place] [id number] [address] [place] [phone] May, [place] [address] [place] [id number] [address] [place] [phone] May, [place] [address] [place] [id number] [address] [place] [phone] May, Major depressive disorder, r ecurrent, moderate F33.1 [place] [address] [facility] [id number] [address] [place] [address] 10 May, 2016 Normal in first tr imester Z34.91 ; Pap smear for cervical cancer screening Z12.4 ; Screen for STD (sexually transmitted disease) Z11.3 and 12 weeks gestation of Z3A.12 [facility] [address] [facility] [id number] [address] [place] [id number] 08 May, 2016 12 weeks gestation of pregna ncy Z3A.12 ; Unspecified abdominal pain R10.9 and Other specified related conditions, unspecified trimester O26.899 [facility] [address] [facility] [id number] [address] [place] [address] Apr, [facility] [address] [facility] [id number] [address] [place] [address] Apr, [facility] [address] [facility] [id number] [address] [place] [phone] February, [facility] [address] [facility] [id number] [address] [place] [phone] February, Bipolar 1 disorder, manic, m ild F31.11 and Adjustment disorder with depressed mood F43.21 [place] [address] [facility] [id number] [address] [place] [phone] Dec, Major depressive disorder, s ken episode, moderate F32.1 ; Adjustment disorder with depressed mood F43.21 and Bipolar 1 disorder, manic, mild F31.11 [place] [address] [place] [id number] [address] [place] [phone] Dec, Adjustment disorder with dep ressed mood F43.21 ; Major depressive disorder, single episode, moderate F32.1 and Bipolar 1 disorder, manic, mild F31.11 [place] [address] [facility] [id number] [address] [place] [address] Dec, Right hand pain M79.641 [place] [address] [facility] [id number] [address] [place] [address] Dec, Major depressive disorder, s ken episode, moderate F32.1 and Adjustment disorder with depressed mood F43.21 [place] [address] [facility] [id number] [address] [place] [phone] Nov, Major depressive disorder, s ken episode, moderate F32.1 [facility] [address] [facility] [id number] [address] [place] [address] Nov, Adjustment disorder with dep ressed mood F43.21 ; Bipolar 1 disorder, manic, mild F31.11 and Adjustment disorder with anxiety F43.22 [place] [address] [address] Oct, [place] [address] [address] Oct, Encounter for counseling reg arding contraception Z30.9 ; Initiation of OCP (BCP) Z30.011 ; Routine screening for STI (sexually transmitted infection) Z11.3 and Dysmenorrhea N94.6 [place] [address] [address] Sep, Acute upper respiratory infe ction, unspecified J06.9 ; Other viral agents as the cause of diseases classified elsewhere B97.89 and Post-nasal drip R09.82 [place] [address] [address] Aug, Depressive disorder, not els ewhere classified 311 [place] [address] [address] Jul, Depression, major, recurrent , moderate F33.1 [place] [address] [address] Jun, Major depressive disorder, r ecurrent episode, moderate 296.32 [place] [address] [address] 04 Mar, 2015 Major depression, recurrent 296.30 [place] [address] [address] 14 Jan, 2015 [place] [address] [address] Jan, [place] [address] [address] Dec, [place] [address] [address] Dec, [place] [address] [address] Nov, [facility] [address] [id number] [address] [place] [address], [place] [address] Nov, [facility] [address] [id number] [address] [place] [address], [place] [address] Oct, [facility] [address] [id number] [address] [place] [address], [place] [address] Oct, [facility] [address] [id number] [address] [place] [address], [place] [address] Sep, [facility] [address] [id number] [address] [place] [address], [place] [address] Sep, [facility] [address] [id number] [address] [place] [address], [place] [address] Sep, [facility] [address] [id number] [address] [place] [address], [place] [address] Sep, [facility] [address] [id number] [address] [place] [address], [place] [address] Sep, [facility] [address] [id number] [address] [place] [address], [place] [address] Sep, [facility] [address] [id number] [address] [place] [address], [place] [address] Aug, [facility] [address] [id number] [address] [place] [address], [place] [address] Aug, [facility] [address] [id number] [address] [place] [phone] Aug, [facility] [address] [id number] [address] [place] [address], [place] [address] Aug, [facility] [address] [id number] [address] [place] [address], [place] [address] Jul, [facility] [address] [id number] [address] [place] [address], [place] [address] Jul, [facility] [address] [id number] [address] [place] [address], [place] [address] 16 Jul, 2014 [facility] [address] [id number] [address] [place] [address], [place] [address] 16 Jul, 2014 [facility] [address] [id number] [address] [place] [address], [place] [address] 17 Jun, 2014 [facility] [address] [id number] [address] [place] [address], [place] [address] 17 Jun, 2014 [facility] [address] [id number] [address] [place] [address], [place] [address] 17 Jun, 2014 [facility] [address] [id number] [address] [place] [address], [place] [address] Jun, [facility] [address] [id number] [address] [place] [address], [place] [address] Apr, [facility] [address] [id number] [address] [place] [address], [place] [address] Apr, [facility] [address] [id number] [address] [place] [address], [place] [address] Mar, [facility] [address] [id number] [address] [place] [address], [place] [address] Mar, [facility] [address] [id number] [address] [place] [address], [place] [address] Mar, [facility] [address] [id number] [address] [place] [address], [place] [address] Mar, [facility] [address] [id number] [address] [place] [address], [place] [address] February, [facility] [address] [id number] [address] [place] [address], [place] [address] February, [facility] [address] [id number] [address] [place] [address], [place] [address] February, [facility] [address] [id number] [address] [place] [address] [address] February, [facility] [address] [id number] [address] [place] [address], [place] [address] February, [facility] [address] [id number] [address] [place] [address], [place] [address] February, [facility] [address] [id number] [address] [place] [address], [place] [address] February, [facility] [address] [id number] [address] [place] [address], [place] [address] Jan, [facility] [address] [id number] [address] [place] [address], [place] [address] Jan, [facility] [address] [id number] [address] [place] [address], [place] [address] Jan, [facility] [address] [id number] [address] [place] [address], [place] [address] Jan, [facility] [address] [id number] [address] [place] [address], [place] [address] Jan, [facility] [address] [id number] [address] [place] [address], [place] [address] Jan, [facility] [address] [id number] [address] [place] [address], [place] [address] Jan, [facility] [address] [id number] [address] [place] [address], [place] [address] Jan, [facility] [address] [id number] [address] [place] [address], [place] [address] Oct, [facility] [address] [id number] [address] [place] [address], [place] [address] Oct, [facility] [address] [id number] [address] [place] [address], [place] [address] Sep, [facility] [address] [id number] [address] [place] [address], [place] [address] Sep, [facility] [address] [id number] [address] [place] [address], [place] [address] 11 Jun, 2013 [facility] [address] [id number] [address] [place] [address], [place] [address] 04 Jun, 2013 [facility] [address] [id number] [address] [place] [address], [place] [address] Oct, [facility] [address] [id number] [address] [place] [address], [place] [address] Sep, [facility] [address] [id number] [address] [place] [address], [place] [address] Sep, [facility] [address] [id number] [address] [place] [address], [place] [id number] 26 Jun, 2012 [facility] [address] [id number] [address] [place] [address], [place] [id number] 25 Jun, 2012 [facility] [address] [id number] [address] [place] [address], [place] [id number] 24 Jun, 2012 [facility] [address] [id number] [address] [place] [address], [place] [id number] 20 Jun, 2012 [facility] [address] [id number] [address] [place] [address], [place] [id number] 20 Jun, 2012 [facility] [address] [id number] [address] [place] [address], [place] [id number] 05 Jun, 2012 [facility] [address] [id number] [address] [place] [address], [place] [address] Apr, [facility] [address] [id number] [address] [place] [address], [place] [id number] Mar, [facility] [address] [id number] [address] [place] [address], [place] [id number] Mar, [facility] [address] [id number] [address] [place] [address], [place] [address] Dec, [facility] [address] [id number] [address] [place] [address], [place] [address] Oct, [facility] [address] [id number] [address] [place] [id number] Aug, [facility] [address] [id number] [address] [place] [id number] Aug, [facility] [address] [id number] [address] [place] [id number] Aug, [facility] [address] [id number] [address] [place] [id number] Aug, [facility] [address] [id number] [address] [place] [id number] Aug, [facility] [address] [id number] [address] [place] [id number] Jul, [facility] [address] [id number] [address] [place] [id number] Jul, [facility] [address] [id number] [address] [place] [address] [id number] Jun, [facility] [address] [id number] [address] [place] [phone] Jul, [facility] [address] [id number] [address] [place] [phone] Aug, [facility] [address] [id number] [address] [place] [id number] Aug, [facility] [address] [id number] [address] [place] [phone] Oct, IMMUNIZATIONS No Known Immunizations SOCIAL HISTORY Never Assessed REASON FOR VISIT PLAN OF CARE VITAL SIGNS MEDICATIONS Unknown Medications RESULTS No Results PROCEDURES Procedure Date Ordered Result Body Site PSYTX PT&/FAMILY 45 MINUTES Aug 22, 2014 INSTRUCTIONS MEDICATIONS ADMINISTERED No Known [...]
--- OUTSIDE RECORDS SUMMARY | 2020-02-12 11:44 | XMS REPORT | Continuity of Care Document ---
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 VALENTNI MD Ot S50.861A INSECT BITE (NONVENOMOUS) OF RIGHT FOREA 09/05/2016 OSVALDO VALENTIN MD Ot Z3A.26 26 WEEKS GESTATION OF 09/05/2016 OSVALDO VALENTIN MD Ot Z87.891 PERSONAL HISTORY OF NICOTINE DEPENDENCE 09/07/2016 KOLE LAMB MD Ot O36.8120 DECREASED MOVEMENTS, SECOND TRIMES 09/07/2016 KOLE LAMB MD Ot Z3A.27 27 WEEKS GESTATION OF 09/10/2016 KOLE LAMB MD, Ot O36.8120 DECREASED MOVEMENTS, SECOND TRIMES 09/10/2016 KOLE LAMB MD, Ot Z3A.27 27 WEEKS GESTATION OF 09/10/2016 TATIANA WEI MD, Ot O99.810 ABNORMAL GLUCOSE COMPLICATING 09/16/2016 TATIANA WEI MD, Ot Z03. 73 ENCOUNTER FOR SUSPECTED ANOMALY RU 09/23/2016 TATIANA WEI MD, Ot O99.810 ABNORMAL GLUCOSE COMPLICATING 10/21/2016 TATIANA WEI MD, Ot 649. 63 UTERINE SIZE DATE DISCREPANCY, ANTEPARTU 10/21/2016 MARISELA SCRUGGS DOA K Ot Z36 ENCOUNTER [...] .9 UNSPECIFIED ABDOMINAL PAIN 11/04/2016 KOLE LAMB MD, Ot Z3A.35 35 WEEKS GESTATION OF 11/05/2016 [...] Ot J45.998 OTHER ASTHMA 04/03/2017 TACOS KAUR DO, Ot N39.0 URINARY TRACT INFECTION, SITE NOT SPECIF 04/03/2017 TACOS KAUR DO, Ot R10.33 PERIUMBILICAL PAIN 04/03/2017 TACOS KAUR DO, Ot Z87.891 PERSONAL HISTORY OF NICOTINE DEPENDENCE 04/07/2017 TACOS KAUR DO Ot J45.998 OTHER ASTHMA 04/07/2017 TACOS KAUR DO Ot N39.0 URINARY TRACT INFECTION, SITE NOT SPECIF 04/07/2017 TACOS KAUR DO Ot R10.33 PERIUMBILICAL PAIN 04/07/2017 TACOS KAUR DO Ot Z87.891 PERSONAL HISTORY OF NICOTINE DEPENDENCE 05/01/2017 SANJUANA LINCOLN, TATIANA Arevalo Ot 649. 63 UTERINE SIZE DATE DISCREPANCY, ANTEPARTU 05/01/2017 SHEBA CAMPOS KACEY K Ot Z36 ENCOUNTER FOR SCREENING OF MOT 05/01/2017 SHEBA CAMPOS KACEY K Ot Z3A.12 12 WEEKS GESTATION OF 05/01/2017 SCRUGGS DO KACEY K Ot Z36 ENCOUNTER FOR SCREENING OF MOT 05/01/2017 SHEBA CAMPOS KACEY K Ot Z3A.15 15 WEEKS GESTATION OF 05/01/2017 TATIANA WEI MD Ot Z03. 73 ENCOUNTER FOR SUSPECTED ANOMALY RU 05/01/2017 TATIANA WEI MD, Ot O99.810 ABNORMAL GLUCOSE COMPLICATING 05/01/2017 GOL BLOOM APRN Ot R30 .0 DYSURIA 05/02/2017 GLO BLOOM APRN Ot R30 .0 DYSURIA 05/14/2017 TATIANA WEI MD, Ot 649. 63 UTERINE SIZE DATE DISCREPANCY, ANTEPARTU 05/14/2017 SCRUGGS DO KACEY K Ot Z36 ENCOUNTER FOR SCREENING OF MOT 05/14/2017 SHEBA CAMPOS KACEY K Ot Z3A.12 12 WEEKS GESTATION OF 05/14/2017 SHEBA CAMPOS KACEY K Ot Z36 ENCOUNTER FOR SCREENING OF MOT 05/14/2017 SHEBA CAMPOS KACEY K Ot Z3A.15 15 WEEKS GESTATION OF 05/14/2017 TATIANA WEI MD Ot Z03. 73 ENCOUNTER FOR SUSPECTED ANOMALY RU 05/14/2017 TATIANA WEI MD, Ot O99.810 ABNORMAL GLUCOSE COMPLICATING 05/14/2017 GLO BLOOM APRN Ot F32 .9 MAJOR DEPRESSIVE DISORDER, SINGLE EPISOD 05/14/2017 GLO BLOOM APRN Ot F41 .9 ANXIETY DISORDER, UNSPECIFIED 05/14/2017 GLO BLOOM APRN Ot J02 .9 ACUTE PHARYNGITIS, UNSPECIFIED 05/14/2017 GLO BLOOM APRN Ot J45.909 UNSPECIFIED ASTHMA, UNCOMPLICATED 05/14/2017 GLO BLOOM APRN Ot K21 .9 GASTRO-ESOPHAGEAL REFLUX DISEASE WITHOUT 05/14/2017 GLO BLOOM APRN Ot Z87.891 PERSONAL HISTORY OF NICOTINE DEPENDENCE 05/16/2017 GLO BLOOM APRN Ot F32 .9 MAJOR DEPRESSIVE DISORDER, SINGLE EPISOD 05/16/2017 GLO BLOOM APRN Ot F41 .9 ANXIETY DISORDER, UNSPECIFIED 05/16/2017 GLO BLOOM APRN Ot J02 .9 ACUTE PHARYNGITIS, UNSPECIFIED 05/16/2017 GLO BLOOM APRN Ot J45.909 UNSPECIFIED ASTHMA, UNCOMPLICATED 05/16/2017 GLO BLOOM APRN Ot K21 .9 GASTRO-ESOPHAGEAL [...] K21. 9 GASTRO-ESOPHAGEAL REFLUX DISEASE WITHOUT 06/17/2017 BRENDA KIRBY MD Ot R07. 89 OTHER CHEST PAIN 06/17/2017 BRENDA KIRBY MD J Ot Z87.440 PERSONAL HISTORY OF URINARY (TRACT) INFE 06/17/2017 BRENDA KIRBY MD J Ot Z87.891 PERSONAL HISTORY OF NICOTINE DEPENDENCE 06/19/2017 GIOVANNA KIRBY MDUS J Ot F32. 9 MAJOR DEPRESSIVE DISORDER, SINGLE EPISOD 06/19/2017 GIOVANNA KIRBY MDUS J Ot F41. 0 PANIC DISORDER WITHOUT AGORAPHOBIA 06/19/2017 GIOVANNA KIRBY MDUS J Ot J45.909 UNSPECIFIED ASTHMA, UNCOMPLICATED 06/19/2017 GIOVANNA KIRBY MDUS J Ot K21. 9 GASTRO-ESOPHAGEAL REFLUX DISEASE WITHOUT 06/19/2017 BRENDA KIRBY MD J Ot R07. 89 OTHER CHEST PAIN 06/19/2017 BRENDA KIRBY MD J Ot Z87.440 PERSONAL HISTORY OF URINARY (TRACT) INFE 06/19/2017 BRENDA KIRBY MD J Ot Z87.891 PERSONAL HISTORY OF NICOTINE DEPENDENCE 06/19/2017 BRENDA KIRBY MD J Ot F32. 9 MAJOR DEPRESSIVE DISORDER, SINGLE EPISOD 06/19/2017 GIOVANNA KIRBY MDUS J Ot F41. 0 PANIC DISORDER WITHOUT AGORAPHOBIA 06/19/2017 GIOVANNA KIRBY MDUS J Ot J45.909 UNSPECIFIED ASTHMA, UNCOMPLICATED 06/19/2017 GIOVANNA KIRBY MDUS J Ot K21. 9 [...] GESTATION OF 07/14/2017 TATIANA WEI MD Ot Z03. 73 ENCOUNTER [...] 15 WEEKS GESTATION OF 09/14/2017 TATIANA WEI MD Ot Z03. 73 ENCOUNTER [...] .9 ANXIETY DISORDER, UNSPECIFIED 09/20/2017 GLO BLOOM APRN Ot J45.909 UNSPECIFIED ASTHMA, UNCOMPLICATED 09/20/2017 GLO BLOOM APRN Ot K21 .9 GASTRO-ESOPHAGEAL [...] .9 ANXIETY DISORDER, UNSPECIFIED 10/23/2017 GLO BLOOM ADULT PSYCHIATRIST Ot J45.909 UNSPECIFIED ASTHMA, UNCOMPLICATED 10/23/2017 GLO BLOOM ADULT PSYCHIATRIST Ot K05.20 AGGRESSIVE PERIODONTITIS, UNSPECIFIED 10/23/2017 GLO BLOOM ADULT PSYCHIATRIST Ot K08.89 OTHER SPECIFIED DISORDERS OF TEETH AND S 10/23/2017 GLO BLOOM ADULT PSYCHIATRIST Ot K21 .9 GASTRO-ESOPHAGEAL REFLUX DISEASE WITHOUT 10/23/2017 GLO BLOOM ADULT PSYCHIATRIST Ot Z87.440 PERSONAL HISTORY OF URINARY (TRACT) INFE 10/30/2017 RICHIE LINCOLN, EMILEE Cortes Ot F41.9 ANXIETY DISORDER, UNSPECIFIED 10/30/2017 EMILEE QUIROZ MD Ot J45.909 UNSPECIFIED ASTHMA, UNCOMPLICATED 10/30/2017 EMILEE QUIROZ MD Ot K21.9 GASTRO-ESOPHAGEAL REFLUX DISEASE WITHOUT 10/30/2017 EMILEE QUIROZ MD Ot R10.13 EPIGASTRIC PAIN 10/30/2017 RICHIE LINCOLN, [...] Z3A.15 15 WEEKS GESTATION OF 12/07/2017 TATIANA WIE MD Ot Z03. 73 ENCOUNTER FOR SUSPECTED ANOMALY RU 12/07/2017 TATIANA WEI MD Ot O99.810 ABNORMAL GLUCOSE COMPLICATING 12/07/2017 KOFI LINCOLN, BRENDA Arevalo Ot F17.210 NICOTINE DEPENDENCE, CIGARETTES, UNCOMPL 12/07/2017 KOFI LINCOLN, BRENDA Arevalo Ot F41. 9 ANXIETY DISORDER, UNSPECIFIED 12/07/2017 KOFI LINCOLN, BRENDA Arevalo Ot J45.909 UNSPECIFIED ASTHMA, UNCOMPLICATED 12/07/2017 BRENDA [...] Z87.891 PERSONAL HISTORY OF NICOTINE DEPENDENCE 01/05/2018 RICHIE LINCOLN, EMILEE Cortes Ot F17.210 NICOTINE DEPENDENCE, CIGARETTES, UNCOMPL 01/05/2018 [...] PERSONAL HISTORY OF URINARY (TRACT) INFE 01/07/2018 RICHIE LINCOLN, EMILEE Cortes Ot F17.210 NICOTINE DEPENDENCE, CIGARETTES, UNCOMPL 01/07/2018 RICIHE LINCOLN, EMILEE Cortes Ot F41.9 ANXIETY DISORDER, UNSPECIFIED 01/07/2018 RICHIE [...] 15 WEEKS GESTATION OF 03/14/2018 SANJUANA LINCOLN, TATIAAN Arevalo Ot Z03. 73 ENCOUNTER FOR SUSPECTED ANOMALY RU 03/14/2018 SANJUANA LINCOLN, TATIANA Arevalo Ot O99.810 ABNORMAL GLUCOSE COMPLICATING 03/14/2018 GLO BLOOM APRN Ot F41 .9 ANXIETY DISORDER, UNSPECIFIED 03/14/2018 GLO BLOOM ADULT PSYCHIATRIST Ot J45.998 OTHER ASTHMA 03/14/2018 GLO BLOOM ADULT PSYCHIATRIST Ot K21 .9 GASTRO-ESOPHAGEAL REFLUX DISEASE WITHOUT 03/14/2018 GLO BLOOM ADULT PSYCHIATRIST Ot N39 .0 URINARY TRACT INFECTION, SITE NOT SPECIF 03/14/2018 GLO BLOOM APRN Ot R30 .0 DYSURIA 03/14/2018 GLO BLOOM ADULT PSYCHIATRIST Ot Z87.891 PERSONAL HISTORY OF NICOTINE DEPENDENCE 03/20/2018 GLO BLOOM ADULT PSYCHIATRIST Ot F41 .9 ANXIETY DISORDER, UNSPECIFIED 03/20/2018 GLO BLOOM ADULT PSYCHIATRIST Ot J45.998 OTHER ASTHMA 03/20/2018 GLO BLOOM ADULT PSYCHIATRIST Ot K21 .9 GASTRO-ESOPHAGEAL REFLUX DISEASE WITHOUT 03/20/2018 GLO BLOOM ADULT PSYCHIATRIST Ot N39 .0 URINARY TRACT INFECTION, SITE NOT SPECIF 03/20/2018 GLO BLOOM ADULT PSYCHIATRIST Ot R30 .0 DYSURIA 03/20/2018 GLO BLOOM ADULT PSYCHIATRIST Ot Z87.891 PERSONAL HISTORY OF NICOTINE DEPENDENCE 04/19/2018 GLO BLOOM ADULT PSYCHIATRIST Ot F41 .9 ANXIETY DISORDER, UNSPECIFIED 04/19/2018 GLO BLOOM APRN Ot J45.998 OTHER ASTHMA 04/19/2018 GLO BLOOM ADULT PSYCHIATRIST Ot K21 .9 GASTRO-ESOPHAGEAL REFLUX DISEASE WITHOUT 04/19/2018 GLO BLOOM ADULT PSYCHIATRIST Ot R11 .0 NAUSEA 04/19/2018 GLO BLOOM ADULT PSYCHIATRIST Ot R42 DIZZINESS AND GIDDINESS 04/21/2018 GLO BLOOM ADULT PSYCHIATRIST Ot F41 .9 ANXIETY DISORDER, UNSPECIFIED 04/21/2018 GLO BLOOM ADULT PSYCHIATRIST Ot J45.998 OTHER ASTHMA 04/21/2018 GLO BLOOM ADULT PSYCHIATRIST Ot K21 .9 GASTRO-ESOPHAGEAL REFLUX DISEASE WITHOUT 04/21/2018 GLO BLOOM ADULT PSYCHIATRIST Ot R11 .0 NAUSEA 04/21/2018 GLO BLOOM ADULT PSYCHIATRIST Ot R42 DIZZINESS AND GIDDINESS 04/21/2018 GLO BLOOM ADULT PSYCHIATRIST Ot F41 .9 ANXIETY DISORDER, UNSPECIFIED 04/21/2018 GLO BLOOM ADULT PSYCHIATRIST Ot J45.998 OTHER ASTHMA 04/21/2018 GLO BLOOM ADULT PSYCHIATRIST Ot K21 .9 GASTRO-ESOPHAGEAL REFLUX DISEASE WITHOUT 04/21/2018 GLO BLOOM ADULT PSYCHIATRIST Ot R11 .0 NAUSEA 04/21/2018 GLO BLOOM ADULT PSYCHIATRIST Ot R42 DIZZINESS AND GIDDINESS 04/26/2018 JAMEY ROMAN L Ot E16.2 HYPOGLYCEMIA, UNSPECIFIED 04/26/2018 JAMEY ROMAN [...] OF NICOTINE DEPENDENCE 05/17/2018 RICHIE LINCOLN, EMILEE Cortes Ot F41.9 ANXIETY DISORDER, UNSPECIFIED 05/17/2018 EMILEE QUIROZ MD Ot J45.909 UNSPECIFIED ASTHMA, UNCOMPLICATED 05/17/2018 EMILEE QUIROZ MD Ot K21.9 GASTRO-ESOPHAGEAL REFLUX DISEASE WITHOUT 05/17/2018 EMILEE UQIROZ MD Ot N39.0 URINARY TRACT INFECTION, SITE [...] F41.0 PANIC DISORDER [EPISODIC PAROXYSMAL ANXI 06/23/2018 BERNOTCYRILIS Ot J00 ACUTE NASOPHARYNGITIS [COMMON COLD] 06/23/2018 CYRIL ONEALIS Ot J02.9 ACUTE PHARYNGITIS, UNSPECIFIED 06/23/2018 CYRIL ONEALIS Ot J45.909 UNSPECIFIED ASTHMA, UNCOMPLICATED 06/23/2018 CYRIL ONEALIS Ot K21.9 GASTRO-ESOPHAGEAL REFLUX DISEASE WITHOUT 06/23/2018 CYRIL ONEALIS Ot Z82.49 FAMILY HX OF ISCHEM HEART DIS AND OTH DI 06/23/2018 CYRIL ONEALIS Ot Z87.440 PERSONAL HISTORY OF URINARY (TRACT) INFE 06/23/2018 CYRIL ONEALIS Ot Z87.891 PERSONAL HISTORY OF NICOTINE DEPENDENCE 06/25/2018 BERNGULSHAN COONEY Ot E11.9 TYPE 2 DIABETES MELLITUS WITHOUT COMPLIC 06/25/2018 BERNCYRIL COONEYIS Ot F41.0 PANIC DISORDER [EPISODIC PAROXYSMAL ANXI 06/25/2018 BERNCYRIL COONEYIS Ot J00 ACUTE NASOPHARYNGITIS [COMMON COLD] 06/25/2018 BERNGULSHAN COONEY Ot J02.9 ACUTE PHARYNGITIS, UNSPECIFIED 06/25/2018 BERNCYRIL COONEYIS Ot J45.909 UNSPECIFIED ASTHMA, UNCOMPLICATED 06/25/2018 BERNGULSHAN COONEY Ot K21.9 GASTRO-ESOPHAGEAL REFLUX DISEASE WITHOUT 06/25/2018 GULSHAN ONEAL Ot Z82.49 FAMILY HX OF ISCHEM HEART DIS AND OTH DI 06/25/2018 GULSHAN ONEAL Ot Z87.440 PERSONAL HISTORY OF [...] K21. 9 GASTRO-ESOPHAGEAL REFLUX DISEASE WITHOUT 08/05/2018 GIOVANNA KIRBY MDUS J Ot N39. 0 URINARY TRACT INFECTION, SITE NOT SPECIF 08/05/2018 GIOVANNA KIRBY MDUS J Ot R30. 0 DYSURIA 08/10/2018 GIOVANNA KIRBY MDUS J Ot E11. 9 TYPE 2 DIABETES MELLITUS WITHOUT COMPLIC 08/10/2018 GIOVANNA KIRBY MDUS J Ot F17.210 NICOTINE DEPENDENCE, CIGARETTES, UNCOMPL 08/10/2018 GIOVANNA KIRBY MDUS J Ot F41. 0 PANIC DISORDER [EPISODIC PAROXYSMAL ANXI 08/10/2018 GIOVANNA KIRBY MDUS J Ot J45.909 UNSPECIFIED ASTHMA, UNCOMPLICATED 08/10/2018 GIOVANNA KIRBY MDUS J Ot K21. 9 GASTRO-ESOPHAGEAL REFLUX DISEASE WITHOUT 08/10/2018 BRENDA KIRBY MD Ot N39. 0 URINARY TRACT INFECTION, SITE NOT SPECIF 08/10/2018 BRENDA KIRBY MD Ot R30. 0 DYSURIA 08/11/2018 OSVALDO VALENTIN MD, Ot E11.9 TYPE 2 DIABETES MELLITUS WITHOUT COMPLIC 08/11/2018 OSVALDO VALENTIN MD, Ot F41.9 ANXIETY DISORDER, UNSPECIFIED 08/11/2018 OSVALDO VALENTIN MD, Ot J45.909 UNSPECIFIED ASTHMA, UNCOMPLICATED 08/11/2018 OSVALDO VALENTIN MD, Ot K21.9 GASTRO-ESOPHAGEAL REFLUX DISEASE WITHOUT 08/11/2018 OSVALDO VALENTIN MD, Ot N39.0 URINARY TRACT INFECTION, SITE NOT SPECIF 08/11/2018 OSVALDO VALENTIN MD Ot R10.30 LOWER ABDOMINAL PAIN, UNSPECIFIED 08/11/2018 OSVALDO VALENTIN MD Ot Z87.440 PERSONAL HISTORY OF URINARY (TRACT) INFE 08/11/2018 OSVALDO VALENTIN MD Ot Z87.891 PERSONAL HISTORY OF NICOTINE DEPENDENCE 08/13/2018 OSVALDO VALENTIN MD, Ot E11.9 TYPE 2 DIABETES MELLITUS WITHOUT COMPLIC 08/13/2018 OSVALDO VALENTIN MD, Ot F41.9 ANXIETY DISORDER, UNSPECIFIED 08/13/2018 OSVALDO VALENTIN MD, Ot J45.909 UNSPECIFIED ASTHMA, UNCOMPLICATED 08/13/2018 OSVALDO VALENTIN MD, Ot K21.9 GASTRO-ESOPHAGEAL REFLUX DISEASE WITHOUT 08/13/2018 OSVALDO VALENTIN MD Ot N39.0 URINARY TRACT INFECTION, SITE NOT SPECIF 08/13/2018 OSVALDO VALENTIN MD Ot R10.30 LOWER ABDOMINAL PAIN, UNSPECIFIED 08/13/2018 OSVALDO VALENTIN MD Ot Z87.440 PERSONAL HISTORY OF URINARY (TRACT) INFE 08/13/2018 OSVALDO VALENTIN MD, Ot Z87.891 PERSONAL HISTORY OF NICOTINE DEPENDENCE 12/23/2018 Ot 296.80 BIP OLAR DISORDER, UNSPECIFIED 12/23/2018 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 APRN Ot V22.1 SUPERVIS OTH NORMAL PREG 12/23/2018 TATIANA WEI MD Ot 649. 63 UTERINE SIZE DATE DISCREPANCY, ANTEPARTU 12/23/2018 SHEBA CAMPOS KACEY K Ot Z36 ENCOUNTER FOR SCREENING OF MOT 12/23/2018 SHEBA CAMPOS KACEY K Ot Z3A.12 12 WEEKS GESTATION OF 12/23/2018 SHEBA CAMPOS KACEY K Ot Z36 ENCOUNTER FOR SCREENING OF MOT 12/23/2018 SHEBA CAMPOS KACEY K Ot Z3A.15 15 [...] ENCOUNTER FOR SCREENING OF MOT 12/23/2018 SHEBA CAMPOS KACEY K Ot Z3A.12 12 WEEKS GESTATION OF 12/23/2018 SHEBA CAMPOS KACEY K Ot Z36 ENCOUNTER FOR SCREENING OF MOT 12/23/2018 SHEBA CAMPOS KACEY K Ot Z3A.15 15 [...] J45.909 UNSPECIFIED ASTHMA, UNCOMPLICATED 05/31/2019 OSVALDO VALENTIN MD Ot K21.9 GASTRO-ESOPHAGEAL REFLUX DISEASE WITHOUT 05/31/2019 OSVALDO VALENTIN MD Ot R50.9 FEVER, UNSPECIFIED 05/31/2019 OSVALDO VALENTIN MD Ot Z77.22 CNTCT W [...] J45.909 UNSPECIFIED ASTHMA, UNCOMPLICATED 06/03/2019 OSVALDO VALENTIN MD, Ot K21.9 GASTRO-ESOPHAGEAL REFLUX DISEASE WITHOUT 06/03/2019 [...] APRN Ot J45.909 UNSPECIFIED ASTHMA, UNCOMPLICATED 09/25/2019 BLOOM, PETER J ADULT PSYCHIATRIST Ot K21 .9 GASTRO-ESOPHAGEAL REFLUX DISEASE WITHOUT 09/25/2019 GLO BLOOM APRN Ot R07.81 PLEURODYNIA 09/25/2019 GLO BLOOM APRN Ot Y04.2XXA ASSLT BY STRIKE AGNST OR BUMPED INTO BY 09/25/2019 GLO BLOOM APRN Ot Z87.440 PERSONAL HISTORY OF URINARY (TRACT) INFE 09/25/2019 GLO BLOOM APRN Ot Z87.891 PERSONAL HISTORY OF NICOTINE DEPENDENCE 12/14/2019 Johnny Cleaning W 780.60 FEVER, UNSPECIFIED 12/14/2019 Howayek, Johnny W 784.0 HEADACHE 12/14/2019 Howlyndseyek, Johnny W 786.2 COUGH 12/14/2019 Howto, Johnny W R05 COUGH 12/14/2019 Howayek, Johnny W R50.9 FEVER, UNSPECIFIED 12/14/2019 Howto, Johnny W R51 HEADACHE 01/20/2020 BRENDA KIRBY MD Ot K59. 03 DRUG INDUCED CONSTIPATION 01/20/2020 BRENDA KIRBY MD J Ot N73. 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 2 PELVIC AND PERINEAL PAIN 01/20/2020 BRENDA KIRBY MD J Ot Z3A. 08 8 WEEKS GESTATION OF 01/20/2020 BRENDA KIRBY MD Ot Z87.891 PERSONAL HISTORY OF NICOTINE DEPENDENCE 01/22/2020 BRENDA KIRBY MD Ot K59. 03 DRUG INDUCED CONSTIPATION 01/22/2020 BRENDA KIRBY MD J Ot N73. 9 FEMALE PELVIC INFLAMMATORY DISEASE, UNSP 01/22/2020 BRENDA KIRBY MD J Ot R10. 2 PELVIC AND PERINEAL PAIN 01/22/2020 BRENDA KIRBY MD J Ot Z3A. 08 8 WEEKS GESTATION OF 01/22/2020 BRENDA KIRBY MD J Ot Z87.891 PERSONAL HISTORY OF NICOTINE DEPENDENCE 02/07/2020 GLO BLOOM APRN Ot F41 .9 ANXIETY DISORDER, UNSPECIFIED 02/07/2020 GLO BLOOM APRN Ot J45.909 UNSPECIFIED ASTHMA, UNCOMPLICATED 02/07/2020 GLO BLOOM APRN Ot O23.41 UNSP INFCT OF URINARY TRACT IN 02/07/2020 GLO BLOOM APRN Ot O26.891 OTH RELATED CONDITIONS, FIRST 02/07/2020 GLO BLOOM APRN Ot O99.341 OTH MENTAL DISORDERS COMPLICATING PREGNA 02/07/2020 GLO BLOOM ADULT PSYCHIATRIST Ot O99.511 DISEASES OF THE RESP SYS COMP , 02/07/2020 GLO BLOOM APRN Ot Z3A.10 10 WEEKS GESTATION OF 02/11/2020 GLO BLOOM APRN Ot F41 .9 ANXIETY DISORDER, UNSPECIFIED 02/11/2020 GLO BLOOM APRN Ot J45.909 UNSPECIFIED ASTHMA, UNCOMPLICATED 02/11/2020 GLO BLOOM APRN Ot O23.41 UNSP INFCT OF URINARY TRACT IN 02/11/2020 GLO BLOOM APRN Ot O26.891 OTH RELATED CONDITIONS, FIRST 02/11/2020 GLO BLOOM APRN Ot O99.341 OTH MENTAL DISORDERS COMPLICATING PREGNA 02/11/2020 GLO BLOOM APRN Ot O99.511 DISEASES OF THE RESP SYS COMP , 02/11/2020 GLO BLOOM APRN Ot Z3A.10 10 WEEKS GESTATION OF Procedures Code Description [place] [address] US O B - EARLY <14 WEEKS 06/23/2013 77261 URIN E TEST (IN- HOUSE) 06/23/2013 35148 UA W / CULTURE IF INDICATED 06/23/2013 72.71 VACU UM EXT DEL W EPISIOT 01/24/2014 51169 PSYC H DIAGNOSTIC EVALUATION 01/28/2014 76238 PSYT X PT&/FAMILY 45 MINUTES 02/22/2014 24318 PSYC HO TESTING 1 HR W COMP 02/22/2014 32192 PSYT X PT&/FAMILY 30 MINUTES 04/01/2014 19451 PSYT X PT&/FAMILY 45 MINUTES 08/23/2014 67487 PSYT X PT&/FAMILY 45 MINUTES 08/29/2014 29721 PSYT X PT&/FAMILY 45 MINUTES 10/14/2014 40898 PSYT X PT&/FAMILY 45 MINUTES 10/21/2014 [id number] DI VISION OF FEMALE PERINEUM, EXTERNAL AP 11/28/[address] AINAGE OF AMNIOTIC [place], THERAP FROM POC 11/28/2016 [id number] DONNA LIVERY OF PRODUCTS OF CONCEPTION, EXTE 11/28/2016 [...] culture - 06/13/16 00:40 Bacterial urine culture [id number] NRG COLONY COUNT <10,000 NRG FTX;REPORTABLE NO [...] 01:3 5 Bacterial throat culture NBS NRG CBC With Differential/Platelet - 6 15:07 WBC 12.9 x10E3/uL 3.4-10.8 RBC 4.16 x10E6/uL 3.77-5.28 Hemoglobin 11.9 g/dL 11.1-15.9 Hematocrit 36.3 % 34.0-46.6 MCV 87 fL 79-97 MCH 28.6 pg 26.6-33.0 MCHC 32.8 g/dL 31.5-35.7 RDW 14.0 % 12.3-15.4 Platelets 309 x10E3/uL 150-379 Neutrophils 86 % Lymphs 11 % Monocytes 3 % Eos 0 % Basos 0 % Neutrophils (Absolute) 11.1 x10E3/uL 1.4 -7.0 Lymphs (Absolute) 1.4 x10E3/uL 0.7-3.1 Monocytes(Absolute) 0.4 x10E3/uL 0.1-0.9 Eos (Absolute) 0.0 x10E3/uL 0.0-0.4 Baso (Absolute) 0.0 x10E3/uL 0.0-0.2 Immature Granulocytes 0 % Immature Grans (Abs) 0.0 x10E3/uL 0.0-0. 1 Gest. Diabetes 1-Hr Screen - 08/28/16 15 :07 Gestational Diabetes Screen 171 mg/dL 65 -139 Capillary blood glucose measurement by g lucometer [...] culture - 11/04/16 02:10 Bacterial urine culture [id number] NRG COLONY COUNT >100,000/ML NRG Complete urinalysis [...] culture - 11/05/16 21:30 Bacterial urine culture [id number] NRG COLONY COUNT <10,000 NRG URINE CULTURE RESULTS PLUS NRG Strep Gp B Culture - 11/13/16 14:58 Strep Gp B Culture Positive Negative Complete blood count (CBC) with automate d [...] ABO+Rh group AP NRG Transfusion band number [id number] NRG Blood group antibody screen NEGATIVE NR [...] culture - 04/03/17 18:29 Bacterial urine culture [id number] NRG COLONY COUNT >100,000/ML NRG FTX;REPORTABLE SEE [...] culture - 09/26/17 17:35 Bacterial urine culture [id number] NRG COLONY COUNT >100,000/ML NRG FTX;REPORTABLE COAGULASE [...] culture - 12/07/17 19:10 Bacterial urine culture [id number] NRG COLONY COUNT >100,000/ML NRG FTX;REPORTABLE SENSITIVITY [...] culture - 12/20/17 17:58 Bacterial urine culture [id number] NRG COLONY COUNT <10,000 NRG FTX;REPORTABLE PROBABLE [...] culture - 05/17/18 13:52 Bacterial urine culture [id number] NRG COLONY COUNT >100,000/ML NRG FTX;REPORTABLE RML [...] culture - 08/05/18 12:03 Bacterial urine culture [id number] NRG COLONY COUNT . NRG FTX;REPORTABLE >100,000 CFU/ML OF MIXED BACTERIAL PHILL NRG FREE TEXT ENTRY 2 WITH A PREDOMINANCE OF E.COLI. F INAL W/ NRG FREE TEXT ENTRY 3 SUSCEPTIBILITY REPORTED 08-07-20 18, 1218 NRG L Sensitivity Panel - 08/05/18 12:03 Gentamicin susceptibility [...] NEGATIVE FOR A and B 0.00-0.0 0 TEST, SERUM (QUAL) - 01/17/20 17:06 HCG, TOTAL, QL POSITIVE See Note: Complete urinalysis with reflex to cultu re - 01/20/20 19:58 Urine color determination YELLOW NRG Urine clarity determination CLEAR NR G Urine pH measurement by test strip 5.5 5-9 Specific gravity of urine by test strip >= 1.016-1.022 Urine protein assay by test strip, semi-quantitative NEGATIVE NEGATIVE Urine glucose detection by automated test strip NE GATIVE NEGATIVE Erythrocytes detection in urine sediment by light micr oscopy TRACE-I NEGATIVE Urine ketones detection by automated test strip NE GATIVE NEGATIVE Urine nitrite detection by test strip NEGATIVE NEGATIVE Urine total bilirubin detection by test strip NEGA TIVE NEGATIVE Urine urobilinogen measurement by automated test strip (mass/volume) 0.2 mg/dL < = 1.0 Urine leukocyte esterase detection by dipstick NEG ATIVE NEGATIVE Automated urine sediment erythrocyte cou nt [...] in ur ine sediment by light microscopy RARE NRG Bacterial urine culture - 01/20/20 19:58 Bacterial urine culture [id number] NRG COLONY COUNT >100,000/ML NRG SUSCEPTIBILITY SUSCEPTIBILITY REPORTED 01/21 1340 NRG RAPID ID PRELIM RAPID ID TEST AT [facility] 01/21/20 12:35 NRG Dirithromycin susceptibility test by dis k diffusion - 01/20/20 19:58 Gentamicin susceptibility test by minimum inhibitory c oncentration <= NRG Trimethoprim/sulfamethoxazole susceptibi lity test by minimum inhibitoryconcentration > NRG Levofloxacin susceptibility test by minimum inhibitory concentration <= NRG Ampicillin susceptibility test by minimum inhibitory c oncentration > NRG Cefazolin susceptibility test by minimum inhibitory co ncentration <= NRG Ceftriaxone susceptibility test by minimum inhibitory concentration <= NRG Ciprofloxacin susceptibility test by minimum inhibitor y concentration <= NRG Meropenem susceptibility test by minimum inhibitory co ncentration <= NRG Nitrofurantoin susceptibility test by mi nimum inhibitory concentration 32 NRG Amoxicillin and clavulanate potassium susc MARIE = NRG Complete blood count (CBC) with automate d white blood cell (WBC) differential - 01/20/20 20:08 Blood leukocytes automated count (number/volume) 9.3 10*3/uL 4.3-11.0 Blood erythrocytes automated count (number/volume) 4.97 10*6/uL 4.35-5.85 Venous blood hemoglobin measurement (mass/volume) 14.0 g/dL 11.5-16.0 Blood hematocrit (volume fraction) 41 % 35-52 Automated erythrocyte mean corpuscular volume 83 [ foz_us] 80-99 Automated erythrocyte mean corpuscular h emoglobin (mass per erythrocyte) 28 pg 25-34 Automated erythrocyte mean corpuscular h emoglobin concentration measurement (mass/volume) 34 g/dL 32-36 Automated erythrocyte distribution width ratio 13. 6 % 10.0- 14.5 Automated blood platelet count (count/volume) 294 10*3/uL 130-400 Automated blood platelet mean volume measurement 11.0 [foz_us] 7.4-10.4 Automated blood neutrophils/100 leukocytes 65 % 42-75 Automated blood lymphocytes/100 leukocytes 23 % 12-44 Blood monocytes/100 leukocytes 8 % 0-12 Automated blood eosinophils/100 leukocytes 4 % 0-10 Automated blood basophils/100 leukocytes 1 % 0-10 Blood neutrophils automated count (number/volume) 6.0 10*3 1.8-7.8 Blood lymphocytes automated count (number/volume) 2.1 10*3 1.0-4.0 Blood monocytes automated count (number/volume) 0. 7 10*3 0.0-1.0 Automated eosinophil count 0.4 10*3/uL 0 .0-0.3 Automated blood basophil count (count/volume) 0.1 10*3/uL 0.0-0.1 Whole blood basic metabolic panel - 12/09 20:08 Serum or plasma sodium measurement (moles/volume) 139 mmol/L 135-145 Serum or plasma potassium measurement (moles/volume) 3.6 mmol/L 3.6-5.0 Serum or plasma chloride measurement (moles/volume) 104 mmol/L 98-107 Carbon dioxide 22 mmol/L 21-32 Serum or plasma anion gap determination (moles/volume) 13 mmol/L 5-14 Serum or plasma urea nitrogen measurement (mass/volume ) 11 mg/dL 7-18 Serum or plasma creatinine measurement (mass/volume) 0.78 mg/dL 0.60-1.30 Serum or plasma urea nitrogen/creatinine mass ratio 14 NRG Serum or plasma creatinine measurement w ith calculation of estimated glomerular filtration rate > NRG Serum or plasma glucose measurement (mass/volume) 55 mg/dL 70-105 Serum or plasma calcium measurement (mass/volume) 9.8 mg/dL 8.5-10.1 ABO+Rh group - 01/20/20 20:08 WRISTBAND NUMBER [id number] NRG ABO+Rh group AP NRG Serum or plasma choriogonadotropin measu rement (units/volume) - 01/20/20 20:08 Serum or plasma choriogonadotropin measurement (units/ volume) [id number] m[iU]/mL <5 Capillary blood glucose measurement by g lucometer (mass/volume) - 01/20/20 20:43 Capillary blood glucose measurement by glucometer (mas s/volume) 100 mg/dL 70-110 Complete blood count (CBC) with automate d white blood cell (WBC) differential - 02/05/20 20:49 Blood leukocytes automated count (number/volume) 9.1 10*3/uL 4.3-11.0 Blood erythrocytes automated count (number/volume) 4.59 10*6/uL 4.35-5.85 Venous blood hemoglobin measurement (mass/volume) 13.3 g/dL 11.5-16.0 Blood hematocrit (volume fraction) 38 % 35-52 Automated erythrocyte mean corpuscular volume 83 [ foz_us] 80-99 Automated erythrocyte mean corpuscular h emoglobin (mass per erythrocyte) 29 pg 25-34 Automated erythrocyte mean corpuscular h emoglobin concentration measurement (mass/volume) 35 g/dL 32-36 Automated erythrocyte distribution width ratio 14. 0 % 10.0- 14.5 Automated blood platelet count (count/volume) 270 10*3/uL 130-400 Automated blood platelet mean volume measurement 10.4 [foz_us] 7.4-10.4 Automated blood neutrophils/100 leukocytes 64 %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
--- NOTE | 2020-02-12 11:46 | ED GU-Female ---
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 She is 11 weeks . She also states that her boobs don't itch. She is concerned that this constellation of symptoms represents a miscarr iage. Timing/Duration: this morning Severity/Quality: moderate Location: unknown Radiation: none Activities at Onset: none Prior Genitourinary Problems: none Allergies and Home Medications Allergies Coded Allergies: No Known Drug Allergies (Unverified , 06/23/18) Home Medications Amoxicillin 500 Mg Capsule, 500 MG PO TID Prescribed by: OSVALDO VALENTIN on 05/31/19 2341 Azithromycin 250 Mg Tablet, 250 MG PO DAILY 2 tablets on 01/21/20 One tablet daily until gone Prescribed by: BRENDA KIRBY on 01/20/202101 Cefuroxime Axetil 250 Mg Tablet, 250 MG PO BID Prescribed by: GLO BLOOM on 02/05/202126 Cephalexin 500 Mg Capsule, 500 MG PO TID, (Reported) Hydroxyzine Pamoate 25 Mg Capsule, 25 MG PO Q6H PRN for ANXIETY Prescribed by: GLO BLOOM on 05/26/18 185 Nitrofurantoin Macrocrystal 100 Mg Capsule, 100 MG PO BID Prescribed by: BRENDA KIRBY on 08/05/18 1234 Phenazopyridine HCl 100 Mg Tablet, 100 MG PO TID, (Reported) Polyethylene Glycol 3350 17 Gm Powd.pack, 17 GM PO BID PRN PRN for CONSTIPATION- 1ST LINE Prescribed by: BRENDA KIRBY on 01/20/202101 Sulfamethoxazole/Trimethoprim 1 Each Tablet, 1 EACH PO BID, (Reported) Patient Home Medication List Home Medication List Reviewed: Yes Review of Systems Review of Systems Constitutional: see HPI EENTM: see HPI Respiratory: no symptoms reported Genitourinary: no symptoms reported Musculoskeletal: no symptoms reported Skin: no symptoms reported Psychiatric/Neurological: No Symptoms Reported Endocrine: No Symptoms Reported Hematologic/Lymphatic: No Symptoms Reported Past Slckuun-Klxgrv-Bwnxdu Hx Patient Social History Type Used: Electronic/Vapor Former Smoker, Quit: Mar 20, 2018 2nd Hand Smoke Exposure: No Recent Foreign Travel: No Contact w/Someone Who Travel: No Recent Hopitalizations: No Immunizations Up To Date Tetanus Booster (TDap): Unknown PED Vaccines UTD: No Date of Influenza Vaccine: Oct 04, 2017 Seasonal Allergies Seasonal Allergies: Yes Past Medical History Surgeries: No Respiratory: Yes Asthma Currently Using CPAP: No Currently Using BIPAP: No Cardiac: No Neurological: No Reproductive Disorders: No Female Reproductive Disorders: Denies Sexually Transmitted Disease: Yes HIV/AIDS: No Genitourinary: Yes UTI-Chronic Gastrointestinal: No Gastroesophageal Reflux Musculoskeletal: No Endocrine: Yes Diabetes, Non-Insulin dep HEENT: No Cancer: No Psychosocial: Yes Anxiety Integumentary: No Blood Disorders: No Family Medical History Family history: Asthma 03 MOTHER Family history: Diabetes mellitus (type 2 diabetes) 03 MOTHER History of - disorder (anxiety, Brother has heart murmur) 03 MOTHER No Pertinent Family Hx Physical Exam Vital Signs Vital Signs - First Documented 02/12/20 11:29 Temp 36.7 Pulse 87 Resp 20 B/P (MAP) 122/66 (84) Pulse Ox 98 O2 Delivery Room Air Capillary Refill : Height, Weight, BMI Height: 5'3.50" Weight: 125lbs. 0oz. 56.309014id; 21.00 BMI Method:Stated General Appearance: WD/WN, no apparent distress HEENT: PERRL/EOMI, normal ENT inspection Neck: non-tender, full range of motion Respiratory: lungs clear, normal breath sounds, no respiratory distress, no accessory muscle use Gastrointestinal: normal bowel sounds, soft, other (pelvic exam done, minimal cervical motion tenderness, no obvious discharge. No bleeding.) Extremities: normal range of motion, non-tender Neurologic/Psychiatric: alert, normal mood/affect, oriented x 3 Skin: normal color, warm/dry Bedside heart tones 166, positive motion on bedside ultrasound. This calmed the patient, she is no longer crying and doesn't report any abdominal pain now. Progress/Results/Core Measures Suspected Sepsis SIRS Temperature: Pulse: Respiratory Rate: Laboratory Tests 02/12/20 11:35: White Blood Count 8.2 Blood Pressure / Mean: Laboratory Tests 02/12/20 11:35: Platelet Count 223 Results/Orders Lab Results Laboratory Tests Test 02/12/20 11:35 02/12/20 11:38 02/12/20 11:45 Range/Units White Blood Count 8.2 4.3-11.0 10^3/uL Red Blood Count 4.65 4.35-5.85 10^6/uL Hemoglobin 13.2 11.5-16.0 G/DL Hematocrit 39 35-52 % Mean Corpuscular Volume 83 80-99 FL Mean Corpuscular Hemoglobin 28 25-34 PG Mean Corpuscular Hemoglobin Concent 34 32-36 G/DL Red Cell Distribution Width 13.9 10.0-14.5 % Platelet Count 223 130-400 10^3/uL Mean Platelet Volume 10.7 H 7.4-10.4 FL Neutrophils (%) (Auto) 64 42-75 % Lymphocytes (%) (Auto) 24 12-44 % Monocytes (%) (Auto) 8 0-12 % Eosinophils (%) (Auto) 4 0-10 % Basophils (%) (Auto) 0 0-10 % Neutrophils # (Auto) 5.2 1.8-7.8 X 10^3 Lymphocytes # (Auto) 2.0 1.0-4.0 X 10^3 Monocytes # (Auto) 0.6 0.0-1.0 X 10^3 Eosinophils # (Auto) 0.3 0.0-0.3 10^3/uL Basophils # (Auto) 0.0 0.0-0.1 10^3/uL Urine Color YELLOW Urine Clarity CLEAR Urine pH 7.5 5-9 Urine Specific Stark 1.015 L 1.016-1.022 Urine Protein NEGATIVE NEGATIVE Urine Glucose (UA) NEGATIVE NEGATIVE Urine Ketones NEGATIVE NEGATIVE Urine Nitrite NEGATIVE NEGATIVE Urine Bilirubin NEGATIVE NEGATIVE Urine Urobilinogen 0.2 < = 1.0 MG/DL Urine Leukocyte Esterase NEGATIVE NEGATIVE Urine RBC (Auto) NEGATIVE NEGATIVE Urine RBC NONE /HPF Urine WBC RARE /HPF Urine Squamous Epithelial Cells 0-2 /HPF Urine Crystals NONE /LPF Urine Bacteria TRACE /HPF Urine Casts NONE /LPF Urine Mucus NEGATIVE /LPF Urine Culture Indicated NO Micro Results Microbiology 02/12/20 Genital Culture, Resulted Pending 02/12/20 Wet Prep - Final, Resulted My Orders Orders - GLO BLOOM ROOFING SUPERVISOR Cbc With Automated Diff (02/12/20 11:42) Hcg,Quantitative (02/12/20 11:42) Ua Culture If Indicated (02/12/20 11:42) Heart Tones (02/12/20 11:42) Wet Prep (02/12/20 11:42) Neisseria Gonorrhea Swab (02/12/20 11:42) Genital Culture (02/12/20 11:42) Chlamydia Trachomatis Swab (02/12/20 11:42) Vital Signs/I&O 02/12/20 11:29 Temp 36.7 Pulse 87 Resp 20 B/P (MAP) 122/66 (84) Pulse Ox 98 O2 Delivery Room Air Capillary Refill : Departure Impression Primary Impression: Abdominal cramping affecting Disposition: HOME, SELF-CARE Condition: Stable Departure-Patient Inst. Decision time for Depature: 12:17 Referrals: TATIANA WEI MD (PCP/Family) Primary Care Physician Patient Instructions: NO INSTRUCTIONS GIVEN Add. Discharge Instructions: 1. Return to ER for any concerns. Your labs and urinalysis are unremarkable. There are no current indications Of infection.Give it about one week and the pelvic cultures should be returned.If they show evidence of infection we'll call you. All discharge instructions reviewed with patient and/or family. Voiced understanding. GLO BLOOM ROOFING SUPERVISOR Feb 12, 2020 11:46
[2020-02-12 11:49] LABS: BASOPHILS % (AUTO) 0 % (0-10); EOSINOPHILS # (AUTO) 0.3 10^3/uL (0.0-0.3); EOSINOPHILS % (AUTO) 4 % (0-10); HEMATOCRIT 39 % (35-52); HEMOGLOBIN 13.2 G/DL (11.5-16.0); LYMPHOCYTES % (AUTO) 24 % (12-44); MEAN CORPUSCULAR HEMOGLOBIN 28 PG (25-34); MEAN CORPUSCULAR HGB CONC 34 G/DL (32-36); MEAN CORPUSCULAR VOLUME 83 FL (80-99); MEAN PLATELET VOLUME 10.7 FL (7.4-10.4); MONOCYTES # (AUTO) 0.6 X 10^3 (0.0-1.0); MONOCYTES % (AUTO) 8 % (0-12); NEUTROPHILS # (AUTO) 5.2 X 10^3 (1.8-7.8); NEUTROPHILS % (AUTO) 64 % (42-75); PLATELET COUNT 223 10^3/uL (130-400); RED CELL DISTRIBUTION WIDTH 13.9 % (10.0-14.5); WHITE BLOOD COUNT 8.2 10^3/uL (4.3-11.0)
[2020-02-12 11:56] LABS: BILIRUBIN,URINE NEGATIVE (NEGATIVE); CLARITY,URINE CLEAR; COLOR,URINE YELLOW; GLUCOSE, URINE (UA) NEGATIVE (NEGATIVE); KETONES,URINE NEGATIVE (NEGATIVE); LEUKOCYTE ESTERASE ,URINE NEGATIVE (NEGATIVE); NITRITE,URINE NEGATIVE (NEGATIVE); PH,URINE 7.5 (5-9); PROTEIN,URINE NEGATIVE (NEGATIVE)
[2020-02-12 12:07] LABS: BACTERIA,URINE TRACE /HPF; SQUAMOUS EPITHELIAL CELL,UR 0-2 /HPF; WBC,URINE RARE /HPF
[2020-02-12 12:34] VITALS: BP 104/74
== END 2020-02-12 12:34 | disposition home or self-care (01) ==
LOC: EDUNIT# 11:29 → ER 11:31
DX: O26.891 Other specified pregnancy related conditions, first trimester (principal); R10.9 Unspecified abdominal pain; O99.341 Other mental disorders complicating pregnancy, first trimester; F41.9 Anxiety disorder, unspecified; Z3A.11 11 weeks gestation of pregnancy; Z87.891 Personal history of nicotine dependence
CPT/HCPCS: 36415; 81000; 84702; 85025; 87070; 87205; 87210; 87491; 87591

== ENCOUNTER 2020-02-22 13:19 | Emergency (ER) | payer MEDICAID ==
[~2020-02-22] VITALS: Ht 162.5 cm; Wt 58.9 kg
--- NOTE | 2020-02-22 13:38 | ED Integumentary General ---
General Chief Complaint: Allergic Reaction Stated Complaint: THROAT PAIN Nursing Triage Note: Pt reports hives and itching to neck. Pt believes itching is caused by a new laundry soap. Pt has not taken anything for itching as pt is 12 weeks and wasn't sure what to take. Source: patient Exam Limitations: no limitations History of Present Illness Date Seen by Provider: February 22, 2020 Time Seen by Provider: 13:35 Initial Comments To ER with itching to her forearms and neck. Began yesterday which she believes is secondary to new laundry soap. She is 12 weeks . Has taken nothing for it. Timing/Duration: yesterday Severity: moderate Location: face (neck), extremities Associated Symptoms: denies symptoms Allergies and Home Medications Allergies Coded Allergies: No Known Drug Allergies (Unverified , 06/23/18) Home Medications Amoxicillin 500 Mg Capsule, 500 MG PO TID Prescribed by: OSVALDO VALENTIN on 05/31/19 2341 Azithromycin 250 Mg Tablet, 250 MG PO DAILY 2 tablets on 01/21/20 One tablet daily until gone Prescribed by: BRENDA KIRBY on 01/20/202101 Cefuroxime Axetil 250 Mg Tablet, 250 MG PO BID Prescribed by: GLO BLOOM on 02/05/207 Cephalexin 500 Mg Capsule, 500 MG PO TID, (Reported) Hydroxyzine Pamoate 25 Mg Capsule, 25 MG PO Q6H PRN for ANXIETY Prescribed by: GLO BLOOM on 05/26/18 1851 Nitrofurantoin Macrocrystal 100 Mg Capsule, 100 MG PO BID Prescribed by: BRENDA KIRBY on 08/05/18 1234 Phenazopyridine HCl 100 Mg Tablet, 100 MG PO TID, (Reported) Polyethylene Glycol 3350 17 Gm Powd.pack, 17 GM PO BID PRN PRN for CONSTIPATION- 1ST LINE Prescribed by: BRENDA KIRBY on 01/20/202101 Sulfamethoxazole/Trimethoprim 1 Each Tablet, 1 EACH PO BID, (Reported) Patient Home Medication List Home Medication List Reviewed: Yes Review of Systems Review of Systems Constitutional: see HPI EENTM: see HPI Respiratory: no symptoms reported Cardiovascular: no symptoms reported Genitourinary: no symptoms reported Musculoskeletal: no symptoms reported Skin: see HPI Psychiatric/Neurological: No Symptoms Reported Endocrine: No Symptoms Reported Hematologic/Lymphatic: No Symptoms Reported Past Puuppch-Eyluhf-Qcfwaw Hx Patient Social History Alcohol Use: Denies Use Recreational Drug Use: No Smoking Status: Former Smoker Type Used: Electronic/Vapor Former Smoker, Quit: Mar 20, 2018 2nd Hand Smoke Exposure: No Recent Foreign Travel: No Contact w/Someone Who Travel: No Recent Infectious Disease Expo: No Recent Hopitalizations: No Physical Abuse: No Sexual Abuse: No Mistreated: No Immunizations Up To Date Tetanus Booster (TDap): Unknown PED Vaccines UTD: No Date of Influenza Vaccine: Oct 04, 2017 Seasonal Allergies Seasonal Allergies: Yes Past Medical History Surgeries: No Respiratory: Yes Asthma Currently Using CPAP: No Currently Using BIPAP: No Cardiac: No Neurological: No Reproductive Disorders: No Female Reproductive Disorders: Denies Sexually Transmitted Disease: Yes HIV/AIDS: No Genitourinary: Yes UTI-Chronic Gastrointestinal: No Gastroesophageal Reflux Musculoskeletal: No Endocrine: Yes ("not sure if diabetic or not") Diabetes, Non-Insulin dep HEENT: No Cancer: No Psychosocial: Yes Anxiety Integumentary: No Blood Disorders: No Family Medical History Family history: Asthma 03 MOTHER Family history: Diabetes mellitus (type 2 diabetes) 03 MOTHER History of - disorder (anxiety, Brother has heart murmur) 03 MOTHER No Pertinent Family Hx Physical Exam Vital Signs Vital Signs - First Documented 02/22/20 13:20 Temp 36.6 Pulse 83 Resp 14 B/P (MAP) 109/64 (79) Pulse Ox 99 O2 Delivery Room Air Capillary Refill : Less Than 3 Seconds General Appearance: WD/WN, no apparent distress HEENT: PERRL/EOMI, normal ENT inspection Respiratory: no respiratory distress, no accessory muscle use Neurologic/Psychiatric: alert, normal mood/affect, oriented x 3 Skin: normal color, warm/dry Skin Problem Character: other Progress/Results/Core Measures Results/Orders My Orders Orders - GLO BLOOM APRN Diphenhydramine Tablet (Benadryl Tablet) (02/22/20 13:45) Vital Signs/I&O 02/22/20 13:20 Temp 36.6 Pulse 83 Resp 14 B/P (MAP) 109/64 (79) Pulse Ox 99 O2 Delivery Room Air Blood Pressure Mean: 79 Departure Communication (Admissions) There is no visible rash that I can see. No scleral icterus or jaundice. This could represent pruritus from cholestasis of . If Benadryl flails to resolve her symptoms she'll need follow-up with primary care later this week or next week for labs. Impression Primary Impression: Pruritus Disposition: 01 HOME, SELF-CARE Condition: Stable Departure-Patient Inst. Decision time for Depature: 13:37 Referrals: TATIANA WEI MD (PCP/Family) Primary Care Physician Patient Instructions: Itchy Skin Add. Discharge Instructions: 1. Use one Benadryl tablet every 4-6 hours as needed for itching. This is safe in . If that fails to resolve your itchiness, follow-up with Dr. Wei to have some labs drawn. All discharge instructions reviewed with patient and/or family. Voiced understkathi colby. GLO BLOOM PRIVATE DETECTIVE February 22, 2020 13:38
[2020-02-22 13:40] VITALS: BP 109/64
[2020-02-22] MEDS ORDERED: diphenhydrAMINE 25 MG TAB (BENADRYL) PO ONE (13:45)
== END 2020-02-22 13:40 | disposition home or self-care (01) ==
LOC: EDUNIT# 13:19 → ER 13:20
DX: O99.711 Diseases of the skin and subcutaneous tissue complicating pregnancy, first trimester (principal); L29.9 Pruritus, unspecified; O99.341 Other mental disorders complicating pregnancy, first trimester; F41.9 Anxiety disorder, unspecified; Z3A.12 12 weeks gestation of pregnancy; Z87.891 Personal history of nicotine dependence
CPT/HCPCS: 99282

== ENCOUNTER 2020-03-07 10:08 | Emergency (ER) | payer MEDICAID ==
[~2020-03-07] VITALS: Ht 160 cm; Wt 75.0 kg
[2020-03-07] MEDS ORDERED: ACETAMINOPHEN 325 MG TABLET PO STA (11:26)
[2020-03-07 11:31] LABS: BASOPHILS % (AUTO) 0 % (0-10); EOSINOPHILS # (AUTO) 0.3 10^3/uL (0.0-0.3); EOSINOPHILS % (AUTO) 3 % (0-10); HEMATOCRIT 35 % (35-52); HEMOGLOBIN 12.2 G/DL (11.5-16.0); LYMPHOCYTES # (AUTO) 2.1 X 10^3 (1.0-4.0); LYMPHOCYTES % (AUTO) 20 % (12-44); MEAN CORPUSCULAR HEMOGLOBIN 30 PG (25-34); MEAN CORPUSCULAR HGB CONC 35 G/DL (32-36); MEAN CORPUSCULAR VOLUME 84 FL (80-99); MEAN PLATELET VOLUME 10.4 FL (7.4-10.4); MONOCYTES # (AUTO) 0.7 X 10^3 (0.0-1.0); MONOCYTES % (AUTO) 7 % (0-12); NEUTROPHILS # (AUTO) 7.1 X 10^3 (1.8-7.8); NEUTROPHILS % (AUTO) 70 % (42-75); PLATELET COUNT 220 10^3/uL (130-400); RED CELL DISTRIBUTION WIDTH 13.5 % (10.0-14.5); WHITE BLOOD COUNT 10.2 10^3/uL (4.3-11.0)
--- NOTE | 2020-03-07 11:34 | ED GU-Female ---
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 Nursing Sepsis Screen: No Definite Risk History of Present Illness Date Seen by Provider: March 07, 2020 Time Seen by Provider: 11:10 Initial Comments 24-year-old female who is a proximally 14 weeks gestation presents for intermittent lower abdominal cramping. She has not taken any Tylenol or contacted her OB doctor about these symptoms. She is denying any vaginal discharge or spotting. She is not having any nausea or vomiting today. She has been seen for these similar complaints at 3 previous emergency Department visits. She does mention that Dr. Wei stated she may need to be on light duty or altered activity level because of the cramping. She has not followed up with him on receiving this restrictions. She is eating and drinking, with no problems. No movement felt by patient. She is taking vitamins daily. Had intercourse 2 days ago, no pain, discharge or spotting reported. Timing/Duration: yesterday Severity/Quality: mild Location: suprapubic Associated Symptoms: denies symptoms Allergies and Home Medications Allergies Coded Allergies: No Known Drug Allergies (Unverified , 06/23/18) Home Medications Amoxicillin 500 Mg Capsule, 500 MG PO TID Prescribed by: OSVALDO VALENTIN on 05/31/19 2341 Azithromycin 250 Mg Tablet, 250 MG PO DAILY 2 tablets on 01/21/20 One tablet daily until gone Prescribed by: BRENDA KIRBY on 01/20/202101 Cefuroxime Axetil 250 Mg Tablet, 250 MG PO BID Prescribed by: GLO BLOOM on 02/05/207 Cephalexin 500 Mg Capsule, 500 MG PO TID, (Reported) Hydroxyzine Pamoate 25 Mg Capsule, 25 MG PO Q6H PRN for ANXIETY Prescribed by: GLO BLOOM on 05/26/18 1851 Nitrofurantoin Macrocrystal 100 Mg Capsule, 100 MG PO BID Prescribed by: BRENDA KIRBY on 08/05/18 1234 Nitrofurantoin Monohyd/M-Cryst 100 Mg Capsule, 100 MG PO Q12H Prescribed by: DENNIS DAVIS on 03/07/20 1219 Phenazopyridine HCl 100 Mg Tablet, 100 MG PO TID, (Reported) Polyethylene Glycol 3350 17 Gm Powd.pack, 17 GM PO BID PRN PRN for CONSTIPATION- 1ST LINE Prescribed by: BRENDA KIRBY on 01/20/202101 Sulfamethoxazole/Trimethoprim 1 Each Tablet, 1 EACH PO BID, (Reported) Patient Home Medication List Home Medication List Reviewed: Yes Review of Systems Review of Systems Constitutional: no symptoms reported, see HPI Gastrointestinal: see HPI, abdominal pain (pressure suprapubic); No constipation, No diarrhea, No heartburn, No loss of appetite, No nausea, No vomiting All Other Systemes Reviewed Negative Unless Noted: Yes Past Jweslqt-Fiiand-Axlvnw Hx Past Med/Social Hx: Reviewed and Corrections made Patient Social History Alcohol Use: Denies Use Recreational Drug Use: No Smoking Status: Former Smoker Type Used: Electronic/Vapor Former Smoker, Quit: Mar 20, 2018 2nd Hand Smoke Exposure: No Recent Foreign Travel: No Contact w/Someone Who Travel: No Recent Infectious Disease Expo: No Recent Hopitalizations: No Immunizations Up To Date Tetanus Booster (TDap): Unknown PED Vaccines UTD: No Date of Influenza Vaccine: Oct 04, 2017 Seasonal Allergies Seasonal Allergies: Yes Past Medical History Surgeries: No Respiratory: Yes Asthma Currently Using CPAP: No Currently Using BIPAP: No Cardiac: No Neurological: No : Yes Expected Date of Delivery: Aug 31, 2020 Last Menstrual Period: Nov 25, 2019 Hx : 3 Hx Para: 2 Hx Total # of Abortions (Sp): 0 Reproductive Disorders: No Female Reproductive Disorders: Denies Sexually Transmitted Disease: Yes HIV/AIDS: No Genitourinary: Yes UTI-Chronic Gastrointestinal: No Gastroesophageal Reflux Musculoskeletal: No Endocrine: Yes ("not sure if diabetic or not") Diabetes, Non-Insulin dep HEENT: No Cancer: No Psychosocial: Yes Anxiety Integumentary: No Blood Disorders: No Family Medical History Family history: Asthma 03 MOTHER Family history: Diabetes mellitus (type 2 diabetes) 03 MOTHER History of - disorder (anxiety, Brother has heart murmur) 03 MOTHER No Pertinent Family Hx Physical Exam Vital Signs Vital Signs - First Documented 03/07/20 10:20 Temp 36.9 Pulse 75 Resp 18 B/P (MAP) 113/69 (84) Pulse Ox 99 O2 Delivery Room Air Capillary Refill : Less Than 3 Seconds Height, Weight, BMI Height: 5'3.50" Weight: 125lbs. 0oz. 56.320535rm; 29.00 BMI Method:Stated General Appearance: WD/WN, no apparent distress HEENT: PERRL/EOMI, normal ENT inspection, TMs normal, pharynx normal, other (oral mucosa pink and moist) Neck: non-tender, full range of motion, supple, normal inspection Cardiovascular: normal peripheral pulses, regular rate, rhythm Respiratory: chest non-tender, lungs clear, normal breath sounds, no respiratory distress, no accessory muscle use Gastrointestinal: normal bowel sounds, non tender, soft; No distended, No guarding, No rebound, No tenderness; other ( heart tones obtained without difficulty, variable rate of 140-160. Patient reassured and voiced feeling better to know that. ) Neurologic/Psychiatric: no motor/sensory deficits, alert, normal mood/affect, oriented x 3 Skin: normal color, warm/dry Progress/Results/Core Measures Suspected Sepsis Recent Fever Within 48 Hours: No Infection Criteria Present: None New/Unexplained Altered Menta: No Sepsis Screen: No Definite Risk SIRS Temperature: Pulse: 75 Respiratory Rate: 18 Laboratory Tests 03/07/20 11:20: White Blood Count 10.2 Blood Pressure 113 /69 Mean: 84 Laboratory Tests 03/07/20 11:20: Creatinine 0.65, Platelet Count 220 Results/Orders Lab Results Laboratory Tests Test 03/07/20 11:20 03/07/20 11:37 Range/Units White Blood Count 10.2 4.3-11.0 10^3/uL Red Blood Count 4.14 L 4.35-5.85 10^6/uL Hemoglobin 12.2 11.5-16.0 G/DL Hematocrit 35 35-52 % Mean Corpuscular Volume 84 80-99 FL Mean Corpuscular Hemoglobin 30 25-34 PG Mean Corpuscular Hemoglobin Concent 35 32-36 G/DL Red Cell Distribution Width 13.5 10.0-14.5 % Platelet Count 220 130-400 10^3/uL Mean Platelet Volume 10.4 7.4-10.4 FL Neutrophils (%) (Auto) 70 42-75 % Lymphocytes (%) (Auto) 20 12-44 % Monocytes (%) (Auto) 7 0-12 % Eosinophils (%) (Auto) 3 0-10 % Basophils (%) (Auto) 0 0-10 % Neutrophils # (Auto) 7.1 1.8-7.8 X 10^3 Lymphocytes # (Auto) 2.1 1.0-4.0 X 10^3 Monocytes # (Auto) 0.7 0.0-1.0 X 10^3 Eosinophils # (Auto) 0.3 0.0-0.3 10^3/uL Basophils # (Auto) 0.0 0.0-0.1 10^3/uL Sodium Level 137 135-145 MMOL/L Potassium Level 3.5 L 3.6-5.0 MMOL/L Chloride Level 107 98-107 MMOL/L Carbon Dioxide Level 21 21-32 MMOL/L Anion Gap 9 5-14 MMOL/L Blood Urea Nitrogen 10 7-18 MG/DL Creatinine 0.65 0.60-1.30 MG/DL Estimat Glomerular Filtration Rate > 60 BUN/Creatinine Ratio 15 Glucose Level 75 70-105 MG/DL Calcium Level 8.3 L 8.5-10.1 MG/DL Human Chorionic Gonadotropin, Quant 06211 H <5 MIU/ML Urine Color YELLOW Urine Clarity SL CLOUDY Urine pH 7.5 5-9 Urine Specific [place] 1.015 L 1.016-1.022 Urine Protein NEGATIVE NEGATIVE Urine Glucose (UA) NEGATIVE NEGATIVE Urine Ketones NEGATIVE NEGATIVE Urine Nitrite NEGATIVE NEGATIVE Urine Bilirubin NEGATIVE NEGATIVE Urine Urobilinogen 0.2 < = 1.0 MG/DL Urine Leukocyte Esterase 2+ H NEGATIVE Urine RBC (Auto) NEGATIVE NEGATIVE Urine RBC NONE /HPF Urine WBC 5-10 H /HPF Urine Squamous Epithelial Cells 25-50 H /HPF Urine Crystals NONE /LPF Urine Bacteria LARGE H /HPF Urine Casts NONE /LPF Urine Mucus NEGATIVE /LPF Urine Culture Indicated YES Urine Opiates Screen NEGATIVE NEGATIVE Urine Oxycodone Screen NEGATIVE NEGATIVE Urine Methadone Screen NEGATIVE NEGATIVE Urine Propoxyphene Screen NEGATIVE NEGATIVE Urine Barbiturates Screen NEGATIVE NEGATIVE Ur Tricyclic Antidepressants Screen NEGATIVE NEGATIVE Urine Phencyclidine Screen NEGATIVE NEGATIVE Urine Amphetamines Screen NEGATIVE NEGATIVE Urine Methamphetamines Screen NEGATIVE NEGATIVE Urine Benzodiazepines Screen NEGATIVE NEGATIVE Urine Cocaine Screen NEGATIVE NEGATIVE Urine Cannabinoids Screen NEGATIVE NEGATIVE My Orders Orders - RYAN,DENNIS ORGANIZATION DEVELOPMENT CONSULTANT Acetaminophen Tablet/Caplet (Tylenol T (03/07/20 11:26) Drug Screen Stat (Urine) (03/07/20 11:39) Vital Signs/I&O 03/07/20 10:20 Temp 36.9 Pulse 75 Resp 18 B/P (MAP) 113/69 (84) Pulse Ox 99 O2 Delivery Room Air Capillary Refill : Less Than 3 Seconds Blood Pressure Mean: 84 Progress Note : Time: 11:10 Progress Note Patient seen and evaluated, will obtain labs. No indication for ultrasound at this time is heart tones were easily assessed. Will give Tylenol 650 mg orally for cramping. 1205 patient reports symptoms are improving. Awaiting lab results. 1225 labs essentially normal with exception of a UTI. Discharge instructions and return precautions reviewed with the patient in detail. She has made an appointment to see Dr. Rondon tomorrow at the clinic. Departure Impression Primary Impression: Second trimester Additional Impressions: Abdominal cramping affecting UTI (urinary tract infection) Qualified Codes: N30.00 - Acute cystitis without hematuria Disposition: HOME, SELF-CARE Condition: Improved Departure-Patient Inst. Decision time for Depature: 12:05 Referrals: TATIANA WEI MD (PCP/Family) Primary Care Physician Patient Instructions: How to Adapt to Physical Changes During , - The Third Month, Urinary Tract Infection, Adult (DC) Add. Discharge Instructions: You may take Tylenol 650 mg every 6-8 hours as needed for pain or cramping. Take antibiotics for UTI as prescribed. Increase water intake, 618 ounces every 2 hours while awake. Eat 1 cup of fresh blueberries or drink 1 cup of cranberry juice daily, through to prevent UTIs. Empty bladder every 2 hours while awake. Keep your appt for tomorrow with Dr. Wei. Call to discuss concerns or make follow up appointments with Dr. Wei for issues related to , OB doctors are your best source of information and care during . Notes for restrictions during need to be obtained by your OB doctor. Vaginal rest: no intercourse, douching, tampons, or anything else in your vagina. Return to the Emergency Dept for severe lower abdominal pain, not relieved by Tylenol, fever greater than 101, vaginal discharge or bleeding, or new emergency concerns. All discharge instructions reviewed with patient and/or family. Voiced understanding. Scripts Nitrofurantoin Monohyd/M-Cryst (Macrobid 100 mg Capsule) 100 Mg Capsule 100 MG PO Q12H, #10 TAB 0 Refills Prov: DENNIS DAVIS 03/07/20 Copy Copies To 1: TATIANA WEI MD, AMY ARNP March 07, 2020 11:34
[2020-03-07 11:43] LABS: BILIRUBIN,URINE NEGATIVE (NEGATIVE); CLARITY,URINE SL CLOUDY; COLOR,URINE YELLOW; GLUCOSE, URINE (UA) NEGATIVE (NEGATIVE); KETONES,URINE NEGATIVE (NEGATIVE); LEUKOCYTE ESTERASE ,URINE 2+ (NEGATIVE); NITRITE,URINE NEGATIVE (NEGATIVE); PH,URINE 7.5 (5-9); PROTEIN,URINE NEGATIVE (NEGATIVE)
[2020-03-07 11:43] LABS: CHLORIDE 107 MMOL/L (98-107); POTASSIUM 3.5 MMOL/L (3.6-5.0); SODIUM 137 MMOL/L (135-145)
[2020-03-07 11:44] LABS: CALCIUM 8.3 MG/DL (8.5-10.1); GLUCOSE 75 MG/DL (70-105)
[2020-03-07 11:46] LABS: CARBON DIOXIDE 21 MMOL/L (21-32)
[2020-03-07 11:48] LABS: CREATININE SERUM 0.65 MG/DL (0.60-1.30); GFR ESTIMATED > 60
[2020-03-07 11:49] LABS: BUN/CREATININE RATIO 15
[2020-03-07 11:50] LABS: BACTERIA,URINE LARGE /HPF; SQUAMOUS EPITHELIAL CELL,UR 25-50 /HPF
[2020-03-07 11:59] LABS: AMPHETAMINE SCREEN, URINE NEGATIVE (NEGATIVE); BARBITURATE SCREEN URINE NEGATIVE (NEGATIVE); BENZODIAZEPINES SCREEN URINE NEGATIVE (NEGATIVE); CANNABINOID SCREEN, URINE NEGATIVE (NEGATIVE); COCAINE SCREEN URINE NEGATIVE (NEGATIVE); METHADONE STAT NEGATIVE (NEGATIVE); METHAMPHETAMINE SCREEN URINE S NEGATIVE (NEGATIVE); OPIATE SCREEN URINE NEGATIVE (NEGATIVE); OXYCODONE STAT NEGATIVE (NEGATIVE); PROPOXYPHENE STAT NEGATIVE (NEGATIVE); TRICYCLIC ANTIDEPRESSANTS SCRE NEGATIVE (NEGATIVE)
[2020-03-07] MEDS ORDERED: NITR-65 PO (12:19)
[2020-03-07 12:49] VITALS: BP 109/60
== END 2020-03-07 12:49 | disposition home or self-care (01) ==
LOC: EDUNIT# 10:08 → ER 10:10
DX: O26.892 Other specified pregnancy related conditions, second trimester (principal); R10.30 Lower abdominal pain, unspecified; O23.42 Unspecified infection of urinary tract in pregnancy, second trimester; O99.342 Other mental disorders complicating pregnancy, second trimester; F41.9 Anxiety disorder, unspecified; Z3A.14 14 weeks gestation of pregnancy; Z87.891 Personal history of nicotine dependence
CPT/HCPCS: 36415; 80048; 80306; 81000; 84702; 84703; 85025; 87088

== ENCOUNTER 2020-03-22 14:03 | Emergency (ER) | payer MEDICAID ==
[~2020-03-22] VITALS: Ht 160 cm; Wt 60.3 kg
[2020-03-22 14:10] VITALS: BP 117/75
--- NOTE | 2020-03-22 14:29 | ED Abdominal Pain ---
General Chief Complaint: Abdominal/GI Problems Stated Complaint: CRAMPING Source of Information: Patient Exam Limitations: No Limitations History of Present Illness Date Seen by Provider: Mar 22, 2020 Time Seen by Provider: 14:23 Initial Comments To ER with suprapubic abdominal cramping without bleeding nausea vomiting fevers or chills. She's had some cramping quite frequently with this . She is 16 weeks . She was having some cramping again this morning, stood up to help her son to the room, fell landing on her abdomen which worsened the pain. Timing/Duration: Intermittent Severity/Quality: Cramping Radiation: No Radiation Activities at Onset: None Associated Symptoms: Denies Symptoms Allergies and Home Medications Allergies Coded Allergies: No Known Drug Allergies (Unverified , 06/23/18) Home Medications Amoxicillin 500 Mg Capsule, 500 MG PO TID Prescribed by: OSVALDO VALENTIN on 05/31/19 2341 Azithromycin 250 Mg Tablet, 250 MG PO DAILY 2 tablets on 01/21/20 One tablet daily until gone Prescribed by: BRENDA KIRBY on 01/20/202101 Cefuroxime Axetil 250 Mg Tablet, 250 MG PO BID Prescribed by: GLO BLOOM on 02/05/207 Cephalexin 500 Mg Capsule, 500 MG PO TID, (Reported) Hydroxyzine Pamoate 25 Mg Capsule, 25 MG PO Q6H PRN for ANXIETY Prescribed by: GLO BLOOM on 05/26/18 1851 Nitrofurantoin Macrocrystal 100 Mg Capsule, 100 MG PO BID Prescribed by: BRENDA KIRBY on 08/05/18 1234 Nitrofurantoin Monohyd/M-Cryst 100 Mg Capsule, 100 MG PO Q12H Prescribed by: DENNIS DAVIS on 03/07/20 1219 Phenazopyridine HCl 100 Mg Tablet, 100 MG PO TID, (Reported) Polyethylene Glycol 3350 17 Gm Powd.pack, 17 GM PO BID PRN PRN for CONSTIPATION- 1ST LINE Prescribed by: BRENDA KIRBY on 01/20/202101 Sulfamethoxazole/Trimethoprim 1 Each Tablet, 1 EACH PO BID, (Reported) Patient Home Medication List Home Medication List Reviewed: Yes Review of Systems Review of Systems Constitutional: see HPI; No chills, No fever EENTM: No Symptoms Reported Respiratory: No Symptoms Reported Cardiovascular: No Symptoms Reported Gastrointestinal: See HPI, Abdominal Pain (suprapubic cramping) Genitourinary: No Symptoms Reported Musculoskeletal: no symptoms reported Skin: no symptoms reported Psychiatric/Neurological: No Symptoms Reported Endocrine: No Symptoms Reported Hematologic/Lymphatic: No Symptoms Reported Past Htnxffr-Jmlhpy-Vkawwh Hx Patient Social History Type Used: Electronic/Vapor Former Smoker, Quit: Mar 20, 2018 2nd Hand Smoke Exposure: No Recent Hopitalizations: No Immunizations Up To Date Tetanus Booster (TDap): Unknown PED Vaccines UTD: No Date of Influenza Vaccine: Oct 04, 2017 Seasonal Allergies Seasonal Allergies: Yes Past Medical History Surgeries: No Respiratory: Yes Asthma Currently Using CPAP: No Currently Using BIPAP: No Cardiac: No Neurological: No Reproductive Disorders: No Female Reproductive Disorders: Denies Sexually Transmitted Disease: Yes HIV/AIDS: No Genitourinary: Yes UTI-Chronic Gastrointestinal: No Gastroesophageal Reflux Musculoskeletal: No Endocrine: Yes ("not sure if diabetic or not") Diabetes, Non-Insulin dep HEENT: No Cancer: No Psychosocial: Yes Anxiety Integumentary: No Blood Disorders: No Family Medical History Family history: Asthma 03 MOTHER Family history: Diabetes mellitus (type 2 diabetes) 03 MOTHER History of - disorder (anxiety, Brother has heart murmur) 03 MOTHER No Pertinent Family Hx Physical Exam Vital Signs Vital Signs - First Documented 03/22/20 14:10 Temp 37.0 Pulse 90 Resp 16 B/P (MAP) 117/75 (89) Pulse Ox 96 O2 Delivery Room Air Capillary Refill : Height/Weight/BMI Height: 5'3.50" Weight: 125lbs. 0oz. 56.947142zn; 29.00 BMI Method:Stated General Appearance: WD/WN, no apparent distress Neck: non-tender, full range of motion Respiratory: normal breath sounds, no respiratory distress, no accessory muscle use Cardiovascular: regular rate, rhythm, no murmur Gastrointestinal: normal bowel sounds, non tender, soft Extremities: normal range of motion, non-tender Neurologic/Psychiatric: alert, normal mood/affect, oriented x 3 Skin: normal color, warm/dry Progress/Results/Core Measures Results/Orders Lab Results Laboratory Tests Test 03/22/20 14:28 Range/Units Urine Color YELLOW Urine Clarity CLEAR Urine pH 7.5 5-9 Urine Specific [place] 1.015 L 1.016-1.022 Urine Protein NEGATIVE NEGATIVE Urine Glucose (UA) NEGATIVE NEGATIVE Urine Ketones NEGATIVE NEGATIVE Urine Nitrite NEGATIVE NEGATIVE Urine Bilirubin NEGATIVE NEGATIVE Urine Urobilinogen 0.2 < = 1.0 MG/DL Urine Leukocyte Esterase 1+ H NEGATIVE Urine RBC (Auto) NEGATIVE NEGATIVE Urine RBC NONE /HPF Urine WBC 2-5 /HPF Urine Crystals PRESENT H /LPF Urine Amorphous Sediment MOD SHU PHOSPHATE H /LPF Urine Bacteria FEW H /HPF Urine Casts NONE /LPF Urine Mucus NEGATIVE /LPF Urine Culture Indicated YES My Orders Orders - GLO BLOOM APRN Hcg,Quantitative (03/22/20 14:09) Ua Culture If Indicated (03/22/20 14:09) Urine Culture (03/22/20 14:28) Vital Signs/I&O 03/22/20 14:10 Temp 37.0 Pulse 90 Resp 16 B/P (MAP) 117/75 (89) Pulse Ox 96 O2 Delivery Room Air Departure Communication (Admissions) Bedside ultrasound reveals positive motion and cardiac activity. Impression Primary Impression: Abdominal cramping Additional Impression: Urinary tract infectious disease Disposition: 01 HOME, SELF-CARE Condition: Stable Departure-Patient Inst. Decision time for Depature: 14:28 Referrals: TATIANA WEI MD (PCP/Family) Primary Care Physician Patient Instructions: Abdominal Trauma in Add. Discharge Instructions: All discharge instructions reviewed with patient and/or family. Voiced understanding. Scripts Cefuroxime Axetil (Cefuroxime) 250 Mg Tablet 250 MG PO BID, #10 TAB Prov: GLO BLOOM APRN 03/22/20 Copy Copies To 1: TATIANA WEI MD, PETER J APRN Mar 22, 2020 14:28
[2020-03-22 14:39] LABS: BILIRUBIN,URINE NEGATIVE (NEGATIVE); CLARITY,URINE CLEAR; COLOR,URINE YELLOW; GLUCOSE, URINE (UA) NEGATIVE (NEGATIVE); KETONES,URINE NEGATIVE (NEGATIVE); LEUKOCYTE ESTERASE ,URINE 1+ (NEGATIVE); NITRITE,URINE NEGATIVE (NEGATIVE); PH,URINE 7.5 (5-9); PROTEIN,URINE NEGATIVE (NEGATIVE)
[2020-03-22 14:48] LABS: AMORPHOUS SEDIMENT,UR MOD AMOR PHOSPHATE /LPF; BACTERIA,URINE FEW /HPF
[2020-03-22] MEDS ORDERED: CEFU250T80 PO (14:52)
== END 2020-03-22 15:06 | disposition home or self-care (01) ==
LOC: EDUNIT# 14:03 → ER 14:04
DX: O23.42 Unspecified infection of urinary tract in pregnancy, second trimester (principal); O99.342 Other mental disorders complicating pregnancy, second trimester; F41.9 Anxiety disorder, unspecified; Z77.22 Contact with and (suspected) exposure to environmental tobacco smoke (acute) (chronic); Z3A.16 16 weeks gestation of pregnancy
CPT/HCPCS: 36415; 81000; 84702; 87088

== ENCOUNTER 2020-04-19 22:33 | Outpatient (CLI) | payer MEDICAID ==
--- NOTE | 2020-04-19 22:30 | NUR ---
HERNANDO FORBES presented to unit via w'c from ED, accompanied by s/o, with c/o abdominal PAINS. HERNANDO FORBES weighed, gowned, voided, and to bed. EFHM and TOCO applied, VS taken. HERNANDO FORBES oriented to bed controls, call light, TV, heat, and A/C controls.
--- NOTE | 2020-04-19 22:30 | NUR ---
pt c/o severe abdominal pain that started around 2129 while she was eating. Placed pt in bed. after being supine, pt states pain is gone. Pt is only experiencing pain when she sits up. assessment completed. pt c/o right upper quadrant tenderness.
[2020-04-19 22:40] VITALS: BP 117/75
[2020-04-19 23:12] LABS: BILIRUBIN,URINE NEGATIVE (NEGATIVE); CLARITY,URINE CLOUDY; COLOR,URINE YELLOW; GLUCOSE, URINE (UA) NEGATIVE (NEGATIVE); KETONES,URINE NEGATIVE (NEGATIVE); LEUKOCYTE ESTERASE ,URINE 1+ (NEGATIVE); NITRITE,URINE NEGATIVE (NEGATIVE); PH,URINE 6.5 (5-9); PROTEIN,URINE NEGATIVE (NEGATIVE)
[2020-04-19 23:19] LABS: AMORPHOUS SEDIMENT,UR FEW AMOR URATES /LPF; BACTERIA,URINE FEW /HPF
--- NOTE | 2020-04-19 23:22 | NUR ---
notified of pt's arrival and complaint. new orders received.
[2020-04-19] MEDS ORDERED: LIDOCAINE 2% VISCOUS 15 ML UDC PO ONE (23:30)
[2020-04-19] MEDS ORDERED: DONNATAL PO ONE (23:30)
[2020-04-19] MEDS ORDERED: ANTACID SUSP 30 ML UDC (MYLANTA) PO ONE (23:30)
--- NOTE | 2020-04-20 | NUR ---
Pt came out to desk, states that she just had a bowel movement and is now feeling a lot better.
[2020-04-20 00:11] LABS: BASOPHILS % (AUTO) 0 % (0-10); EOSINOPHILS # (AUTO) 0.2 10^3/uL (0.0-0.3); EOSINOPHILS % (AUTO) 2 % (0-10); HEMATOCRIT 33 % (35-52); HEMOGLOBIN 11.2 G/DL (11.5-16.0); LYMPHOCYTES # (AUTO) 2.2 X 10^3 (1.0-4.0); LYMPHOCYTES % (AUTO) 19 % (12-44); MEAN CORPUSCULAR HEMOGLOBIN 29 PG (25-34); MEAN CORPUSCULAR HGB CONC 34 G/DL (32-36); MEAN CORPUSCULAR VOLUME 86 FL (80-99); MEAN PLATELET VOLUME 10.3 FL (7.4-10.4); MONOCYTES # (AUTO) 1.1 X 10^3 (0.0-1.0); MONOCYTES % (AUTO) 10 % (0-12); NEUTROPHILS # (AUTO) 7.7 X 10^3 (1.8-7.8); NEUTROPHILS % (AUTO) 69 % (42-75); PLATELET COUNT 231 10^3/uL (130-400); RED CELL DISTRIBUTION WIDTH 13.8 % (10.0-14.5); WHITE BLOOD COUNT 11.2 10^3/uL (4.3-11.0)
[2020-04-20 00:20] LABS: ALBUMIN 3.4 GM/DL (3.2-4.5); CHLORIDE 109 MMOL/L (98-107); POTASSIUM 3.8 MMOL/L (3.6-5.0); SODIUM 141 MMOL/L (135-145)
[2020-04-20 00:21] LABS: CALCIUM 9.1 MG/DL (8.5-10.1)
[2020-04-20 00:22] LABS: GLUCOSE 87 MG/DL (70-105)
[2020-04-20 00:23] LABS: TOTAL PROTEIN 6.2 GM/DL (6.4-8.2)
[2020-04-20 00:24] LABS: BILIRUBIN,TOTAL 0.4 MG/DL (0.1-1.0); CARBON DIOXIDE 21 MMOL/L (21-32)
[2020-04-20 00:26] LABS: ALKALINE PHOSPHATASE 49 U/L (40-136); GFR ESTIMATED > 60
[2020-04-20 00:27] LABS: BUN/CREATININE RATIO 19
[2020-04-20 00:29] LABS: ALANINE AMINOTRANSFERASE 9 U/L (0-55)
[2020-04-20] MEDS ORDERED: PREN-8 PO (00:38)
--- NOTE | 2020-04-20 00:50 | NUR ---
Pt states she is feeling a lot better and request to be discharged. Discharge order received. Discharge instructions verbalized. Pt verbalized understanding. Pt dc'd home. Will follow up with in office.
[2020-04-20] MEDS ORDERED: ANTACID SUSP 30 ML UDC (MYLANTA) ONE (02:12)
--- NOTE | 2020-04-20 08:25 | Physician Query-Final Dx ---
RASHAUN VALIENTE 04/20/20 0825: Clinic Account Progress/Dx Physician Query: Please give diagnosis Please include # weeks gestation Date of Service Apr 19, 2020 at 22:33 TATIANA WEI MD 04/24/20 0640: Clinic Account Progress/Dx DIAGNOSIS: Diagnosis 1. IUP at 21 weeks 2. Abdominal pain NOS 3. Constipation RASHAUN VALIENTE Apr 20, 2020 08:25 TATIANA WEI MD Apr 24, 2020 06:40
== END 2020-04-20 00:50 ==
LOC: WSo 22:33 → LDRP 22:33 → WSo 04-20 00:50
PROVIDERS: ATTEND Family Medicine
DX: O26.892 Other specified pregnancy related conditions, second trimester (principal); R10.9 Unspecified abdominal pain; K59.00 Constipation, unspecified; Z3A.21 21 weeks gestation of pregnancy
CPT/HCPCS: 36415; 80053; 81000; 85025; 87088; 99213

== ENCOUNTER 2020-05-27 17:19 | Outpatient (CLI) | payer MEDICAID ==
[~2020-05-27] VITALS: Ht 160 cm; Wt 70.0 kg
[~2020-05-27 17:19] MED LIST changes: +PREN-8 PO
--- NOTE | 2020-05-27 17:25 | NUR ---
HERNANDO FORBES presented to unit via ambulation from ED, accompanied by S.o., with c/o CONTRACTIONS/CRAMPS, EAR PAIN. HERNANDO FORBES weighed, gowned, voided, and to bed. EFHM and TOCO applied, VS taken. HERNANDO FORBES oriented to bed controls, call light, TV, heat, and A/C controls.
[2020-05-27 17:43] LABS: BILIRUBIN,URINE NEGATIVE (NEGATIVE); CLARITY,URINE CLEAR; COLOR,URINE YELLOW; GLUCOSE, URINE (UA) TRACE (NEGATIVE); KETONES,URINE NEGATIVE (NEGATIVE); LEUKOCYTE ESTERASE ,URINE TRACE (NEGATIVE); NITRITE,URINE NEGATIVE (NEGATIVE); PROTEIN,URINE TRACE (NEGATIVE)
[2020-05-27 18:07] LABS: BACTERIA,URINE LARGE /HPF; SQUAMOUS EPITHELIAL CELL,UR 25-50 /HPF
--- NOTE | 2020-05-27 18:12 | NUR ---
Dr. Cardona called and notified of 26wk 2 day presenting to unit with L ear pain and chloe werner contractions. Dr notified pt c/o cramping every few [facility]. Pt denies vaginal bleeding or leaking, but confirms movement. Pt reports a history of chronic UTI's in and c/o pain on urination at this time. notified of uterine irritability, FHR, UA, and other assessment findings. Orders to D/C home on pelvic rest and oral hydration to follow up with Dr Madrid as scheduled or sooner if needed, have pt return to ER for ear.
--- NOTE | 2020-05-27 18:25 | NUR ---
Discharge instructions explained to pt with copy provided. Pt verbalizes understanding of instructions and signs to verify. Pt denies questions or concerns at this time. Pt leaves ambulatory accompanied by S.O. to ER for ear pain. No s/s of distress noted.
[2020-05-27 18:26] VITALS: BP 113/75
--- NOTE | 2020-05-29 08:24 | Physician Query-Final Dx ---
Clinic Account Progress/Dx Physician Query: Please give diagnosis Please include # weeks gestation Date of Service May 27, 2020 at 17:19 RASHAUN VALIENTE May 29, 2020 08:24
== END 2020-05-27 18:25 | disposition home or self-care (01) ==
LOC: LDRP 17:19 → WSo 17:19
PROVIDERS: ATTEND Family Medicine
DX: O62.8 Other abnormalities of forces of labor (principal); Z3A.26 26 weeks gestation of pregnancy
CPT/HCPCS: 81000; 87088; 99212

== ENCOUNTER 2020-05-27 18:29 | Emergency (ER) | payer MEDICAID ==
[~2020-05-27] VITALS: Ht 168 cm; Wt 70.0 kg
--- NOTE | 2020-05-27 18:48 | ED EENT ---
History of Present Illness General Chief Complaint: Ear Problems Stated Complaint: L EAR PAIN/CLOGGED Nursing Triage Note: c/o L pain intermittent x 3 months Source: patient Exam Limitations: no limitations (REINALDO ASCENCIO) History of Present Illness Date Seen by Provider: May 27, 2020 Time Seen by Provider: 18:35 Initial Comments Candace Flower is a 25 year old female seen today due to left ear pain and hearing loss. She experience the pain when she touches her ear or uses a q-tip in that ear. She also reports having reduced hearing in her L ear that improves if she tilts her head to the left. She reports that she has had these symptoms intermittently for the past three months, and that her symptoms improve when she puts peroxide in her ear, notes wax is flushed from ear. These symptoms did not improve with peroxide this time. She has had dizziness that she attributes to her , as it has occured with each she has had. She denies having any fevers, chills, sore throat, congestion. Timing/Duration: intermittent Severity: mild Location: ear (L) Prearrival Treatment: other (peroxide) Modifying Factors: Improves With Other (left sidebending of head) Associated Symptoms: change in hearing (REINALDO ASCENCIO STUDENT) Allergies and Home Medications Allergies Coded Allergies: No Known Drug Allergies (Unverified , 06/23/18) Patient Home Medication List Home Medication List Reviewed: Yes (BRENDA KIRBY) Review of Systems Review of Systems Constitutional: No chills; dizziness (attributes to ); No fever Ears: Pain; Denies Bloody Discharge, Denies Clear Discharge, Denies Purulent Discharge Nose: denies congestion Throat: denies pain Respiratory: No cough, No short of breath Cardiovascular: No chest pain (REINALDO ASCENCIO STUDENT) All Other Systems Reviewed Negative Unless Noted: Yes (BRENDA KIRBY) Past Zenmvhl-Uzwhdh-Mzyycb Hx Patient Social History Alcohol Use: Denies Use Recreational Drug Use: No Smoking Status: Former Smoker Type Used: Cigarettes Former Smoker, Quit: Mar 20, 2018 2nd Hand Smoke Exposure: Yes Recent Foreign Travel: No Contact w/Someone Who Travel: No Recent Infectious Disease Expo: No Recent Hopitalizations: No (REINALDO ASCENCIO) Alcohol Use: Denies Use Recreational Drug Use: No Smoking Status: Former Smoker (BRENDA KIRBY) Immunizations Up To Date Tetanus Booster (TDap): Unknown PED Vaccines UTD: No Date of Influenza Vaccine: Oct 04, 2017 (REINALDO ASCENCIO STUDENT) Seasonal Allergies Seasonal Allergies: Yes (REINALDO ASCENCIO) Past Medical History Surgeries: No Respiratory: Yes Asthma Currently Using CPAP: No Currently Using BIPAP: No Cardiac: No Neurological: No Reproductive Disorders: No Female Reproductive Disorders: Denies Sexually Transmitted Disease: Yes HIV/AIDS: No Genitourinary: Yes UTI-Chronic Gastrointestinal: No Gastroesophageal Reflux Musculoskeletal: No Endocrine: Yes ("not sure if diabetic or not") Diabetes, Non-Insulin dep HEENT: No Cancer: No Psychosocial: Yes Anxiety Integumentary: No Blood Disorders: No (REINALDO ASCENCIO) Family Medical History Family history: Asthma 03 MOTHER Family history: Diabetes mellitus (type 2 diabetes) 03 MOTHER History of - disorder (anxiety, Brother has heart murmur) 03 MOTHER No Pertinent Family Hx (REINALDO ASCENCIO) Physical Exam Vital Signs Vital Signs - First Documented 05/27/20 18:37 Temp 36.7 Pulse 100 Resp 18 B/P (MAP) 112/75 (87) Pulse Ox 97 O2 Delivery Room Air (BRENDA KIRBY) Height, Weight, BMI Height: 5'3.50" Weight: 125lbs. 0oz. [id number]; 24.00 BMI Method:Stated Eyes: bilateral eye normal inspection Ears: left ear tenderness; bilateral ear auricle normal, bilateral ear canal normal, bilateral ear TM normal Nose: normal inspection Mouth/Throat: normal mouth inspection Neck: non-tender, full range of motion, supple, normal inspection Cardiovascular: normal peripheral pulses, regular rate, rhythm, no murmur Respiratory: lungs clear, normal breath sounds, no respiratory distress, no accessory muscle use Neurologic/Psychiatric: alert, normal mood/affect, oriented x 3 Skin: normal color, warm/dry (REINALDO ASCENCIO STUDENT) General Appearance: WD/WN, no apparent distress Eyes: bilateral eye PERRL, bilateral eye EOMI Ears: left ear tenderness (mild on examination); bilateral ear TM normal (mild bilateral otosclerosis with retraction on the right TM and no bulging on the left TM. No erythema, injection on the left side. Canal without erythema or swelling. Mild tenderness on examination) Nose: No active bleeding Mouth/Throat: pharynx normal (BRENDA KIRBY) Progress/Results/Core Measures Results/Orders Vital Signs/I&O 05/27/20 05/27/20 18:37 18:55 Temp 36.7 36.7 Pulse 100 100 Resp 18 18 B/P (MAP) 112/75 (87) 112/75 (87) Pulse Ox 97 97 O2 Delivery Room Air (BRENDA KIRBY) Blood Pressure Mean: 87 Progress Progress Note : Time: 18:59 Progress Note Patient was determined to have a mild effusion bilateral ears left worse than right. Put her on some safe topical steroids and have her follow-up with primary care. No evidence of soft tissue infection. Encourage her to stop putting Q-tips in her ears. Peroxide is safe but will not likely be effective with no canal obstruction. I attest that I saw this patient alongside the medical student and agree with his documented history, physical exam and review of systems except as otherwise noted. (BRENDA KIRBY) Departure Impression Primary Impression: Acute otitis media with effusion of left ear Disposition: 01 HOME, SELF-CARE Condition: Stable Departure-Patient Inst. Decision time for Depature: 18:45 (REINALDO ASCENCIO STUDENT) Referrals: TATIANA WEI MD (PCP/Family) Primary Care Physician Patient Instructions: Serous Otitis Media (DC) Add. Discharge Instructions: OTC nasal steroids, such as fluticasone/flonase 1 puff twice a day up both nostrils for one to two weeks until the symptoms improve. If your symptoms are not improved in two weeks follow up with your primary care office. All discharge instructions reviewed with patient and/or family. Voiced understanding. REINALDO ASCENCIO STUDENT May 27, 2020 18:47 BRENDA KIRBY May 27, 2020 19:19
[2020-05-27 18:55] VITALS: BP 112/75
== END 2020-05-27 18:55 | disposition home or self-care (01) ==
LOC: EDUNIT# 18:29 → ER 18:30
DX: H65.192 Other acute nonsuppurative otitis media, left ear (principal); Z87.891 Personal history of nicotine dependence; Z77.22 Contact with and (suspected) exposure to environmental tobacco smoke (acute) (chronic)
CPT/HCPCS: 99282

== ENCOUNTER 2020-05-28 17:23 | Outpatient (CLI) | payer MEDICAID ==
[~2020-05-28] VITALS: Ht 162.6 cm; Wt 70.3 kg
--- NOTE | 2020-05-28 17:30 | NUR ---
HERNANDO FORBES presented to unit via W/C from HOME, accompanied by S.O., with c/o CONTRACTIONS. HERNANDO FORBES weighed, gowned, voided, and to bed. EFHM and TOCO applied, VS taken. HERNANDO FORBES oriented to bed controls, call light, TV, heat, and A/C controls.
[2020-05-28 17:40] VITALS: BP 116/58
[2020-05-28 17:45] VITALS: BP 116/58
--- NOTE | 2020-05-28 17:57 | NUR ---
DR. SCRUGGS NOTIFIED OF PT'A ARRIVAL, C/O CTXS, FHR TRACING, AND UTERINE IRRITABILITY. ATTEMPTED TO GET URINE CULTURE PRELIMINARY FROM LAB BUT UNAVAILABLE. ORDERS RECEIVED.
[2020-05-28 18:14] VITALS: BP 106/63
[2020-05-28] MEDS ORDERED: LACTATED RINGERS 1,000 ML IV SCH (18:15)
[2020-05-28] MEDS ORDERED: ACETAMINOPHEN 500 MG TAB (TYLENOL) ONE (18:51)
[2020-05-28] MEDS ORDERED: ACETAMINOPHEN 500 MG TAB (TYLENOL) PO ONE (19:00)
[2020-05-28] MEDS ORDERED: cefTRIAXone 1,000 MG IV (ROCEPHIN) VIAL ONE (19:35)
[2020-05-28] MEDS ORDERED: WATER (STERILE) FOR INJECTION 10 ML ONE (19:35)
[2020-05-28] MEDS ORDERED: cefTRIAXone FOR IV USE 1,000 MG in WATER (STERILE) FOR INJECTION 10 ML IV ONE (19:45)
--- NOTE | 2020-05-28 19:45 | NUR ---
Pt discharge given, iv of rocephin infusing during counseling. Instruction for pt to call office friday and check up on urine culture that was sent on 05/27. Pt voices understanding, this instruction was handwritten at the top of discharge packet, and education on a/b treatment if given. Also noted on packet in rns handwriting was iv administration of 1 gram of rocephin with date and time. Pt urged to take packet to weekly office visit, pt voiced understanding to above and followed labor precaution teaching. pt denies needs at this time, no ss distress, pt now up to change for dismissal.
--- NOTE | 2020-05-28 19:55 | NUR ---
Pt ambulatory off unit at this time, accompanied by s/o with belongings in hand.
--- NOTE | 2020-05-29 08:26 | Physician Query-Final Dx ---
Clinic Account Progress/Dx Physician Query: Please give diagnosis Please include # weeks gestation Date of Service May 28, 2020 at 17:23 RASHAUN VALIENTE May 29, 2020 08:26
== END 2020-05-28 19:55 | disposition home or self-care (01) ==
LOC: LDRP 17:23 → WSo 17:23 → LDRP 17:50 → WSo 19:55
PROVIDERS: ATTEND Family Medicine
DX: O60.00 Preterm labor without delivery, unspecified trimester (principal); Z3A.26 26 weeks gestation of pregnancy
CPT/HCPCS: 96361; 96374; 99214

== ENCOUNTER 2020-07-31 19:19 | Outpatient (CLI) | payer MEDICAID ==
[~2020-07-31] VITALS: Ht 106 cm; Wt 78.6 kg
--- NOTE | 2020-07-31 19:35 | NUR ---
HERNANDO FORBES presented to unit via from ED, accompanied by adult female, with c/o DECREASED MOVEMENT. HERNANDO FORBES weighed, gowned, voided, and to bed. EFHM and TOCO applied, VS taken. HERNANDO FORBES oriented to bed controls, call light, TV, heat, and A/C controls. above and further assessments carried out per this rn.
[2020-07-31 19:48] LABS: BILIRUBIN,URINE NEGATIVE (NEGATIVE); CLARITY,URINE CLEAR; COLOR,URINE YELLOW; GLUCOSE, URINE (UA) TRACE (NEGATIVE); KETONES,URINE NEGATIVE (NEGATIVE); LEUKOCYTE ESTERASE ,URINE TRACE (NEGATIVE); NITRITE,URINE NEGATIVE (NEGATIVE); PH,URINE 6.5 (5-9); PROTEIN,URINE NEGATIVE (NEGATIVE)
[2020-07-31 19:53] LABS: BACTERIA,URINE MODERATE /HPF
[2020-07-31 20:00] VITALS: BP 106/61
--- NOTE | 2020-07-31 20:17 | NUR ---
Discharge packet given and explained, understanding voiced, pt aware it is her responsibility to picker/puller keflex rx from [facility] [place], her verbalized preferred pharmacy. Addendum: 07/31/20 at 2130 by ELEANOR JENKINS RN 2017: ambulatory off unit at this time.
--- NOTE | 2020-08-01 08:13 | Physician Query-Final Dx ---
Clinic Account Progress/Dx Physician Query: Please give diagnosis Please include # weeks gestation Date of Service Jul 31, 2020 at 19:19 RASHAUN VALIENTE Aug 01, 2020 08:13
== END 2020-07-31 20:17 | disposition home or self-care (01) ==
LOC: WSo 19:19 → LDRP 19:19 → WSo 20:17
PROVIDERS: ATTEND Family Medicine
DX: O36.8190 Decreased fetal movements, unspecified trimester, not applicable or unspecified (principal); Z3A.00 Weeks of gestation of pregnancy not specified
CPT/HCPCS: 81000; 87088; 99213

== ENCOUNTER 2020-08-10 12:13 | Outpatient (CLI) | payer MEDICAID ==
[~2020-08-10] VITALS: Ht 160 cm; Wt 80.4 kg
--- NOTE | 2020-08-10 12:23 | NUR ---
HERNANDO FORBES presented to unit via wheelchair from ED, accompanied by S.O. and RN, with c/o pressure, losing mucous plug. HERNANDO FORBES weighed, gowned, voided, and to bed. EFHM and TOCO applied, VS taken. HERNANDO FORBES oriented to bed controls, call light, TV, heat, and A/C controls.
[2020-08-10 12:30] VITALS: BP 128/83
[2020-08-10 12:54] LABS: BILIRUBIN,URINE NEGATIVE (NEGATIVE); CLARITY,URINE SL CLOUDY; COLOR,URINE YELLOW; GLUCOSE, URINE (UA) NEGATIVE (NEGATIVE); KETONES,URINE NEGATIVE (NEGATIVE); LEUKOCYTE ESTERASE ,URINE TRACE (NEGATIVE); NITRITE,URINE NEGATIVE (NEGATIVE); PH,URINE 6.5 (5-9); PROTEIN,URINE NEGATIVE (NEGATIVE)
[2020-08-10 13:06] LABS: BACTERIA,URINE MODERATE /HPF
[2020-08-10 13:11] LABS: AMORPHOUS SEDIMENT,UR RARE AMOR URATES /LPF
--- NOTE | 2020-08-10 13:14 | NUR ---
Dr. Madrid called and notified of pt arrival. aware of pt c/o and condition as pt called prior to arrival to hospital. notified of FHR, ctx pattern, SVE, UA. Orders to discharge pt to home.
--- NOTE | 2020-08-10 13:30 | NUR ---
Discharge instructions explained to pt with copy provided to pt. Pt verbalizes understanding of instructions and signs to verify. No questions or concerns voiced.
--- NOTE | 2020-08-11 08:36 | Physician Query-Final Dx ---
RASHAUN VALIENTE 08/11/20 0836: Clinic Account Progress/Dx Physician Query: Please give diagnosis Please include # weeks gestation Date of Service Aug 10, 2020 at 12:13 TATIANA WEI MD 08/14/20 0712: Clinic Account Progress/Dx DIAGNOSIS: Diagnosis 1. IUP at 35 weeks, non-labor 2. Uterine irritability RASHAUN VALIENTE Aug 11, 2020 08:36 TATIANA WEI MD Aug 14, 2020 07:12
== END 2020-08-10 13:30 | disposition home or self-care (01) ==
LOC: WSo 12:13 → LDRP 12:14 → WSo 13:30
PROVIDERS: ATTEND Family Medicine
DX: O26.893 Other specified pregnancy related conditions, third trimester (principal); Z3A.37 37 weeks gestation of pregnancy
CPT/HCPCS: 81000; 87088; 99213

== ENCOUNTER 2020-08-23 19:13 | Inpatient (IN) | payer MEDICAID ==
[~2020-08-23] VITALS: Ht 160 cm; Wt 81.0 kg
--- NOTE | 2020-08-23 19:15 | NUR ---
HERNANDO FORBES presented to unit via wheelchair from ED, accompanied by s.o, with c/o CONTRACTIONS. HERNANDO FORBES weighed, gowned, voided, and to bed. EFHM and TOCO applied, VS taken. HERNANDO FORBES oriented to bed controls, call light, TV, heat, and A/C controls.
[2020-08-23 20:28] VITALS: BP 124/83
[2020-08-23] MEDS ORDERED: D5 LR IV SOLUTION 1,000 ML IV SCH (21:11)
[2020-08-23] MEDS ORDERED: ZOLPIDEM 5 MG (AMBIEN) TAB PO ONE (21:15)
[2020-08-23] MEDS ORDERED: BUTORPHANOL INJ 2 MG/ML (STADOL) VIAL IV PRN (21:15)
[2020-08-23] MEDS ORDERED: MINERAL OIL CONCENTRATE 99.9% 15 ML UDC TOP PRN (21:15)
[2020-08-23 21:20] LABS: BASOPHILS # (AUTO) 0.1 10^3/uL (0.0-0.1); BASOPHILS % (AUTO) 0 % (0-10); EOSINOPHILS # (AUTO) 0.2 10^3/uL (0.0-0.3); EOSINOPHILS % (AUTO) 1 % (0-10); HEMATOCRIT 34 % (35-52); HEMOGLOBIN 10.7 g/dL (11.5-16.0); LYMPHOCYTES # (AUTO) 2.1 10^3/uL (1.0-4.0); LYMPHOCYTES % (AUTO) 13 % (12-44); MEAN CORPUSCULAR HEMOGLOBIN 24 pg (25-34); MEAN CORPUSCULAR HGB CONC 32 g/dL (32-36); MEAN CORPUSCULAR VOLUME 77 fL (80-99); MEAN PLATELET VOLUME 11.3 fL (9.0-12.2); MONOCYTES % (AUTO) 6 % (0-12); NEUTROPHILS # (AUTO) 12.6 10^3/uL (1.8-7.8); NEUTROPHILS % (AUTO) 79 % (42-75); PLATELET COUNT 231 10^3/uL (130-400); WHITE BLOOD COUNT 16.1 10^3/uL (4.3-11.0)
[2020-08-23] MEDS ORDERED: AMPICILLIN FOR IV USE 2,000 MG in WATER (STERILE) FOR INJECTION 14.8 ML IV SCH (21:27)
[2020-08-23] MEDS ORDERED: WATER (STERILE) FOR INJECTION 20 ML ONE (21:27)
[2020-08-23] MEDS ORDERED: AMPICILLIN 2,000 MG/14.8 ML (IV USE) ONE (21:27)
[2020-08-23 21:41] LABS: ANISOCYTOSIS SLIGHT; BAND NEUTROPHILS 0 %; BASOPHILS % (MANUAL) 0 %; EOSINOPHILS % (MANUAL) 1 %; LYMPHOCYTES % (MANUAL) 7 %; MONOCYTES % (MANUAL) 4 %; NEUTROPHILS % (MANUAL) 87 %; REACTIVE LYMPHOCYTES 1 %; TOXIC GRANULATION/VACUOLAZATIO 1+
[2020-08-23] MEDS ORDERED: CATHETER FLUSH 10 ML SYR IV SCH (22:00)
[2020-08-23] MEDS ORDERED: MEPIVACAINE (CARBOCAINE) 2% 50 ML VIAL ONE (23:37)
[2020-08-23] MEDS ORDERED: OXYTOCIN PRE-MIX DRIP 500 ML IV ONE (23:48)
--- NOTE | 2020-08-23 23:53 | History & Physical-OB ---
OB - Chief Complaint & HPI Date/Time Date of Admission: Date of Admission: Aug 23, 2020 at 21:09 Date seen by a Provider: Aug 23, 2020 Time Seen by a Provider: 23:50 Chief Complaint/History OB-Reason for Admission/Chief: Onset of Labor Hx : 3 Hx Para: 2 Expected Date of Delivery: Aug 31, 2020 Gestational Age in Weeks: 38 Gestational Age in Days: 6 Admission Nurse Assessment Rev: Yes History of Labs GBS positive at 36 weeks by perineal culture Allergies and Home Medications Allergies Coded Allergies: No Known Drug Allergies (Unverified , 07/31/20) Patient Home Medication List Home Medication List Reviewed: Yes OB - History Hx of Present Care: Yes Ultrasounds: Normal mid trimester US Obstetrical Complications: None Medical Complications: None Obstetrical History Hx Termination: No Hx Multiple Gestation: No Hx Stillbirth: No Hx Complication: No Hx Induced Hypertens: No Hx Maternal Gestational Diabet: No Delivery History Hx Dystocia: No Hx Large For Gestational Age I: No Hx Small for Gestational Age I: No Hx Section: No Hx Vaginal Delivery Post C-Sec: No Hx Blood Disorders: No Adverse Rxn to Tranfusion: No Patient Past Medical History no chronic medical problems Social History/Family History HIV/AIDS: No Recent Infectious Disease Expo: No Sexually Transmitted Disease: Yes Alcohol Use: Denies Use Recreational Drug Use: No 2nd Hand Smoke Exposure: Yes Immunizations Hepatitis A: No Hepatitis B: No Tetanus Booster (TDap): Unknown Date of Influenza Vaccine: Jun 23, 2020 OB - Admission Exam Physical Exam Vitals: Vital Signs 08/23/20 08/23/20 20:28 21:00 Temp 37.0 Pulse 101 Resp 18 Pulse Ox 98 O2 Delivery Room Air HEENT: Moist Membranes Heart: Rhythm Normal Lungs: Clear Abdomen: Gravid Cervical Dilatation: 4cm (on presentation) Effacement: 75% Station: -3 Membranes: Intact Heart Rate: 130's Accelerations: Accelerations Present Short Term Variability: Present 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 (6-25) Contractions on Admission: < 5 Minutes Apart Intensity: Moderate Labs Laboratory Tests Test 08/23/20 19:50 Range/Units White Blood Count 16.1 H 4.3-11.0 10^3/uL Red Blood Count 4.38 3.80-5.11 10^6/uL Hemoglobin 10.7 L 11.5-16.0 g/dL Hematocrit 34 L 35-52 % Mean Corpuscular Volume 77 L 80-99 fL Mean Corpuscular Hemoglobin 24 L 25-34 pg Mean Corpuscular Hemoglobin Concent 32 32-36 g/dL Red Cell Distribution Width 14.7 H 10.0-14.5 % Platelet Count 231 130-400 10^3/uL Mean Platelet Volume 11.3 9.0-12.2 fL Immature Granulocyte % (Auto) 1 % Neutrophils (%) (Auto) 79 H 42-75 % Lymphocytes (%) (Auto) 13 12-44 % Monocytes (%) (Auto) 6 0-12 % Eosinophils (%) (Auto) 1 0-10 % Basophils (%) (Auto) 0 0-10 % Neutrophils # (Auto) 12.6 H 1.8-7.8 10^3/uL Lymphocytes # (Auto) 2.1 1.0-4.0 10^3/uL Monocytes # (Auto) 1.0 0.0-1.0 10^3/uL Eosinophils # (Auto) 0.2 0.0-0.3 10^3/uL Basophils # (Auto) 0.1 0.0-0.1 10^3/uL Immature Granulocyte # (Auto) 0.1 0.0-0.1 10^3/uL Neutrophils % (Manual) 87 % Lymphocytes % (Manual) 7 % Monocytes % (Manual) 4 % Eosinophils % (Manual) 1 % Basophils % (Manual) 0 % Band Neutrophils 0 % Reactive Lymphocytes 1 % Toxic Granulation 1+ Anisocytosis SLIGHT OB - Assessment/Plan/Diagnosis Assessment Assessment: active labor Admission Dx 1. IUP at 38w6d gestation in labor 2. GBS positive (perineal culture) Admission Status: Inpatient Order (span 2 midnights) Reason for Inpatient Admission: L&D Plan Plan: Expectant Management, Other Other Plan -stadol for pain relief -ampicillin protochol for GBS TATIANA WEI MD Aug 23, 2020 23:53
[2020-08-24] VITALS (13 sets, daily range): BP systolic 108–138; BP diastolic 58–86
[2020-08-24] MEDS ORDERED: OXYTOCIN PRE-MIX DRIP 500 ML IV SCH (01:07)
--- NOTE | 2020-08-24 01:12 | OB Labor & Delivery Record ---
L&D History Date of Service Date of Service: Aug 24, 2020 History Expected Date of Delivery: Aug 31, 2020 Gestational Age in Weeks: 38 Hx : 3 Hx Para: 3 Complications Events: Routine care Operative Indications (Cesarea: N/A-Vaginal Delivery Intrapartal Events: None Other Complications GBS positive treated with Ampicillin L&D Stage1 Stage One Onset of Labor - Date: Aug 24, 2020 Onset of Labor - Time: 16:00 Monitors and Tracing Monitor Mode: Internal Heart Rate: 125 Monitor Accelerations: Uniform Monitor Decelerations: None Station: -3 Custodial Variability: Average (6-10) Short Term Variability: Present Presentation: Vertex Vital Signs VS - Last 72 Hours, by Label 08/23/20 08/23/20 20:28 21:00 Temp 37.0 Pulse 95 101 Resp 18 Pulse Ox 96 98 O2 Delivery Room Air Rupture of Membranes Spontaneous Ruture of Membrane: No Amniotic Membrane Rupture Time: 00:30 Amniotic Membrane Fluid Desc.: Clear Induction/Anesthesia Medications stadol x 1 L&D Stage2 Stage Two Stage II Date: Aug 24, 2020 Stage II Time: 00:49 Monitors and Tracing Monitor Mode: Internal Heart Rate: 125 Monitor Accelerations: Uniform Monitor 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 Variability: Average (6-10) Short Term Variability: Present Position: Left Occiput Anterior Presentation: Vertex Cord Descript/Complications Cord Vessel Description: 3 Vessels Delivery Type Infant Delivery Method: Spontaneous Vaginal Anterior Shoulder: Left Episiotomy/Perineal Laceration Laceraction(s)/Extensions: Yes Episiotomy Description: Periurethral Extnsion/lac (R) Condition of Delivery 1 minute Comment: 9 5 minute Comment: 10 Condition of Condition of : Living Exam: No Observed Abnormalities Resuscitation Resuscitation: N/A - Spontaneous Resp L&D Stage3 Stage Three Stage III Date: Aug 24, 2020 Stage III Time: 00:54 Pictocin Pitocin ml/hr: 125 Placenta Delivery Placenta Delivery: Spontaneous Delivery Summary Summary Estimated blood loss (mL): 150 Condition of Delivery Examined: Cervix Examined Post Hemorrhage: No Intervention Required none TATIANA WEI MD Aug 24, 2020 01:12
[2020-08-24] MEDS ORDERED: WITCH HAZEL(TUCKS) 40 EA JAR TOP PRN (01:15)
[2020-08-24] MEDS ORDERED: MEASLES,MUMPS,RUBELLA 1 EA INJ SQ ONE (01:15)
[2020-08-24] MEDS ORDERED: TETANUS,DIPTH,PERTUSS P/F (BOOSTRIX) 0.5 ML VIAL IM ONE (01:15)
[2020-08-24] MEDS ORDERED: BENZOCAINE/MENTHOL (DERMOPLAST) 60 ML CAN TP PRN (01:15)
[2020-08-24] MEDS ORDERED: AMPICILLIN FOR IV USE 1,000 MG in WATER (STERILE) FOR INJECTION 7.4 ML IV SCH (01:30)
[2020-08-24] MEDS ORDERED: IBUPROFEN 600 MG (MOTRIN) TAB PO ONE (01:35)
[2020-08-24] MEDS: IBUPROFEN 600 MG (MOTRIN) TAB PO SCH ×4 (01:36→20:32)
--- NOTE | 2020-08-24 02:45 | NUR ---
Pt ambulating to room at time with this RN and s.o. at side. Pt oriented to new room. packet discussed. Ice pack given per request. Pt denies needing anything further.
[2020-08-24] MEDS: ACETAMINOPHEN 500 MG TAB (TYLENOL) PO SCH ×3 (03:50→17:11)
[2020-08-24] MEDS ORDERED: CATHETER FLUSH 10 ML SYR IV SCH (06:00)
[2020-08-24] MEDS: DOCUSATE SODIUM 100 MG (COLACE) CAP PO SCH ×2 (07:54→20:31)
--- NOTE | 2020-08-24 08:00 | NUR ---
A.M. ASSESSMENT COMPLETED.VSS. CARING FOR INFANT IN ROOM. SET UP SHOWER.
--- NOTE | 2020-08-24 12:05 | NUR ---
CM/SS: Visited with pt as per Social Service Consult related to currently does not have custody of her other child. Plan: Pt to discharge to home with baby - pt lives with her significant other Summary: Pt is laying in bed at the time of the visit. Significant other is changing the baby and reports they are doing ok at this time. Discuss services for baby and she reports that she has WIC set up and will notify them on next week. She is encouraged to let them know that she had delivered this week. She reports she can do that. She has also been seen at [facility] and reports also having a therapist there. Pt reports she gave one baby up for adoption, willingly, as she was really young, and knew she could not take care of the child. She currently has a three year old, that is autistic and live in the home with her and significant other. Significant other has a 12 year old. Pt reports getting food stamps, [place] assistance, and the medical card. Post depression is discussed, she has a history of bipolar, and anxiety. Pt currently sees a therapist at [facility] and has an appt on 09/20/2020. Her therapist is Alessandra. She is encouraged to keep this appt and if she needs to get in earlier to call them or let her physician know. She verbalizes understanding. Pt is given information on other community resources and the [employer]. Pt reports she has a 3 year old son and he attends the Center and may be autistic. Pt reports she has support of family and the significant others family. Pt seems open to share and open to services for her children. She is wished well. Pt thanks this worker for visiting.
--- NOTE | 2020-08-24 14:30 | NUR ---
PT'S S.O. TOLD PITA LEI RN THAT 3 FAMILY MEMBERS FROM PT'S ESTRANGED EX-BOYFRIEND ARE ON THEIR WAY UP TO THE FLOOR. THIS RN IN ANOTHER PT ROOM AND LEARNED OF THIS AFTER THE FACT. WHEN THE 3 PEOPLE ARRIVED, PITA TOLD THEM WE DIDN'T HAVE A PT BY THAT NAME AND THEY WER NOT SUPPOSED TO BE IN THE HOSPITAL.
--- NOTE | 2020-08-24 16:00 | NUR ---
THIS RN SPOKE WITH REGISTRATION TO MAKE SURE PT IS CONFIDENTIAL PT. REQUEST ACHIEVED. (THIS A.M. DENNIS BACK DIE TRIPPER CALLED ER REGISTRATION TO MAKE THIS PT CONFIDENTIAL BUT APPARENTLY WAS NOT DONE.) ED DOOR MONITOR AND OUTPT REGISTRATION DOOR MONITOR BOTH STATED THEY DID NOT LET 3 PEOPLE IN OR SEE THEM. UNCLEAR HOW THEY WERE ABLE TO COME IN BUT PT'S S.O. STATES HE SAW THEM OUTSIDE OF CANCER CENTER AREA.
--- NOTE | 2020-08-24 17:00 | NUR ---
RESTING IN BED. INFORMED PT AND S.O. THAT PT IS A CONFIDENTIAL PT AND WE WILL NOT LET ANYONE IN AND WILL CALL THE EXTERN IF THEY TRY TO GET UP HERE AGAIN. STATES MINIMAL PAIN AT THIS TIME. CARING FOR INFANT IN ROOM.
[2020-08-25] MEDS: ACETAMINOPHEN 500 MG TAB (TYLENOL) PO SCH ×2 (00:50→08:12)
[2020-08-25 01:30] VITALS: BP 119/81
[2020-08-25] MEDS: IBUPROFEN 600 MG (MOTRIN) TAB PO SCH ×2 (02:00→08:12)
[2020-08-25 05:56] LABS: BASOPHILS # (AUTO) 0.1 10^3/uL (0.0-0.1); BASOPHILS % (AUTO) 1 % (0-10); EOSINOPHILS # (AUTO) 0.2 10^3/uL (0.0-0.3); EOSINOPHILS % (AUTO) 1 % (0-10); HEMATOCRIT 32 % (35-52); HEMOGLOBIN 9.8 g/dL (11.5-16.0); LYMPHOCYTES # (AUTO) 3.3 10^3/uL (1.0-4.0); LYMPHOCYTES % (AUTO) 22 % (12-44); MEAN CORPUSCULAR HEMOGLOBIN 24 pg (25-34); MEAN CORPUSCULAR HGB CONC 31 g/dL (32-36); MEAN CORPUSCULAR VOLUME 79 fL (80-99); MEAN PLATELET VOLUME 11.5 fL (9.0-12.2); MONOCYTES # (AUTO) 1.1 10^3/uL (0.0-1.0); MONOCYTES % (AUTO) 7 % (0-12); NEUTROPHILS # (AUTO) 10.2 10^3/uL (1.8-7.8); NEUTROPHILS % (AUTO) 68 % (42-75); PLATELET COUNT 192 10^3/uL (130-400)
[2020-08-25 08:00] VITALS: BP 113/54
--- NOTE | 2020-08-25 08:00 | NUR ---
A.M. ASSESSMENT COMPLETED. VSS. CARING FOR IN ROOM.
--- NOTE | 2020-08-25 08:06 | Discharge Summary ---
Diagnosis/Chief Complaint Date of Admission Aug 23, 2020 at 21:09 Date of Discharge August 25, 2020 Admission Diagnosis Admission Diagnosis 1. Intrauterine at 39 weeks gestation Discharge Diagnosis 1. Intrauterine at 39 weeks gestation Chief Complaint/HPI Chief Complaint/HPI 25-year-old 3 now term 3 female who presented to labor and delivery during the evening of August 23 in active labor. Patient was at 38 weeks 6 days gestation upon presentation. She had GBS status of positive obtained at [facility] at 36 weeks on perineal culture. Discharge Summary-OBS Procedures 1. Spontaneous vaginal delivery Discharge Physical Examination Allergies: Coded Allergies: No Known Drug Allergies (Unverified , 07/31/20) Vitals & I&Os Vital Sign - Last 12Hours Date Time Temp Pulse Resp B/P (MAP) Pulse Ox O2 Delivery O2 Flow Rate FiO2 08/25/20 01:30 36.0 69 18 119/81 (94) 97 Room Air General Appearance: No Acute Distress Respiratory: Clear to Auscultation Cardiovascular: Regular Rate Abdominal: Soft (with uterus firm) Hospital Course Was the Problem List Reviewed?: Yes following admission she underwent routine labor coarse. She ultimately delivered a term viable male during the icer hand of August 24, 2020. received Apgars of 9 at 1 minute and 10 at 5 minutes. See labor and delivery summary for full details following delivery she underwent routine care orders. There was no complications during the remainder of hospital stay. She was noted to have a hemoglobin of 9.8 on postdelivery day number 1. She was noted to void urine and tolerate regular diet. She was ambulatory and without any shortness of breath or leg pain. She was ready for dismissal during the late morning of August 25, 2020. Labs Laboratory Tests 08/25/20 05:43: White Blood Count 15.0H, Red Blood Count 4.03, Hemoglobin 9.8L, Hematocrit 32L, Mean Corpuscular Volume 79L, Mean Corpuscular Hemoglobin 24L, Mean Corpuscular Hemoglobin Concent 31L, Red Cell Distribution Width 14.7H, Platelet Count 192, Mean Platelet Volume 11.5, Immature Granulocyte % (Auto) 1, Neutrophils (%) (Auto) 68, Lymphocytes (%) (Auto) 22, Monocytes (%) (Auto) 7, Eosinophils (%) (Auto) 1, Basophils (%) (Auto) 1, Neutrophils # (Auto) 10.2H, Lymphocytes # (Auto) 3.3, Monocytes # (Auto) 1.1H, Eosinophils # (Auto) 0.2, Basophils # (Auto) 0.1, Immature Granulocyte # (Auto) 0.1 Discharge Instructions to patient/family Please see electronic discharge instructions given to patient. Discharge Medications Reviewed and agree with Discharge Medication list on patient's Discharge Instruction sheet Clinical Quality Measures DVT/VTE Risk/Contraindication: Risk Factor Score Per Nursin RFS Level Per Nursing on Admit: 1=Low/No VTE PPX TATIANA WEI MD Aug 25, 2020 08:06
[2020-08-25] MEDS ORDERED: IBUP-844 PO (08:07)
--- NOTE | 2020-08-25 08:08 | Discharge Inst-Women's Service ---
Discharge Inst-Women's Serv Depart Medication/Instructions New, Converted or Re-Newed RX: Transmitted to Pharmacy ([facility]) Problems Reviewed?: Yes Consults/Follow Up Additional Follow Up: Yes (Dr. Madrid in 6 weeks at [facility]) Activity Driving Instructions: No Driving for 1 Week Nothing Inside Vagina: No [place] (for 6 weeks) Diet Discharge Diet: Regular Diet Return to The Hospital For: as below Symptoms to Report to : Bleeding Excessive, Pain Increased, Fever Over 101 Degrees F, Vaginal Discharge TATIANA Irizarry MD Aug 25, 2020 08:08
[2020-08-25] MEDS: DOCUSATE SODIUM 100 MG (COLACE) CAP PO SCH (08:12)
--- NOTE | 2020-08-25 12:05 | NUR ---
DISCHARGE INSTRUCTIONS REVIEWED WITH COPY TO PT. STATES UNDERSTANDING OF ALL INSTRUCTIONS AND NEED TO F/U SCHEDULED AND NEEDED.
[2020-08-25 12:55] VITALS: BP 113/54
--- NOTE | 2020-08-25 12:55 | NUR ---
DISMISSED AMB FROM [facility] WITH INFANT IN STABLE CONDITION TO FAMILY CAR ACC BY Taylor AND PITA LEI RN.
== END 2020-08-25 12:55 | disposition home or self-care (01) | DRG 807 ==
LOC: LDRP 19:13 → WSo 19:13 → LDRP 21:09 → WSo 22:35 → LDRP 08-24 02:45
PROVIDERS: ADMIT Family Medicine; ATTEND Family Medicine
PROC: 10E0XZZ Delivery of Products of Conception, External Approach (ICD-10-PCS; principal; 2020-08-24)
PROC: 0HQ9XZZ Repair Perineum Skin, External Approach (ICD-10-PCS; 2020-08-24)
DX: O99.824 Streptococcus B carrier state complicating childbirth (principal); Z37.0 Single live birth; Z3A.39 39 weeks gestation of pregnancy; O71.82 Other specified trauma to perineum and vulva
CPT/HCPCS: 36415; 85007; 85025; 85027; 86850; 86900; 86901; 99212

== ENCOUNTER 2020-10-10 19:46 | Emergency (ER) | payer MEDICAID ==
[~2020-10-10] VITALS: Ht 162.6 cm; Wt 73.5 kg
[~2020-10-10 19:46] MED LIST changes: +IBUP-844 PO
[2020-10-10 19:50] VITALS: BP 110/72
[2020-10-10] MEDS ORDERED: ACYC400T PO (20:09)
[2020-10-10] MEDS ORDERED: AMOX500C2 PO (20:09)
--- NOTE | 2020-10-10 20:09 | ED Integumentary General ---
General Stated Complaint: R THUMB INFLAMMATION/PAIN Source: patient Exam Limitations: no limitations History of Present Illness Date Seen by Provider: Oct 10, 2020 Time Seen by Provider: 19:59 Initial Comments Patient to the ER by private conveyance with chief complaint of 2 days of progressively worsening swelling of the right thumb medial portion. Never had this before. There are no blisters or fluid draining from it. No injury to the thumb. Allergies and Home Medications Allergies Coded Allergies: No Known Drug Allergies (Unverified , 07/31/20) Home Medications Ibuprofen 600 Mg Tablet, 600 MG PO Q6HR Prescribed by: TATIANA WEI on 08/25/20 0807 Patient Home Medication List Home Medication List Reviewed: Yes Review of Systems Review of Systems Constitutional: No chills, No fever EENTM: No ear discharge, No ear pain Respiratory: No cough, No short of breath Cardiovascular: No Hx of Intervention, No palpitations Gastrointestinal: No abdominal pain, No nausea, No vomiting Past Kohpkel-Lxjouf-Slpwai Hx Patient Social History Alcohol Use: Denies Use Recreational Drug Use: No Smoking Status: Current Everyday Smoker Type Used: Cigarettes Former Smoker, Quit: February 21, 2020 2nd Hand Smoke Exposure: Yes Recent Foreign Travel: No Contact w/Someone Who Travel: No Recent Hopitalizations: No Immunizations Up To Date Tetanus Booster (TDap): Unknown PED Vaccines UTD: No Date of Influenza Vaccine: Jun 23, 2020 Seasonal Allergies Seasonal Allergies: Yes Past Medical History Surgeries: No Respiratory: Yes Asthma Currently Using CPAP: No Currently Using BIPAP: No Cardiac: No Neurological: No Reproductive Disorders: No Female Reproductive Disorders: Denies Sexually Transmitted Disease: Yes HIV/AIDS: No Genitourinary: No UTI-Chronic Gastrointestinal: No Gastroesophageal Reflux Musculoskeletal: No Endocrine: No Diabetes, Non-Insulin dep HEENT: No Cancer: No Psychosocial: Yes Anxiety, Bipolar, Depression Integumentary: No Blood Disorders: No Adverse Reaction/Blood Tranf: No Family Medical History FH: skin cancer Family history: Asthma 03 MOTHER Family history: Diabetes mellitus (type 2 diabetes) 03 MOTHER History of - disorder (anxiety, Brother has heart murmur) 03 MOTHER No Pertinent Family Hx Physical Exam Vital Signs Capillary Refill : General Appearance: WD/WN HEENT: PERRL/EOMI Cardiovascular: normal peripheral pulses, regular rate, rhythm Respiratory: no respiratory distress, no accessory muscle use Skin: other (right thumb minor erythema TTP adn inflammation. No Paronychia) Progress/Results/Core Measures Progress Progress Note : Time: 20:05 Progress Note Herpetic janice versus soft tissue infection. Plan to put her on amoxicillin and if that does not help then would suggest she follow-up with her primary care doctor for reevaluation and perhaps using acyclovir. Departure Impression Primary Impression: Infection of thumb Disposition: 01 HOME, SELF-CARE Condition: Stable Departure-Patient Inst. Decision time for Depature: 20:06 Referrals: TATIANA WEI MD (PCP/Family) Primary Care Physician Patient Instructions: Cellulitis and Erysipelas (Skin Infections), Herpetic Janice (DC) Add. Discharge Instructions: I suspect this might be a viral infection but let us put you on antibiotics for a week. If you are not seeing improvement in 3 days then start the acyclovir in addition. Keep thumb clean with regular soap and water and dry. Dress it in a clean dry bandage especially if it is draining. Symptoms should resolve in about 1 to 2 weeks. Follow-up with your primary care provider as necessary. Scripts Acyclovir (Acyclovir) 400 Mg Tablet 400 MG PO TID for 7 Days, #21 TAB 0 Refills Prov: BRENDA KIRBY 10/10/20 Amoxicillin (Amoxicillin) 500 Mg Capsule 500 MG PO TID for 7 Days, #21 CAP 0 Refills Prov: BRENDA KIRBY 10/10/20 BRENDA KIRBY Oct 10, 2020 20:08
== END 2020-10-10 20:30 | disposition home or self-care (01) ==
LOC: EDUNIT# 19:46 → ER 19:48
DX: L08.9 Local infection of the skin and subcutaneous tissue, unspecified (principal); F17.210 Nicotine dependence, cigarettes, uncomplicated; Z83.3 Family history of diabetes mellitus; Z80.8 Family history of malignant neoplasm of other organs or systems
CPT/HCPCS: 99281

== ENCOUNTER 2021-02-06 20:49 | Emergency (ER) | payer MEDICAID ==
[~2021-02-06] VITALS: Ht 160 cm; Wt 72.0 kg
[~2021-02-06 20:49] MED LIST changes: +ACYC400T PO; +SERT-413 PO; -SERT50TA9 PO
[2021-02-06 20:54] VITALS: BP_SYST 111; BP_SYST 122; BP_DIAS 62; BP_DIAS 67; BP_DIAS 73
[2021-02-06] MEDS ORDERED: ONDA4TAB11 (21:02)
[2021-02-06] MEDS ORDERED: OXCA300T18 (21:02)
[2021-02-06 21:10] LABS: BILIRUBIN,URINE NEGATIVE (NEGATIVE); CLARITY,URINE CLEAR; COLOR,URINE YELLOW; GLUCOSE, URINE (UA) NEGATIVE (NEGATIVE); KETONES,URINE NEGATIVE (NEGATIVE); LEUKOCYTE ESTERASE ,URINE NEGATIVE (NEGATIVE); NITRITE,URINE NEGATIVE (NEGATIVE); PH,URINE 5.5 (5-9); PROTEIN,URINE NEGATIVE (NEGATIVE)
[2021-02-06] MEDS ORDERED: ACETAMINOPHEN 500 MG TAB (TYLENOL) PO ONE (21:15)
[2021-02-06] MEDS ORDERED: ONDANSETRON 4 MG (ZOFRAN) ORAL DISSOLVE TAB PO ONE (21:15)
[2021-02-06 21:16] LABS: BACTERIA,URINE TRACE /HPF; RBC,URINE RARE /HPF
--- NOTE | 2021-02-06 21:20 | ED GI ---
General Chief Complaint: Abdominal/GI Problems Stated Complaint: CRAMPING, PRESSURE, 4 WEEKS Nursing Triage Note: REPORTS LOWER ABDOMINAL CRAMPING TODAY WITH PAINFUL CERVIX. ALSO C/O CONSTIPATION. Sepsis Screen: No Definite Risk Source of Information: Patient Exam Limitations: No Limitations History of Present Illness Date Seen by Provider: Feb 06, 2021 Time Seen by Provider: 20:59 Initial Comments This is a 25 yo female who presents to the ED with c/o of "cervix pain" and nausea. States she is 4 weeks and has been experiencing a lot of constipation. State she was told by her CONFIGURATION DEVELOPER to take Miralax and Zofran for her constipation and nausea. States she took Miralax earlier this morning and strained excessively to have very large hard stool. Sates her symptoms started after straining. Believes her abdomen is and cervix is sore from excessive straining. Has not taken any Zofran or Tylenol today. No fevers, chills, vomiting, vaginal bleeding or discharge. States she has f/u with Dr. Wei tomorrow. Allergies and Home Medications Allergies Coded Allergies: No Known Drug Allergies (Unverified , 07/31/20) Home Medications Ibuprofen 600 Mg Tablet, 600 MG PO Q6HR Prescribed by: TATIANA WEI on 08/25/20 0807 Patient Home Medication List Home Medication List Reviewed: Yes Review of Systems Review of Systems Constitutional: no symptoms reported EENTM: No Symptoms Reported Respiratory: No Symptoms Reported Cardiovascular: No Symptoms Reported Gastrointestinal: See HPI Genitourinary: See HPI Musculoskeletal: no symptoms reported Skin: no symptoms reported Psychiatric/Neurological: No Symptoms Reported Endocrine: No Symptoms Reported Hematologic/Lymphatic: No Symptoms Reported Past Hoidugc-Jsgxar-Waxzaj Hx Patient Social History Alcohol Use: Denies Use Smoking Status: Former Smoker Type Used: Cigarettes Former Smoker, Quit: February 21, 2020 2nd Hand Smoke Exposure: No Recent Infectious Disease Expo: No Recent Hopitalizations: No Immunizations Up To Date Tetanus Booster (TDap): Unknown PED Vaccines UTD: No Date of Influenza Vaccine: Jun 23, 2020 Seasonal Allergies Seasonal Allergies: Yes Past Medical History Surgeries: No Respiratory: Yes Asthma Currently Using CPAP: No Currently Using BIPAP: No Cardiac: No Neurological: No : Yes Last Menstrual Period: Jan 06, 2021 Reproductive Disorders: No Female Reproductive Disorders: Denies Sexually Transmitted Disease: Yes HIV/AIDS: No Genitourinary: No UTI-Chronic Gastrointestinal: No Gastroesophageal Reflux Musculoskeletal: No Endocrine: No Diabetes, Non-Insulin dep HEENT: No Cancer: No Psychosocial: Yes Anxiety, Bipolar, Depression Integumentary: No Blood Disorders: No Adverse Reaction/Blood Tranf: No Family Medical History FH: skin cancer Family history: Asthma 03 MOTHER Family history: Diabetes mellitus (type 2 diabetes) 03 MOTHER History of - disorder (anxiety, Brother has heart murmur) 03 MOTHER No Pertinent Family Hx Physical Exam Vital Signs Vital Signs - First Documented 02/06/21 20:54 Temp 36.4 Pulse 84 80 96 Resp 16 B/P (MAP) 122/62 (82) 111/73 (86) 111/67 (82) Pulse Ox 100 O2 Delivery Room Air Capillary Refill : Less Than 3 Seconds Height/Weight/BMI Height: 5'3.50" Weight: 125lbs. 0oz. 56.805453in; 28.00 BMI Method:Stated General Appearance: WD/WN, no apparent distress HEENT: PERRL/EOMI, normal ENT inspection Neck: full range of motion, normal inspection Respiratory: lungs clear, normal breath sounds Cardiovascular: normal peripheral pulses, regular rate, rhythm, no murmur Gastrointestinal: normal bowel sounds, soft, tenderness (mild suprapubic tenderness ) Genital/Rectal: normal genital exam, normal vaginal exam Extremities: normal range of motion, non-tender, normal inspection Pelvic: normal external exam, normal adnexa, no cerv. motion tender; No discharge, No vaginal bleeding; other (cervix closed ) Neurologic/Psychiatric: alert, normal mood/affect, oriented x 3 Skin: normal color, warm/dry Progress/Results/Core Measures Results/Orders Lab Results Laboratory Tests Test 02/06/21 21:04 Range/Units Urine Color YELLOW Urine Clarity CLEAR Urine pH 5.5 5-9 Urine Specific [place] >=1.030 1.016-1.022 Urine Protein NEGATIVE NEGATIVE Urine Glucose (UA) NEGATIVE NEGATIVE Urine Ketones NEGATIVE NEGATIVE Urine Nitrite NEGATIVE NEGATIVE Urine Bilirubin NEGATIVE NEGATIVE Urine Urobilinogen 0.2 < = 1.0 MG/DL Urine Leukocyte Esterase NEGATIVE NEGATIVE Urine RBC (Auto) NEGATIVE NEGATIVE Urine RBC RARE /HPF Urine WBC 2-5 /HPF Urine Squamous Epithelial Cells 2-5 /HPF Urine Crystals NONE /LPF Urine Bacteria TRACE /HPF Urine Casts NONE /LPF Urine Mucus SMALL H /LPF Urine Culture Indicated NO Urine Test POSITIVE NEGATIVE My Orders Orders - JACQUELINE ESTEBAN LICENSED AUDIOLOGIST Ua Culture If Indicated (02/06/21 20:59) Hcg,Qualitative Urine (02/06/21 21:05) Ondansetron Oral Dissolve Tab (Zofran (02/06/21 21:15) Acetaminophen Tablet (Tylenol Tablet) (02/06/21 21:15) Medications Given in ED Vital Signs/I&O 02/06/21 02/06/21 20:54 20:54 Temp 36.4 Pulse 84 84 80 96 Resp 16 B/P (MAP) 122/62 (82) 122/62 (82) 111/73 (86) 111/67 (82) Pulse Ox 100 O2 Delivery Room Air Blood Pressure Mean: 82 Progress Progress Note : Progress Note Pt. examined and in no acute distress. Symptoms are consistent with excessive straining and constipation. Vaginal/pelvic exam unremarkable. UA neg for UTI. Orders given for Tylenol and Zofran. Instructed to keep her f/u with her OB and keep her appointment with Dr. Wei tomorrow. Reviewed discharge POC and she is agreeable with plan. Departure Impression Primary Impression: Constipation Disposition: 01 HOME, SELF-CARE Condition: Improved Departure-Patient Inst. Decision time for Depature: 21:33 Referrals: TATIANA WEI MD (PCP/Family) Primary Care Physician Patient Instructions: Constipation, Adult (DC) Add. Discharge Instructions: Plan: 1. Keep follow up with Dr. Wei tomorrow as previously scheduled. 2. Continue Miralax and Zofran as directed by Dr. Wei for constipation, make sure you are drinking plenty of fluids. 3. May take Tylenol per package instruction as needed for pain. Try to avoid excessive straining. 4. Make sure you are walking frequently and increase the fiber in your diet, this will help prevent constipation. 5. Return to ER for any new or concerning symptoms. All discharge instructions reviewed with patient and/or family. Voiced understanding. JACQUELINE ESTEBAN LICENSED AUDIOLOGIST Feb 06, 2021 21:20
== END 2021-02-06 21:36 | disposition home or self-care (01) ==
LOC: EDUNIT# 20:49 → ER 20:51
DX: O99.611 Diseases of the digestive system complicating pregnancy, first trimester (principal); K59.00 Constipation, unspecified; O24.111 Pre-existing type 2 diabetes mellitus, in pregnancy, first trimester; O99.511 Diseases of the respiratory system complicating pregnancy, first trimester; J45.909 Unspecified asthma, uncomplicated; Z87.891 Personal history of nicotine dependence; Z79.899 Other long term (current) drug therapy; Z3A.01 Less than 8 weeks gestation of pregnancy
CPT/HCPCS: 81000; 84703; 99283

== ENCOUNTER 2021-02-24 18:02 | Emergency (ER) | payer MEDICAID ==
[~2021-02-24] VITALS: Ht 137 cm; Wt 71.2 kg
[~2021-02-24 18:02] MED LIST changes: -ACYC400T PO; +ACYC400T21 PO; +ONDA4TAB11; +OXCA300T18
--- NOTE | 2021-02-24 18:33 | ED Abdominal Pain ---
General Chief Complaint: Female Reproductive Stated Complaint: CRAMPING 7 WKS Nursing Triage Note: PT ABULATORY TO ER WITH C/O CRAMPING AFTER WAKING UP FROM NAP AROUND 1500. PT STATES SHE IS 7 WEEKS WITH [address] GOMEZ IS OB AND IS AWARE OF SITUATION Sepsis Screen: No Definite Risk Source of Information: Patient Exam Limitations: No Limitations History of Present Illness Date Seen by Provider: February 24, 2021 Time Seen by Provider: 18:04 Initial Comments This is a 25-year-old female presents to the ER with complaints of abdominal cramping that started today around 1500. States she took a bath hoping this would help however her symptoms were not relieved. Has not taken any abhm-lwd-vqphquw or prescription medications for pain. She is currently on pelvic rest due to chorionic hematoma. Denies vaginal bleeding or discharge. States that she is due within the next week to have another sonogram with her BOTTOM FINISHER. No fever, chills, cough, shortness of breath, nausea, vomiting. Allergies and Home Medications Allergies Coded Allergies: No Known Drug Allergies (Unverified , 07/31/20) Home Medications Cephalexin 500 Mg Tablet, 500 MG PO BID Prescribed by: JACQUELINE ESTEBAN on 02/24/211940 Ibuprofen 600 Mg Tablet, 600 MG PO Q6HR Prescribed by: TATIANA WEI on 08/25/20 0807 Patient Home Medication List Home Medication List Reviewed: Yes Review of Systems Review of Systems Constitutional: see HPI EENTM: No Symptoms Reported Respiratory: No Symptoms Reported Cardiovascular: No Symptoms Reported Gastrointestinal: See HPI Genitourinary: See HPI Musculoskeletal: no symptoms reported Skin: no symptoms reported Psychiatric/Neurological: No Symptoms Reported Endocrine: No Symptoms Reported Hematologic/Lymphatic: No Symptoms Reported Past Hizxiat-Bbmzin-Mtxzfm Hx Patient Social History Type Used: Cigarettes Former Smoker, Quit: February 21, 2020 2nd Hand Smoke Exposure: No Recent Infectious Disease Expo: No Recent Hopitalizations: No Immunizations Up To Date Tetanus Booster (TDap): Unknown PED Vaccines UTD: No Date of Influenza Vaccine: Jun 23, 2020 Seasonal Allergies Seasonal Allergies: Yes Past Medical History Surgeries: No Respiratory: Yes Asthma Currently Using CPAP: No Currently Using BIPAP: No Cardiac: No Neurological: No : Yes Expected Date of Delivery: Oct 13, 2021 Reproductive Disorders: No Female Reproductive Disorders: Denies Sexually Transmitted Disease: Yes HIV/AIDS: No Genitourinary: No UTI-Chronic Gastrointestinal: No Gastroesophageal Reflux Musculoskeletal: No Endocrine: No Diabetes, Non-Insulin dep HEENT: No Cancer: No Psychosocial: Yes Anxiety, Bipolar, Depression Integumentary: No Blood Disorders: No Adverse Reaction/Blood Tranf: No Family Medical History FH: skin cancer Family history: Asthma 03 MOTHER Family history: Diabetes mellitus (type 2 diabetes) 03 MOTHER History of - disorder (anxiety, Brother has heart murmur) 03 MOTHER No Pertinent Family Hx Physical Exam Vital Signs Vital Signs - First Documented 02/24/21 18:24 Temp 36.6 Pulse 83 Resp 18 B/P (MAP) 118/62 (80) Pulse Ox 97 O2 Delivery Room Air Capillary Refill : Less Than 3 Seconds Height/Weight/BMI Height: 5'3.50" Weight: 125lbs. 0oz. 56.278308nx; 37.00 BMI Method:Stated General Appearance: WD/WN, no apparent distress HEENT: PERRL/EOMI, normal ENT inspection, pharynx normal Neck: full range of motion, normal inspection Respiratory: lungs clear, normal breath sounds, no respiratory distress Cardiovascular: normal peripheral pulses, regular rate, rhythm Gastrointestinal: normal bowel sounds, soft, other (suprapubic tenderness) Extremities: normal range of motion, non-tender, normal inspection Neurologic/Psychiatric: no motor/sensory deficits, alert, normal mood/affect, oriented x 3 Skin: normal color, warm/dry Progress/Results/Core Measures Results/Orders Lab Results Laboratory Tests Test 02/24/21 18:33 02/24/21 19:22 Range/Units Urine Color YELLOW Urine Clarity SL CLOUDY Urine pH 6.0 5-9 Urine Specific [place] >=1.030 1.016-1.022 Urine Protein NEGATIVE NEGATIVE Urine Glucose (UA) NEGATIVE NEGATIVE Urine Ketones NEGATIVE NEGATIVE Urine Nitrite NEGATIVE NEGATIVE Urine Bilirubin NEGATIVE NEGATIVE Urine Urobilinogen 1.0 < = 1.0 MG/DL Urine Leukocyte Esterase 2+ H NEGATIVE Urine RBC (Auto) NEGATIVE NEGATIVE Urine RBC NONE /HPF Urine WBC 10-25 H /HPF Urine Squamous Epithelial Cells 5-10 /HPF Urine Crystals NONE /LPF Urine Bacteria FEW H /HPF Urine Casts NONE /LPF Urine Mucus NEGATIVE /LPF Urine Culture Indicated YES White Blood Count 8.3 4.3-11.0 10^3/uL Red Blood Count 4.65 3.80-5.11 10^6/uL Hemoglobin 12.1 11.5-16.0 g/dL Hematocrit 38 35-52 % Mean Corpuscular Volume 81 80-99 fL Mean Corpuscular Hemoglobin 26 25-34 pg Mean Corpuscular Hemoglobin Concent 32 32-36 g/dL Red Cell Distribution Width 14.4 10.0-14.5 % Platelet Count 324 130-400 10^3/uL Mean Platelet Volume 10.6 9.0-12.2 fL Sodium Level 137 135-145 MMOL/L Potassium Level 4.3 3.6-5.0 MMOL/L Chloride Level 104 98-107 MMOL/L Carbon Dioxide Level 24 21-32 MMOL/L Anion Gap 9 5-14 MMOL/L Blood Urea Nitrogen 9 7-18 MG/DL Creatinine 0.72 0.60-1.30 MG/DL Estimat Glomerular Filtration Rate > 60 BUN/Creatinine Ratio 13 Glucose Level 95 70-105 MG/DL Calcium Level 9.2 8.5-10.1 MG/DL Corrected Calcium 9.3 8.5-10.1 MG/DL Total Bilirubin 0.3 0.1-1.0 MG/DL Aspartate Amino Transf (AST/SGOT) 12 5-34 U/L Alanine Aminotransferase (ALT/SGPT) 18 0-55 U/L Alkaline Phosphatase 62 40-136 U/L Total Protein 6.8 6.4-8.2 GM/DL Albumin 3.9 3.2-4.5 GM/DL Human Chorionic Gonadotropin, Quant [id number] H <5 MIU/ML My Orders Orders - JACQUELINE ESTEBAN EDUCATION TEACHER Ua Culture If Indicated (02/24/21 18:04) Hcg,Quantitative (02/24/21 18:33) Cbc No Diff (02/24/21 18:38) Comprehensive Metabolic Panel (02/24/21 18:38) Urine Culture (02/24/21 18:33) Acetaminophen Tablet (Tylenol Tablet) (02/24/21 19:00) Cephalexin Capsule (Keflex Capsule) (02/24/21 19:30) Cephalexin Capsule (Keflex Capsule) (02/24/21 19:26) Cephalexin Capsule (Keflex Capsule) (02/24/21 19:27) Medications Given in ED Vital Signs/I&O 02/24/21 02/24/21 18:24 20:19 Temp 36.6 36.6 Pulse 83 83 Resp 18 18 B/P (MAP) 118/62 (80) 118/62 (80) Pulse Ox 97 97 O2 Delivery Room Air Blood Pressure Mean: 80 Progress Progress Note : Progress Note Patient examined and in no acute distress. UA shows positive UTI. Labs reviewed and are unremarkable. hCG 158,000. heart tones 150bpm. Given Tylenol for pain. Discussed following up with her primary care provider and returning for any new or worsening symptoms. Reviewed discharge plan of care and she was agreeable with plan. No questions or concerns at time of discharge. Departure Impression Primary Impression: Urinary tract infection Disposition: HOME, SELF-CARE Condition: Improved Departure-Patient Inst. Referrals: TATIANA WEI MD (PCP/Family) Primary Care Physician Patient Instructions: Urinary Tract Infection, Adult (DC) Add. Discharge Instructions: Plan: 1. Follow up with your OB next week if symptoms persist. 2. Take Tylenol as needed for pain per package. 3. Continue pelvic rest. 4. Take Keflex as directed and complete full course. 5. Return to ER for any new, concerning, or worsening symptoms. All discharge instructions reviewed with patient and/or family. Voiced understanding. Scripts Cephalexin (Cephalexin) 500 Mg Tablet 500 MG PO BID for 7 Days, #14 TAB 0 Refills Prov: JACQUELINE ESTEBAN APRN 02/24/21 Copy Copies To 1: TATIANA WEI MD, STORMY D APRN February 24, 2021 18:33
[2021-02-24 18:39] LABS: BILIRUBIN,URINE NEGATIVE (NEGATIVE); CLARITY,URINE SL CLOUDY; COLOR,URINE YELLOW; GLUCOSE, URINE (UA) NEGATIVE (NEGATIVE); KETONES,URINE NEGATIVE (NEGATIVE); LEUKOCYTE ESTERASE ,URINE 2+ (NEGATIVE); NITRITE,URINE NEGATIVE (NEGATIVE); PROTEIN,URINE NEGATIVE (NEGATIVE)
[2021-02-24 18:45] LABS: BACTERIA,URINE FEW /HPF
[2021-02-24] MEDS ORDERED: ACETAMINOPHEN 500 MG TAB (TYLENOL) PO ONE (19:00)
[2021-02-24] MEDS ORDERED: CEPHALEXIN 250 MG (KEFLEX) CAP PO ONE ×3 (19:26→19:30)
[2021-02-24 19:30] LABS: HEMOGLOBIN 12.1 g/dL (11.5-16.0); MEAN PLATELET VOLUME 10.6 fL (9.0-12.2); WHITE BLOOD COUNT 8.3 10^3/uL (4.3-11.0)
[2021-02-24] MEDS ORDERED: CEPH500T PO (19:41)
[2021-02-24 19:49] LABS: ALANINE AMINOTRANSFERASE 18 U/L (0-55); ALBUMIN 3.9 GM/DL (3.2-4.5); ALKALINE PHOSPHATASE 62 U/L (40-136); BILIRUBIN,TOTAL 0.3 MG/DL (0.1-1.0); BUN/CREATININE RATIO 13; CALCIUM 9.2 MG/DL (8.5-10.1); CARBON DIOXIDE 24 MMOL/L (21-32); CHLORIDE 104 MMOL/L (98-107); CREATININE SERUM 0.72 MG/DL (0.60-1.30); GFR ESTIMATED > 60; GLUCOSE 95 MG/DL (70-105); POTASSIUM 4.3 MMOL/L (3.6-5.0); SODIUM 137 MMOL/L (135-145); TOTAL PROTEIN 6.8 GM/DL (6.4-8.2)
[2021-02-24 20:19] VITALS: BP 118/62
== END 2021-02-24 20:19 | disposition home or self-care (01) ==
LOC: EDUNIT# 18:02 → ER 18:03
DX: O26.899 Other specified pregnancy related conditions, unspecified trimester (principal); N39.0 Urinary tract infection, site not specified; J45.909 Unspecified asthma, uncomplicated; E11.9 Type 2 diabetes mellitus without complications; Z3A.00 Weeks of gestation of pregnancy not specified; Z87.891 Personal history of nicotine dependence
CPT/HCPCS: 36415; 80053; 81000; 84702; 85027; 87088

== ENCOUNTER 2021-03-03 15:53 | Emergency (ER) | payer MEDICAID ==
[~2021-03-03] VITALS: Ht 162 cm; Wt 71.0 kg
[~2021-03-03 15:53] MED LIST changes: +CEPH500T PO
[2021-03-03] MEDS ORDERED: CEPH500C (16:10)
[2021-03-03] MEDS ORDERED: PROM25TA14 (16:10)
[2021-03-03 16:29] LABS: BILIRUBIN,URINE NEGATIVE (NEGATIVE); CLARITY,URINE SL CLOUDY; COLOR,URINE YELLOW; GLUCOSE, URINE (UA) NEGATIVE (NEGATIVE); KETONES,URINE TRACE (NEGATIVE); LEUKOCYTE ESTERASE ,URINE TRACE (NEGATIVE); NITRITE,URINE NEGATIVE (NEGATIVE); PROTEIN,URINE TRACE (NEGATIVE)
--- NOTE | 2021-03-03 16:36 | ED GU-Female ---
General Chief Complaint: Female Reproductive Stated Complaint: 8 WKS PREG/WEAK Nursing Triage Note: ARRIVED VIA EMS FROM HOME. PT IS 8 WEEKS GESTATION AND STATES SHE STARTED HAVING ABD CRAMPING ON THE TOILET AND WAS NOT ABLE TO GET SELF OFF AND CALLED EMS. PT IS ON VAGINAL REST DUE TO SOME BLEEDING AROUND THE CERVIX. PT IS CURRENTLY ON A ABX FOR A UTI. STATES IT LOCKETT WHEN SHE PEES AND HAS NOT TAKEN HER ABX FOR TWO DAYS. Nursing Sepsis Screen: No Definite Risk Source: patient Exam Limitations: no limitations History of Present Illness Date Seen by Provider: March 03, 2021 Time Seen by Provider: 16:34 Initial Comments To ER by EMS with reports of severe lower abdominal cramping that feels like contractions. She is 8 weeks . No bleeding. Timing/Duration: just prior to arrival, getting worse Severity/Quality: cramping Location: unknown Radiation: none Activities at Onset: none Prior Genitourinary Problems: none Associated Symptoms: denies symptoms Allergies and Home Medications Allergies Coded Allergies: No Known Drug Allergies (Unverified , 07/31/20) Home Medications Cefuroxime Axetil 250 Mg Tablet, 250 MG PO BID Prescribed by: GLO BLOOM on 03/03/21 1744 Patient Home Medication List Home Medication List Reviewed: Yes Review of Systems Review of Systems Constitutional: see HPI EENTM: see HPI Respiratory: no symptoms reported Cardiovascular: no symptoms reported Genitourinary: no symptoms reported Expected Date of Delivery: Oct 13, 2021 Musculoskeletal: no symptoms reported Skin: no symptoms reported Psychiatric/Neurological: No Symptoms Reported Endocrine: No Symptoms Reported Hematologic/Lymphatic: No Symptoms Reported Past Rwyutpr-Yfkryq-Rbcvvb Hx Patient Social History Type Used: Cigarettes Former Smoker, Quit: February 21, 2020 2nd Hand Smoke Exposure: No Recent Infectious Disease Expo: No Recent Hopitalizations: No Immunizations Up To Date Tetanus Booster (TDap): Unknown PED Vaccines UTD: No Date of Influenza Vaccine: Jun 23, 2020 Seasonal Allergies Seasonal Allergies: Yes Past Medical History Surgeries: No Respiratory: Yes Asthma Currently Using CPAP: No Currently Using BIPAP: No Cardiac: No Neurological: No : Yes Expected Date of Delivery: Oct 13, 2021 Reproductive Disorders: No Female Reproductive Disorders: Denies Sexually Transmitted Disease: Yes HIV/AIDS: No Genitourinary: No UTI-Chronic Gastrointestinal: No Gastroesophageal Reflux Musculoskeletal: No Endocrine: No Diabetes, Non-Insulin dep HEENT: No Cancer: No Psychosocial: Yes Anxiety, Bipolar, Depression Integumentary: No Blood Disorders: No Adverse Reaction/Blood Tranf: No Family Medical History FH: skin cancer Family history: Asthma 03 MOTHER Family history: Diabetes mellitus (type 2 diabetes) 03 MOTHER History of - disorder (anxiety, Brother has heart murmur) 03 MOTHER No Pertinent Family Hx Physical Exam Vital Signs Vital Signs - First Documented 03/03/21 15:53 Temp 36.6 Pulse 77 Resp 16 B/P (MAP) 113/76 (88) O2 Delivery Room Air Capillary Refill : Less Than 3 Seconds Height, Weight, BMI Height: 5'3.50" Weight: 125lbs. 0oz. 56.539415it; 27.00 BMI Method:Stated General Appearance: WD/WN, no apparent distress HEENT: PERRL/EOMI, normal ENT inspection Neck: non-tender Cardiovascular: regular rate, rhythm, no murmur Respiratory: normal breath sounds, no respiratory distress, no accessory muscle use Gastrointestinal: normal bowel sounds, non tender, soft Extremities: normal range of motion, non-tender Neurologic/Psychiatric: alert, normal mood/affect, oriented x 3 Skin: normal color, warm/dry Progress/Results/Core Measures Suspected Sepsis Recent Fever Within 48 Hours: No Infection Criteria Present: None New/Unexplained Altered Menta: No Sepsis Screen: No Definite Risk SIRS Temperature: Pulse: 77 Respiratory Rate: 16 Laboratory Tests 03/03/21 16:38: White Blood Count 11.0 Blood Pressure 113 /76 Mean: 88 Laboratory Tests 03/03/21 16:38: Creatinine 0.67, Platelet Count 333, Total Bilirubin 0.5 Results/Orders Lab Results Laboratory Tests Test 03/03/21 16:24 03/03/21 16:38 Range/Units Urine Color YELLOW Urine Clarity SL CLOUDY Urine pH 6.0 5-9 Urine Specific [place] >=1.030 1.016-1.022 Urine Protein TRACE H NEGATIVE Urine Glucose (UA) NEGATIVE NEGATIVE Urine Ketones TRACE H NEGATIVE Urine Nitrite NEGATIVE NEGATIVE Urine Bilirubin NEGATIVE NEGATIVE Urine Urobilinogen 1.0 < = 1.0 MG/DL Urine Leukocyte Esterase TRACE H NEGATIVE Urine RBC (Auto) NEGATIVE NEGATIVE Urine RBC NONE /HPF Urine WBC 5-10 H /HPF Urine Squamous Epithelial Cells 2-5 /HPF Urine Crystals PRESENT H /LPF Urine Calcium Oxalate Crystals MODERATE H /LPF Urine Bacteria MODERATE H /HPF Urine Casts NONE /LPF Urine Mucus MODERATE H /LPF Urine Culture Indicated YES Urine Opiates Screen NEGATIVE NEGATIVE Urine Oxycodone Screen NEGATIVE NEGATIVE Urine Methadone Screen NEGATIVE NEGATIVE Urine Propoxyphene Screen NEGATIVE NEGATIVE Urine Barbiturates Screen NEGATIVE NEGATIVE Ur Tricyclic Antidepressants Screen NEGATIVE NEGATIVE Urine Phencyclidine Screen NEGATIVE NEGATIVE Urine Amphetamines Screen NEGATIVE NEGATIVE Urine Methamphetamines Screen NEGATIVE NEGATIVE Urine Benzodiazepines Screen NEGATIVE NEGATIVE Urine Cocaine Screen NEGATIVE NEGATIVE Urine Cannabinoids Screen NEGATIVE NEGATIVE White Blood Count 11.0 4.3-11.0 10^3/uL Red Blood Count 4.99 3.80-5.11 10^6/uL Hemoglobin 12.9 11.5-16.0 g/dL Hematocrit 40 35-52 % Mean Corpuscular Volume 80 80-99 fL Mean Corpuscular Hemoglobin 26 25-34 pg Mean Corpuscular Hemoglobin Concent 32 32-36 g/dL Red Cell Distribution Width 14.8 H 10.0-14.5 % Platelet Count 333 130-400 10^3/uL Mean Platelet Volume 10.6 9.0-12.2 fL Immature Granulocyte % (Auto) 0 % Neutrophils (%) (Auto) 82 H 42-75 % Lymphocytes (%) (Auto) 11 L 12-44 % Monocytes (%) (Auto) 6 0-12 % Eosinophils (%) (Auto) 1 0-10 % Basophils (%) (Auto) 0 0-10 % Neutrophils # (Auto) 9.0 H 1.8-7.8 10^3/uL Lymphocytes # (Auto) 1.2 1.0-4.0 10^3/uL Monocytes # (Auto) 0.6 0.0-1.0 10^3/uL Eosinophils # (Auto) 0.1 0.0-0.3 10^3/uL Basophils # (Auto) 0.0 0.0-0.1 10^3/uL Immature Granulocyte # (Auto) 0.0 0.0-0.1 10^3/uL Sodium Level 138 135-145 MMOL/L Potassium Level 4.2 3.6-5.0 MMOL/L Chloride Level 104 98-107 MMOL/L Carbon Dioxide Level 22 21-32 MMOL/L Anion Gap 12 5-14 MMOL/L Blood Urea Nitrogen 12 7-18 MG/DL Creatinine 0.67 0.60-1.30 MG/DL Estimat Glomerular Filtration Rate > 60 BUN/Creatinine Ratio 18 Glucose Level 87 70-105 MG/DL Calcium Level 9.2 8.5-10.1 MG/DL Corrected Calcium 9.1 8.5-10.1 MG/DL Total Bilirubin 0.5 0.1-1.0 MG/DL Aspartate Amino Transf (AST/SGOT) 12 5-34 U/L Alanine Aminotransferase (ALT/SGPT) 15 0-55 U/L Alkaline Phosphatase 53 40-136 U/L Total Creatine Kinase 59 29-168 U/L Myoglobin 18.9 10.0-92.0 NG/ML Total Protein 7.4 6.4-8.2 GM/DL Albumin 4.1 3.2-4.5 GM/DL Human Chorionic Gonadotropin, Quant [id number] H <5 MIU/ML My Orders Orders - GLO BLOOM APRN Drug Screen Stat (Urine) (03/03/21 16:21) Cbc With Automated Diff (03/03/21 16:21) Comprehensive Metabolic Panel (03/03/21 16:21) Ed Iv/Invasive Line Start (03/03/21 16:21) Hcg,Quantitative (03/03/21 16:21) Creatine Kinase (03/03/21 16:22) Myoglobin Serum (03/03/21 16:22) Us Ob Single Fetus<14 [id number] (03/03/21 16:32) Acetaminophen Tablet/Caplet (Tylenol T (03/03/21 17:00) Ceftriaxone For Iv Use (Rocephin For I (03/03/21 17:00) Medications Given in ED Current Medications Medications Dose Ordered Sig/Adelita Route Start Time Stop Time Status Last Admin Dose Admin Acetaminophen 650 mg ONCE ONCE PO 03/03/21 17:00 03/03/21 17:01 DC 03/03/21 17:06 650 MG Ceftriaxone Sodium 1000 mg/ Sterile Water 10 ml @ 200 mls/hr ONCE ONCE IV 03/03/21 17:00 03/03/21 17:02 DC 03/03/21 17:05 200 MLS/HR Vital Signs/I&O 03/03/21 15:53 Temp 36.6 Pulse 77 Resp 16 B/P (MAP) 113/76 (88) O2 Delivery Room Air Capillary Refill : Less Than 3 Seconds Blood Pressure Mean: 88 Departure Impression Primary Impression: Abdominal cramping, bilateral lower quadrant Disposition: 01 HOME, SELF-CARE Condition: Stable Departure-Patient Inst. Decision time for Depature: 16:35 Referrals: TATIANA WEI MD (PCP/Family) Primary Care Physician Patient Instructions: Urinary Tract Infection, Adult (DC) Add. Discharge Instructions: Antibiotics as directed. Return to ER for any concerns. Follow-up with your doctor next week. All discharge instructions reviewed with patient and/or family. Voiced understanding. Scripts Cefuroxime Axetil (Cefuroxime) 250 Mg Tablet 250 MG PO BID, #10 TAB Prov: GLO BLOOM APRN 03/03/21 GLO BLOOM APRN March 03, 2021 16:36
[2021-03-03 16:42] LABS: AMPHETAMINE SCREEN, URINE NEGATIVE (NEGATIVE); BARBITURATE SCREEN URINE NEGATIVE (NEGATIVE); BENZODIAZEPINES SCREEN URINE NEGATIVE (NEGATIVE); CANNABINOID SCREEN, URINE NEGATIVE (NEGATIVE); COCAINE SCREEN URINE NEGATIVE (NEGATIVE); METHADONE STAT NEGATIVE (NEGATIVE); METHAMPHETAMINE SCREEN URINE S NEGATIVE (NEGATIVE); OPIATE SCREEN URINE NEGATIVE (NEGATIVE); OXYCODONE STAT NEGATIVE (NEGATIVE); PROPOXYPHENE STAT NEGATIVE (NEGATIVE); TRICYCLIC ANTIDEPRESSANTS SCRE NEGATIVE (NEGATIVE)
[2021-03-03 16:47] LABS: BASOPHILS % (AUTO) 0 % (0-10); EOSINOPHILS # (AUTO) 0.1 10^3/uL (0.0-0.3); EOSINOPHILS % (AUTO) 1 % (0-10); HEMATOCRIT 40 % (35-52); HEMOGLOBIN 12.9 g/dL (11.5-16.0); LYMPHOCYTES # (AUTO) 1.2 10^3/uL (1.0-4.0); LYMPHOCYTES % (AUTO) 11 % (12-44); MEAN CORPUSCULAR HEMOGLOBIN 26 pg (25-34); MEAN CORPUSCULAR HGB CONC 32 g/dL (32-36); MEAN CORPUSCULAR VOLUME 80 fL (80-99); MEAN PLATELET VOLUME 10.6 fL (9.0-12.2); MONOCYTES # (AUTO) 0.6 10^3/uL (0.0-1.0); MONOCYTES % (AUTO) 6 % (0-12); NEUTROPHILS % (AUTO) 82 % (42-75); PLATELET COUNT 333 10^3/uL (130-400)
[2021-03-03 16:50] LABS: BACTERIA,URINE MODERATE /HPF
[2021-03-03 16:51] LABS: CALCIUM OXALATE CRYSTALS,UR MODERATE /LPF
[2021-03-03 16:54] LABS: ALBUMIN 4.1 GM/DL (3.2-4.5)
[2021-03-03 16:55] LABS: CHLORIDE 104 MMOL/L (98-107); POTASSIUM 4.2 MMOL/L (3.6-5.0); SODIUM 138 MMOL/L (135-145)
[2021-03-03 16:56] LABS: CALCIUM 9.2 MG/DL (8.5-10.1)
[2021-03-03 16:57] LABS: GLUCOSE 87 MG/DL (70-105); TOTAL PROTEIN 7.4 GM/DL (6.4-8.2)
[2021-03-03 16:58] LABS: CARBON DIOXIDE 22 MMOL/L (21-32)
[2021-03-03 16:59] LABS: BILIRUBIN,TOTAL 0.5 MG/DL (0.1-1.0)
[2021-03-03 17:00] LABS: ALKALINE PHOSPHATASE 53 U/L (40-136)
[2021-03-03] MEDS ORDERED: ACETAMINOPHEN 325 MG TABLET PO ONE (17:00)
[2021-03-03] MEDS ORDERED: cefTRIAXone FOR IV USE 1,000 MG in WATER (STERILE) FOR INJECTION 10 ML IV ONE (17:00)
[2021-03-03 17:01] LABS: CREATININE SERUM 0.67 MG/DL (0.60-1.30); GFR ESTIMATED > 60
[2021-03-03 17:02] LABS: BUN/CREATININE RATIO 18
[2021-03-03 17:03] LABS: ALANINE AMINOTRANSFERASE 15 U/L (0-55)
[2021-03-03 17:04] LABS: CREATINE KINASE 59 U/L (29-168)
[2021-03-03] MEDS ORDERED: CEFU250T80 PO (17:44)
[2021-03-03 17:52] VITALS: BP 113/76
--- NOTE | 2021-03-03 19:44 | Diagnostic Imaging Report ---
PROCEDURE: US OB single fetus <14 wks. TECHNIQUE: Multiple real-time grayscale images were obtained over the gravid uterus in various projections. INDICATION: Pelvic cramping during . CORRELATION STUDY: None. FINDINGS: Uterus is 10.6 x 7.3 x 8.0 cm. There is an intrauterine fluid collection by the gestational sac. Truman-rump length measures 21.3 mm, sonographically estimated age of 8 weeks 6 days. cardiac activity 185 bpm. Yolk sac is present. Imaging maternal adnexa demonstrates nonvisualization of either ovary. IMPRESSION: Limited obstetrical sonogram demonstrates a viable intrauterine , sonographic estimated age is 8 weeks 6 days for estimated date of delivery 10/07/2021. Mild tachycardia. Otherwise unremarkable appearance. Dictated by: Dictated on workstation # [id number]
== END 2021-03-03 17:52 | disposition home or self-care (01) ==
LOC: EDUNIT# 15:53 → ER 15:54
DX: O26.891 Other specified pregnancy related conditions, first trimester (principal); R10.32 Left lower quadrant pain; R10.31 Right lower quadrant pain; J45.909 Unspecified asthma, uncomplicated; E11.9 Type 2 diabetes mellitus without complications; Z87.891 Personal history of nicotine dependence; Z3A.08 8 weeks gestation of pregnancy
CPT/HCPCS: 36415; 76801; 80053; 80306; 81000; 82550; 83874; 84702; 85025; 87088

== ENCOUNTER 2021-03-26 18:36 | Emergency (ER) | payer MEDICAID ==
[~2021-03-26] VITALS: Ht 165 cm; Wt 72.5 kg
[~2021-03-26 18:36] MED LIST changes: +CEPH500C; +PROM25TA14
--- NOTE | 2021-03-26 18:49 | ED Abdominal Pain ---
General Chief Complaint: Abdominal/GI Problems Stated Complaint: PELVIC PRESSURE,11 WEEKS Source of Information: Patient History of Present Illness Date Seen by Provider: Mar 26, 2021 Time Seen by Provider: 18:38 Initial Comments PT ARRIVES VIA POV FROM HOME C/O PELVIC PRESSURE X 2 DAYS STATES "IT FEELS LIKE SOMONE IS PINCHING AND PUNCHING ME" PT STATES SHE IS 11 WEEKS WITH LMP 01/06/21 PT IS AB 0--LAST CHILD DELIVERED 08/24/20. ALL NORMAL 'S WITHOUT CO MPLICATIONS. NO VAGINAL BLEEDING OR DISCHARGE NO URINARY SYMPTOMS NO FEVER NO NAUSEA/VOMITING HAD FIRST OB APPOINTMENT WITH DR. WEI AT [facility] LAST FRIDAY, AND STATES SHE IS SUPPOSED TO HAVE AN ULTRASOUND THIS WEEK THROUGH [facility], BUT IT HAS NOT BEEN SET UP YET. ALSO STATES SHE WAS SUPPOSED TO HAVE HAD LAB AT [facility] DONE, BUT HAS NOT GOTTEN AROUND TO GETTING IT DONE--STATES "I KEEP FORGETTING TO DO THAT". STATES SHE WILL GO TO [facility] TOMORROW AND GET IT DONE. PT WITH MULTITUDE OF VISITS, ESPECIALLY WITH PRIOR PREGNANCIES FOR ABDOMINAL PAIN COMPLAINTS PT SEEN HERE 02/24/21 FOR CRAMPING AND DX WITH UTI. PT HAD ALREADY BEEN ON PELVIC REST FOR CHRIONIC HEMORRHAGE AT THE TIME OF THAT VISIT. PT SEEN AGAIN 03/03/21 FOR CRAMPING. HAD NORMAL IUP ON ULTRASOUND AT THAT VISIT, NO CHRIONIC BLEEDING NOTED ON THAT ULTRASOUND. PCP:[facility] PHYSICIAN CODING SPECIALIST: DR. WEI --SEES HIM AT [facility] Allergies and Home Medications Allergies Coded Allergies: No Known Drug Allergies (Unverified , 07/31/20) Home Medications Cefuroxime Axetil 250 Mg Tablet, 250 MG PO BID Prescribed by: GLO BLOOM on 03/03/21 6779 Patient Home Medication List Home Medication List Reviewed: Yes Review of Systems Review of Systems Constitutional: no symptoms reported Respiratory: No Symptoms Reported Cardiovascular: No Symptoms Reported Gastrointestinal: See HPI, Abdominal Pain; Denies Nausea, Denies Vomiting Genitourinary: See HPI Musculoskeletal: no symptoms reported Skin: no symptoms reported Psychiatric/Neurological: No Symptoms Reported Endocrine: No Symptoms Reported Past Zfdyikm-Zfmwkr-Kbmnra Hx Past Med/Social Hx: Reviewed and Corrections made Patient Social History Alcohol Use: Denies Use Drug of Choice: DENIES Smoking Status: Former Smoker Type Used: Cigarettes Former Smoker, Quit: February 21, 2020 2nd Hand Smoke Exposure: No Recent Hopitalizations: No Immunizations Up To Date Tetanus Booster (TDap): Unknown PED Vaccines UTD: No Date of Influenza Vaccine: Jun 23, 2020 Seasonal Allergies Seasonal Allergies: Yes Past Medical History Surgeries: No Respiratory: Yes Asthma Currently Using CPAP: No Currently Using BIPAP: No Cardiac: No Neurological: No Hx : 4 Hx Para: 3 Hx Total # of Abortions (Sp): 0 Reproductive Disorders: No Female Reproductive Disorders: Denies Sexually Transmitted Disease: Yes HIV/AIDS: No Genitourinary: Yes UTI-Chronic Gastrointestinal: Yes Gastroesophageal Reflux Musculoskeletal: No Endocrine: Yes Diabetes, Non-Insulin dep HEENT: No Cancer: No Psychosocial: Yes Anxiety, Bipolar, Depression Integumentary: No Blood Disorders: No Adverse Reaction/Blood Tranf: No Family Medical History FH: skin cancer Family history: Asthma 03 MOTHER Family history: Diabetes mellitus (type 2 diabetes) 03 MOTHER History of - disorder (anxiety, Brother has heart murmur) 03 MOTHER No Pertinent Family Hx Physical Exam Vital Signs Vital Signs - First Documented 03/26/21 18:40 Temp 35.9 Pulse 75 Resp 16 B/P (MAP) 114/54 (74) O2 Delivery Room Air Capillary Refill : Height/Weight/BMI Height: 5'3.50" Weight: 125lbs. 0oz. 56.220000id; 27.00 BMI Method:Stated General Appearance: WD/WN, no apparent distress, other (WALKS UPRIGHT AND MOVES WITHOUT DIFFICULTY) Respiratory: normal breath sounds, no respiratory distress, no accessory muscle use Cardiovascular: regular rate, rhythm, no murmur Gastrointestinal: normal bowel sounds, non tender, soft Extremities: normal inspection Back: no CVA tenderness Neurologic/Psychiatric: no motor/sensory deficits, alert, normal mood/affect, oriented x 3 Skin: normal color, warm/dry; No rash; tattoos/piercings (TATTOOS) Progress/Results/Core Measures Results/Orders Lab Results Laboratory Tests Test 03/26/21 18:43 Range/Units Urine Color YELLOW Urine Clarity CLEAR Urine pH 8.0 5-9 Urine Specific [place] 1.020 1.016-1.022 Urine Protein NEGATIVE NEGATIVE Urine Glucose (UA) NEGATIVE NEGATIVE Urine Ketones NEGATIVE NEGATIVE Urine Nitrite NEGATIVE NEGATIVE Urine Bilirubin NEGATIVE NEGATIVE Urine Urobilinogen 0.2 < = 1.0 MG/DL Urine Leukocyte Esterase 1+ H NEGATIVE Urine RBC (Auto) NEGATIVE NEGATIVE Urine RBC NONE /HPF Urine WBC 2-5 /HPF Urine Crystals PRESENT H /LPF Urine Amorphous Sediment RARE SHU PHOSPHATE H /LPF Urine Bacteria FEW H /HPF Urine Casts NONE /LPF Urine Mucus NEGATIVE /LPF Urine Culture Indicated YES Urine Opiates Screen NEGATIVE NEGATIVE Urine Oxycodone Screen NEGATIVE NEGATIVE Urine Methadone Screen NEGATIVE NEGATIVE Urine Propoxyphene Screen NEGATIVE NEGATIVE Urine Barbiturates Screen NEGATIVE NEGATIVE Ur Tricyclic Antidepressants Screen NEGATIVE NEGATIVE Urine Phencyclidine Screen NEGATIVE NEGATIVE Urine Amphetamines Screen NEGATIVE NEGATIVE Urine Methamphetamines Screen NEGATIVE NEGATIVE Urine Benzodiazepines Screen NEGATIVE NEGATIVE Urine Cocaine Screen NEGATIVE NEGATIVE Urine Cannabinoids Screen NEGATIVE NEGATIVE My Orders Orders - HERNANDO SUNSHINE DO Drug Screen Stat (Urine) (03/26/21 18:43) Ua Culture If Indicated (03/26/21 18:43) Heart Tones (03/26/21 18:51) Urine Culture (03/26/21 18:43) Vital Signs/I&O 03/26/21 18:40 Temp 35.9 Pulse 75 Resp 16 B/P (MAP) 114/54 (74) O2 Delivery Room Air Progress Progress Note : Progress Note FHT'S 170 Departure Impression Primary Impression: UTI IN EARLY Disposition: 01 HOME, SELF-CARE Condition: Stable Departure-Patient Inst. Referrals: TATIANA WEI MD (PCP/Family) Primary Care Physician Patient Instructions: Urinary Tract Infection, Adult (DC), Urinary Tract Infections in Add. Discharge Instructions: TYLENOL NEEDED FOR PAIN FOLLOW UP WITH [facility] AND DR. WEI THIS WEEK FOR ROUTINE LAB AND ULTRASOUND PREVIOUSLY ADVISED. FOLLOW UP WITH DR. WEI IN 2-3 DAYS IF NO BETTER All discharge instructions reviewed with patient and/or family. Voiced understanding. Scripts Nitrofurantoin Monohyd/M-Cryst (Macrobid 100 mg Capsule) 100 Mg Capsule 1 TAB PO BID, #20 CAP Prov: HERNANDO SUNSHINE DO 03/26/21 HERNANDO SUNSHINE DO Mar 26, 2021 18:49
[2021-03-26 18:58] LABS: BILIRUBIN,URINE NEGATIVE (NEGATIVE); CLARITY,URINE CLEAR; COLOR,URINE YELLOW; GLUCOSE, URINE (UA) NEGATIVE (NEGATIVE); KETONES,URINE NEGATIVE (NEGATIVE); LEUKOCYTE ESTERASE ,URINE 1+ (NEGATIVE); NITRITE,URINE NEGATIVE (NEGATIVE); PROTEIN,URINE NEGATIVE (NEGATIVE)
[2021-03-26 19:14] LABS: AMORPHOUS SEDIMENT,UR RARE AMOR PHOSPHATE /LPF; BACTERIA,URINE FEW /HPF
[2021-03-26 19:16] LABS: AMPHETAMINE SCREEN, URINE NEGATIVE (NEGATIVE); BARBITURATE SCREEN URINE NEGATIVE (NEGATIVE); BENZODIAZEPINES SCREEN URINE NEGATIVE (NEGATIVE); CANNABINOID SCREEN, URINE NEGATIVE (NEGATIVE); COCAINE SCREEN URINE NEGATIVE (NEGATIVE); METHADONE STAT NEGATIVE (NEGATIVE); METHAMPHETAMINE SCREEN URINE S NEGATIVE (NEGATIVE); OPIATE SCREEN URINE NEGATIVE (NEGATIVE); OXYCODONE STAT NEGATIVE (NEGATIVE); PROPOXYPHENE STAT NEGATIVE (NEGATIVE); TRICYCLIC ANTIDEPRESSANTS SCRE NEGATIVE (NEGATIVE)
[2021-03-26] MEDS ORDERED: NITR-65 PO (19:18)
[2021-03-26 19:33] VITALS: BP 112/83
== END 2021-03-26 19:19 | disposition home or self-care (01) ==
LOC: EDUNIT# 18:36 → ER 18:37
DX: O23.41 Unspecified infection of urinary tract in pregnancy, first trimester (principal); O99.511 Diseases of the respiratory system complicating pregnancy, first trimester; J45.909 Unspecified asthma, uncomplicated; O24.911 Unspecified diabetes mellitus in pregnancy, first trimester; Z87.891 Personal history of nicotine dependence; Z3A.11 11 weeks gestation of pregnancy
CPT/HCPCS: 80306; 81000; 87088

== ENCOUNTER 2021-06-14 13:12 | Outpatient (CLI) | payer MEDICAID ==
[~2021-06-14] VITALS: Ht 162.6 cm; Wt 76.3 kg
[~2021-06-14 13:12] MED LIST changes: -SULF1TAB35 PO; +SULF1TAB38 PO
[2021-06-14 13:29] VITALS: BP 116/71
[2021-06-14 13:40] VITALS: BP 116/71
[2021-06-14 13:48] LABS: BILIRUBIN,URINE NEGATIVE (NEGATIVE); CLARITY,URINE CLOUDY; COLOR,URINE YELLOW; GLUCOSE, URINE (UA) NEGATIVE (NEGATIVE); KETONES,URINE NEGATIVE (NEGATIVE); LEUKOCYTE ESTERASE ,URINE 2+ (NEGATIVE); NITRITE,URINE NEGATIVE (NEGATIVE); PROTEIN,URINE NEGATIVE (NEGATIVE)
[2021-06-14 14:04] LABS: AMORPHOUS SEDIMENT,UR MOD AMOR PHOSPHATE /LPF; BACTERIA,URINE MODERATE /HPF
[2021-06-14 14:30] VITALS: BP 116/71
--- NOTE | 2021-06-15 09:10 | Physician Query-Final Dx ---
Clinic Account Progress/Dx Physician Query: Please give diagnosis Date of Service Jun 14, 2021 at 13:12 RASHAUN VALIENTE Jun 15, 2021 09:10
== END 2021-06-14 14:30 | disposition home or self-care (01) ==
LOC: WSo 13:12 → LDRP 13:15 → WSo 14:30
PROVIDERS: ATTEND Family Medicine
DX: Z34.92 Encounter for supervision of normal pregnancy, unspecified, second trimester (principal); Z3A.23 23 weeks gestation of pregnancy
CPT/HCPCS: 81000; 87088; 99212

== ENCOUNTER 2021-07-14 08:11 | Emergency (ER) | payer MEDICAID ==
[~2021-07-14] VITALS: Ht 160 cm; Wt 72.5 kg
--- NOTE | 2021-07-14 08:34 | ED Integumentary General ---
General Chief Complaint: Skin/Wound Problems Stated Complaint: STUNG BY HORNET,RIGHT ARM, SWELLING, 27 WEEKS PREG Nursing Triage Note: PT AMB TO RM 6 WITH COMPLAINT OF RIHGT ARM SWELLING AND ITCHING. WAS STUNG BY A HORNET ON FRIDAY AND SWELLING HAS INCREASED. HAS BEEN USING BENADRYL AND HYDROCORTISONE CREAM. Source: patient Exam Limitations: no limitations History of Present Illness Date Seen by Provider: Jul 14, 2021 Time Seen by Provider: 08:20 Initial Comments Patient is a 26-year-old female who presents to the emergency department with a chief complaint of swollen red area to her right forearm. Patient believes that she was "stung" by a hornet on . Patient states she has been using some hydrocortisone cream and taking a little Benadryl. She states it appeared more red and swollen and itchy in the last 24 hours. No reports of fevers, chills, nausea or vomiting. She is 26 weeks . Her OB is . She is feeling the baby move appropriately. No other complaints of systemic illness or injury. All other review of systems reviewed and negative except as stated. Timing/Duration: other (Last , 4 days) Severity: moderate Location: extremities (Right forearm) Possible Cause: insect sting Modifying Factors: improves with antihistamine, improves with prednisone Associated Symptoms: denies symptoms Allergies and Home Medications Allergies Coded Allergies: No Known Drug Allergies (Unverified , 07/31/20) Patient Home Medication List Home Medication List Reviewed: Yes Vit W-Ca,Fe,FA(<1 mg) ( Formula) 1 Each Tablet, 1 EACH PO, (Reported) Entered as Reported by: CHON GARCIA on 04/20/20 0038 Review of Systems Review of Systems Constitutional: see HPI EENTM: no symptoms reported Respiratory: no symptoms reported Cardiovascular: no symptoms reported Gastrointestinal: no symptoms reported Genitourinary: no symptoms reported : Yes Musculoskeletal: other (Swelling and redness to the right forearm) Skin: pruritus (Swelling and redness to the right forearm), rash All Other Systems Reviewed Negative Unless Noted: Yes Past Rbgheyn-Offmqg-Zhhxqf Hx Patient Social History Tobacco Use?: No Use of E-Cig and/or Vaping dev: No Substance use?: No Alcohol Use?: No Pt feels they are or have been: No Immunizations Up To Date Tetanus Booster (TDap): Unknown PED Vaccines UTD: No Seasonal Allergies Seasonal Allergies: Yes Past Medical History Surgeries: No Respiratory: Yes Asthma Currently Using CPAP: No Currently Using BIPAP: No Cardiac: No Neurological: No Reproductive Disorders: No Female Reproductive Disorders: Denies Sexually Transmitted Disease: Yes HIV/AIDS: No Genitourinary: Yes UTI-Chronic Gastrointestinal: Yes Gastroesophageal Reflux Musculoskeletal: No Endocrine: Yes Diabetes, Non-Insulin dep HEENT: No Cancer: No Psychosocial: Yes Anxiety, Bipolar, Depression Integumentary: No Blood Disorders: No Adverse Reaction/Blood Tranf: No Family Medical History FH: skin cancer Family history: Asthma 03 MOTHER Family history: Diabetes mellitus (type 2 diabetes) 03 MOTHER History of - disorder (anxiety, Brother has heart murmur) 03 MOTHER No Pertinent Family Hx Physical Exam Vital Signs Vital Signs - First Documented 07/14/21 08:16 Temp 36.1 Pulse 87 Resp 16 B/P (MAP) 128/64 (85) Pulse Ox 98 O2 Delivery Room Air Capillary Refill : Less Than 3 Seconds General Appearance: WD/WN, no apparent distress Cardiovascular: regular rate, rhythm Respiratory: lungs clear, normal breath sounds, no respiratory distress, no accessory muscle use Gastrointestinal: other (Gravid uterus) Extremities: normal range of motion, non-tender, swelling (Minimal amount of swelling noted to the volar aspect of the right forearm. Mid forearm there is a central pustule with surrounding erythema that encompasses the entire aspect of the volar forearm. No proximal lymphangitic streaking. No fluctuance is palpable. No drainage from the bite site. Not particularly tender to palp ation. Very warm.), other Neurologic/Psychiatric: alert, normal mood/affect, oriented x 3 Skin: normal color, warm/dry Lymphatic: no adenopathy Progress/Results/Core Measures Results/Orders Vital Signs/I&O 07/14/21 08:16 Temp 36.1 Pulse 87 Resp 16 B/P (MAP) 128/64 (85) Pulse Ox 98 O2 Delivery Room Air Blood Pressure Mean: 85 Departure Impression Primary Impression: Hornet sting Qualified Codes: T63.451A - Toxic effect of venom of hornets, accidental (unintentional), initial encounter Disposition: 01 HOME, SELF-CARE Condition: Stable Departure-Patient Inst. Decision time for Depature: 08:33 Referrals: TATIANA WEI MD (PCP/Family) Primary Care Physician Patient Instructions: Insect Bites and Stings Add. Discharge Instructions: Use ice/cool packs to the right forearm as needed for discomfort. You can also apply steroid cream/hydrocortisone cream 3-4 times daily to the right forearm. You can alternate this with Benadryl cream. Do not use Benadryl cream and take Benadryl by mouth at the same time. If you notice any increased redness, swelling, streaking up the arm, fever or any other emergent concerning symptoms please come back to the emergency room for reevaluation. Please keep your follow-up appointments with your OB provider. OLIVIA WYMAN MD Jul 14, 2021 08:34
[2021-07-14 08:51] VITALS: BP 128/64
== END 2021-07-14 08:51 | disposition home or self-care (01) ==
LOC: EDUNIT# 08:11 → ER 08:13
DX: T63.451A Toxic effect of venom of hornets, accidental (unintentional), initial encounter (principal); J45.909 Unspecified asthma, uncomplicated; E11.9 Type 2 diabetes mellitus without complications
CPT/HCPCS: 99281

== ENCOUNTER 2021-07-22 13:37 | Outpatient (CLI) | payer MEDICAID ==
[~2021-07-22] VITALS: Ht 162 cm; Wt 73.0 kg
[2021-07-22 13:56] VITALS: BP 108/57
--- NOTE | 2021-07-23 08:19 | Physician Query-Final Dx ---
RASHAUN VALIENTE 07/23/21 0819: Clinic Account Progress/Dx Physician Query: Please give diagnosis Please include # weeks gestation Date of Service Jul 22, 2021 at 13:37 TATIANA WEI MD 07/25/21 0707: Clinic Account Progress/Dx DIAGNOSIS: Diagnosis 1. Intrauterine at 28 weeks gestation 2. Pelvic cramping non-labor, reassuring RASHAUN VALIENTE Jul 23, 2021 08:19 TATIANA WEI MD Jul 25, 2021 07:07
== END 2021-07-22 14:27 | disposition home or self-care (01) ==
LOC: WSo 13:37 → LDRP 13:41 → WSo 14:27
PROVIDERS: ATTEND Family Medicine
DX: O47.03 False labor before 37 completed weeks of gestation, third trimester (principal); O26.853 Spotting complicating pregnancy, third trimester; Z3A.28 28 weeks gestation of pregnancy
CPT/HCPCS: 99212

== ENCOUNTER 2021-07-26 19:14 | Outpatient (CLI) | payer MEDICAID ==
[~2021-07-26] VITALS: Ht 160 cm; Wt 73.0 kg
[2021-07-26 19:53] LABS: BILIRUBIN,URINE NEGATIVE (NEGATIVE); CLARITY,URINE CLEAR; COLOR,URINE YELLOW; GLUCOSE, URINE (UA) NEGATIVE (NEGATIVE); KETONES,URINE NEGATIVE (NEGATIVE); LEUKOCYTE ESTERASE ,URINE 2+ (NEGATIVE); NITRITE,URINE NEGATIVE (NEGATIVE); PROTEIN,URINE NEGATIVE (NEGATIVE)
[2021-07-26 20:00] VITALS: BP 0/0
[2021-07-26 20:01] LABS: AMORPHOUS SEDIMENT,UR FEW AMOR URATES /LPF; BACTERIA,URINE MODERATE /HPF
[2021-07-26] MEDS ORDERED: NITROFURANTOIN 100 MG (MACROBID) CAPSULE PO ONE ×2 (20:33→20:45)
[2021-07-26 21:23] VITALS: BP 125/72
--- NOTE | 2021-07-27 08:04 | Physician Query-Final Dx ---
Clinic Account Progress/Dx Physician Query: Please give diagnosis Please include # weeks gestation Date of Service Jul 26, 2021 at 19:14 RASHAUN VALIENTE Jul 27, 2021 08:04
== END 2021-07-26 20:37 | disposition home or self-care (01) ==
LOC: WSo 19:14 → LDRP 19:16 → WSo 20:37
PROVIDERS: ATTEND Family Medicine
DX: Z34.90 Encounter for supervision of normal pregnancy, unspecified, unspecified trimester (principal); Z3A.00 Weeks of gestation of pregnancy not specified
CPT/HCPCS: 81000; 87088

== ENCOUNTER 2021-09-28 17:11 | Outpatient (CLI) | payer MEDICAID ==
[~2021-09-28] VITALS: Ht 162.5 cm; Wt 81.2 kg
[~2021-09-28 17:11] MED LIST changes: -CITA40TA11 PO; +CITA40TA13 PO; +CYCL10TA25 PO; -CYCL10TA9 PO
[2021-09-28 17:32] VITALS: BP 119/65
[2021-09-28 17:37] VITALS: BP 119/65
[2021-09-28 17:44] LABS: BILIRUBIN,URINE NEGATIVE (NEGATIVE); CLARITY,URINE CLEAR; COLOR,URINE YELLOW; GLUCOSE, URINE (UA) NEGATIVE (NEGATIVE); KETONES,URINE NEGATIVE (NEGATIVE); LEUKOCYTE ESTERASE ,URINE 2+ (NEGATIVE); NITRITE,URINE NEGATIVE (NEGATIVE); PH,URINE 6.5 (5-9); PROTEIN,URINE TRACE (NEGATIVE)
[2021-09-28 17:52] LABS: BACTERIA,URINE FEW /HPF
--- NOTE | 2021-10-01 08:10 | Physician Query-Final Dx ---
STEFFANIE10/01/21 0810: Clinic Account Progress/Dx Physician Query: Please give diagnosis Please include # weeks gestation Date of Service Sep 28, 2021 at 17:11 KACEY SCRUGGS DO 10/03/21 0902: Clinic Account Progress/Dx DIAGNOSIS: Diagnosis 38 week GA contractions, not active labor STEFFANIE,OctOct 01, 2021 08:10 KACEY SCRUGGS DO Oct 03, 2021 09:02
== END 2021-09-28 19:30 | disposition home or self-care (01) ==
LOC: LDRP 17:11 → WSo 17:11
PROVIDERS: ATTEND Family Medicine
DX: O62.9 Abnormality of forces of labor, unspecified (principal); Z3A.38 38 weeks gestation of pregnancy
CPT/HCPCS: 81000; 87088; 99213

== ENCOUNTER 2021-09-30 08:07 | Inpatient (IN) | payer MEDICAID ==
[~2021-09-30] VITALS: Ht 162.6 cm; Wt 80.9 kg
[2021-09-30] VITALS (19 sets, daily range): BP systolic 99–151; BP diastolic 59–96
[2021-09-30] MEDS ORDERED: ceFAZolin 2 GM IV Premixed 50 ML ONE (08:34)
[2021-09-30] MEDS ORDERED: OXYTOCIN PRE-MIX DRIP 500 ML IV ONE (08:34)
[2021-09-30] MEDS ORDERED: AMPICILLIN FOR IV USE 2,000 MG in WATER (STERILE) FOR INJECTION 14.8 ML IV SCH (08:40)
[2021-09-30] MEDS ORDERED: MINERAL OIL CONCENTRATE 99.9% 15 ML UDC TOP PRN (08:45)
[2021-09-30] MEDS ORDERED: D5 LR IV SOLUTION 1,000 ML IV SCH (08:45)
[2021-09-30 08:56] LABS: BILIRUBIN,URINE NEGATIVE (NEGATIVE); CLARITY,URINE CLEAR; COLOR,URINE YELLOW; GLUCOSE, URINE (UA) NEGATIVE (NEGATIVE); KETONES,URINE NEGATIVE (NEGATIVE); LEUKOCYTE ESTERASE ,URINE NEGATIVE (NEGATIVE); NITRITE,URINE NEGATIVE (NEGATIVE); PH,URINE 6.5 (5-9); PROTEIN,URINE NEGATIVE (NEGATIVE)
[2021-09-30 08:57] LABS: BASOPHILS % (AUTO) 0 % (0-10); EOSINOPHILS # (AUTO) 0.2 10^3/uL (0.0-0.3); EOSINOPHILS % (AUTO) 2 % (0-10); HEMATOCRIT 38 % (35-52); HEMOGLOBIN 12.4 g/dL (11.5-16.0); LYMPHOCYTES # (AUTO) 2.4 10^3/uL (1.0-4.0); LYMPHOCYTES % (AUTO) 17 % (12-44); MEAN CORPUSCULAR HEMOGLOBIN 27 pg (25-34); MEAN CORPUSCULAR HGB CONC 32 g/dL (32-36); MEAN CORPUSCULAR VOLUME 82 fL (80-99); MEAN PLATELET VOLUME 10.7 fL (9.0-12.2); MONOCYTES # (AUTO) 0.9 10^3/uL (0.0-1.0); MONOCYTES % (AUTO) 7 % (0-12); NEUTROPHILS # (AUTO) 10.4 10^3/uL (1.8-7.8); NEUTROPHILS % (AUTO) 74 % (42-75); PLATELET COUNT 263 10^3/uL (130-400); WHITE BLOOD COUNT 14.1 10^3/uL (4.3-11.0)
[2021-09-30 09:07] LABS: BACTERIA,URINE FEW /HPF
[2021-09-30] MEDS ORDERED: BUTORPHANOL INJ 2 MG/ML (STADOL) VIAL ONE (09:20)
--- NOTE | 2021-09-30 09:35 | History & Physical-OB ---
OB - Chief Complaint & HPI Date/Time Date of Admission: Date of Admission: Sep 30, 2021 at 08:26 Date seen by a Provider: Sep 30, 2021 Time Seen by a Provider: 09:20 Chief Complaint/History OB-Reason for Admission/Chief: Onset of Labor Hx : 4 Hx Para: 3 Expected Date of Delivery: Oct 09, 2021 Gestational Age in Weeks: 38 Gestational Age in Days: 5 Admission Nurse Assessment Rev: Yes History of Labs GBS positive Allergies and Home Medications Allergies Coded Allergies: No Known Drug Allergies (Unverified , 07/31/20) Patient Home Medication List Home Medication List Reviewed: Yes Vit W-Ca,Fe,FA(<1 mg) ( Formula) 1 Each Tablet, 1 EACH PO, (Reported) Entered as Reported by: CHON GARCIA on 04/20/20 0038 OB - History Hx of Present Care: Yes Ultrasounds: Normal mid trimester US Obstetrical Complications: None Medical Complications: None Obstetrical History Hx Termination: No Hx Multiple Gestation: No Hx Stillbirth: No Hx Complication: No Hx Induced Hypertens: No Hx Maternal Gestational Diabet: No Delivery History Hx Dystocia: No Hx Large For Gestational Age I: No Hx Small for Gestational Age I: No Hx Section: No Hx Vaginal Delivery Post C-Sec: No Hx Blood Disorders: No Adverse Rxn to Tranfusion: No Patient Past Medical History no chronic medical problems Social History/Family History 2nd Hand Smoke Exposure: No Immunizations Hepatitis A: No Hepatitis B: No Tetanus Booster (TDap): Unknown OB - Admission Exam Physical Exam HEENT: Moist Membranes Heart: Rhythm Normal Lungs: Clear Abdomen: Gravid Extremities: Normal Reflexes: Normal Cervical Dilatation: 5cm Effacement: 75% Membranes: Intact Amniotic Fluid: Clear Heart Rate: 140's Accelerations: Accelerations Present Short Term Variability: Present Jail Variability: Average (6-25) Contractions on Admission: < 5 Minutes Apart Intensity: Moderate Labs Laboratory Tests Test 09/30/21 08:30 Range/Units White Blood Count 14.1 H 4.3-11.0 10^3/uL Red Blood Count 4.68 3.80-5.11 10^6/uL Hemoglobin 12.4 11.5-16.0 g/dL Hematocrit 38 35-52 % Mean Corpuscular Volume 82 80-99 fL Mean Corpuscular Hemoglobin 27 25-34 pg Mean Corpuscular Hemoglobin Concent 32 32-36 g/dL Red Cell Distribution Width 17.0 H 10.0-14.5 % Platelet Count 263 130-400 10^3/uL Mean Platelet Volume 10.7 9.0-12.2 fL Immature Granulocyte % (Auto) 1 % Neutrophils (%) (Auto) 74 42-75 % Lymphocytes (%) (Auto) 17 12-44 % Monocytes (%) (Auto) 7 0-12 % Eosinophils (%) (Auto) 2 0-10 % Basophils (%) (Auto) 0 0-10 % Neutrophils # (Auto) 10.4 H 1.8-7.8 10^3/uL Lymphocytes # (Auto) 2.4 1.0-4.0 10^3/uL Monocytes # (Auto) 0.9 0.0-1.0 10^3/uL Eosinophils # (Auto) 0.2 0.0-0.3 10^3/uL Basophils # (Auto) 0.0 0.0-0.1 10^3/uL Immature Granulocyte # (Auto) 0.1 0.0-0.1 10^3/uL Urine Color YELLOW Urine Clarity CLEAR Urine pH 6.5 5-9 Urine Specific [place] 1.020 1.016-1.022 Urine Protein NEGATIVE NEGATIVE Urine Glucose (UA) NEGATIVE NEGATIVE Urine Ketones NEGATIVE NEGATIVE Urine Nitrite NEGATIVE NEGATIVE Urine Bilirubin NEGATIVE NEGATIVE Urine Urobilinogen 1.0 < = 1.0 MG/DL Urine Leukocyte Esterase NEGATIVE NEGATIVE Urine RBC (Auto) NEGATIVE NEGATIVE Urine RBC NONE /HPF Urine WBC NONE /HPF Urine Squamous Epithelial Cells NONE /HPF Urine Crystals NONE /LPF Urine Bacteria FEW H /HPF Urine Casts NONE /LPF Urine Mucus NEGATIVE /LPF Urine Culture Indicated NO OB - Assessment/Plan/Diagnosis Assessment Assessment: active labor Admission Dx 1. IUP at term 38w5d in active labor 2. GBS positive --vaginal at 36 weeks. Admission Status: Inpatient Order (span 2 midnights) Reason for Inpatient Admission: L&D Plan Induction Method: AROM Other Plan -no epidural desired -will give dose of stadol -AROM TATIANA WEI MD Sep 30, 2021 09:35
[2021-09-30] MEDS ORDERED: BUTORPHANOL INJ 2 MG/ML (STADOL) VIAL IV PRN (09:45)
[2021-09-30] MEDS ORDERED: MEPIVACAINE (CARBOCAINE) 2% 50 ML VIAL ONE (10:09)
[2021-09-30] MEDS: OXYTOCIN PRE-MIX DRIP 500 ML IV SCH ×2 (10:26→11:02)
--- NOTE | 2021-09-30 10:38 | OB Labor & Delivery Record ---
L&D History Date of Service Date of Service: Sep 30, 2021 History Expected Date of Delivery: Oct 09, 2021 Gestational Age in Weeks: 38 Hx : 4 Hx Para: 4 Complications Events: Routine care Operative Indications (Cesarea: N/A-Vaginal Delivery Intrapartal Events: None Other Complications GBS treated with ampicillin 1 dose of 2gm L&D Stage1 Stage One Onset of Labor - Date: Sep 30, 2021 Onset of Labor - Time: 02:00 Monitors and Tracing Monitor Mode: External Monitor Accelerations: Uniform Residential Variability: Average (6-10) Short Term Variability: Present Presentation: Vertex Signs of Distress by FHT Signs of Distress no Rupture of Membranes Spontaneous Ruture of Membrane: Yes Amniotic Membrane Rupture Time: 09:15 Amniotic Membrane Fluid Desc.: Clear Vaginal Bleeding Description: None Induction/Anesthesia Medications stadol 1mg x 1 dose L&D Stage2 Stage Two Stage II Date: Sep 30, 2021 Stage II Time: 10:24 Monitors and Tracing Monitor Mode: Internal Monitor Accelerations: Uniform Monitor Decelerations: Variable Residential Variability: Average (6-10) Short Term Variability: Present Position: Left Occiput Anterior Presentation: Vertex Signs of Distress by FHT Signs of Distress no Cord Descript/Complications Cord Vessel Description: 3 Vessels Delivery Type Infant Delivery Method: Spontaneous Vaginal Anterior Shoulder: Left Episiotomy/Perineal Laceration Laceraction(s)/Extensions: No Episiotomy Description: Periurethral Extnsion/lac (minor on R) Condition of Delivery 1 minute Comment: 9 5 minute Comment: 9 Condition of Infant Condition of Infant: Living Exam: No Observed Abnormalities Resuscitation Resuscitation: N/A - Spontaneous Resp L&D Stage3 Stage Three Stage III Date: Sep 30, 2021 Stage III Time: 10:30 Pictocin Pitocin ml/hr: 125 Placenta Delivery Placenta Delivery: Spontaneous Delivery Summary Summary Estimated blood loss (mL): 200 Condition of Delivery Examined: Cervix Examined Post Hemorrhage: No Intervention Required none TATIANA WEI MD Sep 30, 2021 10:38
[2021-09-30] MEDS ORDERED: MEASLES,MUMPS,RUBELLA 1 EA INJ SQ ONE (10:45)
[2021-09-30] MEDS ORDERED: BENZOCAINE/MENTHOL (DERMOPLAST) 56 ML CAN TP PRN (10:45)
[2021-09-30] MEDS ORDERED: NALOXONE 0.4 MG/ML 1 ML (NARCAN) VIAL IV PRN (10:45)
[2021-09-30] MEDS ORDERED: TETANUS,DIPTH,PERTUSS P/F (BOOSTRIX) 0.5 ML VIAL IM ONE (10:45)
[2021-09-30] MEDS ORDERED: WITCH HAZEL(TUCKS) 40 EA JAR TOP PRN (10:45)
[2021-09-30] MEDS: IBUPROFEN 600 MG (MOTRIN) TAB PO SCH ×3 (11:01→23:02)
[2021-09-30] MEDS: ACETAMINOPHEN 500 MG TAB (TYLENOL) PO SCH ×3 (11:01→23:02)
[2021-09-30] MEDS ORDERED: AMPICILLIN FOR IV USE 1,000 MG in WATER (STERILE) FOR INJECTION 7.4 ML IV SCH (12:45)
[2021-09-30] MEDS ORDERED: LACTATED RINGERS 1,000 ML IV SCH (13:45)
[2021-09-30] MEDS ORDERED: CATHETER FLUSH 10 ML SYR IV SCH (14:00)
[2021-09-30] MEDS: CATHETER FLUSH 10 ML SYR IV SCH (15:48)
[2021-09-30] MEDS: DOCUSATE SODIUM 100 MG (COLACE) CAP PO SCH (23:02)
[2021-10-01 04:13] VITALS: BP 116/57
[2021-10-01] MEDS: IBUPROFEN 600 MG (MOTRIN) TAB PO SCH ×4 (05:16→23:56)
[2021-10-01] MEDS: ACETAMINOPHEN 500 MG TAB (TYLENOL) PO SCH ×4 (05:16→23:56)
[2021-10-01 05:56] LABS: BASOPHILS % (AUTO) 0 % (0-10); EOSINOPHILS # (AUTO) 0.2 10^3/uL (0.0-0.3); EOSINOPHILS % (AUTO) 1 % (0-10); HEMATOCRIT 32 % (35-52); LYMPHOCYTES # (AUTO) 2.7 10^3/uL (1.0-4.0); LYMPHOCYTES % (AUTO) 20 % (12-44); MEAN CORPUSCULAR HEMOGLOBIN 26 pg (25-34); MEAN CORPUSCULAR HGB CONC 31 g/dL (32-36); MEAN CORPUSCULAR VOLUME 83 fL (80-99); MEAN PLATELET VOLUME 10.7 fL (9.0-12.2); MONOCYTES % (AUTO) 7 % (0-12); NEUTROPHILS % (AUTO) 71 % (42-75); PLATELET COUNT 215 10^3/uL (130-400)
--- NOTE | 2021-10-01 07:46 | Discharge Inst-Women's Service ---
Discharge Inst-Women's Serv Depart Medication/Instructions New, Converted or Re-Newed RX: Other Instructions May take dnlz-oxo-ikjzwqo ibuprofen may take 2-3 tablets every 6 hours as needed for cramps. Problems Reviewed?: Yes Consults/Follow Up Additional Follow Up: Yes (Dr Wei at [facility] in 6 weeks.) Activity Driving Instructions: No Driving for 1 Week Nothing Inside Vagina: No [place] (for 6 weeks.) Diet Discharge Diet: Regular Diet Return to The Hospital For: as below Symptoms to Report to : Bleeding Excessive, Fever Over 101 Degrees F, Vaginal Discharge Foul For Any Problems or Questions: Contact Your Physician TATIANA WEI MD Oct 01, 2021 07:46
[2021-10-01 08:00] VITALS: BP 116/56
[2021-10-01] MEDS: CATHETER FLUSH 10 ML SYR IV SCH (09:04)
[2021-10-01] MEDS ORDERED: CALCIUM CARBONATE 500 MG (TUMS) TAB.CHEW PO PRN (09:15)
[2021-10-01] MEDS: DOCUSATE SODIUM 100 MG (COLACE) CAP PO SCH ×2 (09:44→22:05)
[2021-10-01 12:40] VITALS: BP 119/78
--- NOTE | 2021-10-01 17:10 | Progress Note ---
Subjective Subjective/Events-last exam No complaints. No significant vaginal bleed or clots. Objective Exam Last Set of Vital Signs Vital Signs Date Time Temp Pulse Resp B/P (MAP) Pulse Ox O2 Delivery O2 Flow Rate FiO2 10/01/21 12:40 36.6 73 16 119/78 (92) 98 10/01/21 08:00 Room Air 09/30/21 10:30 15.00 Capillary Refill : I&O Intake and Output 10/01/21 00:00 Intake Total 1625 ml Balance 1625 ml Intake IV Total 1625 ml Daily Weight Change No General: No Acute Distress Lungs: Clear to Auscultation Heart: Regular Rate Abdomen: Soft (with uterus firm) Results/Procedures Lab Laboratory Tests 10/01/21 05:51: White Blood Count 14.0H, Red Blood Count 3.83, Hemoglobin 10.0L, Hematocrit 32L, Mean Corpuscular Volume 83, Mean Corpuscular Hemoglobin 26, Mean Corpuscular Hemoglobin Concent 31L, Red Cell Distribution Width 16.9H, Platelet Count 215, Mean Platelet Volume 10.7, Immature Granulocyte % (Auto) 0, Neutrophils (%) (Auto) 71, Lymphocytes (%) (Auto) 20, Monocytes (%) (Auto) 7, Eosinophils (%) (Auto) 1, Basophils (%) (Auto) 0, Neutrophils # (Auto) 10.0H, Lymphocytes # (Auto) 2.7, Monocytes # (Auto) 1.0, Eosinophils # (Auto) 0.2, Basophils # (Auto) 0.0, Immature Granulocyte # (Auto) 0.1 Assessment/Plan Assessment/Plan Admission Status: Inpatient Order (span 2 midnights) Assessment & Plan 1. S/P day 1 -routine PP care orders -home in the am of 10/02 -coordinator of rehabilitation services consult TATIANA WEI MD Oct 01, 2021 17:10
[2021-10-01 18:30] VITALS: BP 130/67
[2021-10-01 23:56] VITALS: BP 110/68
[2021-10-02 06:04] VITALS: BP 122/69
[2021-10-02] MEDS: IBUPROFEN 600 MG (MOTRIN) TAB PO SCH (06:04)
[2021-10-02] MEDS: ACETAMINOPHEN 500 MG TAB (TYLENOL) PO SCH (06:04)
--- NOTE | 2021-10-02 07:24 | Discharge Summary ---
Diagnosis/Chief Complaint Date of Admission Sep 30, 2021 at 08:26 Date of Discharge October 02, 2021 Admission Diagnosis Admission Diagnosis 1 Intrauterine at 37 weeks Discharge Diagnosis 1 Intrauterine at 37 weeks Chief Complaint/HPI Chief Complaint/HPI 26-year-old 5 now [id number] who initially presented to labor and delivery on September 30, 2021 in active labor. Her GBS status was noted to be positive from 36 week check in clinic. Discharge Summary-OBS Procedures 1. Spontaneous vaginal delivery Discharge Physical Examination Allergies: Coded Allergies: No Known Drug Allergies (Unverified , 07/31/20) Vitals & I&Os Vital Sign - Last 12Hours Date Time Temp Pulse Resp B/P (MAP) Pulse Ox O2 Delivery O2 Flow Rate FiO2 10/02/21 06:04 36.2 93 18 122/69 (86) Room Air 10/01/21 23:56 98 09/30/21 10:30 15.00 General Appearance: No Acute Distress Respiratory: Clear to Auscultation Cardiovascular: Regular Rate Abdominal: Soft (with uterus firm) Hospital Course Was the Problem List Reviewed?: Yes Patient presented to women's services on September 30, 2021 in active labor. She subsequently went on to deliver a term viable male with Apgars of 8 at 1 minute and 9 at 5 minutes. See labor and delivery note for full details. Following delivery patient underwent routine care orders. She was noted to have no complications during the remainder of hospital stay. student services director consult to due to home situation and living conditions. She was noted to tolerate regular diet. She had no shortness of breath or chest pain. Her hemoglobin in the morning of October 01 was 10.0 compared to admission of 12.4. She was felt ready for dismissal during the morning of October 02, 2021. Discharge Instructions to patient/family Please see electronic discharge instructions given to patient. Discharge Medications Reviewed and agree with Discharge Medication list on patient's Discharge Instruction sheet TATIANA WEI MD Oct 02, 2021 07:24
[2021-10-02 09:00] VITALS: BP 110/56
[2021-10-02] MEDS: DOCUSATE SODIUM 100 MG (COLACE) CAP PO SCH (09:31)
[2021-10-02 11:10] VITALS: BP 110/56
== END 2021-10-02 11:10 | disposition home or self-care (01) | DRG 807 ==
LOC: WSo 08:07 → LDRP 08:07 → WSo 08:25 → LDRP 08:26
PROVIDERS: ADMIT Family Medicine; ATTEND Family Medicine
PROC: 10E0XZZ Delivery of Products of Conception, External Approach (ICD-10-PCS; principal; 2021-09-30)
PROC: 0W8NXZZ Division of Female Perineum, External Approach (ICD-10-PCS; 2021-09-30)
PROC: 10907ZC Drainage of Amniotic Fluid, Therapeutic from Products of Conception, Via Natural or Artificial Opening (ICD-10-PCS; 2021-09-30)
DX: O99.824 Streptococcus B carrier state complicating childbirth (principal); Z37.0 Single live birth; O71.82 Other specified trauma to perineum and vulva; Z3A.38 38 weeks gestation of pregnancy; O99.344 Other mental disorders complicating childbirth; F60.3 Borderline personality disorder; F31.9 Bipolar disorder, unspecified
CPT/HCPCS: 36415; 81000; 85025; 86850; 86900; 86901; 99212

== ENCOUNTER 2022-01-07 13:28 | Emergency (ER) | payer MEDICAID ==
[~2022-01-07] VITALS: Ht 162.6 cm; Wt 72.6 kg
--- NOTE | 2022-01-07 13:55 | ED Chest Pain ---
General Chief Complaint: Chest Wall Stated Complaint: CHEST PAIN Source: patient Exam Limitations: no limitations History of Present Illness Date Seen by Provider: Jan 07, 2022 Time Seen by Provider: 13:54 Initial Comments To ER with central chest pain for 5 days rated at 10 out of 10 worsened by breathing and movement. She is taken nothing for it. No cough. She does have some shortness of breath. She was seen at the walk-in clinic and had 2 abnormal EKGs and referred to the emergency room. She does not have any EKG accompanying her. Timing/Duration: changing over time Severity/Quality: moderate Location: central Radiation: no radiation Activities at Onset: none Prior CP/Workup: no prior chest pain Allergies and Home Medications Allergies Coded Allergies: No Known Drug Allergies (Unverified , 07/31/20) Patient Home Medication List Home Medication List Reviewed: Yes Vit W-Ca,Fe,FA(<1 mg) ( Formula) 1 Each Tablet, 1 EACH PO, (Reported) Entered as Reported by: CHON GARCIA on 04/20/20 0038 Review of Systems Review of Systems Constitutional: see HPI EENTM: No Symptoms Reported Respiratory: No Symptoms Reported Cardiovascular: No Symptoms Reported Gastrointestinal: No Symptoms Reported Genitourinary: No Symptoms Reported Musculoskeletal: no symptoms reported Skin: no symptoms reported Psychiatric/Neurological: No Symptoms Reported Endocrine: No Symptoms Reported Hematologic/Lymphatic: No Symptoms Reported Past Vboejfo-Njybjt-Lkwtfu Hx Immunizations Up To Date Tetanus Booster (TDap): Unknown PED Vaccines UTD: No Seasonal Allergies Seasonal Allergies: Yes Past Medical History Surgeries: No Respiratory: Yes Asthma Currently Using CPAP: No Currently Using BIPAP: No Cardiac: No Neurological: No Reproductive Disorders: No Female Reproductive Disorders: Denies Sexually Transmitted Disease: Yes HIV/AIDS: No Genitourinary: Yes UTI-Chronic Gastrointestinal: Yes Gastroesophageal Reflux Musculoskeletal: No Endocrine: Yes Diabetes, Non-Insulin dep HEENT: No Cancer: No Psychosocial: Yes Anxiety, Bipolar, Depression Integumentary: No Blood Disorders: No Adverse Reaction/Blood Tranf: No Family Medical History FH: skin cancer Family history: Asthma 03 MOTHER Family history: Diabetes mellitus (type 2 diabetes) 03 MOTHER History of - disorder (anxiety, Brother has heart murmur) 03 MOTHER No Pertinent Family Hx Physical Exam Vital Signs Vital Signs - First Documented 01/07/22 13:44 Temp 36.8 Pulse 78 Resp 20 B/P (MAP) 129/81 (97) Pulse Ox 98 O2 Delivery Room Air Capillary Refill : Height, Weight, BMI Height: 5'3.50" Weight: 125lbs. 0oz. 56.166128rp; 30.59 BMI Method:Stated General Appearance: No Apparent Distress, WD/WN, Anxious HEENT: PERRL/EOMI Neck: Full Range of Motion, Normal Inspection Respiratory: Normal Breath Sounds, No Accessory Muscle Use, No Respiratory Di stress Cardiovascular: Regular Rate, Rhythm, Normal Peripheral Pulses Gastrointestinal: Non Tender, Soft Extremity: Normal Capillary Refill, Normal Inspection Neurologic/Psychiatric: Alert, Oriented x3 Skin: Normal Color, Warm/Dry Progress/Results/Core Measures Results/Orders My Orders Orders - GLO BLOOM APRN Cbc With Automated Diff (01/07/22 13:48) Hs C Reactive Protein (01/07/22 13:48) Comprehensive Metabolic Panel (01/07/22 13:48) Hcg,Qualitative Serum (01/07/22 13:48) Chest 1 View, Ap/Pa Only (01/07/22 13:48) Lorazepam Injection (Ativan Injection) (01/07/22 14:00) Ketorolac Injection (Toradol Injection) (01/07/22 14:00) Troponin I [place] (01/07/22 13:55) Medications Given in ED Current Medications Medications Dose Ordered Sig/Adelita Route Start Time Stop Time Status Last Admin Dose Admin Ketorolac Tromethamine 15 mg ONCE ONCE IVP 01/07/22 14:00 01/07/22 14:01 DC 01/07/22 14:01 15 MG Lorazepam 0.5 mg ONCE PRN IVP 01/07/22 14:00 01/07/22 14:01 0.5 MG Vital Signs/I&O 01/07/22 13:44 Temp 36.8 Pulse 78 Resp 20 B/P (MAP) 129/81 (97) Pulse Ox 98 O2 Delivery Room Air Departure Communication (Admissions) Her EKG is normal sinus rhythm at 68 with normal intervals no ectopy no ST segment changes Impression Primary Impression: Chest pain Disposition: 01 HOME, SELF-CARE Condition: Stable Departure-Patient Inst. Decision time for Depature: 15:22 Referrals: [facility] (PCP/Family) Primary Care Physician Patient Instructions: Chest Pain Add. Discharge Instructions: 1. Take Tylenol and ibuprofen for pain control. Return to ER for any concerns. Follow-up with your doctor later this week. All discharge instructions reviewed with patient and/or family. Voiced understanding. GLO BLOOM APRN Jan 07, 2022 13:55
[2022-01-07 14:00] LABS: BASOPHILS % (AUTO) 1 % (0-10); EOSINOPHILS # (AUTO) 0.2 10^3/uL (0.0-0.3); EOSINOPHILS % (AUTO) 3 % (0-10); HEMATOCRIT 42 % (35-52); HEMOGLOBIN 13.8 g/dL (11.5-16.0); LYMPHOCYTES # (AUTO) 2.1 10^3/uL (1.0-4.0); LYMPHOCYTES % (AUTO) 30 % (12-44); MEAN CORPUSCULAR HEMOGLOBIN 28 pg (25-34); MEAN CORPUSCULAR HGB CONC 33 g/dL (32-36); MEAN CORPUSCULAR VOLUME 84 fL (80-99); MEAN PLATELET VOLUME 10.1 fL (9.0-12.2); MONOCYTES # (AUTO) 0.6 10^3/uL (0.0-1.0); MONOCYTES % (AUTO) 8 % (0-12); NEUTROPHILS % (AUTO) 58 % (42-75); PLATELET COUNT 322 10^3/uL (130-400); WHITE BLOOD COUNT 6.9 10^3/uL (4.3-11.0)
[2022-01-07] MEDS ORDERED: KETOROLAC 30 MG/ML VIAL IVP ONE (14:00)
[2022-01-07] MEDS ORDERED: LORazepam INJ 2 MG/ML (ATIVAN) VIAL IVP PRN (14:00)
[2022-01-07 14:06] LABS: ALBUMIN 4.4 GM/DL (3.2-4.5); CHLORIDE 106 MMOL/L (98-107); POTASSIUM 4.2 MMOL/L (3.6-5.0); SODIUM 137 MMOL/L (135-145)
[2022-01-07 14:08] LABS: CALCIUM 9.6 MG/DL (8.5-10.1)
[2022-01-07 14:09] LABS: GLUCOSE 81 MG/DL (70-105); TOTAL PROTEIN 7.4 GM/DL (6.4-8.2)
[2022-01-07 14:10] LABS: CARBON DIOXIDE 20 MMOL/L (21-32)
[2022-01-07 14:11] LABS: BILIRUBIN,TOTAL 0.5 MG/DL (0.1-1.0)
[2022-01-07 14:12] LABS: ALKALINE PHOSPHATASE 60 U/L (40-136); CREATININE SERUM 0.72 MG/DL (0.60-1.30); GFR ESTIMATED 118
[2022-01-07 14:14] LABS: BUN/CREATININE RATIO 18
[2022-01-07 14:15] LABS: ALANINE AMINOTRANSFERASE 47 U/L (0-55)
--- NOTE | 2022-01-07 15:11 | Diagnostic Imaging Report ---
INDICATION: Chest pain. COMPARISON: None. FINDINGS: A single view of the chest demonstrates clear lungs bilaterally. The heart is normal. There is no pneumothorax. The osseous structures are normal. IMPRESSION: Negative chest. Dictated by: Dictated on workstation # [id number]
[2022-01-07 15:35] VITALS: BP 123/78
== END 2022-01-07 15:35 | disposition home or self-care (01) ==
LOC: EDUNIT# 13:28 → ER 13:29
DX: R07.9 Chest pain, unspecified (principal)
CPT/HCPCS: 36415; 71045; 80053; 84484; 84703; 85025; 86141; 93005; 96374; 96375

== ENCOUNTER 2022-03-02 17:35 | Emergency (ER) | payer MEDICAID ==
[~2022-03-02] VITALS: Ht 162 cm; Wt 72.0 kg
--- NOTE | 2022-03-02 18:12 | ED Cough/URI ---
General Chief Complaint: Cough/Cold/Flu Symptoms Stated Complaint: NEGATIVE COVID/CONGESTION/COUGH Source: patient Exam Limitations: no limitations History of Present Illness Date Seen by Provider: March 02, 2022 Time Seen by Provider: 18:10 Initial Comments Patient is a 26-year-old female presents ED with URI symptoms. She reports cou gh, scratchy throat, bodyaches, fatigue for the past 5 days mother states coughing has progressively gotten worse. She reports a wet productive cough without shortness of breath chest pain abdominal pain vomiting or diarrhea. She states she went to [facility] last tested negative for COVID, strep and influenza. Continue having this worsening cough. Several family members in the house with similar symptoms. She has received 1 COVID-vaccine in the past. Reports history of asthma. She denies of any specific wheezing. She states she has had intermittent subjective fever at home. No history of coronary artery disease, COPD, smoking. Patient not concern for . No abdominal pain, dysuria, back pain, neck pain, headache, visual changes, ear pain Allergies and Home Medications Allergies Coded Allergies: No Known Drug Allergies (Unverified , 07/31/20) Patient Home Medication List Home Medication List Reviewed: Yes Albuterol Sulfate (Proair Hfa) 1 Puff Puff, 2 PUFF IH Q4H Prescribed by: MICHAEL SPEARS on 03/02/221938 Prednisone (Prednisone) 50 Mg Tab, 50 MG PO DAILY Prescribed by: MICHAEL SPEARS on 03/02/221938 Vit W-Ca,Fe,FA(<1 mg) ( Formula) 1 Each Tablet, 1 EACH PO, (Reported) Entered as Reported by: CHON GARCIA on 04/20/20 0038 Review of Systems Review of Systems Constitutional: chills; No diaphoresis; malaise, weakness EENTM: nose congestion; No ear pain, No blurred vision, No double vision Respiratory: cough; No hemoptysis; short of breath, wheezing Cardiovascular: No chest pain, No edema Gastrointestinal: No abdominal pain, No diarrhea, No nausea, No vomiting Genitourinary: No decreased output, No discharge Musculoskeletal: No back pain, No joint pain All Other Systems Reviewed Negative Unless Noted: Yes Past Itnojny-Ccmraw-Vzarvf Hx Immunizations Up To Date Tetanus Booster (TDap): Unknown PED Vaccines UTD: No First/Initial COVID19 Vaccinat: 2020 Second COVID19 Vaccination [place]: 2020 Third COVID19 Vaccination Date: 2020 Seasonal Allergies Seasonal Allergies: Yes Past Medical History Surgeries: No Respiratory: Yes Asthma Currently Using CPAP: No Currently Using BIPAP: No Cardiac: No Neurological: No Reproductive Disorders: No Female Reproductive Disorders: Denies Sexually Transmitted Disease: Yes HIV/AIDS: No Genitourinary: Yes UTI-Chronic Gastrointestinal: Yes Gastroesophageal Reflux Musculoskeletal: No Endocrine: Yes Diabetes, Non-Insulin dep HEENT: No Cancer: No Psychosocial: Yes Anxiety, Bipolar, Depression Integumentary: No Blood Disorders: No Adverse Reaction/Blood Tranf: No Family Medical History FH: skin cancer Family history: Asthma 03 MOTHER Family history: Diabetes mellitus (type 2 diabetes) 03 MOTHER History of - disorder (anxiety, Brother has heart murmur) 03 MOTHER No Pertinent Family Hx Physical Exam Vital Signs - First Documented 03/02/22 17:57 Temp 36.2 Pulse 89 Resp 18 B/P (MAP) 111/87 (95) Pulse Ox 97 O2 Delivery Room Air Capillary Refill : Height: 5'3.50" Weight: 125lbs. 0oz. 56.396597dw; 27.00 BMI Method:Stated General Appearance: WD/WN, no apparent distress Eyes: Bilateral Eye Normal Inspection, Bilateral Eye PERRL, Bilateral Eye EOMI HEENT: PERRL/EOMI, normal ENT inspection, TMs normal, pharynx normal Neck: non-tender, full range of motion, supple, normal inspection Respiratory: chest non-tender, lungs clear, normal breath sounds, no respiratory distress, no accessory muscle use Cardiovascular: regular rate, rhythm, no edema, no gallop, no JVD Gastrointestinal: normal bowel sounds, non tender, soft, no organomegaly Extremities: normal range of motion, non-tender, normal inspection, no pedal edema, no calf tenderness Neurologic/Psychiatric: phone manager II-XII nml as tested, no motor/sensory deficits, alert, normal mood/affect, oriented x 3 Skin: normal color, warm/dry Progress/Results/Core Measures Suspected Sepsis SIRS Temperature: Pulse: Respiratory Rate: Blood Pressure / Mean: Results/Orders Lab Results Laboratory Tests Test 03/02/22 18:32 Range/Units Influenza Type A (RT-PCR) Not Detected Not Detecte Influenza Type B (RT-PCR) Not Detected Not Detecte SARS-CoV-2 RNA (RT-PCR) Not Detected Not Detecte My Orders Orders - JODY PAULSON Covid 19 Inhouse Test (03/02/22 18:07) Influenza A And B By Pcr (03/02/22 18:07) Vital Signs/I&O 03/02/22 17:57 Temp 36.2 Pulse 89 Resp 18 B/P (MAP) 111/87 (95) Pulse Ox 97 O2 Delivery Room Air Capillary Refill : Departure Communication (PCP) Patient's reports continues cough. Recent negative COVID. Resolved COVID influenza was negative. No abdominal tenderness. Vital signs stable. Other family members with similar symptoms. Likely viral in nature. Due to her history of asthma with history of asthma exacerbation she is requesting an inhaler. Will discharge with short burst steroids secondary to her asthma. Continue with Tylenol ibuprofen at home. Robitussin for cough. Mucinex or Sudafed as a alternative. If any worsening symptoms return back to ED for further evaluation. Return precaution were discussed with patient Impression Primary Impression: Upper respiratory infection Disposition: HOME, SELF-CARE Condition: Stable Departure-Patient Inst. Decision time for Depature: 19:38 Referrals: [facility] (PCP/Family) Primary Care Physician Patient Instructions: Cough, Adult (DC) Scripts Prednisone (Prednisone) 50 Mg Tab 50 MG PO DAILY, #5 TAB Prov: JODY PAULSON 03/02/22 Albuterol Sulfate (PROAIR HFA) 1 Puff Puff 2 PUFF IH Q4H, #1 EA 1 PUFF = 90 MCG Prov: JODY PAULSON 03/02/22 JODY PAULSON March 02, 2022 18:12
[2022-03-02] MEDS ORDERED: PRD50T PO (19:39)
[2022-03-02] MEDS ORDERED: RT-ALBUINH IH (19:39)
[2022-03-02 19:45] VITALS: BP 124/87
== END 2022-03-02 19:46 | disposition home or self-care (01) ==
LOC: EDUNIT# 17:35 → ER 17:36
DX: J06.9 Acute upper respiratory infection, unspecified (principal); J45.909 Unspecified asthma, uncomplicated; Z20.822 Contact with and (suspected) exposure to COVID-19
CPT/HCPCS: 87636; 99283

== ENCOUNTER 2022-06-30 15:34 | Emergency (ER) | payer MEDICAID ==
[~2022-06-30] VITALS: Ht 162.4 cm; Wt 64.8 kg
[~2022-06-30 15:34] MED LIST changes: +PRD50T PO
[2022-06-30 16:26] LABS: BILIRUBIN,URINE NEGATIVE (NEGATIVE); CLARITY,URINE SL CLOUDY; COLOR,URINE YELLOW; GLUCOSE, URINE (UA) NEGATIVE (NEGATIVE); KETONES,URINE NEGATIVE (NEGATIVE); LEUKOCYTE ESTERASE ,URINE TRACE (NEGATIVE); NITRITE,URINE NEGATIVE (NEGATIVE); PROTEIN,URINE NEGATIVE (NEGATIVE)
[2022-06-30 16:33] LABS: BACTERIA,URINE TRACE /HPF
--- NOTE | 2022-06-30 17:56 | Diagnostic Imaging Report ---
INDICATION: Abdominal pain and constipation. EXAMINATION: Abdominal film was obtained at 5:47 p.m. COMPARISON: There is no previous study for comparison. The abdominal bowel gas pattern is unremarkable. There is moderate stool in the colon. There is no overt obstruction or ileus. There are no suspicious calcifications. Bony structures are unremarkable. IMPRESSION: Unremarkable bowel gas pattern with no acute abnormality. Dictated by: Dictated on workstation # [id number]
--- NOTE | 2022-06-30 18:53 | ED Abdominal Pain ---
General Chief Complaint: Abdominal/GI Problems Stated Complaint: ABD PAIN Nursing Triage Note: PT AMB TO RM 6 WITH MOTHER. PT STATED THAT SHE HAS NOT HAD A BOWEL MOVEMENT IN OVER A WEEK AND HAS LOWER ABD PAIN AND VAGINAL ITCHING WITH BURNING DURING URINATION. Allergies and Home Medications Allergies Coded Allergies: No Known Drug Allergies (Unverified , 07/31/20) Patient Home Medication List Albuterol Sulfate (Proair Hfa) 1 Puff Puff, 2 PUFF IH Q4H Prescribed by: MICHAEL SPEARS on 03/02/221938 Prednisone (Prednisone) 50 Mg Tab, 50 MG PO DAILY Prescribed by: MICHAEL SPEARS on 03/02/221938 Vit W-Ca,Fe,FA(<1 mg) ( Formula) 1 Each Tablet, 1 EACH PO, (Reported) Entered as Reported by: CHON GARCIA on 04/20/20 0038 Past Egexawn-Wwminj-Tlywpi Hx Patient Social History Tobacco Use?: No Substance use?: No Alcohol Use?: No Pt feels they are or have been: No Immunizations Up To Date Tetanus Booster (TDap): Unknown PED Vaccines UTD: No Influenza Vaccine Up-to-Date: No; Not Current First/Initial COVID19 Vaccinat: 2020 Second COVID19 Vaccination Shady: 2020 Third COVID19 Vaccination Date: 2020 Seasonal Allergies Seasonal Allergies: Yes Past Medical History Surgery/Hospitalization HX: DENIES SURGERIES OR HOSP. Surgeries: No Respiratory: Yes Asthma Currently Using CPAP: No Currently Using BIPAP: No Cardiac: No Neurological: No Reproductive Disorders: No Female Reproductive Disorders: Denies Sexually Transmitted Disease: Yes HIV/AIDS: No Genitourinary: Yes UTI-Chronic Gastrointestinal: Yes Gastroesophageal Reflux Musculoskeletal: No Endocrine: Yes Diabetes, Non-Insulin dep HEENT: No Cancer: No Psychosocial: Yes Anxiety, Bipolar, Depression Integumentary: No Blood Disorders: No Adverse Reaction/Blood Tranf: No Family Medical History FH: skin cancer Family history: Asthma 03 MOTHER Family history: Diabetes mellitus (type 2 diabetes) 03 MOTHER History of - disorder (anxiety, Brother has heart murmur) 03 MOTHER No Pertinent Family Hx Physical Exam Vital Signs Vital Signs - First Documented 06/30/22 15:50 Pulse 80 Resp 16 B/P (MAP) 126/65 (85) Pulse Ox 97 O2 Delivery Room Air Capillary Refill : Less Than 3 Seconds Height/Weight/BMI Height: 5'3.50" Weight: 125lbs. 0oz. 56.851388ac; 24.00 BMI Method:Stated Progress/Results/Core Measures Results/Orders Lab Results Laboratory Tests Test 06/30/22 16:18 Range/Units Urine Color YELLOW Urine Clarity SL CLOUDY Urine pH 6.0 5-9 Urine Specific [place] >=1.030 1.016-1.022 Urine Protein NEGATIVE NEGATIVE Urine Glucose (UA) NEGATIVE NEGATIVE Urine Ketones NEGATIVE NEGATIVE Urine Nitrite NEGATIVE NEGATIVE Urine Bilirubin NEGATIVE NEGATIVE Urine Urobilinogen 1.0 < = 1.0 MG/DL Urine Leukocyte Esterase TRACE H NEGATIVE Urine RBC (Auto) NEGATIVE NEGATIVE Urine RBC NONE /HPF Urine WBC 5-10 H /HPF Urine Squamous Epithelial Cells 5-10 /HPF Urine Crystals NONE /LPF Urine Bacteria TRACE /HPF Urine Casts NONE /LPF Urine Mucus NEGATIVE /LPF Urine Culture Indicated YES My Orders Orders - EMILEE QUIROZ MD Ua Culture If Indicated (06/30/22 15:37) Urine Culture (06/30/22 16:18) Abdomen/[place] (06/30/22 17:27) Vital Signs/I&O 06/30/22 15:50 Pulse 80 Resp 16 B/P (MAP) 126/65 (85) Pulse Ox 97 O2 Delivery Room Air Blood Pressure Mean: 85 Departure Impression Primary Impression: Abdominal pain, lower Additional Impressions: Chronic nausea Urinary tract infection Qualified Codes: N39.0 - Urinary tract infection, site not specified Disposition: HOME, SELF-CARE Condition: Stable Departure-Patient Inst. Decision time for Depature: 18:49 Referrals: [facility] (PCP/Family) Primary Care Physician Patient Instructions: Abdominal Pain, Adult ED, Urinary Tract Infection, Adult ED Add. Discharge Instructions: Start Bactrim twice daily and continue until you can review urine culture results with your primary care provider. Urine culture results should be available Friday afternoon or Friday. At that time you can also review your pelvic culture results. Make appropriate adjustments to your treatments based on results in consultation with your primary care provider. You may continue using Zofran as prescribed for nausea and vomiting. You may use Tylenol (acetaminophen) up to 1000 mg every 6 hours as needed for pain. Avoid use of NSAID medications as this may make your nausea worse. Your chronic nausea may be related to gastritis, acid reflux, H. pylori infection, etc. Discuss further evaluation for these issues with your primary care provider. In the meantime, you may try taking an antacid medication such as omeprazole or Pepcid on a daily basis. Further work-up of your lower abdominal pain may be pursued with ultrasound at your primary care provider's discretion. Discuss this at your follow-up appointment. You do not appear to have significant constipation on your x-ray. However, if you are having hard stools that are difficult to pass, you may treat with MiraLAX (polyethylene glycol) once or twice a day until your bowels move more smoothly. Return to care if you have worsening symptoms despite following these instructions. All discharge instructions reviewed with patient and/or family. Voiced understanding. EMILEE QUIROZ MD Jun 30, 2022 18:52
[2022-06-30 19:04] VITALS: BP 114/69
== END 2022-06-30 19:02 | disposition home or self-care (01) ==
LOC: EDUNIT# 15:34 → ER 15:37
DX: N39.0 Urinary tract infection, site not specified (principal); R11.0 Nausea
CPT/HCPCS: 74018; 81000; 84703; 87088

== ENCOUNTER 2022-07-15 07:19 | Emergency (ER) | payer MEDICAID ==
[~2022-07-15] VITALS: Ht 162.5 cm; Wt 63.0 kg
[2022-07-15] MEDS ORDERED: KETOROLAC 60 MG/2 ML VIAL IM STA (07:50)
--- NOTE | 2022-07-15 07:57 | ED General ---
General Chief Complaint: Cough/Cold/Flu Symptoms Stated Complaint: BODY ACHES - SORE THROAT Nursing Triage Note: PT AMB TO RM 10 WITH COMPLAINT OF SORE THROAT, BODY ACHES, AND CHILLS FOR 3 DAYS. WENT TO [facility] YESTERDAY AND TESTED NEGATIVE FOR COVID. DID NOT GET FLU RESULTS. Source of Information: Patient Exam Limitations: No Limitations History of Present Illness Date Seen by Provider: Jul 15, 2022 Time Seen by Provider: 07:38 Initial Comments Here with report of sore throat, body aches, chills and nausea for the last 3 days. Was seen yesterday and had COVID test and flu test that were negative but she is still having symptoms and is concerned. States that it hurts to swallow although she can swallow. Reports that she is sleeping a lot. Denies other concerns. Timing/Duration: 3-4 Days Severity: Moderate Associated Systoms: No Cough; Fever/Chills, Nausea/Vomiting; No Shortness of Air, No Weakness Allergies and Home Medications Allergies Coded Allergies: No Known Drug Allergies (Unverified , 07/31/20) Patient Home Medication List Home Medication List Reviewed: Yes Albuterol Sulfate (Proair Hfa) 1 Puff Puff, 2 PUFF IH Q4H Prescribed by: MICHAEL SPEARS on 03/02/221938 Prednisone (Prednisone) 50 Mg Tab, 50 MG PO DAILY Prescribed by: MICHAEL SPEARS on 03/02/221938 Vit W-Ca,Fe,FA(<1 mg) ( Formula) 1 Each Tablet, 1 EACH PO, (Reported) Entered as Reported by: CHON GARCIA on 04/20/20 0038 Review of Systems Review of Systems Constitutional: see HPI, chills; No fever EENTM: nose congestion, throat pain; No mouth pain Respiratory: No cough, No short of breath Cardiovascular: no symptoms reported Gastrointestinal: nausea; No vomiting Genitourinary: no symptoms reported Skin: No lesions, No rash Past Mieoooy-Yxrwsp-Rpgwlz Hx Patient Social History Tobacco Use?: No Use of E-Cig and/or Vaping dev: No Substance use?: No Alcohol Use?: No Pt feels they are or have been: No Immunizations Up To Date Tetanus Booster (TDap): Unknown PED Vaccines UTD: No First/Initial COVID19 Vaccinat: 2020 Second COVID19 Vaccination Shady: 2020 Third COVID19 Vaccination Date: 2020 Seasonal Allergies Seasonal Allergies: Yes Past Medical History Surgery/Hospitalization HX: DENIES SURGERIES OR HOSP. Surgeries: No Respiratory: Yes Asthma Currently Using CPAP: No Currently Using BIPAP: No Cardiac: No Neurological: Yes Seizure Disorder Reproductive Disorders: No Female Reproductive Disorders: Denies Sexually Transmitted Disease: Yes HIV/AIDS: No Genitourinary: Yes UTI-Chronic Gastrointestinal: Yes Gastroesophageal Reflux Musculoskeletal: No Endocrine: Yes Diabetes, Non-Insulin dep HEENT: No Cancer: No Psychosocial: Yes Anxiety, Bipolar, Depression Integumentary: No Blood Disorders: No Adverse Reaction/Blood Tranf: No Family Medical History Reviewed Nursing Family Hx FH: skin cancer Family history: Asthma 03 MOTHER Family history: Diabetes mellitus (type 2 diabetes) 03 MOTHER History of - disorder (anxiety, Brother has heart murmur) 03 MOTHER No Pertinent Family Hx Physical Exam Vital Signs Vital Signs - First Documented 07/15/22 07:33 Temp 36.4 Pulse 97 Resp 16 B/P (MAP) 124/71 (88) Pulse Ox 94 O2 Delivery Room Air Capillary Refill : Less Than 3 Seconds Height, Weight, BMI Height: 5'3.50" Weight: 125lbs. 0oz. 56.814498mo; 23.00 BMI Method:Stated General Appearance: No Apparent Distress, WD/WN HEENT: TMs Normal, Pharyngeal Erythema; No Tonsillar Exudate, No Tonsillar Enlargement Neck: Non Tender, Supple Respiratory: Lungs Clear, Normal Breath Sounds Cardiovascular: Regular Rate, Rhythm, No Murmur Gastrointestinal: Non Tender, Soft Neurologic/Psychiatric: Alert, Oriented x3 Skin: Normal Color, Warm/Dry Progress/Results/Core Measures Suspected Sepsis SIRS Temperature: Pulse: 97 Respiratory Rate: 16 Blood Pressure 124 /71 Mean: 88 Results/Orders Lab Results Laboratory Tests Test 07/15/22 07:53 Range/Units Influenza Type A (RT-PCR) Not Detected Not Detecte Influenza Type B (RT-PCR) Not Detected Not Detecte SARS-CoV-2 RNA (RT-PCR) Not Detected Not Detecte My Orders Orders - OSVALDO VALENTIN MD Ketorolac Injection (Toradol Injection) (07/15/22 07:50) Covid 19 Inhouse Test (07/15/22 07:50) Influenza A And B By Pcr (07/15/22 07:50) Vital Signs/I&O 07/15/22 07:33 Temp 36.4 Pulse 97 Resp 16 B/P (MAP) 124/71 (88) Pulse Ox 94 O2 Delivery Room Air Capillary Refill : Less Than 3 Seconds Blood Pressure Mean: 88 Progress Note : Progress Note Seen and evaluated. Influenza and COVID screening ordered. Toradol 60 mg IM ordered. Monitor patient. 0833: Flu and COVID are negative. Discharged home with return precautions. Patient verbalized understanding instructions and agreement with plan. Departure Impression Primary Impression: Viral upper respiratory infection Disposition: HOME, SELF-CARE Condition: Stable Departure-Patient Inst. Decision time for Depature: 08:33 Referrals: [facility] (PCP/Family) Primary Care Physician Patient Instructions: Viral Upper Respiratory Infection, Adult (DC) Add. Discharge Instructions: All discharge instructions reviewed with patient and/or family. Voiced understanding. You may take Tylenol/acetaminophen 1000 mg every 6-8 hours as needed for pain. You may take ibuprofen 600 mg every 8 hours as needed for pain. Drink plenty of fluids and get plenty of rest. Return for worse pain, fever, vomiting, weakness, breathing problems or other concerns as needed. Follow-up with your doctor in a few days for recheck as needed. Work/School Note: Work Release Form Date Seen in the Emergency Department: Jul 15, 2022 Return to Work: Jul 17, 2022 Restrictions: No Restrictions OSVALDO VALENTIN MD Jul 15, 2022 07:57
[2022-07-15 08:40] VITALS: BP 124/71
== END 2022-07-15 08:39 | disposition home or self-care (01) ==
LOC: EDUNIT# 07:19 → ER 07:20
DX: J06.9 Acute upper respiratory infection, unspecified (principal); Z20.822 Contact with and (suspected) exposure to COVID-19
CPT/HCPCS: 87636; 99284

== ENCOUNTER 2022-07-21 20:10 | Emergency (ER) | payer MEDICAID ==
--- NOTE | 2022-07-21 20:28 | ED Chest Pain ---
General Chief Complaint: Psych/Social Disorder Stated Complaint: CHEST PAIN / ANXIETY Nursing Triage Note: ANXIETY/CHEST PAIN SINCE 1430 AFTER BEING YELLED AT BY CUSTOMER AND COWORKER AT WORK. PAIN AT A 10/10. NO OTHER SYMPTOMS Source: patient Exam Limitations: no limitations (ELVIS ANAYA APRN) History of Present Illness Date Seen by Provider: Jul 21, 2022 Time Seen by Provider: 20:30 Initial Comments Patient is a 27 yo F who presents to the ED with chest pain that began today at 1430 after she was yelled at first by a customer at work and subsequently by a coworker. Patient endorses a h/o anxiety and states she has had chest pain with anxiety attacks in the past. She states the pain is worse with deep inspiration and palpation of her central chest. She endorses felling anxious. States she has not taken anything for the symptoms. Denies every being on medications for her anxiety. States she thinks this is all anxiety related. Denies any h/o cardiopulmonary disease. Timing/Duration: 4-6 hours Severity/Quality: moderate Location: substernal, central Radiation: no radiation Activities at Onset: none Modifying Factors: improves with palpation (ELVIS ANAYA APRN) Allergies and Home Medications Allergies Coded Allergies: No Known Drug Allergies (Unverified , 07/31/20) Patient Home Medication List Home Medication List Reviewed: Yes (ELVIS ANAYA APRN) Albuterol Sulfate (Proair Hfa) 1 Puff Puff, 2 PUFF IH Q4H Prescribed by: MICHAEL SPEARS on 03/02/221938 Hydroxyzine HCl (Hydroxyzine HCl) 25 Mg Tablet, 25 MG PO Q8H PRN for ANXIETY Prescribed by: Elvis Anaya on 07/21/222117 Last Action: New Order Prednisone (Prednisone) 50 Mg Tab, 50 MG PO DAILY Prescribed by: MICHAEL SPEARS on 03/02/221938 Vit W-Ca,Fe,FA(<1 mg) ( Formula) 1 Each Tablet, 1 EACH PO, (Reported) Entered as Reported by: CHON GARCIA on 04/20/20 0038 Review of Systems Review of Systems Constitutional: no symptoms reported Respiratory: No Symptoms Reported Cardiovascular: Chest Pain Gastrointestinal: No Symptoms Reported Genitourinary: No Symptoms Reported Musculoskeletal: no symptoms reported Skin: no symptoms reported Psychiatric/Neurological: Anxiety (ELVIS ANAYA APRN) Past Sszuujh-Knkkci-Kzojex Hx Patient Social History Tobacco Use?: No Use of E-Cig and/or Vaping dev: No Substance use?: No Alcohol Use?: No Pt feels they are or have been: No (ELVIS ANAYA APRN) Immunizations Up To Date Tetanus Booster (TDap): Unknown PED Vaccines UTD: No Influenza Vaccine Up-to-Date: No; Not Current First/Initial COVID19 Vaccinat: 2020 Second COVID19 Vaccination Shady: 2020 Third COVID19 Vaccination Date: 2020 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 Surgeries: No Respiratory: Yes Asthma Currently Using CPAP: No Currently Using BIPAP: No Cardiac: No Neurological: Yes Seizure Disorder Reproductive Disorders: No Female Reproductive Disorders: Denies Sexually Transmitted Disease: Yes HIV/AIDS: No Genitourinary: Yes UTI-Chronic Gastrointestinal: Yes Gastroesophageal Reflux Musculoskeletal: No Endocrine: Yes Diabetes, Non-Insulin dep HEENT: No Cancer: No Psychosocial: Yes Anxiety, Bipolar, Depression Integumentary: No Blood Disorders: No Adverse Reaction/Blood Tranf: No (ELVIS ANAYA APRN) Family Medical History FH: skin cancer Family history: Asthma 03 MOTHER Family history: Diabetes mellitus (type 2 diabetes) 03 MOTHER History of - disorder (anxiety, Brother has heart murmur) 03 MOTHER No Pertinent Family Hx (ELVIS ANAYA APRN) Physical Exam Vital Signs Vital Signs - First Documented 07/21/22 20:14 Temp 36.9 Pulse 82 Resp 20 B/P (MAP) 120/86 (97) Pulse Ox 98 O2 Delivery Room Air (JONG,HERNANDO K DO) Vital Signs Capillary Refill : Less Than 3 Seconds (ELVIS ANAYA APRN) Height, Weight, BMI Height: 5'3.50" Weight: 125lbs. 0oz. 56.302454la; 23.00 BMI Method:Stated General Appearance: No Apparent Distress, WD/WN HEENT: PERRL/EOMI, TMs Normal, Normal ENT Inspection, Pharynx Normal Neck: Full Range of Motion, Normal Inspection, Non Tender, Supple Respiratory: Chest Non Tender, Lungs Clear, Normal Breath Sounds, No Accessory Muscle Use, No Respiratory Distress Cardiovascular: Regular Rate, Rhythm, No Edema, No Gallop, No JVD, No Murmur, Normal Peripheral Pulses Gastrointestinal: Normal Bowel Sounds, No Organomegaly, Non Tender, Soft Neurologic/Psychiatric: Alert, No Motor/Sensory Deficits (ELVIS ANAYA APRN) Progress/Results/Core Measures Results/Orders Medications Given in ED Current Medications Medications Dose Ordered Sig/Adelita Route Start Time Stop Time Status Last Admin Dose Admin Ibuprofen 600 mg ONCE ONCE PO 07/21/22 20:30 07/21/22 20:31 DC 07/21/22 20:51 600 MG (JONGALANA Jake DO) Vital Signs/I&O 07/21/22 07/21/22 20:14 21:18 Temp 36.9 Pulse 82 75 Resp 20 20 B/P (MAP) 120/86 (97) 117/70 Pulse Ox 98 99 O2 Delivery Room Air Room Air (JONGALANA K DO) Blood Pressure Mean: 97 Progress Progress Note : Progress Note Patient is nontoxic and well hydrated on exam. Pain is easily reproducible with palpation of the sternum. Deep inspiration also worsens the pain. Vital signs are reassuring without tachycardia or hypoxia. No adventitious lung sounds or increased WOB noted on exam. EKG without acute ischemic change or arrhythmia. Chest xray acutely negative. Very low suspicion for cardiac etiology of pain. Patient given a dose of ibuprofen. Will d/c home with short rx for hydroxyzine for use PRN anxiety. Follow-up with PCP for discussion on other options for anxiety control. Return precautions for urgent symptomology discussed. Patient verbalized understanding. (ELVIS ANAYA LINING SEWER) EKG : EKG Time: 20:20 Rhythm: Normal Sinus Intervals: Normal ECG Impression: Normal (ELVIS ANAYA APRN) Departure Impression Primary Impression: Anxiety Additional Impression: Chest pain Qualified Codes: R07.9 - Chest pain, unspecified Disposition: HOME, SELF-CARE Condition: Stable Departure-Patient Inst. Decision time for Depature: 21:10 (ELVIS ANAYA APRN) Referrals: [facility] (PCP/Family) Primary Care Physician Patient Instructions: Anxiety, Adult (DC), Chest Pain, Adult ED Scripts Hydroxyzine HCl (Hydroxyzine HCl) 25 Mg Tablet 25 MG PO Q8H PRN for ANXIETY for 10 Days, #20 TAB Prov: ELVIS ANAYA APRN 07/21/22 ATTENDING PHYSICIAN NOTE: I WAS PHYSICALLY PRESENT ER PHYSICIAN, BUT I WAS NOT INVOLVED IN ANY DECISION MAKING OR ANY CARE OF THIS PATIENT, AND I AM NOT COLLABORATING PHYSICIAN. (HERNANDO SUNSHINE DO) ELVIS ANAYA APRN Jul 21, 2022 20:28 HERNANDO SUNSHINE DO Jul 21, 2022 23:43
[2022-07-21] MEDS ORDERED: IBUPROFEN 600 MG (MOTRIN) TAB PO ONE (20:30)
--- NOTE | 2022-07-21 20:47 | Diagnostic Imaging Report ---
EXAM: Chest 1 view, AP/PA only. INDICATION: Chest pain. Difficulty breathing. COMPARISON: 01/07/2022. FINDINGS: Normal heart size and central pulmonary vascularity. Lungs are clear. No pleural effusion or pneumothorax. No acute osseous finding. No significant change. IMPRESSION: No acute cardiopulmonary finding. Dictated by: Dictated on workstation # [id number]
[2022-07-21 21:18] VITALS: BP 117/70
[2022-07-21] MEDS ORDERED: HYDR-700 PO (21:18)
== END 2022-07-21 21:24 | disposition home or self-care (01) ==
LOC: EDUNIT# 20:10 → ER 20:11
DX: F41.9 Anxiety disorder, unspecified (principal); R07.9 Chest pain, unspecified
CPT/HCPCS: 71045; 93005

== ENCOUNTER 2022-08-25 16:04 | Emergency (ER) | payer MEDICAID ==
[~2022-08-25] VITALS: Ht 162.6 cm; Wt 63.0 kg
[~2022-08-25 16:04] MED LIST changes: +ALBU8.5H6 IH; +HYDR-700 PO; -RT-ALBUINH IH
[2022-08-25] MEDS ORDERED: NS 100 ML (IVPB) BAG IV ONE (17:15)
[2022-08-25] MEDS ORDERED: HOLD METFORMIN - RECEIVED CONTRAST 20 ML VIAL IV SCH (17:15)
[2022-08-25] MEDS ORDERED: IOHEXOL 350 MG/ML 100 ML (OMNIPAQUE 350) VIAL IV ONE (17:15)
[2022-08-25 17:31] LABS: BASOPHILS % (AUTO) 1 % (0-10); EOSINOPHILS # (AUTO) 0.4 10^3/uL (0.0-0.3); EOSINOPHILS % (AUTO) 6 % (0-10); HEMATOCRIT 39 % (35-52); HEMOGLOBIN 12.9 g/dL (11.5-16.0); LYMPHOCYTES # (AUTO) 2.3 10^3/uL (1.0-4.0); LYMPHOCYTES % (AUTO) 32 % (12-44); MEAN CORPUSCULAR HEMOGLOBIN 28 pg (25-34); MEAN CORPUSCULAR HGB CONC 33 g/dL (32-36); MEAN CORPUSCULAR VOLUME 85 fL (80-99); MEAN PLATELET VOLUME 10.8 fL (9.0-12.2); MONOCYTES # (AUTO) 0.7 10^3/uL (0.0-1.0); MONOCYTES % (AUTO) 9 % (0-12); NEUTROPHILS # (AUTO) 3.8 10^3/uL (1.8-7.8); NEUTROPHILS % (AUTO) 52 % (42-75); PLATELET COUNT 296 10^3/uL (130-400); WHITE BLOOD COUNT 7.2 10^3/uL (4.3-11.0)
[2022-08-25 17:33] LABS: BILIRUBIN,URINE NEGATIVE (NEGATIVE); CLARITY,URINE SL CLOUDY; COLOR,URINE YELLOW; GLUCOSE, URINE (UA) NEGATIVE (NEGATIVE); KETONES,URINE NEGATIVE (NEGATIVE); LEUKOCYTE ESTERASE ,URINE NEGATIVE (NEGATIVE); NITRITE,URINE NEGATIVE (NEGATIVE); PROTEIN,URINE NEGATIVE (NEGATIVE)
[2022-08-25 17:41] LABS: BACTERIA,URINE TRACE /HPF
[2022-08-25 17:42] LABS: AMORPHOUS SEDIMENT,UR RARE AMOR URATES /LPF
[2022-08-25 17:46] LABS: ALBUMIN 4.2 GM/DL (3.2-4.5)
[2022-08-25 17:47] LABS: POTASSIUM 3.6 MMOL/L (3.6-5.0)
[2022-08-25 17:48] LABS: CALCIUM 9.1 MG/DL (8.5-10.1)
[2022-08-25 17:51] LABS: BILIRUBIN,TOTAL 0.4 MG/DL (0.1-1.0)
[2022-08-25 17:52] LABS: CREATININE SERUM 0.79 MG/DL (0.60-1.30)
--- NOTE | 2022-08-25 18:07 | ED Abdominal Pain ---
General Chief Complaint: Abdominal/GI Problems Stated Complaint: LOWER ABD PAIN Nursing Triage Note: PT AMB TO TRIAGE W C/O STABBING LOWER ABD PAIN SX LAST NIGHT INTERMITTENTLY. DENIES N/V/D. PT A&OX4. History of Present Illness Date Seen by Provider: Aug 25, 2022 Time Seen by Provider: 16:15 Initial Comments Patient is a 27-year-old female who presents to the emergency department with intermittent lower abdominal pain that is stabbing in description. Patient states the pain began last night and has persisted. She denies any fever, nausea/vomiting/diarrhea, or urinary symptoms. Denies any abnormal vaginal discharge. She has not taken anything for the symptoms today. Allergies and Home Medications Allergies Coded Allergies: No Known Drug Allergies (Unverified , 07/31/20) Patient Home Medication List Home Medication List Reviewed: Yes Albuterol Sulfate (Ventolin Hfa) 1 Puff Puff, 2 PUFF IH Q4H Prescribed by: MICHAEL SPEARS on 03/02/221938 Dicyclomine HCl (Dicyclomine HCl) 10 Mg Capsule, 10 MG PO TID PRN for PAIN-SEE DOSE INSTRUCTIONS Prescribed by: Elvis Anaya on 08/25/221912 Hydroxyzine HCl (Hydroxyzine HCl) 25 Mg Tablet, 25 MG PO Q8H PRN for ANXIETY Prescribed by: Elvis Anaya on 07/21/222117 Prednisone (Prednisone) 50 Mg Tab, 50 MG PO DAILY Prescribed by: MICHAEL SPEARS on 03/02/221938 Vit W-Ca,Fe,FA(<1 mg) ( Formula) 1 Each Tablet, 1 EACH PO, (Reported) Entered as Reported by: CHON GARCIA on 04/20/20 0038 Review of Systems Review of Systems Constitutional: no symptoms reported EENTM: No Symptoms Reported Respiratory: No Symptoms Reported Cardiovascular: No Symptoms Reported Gastrointestinal: See HPI Genitourinary: No Symptoms Reported Musculoskeletal: no symptoms reported Skin: no symptoms reported Past Yfysdgd-Gqdtdv-Rifefv Hx Patient Social History Tobacco Use?: No Use of E-Cig and/or Vaping dev: No Substance use?: No Alcohol Use?: No Immunizations Up To Date Tetanus Booster (TDap): Unknown PED Vaccines UTD: No Influenza Vaccine Up-to-Date: No; Not Current First/Initial COVID19 Vaccinat: 2020 Second COVID19 Vaccination Shady: 2020 Third COVID19 Vaccination Date: NONE COVID19 Vaccine Water Ski Assembler: LOUIE Seasonal Allergies Seasonal Allergies: Yes Past Medical History Surgery/Hospitalization HX: DENIES SURGERIES OR HOSP. Surgeries: No Respiratory: Yes Asthma Currently Using CPAP: No Currently Using BIPAP: No Cardiac: No Neurological: Yes Seizure Disorder Reproductive Disorders: No Female Reproductive Disorders: Denies Sexually Transmitted Disease: Yes HIV/AIDS: No Genitourinary: Yes UTI-Chronic Gastrointestinal: Yes Gastroesophageal Reflux Musculoskeletal: No Endocrine: Yes Diabetes, Non-Insulin dep HEENT: No Cancer: No Psychosocial: Yes Anxiety, Bipolar, Depression Integumentary: No Blood Disorders: No Adverse Reaction/Blood Tranf: No Family Medical History FH: skin cancer Family history: Asthma 03 MOTHER Family history: Diabetes mellitus (type 2 diabetes) 03 MOTHER History of - disorder (anxiety, Brother has heart murmur) 03 MOTHER No Pertinent Family Hx Physical Exam Vital Signs Vital Signs - First Documented 08/25/22 16:12 Temp 36.6 Pulse 81 Resp 20 B/P (MAP) 108/73 (85) Pulse Ox 100 O2 Delivery Room Air Capillary Refill : Less Than 3 Seconds Height/Weight/BMI Height: 5'3.50" Weight: 125lbs. 0oz. 56.143472vk; 23.00 BMI Method:Stated General Appearance: WD/WN, no apparent distress HEENT: PERRL/EOMI, normal ENT inspection, TMs normal, pharynx normal Neck: non-tender, full range of motion, supple, normal inspection Respiratory: chest non-tender, lungs clear, normal breath sounds, no respiratory distress Cardiovascular: regular rate, rhythm Gastrointestinal: normal bowel sounds, non tender, soft Extremities: normal range of motion Neurologic/Psychiatric: no motor/sensory deficits, alert, normal mood/affect, oriented x 3 Progress/Results/Core Measures Results/Orders Lab Results Laboratory Tests Test 08/25/22 17:28 Range/Units White Blood Count 7.2 4.3-11.0 10^3/uL Red Blood Count 4.56 3.80-5.11 10^6/uL Hemoglobin 12.9 11.5-16.0 g/dL Hematocrit 39 35-52 % Mean Corpuscular Volume 85 80-99 fL Mean Corpuscular Hemoglobin 28 25-34 pg Mean Corpuscular Hemoglobin Concent 33 32-36 g/dL Red Cell Distribution Width 13.2 10.0-14.5 % Platelet Count 296 130-400 10^3/uL Mean Platelet Volume 10.8 9.0-12.2 fL Immature Granulocyte % (Auto) 0 % Neutrophils (%) (Auto) 52 42-75 % Lymphocytes (%) (Auto) 32 12-44 % Monocytes (%) (Auto) 9 0-12 % Eosinophils (%) (Auto) 6 0-10 % Basophils (%) (Auto) 1 0-10 % Neutrophils # (Auto) 3.8 1.8-7.8 10^3/uL Lymphocytes # (Auto) 2.3 1.0-4.0 10^3/uL Monocytes # (Auto) 0.7 0.0-1.0 10^3/uL Eosinophils # (Auto) 0.4 H 0.0-0.3 10^3/uL Basophils # (Auto) 0.0 0.0-0.1 10^3/uL Immature Granulocyte # (Auto) 0.0 0.0-0.1 10^3/uL Urine Color YELLOW Urine Clarity SL CLOUDY Urine pH 6.0 5-9 Urine Specific [place] >=1.030 1.016-1.022 Urine Protein NEGATIVE NEGATIVE Urine Glucose (UA) NEGATIVE NEGATIVE Urine Ketones NEGATIVE NEGATIVE Urine Nitrite NEGATIVE NEGATIVE Urine Bilirubin NEGATIVE NEGATIVE Urine Urobilinogen 1.0 < = 1.0 MG/DL Urine Leukocyte Esterase NEGATIVE NEGATIVE Urine RBC (Auto) NEGATIVE NEGATIVE Urine RBC NONE /HPF Urine WBC 2-5 /HPF Urine Squamous Epithelial Cells 5-10 /HPF Urine Crystals PRESENT H /LPF Urine Amorphous Sediment RARE SHU URATES H /LPF Urine Bacteria TRACE /HPF Urine Casts NONE /LPF Urine Mucus MODERATE H /LPF Urine Culture Indicated NO Urine Test NEGATIVE NEGATIVE Sodium Level 140 135-145 MMOL/L Potassium Level 3.6 3.6-5.0 MMOL/L Chloride Level 107 98-107 MMOL/L Carbon Dioxide Level 22 21-32 MMOL/L Anion Gap 11 5-14 MMOL/L Blood Urea Nitrogen 11 7-18 MG/DL Creatinine 0.79 0.60-1.30 MG/DL Estimat Glomerular Filtration Rate 105 BUN/Creatinine Ratio 14 Glucose Level 65 L 70-105 MG/DL Calcium Level 9.1 8.5-10.1 MG/DL Corrected Calcium 8.9 8.5-10.1 MG/DL Total Bilirubin 0.4 0.1-1.0 MG/DL Aspartate Amino Transf (AST/SGOT) 15 5-34 U/L Alanine Aminotransferase (ALT/SGPT) 24 0-55 U/L Alkaline Phosphatase 58 40-136 U/L Total Protein 7.0 6.4-8.2 GM/DL Albumin 4.2 3.2-4.5 GM/DL My Orders Orders - ELVIS ANAYA UNDERWEAR TRIMMER Cbc With Automated Diff (08/25/22 17:11) Comprehensive Metabolic Panel (08/25/22 17:11) Urinalysis (08/25/22 17:11) Iv/Invasive Line Insertion .IV INSERT (08/25/22 17:11) Hcg,Qualitative Urine (08/25/22 17:11) Ct Abdomen/Pelvis W (08/25/22 17:11) Iohexol Injection (Omnipaque 350 Mg/Ml 1 (08/25/22 17:15) Received Contrast (Hold Metformin- Contr (08/25/22 17:15) Ns (Ivpb) (Sodium Chloride 0.9% Ivpb Bag (08/25/22 17:15) Medications Given in ED Vital Signs/I&O 08/25/22 08/25/22 16:12 19:16 Temp 36.6 36.6 Pulse 81 74 Resp 20 16 B/P (MAP) 108/73 (85) 110/75 Pulse Ox 100 100 O2 Delivery Room Air Room Air Blood Pressure Mean: 85 Progress Progress Note : Progress Note Patient is nontoxic and well-hydrated on exam. No adventitious lung sounds or increased work of breathing noted. Abdominal exam is reassuring without any focal provocation of pain with palpation. Patient does endorse generalized abdominal tenderness to palpation. Laboratory evaluation is reassuring other than some very mildly decreased glucose. Patient tolerated some crackers and peanut butter without issue. CT of the abdomen pelvis revealed no emergent pathology as the cause of patient's pain. There is no indication for further diagnostic testing at this time. Discussed supportive care and anticipatory guidance. Follow-up with PCP. Return precautions for urgent symptomology discussed. Patient verbalized understanding. Departure Impression Primary Impression: Abdominal pain Qualified Codes: R10.84 - Generalized abdominal pain Disposition: 01 HOME, SELF-CARE Condition: Stable Departure-Patient Inst. Decision time for Depature: 19:10 Referrals: [facility] (PCP/Family) Primary Care Physician Patient Instructions: Abdominal Pain, Adult ED Scripts Dicyclomine HCl (Dicyclomine HCl) 10 Mg Capsule 10 MG PO TID PRN for PAIN-SEE DOSE INSTRUCTIONS for 5 Days, #15 CAP 0 Refills Prov: ELVIS ANAYA APRN 08/25/22 ELVIS ANAYA APRN Aug 25, 2022 18:07
--- NOTE | 2022-08-25 18:30 | Diagnostic Imaging Report ---
PROCEDURE: CT abdomen and pelvis with contrast. TECHNIQUE: Multiple contiguous axial images were obtained through the abdomen and pelvis after administration of intravenous contrast. Auto Exposure Controls were utilized during the CT exam to meet ALARA standards for radiation dose reduction. All CT scans use one or more of the following dose optimizing techniques: automated exposure control, MA and/or KvP adjustment based on patient size and exam type or iterative reconstruction. INDICATION: Lower abdominal pain. FINDINGS: There is no focal hepatic, gallbladder, pancreatic, adrenal gland or splenic abnormality. Stomach is distended with particulate matter and gas. Kidneys reveal no hydronephrosis. There is a punctate nonobstructing stone in the midportion of the right kidney. No ureteric stone or dilatation is identified. There is no free fluid in the abdomen or pelvis. There is fluid distention of distal small bowel. No organized fluid collection or focal inflammation is seen. There is no evidence of pathologically enlarged adenopathy. Unopacified bladder is partially distended and otherwise unremarkable. IMPRESSION: Mild fluid distention of small bowel with distention of stomach as well. Findings may reflect gastroenteritis. No definite obstruction or other acute abnormality is identified. Note is made of nonobstructing right nephrolithiasis. Dictated by: Dictated on workstation # [id number]
[2022-08-25] MEDS ORDERED: DICY10CA12 PO (19:13)
[2022-08-25 19:16] VITALS: BP 110/75
== END 2022-08-25 19:17 | disposition home or self-care (01) ==
LOC: EDUNIT# 16:04 → ER 16:07
DX: R10.84 Generalized abdominal pain (principal); R73.09 Other abnormal glucose; Z32.02 Encounter for pregnancy test, result negative
CPT/HCPCS: 36415; 74177; 80053; 81000; 84703; 85025

== ENCOUNTER 2023-01-18 13:01 | Emergency (ER) | payer MEDICAID ==
[~2023-01-18] VITALS: Ht 162 cm; Wt 61.7 kg
[~2023-01-18 13:01] MED LIST changes: +DICY10CA12 PO
--- NOTE | 2023-01-18 13:40 | ED EENT ---
History of Present Illness General Chief Complaint: Dental Problems/Pain Stated Complaint: LEFT JAW PAIN Nursing Triage Note: pt c/o left-sided jaw pain x 3 weeks. pt was seen at [facility] 1 week ago and prescribed amoxicillin [id number]. pt reports pain has not improved and still rates it a 07/29. Source: family Exam Limitations: no limitations History of Present Illness Date Seen by Provider: Jan 18, 2023 Time Seen by Provider: 13:21 Allergies and Home Medications Allergies Coded Allergies: No Known Drug Allergies (Unverified , 07/31/20) Patient Home Medication List Albuterol Sulfate (Ventolin Hfa) 1 Puff Puff, 2 PUFF IH Q4H Prescribed by: MICHAEL SPEARS on 03/02/221938 Dicyclomine HCl (Dicyclomine HCl) 10 Mg Capsule, 10 MG PO TID PRN for PAIN-SEE DOSE INSTRUCTIONS Prescribed by: Elvis Anaya on 08/25/221912 Hydroxyzine HCl (Hydroxyzine HCl) 25 Mg Tablet, 25 MG PO Q8H PRN for ANXIETY Prescribed by: Elvis Anaya on 07/21/222117 Prednisone (Prednisone) 50 Mg Tab, 50 MG PO DAILY Prescribed by: MICHAEL SPEARS on 03/02/221938 Vit W-Ca,Fe,FA(<1 mg) ( Formula) 1 Each Tablet, 1 EACH PO, (Reported) Entered as Reported by: CHON GARCIA on 04/20/20 0038 Past Brwahgu-Xhmvpl-Sgyodh Hx Patient Social History Tobacco Use?: No Substance use?: No Alcohol Use?: No Pt feels they are or have been: No Immunizations Up To Date Tetanus Booster (TDap): Unknown PED Vaccines UTD: No Influenza Vaccine Up-to-Date: Yes; Up-to-Date First/Initial COVID19 Vaccinat: 2020 Second COVID19 Vaccination Shady: 2020 Third COVID19 Vaccination Date: NONE Seasonal Allergies Seasonal Allergies: Yes Past Medical History Surgery/Hospitalization HX: DENIES SURGERIES OR HOSP. Surgeries: No Respiratory: Yes Asthma Currently Using CPAP: No Currently Using BIPAP: No Cardiac: No Neurological: Yes Seizure Disorder Reproductive Disorders: No Female Reproductive Disorders: Denies Sexually Transmitted Disease: Yes HIV/AIDS: No Genitourinary: Yes UTI-Chronic Gastrointestinal: Yes Gastroesophageal Reflux Musculoskeletal: No Endocrine: Yes Diabetes, Non-Insulin dep HEENT: No Cancer: No Psychosocial: Yes Anxiety, Bipolar, Depression Integumentary: No Blood Disorders: No Adverse Reaction/Blood Tranf: No Family Medical History FH: skin cancer Family history: Asthma 03 MOTHER Family history: Diabetes mellitus (type 2 diabetes) 03 MOTHER History of - disorder (anxiety, Brother has heart murmur) 03 MOTHER No Pertinent Family Hx Physical Exam Vital Signs Vital Signs - First Documented 01/18/23 13:10 Temp 37.0 Pulse 76 Resp 20 B/P (MAP) 95/82 (86) Pulse Ox 98 O2 Delivery Room Air Height, Weight, BMI Height: 5'3.50" Weight: 125lbs. 0oz. 56.139627xm; 23.00 BMI Method:Stated Progress/Results/Core Measures Results/Orders Vital Signs/I&O 01/18/23 13:10 Temp 37.0 Pulse 76 Resp 20 B/P (MAP) 95/82 (86) Pulse Ox 98 O2 Delivery Room Air Blood Pressure Mean: 86 Departure Impression Primary Impression: Left facial pain Disposition: 01 HOME, SELF-CARE Condition: Stable Departure-Patient Inst. Decision time for Depature: 13:37 Referrals: [facility] (PCP/Family) Primary Care Physician Patient Instructions: Dental Pain ED, TMJ Exercises, Temporomandibular Joint (TMJ) Disorders Add. Discharge Instructions: Your facial pain that may be caused by dental disease or TMJ (temporomandibular joint disorder). Please see a dentist as soon as possible for further evaluation. Complete the antibiotics you are previously prescribed. Avoid eating foods that require significant pressure or crunching to chew. You may continue taking ibuprofen as prescribed or [id number] 600 mg every 6 hours as needed. Do not combine with naproxen as they are both in the NSAID family of medications. In addition to ibuprofen you may take Tylenol (acetaminophen) up to 1000 mg every 6 hours as needed. For more severe pain you may use hydrocodone as prescribed. Please be aware that hydrocodone contains 325 mg of Tylenol (acetaminophen) per tablet. Do not exceed more than 1000 mg of acetaminophen every 6 hours. Hydrocodone may also cause drowsiness so do not drive, operate machinery, or make important decisions while on hydrocodone. Hydrocodone may also cause constipation, so you may wish to use a stool softener such as Colace while you are on hydrocodone. Return to care if you develop new symptoms such as fever or if you have worsening symptoms despite following these instructions. Please read through the attached information provided. All discharge instructions reviewed with patient and/or family. Voiced understanding. Scripts Hydrocodone/Acetaminophen (Hydrocodone-Acetamin 5-325 mg) 5 Mg-325 Mg Tablet 1 TAB PO Q4H PRN for PAIN-BREAKTHROUGH, #10 TAB Prov: EMILEE QUIROZ MD 01/18/23 EMILEE QUIROZ MD Jan 18, 2023 13:40
[2023-01-18] MEDS ORDERED: ACHD5005 PO (13:45)
[2023-01-18 13:52] VITALS: BP 113/70
== END 2023-01-18 13:52 | disposition home or self-care (01) ==
LOC: EDUNIT# 13:01 → ER 13:06
DX: R68.84 Jaw pain (principal)
CPT/HCPCS: 99281

== ENCOUNTER 2023-02-22 17:15 | Emergency (ER) | payer MEDICAID ==
[~2023-02-22] VITALS: Ht 162 cm; Wt 63.9 kg
[~2023-02-22 17:15] MED LIST changes: +ACHD5005 PO
--- NOTE | 2023-02-22 18:00 | ED Lower Extremity ---
General Chief Complaint: Lower Extremity Stated Complaint: INJ LEFT LEG Nursing Triage Note: PT PRESENTS TO ED VIA POV FROM HOME WITH COMPLAINTS OF L BERNARD INJURY AFTER FALLING/SLIPPING ON STAIRS ON FRIDAY. PT ALSO REPORTS L FOOT PAIN. Source: patient Exam Limitations: no limitations (JODY PAULSON) History of Present Illness Date Seen by Provider: February 22, 2023 Time Seen by Provider: 17:56 Initial Comments Patient is a 27-year-old female presents ED with left lower leg pain. Patient states this past Friday she was walking down the stairs when she hit her lower bernard on the wooden stairs after she tripped. Denies hitting her head or loss of consciousness. She report immediate pain. Has been walking but states the pain is getting worse. Take Motrin. She noted bruising and swelling. Patient d enies of any ankle pain, knee pain, fever, chills or obvious bone deformity. (JODY PAULSON) Allergies and Home Medications Allergies Coded Allergies: No Known Drug Allergies (Unverified , 07/31/20) Patient Home Medication List Home Medication List Reviewed: Yes (JODY PAULSON) Albuterol Sulfate (Ventolin Hfa) 1 Puff Puff, 2 PUFF IH Q4H Prescribed by: MICHAEL SPEARS on 03/02/221938 Dicyclomine HCl (Dicyclomine HCl) 10 Mg Capsule, 10 MG PO TID PRN for PAIN-SEE DOSE INSTRUCTIONS Prescribed by: Elvis Anaya on 08/25/221912 Hydrocodone/Acetaminophen (Hydrocodone-Acetamin 5-325 mg) 5 Mg-325 Mg Tablet, 1 TAB PO Q4H PRN for PAIN-BREAKTHROUGH Prescribed by: EMILEE SAGASTUME on 01/18/23 1347 Hydroxyzine HCl (Hydroxyzine HCl) 25 Mg Tablet, 25 MG PO Q8H PRN for ANXIETY Prescribed by: Elvis Anaya on 07/21/222117 Prednisone (Prednisone) 50 Mg Tab, 50 MG PO DAILY Prescribed by: MICHAEL SPEARS on 03/02/221938 Vit W-Ca,Fe,FA(<1 mg) ( Formula) 1 Each Tablet, 1 EACH PO, (Reported) Entered as Reported by: CHON GARCIA on 04/20/20 0038 Review of Systems Constitutional: No chills, No diaphoresis, No malaise, No weakness EENTM: No ear pain, No blurred vision, No mouth pain, No mouth swelling Respiratory: No cough, No dyspnea on exertion Cardiovascular: No chest pain Gastrointestinal: No abdominal pain, No diarrhea, No nausea, No vomiting Genitourinary: No decreased output, No discharge Musculoskeletal: No back pain; joint pain, muscle pain, muscle stiffness Skin: change in color (JODY PAULSON) All Other Systems Reviewed Negative Unless Noted: Yes (JODY PAULSON) Past Xagofen-Pcylpt-Fzuhtc Hx Patient Social History Tobacco Use?: No Substance use?: No Alcohol Use?: No Pt feels they are or have been: No (JODY PAULSON) Immunizations Up To Date Tetanus Booster (TDap): Unknown PED Vaccines UTD: No First/Initial COVID19 Vaccinat: 2020 Second COVID19 Vaccination Shady: 2020 Third COVID19 Vaccination Date: NONE (JODY PAULSON) Seasonal Allergies Seasonal Allergies: Yes (JODY PAULSON) Past Medical History Surgery/Hospitalization HX: DENIES SURGERIES OR HOSP. Surgeries: No Respiratory: Yes Asthma Currently Using CPAP: No Currently Using BIPAP: No Cardiac: No Neurological: Yes Seizure Disorder Reproductive Disorders: No Female Reproductive Disorders: Denies Sexually Transmitted Disease: Yes HIV/AIDS: No Genitourinary: Yes UTI-Chronic Gastrointestinal: Yes Gastroesophageal Reflux Musculoskeletal: Yes (Carpal tunnel syndrome) Endocrine: Yes Diabetes, Non-Insulin dep HEENT: No Cancer: No Psychosocial: Yes Anxiety, Bipolar, Depression Integumentary: No Blood Disorders: No Adverse Reaction/Blood Tranf: No (JODY PAULSON) Family Medical History FH: skin cancer Family history: Asthma 03 MOTHER Family history: Diabetes mellitus (type 2 diabetes) 03 MOTHER History of - disorder (anxiety, Brother has heart murmur) 03 MOTHER No Pertinent Family Hx (JODY PAULSON) Physical Exam Vital Signs Vital Signs - First Documented 02/22/23 17:30 Pulse 86 Resp 18 B/P (MAP) 117/88 (98) Pulse Ox 99 (EMILEE QUIROZ MD) Vital Signs Capillary Refill : Less Than 3 Seconds (JODY PAULSON) Height, Weight, BMI Height: 5'3.50" Weight: 125lbs. 0oz. 56.418497yg; 24.00 BMI Method:Stated General Appearance: WD/WN, no apparent distress HEENT: PERRL/EOMI, normal ENT inspection, TMs normal, pharynx normal Neck: non-tender, full range of motion, supple Cardiovascular: regular rate, rhythm, no edema, no gallop, no JVD Respiratory: chest non-tender, lungs clear, normal breath sounds, no respiratory distress, no accessory muscle use Gastrointestinal: normal bowel sounds, non tender, soft, no organomegaly Back: normal inspection, no CVA tenderness Legs: left leg pain, left leg soft tissue tenderness (Bruising to the left lower bernard. Tenderness to palpate) Knees: left knee non-tender, left knee normal inspection, left knee normal range of motion Ankles: left ankle non-tender, left ankle normal inspection, left ankle normal range of motion Feet: left foot non-tender, left foot normal inspection, left foot normal range of motion Neurologic/Psychiatric: luggage maker II-XII nml as tested, no motor/sensory deficits, alert, normal mood/affect, oriented x 3 Skin: other (Bruising to left lower bernard. Tenderness to palpate. Small bruise mid bernard) (JODY PAULSON) Progress/Results/Core Measures Results/Orders Vital Signs/I&O 02/22/23 02/22/23 17:30 18:43 Pulse 86 86 Resp 18 18 B/P (MAP) 117/88 (98) 117/88 Pulse Ox 99 99 (EMILEE QUIROZ MD) Blood Pressure Mean: 98 Departure Communication (PCP) Bruising to the left lower bernard. Due to continued worsening pain x-ray was ordered. X-ray was negative for fracture. Discussed the bruising likely secondary from the injury. This bruising should improve. Ice to help with pain and swelling. Anti-inflammatories for pain. Range of motion exercises. Return precaution were discussed. (JODY PAULSON) Impression Primary Impression: Contusion of leg, left Disposition: 01 HOME, SELF-CARE Condition: Stable Departure-Patient Inst. Decision time for Depature: 18:00 (JODY PAULSON) Referrals: [facility] (PCP/Family) Primary Care Physician Patient Instructions: Minor Contusion ED Add. Discharge Instructions: Recommend ice for swelling. Anti-inflammatories for pain. May take another week to fully heal. All discharge instructions reviewed with patient and/or family. Voiced understanding. ATTENDING PHYSICIAN NOTE: I was physically present as attending physician in the emergency department during the care of this patient, but I was not directly involved in the decision making or delivery of care for this patient. (EMILEE QUIROZ MD) JODY PAULSON February 22, 2023 18:00 EMILEE QUIROZ MD February 22, 2023 19:29
--- NOTE | 2023-02-22 18:12 | Diagnostic Imaging Report ---
INDICATION: Lower leg pain. Padilla injury after fall on Friday. FINDINGS: There is no cortical disruption demonstrated of the tibia or of the fibula. There is no evidence to suggest an acute stress reaction. There is no suspicious bone lesion or soft tissue foreign body. Alignment of the knee and ankle appear unremarkable on this nondedicated exam. IMPRESSION: Negative radiographs of the left lower leg. Dictated by: Dictated on workstation # [id number]
[2023-02-22 18:43] VITALS: BP 117/88
== END 2023-02-22 18:42 | disposition home or self-care (01) ==
LOC: EDUNIT# 17:15 → ER 17:18
DX: S80.12XA Contusion of left lower leg, initial encounter (principal); W01.0XXA Fall on same level from slipping, tripping and stumbling without subsequent striking against object, initial encounter; Y93.01 Activity, walking, marching and hiking; Y92.009 Unspecified place in unspecified non-institutional (private) residence as the place of occurrence of the external cause
CPT/HCPCS: 73590

== ENCOUNTER 2023-06-19 23:19 | Emergency (ER) | payer MEDICAID ==
[~2023-06-19] VITALS: Ht 162.6 cm; Wt 68.0 kg
[2023-06-19 23:25] VITALS: BP 114/75
--- NOTE | 2023-06-19 23:33 | ED General ---
General Stated Complaint: RUNNY NOSE,SORE THROAT Source of Information: Patient Exam Limitations: No Limitations History of Present Illness Date Seen by Provider: Jun 19, 2023 Time Seen by Provider: 23:21 Initial Comments 28-year-old female presents for cough runny nose sore throat and intermittent chills. Her child has similar symptoms at home. No other sick contacts. Symptoms present for 3 to 4 days. All other systems reviewed and negative except documented per HPI. Voice recognition software was used to help create this chart Allergies and Home Medications Allergies Coded Allergies: No Known Drug Allergies (Unverified , 07/31/20) Patient Home Medication List Home Medication List Reviewed: Yes Albuterol Sulfate (Ventolin Hfa) 1 Puff Puff, 2 PUFF IH Q4H Prescribed by: MICHAEL SPEARS on 03/02/221938 Dicyclomine HCl (Dicyclomine HCl) 10 Mg Capsule, 10 MG PO TID PRN for PAIN-SEE DOSE INSTRUCTIONS Prescribed by: Elvis Anaya on 08/25/221912 Hydrocodone/Acetaminophen (Hydrocodone-Acetamin 5-325 mg) 5 Mg-325 Mg Tablet, 1 TAB PO Q4H PRN for PAIN-BREAKTHROUGH Prescribed by: EMILEE SAGASTUME on 01/18/23 1347 Hydroxyzine HCl (Hydroxyzine HCl) 25 Mg Tablet, 25 MG PO Q8H PRN for ANXIETY Prescribed by: Elvis Anaya on 07/21/222117 Prednisone (Prednisone) 50 Mg Tab, 50 MG PO DAILY Prescribed by: MICHAEL SPEARS on 03/02/221938 Vit W-Ca,Fe,FA(<1 mg) ( Formula) 1 Each Tablet, 1 EACH PO, (Reported) Entered as Reported by: CHON GARCIA on 04/20/20 0038 Review of Systems Review of Systems Constitutional: see HPI Past Ysgnkoq-Uxiwmy-Ssamem Hx Patient Social History Tobacco Use?: No Use of E-Cig and/or Vaping dev: No Substance use?: No Alcohol Use?: No Immunizations Up To Date Tetanus Booster (TDap): Unknown PED Vaccines UTD: No First/Initial COVID19 Vaccinat: 2020 Second COVID19 Vaccination Shady: 2020 Third COVID19 Vaccination Date: NONE Seasonal Allergies Seasonal Allergies: Yes Past Medical History Surgery/Hospitalization HX: DENIES SURGERIES OR HOSP. Surgeries: No Respiratory: Yes Asthma Currently Using CPAP: No Currently Using BIPAP: No Cardiac: No Neurological: Yes Seizure Disorder Reproductive Disorders: No Female Reproductive Disorders: Denies Sexually Transmitted Disease: Yes HIV/AIDS: No Genitourinary: Yes UTI-Chronic Gastrointestinal: Yes Gastroesophageal Reflux Musculoskeletal: Yes (Carpal tunnel syndrome) Endocrine: Yes Diabetes, Non-Insulin dep HEENT: No Cancer: No Psychosocial: Yes Anxiety, Bipolar, Depression Integumentary: No Blood Disorders: No Adverse Reaction/Blood Tranf: No Family Medical History FH: skin cancer Family history: Asthma 03 MOTHER Family history: Diabetes mellitus (type 2 diabetes) 03 MOTHER History of - disorder (anxiety, Brother has heart murmur) 03 MOTHER No Pertinent Family Hx Physical Exam Vital Signs Capillary Refill : Height, Weight, BMI Height: 5'3.50" Weight: 125lbs. 0oz. 56.033903bu; 24.00 BMI Method:Stated General Appearance: No Apparent Distress, WD/WN Eyes: Bilateral Eye Normal Inspection, Bilateral Eye PERRL, Bilateral Eye EOMI HEENT: PERRL/EOMI, TMs Normal, Normal ENT Inspection, Pharynx Normal Neck: Full Range of Motion, Normal Inspection, Non Tender, Supple Respiratory: Chest Non Tender, Lungs Clear, Normal Breath Sounds, No Accessory Muscle Use, No Respiratory Distress Cardiovascular: Regular Rate, Rhythm, No Murmur, Normal Peripheral Pulses Gastrointestinal: Normal Bowel Sounds, No Organomegaly, Non Tender, Soft Back: Normal Inspection, No Vertebral Tenderness Extremity: Normal Capillary Refill, No Calf Tenderness Neurologic/Psychiatric: Alert, Oriented x3 Skin: Normal Color, Warm/Dry Progress/Results/Core Measures Suspected Sepsis SIRS Temperature: Pulse: Respiratory Rate: Blood Pressure / Mean: Results/Orders Vital Signs/I&O Capillary Refill : Departure Communication (Admissions) Patient is hemodynamically stable with normal vital signs. Nontoxic in appearance with a benign exam. No indication for further work-up or emergent condition at this time. Discharged in stable condition with supportive care Impression Primary Impression: Viral URI with cough Disposition: HOME, SELF-CARE Condition: Stable Departure-Patient Inst. Referrals: [facility] (PCP/Family) Primary Care Physician Patient Instructions: Upper Respiratory Infection ED Add. Discharge Instructions: Gargle salt water as needed for sore throat. Increase your fluids and rest. Alternate ibuprofen and Tylenol. Follow-up with your primary doctor for any nonemergent needs. Return to the emergency department for severe concerns. SHELTON MULLINS DO Jun 19, 2023 23:33
== END 2023-06-19 23:41 | disposition home or self-care (01) ==
LOC: EDUNIT# 23:19 → ER 23:21
DX: J06.9 Acute upper respiratory infection, unspecified (principal)
CPT/HCPCS: 99281

== ENCOUNTER 2023-09-16 15:08 | Emergency (ER) | payer MEDICAID ==
[~2023-09-16] VITALS: Ht 160 cm; Wt 68.0 kg
[~2023-09-16 15:08] MED LIST changes: +DICY-11 PO; -DICY10CA12 PO
[2023-09-16] MEDS ORDERED: ORPHENADRINE 60 MG/2 ML AMP (ED ONLY) IV ONE (16:00)
[2023-09-16] MEDS ORDERED: KETOROLAC INJ 30 MG/ML VIAL IVP ONE (16:00)
--- NOTE | 2023-09-16 16:19 | ED General ---
General Chief Complaint: Cough/Cold/Flu Symptoms Stated Complaint: SEVERE NECK PAIN AND UPPER BACK PAIN Nursing Triage Note: ARRIVES TO ROOM 5 THIS AFTERNOON WITH A C/O UPPER BACK PAIN, RUNNY NOSE, BODY ACHES AND HEADACHE. STATES THE BACK PAIN STARTED ABOUT 4 DAYS AGO AND SHE WAS TO SEE HER REGULAR PROVIDER AT 4 PM TODAY BUT SHE COULDNT WAIT BECAUSE THE PAIN WAS SO BAD. Source of Information: Patient Exam Limitations: No Limitations History of Present Illness Date Seen by Provider: Sep 16, 2023 Time Seen by Provider: 15:41 Allergies and Home Medications Allergies Coded Allergies: No Known Drug Allergies (Unverified , 07/31/20) Patient Home Medication List Albuterol Sulfate (Ventolin Hfa) 1 Puff Puff, 2 PUFF IH Q4H Prescribed by: MICHAEL SPEARS on 03/02/221938 Dicyclomine HCl (Dicyclomine HCl) 10 Mg Capsule, 10 MG PO TID PRN for PAIN-SEE DOSE INSTRUCTIONS Prescribed by: Elvis Anaya on 08/25/221912 Hydrocodone/Acetaminophen (Hydrocodone-Acetamin 5-325 mg) 5 Mg-325 Mg Tablet, 1 TAB PO Q4H PRN for PAIN-BREAKTHROUGH Prescribed by: EMILEE SAGASTUME on 01/18/23 1347 Hydroxyzine HCl (Hydroxyzine HCl) 25 Mg Tablet, 25 MG PO Q8H PRN for ANXIETY Prescribed by: Elvis Anaya on 07/21/222117 Prednisone (Prednisone) 50 Mg Tab, 50 MG PO DAILY Prescribed by: MICHAEL SPEARS on 03/02/221938 Vit W-Ca,Fe,FA(<1 mg) ( Formula) 1 Each Tablet, 1 EACH PO, (Reported) Entered as Reported by: CHON GARCIA on 04/20/20 0038 Past Luqfpvq-Fhngfq-Xyeyum Hx Patient Social History Tobacco Use?: No Use of E-Cig and/or Vaping dev: No Substance use?: No Alcohol Use?: No Pt feels they are or have been: No Immunizations Up To Date Tetanus Booster (TDap): Unknown PED Vaccines UTD: No Influenza Vaccine Up-to-Date: No; Not Current First/Initial COVID19 Vaccinat: 3 SHOTS Second COVID19 Vaccination Shady: 2021 Third COVID19 Vaccination Date: NONE Seasonal Allergies Seasonal Allergies: Yes Past Medical History Surgery/Hospitalization HX: DENIES SURGERIES, MED HX OF DEPRESSION AND ANXIETY Surgeries: No Respiratory: Yes Asthma Currently Using CPAP: No Currently Using BIPAP: No Cardiac: No Neurological: Yes Seizure Disorder Last Menstrual Period: Sep 08, 2023 Reproductive Disorders: No Female Reproductive Disorders: Denies Sexually Transmitted Disease: Yes HIV/AIDS: No Genitourinary: Yes UTI-Chronic Gastrointestinal: Yes Gastroesophageal Reflux Musculoskeletal: Yes (Carpal tunnel syndrome) Endocrine: Yes Diabetes, Non-Insulin dep HEENT: No Cancer: No Psychosocial: Yes Anxiety, Bipolar, Depression Integumentary: No Blood Disorders: No Adverse Reaction/Blood Tranf: No Family Medical History FH: skin cancer Family history: Asthma 03 MOTHER Family history: Diabetes mellitus (type 2 diabetes) 03 MOTHER History of - disorder (anxiety, Brother has heart murmur) 03 MOTHER No Pertinent Family Hx Physical Exam Vital Signs Vital Signs - First Documented 09/16/23 15:40 Temp 37.2 Pulse 107 Resp 18 B/P (MAP) 115/88 (97) Pulse Ox 96 O2 Delivery Room Air Capillary Refill : Less Than 3 Seconds Height, Weight, BMI Height: 5'3.50" Weight: 125lbs. 0oz. 56.925365ry; 26.00 BMI Method:Stated Progress/Results/Core Measures Suspected Sepsis SIRS Temperature: Pulse: 107 Respiratory Rate: 18 Blood Pressure 115 /88 Mean: 97 Results/Orders Lab Results Laboratory Tests Test 09/16/23 15:56 Range/Units Influenza Type A (RT-PCR) Not Detected Not Detecte Influenza Type B (RT-PCR) Not Detected Not Detecte SARS-CoV-2 RNA (RT-PCR) Not Detected Not Detecte My Orders Orders - EMILEE QUIROZ MD Covid 19 Inhouse Test (09/16/23 15:58) Influenza A And B By Pcr (09/16/23 15:58) Ed Iv/Invasive Line Start (09/16/23 15:58) Orphenadrine Inj (Ed Only) (Orphenadrine (09/16/23 16:00) Ketorolac Injection (Ketorolac Injection (09/16/23 16:00) Medications Given in ED Current Medications Medications Dose Ordered Sig/Adelita Route Start Time Stop Time Status Last Admin Dose Admin Ketorolac Tromethamine 15 mg ONCE ONCE IVP 09/16/23 16:00 09/16/23 16:01 DC 09/16/23 16:13 15 MG Orphenadrine Citrate 60 mg ONCE ONCE IV 09/16/23 16:00 09/16/23 16:01 DC 09/16/23 16:13 60 MG Vital Signs/I&O 09/16/23 15:40 Temp 37.2 Pulse 107 Resp 18 B/P (MAP) 115/88 (97) Pulse Ox 96 O2 Delivery Room Air Capillary Refill : Less Than 3 Seconds Blood Pressure Mean: 97 Departure Impression Primary Impression: Muscle spasms of neck Additional Impression: Upper respiratory infection Qualified Codes: J06.9 - Acute upper respiratory infection, unspecified Disposition: HOME, SELF-CARE Condition: Improved Departure-Patient Inst. Decision time for Depature: 17:05 Referrals: VALDEZ ENRIQUE APRN (PCP/Family) Primary Care Physician Patient Instructions: Muscle Spasm ED, Viral Upper Respiratory Infection, Adult (DC) Add. Discharge Instructions: Drink plenty of clear liquids to stay well-hydrated. You may take Tylenol (acetaminophen) up to 1000 mg every 6 hours as needed. You may also add an NSAID medication to Tylenol. Some options include naproxen (Aleve) up to 500 mg twice a daily or ibuprofen up to 600 mg every 6 hours as needed. Use cyclobenzaprine muscle relaxer as prescribed. This medication may cause drowsiness, so use with caution. Do not drive, operate machinery, or make important decisions while on cyclobenzaprine. Gentle stretching and gentle heat may also help relax your muscles and alleviate pain. Follow-up with your primary care provider if symptoms are persisting. Return to the ER if you have worsening symptoms despite following these instructions. All discharge instructions reviewed with patient and/or family. Voiced understanding. Scripts Cyclobenzaprine HCl (Cyclobenzaprine HCl) 10 Mg Tablet 10 MG PO Q8H PRN for SPASMS, #12 TAB 0 Refills Prov: EMILEE QUIROZ MD 09/16/23 EMILEE QUIROZ MD Sep 16, 2023 16:19
[2023-09-16] MEDS ORDERED: CYCL10TA25 PO (17:08)
[2023-09-16 17:25] VITALS: BP 107/78
== END 2023-09-16 17:24 | disposition home or self-care (01) ==
LOC: EDUNIT# 15:08 → ER 15:10
DX: M62.838 Other muscle spasm (principal); J06.9 Acute upper respiratory infection, unspecified
CPT/HCPCS: 87636